=== PATIENT | female | born 1945 | race Caucasian/White ===

== ENCOUNTER 2019-12-26 17:49 | Inpatient (IN) | payer MEDICARE, SELFPAY ==
[2019-12-26] VITALS (11 sets, daily range): BP systolic 165–228; BP diastolic 94–110; PULSE 82–102; RESP 8–33; TEMP 36.7–36.8; O2SAT 94–100; BMI 15.2
--- NOTE | 2019-12-26 17:49 | ED_ITS ---
Entered by Latonya Hudson, acting as scribe for HPI - SOB/Dyspnea General: Chief Complaint: Shortness of Breath/Dyspnea Stated Complaint: SOB Time Seen by Provider: 12/26/19 18:17 History of Present Illness: HPI Narrative: 74 yo female presents with shortness of breath. Pt has COPD. Family has noticed that pt has been altered more diana. Pt states that she will panic when she becomes increasingly short of breath. Family states that she has been coughing. MD elicited complaint: shortness of breath Associated symptoms: Reports orthopnea; Deny abdominal pain, chest pain, dizziness, fever(s), nausea, palpitations or vomiting Review of Systems Const: Denies: fever or chills Eyes: Denies: change in vision or blurry vision ENMT: Reports: painful swallowing and hoarseness; Denies: swelling of lips/tongue or facial/sinus pain Card: Reports: shortness of breath on exertion and shortness of breath when lying down; Denies: chest pain, palpitations, irregular heart rhythm, edema or swelling of feet/ankles Resp: Reports: shortness of breath, productive cough and wheezing; Denies: non-productive cough GI: Denies: abdominal pain, nausea or vomiting : Denies: painful urination or blood in urine Skin/Breast: Denies: rash, itching or redness Neuro: Reports: confusion; Denies: headache, dizziness or vertigo Psych: Reports: anxiety PFSH ED PFSH: Statuses (acute, chronic, etc) shown below reflect problem list status as previously entered and may not be historically accurate Medical History (Updated 12/26/19 @ 22:53 by Adalberto Roman MD) Anxiety and depression (Acute) Chest pain (Acute) COPD (chronic obstructive pulmonary disease) (Acute) Hyperlipidemia (Acute) Hypertension (Acute) Multiple sclerosis (Acute) Type 2 diabetes mellitus (Acute) Surgical History (Updated 12/26/19 @ 22:46 by Adalberto Roman MD) History of appendectomy (Acute) Family History (Updated 12/26/19 @ 22:46 by Adalberto Roman MD) Other Diabetes Hypertension Social History (Updated 12/26/19 @ 22:46 by Adalberto Roman MD) Smoking and tobacco status: current some day smoker Alcohol intake: never Substance/Drug Use: never Physical Exam Const: GENERAL APPEARANCE: well developed ORIENTATION/CONSCIOUSNESS: Yes oriented to person; not oriented to place and not oriented to time HENMT: COMMON NORMALS: normocephalic, external ears normal and external nose normal HEAD & SCALP: normocephalic; no scalp tenderness FACE & SINUS: normal facial exam NOSE: external nose normal and no nasal discharge EXTERNAL EAR: Yes external ears normal MOUTH: tongue normal TEETH & GINGIVA: no abnormal tooth and associated gingiva THROAT: posterior oropharynx normal; no peritonsillar mass Eye: COMMON NORMALS: PERRL, EOMs intact bilaterally and conjunctivae normal EYELID: eyelids normal CONJUNCTIVA: Yes conjunctivae normal PUPIL: Yes PERRL Neck/C-Spine: COMMON NORMALS: full ROM GENERAL: No tracheal deviation Chest: COMMONS NORMALS: inspection of chest normal CHEST: No tenderness Resp: EFFORT & INSPECTION: Yes tachypneic, Yes respiratory distress, No retractions, Yes uses accessory muscles and No tracheal deviation AUSCULTATION: no rhonchi, wheezes and diminished lung sounds Cardio: COMMON NORMALS: regular rate and regular rhythm RATE: regular rate RHYTHM: regular rhythm HEART SOUNDS: no murmurs PERIPHERAL PULSES: radial pulses present GI: INSPECTION: No abdominal distension AUSCULTATION: No hyperactive bowel sounds and No hypoactive bowel sounds PALPATION: No guarding and No rigid Neuro: SENSORIUM/ORIENTATION: Yes oriented to person, No oriented to place and No oriented to time Psych: COMMON NORMALS: negative for mental status grossly normal Skin: COMMON NORMALS: no rashes or lesions noted GENERAL SKIN EXAM: no rashes or lesions noted Course ED course: 74-year-old female presents with confusion, and significant shortness of breath with wheezing. She had a bit of productive cough, no fever. She was found to be in respiratory acidosis with a PCO2 of 84. Since she was awake and talking, BiPAP trial was ordered. She has been given nebulizer treatments as well as Solu-Medrol. She is somewhat improved. Blood gas repeat is pending. She does not have pneumonia or an infiltrate. Her BNP is mildly elevated, but troponins did not change. She will be admitted for COPD exacerbation and hypoxic hypercapnic respiratory failure. Consultations: Consultation #1: sandy Vital Signs: Vital signs: Vital Signs Temperature 98.1 F 12/26/19 22:39 Pulse Rate 102 H 12/26/19 23:55 Respiratory Rate 20 H 12/26/19 22:39 Blood Pressure 179/110 12/26/19 22:39 Pulse Oximetry 96 12/26/19 23:55 MDM - SOB/Dyspnea Lab Data: Labs: Lab Results 12/26/19 12/26/19 12/26/19 Range/Units 18:50 18:50 18:50 WBC 8.8 (4.0-10.0) 10^3/ uL RBC 4.08 L (4.1-5.3) 10^6/u L Hgb 12.7 (11.5-15.3) g/dL Hct 41.3 (37.0-47.0) % MCV 101.2 H (81-99) fL MCH 31.1 (28.0-34.0) pg MCHC 30.8 (30.0-36.0) g/dL RDW 11.4 L (12.1-15.1) % Plt Count 290 (130-400) 10^3/c mm MPV 10.0 (7.4-10.4) fL Neut % (Auto) 84.8 % Lymph % (Auto) 9.0 % [place] % (Auto) 5.0 % Eos % (Auto) 0.5 % Baso % (Auto) 0.5 % Neut # (Auto) 7.4 (1.8-7.7) 10^3/u L Lymph # (Auto) 0.8 (0.8-4.8) 10^3/u L [place] # (Auto) 0.4 (0.2-0.9) 10^3/u L Eos # (Auto) 0.0 (0.0-0.8) 10^3/u L Baso # (Auto) 0.0 (0.0-0.1) 10^3/u L Nucleated RBC % (a uto) 0 % Nucleated RBCs # 0.0 /100WBC Specimen Type Sample Site ABG pH (7.35-7.45) ABG pCO2 (35-45) mmHg ABG pO2 (80.0-100.0) mmH g ABG HCO3 (22-26) mmol/L ABG Base Excess (-2.0-2.0) mmol/ L Bob Test Hematocrit (37-47) % Hgb O2 Saturation (95-100) % Carboxyhemoglobin (0.4-20.1) %THgb Methemoglobin (0.4-1.5) % Total Hemoglobin (12-16) g/dL O2 Delivery Device O2 Liters/Min % Access Registrar ID Sodium 131 L (136-145) mmol/L Potassium 4.5 (3.5-5.1) mmol/L Chloride 82 L (98-107) mmol/L Carbon Dioxide 41 H (22-29) mmol/L Anion Gap 12.5 (5-19) BUN 14 (8-23) mg/dL Creatinine 0.5 (0.5-0.9) mg/dL Glucose 136 H (65-115) mg/dL Calcium 9.6 (8.5-10.5) mg/dL Total Bilirubin 0.2 (0.15-1.2) mg/dL AST 15 (0-32) U/L ALT 13 (0-33) U/L Alkaline Phosphata se 108 H (35-105) IU/L Troponin T Baselin e 15 H (0-10) ng/mL Troponin T 120 Min [place] (0-10) ng/mL Delta Troponin T (0-10) ABS# NT-Pro-B Natriuret Pep 1055 H (0-450) pg/mL Total Protein 6.5 L (6.6-8.7) g/dL Albumin 4.1 (3.5-5.2) g/dL Globulin 2.4 (1.3-4.6) g/dL Influenza Type A A g (Negative) POC Influenza B Ag (Negative) 12/26/19 12/26/19 12/26/19 Range/Units 19:10 19:30 20:30 WBC (4.0-10.0) 10^3/ uL RBC (4.1-5.3) 10^6/u L Hgb (11.5-15.3) g/dL Hct (37.0-47.0) % MCV (81-99) fL MCH (28.0-34.0) pg MCHC (30.0-36.0) g/dL RDW (12.1-15.1) % Plt Count (130-400) 10^3/c mm MPV (7.4-10.4) fL Neut % (Auto) % Lymph % (Auto) % [place] % (Auto) % Eos % (Auto) % Baso % (Auto) % Neut # (Auto) (1.8-7.7) 10^3/u L Lymph # (Auto) (0.8-4.8) 10^3/u L [place] # (Auto) (0.2-0.9) 10^3/u L Eos # (Auto) (0.0-0.8) 10^3/u L Baso # (Auto) (0.0-0.1) 10^3/u L Nucleated RBC % (a uto) % Nucleated RBCs # /100WBC Specimen Type Arterial Sample Site Brachial, right ABG pH 7.32 L (7.35-7.45) ABG pCO2 84.3 H* (35-45) mmHg ABG pO2 77.2 L (80.0-100.0) mmH g ABG HCO3 43.2 H (22-26) mmol/L ABG Base Excess 12.3 H (-2.0-2.0) mmol/ L Bob Test Pos Hematocrit 49.9 H (37-47) % Hgb O2 Saturation 92.3 L (95-100) % Carboxyhemoglobin 2.2 (0.4-20.1) %THgb Methemoglobin 0.8 (0.4-1.5) % Total Hemoglobin 16.3 H (12-16) g/dL O2 Delivery Device Nc O2 Liters/Min 3.0 % Access Registrar ID anonymous Sodium (136-145) mmol/L Potassium (3.5-5.1) mmol/L Chloride (98-107) mmol/L Carbon Dioxide (22-29) mmol/L Anion Gap (5-19) BUN (8-23) mg/dL Creatinine (0.5-0.9) mg/dL Glucose (65-115) mg/dL Calcium (8.5-10.5) mg/dL Total Bilirubin (0.15-1.2) mg/dL AST (0-32) U/L ALT (0-33) U/L Alkaline Phosphata se (35-105) IU/L Troponin T Baselin e (0-10) ng/mL Troponin T 120 Min [place] 16.66 H (0-10) ng/mL Delta Troponin T 1.66 (0-10) ABS# NT-Pro-B Natriuret Pep (0-450) pg/mL Total Protein (6.6-8.7) g/dL Albumin (3.5-5.2) g/dL Globulin (1.3-4.6) g/dL Influenza Type A A g Negative (Negative) POC Influenza B Ag Negative (Negative) Critical Care Time Critical Care Time: Critical Care Time: Yes Total Critical Care Time: 35 Attestation: This case had a high probability of a clinically significant, sudden, or life threatening deterioration of this patient's condition which required my full and direct attention, intervention and personal management. Discharge Plan Discharge Admit Provider: Adalberto Roman Discharge Date/Time: 12/26/19 23:17 Coding Level of Care Code ED Pearl Diver for Chg Fwd The documentation recorded by the Tristan harris Kialy, accurately reflects the service I personally performed and the decisions made by , Vitaly Barksdale DO Dec 26, 2019 17:49
--- NOTE | 2019-12-26 18:37 | XR_ITS ---
WS: [id number] ONE VIEW CHEST HISTORY: 74 years old Female with sob AP upright chest comparison 05/20/2017 FINDINGS: Marked lung hyperexpansion reidentified. No pneumothorax or definite pleural effusion. Elongation of the cardiomediastinal silhouette. Central pulmonary artery enlargement. No subdiaphragmatic free air. Diffuse bone demineralization. XR/XR chest 1V portable [id number] IMPRESSION: Severe chronic emphysema; no acute cardiopulmonary findings.
--- NOTE | 2019-12-26 18:38 | ECG_ITS ---
Measurements Intervals [place] Rate: 80 P: 77 TN: 96 QRS: 64 QRSD: 86 T: 74 QT: 343 QTc: 396 SINUS RHYTHM WITH SHORT TN INTERVAL POSSIBLE RIGHT VENTRICULAR CONDUCTION DELAY [RSR (QR) IN V1/V2] Compared to ECG 05/20/2017 09:07:23 Short TN interval now present Electronically Signed On 12-26-2019 22:17:43 DESIZING MACHINE OPERATOR by Gabbie Romero M.D. [email or web address]
[2019-12-26] MEDS: enalaprilat 1.25 mg/mL Inj IVP (18:52)
[2019-12-26 19:01] LABS: Basophils % 0.5 %; Eosinophils % 0.5 %; Hematocrit 41.3 % (37.0-47.0); Hemoglobin 12.7 g/dL (11.5-15.3); Lymphocytes # 0.8 10^3/uL (0.8-4.8); Mean Corpuscular HGB Conc 30.8 g/dL (30.0-36.0); Mean Corpuscular Hemoglobin 31.1 pg (28.0-34.0); Mean Corpuscular Volume 101.2 fL (81-99); Monocytes # 0.4 10^3/uL (0.2-0.9); Neutrophils # 7.4 10^3/uL (1.8-7.7); Neutrophils % 84.8 %; Nucleated Red Blood Cells % 0 %; Platelet Count 290 10^3/cmm (130-400); Red Blood Count 4.08 10^6/uL (4.1-5.3); Red Cell Distribution Width 11.4 % (12.1-15.1); White Blood Count 8.8 10^3/uL (4.0-10.0)
[2019-12-26 19:19] LABS: Troponin(5th) Baseline 15 ng/mL (0-10)
[2019-12-26 19:29] LABS: Alanine Aminotransferase 13 U/L (0-33); Albumin Level 4.1 g/dL (3.5-5.2); Alkaline Phosphatase 108 IU/L (35-105); Anion Gap 12.5 (5-19); Aspartate Amino Transferase 15 U/L (0-32); Blood Urea Nitrogen 14 mg/dL (8-23); Calcium 9.6 mg/dL (8.5-10.5); Chloride 82 mmol/L (98-107); Creatinine Clr Calc Pharmacy 42.8391; Globulin 2.4 g/dL (1.3-4.6); Glucose 136 mg/dL (65-115); NT Pro B Type Natriuretic Pept 1055 pg/mL (0-450); Potassium 4.5 mmol/L (3.5-5.1); Sodium 131 mmol/L (136-145); Total Bilirubin 0.2 mg/dL (0.15-1.2); Total Protein 6.5 g/dL (6.6-8.7)
[2019-12-26] MEDS: ipratropium-albuterol 3 mL Neb INHALATION (19:30)
[2019-12-26 19:41] LABS: ABG PH Result 7.32 (7.35-7.45); Arterial Blood Gas Hematocrit 49.9 % (37-47); Base Excess ABG 12.3 mmol/L (-2.0-2.0); Blood Gas Allen Test Pos; Blood Gas Sample Site Brachial, right; Blood Gas Sample Type Arterial; Carboxyhemoglobin 2.2 %THgb (0.4-20.1); HCO3 ABG 43.2 mmol/L (22-26); HGB O2 Sat 92.3 % (95-100); Methemoglobin 0.8 % (0.4-1.5); Oxygen Device NC; PO2 ABG 77.2 mmHg (80.0-100.0); Total Hemoglobin 16.3 g/dL (12-16)
[2019-12-26 19:41] LABS: Carbon Dioxide 41 mmol/L (22-29)
[2019-12-26 20:03] LABS: Influenza A by IFA Negative (Negative); Influenza B by IFA Negative (Negative)
--- NOTE | 2019-12-26 20:26 | PC.NURSE ---
EKG done at 2020 and shown to ER doctor
--- NOTE | 2019-12-26 20:38 | ECG_ITS ---
Measurements Intervals [place] Rate: 81 P: 82 SC: 132 QRS: 72 QRSD: 84 T: 84 QT: 348 QTc: 404 SINUS RHYTHM POSSIBLE RIGHT ATRIAL ENLARGEMENT [0.25mV P WAVE] LEFT ATRIAL ENLARGEMENT [-0.15mV P WAVE IN V1/V2] POSSIBLE RIGHT VENTRICULAR CONDUCTION DELAY [RSR (QR) IN V1/V2] SEPTAL MYOCARDIAL INFARCTION , OF INDETERMINATE AGE [40+ ms Q WAVE IN V1/V2] Compared to ECG 05/20/2017 09:07:23 Myocardial infarct finding now present Electronically Signed On 12-26-2019 22:19:52 DIE FILER by Gabbie Romero M.D. [email or web address]
[2019-12-26 20:52] LABS: Troponin 5 2HR 16.66 ng/mL (0-10); Troponin 5 2HR Delta 1.66 ABS# (0-10)
[2019-12-26] MEDS: morphine 4 mg/mL SDV 1 mL 2 MG IVP (21:18)
[2019-12-26] MEDS: hyDRALAzine 20 mg/mL INJ 1 mL 10 MG IVP (22:27)
--- NOTE | 2019-12-26 22:29 | CTR_ITS ---
PROCEDURE INFORMATION: Exam: CT Chest Without Contrast Exam date and time: 12/26/2019 10:30 PM Age: 74 years old Clinical indication: Shortness of breath; Additional info: SOB, cough TECHNIQUE: Imaging protocol: Computed tomography of the chest without contrast. Total DLP: 351.92 mGy-cm Radiation optimization: All CT scans at this facility use at least one of these dose optimization techniques: automated exposure control; mA and/or kV adjustment per patient size (includes targeted exams where dose is matched to clinical indication); or iterative reconstruction. COMPARISON: CR XR chest 1V portable [id number] 12/26/2019 6:54 PM FINDINGS: Lungs: There is severe emphysematous changes. Large bulla and blebs are noted in the lung bases. A few small ground-glass nodules are noted in the lungs including a 4 mm nodule right lung image 23, 3 mm subpleural nodule right lung image 23, 4 mm nodule right lung image 24, 4 mm ground-glass nodule right lower lobe image 38. There is mild apical scarring. No airspace consolidation. There is bronchiectasis with peribronchial thickening especially in the lower lobes. There is some basilar compressive atelectasis. No airspace consolidation or significant pneumonitis. Pleural space: No pleural effusion. There is no pneumothorax. Heart: Unremarkable. No cardiomegaly. No pericardial effusion. Aorta: Unremarkable. No aortic aneurysm. Lymph nodes: Unremarkable. No enlarged lymph nodes. Bones/joints: Unremarkable. No acute fracture. Soft tissues: Unremarkable. Other findings: A few calcified granulomas are noted. CT/CT chest con [id number] IMPRESSION: 1. Severe emphysematous changes. No pneumothorax. 2. Multiple small ground-glass pulmonary nodules measuring up to 4 mm in size.For patients at low risk (minimal or absent history of smoking and of other known risk factors), no routine follow-up is indicated. For patients at high risk (history of smoking or of other known risk factors), consider optional CT at 12 months. (chan Starr al., Fleischner Society, 2017) Radiation Dose CTDIVOL = (mGy): DLP = 351.92 (mGy-cm)
[2019-12-26 22:38] LABS: ABG PCO2 84.3 mmHg (35-45)
--- NOTE | 2019-12-26 22:39 | PM.HP ---
Providers/Chief Complaint Admitting Physician: Adalberto Roman MD Primary Care Provider: Stacey Dickinson, DIRECTOR OF SUSTAINABILITY-C Chief Complaint: SOB History of Present Illness Deidra De La Torre is a 74 year old female with a past medical history of COPD 2 L oxygen dependent, PFT in 2012 showed an FEV1/FVC of 70%, greater than 17-onbs-toct history of smoking, type 2 diabetes mellitus, hypertension, hyperlipidemia not on medications, anxiety and depression who presents to the emergency room due to complaints of shortness of breath, cough, fevers, chills. Patient lives in [place], lives with her , is fairly functional, no CPAP use at home, uses 2 L oxygen continuously throughout the day. Patient states that for the past week, she has had shortness of breath with exertion, productive cough yellow-green sputum, increased amount, fevers, chills, fatigue, malaise. Patient's family was going to bring her on Sunday, but she seemed to get better. However patient's progressively got more short of breath, the family feels that she was gasping for air, and was acting confused thus family brought her in for evaluation. Patient in addition states that she has intermittent substernal chest pain, sharp, lasting a few seconds, nonradiating, associate with shortness of breath, no lightheadedness, no dizziness, no diarrhea no diaphoresis, no personal history of CAD, no history of CABG, no history of stress test. Review of Systems Const: Reports: fever, chills, fatigue and malaise Eyes: Denies: change in vision or blurry vision ENMT: Denies: nasal congestion Card: Reports: chest pain and shortness of breath on exertion; Denies: palpitations, irregular heart rhythm, edema or lightheadedness Resp: Reports: shortness of breath, productive cough, change in phlegm color and chest congestion; Denies: non-productive cough or wheezing GI: Denies: abdominal pain, nausea, vomiting, vomiting blood, diarrhea, constipation, blood in stool or black tarry stool : Denies: flank pain, painful urination or urinary frequency Musc: Denies: neck pain or back pain Skin/Breast: Denies: rash Neuro: Denies: headache, dizziness or vertigo Psych: Denies: anxiety or depression Endo: Denies: excessive urination or excessive thirst Medications/Allergies Additional Medication Information Additional Medication Information: Metformin one thousand twice daily Metoprolol 50 twice daily Lisinopril 20 mg once daily Effexor 150 mg once daily PFSH Acute PFSH: Statuses (acute, chronic, etc) shown below reflect problem list status as previously entered and may not be historically accurate Medical History (Updated 12/26/19 @ 22:53 by Adalberto Roman MD) Anxiety and depression (Acute) Chest pain (Acute) COPD (chronic obstructive pulmonary disease) (Acute) Hyperlipidemia (Acute) Hypertension (Acute) Multiple sclerosis (Acute) Type 2 diabetes mellitus (Acute) Surgical History (Updated 12/26/19 @ 22:46 by Adalberto Roman MD) History of appendectomy (Acute) Family History (Updated 12/26/19 @ 22:46 by Adalberto Roman MD) Other Diabetes Hypertension Social History (Updated 12/26/19 @ 22:46 by Adalberto Roman MD) Smoking and tobacco status: current some day smoker Alcohol intake: never Substance/Drug Use: never Vitals/I&O/Wt Last Vital Signs Temp 98.3 F 12/26/19 17:50 Pulse 82 12/26/19 22:00 Resp 23 H 12/26/19 22:00 BP 179/110 12/26/19 22:00 Pulse Ox 96 12/26/19 22:00 Weight last 48 hrs Weight 45.359 kg Physical Exam Const: COMMON NORMALS: no apparent distress and oriented x3 GENERAL APPEARANCE: cooperative and comfortable HENMT: COMMON NORMALS: normocephalic HEAD & SCALP: normocephalic Eye: COMMON NORMALS: PERRL, EOMs intact bilaterally and no papilledema GENERAL EYE: normal appearance of both eyes PUPIL: Yes PERRL DIRECT OPHTHALMOSCOPY: Yes no papilledema Neck/C-Spine: COMMON NORMALS: full ROM, no lymphadenopathy, no JVD and thyroid normal THYROID: thyroid normal Lymph: LYMPHATIC: no lymphadenopathy noted Chest: COMMONS NORMALS: inspection of chest normal Resp: COMMON NORMALS: normal respiratory effort, no retractions and no use of accessory muscles EFFORT & INSPECTION: Yes pursed lip breathing and Yes actively coughing AUSCULTATION: wheezes inspiratory wheezes Cardio: COMMON NORMALS: no JVD, regular rate, regular rhythm, S1 normal heart sound, S2 normal heart sound, no gallops, no clicks and no murmurs RATE: regular rate RHYTHM: regular rhythm HEART SOUNDS: S1 normal and S2 normal GI: COMMON NORMALS: normal to inspection, nondistended, normoactive bowel sounds, soft to palpation, non-tender and no hepatosplenomegaly PALPATION: Yes soft and Yes no hepatosplenomegaly Extremity: COMMON NORMALS: normal to inspection, full ROM and no pedal edema Neuro: COMMON NORMALS: oriented x3, CN's II-XII intact bilaterally, moves all extremities and no focal motor deficits Psych: COMMON NORMALS: mental status grossly normal, thought process normal and cooperative THOUGHT PROCESS: normal thought process Data : 12/26/19 18:50 12/26/19 18:50 Micro: Microbiology 12/26/19 18:56 Blood Culture - Preliminary Blood SPECIMEN COLLECTED 12/26/19 18:50 Blood Culture - Preliminary Blood SPECIMEN COLLECTED A&P Assessment and plan (1) Acute hypercapnic respiratory failure: -Secondary to COPD -has some component of CHF? BNP is 1055, no bilateral extremity edema, chest x-ray does show some pulmonary vascular congestion -PCO2 84.3, pH 7.32, PO2 77.2 -Chest x-ray shows hyperinflated lungs -It seems like patient lives in the 80s PCO2, as patient's family states that she acts confused at times as -Echo in 2012 showed an ejection fraction of 58% outpatient -Currently patient has CO2 narcosis Plan: -Okay to admit to general medical floors -BiPAP overnight, patient will clinically benefit with BiPAP for her COPD -CT of the chest -Ipratropiumevery 4 scheduled, every 2 as needed -Solu-Medrol 40 every 8 -Levaquin once daily -1 dose of Lasix, daily dose based on clinical progress -Echocardiogram pending -Patient is agreeable to elective intubation if required Status: Acute Code(s): J96.02 - Acute respiratory failure with hypercapnia (2) Hypertensive urgency: -Continue home metoprolol, lisinopril -We will need to reach out to patient's pharmacy as patient and family are unsure about dosing of medications -Telemetry monitoring -Labetalol PRN Status: Acute Code(s): I16.0 - Hypertensive urgency (3) CO2 narcosis: And is having episodes of agitation and confusion secondary to CO2 narcosis We will try a low-dose benzo 0.5 every 12 as needed, we will have to be careful not to depress her respiratory drive If not can try Haldol Status: Acute Code(s): R06.89 - Other abnormalities of breathing (4) Hypertension: Status: Acute Code(s): I10 - Essential (primary) hypertension (5) Hyperlipidemia: Status: Acute Code(s): E78.5 - Hyperlipidemia, unspecified (6) COPD (chronic obstructive pulmonary disease): Status: Acute Code(s): J44.9 - Chronic obstructive pulmonary disease, unspecified (7) Anxiety and depression: Status: Acute Code(s): F41.9 - Anxiety disorder, unspecified; F32.9 - Major depressive disorder, single episode, unspecified (8) Type 2 diabetes mellitus: Low-dose sliding scale Status: Acute Code(s): E11.9 - Type 2 diabetes mellitus without complications (9) Multiple sclerosis: Chronically fatigued, weak from multiple sclerosis, not on active treatment Status: Acute Code(s): G35 - Multiple sclerosis (10) Chest pain: -Substernal, sharp, lasting a few seconds, no CAD history -Symptoms do not sound cardiac in nature -Baseline troponin was 15, 120-minute 16.66, delta 1.66 -EKG has no significant ST-T wave changes -Likely elevated troponin supply demand ischemia, type II NSTEMI Plan: -Trend troponins, serial EKGs, monitor for chest pain -Continue telemetry monitoring -Cardiac echocardiogram Status: Acute Code(s): R07.9 - Chest pain, unspecified Attestations Medical Necessity Statement*: Patient requires hospitalization, greater than 2 midnights, inpatient, for acute hypercapnic respiratory failure, chest pain Coding Level of Care Code Acute Pecan Huller for [facility] Fwd Diagnoses Acute hypercapnic respiratory failure J96.02 Hypertensive urgency I16.0 CO2 narcosis R06.89 Hypertension I10 Hyperlipidemia E78.5 COPD (chronic obstructive pulmonary disease) J44.9 Anxiety and depression F41.9; F32.9 Type 2 diabetes mellitus E11.9 Multiple sclerosis G35 Chest pain R07.9
[2019-12-26] MEDS: LORazepam 2 mg/mL INJ 1 mL 1 MG IVP (22:47)
[2019-12-27] VITALS (19 sets, daily range): BP systolic 119–186; BP diastolic 62–98; PULSE 78–103; RESP 16–25; TEMP 36.4–37.1; O2SAT 93–100
--- NOTE | 2019-12-27 00:27 | USCV_ITS ---
Deidra De La Torre Age: 74 Gender: F : 1945 Exam Date: 12/27/2019 09:50 Ordering Phys: Adalberto Roman MD Technologist: Leah Trammell Exam Location: [facility] [place] Indication: Shortness of breath BP: 119 / 62 HR: 78 Rhythm: Sinus Technical Quality: Technically difficult study MEASUREMENTS (Male / Female) Normal Values 2D ECHO LV Diastolic Diameter PLAX 3.7 cm 4.2 - 5.9 / 3.9 - 5.3 cm LV Systolic Diameter PLAX 2.3 cm LV Chamber Size 2.9 cm IVS Diastolic Thickness 1.1 cm 0.6 - 1.0 / 0.6 - 0.9 cm IVS Systolic Thickness 1.7 cm LVPW Diastolic Thickness 0.7 cm 0.6 - 1.0 / 0.6 - 0.9 cm LVPW Systolic Thickness 1.3 cm RV Chamber Size 1.7 cm LVOT Diameter 1.8 cm LV Ejection Fraction 2D Teich 70.1 % LA Diameter 1.8 cm LA Width 2.4 cm LA Height 3.1 cm RA Width 2.3 cm RA Height 1.8 cm Aorta at Sinotubular Diameter 1.9 cm M-MODE LV Diastolic Diameter MM 4.2 cm 4.2 - 5.9 / 3.9 - 5.3 cm LV Systolic Diameter MM 2.2 cm LV Ejection Fraction MM Teich 79.0 % IVS Diastolic Thickness MM 1.1 cm 0.6 - 1.0 / 0.6 - 0.9 cm IVS Systolic Thickness MM 1.6 cm LVPW Diastolic Thickness MM 1.2 cm 0.6 - 1.0 / 0.6 - 0.9 cm LVPW Systolic Thickness MM 1.7 cm RV Diastolic Diameter MM 0.7 cm DOPPLER AV Peak Velocity 139.0 cm/s LVOT Peak Velocity 117.0 cm/s AV Area Cont Eq vti 1.9 cm squared AV Area Cont Eq pk 2.1 cm squared MV Area PHT 2.5 cm squared Mitral E to A Ratio 0.7 MV E' Velocity 6.0 cm/s Mitral E to MV E' Ratio 10.2 Mitral E to LV E' Lateral Ratio 11.1 Mitral E to LV E' Septal Ratio 9.5 TR Peak Velocity 310.0 cm/s TR Peak Gradient 38.5 mmHg TV Peak E Velocity 47.0 cm/s Right Atrial Pressure 3.0 mmHg Pulmonary Artery Systolic Pressu 41.4 mmHg FINDINGS Left Ventricle Normal left ventricular cavity size. Normal left ventricular systolic function. No regional wall motion abnormalities. Left ventricular ejection fraction is estimated at 60 %. Grade I/IV diastolic dysfunction (abnormal relaxation filling pattern), normal to mildly elevated filling pressures. Right Ventricle Normal right ventricular size. Moderate pulmonary hypertension, RVSP 41.4 mmHg. Right Atrium The right atrium is normal in size. Left Atrium Moderately increased left atrial size. Mitral Valve Moderately thickened mitral valve. Mitral annular calcification. No mitral valve stenosis. Aortic Valve Structurally normal aortic valve without significant sclerosis or stenosis. There is no aortic regurgitation. Tricuspid Valve Moderate tricuspid valve regurgitation. Pulmonic Valve Structurally normal pulmonic valve without significant stenosis. There is no pulmonic regurgitation. Pericardium Normal pericardium without effusion. Aorta Normal ascending aorta dimension. CONCLUSIONS 1-Normal left ventricular cavity size. Normal left ventricular systolic function. No regional wall motion abnormalities. Left ventricular ejection fraction is estimated at 60 %. Grade I/IV diastolic dysfunction (abnormal relaxation filling pattern), normal to mildly elevated filling pressures. 2-Normal right ventricular size. Moderate pulmonary hypertension, RVSP 41.4 mmHg. 3-The right atrium is normal in size. 4-Moderately increased left atrial size. 5-Moderate tricuspid valve regurgitation. 6-There is no pericardial effusion. 7-There are no prior echocardiogram studies to compare. Gabbie Romero MD (Electronically Signed) Final Date: 27 December 2019 23:56 S
[2019-12-27 00:35] LABS: Glucose Point of Care 219 mg/dL (70-110)
--- NOTE | 2019-12-27 00:38 | ECG_ITS ---
Measurements Intervals [place] Rate: 99 P: 78 WV: 116 QRS: 59 QRSD: 82 T: 81 QT: 340 QTc: 438 SINUS RHYTHM WITH SHORT WV INTERVAL RIGHT ATRIAL ENLARGEMENT [0.3mV P WAVE] POSSIBLE LEFT ATRIAL ENLARGEMENT [-0.1mV P WAVE IN V1/V2] Compared to ECG 12/26/2019 20:24:33 Atrial abnormality now present Electronically Signed On 12-28-2019 0:21:11 OLIVER FILTER OPERATOR by Gabbie Romero M.D. [id number]
[2019-12-27] MEDS: enoxaparin 40 mg/0.4 mL Syringe SUBCUT (01:47)
[2019-12-27 01:49] LABS: Procalcitonin 0.15 ng/mL (0-0.5)
[2019-12-27] MEDS: ipratropium-albuterol 3 mL Neb INHALATION ×6 (03:41→23:45)
[2019-12-27 06:10] LABS: Basophils % 0.2 %; Hematocrit 43.9 % (37.0-47.0); Hemoglobin 13.6 g/dL (11.5-15.3); Lymphocytes # 0.6 10^3/uL (0.8-4.8); Lymphocytes % 9.9 %; Mean Corpuscular Volume 103.3 fL (81-99); Mean Platelet Volume 10.4 fL (7.4-10.4); Monocytes # 0.1 10^3/uL (0.2-0.9); Neutrophils # 5.3 10^3/uL (1.8-7.7); Neutrophils % 88.6 %; Nucleated Red Blood Cells % 0 %; Platelet Count 351 10^3/cmm (130-400); Red Blood Count 4.25 10^6/uL (4.1-5.3); Red Cell Distribution Width 11.6 % (12.1-15.1); White Blood Count 5.9 10^3/uL (4.0-10.0)
[2019-12-27 06:27] LABS: Glucose Point of Care 174 mg/dL (70-110)
--- NOTE | 2019-12-27 06:29 | PC.NURSE ---
0251 Patient's family is refusing po meds and Lasix. Daughter states her Mom is dry, she hasn't drank/eaten very much in the last few days.
[2019-12-27 06:37] LABS: Alanine Aminotransferase 13 U/L (0-33); Albumin Level 4.2 g/dL (3.5-5.2); Alkaline Phosphatase 112 IU/L (35-105); Anion Gap 18.9 (5-19); Blood Urea Nitrogen 23 mg/dL (8-23); Calcium 10.4 mg/dL (8.5-10.5); Carbon Dioxide 36 mmol/L (22-29); Chloride 86 mmol/L (98-107); Globulin 3.5 g/dL (1.3-4.6); Glucose 181 mg/dL (65-115); Magnesium 1.8 mg/dL (1.7-2.3); Phosphorus 3.6 mg/dL (2.5-4.5); Potassium 4.9 mmol/L (3.5-5.1); Sodium 136 mmol/L (136-145); Total Bilirubin 0.3 mg/dL (0.15-1.2); Total Protein 7.7 g/dL (6.6-8.7)
[2019-12-27 06:38] LABS: Chol HDL Ratio 2.85 mg/dL (0.0-4.40); Cholesterol 231 mg/dL (0-200); HDL Cholesterol 81 mg/dL (60-100); LDL Cholesterol Calculated 131 mg/dL (50-129); LDL HDL Ratio 1.62 RATIO (0.00-3.22); Triglycerides 95 mg/dL (0-150)
[2019-12-27 06:44] LABS: Aspartate Amino Transferase 19 U/L (0-32)
[2019-12-27 06:49] LABS: Estmated Average Glucose 140; Hemoglobin A1C 6.5 % (4.0-6.0)
[2019-12-27 07:02] LABS: Add Urine Microscopic? YES; Bilirubin Urine Neg (NEGATIVE); Blood Urine 2+ (Negative); Glucose Urine UA Trace (Normal); Ketones Urine 1+ (Negative); Leukocyte Esterase Urine 2+ (Negative); Nitrate Urine Negative (Negative); Protein Urine 3+ (Negative); Urine Appearance Hazy (CLEAR); Urine Color Yellow (Yellow); Urobilinogen Urine Norm (Negative); pH Urine 6 (5-7)
[2019-12-27 07:06] LABS: Mucus Urine TRACE
[2019-12-27 07:07] LABS: RBC Urine 0-4 /hpf (0-2); Squamous Epithelial Cell Urine 15-25 (0-5); Transitional Epi Cells Urine 0-4 /hpf; WBC Urine 40-55 /hpf (0-5)
[2019-12-27 07:08] LABS: Bacteria Urine 2+
[2019-12-27 07:09] LABS: Add Urine Culture? No
[2019-12-27 08:04] LABS: ABG PH Result 7.38 (7.35-7.45); Arterial Blood Gas Hematocrit 43.1 % (37-47); Base Excess ABG 13.1 mmol/L (-2.0-2.0); Blood Gas Sample Site Brachial, right; Blood Gas Sample Type Arterial; Carboxyhemoglobin 1.3 %THgb (0.4-20.1); HCO3 ABG 41.7 mmol/L (22-26); HGB O2 Sat 91.4 % (95-100); Methemoglobin 0.7 % (0.4-1.5); Oxygen Device BIPAP; PO2 ABG 68.9 mmHg (80.0-100.0); Total Hemoglobin 14.1 g/dL (12-16)
[2019-12-27 08:07] LABS: ABG PCO2 70.4 mmHg (35-45)
[2019-12-27] MEDS: venlafaxine ER (24HR) 150 mg Capsule PO (09:25)
[2019-12-27] MEDS: aspirin 81 mg EC Tablet PO (09:25)
[2019-12-27] MEDS: levofloxacin-dextrose 5 % 750 MG/150 ML PREMIX 150 MG IV (09:26)
[2019-12-27] MEDS: lisinopril 20 mg Tablet PO (09:26)
[2019-12-27] MEDS: metoprolol tartrate 50 mg Tablet PO ×2 (09:26→18:20)
[2019-12-27 12:32] LABS: Glucose Point of Care 97 mg/dL (70-110)
[2019-12-27] MEDS: ondansetron 2 mg/ML SDV 2 mL 4 MG IVP (13:06)
--- NOTE | 2019-12-27 15:07 | PC.CHAP ---
Pastoral Care Encounter/Spiritual Assessment Type of Contact [] Declined automatic engraver visit [] Patient/Family/Request visit [] Outpatient visit [] Follow-up visit [] Physician referral [] Code/Alert [] Routine visit [] Staff referral [] Actively dying [] Patient sleeping [] Family support [] [] Out of room [] Palliative care [] [] Receiving care in room [] Pre-surgical visit [] Trauma [] Long length of stay [] ICU visit [] Other: Relational/Emotional Strength [] Patient feels connected with others/family/visitors/staff [] Distress [] Loneliness/isolation [] Abandonment Spirituality of Patient [] Person of Tiera [] Attends Roman Catholic of their Tiera [] Believes in Prayer [] Reads Bible or Gnosticist materials [] There are Spiritual issues to be addressed Laborer Demolition Interventions [] Prayer [] Active listening [] Non-anxious presence [] Spiritual/emotional support [] Crisis/trauma care [] Spiritual counseling [] Bereavement support [] Provided bereavement packet [] Provided Bible/devotional materials [] Provided toy/stuffed animal, coloring book to patient or family member [] Provided Communion [] Anointing/[place] [] Salvation [] Completed spiritual assessment [] Other: Impact on Illness or Injury [] Angry [] Fearful [] Anxious [] Often cries [] Exhaustion [] Unable to work [] Unable to attend mu-ism [] Unable to walk/stand [] Unable to read [] Unable to drive [] Unable to eat/drink [] Unable to sleep [] Unable to be with family [] Patient intubated [] Other: Summary Patient discharged Time spent with patient
--- NOTE | 2019-12-27 15:24 | PM.PN ---
Subjective Subjective: Interval history: She is feeling a little better. Was able to wean off BiPAP. Currently doing all right on nasal cannula. Her daughter stayed with her all night long as she was getting somewhat confused. Vitals/I&O/Wt Last Vital Signs Temp 98.4 F 12/27/19 12:00 Pulse 80 12/27/19 12:00 Resp 16 12/27/19 12:00 BP 170/98 12/27/19 12:00 Pulse Ox 93 12/27/19 12:00 12/27/19 12/27/19 12/27/19 06:59 14:59 22:59 Intake Total 320 / 320 Output Total 5 / 5 100 / 100 Balance -5 / -5 220 / 220 Weight last 48 hrs Weight 45.359 kg Physical Exam Const: COMMON NORMALS: no apparent distress and oriented x3 NUTRITIONAL APPEARANCE: underweight HENMT: COMMON NORMALS: oropharynx normal Neck/C-Spine: COMMON NORMALS: no JVD Resp: COMMON NORMALS: normal respiratory effort AUSCULTATION: wheezes and diminished lung sounds Cardio: COMMON NORMALS: no JVD, regular rhythm, S1 normal heart sound, S2 normal heart sound and no murmurs RHYTHM: regular rhythm HEART SOUNDS: S1 normal and S2 normal GI: COMMON NORMALS: normal to inspection, nondistended, normoactive bowel sounds, soft to palpation and non-tender PALPATION: Yes soft Extremity: COMMON NORMALS: no joint enlargement and no pedal edema Neuro: COMMON NORMALS: oriented x3 and moves all extremities Skin: COMMON NORMALS: no rashes or lesions noted GENERAL SKIN EXAM: no rashes or lesions noted Data : 12/27/19 05:32 12/27/19 05:32 Micro: Microbiology 12/26/19 18:56 Blood Culture - Preliminary Blood SPECIMEN COLLECTED 12/26/19 18:50 Blood Culture - Preliminary Blood SPECIMEN COLLECTED A&P Assessment and plan (1) Acute hypercapnic respiratory failure: Severe exacerbation of COPD. Has weaned down from BiPAP support. Still wheezing, decreased air entry, but so far doing well on 2 L nasal cannula. Per discussion with family at bedside including her daughter, she coughs not infrequently with food and drink. Will change to dysphagia diet. Assess with MBS. Ask for speech therapy evaluation. -Secondary to COPD There was concern for possible CHF, although to me she does not appear fluid overloaded, without signs of fluid overload on imaging. Her BNP may be elevated secondary to chronic pulmonary disease, perhaps with development of pulmonary hypertension. Pending assessment by TTE. At this time continue IV steroids due to persistent chest tightness, wheezing. Continue antibiotic, breathing treatments. Discussed with family that she is at high risk of delirium given underlying possibly mild early dementia, frailty, acute condition with steroid treatment and hospitalization. They verbalized understanding. Status: Acute Code(s): J96.02 - Acute respiratory failure with hypercapnia (2) Hypertensive urgency: Continue metoprolol, lisinopril Blood pressure still somewhat elevated. Will change diet to low-sodium. Will add amlodipine 5 mg. Labetalol PRN Status: Acute Code(s): I16.0 - Hypertensive urgency (3) CO2 narcosis: Improved. She is awake and alert. Comfortable. Cooperative. Weaned off BiPAP. Status: Acute Code(s): R06.89 - Other abnormalities of breathing (4) Hypertension: As above Status: Acute Code(s): I10 - Essential (primary) hypertension (5) Hyperlipidemia: Status: Acute Code(s): E78.5 - Hyperlipidemia, unspecified (6) COPD (chronic obstructive pulmonary disease): Status: Acute Code(s): J44.9 - Chronic obstructive pulmonary disease, unspecified (7) Anxiety and depression: Status: Acute Code(s): F41.9 - Anxiety disorder, unspecified; F32.9 - Major depressive disorder, single episode, unspecified (8) Type 2 diabetes mellitus: Low-dose sliding scale Status: Acute Code(s): E11.9 - Type 2 diabetes mellitus without complications (9) Multiple sclerosis: Chronically fatigued, weak from multiple sclerosis, not on active treatment Status: Acute Code(s): G35 - Multiple sclerosis (10) Chest pain: Currently chest pain-free. Minimal troponin elevation. No significant signs of ischemia on EKG. Pending PT evaluation. Monitor recurrence of symptoms. Status: Acute Code(s): R07.9 - Chest pain, unspecified Additional A&P Information Cognitive decline: Memory issues, very mild confusion sometimes reported by the family. Perhaps cognitive decline or early mild dementia. May benefit from subsequent assessment once out of acute episode of illness. Attestations Medical Necessity Statement*: Continue admission for assessment and management of severe exacerbation of COPD, suspected aspiration. Coding Level of Care Code Acute Senior Software Engineer for Chg Fwd Diagnoses Acute hypercapnic respiratory failure J96.02 Hypertensive urgency I16.0 CO2 narcosis R06.89 Hypertension I10 Hyperlipidemia E78.5 COPD (chronic obstructive pulmonary disease) J44.9 Anxiety and depression F41.9; F32.9 Type 2 diabetes mellitus E11.9 Multiple sclerosis G35 Chest pain R07.9
[2019-12-27] MEDS: amlodipine 5 mg Tablet PO (15:49)
[2019-12-27 17:15] LABS: Glucose Point of Care 245 mg/dL (70-110)
[2019-12-27] MEDS: nicotine 7 mg Patch 1 PATCH TRANSDERMA (18:19)
[2019-12-27] MEDS: trazodone 50 mg Tablet 25 MG PO (20:52)
[2019-12-27] MEDS: atorvastatin 40 mg Tablet PO (20:52)
[2019-12-27 20:53] LABS: Glucose Point of Care 45 mg/dL (70-110)
--- NOTE | 2019-12-27 20:58 | PC.NURSE ---
Patient's blood sugar was 45. Patient ate 1/2 her donut that she had at bedside and is drinking a diet coke. Will repeat sugar soon.
--- NOTE | 2019-12-27 21:21 | PC.NURSE ---
ACCUCHECK Accucheck reading was 45. Alert and skin slightly diaphoretic. Able to eat half of her donut she had at bedside and drank orange juice. Accucheck 98 with recheck
[2019-12-27 21:23] LABS: Glucose Point of Care 98 mg/dL (70-110)
--- NOTE | 2019-12-27 21:30 | PC.NURSE ---
Patient was turned off of oxygen by respiratory at 2114 and placed on continuos pulse ox. Patient dropped to 86% on RA and I placed patient back on 2 liter via NC. Patient returned to 93%. I notified Khang DICKERSON at this time.
[2019-12-28] VITALS (52 sets, daily range): BP systolic 110–212; BP diastolic 53–110; PULSE 66–164; RESP 16–28; TEMP 36.5–37.1; O2SAT 4–98
[2019-12-28] MEDS: enoxaparin 40 mg/0.4 mL Syringe SUBCUT (00:28)
[2019-12-28 00:31] LABS: Glucose Point of Care 142 mg/dL (70-110)
--- NOTE | 2019-12-28 03:05 | PC.NURSE ---
0305 Patient's heart rate jumped to between 150-190. This nurse awoke patient from her sleep and asked her if she was having any chest pain. Patient denied any chest pain or any pain at all. RT arrived at bedside and EKG completed. Dr. Roman arrived at bedside to stated that patient was in A-fib with RVR. He ordered 5 mgs of Metoprolol IV and and to transfer patient to CSU. 0310 Metoprolol given at this time. Patient belongings packed up. Patient taken to CSU bed 111-2 by bed. Patient's don accompanied patient to CSU.
--- NOTE | 2019-12-28 03:08 | PM.MISC ---
Miscellaneous Note Purpose of Documentation: At 3 PM was called by the nurses as patient had episodes of A. fib with RVR. Patient on EKG and telemetry had A. fib with RVR, heart rates as high as 190s, patient was alert oriented x3, denies chest pain, was slightly short of breath, no lightheadedness, no dizziness. Patient will be given metoprolol milligrams IV once. If that does not help she will receive Cardizem drip. Transfer patient down to the CSU.
[2019-12-28] MEDS: metoprolol tartrate 1 mg/1 mL SDV 5 mL 5 MG IV (03:10)
--- NOTE | 2019-12-28 03:14 | ECG_ITS ---
Measurements Intervals [place] Rate: 163 P: MI: 0 QRS: -50 QRSD: 80 T: 74 QT: 236 QTc: 390 ATRIAL FIBRILLATION WITH RAPID VENTRICULAR RESPONSE MARKED LEFT AXIS DEVIATION [QRS AXIS < -30] POSSIBLE RIGHT VENTRICULAR CONDUCTION DELAY [RSR (QR) IN V1/V2] SEPTAL MYOCARDIAL INFARCTION [40+ ms Q WAVE IN V1/V2], PROBABLY RECENT INTERPRETATION BASED ON A DEFAULT AGE OF 40 YEARS Compared to ECG 12/27/2019 00:35:52 Left-axis deviation now present Myocardial infarct finding now present Sinus rhythm no longer present Short MI interval no longer present Atrial abnormality no longer present Electronically Signed On 12-28-2019 22:23:01 INTERN BRAND by Gabbie Romero M.D. [id number]
--- NOTE | 2019-12-28 03:39 | PC.NURSE ---
Placed patient on telemetry before starting Cardizem drip as ordered and I observed patient was in normal sinus rhythm at a rate of 90. I passed this information on to patients nurse LORENZO Weldon and did not start the drip. Will continue to monitor.
--- NOTE | 2019-12-28 03:52 | PC.NURSE ---
Notified hospitalist regarding patient's heart rate converting from A-fib to sinus rhythm, per Dr. Roman, hold the cardizem drip, and hold the eliquis. Family at the patient's bedside. Call light within reach, patient instructed to notify nursing of any needs. Understanding verbalized. care continued.
--- NOTE | 2019-12-28 03:57 | PC.NURSE ---
received patient from med/surg unit. Patient is alert and oriented to time, place, person, situation. Full assistant merchandise manager per flow sheet, patient denies pain at this time. Family at the patient's bedside. Care continued.
[2019-12-28] MEDS: ipratropium-albuterol 3 mL Neb INHALATION ×4 (04:17→20:42)
[2019-12-28 05:13] LABS: Basophils % 0.1 %; Hematocrit 39.3 % (37.0-47.0); Hemoglobin 12.5 g/dL (11.5-15.3); Lymphocytes # 0.6 10^3/uL (0.8-4.8); Lymphocytes % 6.1 %; Mean Corpuscular HGB Conc 31.8 g/dL (30.0-36.0); Mean Corpuscular Hemoglobin 31.1 pg (28.0-34.0); Mean Corpuscular Volume 97.8 fL (81-99); Mean Platelet Volume 10.1 fL (7.4-10.4); Monocytes # 0.2 10^3/uL (0.2-0.9); Monocytes % 2.4 %; Neutrophils # 9.2 10^3/uL (1.8-7.7); Neutrophils % 91.1 %; Nucleated Red Blood Cells % 0 %; Platelet Count 295 10^3/cmm (130-400); Red Blood Count 4.02 10^6/uL (4.1-5.3); Red Cell Distribution Width 11.5 % (12.1-15.1); White Blood Count 10.1 10^3/uL (4.0-10.0)
[2019-12-28 05:44] LABS: Troponin(5th) Baseline 17 ng/mL (0-10)
[2019-12-28 05:45] LABS: Magnesium 2.1 mg/dL (1.7-2.3); Phosphorus 4.3 mg/dL (2.5-4.5)
[2019-12-28 05:47] LABS: Alanine Aminotransferase 16 U/L (0-33); Albumin Level 3.5 g/dL (3.5-5.2); Alkaline Phosphatase 107 IU/L (35-105); Aspartate Amino Transferase 16 U/L (0-32); Blood Urea Nitrogen 9 mg/dL (8-23); Carbon Dioxide 25 mmol/L (22-29); Chloride 107 mmol/L (98-107); Creatinine Clr Calc Pharmacy 42.8391; Globulin 2.6 g/dL (1.3-4.6); Glucose 98 mg/dL (65-115); Sodium 142 mmol/L (136-145); Thyroid Stimulating Hormone 1.85 uIU/mL (0.27-4.20); Total Bilirubin 0.3 mg/dL (0.15-1.2); Total Protein 6.1 g/dL (6.6-8.7)
[2019-12-28 07:29] LABS: Glucose Point of Care 177 mg/dL (70-110)
[2019-12-28 07:53] LABS: Troponin 5 2HR 20.52 ng/mL (0-10); Troponin 5 2HR Delta 3.52 ABS# (0-10)
[2019-12-28] MEDS: levofloxacin-dextrose 5 % 750 MG/150 ML PREMIX 150 MG IV (08:59)
[2019-12-28] MEDS: aspirin 81 mg EC Tablet PO (09:00)
[2019-12-28] MEDS: apixaban 5 mg Tablet PO ×2 (09:00→17:25)
[2019-12-28] MEDS: amlodipine 5 mg Tablet PO (09:00)
[2019-12-28] MEDS: venlafaxine ER (24HR) 150 mg Capsule PO (09:00)
[2019-12-28] MEDS: metoprolol tartrate 50 mg Tablet PO ×2 (09:00→20:46)
[2019-12-28] MEDS: lisinopril 20 mg Tablet PO (09:00)
[2019-12-28] MEDS: nicotine 7 mg Patch 1 PATCH TRANSDERMA (09:07)
--- NOTE | 2019-12-28 09:14 | ECG_ITS ---
Measurements Intervals [place] Rate: 98 P: 77 PA: 127 QRS: 35 QRSD: 82 T: 76 QT: 315 QTc: 403 SINUS RHYTHM WITH OCCASIONAL SUPRAVENTRICULAR PREMATURE COMPLEXES POSSIBLE RIGHT ATRIAL ENLARGEMENT [0.25mV P WAVE] POSSIBLE LEFT ATRIAL ENLARGEMENT [-0.1mV P WAVE IN V1/V2] POSSIBLE RIGHT VENTRICULAR CONDUCTION DELAY [RSR (QR) IN V1/V2] SEPTAL MYOCARDIAL INFARCTION [40+ ms Q WAVE IN V1/V2], OF INDETERMINATE AGE INTERPRETATION BASED ON A DEFAULT AGE OF 40 YEARS Compared to ECG 12/27/2019 00:35:52 Myocardial infarct finding now present Short PA interval no longer present Electronically Signed On 12-28-2019 22:25:29 CONDEMNATION ENGINEER by Gabbie Romero M.D. [id number]
[2019-12-28 11:20] LABS: Glucose Point of Care 257 mg/dL (70-110)
[2019-12-28] MEDS: predniSONE 20 mg Tablet 40 MG PO (11:50)
[2019-12-28] MEDS: nicotine 14 mg Patch 1 PATCH TRANSDERMA (14:45)
[2019-12-28] MEDS: labetalol 5 mg/mL SDV 20mL 20 MG IVP (15:28)
--- NOTE | 2019-12-28 15:56 | PC.RESP ---
scanner not working/12/28/19 1530 and on.
[2019-12-28 16:42] LABS: Glucose Point of Care 207 mg/dL (70-110)
[2019-12-28] MEDS: labetalol 5 mg/mL SDV 20mL 10 MG IVP (17:48)
[2019-12-28 20:31] LABS: Glucose Point of Care 228 mg/dL (70-110)
[2019-12-28] MEDS: trazodone 100 mg Tablet PO (20:45)
[2019-12-28] MEDS: atorvastatin 40 mg Tablet PO (20:45)
--- NOTE | 2019-12-28 21:11 | P.PN_ITS ---
Subjective Subjective: Interval history: Overnight had an episode of A. fib with RVR. Did not sleep much overnight. This morning somewhat confused and irritable. Family thinks perhaps related to nicotine withdrawal. Vitals/I&O/Wt Last Vital Signs Temp 97.7 F 12/28/19 18:58 Pulse 87 12/28/19 20:53 Resp 20 H 12/28/19 20:53 BP 168/81 12/28/19 18:58 Pulse Ox 92 12/28/19 20:53 12/28/19 12/28/19 12/28/19 06:59 14:59 22:59 Intake Total 100 / 810 270 / 270 Balance 100 / 460 270 / 270 Physical Exam Const: COMMON NORMALS: no apparent distress NUTRITIONAL APPEARANCE: underweight OTHER: Appears tired. HENMT: COMMON NORMALS: oropharynx normal Neck/C-Spine: COMMON NORMALS: no JVD Resp: COMMON NORMALS: normal respiratory effort AUSCULTATION: wheezes and diminished lung sounds Cardio: COMMON NORMALS: no JVD, regular rhythm, S1 normal heart sound, S2 normal heart sound and no murmurs RHYTHM: regular rhythm HEART SOUNDS: S1 normal and S2 normal GI: COMMON NORMALS: normal to inspection, nondistended, normoactive bowel sounds, soft to palpation and non-tender PALPATION: Yes soft Extremity: COMMON NORMALS: no joint enlargement and no pedal edema Neuro: COMMON NORMALS: moves all extremities Skin: COMMON NORMALS: no rashes or lesions noted GENERAL SKIN EXAM: no rashes or lesions noted Data : 12/28/19 03:09 12/28/19 03:09 Micro: Microbiology 12/26/19 18:56 Blood Culture - Preliminary Blood NEGATIVE TO DATE 12/26/19 18:50 Blood Culture - Preliminary Blood NEGATIVE TO DATE A&P Assessment and plan (1) Acute hypercapnic respiratory failure: She has not required further BiPAP support, which is good, however, her course has been complicated by episode of A. fib with RVR. Continues on 2 L nasal cannula. Still wheezing, tight on lung exam. With some irritability and confusion this morning. Requested for nicotine patch for possible withdrawal. She could not sleep last night well. We will increase her dose of trazodone. Per discussion with family at bedside including her daughter, she coughs not infrequently with food and drink. Dysphagia diet. Assess with MBS. Speech therapy evaluation. There was concern for possible CHF, although to me she does not appear fluid overloaded, without signs of fluid overload on imaging. Her BNP may be elevated secondary to chronic pulmonary disease, pulmonary hypertension. Normal EF on TTE. Grade 1 diastolic dysfunction. Switch to oral steroid due to improvement, confusion. Continue antibiotic, breathing treatments. At high risk of delirium. Status: Acute Code(s): J96.02 - Acute respiratory failure with hypercapnia (2) Hypertensive urgency: Continue metoprolol, lisinopril Blood pressure still somewhat elevated. Will change diet to low-sodium. Increase amlodipine to 10 mg. Labetalol PRN Status: Acute Code(s): I16.0 - Hypertensive urgency (3) CO2 narcosis: Improved. Status: Acute Code(s): R06.89 - Other abnormalities of breathing (4) Hypertension: As above Status: Acute Code(s): I10 - Essential (primary) hypertension (5) Hyperlipidemia: Status: Acute Code(s): E78.5 - Hyperlipidemia, unspecified (6) COPD (chronic obstructive pulmonary disease): Status: Acute Code(s): J44.9 - Chronic obstructive pulmonary disease, unspecified (7) Anxiety and depression: Status: Acute Code(s): F41.9 - Anxiety disorder, unspecified; F32.9 - Major depressive disorder, single episode, unspecified (8) Type 2 diabetes mellitus: Low-dose sliding scale Status: Acute Code(s): E11.9 - Type 2 diabetes mellitus without complications (9) Multiple sclerosis: Chronically fatigued, weak from multiple sclerosis, not on active treatment Status: Acute Code(s): G35 - Multiple sclerosis (10) Chest pain: Currently chest pain-free. Minimal troponin elevation. No significant signs of ischemia on EKG. Pending PT evaluation. Monitor recurrence of symptoms. Status: Acute Code(s): R07.9 - Chest pain, unspecified Additional A&P Information Cognitive decline: Memory issues, very mild confusion sometimes reported by the family. Perhaps cognitive decline or early mild dementia. May benefit from subsequent assessment once out of acute episode of illness. Attestations Medical Necessity Statement*: Continue admission for assessment management of severe exacerbation of COPD, complicated by A. fib with RVR, delirium, poorly controlled HTN, cognitive decline. Coding Level of Care Code Acute Breaker Up Machine Operator for Chg Fwd Diagnoses Acute hypercapnic respiratory failure J96.02 Hypertensive urgency I16.0 CO2 narcosis R06.89 Hypertension I10 Hyperlipidemia E78.5 COPD (chronic obstructive pulmonary disease) J44.9 Anxiety and depression F41.9; F32.9 Type 2 diabetes mellitus E11.9 Multiple sclerosis G35 Chest pain R07.9
[2019-12-29] VITALS (14 sets, daily range): BP systolic 130–175; BP diastolic 75–97; PULSE 69–87; RESP 14–20; TEMP 36.4–36.9; O2SAT 91–98
[2019-12-29] MEDS: ipratropium-albuterol 3 mL Neb INHALATION ×4 (00:06→15:39)
--- NOTE | 2019-12-29 00:15 | PC.PHAR ---
Levaquin dosage is adjusted from 750mg IVPB every 24 hours to 750mg IVPB every 48 hours due to creatinine clearance of 42.5.
--- NOTE | 2019-12-29 02:12 | PC.NURSE ---
Spoke with Theresa, regarding the patient and status of how the patient was doing at this time. Requested medication list from family member and family member (Theresa) states, I requested a medication list from [facility] on Sunday12/27/19 not sure why that have not sent that Will update oncoming nurse and have nurse request the medication list
[2019-12-29 05:17] LABS: Basophils % 0.1 %; Hematocrit 41.6 % (37.0-47.0); Hemoglobin 13.1 g/dL (11.5-15.3); Lymphocytes # 1.4 10^3/uL (0.8-4.8); Lymphocytes % 14.2 %; Mean Corpuscular HGB Conc 31.5 g/dL (30.0-36.0); Mean Corpuscular Volume 101.5 fL (81-99); Mean Platelet Volume 9.9 fL (7.4-10.4); Monocytes # 0.6 10^3/uL (0.2-0.9); Monocytes % 6.5 %; Neutrophils # 7.6 10^3/uL (1.8-7.7); Neutrophils % 78.9 %; Nucleated Red Blood Cells % 0 %; Platelet Count 271 10^3/cmm (130-400); Red Cell Distribution Width 11.7 % (12.1-15.1); White Blood Count 9.6 10^3/uL (4.0-10.0)
[2019-12-29 05:49] LABS: Alanine Aminotransferase 10 U/L (0-33); Albumin Level 3.7 g/dL (3.5-5.2); Alkaline Phosphatase 78 IU/L (35-105); Anion Gap 14.5 (5-19); Aspartate Amino Transferase 15 U/L (0-32); Blood Urea Nitrogen 27 mg/dL (8-23); Calcium 9.6 mg/dL (8.5-10.5); Carbon Dioxide 37 mmol/L (22-29); Chloride 84 mmol/L (98-107); Creatinine Clr Calc Pharmacy 42.8391; Globulin 2.5 g/dL (1.3-4.6); Glucose 122 mg/dL (65-115); Magnesium 1.7 mg/dL (1.7-2.3); Phosphorus 3.4 mg/dL (2.5-4.5); Potassium 4.5 mmol/L (3.5-5.1); Sodium 131 mmol/L (136-145); Total Bilirubin 0.4 mg/dL (0.15-1.2); Total Protein 6.2 g/dL (6.6-8.7)
[2019-12-29 06:20] LABS: Glucose Point of Care 97 mg/dL (70-110)
[2019-12-29] MEDS: apixaban 5 mg Tablet PO (08:12)
[2019-12-29] MEDS: amlodipine 10 mg Tablet PO (08:12)
[2019-12-29] MEDS: venlafaxine ER (24HR) 150 mg Capsule PO (08:13)
[2019-12-29] MEDS: nicotine 14 mg Patch 1 PATCH TRANSDERMA (08:13)
[2019-12-29] MEDS: lisinopril 20 mg Tablet PO (08:13)
[2019-12-29] MEDS: metoprolol tartrate 50 mg Tablet PO (08:13)
[2019-12-29] MEDS: aspirin 81 mg EC Tablet PO (08:13)
[2019-12-29] MEDS: predniSONE 20 mg Tablet 40 MG PO (08:13)
--- NOTE | 2019-12-29 09:29 | PC.SOCIAL ---
IMM Update Pg 2 of IMM given and explained to patient who verbalized understanding. Signed, dated, and timed and placed in chart. Copy provided to patient.
--- NOTE | 2019-12-29 11:31 | PC.RESP ---
Patient given information for Smoking Cessation and Pulmonary Rehab.
[2019-12-29 11:32] LABS: Glucose Point of Care 190 mg/dL (70-110)
--- NOTE | 2019-12-29 13:30 | FL_ITS ---
WS: [id number] MODIFIED BARIUM SWALLOW TECHNIQUE: Modified barium swallow with speech therapy using multiple consistencies. FLUOROSCOPY TIME: 2.9 minutes. CLINICAL INFORMATION: Oropharyngeal dysphagia COMPARISON: None. FINDINGS: Multiple consistencies utilized. Small amount of penetration is seen with thin liquid. No paulina aspir ation. Slightly delayed oropharyngeal phase. No difficulties with the barium tablet. Pooling in the v alleculae which cleared with additional swallows. FL/FL barium swallow modifd [id number] IMPRESSION: 1. Small amount of penetration is seen with thin liquid. No paulina aspiration. 2. Slightly delayed oropharyngeal phase with pooling in the vallecula.
--- NOTE | 2019-12-29 18:37 | PM.DCS ---
Discharge Providers Date of Admission: 12/26/19 20:52 Date of Discharge: December 29, 2019 Attending Provider at Admission: Adalberto Roman MD Attending Provider at Discharge: Taras Castro Primary Care Provider: ADAN Adams Diagnoses at Discharge Discharge Diagnosis (1) Acute hypercapnic respiratory failure: Status: Acute (2) Hypertensive urgency: Status: Acute (3) CO2 narcosis: Status: Acute (4) Hypertension: Status: Acute (5) Hyperlipidemia: Status: Acute (6) COPD (chronic obstructive pulmonary disease): Status: Acute (7) Anxiety and depression: Status: Acute (8) Type 2 diabetes mellitus: Status: Acute (9) Multiple sclerosis: Status: Acute (10) Chest pain: Status: Acute Reason for Visit Reason for Visit: Reason For Visit: SOB Hospital Course Hospital Course: 74-year-old pleasant lady with history of COPD, chronic oxygen 2 L by nasal cannula, DM 2, HTN, HLD, mild cognitive decline, was admitted for assessment management due to symptoms of shortness of breath, cough and complaints of fever and chills, hypertension felt to be in severe exacerbation of COPD, with acute hypercapnic respiratory failure, PCO2 84, pH 7.32, PO2 77.2. Required BiPAP support, was treated with IV steroids, antibiotic, initially received Lasix due to concern for possible component of CHF. With hypertensive urgency on presentation, blood pressure 228/107, treated with labetalol IV. Confusion, CO2 narcosis on presentation gradually resolved with BiPAP support, with improvement in PCO2. She is a current smoker of several cigarettes per day, and cessation was discussed on several occasions with her and family. Due to gradual improvement, but also with irritability, mild confusion in the hospital, steroids were transitioned over to oral therapy. She was started on nicotine patch. Her home dose trazodone was resumed. Her recovery was complicated by an episode of A. fib with RVR which resolved after a dose of IV metoprolol. She was started on Eliquis due to elevated risk of CVA. Her heart rates remained well controlled. She was assessed by overnight pulse oximetry, with finding of desaturation of 88 or below for 13 minutes. Due to this, as well as severe hyper Knee on presentation a BiPAP has been ordered for her. She has oxygen at home, and will continue on 2 L as assessed on home evaluation. She also has a nebulizer. TTE was assessed, with normal ejection fraction, grade 1 diastolic dysfunction, as well as suspected pulmonary hypertension. Due to multifactorial respiratory failure, and her COPD will have her follow-up with pulmonology in office. During hospitalization she was also assessed by modified barium swallow evaluation, with finding of small amount of penetration into the larynx, but no paulina aspiration. She was assessed by speech therapy with recommendation for strict aspiration precautions. Physical Exam Const: COMMON NORMALS: no apparent distress NUTRITIONAL APPEARANCE: underweight OTHER: Appears tired. HENMT: COMMON NORMALS: oropharynx normal Neck/C-Spine: COMMON NORMALS: no JVD Resp: COMMON NORMALS: normal respiratory effort AUSCULTATION: wheezes and diminished lung sounds Cardio: COMMON NORMALS: no JVD, regular rhythm, S1 normal heart sound, S2 normal heart sound and no murmurs RHYTHM: regular rhythm HEART SOUNDS: S1 normal and S2 normal GI: COMMON NORMALS: normal to inspection, nondistended, normoactive bowel sounds, soft to palpation and non-tender PALPATION: Yes soft Extremity: COMMON NORMALS: no joint enlargement and no pedal edema Neuro: COMMON NORMALS: moves all extremities Skin: COMMON NORMALS: no rashes or lesions noted GENERAL SKIN EXAM: no rashes or lesions noted Discharge Data Data Completed and Pending: Completed Studies During Hospitalization Category Date Time Status CT chest wo con 7 1250 Routine Cat Scan 12/26/19 22:29 Completed FL barium swallow modifd 44217 Rout ine Exams 12/29/19 13:30 Completed XR chest 1V carmen ble [id number] Urgent Exams 12/26/19 18:37 Completed CV echo complete* [id number] Routine Ultrasound 12/27/19 00:27 Completed Pending at discharge Category Date Time Status Blood Culture Sta t Lab 12/26/19 18:56 Results Labs from last 24 hours 12/29/19 12/29/19 12/29/19 11:21 06:13 04:49 WBC RBC Hgb Hct MCV MCH MCHC RDW Plt Count MPV Neut % (Auto) Lymph % (Auto) [place] % (Auto) Eos % (Auto) Baso % (Auto) Neut # (Auto) Lymph # (Auto) [place] # (Auto) Eos # (Auto) Baso # (Auto) Nucleated RBC % (a uto) Nucleated RBCs # Sodium 131 L Potassium 4.5 Chloride 84 L Carbon Dioxide 37 H Anion Gap 14.5 BUN 27 H Creatinine 0.7 Glucose 122 H POC Glucose 190 97 Calcium 9.6 Phosphorus Magnesium Total Bilirubin 0.4 AST 15 ALT 10 Alkaline Phosphata se 78 Total Protein 6.2 L Albumin 3.7 Globulin 2.5 12/29/19 12/29/19 12/28/19 04:49 04:49 20:27 WBC 9.6 RBC 4.10 Hgb 13.1 Hct 41.6 MCV 101.5 H MCH 32.0 MCHC 31.5 RDW 11.7 L Plt Count 271 MPV 9.9 Neut % (Auto) 78.9 Lymph % (Auto) 14.2 [place] % (Auto) 6.5 Eos % (Auto) 0.0 Baso % (Auto) 0.1 Neut # (Auto) 7.6 Lymph # (Auto) 1.4 [place] # (Auto) 0.6 Eos # (Auto) 0.0 Baso # (Auto) 0.0 Nucleated RBC % (a uto) 0 Nucleated RBCs # 0.0 Sodium Potassium Chloride Carbon Dioxide Anion Gap BUN Creatinine Glucose POC Glucose 228 Calcium Phosphorus 3.4 Magnesium 1.7 Total Bilirubin AST ALT Alkaline Phosphata se Total Protein Albumin Globulin Vitals: Last Vital Signs Temp 98.4 F 12/29/19 16:00 Pulse 86 12/29/19 16:00 Resp 20 H 12/29/19 16:00 BP 169/84 12/29/19 16:00 Pulse Ox 91 12/29/19 15:48 Discharge Plan Discharge Patient Disposition: Home Health Service Condition: Stable Prescriptions: New nicotine 14 mg/24 hr Patch 24 Hour 1 patch transdermal DAILY Qty: 30 RF: 0 amlodipine 10 mg Tablet 10 mg PO DAILY Qty: 30 RF: 0 Levaquin 750 mg tablet 750 mg PO DAILY 5 Days Qty: 5 RF: 0 prednisone 20 mg tablet See Rx Instructions .ROUTE .COMPLEX Qty: 11 RF: 0 Eliquis 5 mg Tablet 5 mg PO BID Qty: 60 RF: 0 Protonix 40 mg tablet,delayed release (DR/EC) 40 mg PO DAILY Qty: 30 RF: 0 Continued lisinopril 20 mg Tablet 20 mg PO BEDTIME RF: 0 Toprol XL 50 mg Tablet Extended Release 24 Hr 50 mg PO DAILY RF: 0 trazodone 150 mg Tablet 150 mg PO BEDTIME RF: 0 venlafaxine 150 mg Capsule,Extended Release 24hr 150 mg PO QAM RF: 0 fluticasone propion-salmeterol 250-50 mcg/dose blister with device 1 inh INHALATION BID RF: 0 albuterol sulfate 2.5 mg /3 mL (0.083 %) solution for nebulization 2.5 mg inhalation Q4H RF: 0 budesonide 0.5 mg/2 mL suspension for nebulization 2 ml inhalation BID RF: 0 metformin 500 mg tablet extended release 24 hr 500 mg PO BID RF: 0 Discharge Orders: Discharge Order (Routine); Ordered 12/29/19 Ordered By: Taras Castro Other Ambulatory Orders: DME: BIPAP (Order) Location: None Selected Ordered By: Taras Castro DME: Oxygen (Order) Location: None Selected Ordered By: Taras Castro Referrals: [facility] [place] Home Care ([facility]) [Outside] Stacey Dickinson, [employer] ADJUSTER-C [Primary Care Provider] - 4-7 days (You have an follow-up Stacey Dickinson on December 31 at 2:40pm. If, you have any questions or need to rechedule. Please, call ) Dariela Cote MD [Physician] - 1 month (You have an follow-up appointment with Dr. Cote at [facility] on January 26 at 8:30am. If, you have nay question or need to reschedule. Please, call ) Discharge Diet: Diabetic and Soft Mechanical Discharge Activity: Oxygen as instructed Patient Instructions: COPD, Prednisone (By mouth), Nicotine (Absorbed through the skin), Amlodipine (By mouth), Levofloxacin (By mouth), Pantoprazole (By mouth), Apixaban (By mouth), How to Stop Smoking (DC), Cigarette Smoking and Your Health (GEN), Hypertension (DC), COPD Stoplight Activity Restrictions/Additional Instructions: Please stop smoking. With small amount of penetration, but no paulina aspiration on barium swallow study. Please maintain strict aspiration precautions, sit upright to eat, take small bites, tuck your chin. Take your time to chew and swallow every bite. BiPAP has been requested, pending approval which may take up to several weeks. Please follow-up with your primary care doctor regarding the machine. Speak with your primary care doctor regarding referral to neurology for assessment by neurology for memory troubles and multiple sclerosis. Continue to monitor your sugars at home 3 times daily, record values to bring to your appointment. Monitor your blood pressure and record values as well. You are on blood thinner medication for protection from stroke risk from atrial fibrillation. Please be cautious due to increased risk of bleeding. Maintain strict fall precautions. Discharge Date/Time: 12/29/19 16:26 Discharge Attestations Time Spent in Discharge Care*: greater than 30 min Quality Metrics Clinical Quality Measures During this hospital stay, did patient experience: None Coding Level of Care Code Acute Steam Hammer Operator for Brig Fwd Diagnoses Acute hypercapnic respiratory failure J96.02 Hypertensive urgency I16.0 CO2 narcosis R06.89 Hypertension I10 Hyperlipidemia E78.5 COPD (chronic obstructive pulmonary disease) J44.9 Anxiety and depression F41.9; F32.9 Type 2 diabetes mellitus E11.9 Multiple sclerosis G35 Chest pain R07.9
== END 2019-12-29 16:26 | disposition home health service (06) | DRG 190 ==
LOC: ER 18:17 → MEDSURG 21:04 → CSU 12-28 03:27
PROVIDERS: Admitting Provider Family Medicine; Emergency Provider Emergency Medicine; Family Provider Nurse Practitioner; PCP Nurse Practitioner; Visit Provider Internal Medicine
DX: J44.1 Chronic obstructive pulmonary disease with (acute) exacerbation (principal); J96.02 Acute respiratory failure with hypercapnia; E87.2 Acidosis; E78.5 Hyperlipidemia, unspecified; F32.9 Major depressive disorder, single episode, unspecified; F41.9 Anxiety disorder, unspecified; I10 Essential (primary) hypertension; E11.9 Type 2 diabetes mellitus without complications; G35 Multiple sclerosis; Z99.81 Dependence on supplemental oxygen; I16.0 Hypertensive urgency; F17.210 Nicotine dependence, cigarettes, uncomplicated; Z79.52 Long term (current) use of systemic steroids; Z79.899 Other long term (current) drug therapy
CPT/HCPCS: 12345; 36415; 36416; 36600; 71045; 71250; 74230; 80053; 80061; 81001; 82805; 82962; 83036; 83735; 83880; 84100; 84145; 84443; 84484; 85025; 87040; 87804; 92611; 93005; 93306; 94640; 94660; 96372; 96375; 97110; 97162; 97165; 97530; 97535; 99283; A9270; J0360; J1650; J1815; J1956; J2060; J2270; J2405; J2920; J2930; J3490; J7512

== ENCOUNTER 2020-04-06 23:24 | Inpatient (IN) | payer MEDICARE, SELFPAY ==
[2020-04-06 23:30] VITALS: BP 94/62; PULSE 127; RESP 30; TEMP 36.6; O2SAT 90; BMI 15.2
--- NOTE | 2020-04-06 23:36 | XR_ITS ---
WS: [id number] CHEST XRAY TECHNIQUE: Portable chest. CLINICAL INFORMATION: sob COMPARISON: December 26, 2019 FINDINGS: Heart: Normal cardiac silhouette. Aortic calcification. Lungs: Advanced chronic emphysematous changes. No acute pulmonary infiltrates. Hyperinflation. Bones: Normal visualized bony structures. XR/XR chest 1V portable [id number] IMPRESSION: Advanced chronic emphysematous changes with hyperinflation. No acute pulmonary infiltrates.
--- NOTE | 2020-04-06 23:36 | ECG_ITS ---
Measurements Intervals [place] Rate: 146 P: HI: 0 QRS: 24 QRSD: 79 T: 73 QT: 281 QTc: 438 ATRIAL FIBRILLATION WITH RAPID VENTRICULAR RESPONSE ABNORMAL RHYTHM ECG Compared to ECG 12/28/2019 09:38:06 Sinus rhythm no longer present Myocardial infarct finding no longer present Electronically Signed On 04-07-2020 15:42:15 CDT by Remigio Stovall M.D. [email or web address]
--- NOTE | 2020-04-06 23:54 | ED_ITS ---
HPI - SOB/Dyspnea General: Chief Complaint: Shortness of Breath/Dyspnea Stated Complaint: ankle swelling, r arm pain Time Seen by Provider: 04/06/20 23:39 Source: patient and family Mode of arrival: ambulatory Limitations: altered mental status History of Present Illness: HPI Narrative: 74-year-old female with a history of COPD the family states his been had increased confusion and they believe she is retaining CO2 is she has done this in the past. Patient's had increased respiratory effort as well. Patient has had no cough or fever. MD elicited complaint: shortness of breath Pertinent past history: COPD Onset (ago): day(s) Context: recent illness Exacerbating factors: nothing Relieving factors: nothing Associated symptoms: Reports palpitations; Deny abdominal pain, fever(s), nausea or vomiting Review of Systems Const: Denies: fever(s), chills, body aches or change in appetite Eyes: Denies: blurry vision or eye discomfort ENMT: Denies: throat pain or dental pain Card: Reports: palpitations Resp: Reports: dyspnea and wheezing GI: Denies: abdominal pain, nausea, vomiting or diarrhea : Denies: dysuria Musc: Denies: neck pain or back pain Skin/Breast: Denies: rash Neuro: Denies: headache(s) Psych: Denies: depression Michi/Lymph: Denies: easy bruising All/Imm: Denies: urticaria PFSH ED PFSH: Medical History Anxiety and depression Chest pain COPD (chronic obstructive pulmonary disease) Hyperlipidemia Hypertension Multiple sclerosis Type 2 diabetes mellitus Surgical History History of appendectomy Family History Other Diabetes Hypertension Social History Smoking and tobacco status: current every day smoker cigarettes [ Other cigaret te details: Hx of 1 PDD x 60 Years ] Alcohol intake: never Lives independently: Yes Household members: spouse Marital status: Current occupational status: unemployed History of recent travel: No Current gender identity: Female Physical Exam Const: COMMON NORMALS: healthy appearing EXAM LIMITATIONS: altered mental status GENERAL APPEARANCE: in distress and ill appearing HENMT: COMMON NORMALS: normocephalic and atraumatic HEAD & SCALP: normocephalic and atraumatic Eye: COMMON NORMALS: Equal, round and reactive pupils present and EOMs intact bilaterally PUPIL: Yes Equal, round and reactive pupils present Neck/C-Spine: COMMON NORMALS: full ROM and supple Chest: COMMONS NORMALS: normal inspection of the chest and normal palpation of entire chest wall Resp: EFFORT & INSPECTION: Yes tachypneic and Yes uses accessory muscles AUSCULTATION: wheezes Cardio: COMMON NORMALS: regular rhythm and No murmurs present (Cardio) RATE: tachycardic RHYTHM: regular rhythm GI: COMMON NORMALS: Normal to inspection, nondistended, normoactive bowel sounds present, Soft to palpation, non-tender and no masses PALPATION: Yes Soft to palpation Extremity: COMMON NORMALS: normal to inspection and full ROM Neuro: COMMON NORMALS: moves all extremities and no focal motor deficits Psych: COMMON NORMALS: mental status grossly normal, Normal thought process present and cooperative THOUGHT PROCESS: Normal thought process present Skin: COMMON NORMALS: no rashes or lesions noted and no wounds GENERAL SKIN EXAM: no rashes or lesions noted Course Vital Signs: Vital signs: Vital Signs Temperature 97.9 F 04/06/20 23:30 Pulse Rate 102 H 04/07/20 00:56 Respiratory Rate 18 04/07/20 00:37 Blood Pressure 117/78 04/07/20 00:37 Pulse Oximetry 98 04/07/20 00:56 MDM - SOB/Dyspnea MDM Narrative: Medical decision making narrative: Deidra presents here with a COPD exacerbation. This is likely causing her confusion and she is improving on BiPAP. She is anxious on BiPAP and given Ativan here. Patient is also in A. fib with RVR and started on a Cardizem drip. I spoke to Dr. Girard of the hospitalist and will admit to the CSU. Lab Data: Labs: Lab Results 04/06/20 04/06/20 04/06/20 Range/Units 23:53 23:53 23:53 WBC 15.9 H (4.0-10.0) 10^3/ uL RBC 3.83 L (4.1-5.3) 10^6/u L Hgb 12.2 (11.5-15.3) g/dL Hct 39.5 (37.0-47.0) % MCV 103.1 H (81-99) fL MCH 31.9 (28.0-34.0) pg MCHC 30.9 (30.0-36.0) g/dL RDW 11.9 L (12.1-15.1) % Plt Count 279 (130-400) 10^3/c mm MPV 10.5 H (7.4-10.4) fL Neut % (Auto) 86.2 % Lymph % (Auto) 6.9 % [place] % (Auto) 6.3 % Eos % (Auto) 0.2 % Baso % (Auto) 0.1 % Neut # (Auto) 13.7 H (1.8-7.7) 10^3/u L Lymph # (Auto) 1.1 (0.8-4.8) 10^3/u L [place] # (Auto) 1.0 H (0.2-0.9) 10^3/u L Eos # (Auto) 0.0 (0.0-0.8) 10^3/u L Baso # (Auto) 0.0 (0.0-0.1) 10^3/u L Nucleated RBC % (a uto) 0 % Nucleated RBCs # 0.0 /100WBC Sodium 128 L (136-145) mmol/L Potassium 4.5 (3.5-5.1) mmol/L Chloride 80 L (98-107) mmol/L Carbon Dioxide 41 H (22-29) mmol/L Anion Gap 11.5 (5-19) BUN 15 (8-23) mg/dL Creatinine 0.6 (0.5-0.9) mg/dL Glucose 156 H (65-115) mg/dL Calculated Osmolal ity 265 L (285-295) mOsm/k g Lactic Acid 2.6 H (0.5-2.2) mmol/L Calcium 8.6 (8.5-10.5) mg/dL Total Bilirubin 0.2 (0.15-1.2) mg/dL AST 17 (0-32) U/L ALT 22 (0-33) U/L Alkaline Phosphata se 80 (35-105) IU/L Troponin T Baselin e (0-10) ng/mL NT-Pro-B Natriuret Pep 1255 H (0-450) pg/mL Total Protein 6.0 L (6.6-8.7) g/dL Albumin 4.1 (3.5-5.2) g/dL Globulin 1.9 (1.3-4.6) g/dL 04/07/20 Range/Units 01:01 WBC (4.0-10.0) 10^3/ uL RBC (4.1-5.3) 10^6/u L Hgb (11.5-15.3) g/dL Hct (37.0-47.0) % MCV (81-99) fL MCH (28.0-34.0) pg MCHC (30.0-36.0) g/dL RDW (12.1-15.1) % Plt Count (130-400) 10^3/c mm MPV (7.4-10.4) fL Neut % (Auto) % Lymph % (Auto) % [place] % (Auto) % Eos % (Auto) % Baso % (Auto) % Neut # (Auto) (1.8-7.7) 10^3/u L Lymph # (Auto) (0.8-4.8) 10^3/u L [place] # (Auto) (0.2-0.9) 10^3/u L Eos # (Auto) (0.0-0.8) 10^3/u L Baso # (Auto) (0.0-0.1) 10^3/u L Nucleated RBC % (a uto) % Nucleated RBCs # /100WBC Sodium (136-145) mmol/L Potassium (3.5-5.1) mmol/L Chloride (98-107) mmol/L Carbon Dioxide (22-29) mmol/L Anion Gap (5-19) BUN (8-23) mg/dL Creatinine (0.5-0.9) mg/dL Glucose (65-115) mg/dL Calculated Osmolal ity (285-295) mOsm/k g Lactic Acid (0.5-2.2) mmol/L Calcium (8.5-10.5) mg/dL Total Bilirubin (0.15-1.2) mg/dL AST (0-32) U/L ALT (0-33) U/L Alkaline Phosphata se (35-105) IU/L Troponin T Baselin e 16 H (0-10) ng/mL NT-Pro-B Natriuret Pep (0-450) pg/mL Total Protein (6.6-8.7) g/dL Albumin (3.5-5.2) g/dL Globulin (1.3-4.6) g/dL EKG Data^: EKG 1: Attestation: I personally reviewed and interpreted this EKG as follows: EKG Interpretation Date: 04/07/20 EKG interpretation time: 00:07 Interpretation: afib with rvr hr [address] or t wave abnormalities qrs 79 qtc 365 Discharge Plan Discharge Patient Disposition: Admitted As Inpatient Clinical Impression: COPD (chronic obstructive pulmonary disease) Qualifiers: COPD type: COPD with acute exacerbation Qualified Code(s): J44.1 - Chronic obstructive pulmonary disease with (acute) exacerbation Atrial fibrillation Qualifiers: Atrial fibrillation type: unspecified Qualified Code(s): I48.91 - Unspecified atrial fibrillation Condition: Stable Referrals: Jeferson Ardon CONVERTER SKIMMER [Primary Care Provider] - Coding Level of Care Code ED Director Of Professional Services for Chg Fwd Exam Comprehensive
[2020-04-07] VITALS (49 sets, daily range): BP systolic 98–160; BP diastolic 62–84; PULSE 63–174; RESP 10–25; TEMP 36.4–36.8; O2SAT 92–100
[2020-04-07] LABS: Basophils % 0.1 %; Eosinophils % 0.2 %; Hematocrit 39.5 % (37.0-47.0); Hemoglobin 12.2 g/dL (11.5-15.3); Lymphocytes # 1.1 10^3/uL (0.8-4.8); Lymphocytes % 6.9 %; Mean Corpuscular HGB Conc 30.9 g/dL (30.0-36.0); Mean Corpuscular Hemoglobin 31.9 pg (28.0-34.0); Mean Corpuscular Volume 103.1 fL (81-99); Mean Platelet Volume 10.5 fL (7.4-10.4); Monocytes % 6.3 %; Neutrophils # 13.7 10^3/uL (1.8-7.7); Neutrophils % 86.2 %; Nucleated Red Blood Cells % 0 %; Platelet Count 279 10^3/cmm (130-400); Red Blood Count 3.83 10^6/uL (4.1-5.3); Red Cell Distribution Width 11.9 % (12.1-15.1); White Blood Count 15.9 10^3/uL (4.0-10.0)
[2020-04-07] MEDS: sodium chloride 0.9% 1,000 ML 999 ML IV (00:18)
[2020-04-07 00:23] LABS: Lactic Sepsis W/Reflex 2.6 mmol/L (0.5-2.2)
[2020-04-07 00:33] LABS: Alanine Aminotransferase 22 U/L (0-33); Albumin Level 4.1 g/dL (3.5-5.2); Alkaline Phosphatase 80 IU/L (35-105); Anion Gap 11.5 (5-19); Aspartate Amino Transferase 17 U/L (0-32); Blood Urea Nitrogen 15 mg/dL (8-23); Calcium 8.6 mg/dL (8.5-10.5); Chloride 80 mmol/L (98-107); Creatinine Clr Calc Pharmacy 42.8391; Globulin 1.9 g/dL (1.3-4.6); Glucose 156 mg/dL (65-115); NT Pro B Type Natriuretic Pept 1255 pg/mL (0-450); Osmolality Calculated 265 mOsm/kg (285-295); Potassium 4.5 mmol/L (3.5-5.1); Sodium 128 mmol/L (136-145); Total Bilirubin 0.2 mg/dL (0.15-1.2)
[2020-04-07 00:44] LABS: Carbon Dioxide 41 mmol/L (22-29)
[2020-04-07 01:20] LABS: Troponin(5th) Baseline 16 ng/mL (0-10)
[2020-04-07 01:41] LABS: Reflex Lactate Order REFLEX LACTIC ORDERD
[2020-04-07] MEDS: LORazepam 2 mg/mL INJ 1 mL 0.5 MG IVP (01:48)
--- NOTE | 2020-04-07 02:42 | P.HP_ITS ---
Providers/Chief Complaint Admitting Physician: Heidy Man MD Primary Care Provider: Jeferson Ardon APN Chief Complaint: COPD EXACERBATION; AFIB W/RVR History of Present Illness Deidra De La Torre is a 74 year old female with history of COPD, chronic oxygen 2 L by nasal cannula, DM 2, HTN, HLD, mild cognitive decline, with last admission 12/2019 with acute exacerbation of COPD and recommended Bipap on discharge based on results of overnight oximetry testing, however it is unclear if she has been using this consistently. Patient had experienced significant improvement after she left the hospital however over the past couple of months her mental status has been progressively getting worse. On 04/01, she was noted to be more lethargic and she was taken to her primary care doctor's office where she received steroid and given a prescription for antibiotic (does not know name). She also c/o orthopnea and increased LE swelling at the time. She recently established care with pulmnology on 04/01 and was stated on lasix, pulmicort, formterol and revefenacin. She is additionally continuing on a Prednisone taper. She presented to Er today with c/o increased confusion and increased respiratory effort. Due to concern for c02 narcosis, she was brought to ER by family. Unable to see ABG in the system at this time, however per verbal report CO2 was at 69 with normal pH. She was placed on BiPap which significantly improved her work of breathing and improved her mentation. also noted to have A fib with RVR with Hr 146/min for which she received cardizem push 15mg and was stared on cardizem infusion. No h/o fever or worsening cough. CXR shows barrel chest with severe emphysema an d atelactasis in the LLL per my read. Review of Systems General: Reports: 10 or more systems reviewed and unremarkable except in HPI and below Const: Denies: fever(s), chills or body aches Eyes: Denies: change in vision, blurry vision or photophobia ENMT: Reports: hoarseness; Denies: throat pain, enlarged tonsils, odynophagia or nasal congestion Card: Denies: chest pain, palpitations, irregular heart rhythm, edema, swelling of feet/ankles, lightheadedness, pre-syncope, dyspnea on exertion or orthopnea Resp: Denies: dyspnea, productive cough, non-productive cough, wheezing, stridor, pain on inspiration, change in phlegm color, hemoptysis or chest congestion GI: Denies: abdominal pain, nausea, vomiting, hematemesis, coffee ground em esis, dysphagia, heartburn, diarrhea, constipation, GI cramping, change in stool character, hematochezia or melena : Denies: flank pain, difficulty voiding, dysuria, urinary frequency, urinary urgency, urinary hesitancy or hematuria Musc: Denies: neck pain, back pain, extremity pain, joint swelling, joint warmth or deformity Neuro: Denies: headache(s), numbness in extremities, weakness in extremities, sensory changes, difficulty walking, frequent falls, dizziness, vertigo, behavioral changes, Slurred speech present or seizure-like activity Psych: Denies: anxiety, depression, suicidal ideation or homicidal ideation Endo: Denies: polyuria, polydipsia, tired all the time, cold intolerance or hot flashes Michi/Lymph: Denies: easy bruising or easy bleeding Medications/Allergies Home Medications Medication Instructions Recorded Confirmed Last Taken Type Toprol XL 50 mg PO DAILY 12/29/19 12/29/19 Unknown History albuterol sulfate 2.5 mg INHALATION Q4H 12/29/19 12/29/19 Unknown History amlodipine 10 mg PO DAILY #30 tab 12/29/19 Unknown Rx apixaban [Eliquis] 5 mg PO BID #60 tab 12/29/19 Unknown Rx fluticasone propion-salmeterol 1 inh INHALATION BID 12/29/19 12/29/19 Unknown History lisinopril 20 mg PO BEDTIME 12/29/19 12/29/19 Unknown History metformin 500 mg PO BID 12/29/19 12/29/19 Unknown History nicotine 1 patch TRANSDERMAL DAILY #30 ea 12/29/19 Unknown Rx pantoprazole [Protonix] 40 mg PO DAILY #30 tab 12/29/19 Unknown Rx prednisone See Rx Instructions .ROUTE 12/29/19 Unknown Rx .COMPLEX #11 tab trazodone 150 mg PO BEDTIME 12/29/19 12/29/19 Unknown History venlafaxine 150 mg PO QAM 12/29/19 12/29/19 Unknown History budesonide 0.5 mg/2 mL suspension 0.5 mg INHALATION BID 90 Days #360 04/01/20 04/01/20 Unknown Rx for nebulization ml formoterol fumarate 20 mcg/2 mL 2 ml INHALATION Q12H 90 Days #120 04/01/20 04/01/20 Unknown Rx solution for nebulization ml furosemide 20 mg tablet 20 mg PO DAILY 30 Days #30 tab 04/01/20 04/01/20 Unknown Rx revefenacin 175 mcg/3 mL solution 175 mcg INHALATION DAILY 90 Days 04/01/20 04/01/20 Unknown Rx for nebulization #90 ml Allergies Allergy/AdvReac Type Severity Reaction Status Date / Time Penicillins Allergy Intermediate Unknown Verified 04/01/20 16:23 PFSH Acute PFSH: Medical History Anxiety and depression Chest pain COPD (chronic obstructive pulmonary disease) Hyperlipidemia Hypertension Multiple sclerosis Type 2 diabetes mellitus Surgical History History of appendectomy Family History Other Diabetes Hypertension Social History Smoking and tobacco status: current every day smoker cigarettes [ Other cigarette details: Hx of 1 PDD x 60 Years ] Alcohol intake: never Lives independently: Yes Household members: spouse Marital status: Current occupational status: unemployed History of recent travel: No Current gender identity: Female Vitals/I&O/Wt Last Vital Signs Temp 97.9 F 04/06/20 23:30 Pulse 112 H 04/07/20 02:03 Resp 18 04/07/20 02:03 BP 98/65 04/07/20 02:03 Pulse Ox 100 04/07/20 02:03 04/06/20 04/06/20 04/07/20 14:59 22:59 06:59 Intake Total Balance Weight last 48 hrs Weight 45.359 kg Physical Exam Narrative: EXAM NARRATIVE: GEN: Awake, alert and oriented, no acute distress HEENT: on Bipap at time of evaluation, tolerating well CVS: S1S2 RS: B/L coarse breath sounds with scattered wheezing Abd: Soft, nt/nd , bs+ 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 Ext: mild LE pitting edema Data : 04/06/20 23:53 04/06/20 23:53 A&P Assessment and plan (1) Atrial fibrillation: Status: Acute Qualifiers: Atrial fibrillation type: unspecified Qualified Code(s): I48.91 - Unspecified atrial fibrillation (2) Chronic respiratory failure with hypoxia and hypercapnia: Status: Acute (3) COPD (chronic obstructive pulmonary disease): Status: Acute Qualifiers: COPD type: COPD with acute exacerbation Qualified Code(s): J44.1 - Chronic obstructive pulmonary disease with (acute) exacerbation (4) Nicotine abuse: Status: Acute (5) Hyponatremia: Status: Acute Additional A&P Information Admit to [facility] 1. COPD exacerbation, unclear if consistently using Bipap at home. - Duonebs q4h, budesonide inhalation q12h - continue prednisone at 40mg po qd - Recently reports being prescribed a course of antibiotics as outpatient, however does not recall name. No gross infiltrate per my read on CXR, appears to have atelactasis LLL. Awaiting radiological interpretation. - Doxycycline 100mg BID for now for COPD excaerbation - Leukocytosis may be related to recent steroid use - Bipap continuous overnight - check ABG in am 2. A fib with RVR s/p cardizem 15mg iv x 1, started on cardizem infusion 3. Moderate pulmonary hypertension and gr 1 diastolic dysfunction per recent echocardiogram. CHF currently likely worsened by RVR Lasix 20mg IVP now 3. Nicotine abuse 4. hyponatremia, currently 128, on last discharge was at 131, appears to be chronic Dvt ppx: eliquis Attestations Medical Necessity Statement*: anticipate >2midnight admission for management of hypercapneic respiratory failure and rate control Coding Level of Care Code Acute Music Orchestrator for Chg Fwd Diagnoses Atrial fibrillation I48.91 Atrial fibrillation type: unspecified Chronic respiratory failure with hypoxia and hypercapnia J96.11; J96.12 COPD (chronic obstructive pulmonary disease) J44.1 COPD type: COPD with acute exacerbation Nicotine abuse Z72.0 Hyponatremia E87.1
--- NOTE | 2020-04-07 02:54 | ECG_ITS ---
Measurements Intervals [place] Rate: 112 P: ID: 0 QRS: 44 QRSD: 78 T: 82 QT: 305 QTc: 417 ATRIAL FIBRILLATION WITH RAPID VENTRICULAR RESPONSE ABNORMAL RHYTHM ECG Compared to ECG 12/28/2019 09:38:06 Sinus rhythm no longer present Myocardial infarct finding no longer present Electronically Signed On 04-07-2020 15:45:11 CDT by Remigio Stovall M.D. [email or web address]
[2020-04-07 03:06] LABS: Lactic Acid level (Lactate) 2.1 mmol/L (0.5-2.2)
[2020-04-07 03:07] LABS: Troponin 5 2HR 15.91 ng/mL (0-10)
[2020-04-07 03:08] LABS: Troponin 5 2HR Delta -0.09 ABS# (0-10)
[2020-04-07] MEDS: ipratropium-albuterol 3 mL Neb INHALATION ×6 (03:45→23:47)
[2020-04-07] MEDS: venlafaxine ER (24HR) 150 mg Capsule PO (04:54)
[2020-04-07] MEDS: metoprolol succinate ER (24 HR) 50 mg Tablet PO (04:54)
[2020-04-07] MEDS: FUROsemide 10 mg/mL SDV 2mL 20 MG IVP (04:54)
--- NOTE | 2020-04-07 05:46 | PC.NURSE ---
Patient has bruise to right upper lip and right lateral hip from fall at home per patient description.
--- NOTE | 2020-04-07 06:06 | PC.NURSE ---
Patient converted to NSR. Cardizem gtt stopped at this time. Informed Dr Man, no new orders received at this time.
[2020-04-07 06:38] LABS: ABG PCO2 69.6 mmHg (35-45); ABG PH Result 7.39 (7.35-7.45); Blood Gas Allen Test pos; HCO3 ABG 41.9 mmol/L (22-26); Oxygen Device nc; PO2 ABG 53.8 mmHg (80.0-100.0)
[2020-04-07 06:39] LABS: Arterial Blood Gas Hematocrit 35.6 % (37-47); Total Hemoglobin 11.6 g/dL (12-16)
[2020-04-07 07:29] LABS: Alanine Aminotransferase 20 U/L (0-33); Albumin Level 3.6 g/dL (3.5-5.2); Alkaline Phosphatase 69 IU/L (35-105); Anion Gap 14.1 (5-19); Aspartate Amino Transferase 14 U/L (0-32); Blood Urea Nitrogen 17 mg/dL (8-23); Calcium 8.8 mg/dL (8.5-10.5); Carbon Dioxide 36 mmol/L (22-29); Chloride 82 mmol/L (98-107); Glucose 275 mg/dL (65-115); Osmolality Calculated 270 mOsm/kg (285-295); Potassium 5.1 mmol/L (3.5-5.1); Sodium 127 mmol/L (136-145); Total Bilirubin 0.3 mg/dL (0.15-1.2); Total Protein 5.6 g/dL (6.6-8.7)
[2020-04-07 07:32] LABS: Troponin 5 6HR 16.67 ng/mL (0-10); Troponin 5 6HR Delta 0.67 ng/L (0-12)
[2020-04-07 07:39] LABS: Procalcitonin 0.17 ng/mL (0-0.5)
[2020-04-07] MEDS: predniSONE 20 mg Tablet 40 MG PO (08:35)
[2020-04-07] MEDS: FUROsemide 20 mg Tablet PO (08:35)
[2020-04-07] MEDS: pantoprazole DR 40 mg Tablet PO (08:35)
[2020-04-07] MEDS: doxycycline 100 mg Tablet PO ×2 (08:35→17:53)
[2020-04-07] MEDS: apixaban 5 mg Tablet PO ×2 (08:35→17:53)
--- NOTE | 2020-04-07 09:37 | PC.CHAP ---
Pastoral Care Encounter/Spiritual Assessment Type of Contact [] Declined geological sample tester visit [] Patient/Family/Request visit [] Outpatient visit [] Follow-up visit [] Physician referral [] Code/Alert [x] Routine visit [] Staff referral [] Actively dying [] Patient sleeping [] Family support [] [] Out of room [] Palliative care [] [] Receiving care in room [] Pre-surgical visit [] Trauma [] Long length of stay [] ICU visit [] Other: Relational/Emotional Strength [] Patient feels connected with others/family/visitors/staff [] Distress [] Loneliness/isolation [] Abandonment Spirituality of Patient [] Person of Tiera [] Attends Presybeterian of their Tiera [] Believes in Prayer [] Reads Bible or Scientology materials [] There are Spiritual issues to be addressed Stereo Equipment Repairer Interventions [x] Prayer [] Active listening [] Non-anxious presence [] Spiritual/emotional support [] Crisis/trauma care [] Spiritual counseling [] Bereavement support [] Provided bereavement packet [] Provided Bible/devotional materials [] Provided toy/stuffed animal, coloring book to patient or family member [] Provided Communion [] Anointing/[place] [] Salvation [x] Completed spiritual assessment [] Other: Impact on Illness or Injury [] Angry [] Fearful [] Anxious [] Often cries [] Exhaustion [] Unable to work [] Unable to attend denominational [] Unable to walk/stand [] Unable to read [] Unable to drive [] Unable to eat/drink [] Unable to sleep [] Unable to be with family [] Patient intubated [] Other: Summary Patient totally unhappy with breathing device. Nurse assisting with patient, explaining the necessity of the device. Time spent with patient 5 min
--- NOTE | 2020-04-07 09:39 | PC.NURSE ---
PATIENT REQUIRES A LOT OF REASSURING ABOUT HER CARE. SHE IS CONFUSED MOST OF THE TIME BUT REDIRECTS EASILY. SHE HAS A HIGH LEVEL OF ANXIETY WHICH DOES NOT HELP HER CONFUSION. PATIENT IS WEAK AND A FALL RISK SO SHE WILL BE MONITORED CLOSELY AND BED CHECK IS TURNED ON. WHEN AVAILABLE, PATIENT WILL BE MOVED CLOSER TO THE NURSES STATION.
[2020-04-07] MEDS: budesonide 0.5 mg/2 mL Neb INHALATION ×2 (09:45→20:29)
[2020-04-07] MEDS: ALPRAZolam 0.25 mg Tablet PO ×2 (10:20→13:57)
--- NOTE | 2020-04-07 11:11 | PM.PN ---
Subjective Subjective: Interval history: During my visit she is wearing her BiPAP mask. Overall she seems appropriate, but at the same time noted to have quite a bit of impulsive behavior. Getting up and out of bed suddenly, screaming when she is needing to urinate, or unable to open her milk glass. When asked about how she is feeling she does state that she is doing better. She says that her breathing is overall comfortable on BiPAP. She says that she does not always wear BiPAP at home, although at the same time we are finding out that her BiPAP had been ordered and this pending in [facility], so I am not sure whether she is reliable with regards to this history. Vitals/I&O/Wt Last Vital Signs Temp 97.8 F 04/07/20 07:10 Pulse 63 04/07/20 07:10 Resp 24 H 04/07/20 07:10 BP 138/63 04/07/20 07:10 Pulse Ox 100 04/07/20 07:10 04/06/20 04/07/20 04/07/20 22:59 06:59 14:59 Intake Total 38.333 / 38.333 240 / 240 Balance 38.333 / 38.333 240 / 240 Weight last 48 hrs Weight 51.347 kg Weight 45.359 kg Physical Exam Const: COMMON NORMALS: no acute distress and patient oriented x3 OTHER: Hard of hearing. Impulsive. HENMT: COMMON NORMALS: oropharynx normal Neck/C-Spine: COMMON NORMALS: no JVD Resp: AUSCULTATION: diminished lung sounds Cardio: COMMON NORMALS: no JVD, regular rhythm, S1 normal heart sound present, S2 normal heart sound present and No murmurs present (Cardio) RHYTHM: regular rhythm HEART SOUNDS: S1 normal heart sound present and S2 normal heart sound present GI: COMMON NORMALS: Normal to inspection, nondistended, normoactive bowel sounds present, Soft to palpation and non-tender PALPATION: Yes Soft to palpation Extremity: COMMON NORMALS: no joint enlargement and no pedal edema Neuro: COMMON NORMALS: patient oriented x3 and moves all extremities Skin: COMMON NORMALS: no rashes or lesions noted GENERAL SKIN EXAM: no rashes or lesions noted Data : 04/06/20 23:53 04/07/20 07:01 A&P Assessment and plan (1) COPD (chronic obstructive pulmonary disease): COPD with exacerbation. Bilateral poor air entry. Intermittent cough. On BiPAP this morning. She subjectively states she is feeling better. At home she herself states is not always adherent to BiPAP, and says that the mask is not comfortable. At the same time I am finding out that there is a BiPAP that was ordered by pulmonology for her, and is actually pending and [facility], so I am not sure whether she actually has a machine at home or not. Not sure if maybe she is talking about nebulizer. At this time continue steroid, breathing treatments, antibiotic. Care coordination will look into more regarding her BiPAP, will try to make sure that she has it available prior to discharge. With concern of some deconditioning, impulsive behavior, not consistent adherence with BiPAP, PT and OT evaluations have been requested. Discharge to [facility] facility prior to return home was offered, however, it appears family declined to pursue this route. Status: Acute Qualifiers: COPD type: COPD with acute exacerbation Qualified Code(s): J44.1 - Chronic obstructive pulmonary disease with (acute) exacerbation (2) Atrial fibrillation: She has converted to sinus rhythm around 5:45 this morning. Several 4-second pauses at the time when she was converting. Currently sinus rhythm in the 60s. At this time she is resumed on daily 50 mg metoprolol succinate. Cont Eliquis. Continue treatment of COPD exacerbation as above. Check magnesium, TSH. Status: Acute Qualifiers: Atrial fibrillation type: unspecified Qualified Code(s): I48.91 - Unspecified atrial fibrillation (3) Chronic respiratory failure with hypoxia and hypercapnia: Continue nebulizer treatments, budesonide as recommended by pulmonology. Continue revefenacin if someone is able to bring in for her. Arrangements for home ventilator. Status: Acute (4) Nicotine abuse: continue to encourage cessation. Status: Acute (5) Hyponatremia: Suspect secondary to acute on chronic respiratory failure. Continue treatment of underlying condition. Monitor sodium. Liberalize diet. Status: Acute Additional A&P Information Likely pulmonary hypertension: Continue follow-up with pulmonology Elevated BNP: Grade 1 diastolic dysfunction noted on prior echo. Clearly minimal if any fluid overload, though does appear to have some JVD distention. Possibly in relation to the above. At this time continue oral Lasix. Elevated BNP likely also related to her pulmonary hypertension, chronic lung disease and arrhythmia on presentation. Leukocytosis: possibly related to respiratory failure/COPD exacerbation or stress related. Procalcitonin negative. Attestations Medical Necessity Statement*: Continue admission for assessment of management of acute on chronic respiratory failure with hypoxia, hypercapnia, COPD exacerbation. Optimization of medical management of A. fib with RVR. Coding Level of Care Code Acute Information Resources Manager for [facility] Fwd Diagnoses COPD (chronic obstructive pulmonary disease) J44.1 COPD type: COPD with acute exacerbation Atrial fibrillation I48.91 Atrial fibrillation type: unspecified Chronic respiratory failure with hypoxia and hypercapnia J96.11; J96.12 Nicotine abuse Z72.0 Hyponatremia E87.1
[2020-04-07 13:00] LABS: Magnesium 1.6 mg/dL (1.7-2.3); Thyroid Stimulating Hormone 0.63 uIU/mL (0.27-4.20)
[2020-04-07] MEDS: nicotine 14 mg Patch 1 PATCH TRANSDERMA (13:07)
--- NOTE | 2020-04-07 18:57 | PC.NURSE ---
Patient yelling in room stating I want a cigarette. Patient has nicotine patch in place. Patient also refusing to talk with family when they call. Patient also yelling out I am going to tonight. Patient is confused. Day RN has spoke with Theresa and Mackenzie, patient's daughters and explained patient condition to them. Night RN provided reassurance to patient and patient is re-directable at times. No other distress observed. Patient HR remains controlled and NSR. Will continue to monitor.
--- NOTE | 2020-04-07 19:29 | PC.NURSE ---
Patient wanting to speak with her daughters now. RN called both Theresa and Mackenzie allowing patient to speak with both. Patient is more calm and cooperative at this time. Will continue to monitor.
[2020-04-07] MEDS: trazodone 150 mg Tablet PO (20:32)
[2020-04-07] MEDS: lisinopril 20 mg Tablet PO (20:32)
--- NOTE | 2020-04-07 20:40 | PC.NURSE ---
Patient resting with eyes closed. RT in and place Bipap.
[2020-04-07] MEDS: ALPRAZolam 0.5 mg Tablet PO (21:10)
[2020-04-08] VITALS (44 sets, daily range): BP systolic 78–124; BP diastolic 53–73; PULSE 64–156; RESP 13–26; TEMP 36.2–36.9; O2SAT 92–100
--- NOTE | 2020-04-08 02:18 | PC.NURSE ---
Patient had linens changed and had bed bath with bath wipes due to incontinence. Patient resting with eye closed on bipap. Patient kept pulling at covers during change c/o feeling cold. Patient repositioned for comfort and covers replaced. Patient expressed thanks. Patient converted back to afib/flutter at this time as well with HR mid 80s to mid 140s. Patient denies any discomforts. No distress observed. Informed Dr Man of patient condition and received instruction to continue to monitor for now. Will keep Dr informed of patient condition.
--- NOTE | 2020-04-08 03:02 | PC.NURSE ---
Patient current HR 126 with BP of 81/59. HR is going as fast at 145 to 150 at times. Re-started cardizem drip per Dr Man orders. Patient resting with eyes closed and bipap in place. Patient positioned with legs curled up. Attempted to straighten patient for comfort, patient refuses and returns to her comfortable position. Skin is cool to touch.
[2020-04-08] MEDS: ipratropium-albuterol 3 mL Neb INHALATION ×3 (03:18→19:28)
--- NOTE | 2020-04-08 03:26 | PC.NURSE ---
Patient BP at 107/73 with cardizem running at 10ml/hr. Repositioned patient for comfort. Patient c/o feeling cold. Replaced blankets and increased temperature on heat in room.
[2020-04-08 03:48] LABS: Hematocrit 29.6 % (37.0-47.0); Hemoglobin 9.3 g/dL (11.5-15.3); Lymphocytes # 0.5 10^3/uL (0.8-4.8); Lymphocytes % 6.6 %; Mean Corpuscular HGB Conc 31.4 g/dL (30.0-36.0); Mean Corpuscular Hemoglobin 31.7 pg (28.0-34.0); Mean Platelet Volume 11.1 fL (7.4-10.4); Monocytes # 0.5 10^3/uL (0.2-0.9); Monocytes % 6.6 %; Neutrophils # 6.6 10^3/uL (1.8-7.7); Neutrophils % 86.5 %; Nucleated Red Blood Cells % 0 %; Platelet Count 190 10^3/cmm (130-400); Red Blood Count 2.93 10^6/uL (4.1-5.3); Red Cell Distribution Width 11.9 % (12.1-15.1); White Blood Count 7.6 10^3/uL (4.0-10.0)
[2020-04-08 04:09] LABS: Alanine Aminotransferase 15 U/L (0-33); Albumin Level 3.3 g/dL (3.5-5.2); Alkaline Phosphatase 57 IU/L (35-105); Anion Gap 7.9 (5-19); Aspartate Amino Transferase 10 U/L (0-32); Blood Urea Nitrogen 20 mg/dL (8-23); Calcium 9.1 mg/dL (8.5-10.5); Chloride 79 mmol/L (98-107); Globulin 1.9 g/dL (1.3-4.6); Glucose 248 mg/dL (65-115); Osmolality Calculated 269 mOsm/kg (285-295); Potassium 3.9 mmol/L (3.5-5.1); Sodium 127 mmol/L (136-145); Total Bilirubin 0.3 mg/dL (0.15-1.2); Total Protein 5.2 g/dL (6.6-8.7)
[2020-04-08 04:16] LABS: Carbon Dioxide 44 mmol/L (22-29)
--- NOTE | 2020-04-08 04:34 | PC.NURSE ---
Patient current HR at 85 to 109. Decreased cardizem gtt to 5ml/hr. BP at 87/56 with map of 66.
--- NOTE | 2020-04-08 04:46 | PC.NURSE ---
Informed Dr Man that patient did received scheduled dose of Trazadone 150mg (home dose) at bedtime along with 0.5 mg of xanax. Patient had been yelling out demanding a cigarette, refusing care and refusing to speak with family until she got a cigarette. After patient calm some she was able to speak with both her daughters and was agreeable to use her bipap. Bipap has been in place all night.
[2020-04-08] MEDS: budesonide 0.5 mg/2 mL Neb INHALATION ×2 (08:31→19:28)
[2020-04-08 08:44] LABS: Magnesium 1.6 mg/dL (1.7-2.3)
--- NOTE | 2020-04-08 09:21 | PC.NURSE ---
PATIENT BLOOD PRESSURE HAS REMAINED SOFT, USUALLY 90'S/50'S. DR YOU NOTIFIED, ALSO NOTIFIED OF PATIENT WEIGHT LOSS OVER NIGHT. PHYSICIAN ORDERED TO PAUSE CARDIZEM GTT AND HOLD THIS DOSE OF METOPROLOL. ALSO ORDERED 250ML NORMAL SALINE BOLUS.
[2020-04-08] MEDS: predniSONE 20 mg Tablet 40 MG PO (09:39)
[2020-04-08] MEDS: sodium chloride 0.9% 250 ML IV (09:39)
[2020-04-08] MEDS: nicotine 14 mg Patch 1 PATCH TRANSDERMA (09:39)
[2020-04-08] MEDS: doxycycline 100 mg Tablet PO ×2 (09:39→17:44)
[2020-04-08] MEDS: digoxin 250 mcg/ml INJ 2 mL 125 MCG IVP (09:39)
[2020-04-08] MEDS: venlafaxine ER (24HR) 150 mg Capsule PO (09:40)
[2020-04-08] MEDS: apixaban 5 mg Tablet PO ×2 (09:40→17:43)
[2020-04-08] MEDS: pantoprazole DR 40 mg Tablet PO (09:40)
--- NOTE | 2020-04-08 09:42 | PM.PN ---
Subjective Subjective: Interval history: When asked how she is feeling replies that her breathing is not very good , although at the same time says probably not a whole lot worse than usual. Denies any chest pain, or other discomfort. Vitals/I&O/Wt Last Vital Signs Temp 98.3 F 04/07/20 20:00 Pulse 90 04/08/20 08:33 Resp 18 04/08/20 08:33 BP 96/70 04/08/20 08:00 Pulse Ox 100 04/08/20 08:33 04/07/20 04/08/20 04/08/20 22:59 06:59 14:59 Intake Total 120 / 360 11.250 / 371.250 120 / 120 Balance 120 / -240 11.250 / -228.750 120 / 120 Weight last 48 hrs Weight 47.4 kg Weight 51.347 kg Weight 45.359 kg Physical Exam Const: COMMON NORMALS: no acute distress and patient oriented x3 OTHER: Anxious. HENMT: COMMON NORMALS: oropharynx normal Neck/C-Spine: COMMON NORMALS: no JVD Resp: AUSCULTATION: wheezes (Mild) and diminished lung sounds (Slightly better today) Cardio: COMMON NORMALS: no JVD, S1 normal heart sound present, S2 normal heart sound present and No murmurs present (Cardio) RATE: tachycardic RHYTHM: abnormal rhythm irregularly irregular HEART SOUNDS: S1 normal heart sound present and S2 normal heart sound present GI: COMMON NORMALS: Normal to inspection, nondistended, normoactive bowel sounds present, Soft to palpation and non-tender PALPATION: Yes Soft to palpation Extremity: COMMON NORMALS: no joint enlargement and no pedal edema Neuro: COMMON NORMALS: patient oriented x3 and moves all extremities Skin: COMMON NORMALS: no rashes or lesions noted GENERAL SKIN EXAM: no rashes or lesions noted Data : 04/08/20 03:00 04/08/20 03:00 A&P Assessment and plan (1) Atrial fibrillation: Heart rhythm again changed to A. fib with RVR overnight. Up to 140s. Had to be restarted on Cardizem drip. Blood pressures are soft this morning. Heart rates are slightly better to 110. Currently on 5 mg of Cardizem. As blood pressures are soft, for now hold metoprolol, will give 0.25 mg dose of digoxin, with BP 90/60 also give her a small bolus of 250 mL saline. For now hold additional Lasix. Monitor heart rate, blood pressure. If blood pressure improves may resume her metoprolol. Replace magnesium. Cont Eliquis. Continue treatment of COPD exacerbation. Status: Acute Qualifiers: Atrial fibrillation type: unspecified Qualified Code(s): I48.91 - Unspecified atrial fibrillation (2) COPD (chronic obstructive pulmonary disease): Subjectively says breathing is not very good, although probably not very far from her usual. Today is having somewhat better air entry, does have mild wheeze. Reports intermittent cough. Currently weaned down to 2 L nasal cannula oxygen. COPD with exacerbation. Bilateral poor air entry. Intermittent cough. On BiPAP this morning. She subjectively states she is feeling better. At home she herself states is not always adherent to BiPAP, and says that the mask is not comfortable. At the same time I am finding out that there is a BiPAP that was ordered by pulmonology for her, and is actually pending and [facility], so I am not sure whether she actually has a machine at home or not. Not sure if maybe she is talking about nebulizer. At this time continue steroid, breathing treatments, antibiotic. Care coordination will look into more regarding her BiPAP, will try to make sure that she has it available prior to discharge. With concern of some deconditioning, impulsive behavior, not consistent adherence with BiPAP, PT and OT evaluations have been requested. Discharge to correction facility prior to return home was offered, however, family declined to pursue this route, although are okay for home health PT, and stating will be taking turns checking up on her daily. Status: Acute Qualifiers: COPD type: COPD with acute exacerbation Qualified Code(s): J44.1 - Chronic obstructive pulmonary disease with (acute) exacerbation (3) Chronic respiratory failure with hypoxia and hypercapnia: Continue nebulizer treatments, budesonide as recommended by pulmonology. Continue revefenacin if someone is able to bring in for her. Arrangements for home ventilator. Status: Acute (4) Nicotine abuse: continue to encourage cessation. Status: Acute (5) Hyponatremia: Suspect secondary to acute on chronic respiratory failure. Continue treatment of underlying condition. Monitor sodium. Liberalize diet. Status: Acute Additional A&P Information Likely pulmonary hypertension: Continue follow-up with pulmonology Elevated BNP: Grade 1 diastolic dysfunction noted on prior echo. Clearly minimal if any fluid overload, though does appear to have some JVD distention. Possibly in relation to the above. At this time continue oral Lasix. Elevated BNP likely also related to her pulmonary hypertension, chronic lung disease and arrhythmia on presentation. Leukocytosis: possibly related to respiratory failure/COPD exacerbation or stress related. Procalcitonin negative. Attestations Medical Necessity Statement*: Continue admission for assessment management of A. fib with RVR, COPD exacerbation with underlying chronic respiratory failure. Coding Level of Care Code Acute Housekeeping Department Worker for [facility] Fwd Diagnoses Atrial fibrillation I48.91 Atrial fibrillation type: unspecified COPD (chronic obstructive pulmonary disease) J44.1 COPD type: COPD with acute exacerbation Chronic respiratory failure with hypoxia and hypercapnia J96.11; J96.12 Nicotine abuse Z72.0 Hyponatremia E87.1
[2020-04-08] MEDS: magnesium sulfate premix 4 GM/100 ML PREMIX IV (11:36)
[2020-04-08] MEDS: digoxin 250 mcg/ml INJ 2 mL IVP ×2 (14:02→16:13)
--- NOTE | 2020-04-08 14:10 | PC.NURSE ---
DR. YOU NOTIFIED OF PATIENT'S MILDY INCREASING HEART RATE AND LOW BP'S. PATIENT HAS NEW COMPLAINT OF SHORTNESS OF BREATH. LUNG SOUNDS DIMINISHED BUT NO CRACKLES OR WHEEZES NOTED. DR. YOU ORDERED 250MCG OF DIGOXIN IVP.
[2020-04-08] MEDS: ALPRAZolam 0.5 mg Tablet PO (18:18)
--- NOTE | 2020-04-08 19:22 | PC.NURSE ---
Patient resting with eyes closed, even respirations. SpO2 at 98% on 2L NC. No distress observed.
--- NOTE | 2020-04-08 20:02 | PC.NURSE ---
Patient heart rate currently at mid 80s to high 160s nothing sustaining for any length of time. Patient is asymptomatic. No distress observed. Patient is on bipap at 40%. Informed Dr Man and received order to continue to observe for now.
[2020-04-09] VITALS (28 sets, daily range): BP systolic 91–158; BP diastolic 53–77; PULSE 60–143; RESP 12–23; TEMP 36–36.7; O2SAT 89–100
--- NOTE | 2020-04-09 00:04 | PC.NURSE ---
Heart rate continues to run low 100s to as high as 180. Patient remains asymptomatic with blood pressures as documented. Informed Dr Man, no orders received at this time.
[2020-04-09] MEDS: ipratropium-albuterol 3 mL Neb INHALATION ×5 (00:30→20:26)
--- NOTE | 2020-04-09 01:25 | PC.NURSE ---
Patient heart rate 120s to 140s at times. Received telephone order from Dr Man to give Metoprolol 25mg PO once.
[2020-04-09] MEDS: metoprolol tartrate 25 mg Tablet PO ×2 (01:31→17:14)
--- NOTE | 2020-04-09 01:33 | PC.NURSE ---
Patient awake, alert, and oriented to self. Patient is very pleasant. HR continues to be mid 110s to 150. Administered Metoprolol one time dose as ordered. Instructed patient on effects of Metoprolol. Patient verbalized understanding but will need reinforcement. Patient given gram crackers and orange juice. Patient expressed thanks. Currently on 2L NC with SpO2 at 100%.
--- NOTE | 2020-04-09 02:36 | PC.NURSE ---
Patient heart rate better controlled at mid 80s to low 100s. Patient wide awake becoming very anxious and beginning to yell out some. Patient is redirectable and pleasant. Grahams crackers given at patient request.
[2020-04-09] MEDS: ALPRAZolam 0.5 mg Tablet PO (03:18)
--- NOTE | 2020-04-09 03:19 | PC.NURSE ---
Patient requesting something for sleep wanting her trazadone. Instructed patient that is was late in the morning and was unable to give at this time. Patient continued to repeat herself and ask for the medications. Administered Xanax as ordered for anxiety and agitation. Explained to patient that this medication may also help her to sleep a little and expressed thanks. Patient is confused at times becoming fixated on things until able to redirect.
[2020-04-09 04:45] LABS: Hematocrit 30.1 % (37.0-47.0); Hemoglobin 9.3 g/dL (11.5-15.3); Lymphocytes # 0.4 10^3/uL (0.8-4.8); Lymphocytes % 4.4 %; Mean Corpuscular HGB Conc 30.9 g/dL (30.0-36.0); Mean Corpuscular Hemoglobin 32.2 pg (28.0-34.0); Mean Corpuscular Volume 104.2 fL (81-99); Mean Platelet Volume 10.9 fL (7.4-10.4); Monocytes # 0.5 10^3/uL (0.2-0.9); Monocytes % 5.1 %; Neutrophils # 8.6 10^3/uL (1.8-7.7); Neutrophils % 90.1 %; Nucleated Red Blood Cells % 0 %; Platelet Count 226 10^3/cmm (130-400); Red Blood Count 2.89 10^6/uL (4.1-5.3); Red Cell Distribution Width 12.4 % (12.1-15.1); White Blood Count 9.5 10^3/uL (4.0-10.0)
[2020-04-09 05:09] LABS: Digoxin 1.2 ng/mL (0.6-1.2)
[2020-04-09 05:14] LABS: Alanine Aminotransferase 12 U/L (0-33); Albumin Level 3.4 g/dL (3.5-5.2); Alkaline Phosphatase 58 IU/L (35-105); Anion Gap 8.1 (5-19); Aspartate Amino Transferase 11 U/L (0-32); Blood Urea Nitrogen 26 mg/dL (8-23); Calcium 8.2 mg/dL (8.5-10.5); Chloride 84 mmol/L (98-107); Creatinine Clr Calc Pharmacy 44.7667; Globulin 1.4 g/dL (1.3-4.6); Glucose 353 mg/dL (65-115); Osmolality Calculated 283 mOsm/kg (285-295); Potassium 4.1 mmol/L (3.5-5.1); Sodium 131 mmol/L (136-145); Total Bilirubin 0.2 mg/dL (0.15-1.2); Total Protein 4.8 g/dL (6.6-8.7)
[2020-04-09 05:24] LABS: Carbon Dioxide 43 mmol/L (22-29)
[2020-04-09] MEDS: predniSONE 20 mg Tablet 40 MG PO (09:07)
[2020-04-09] MEDS: apixaban 5 mg Tablet PO ×2 (09:07→17:14)
[2020-04-09] MEDS: doxycycline 100 mg Tablet PO ×2 (09:07→17:15)
[2020-04-09] MEDS: digoxin 125 mcg Tablet PO (09:07)
[2020-04-09] MEDS: pantoprazole DR 40 mg Tablet PO (09:07)
[2020-04-09] MEDS: metoprolol succinate ER (24 HR) 50 mg Tablet PO (09:08)
[2020-04-09] MEDS: nicotine 14 mg Patch 1 PATCH TRANSDERMA (09:08)
[2020-04-09] MEDS: venlafaxine ER (24HR) 150 mg Capsule PO (09:08)
[2020-04-09] MEDS: budesonide 0.5 mg/2 mL Neb INHALATION ×2 (09:18→20:26)
[2020-04-09] MEDS: metoprolol tartrate 25 mg Tablet 12.5 MG PO ×2 (09:32→14:05)
--- NOTE | 2020-04-09 09:50 | PC.NURSE ---
Dr palmer notified of patients current vital sings of HR increased 100-123 Bp 107/53 also discussed medications that was given through the night; metoprolol tartrate 25mg was given at 0130 this am Metorpolol succinate ER due at 0900 NEW instructions given to discontinue that metoprolol succinate and start metoprolol tartrate 12.5 mg BID
--- NOTE | 2020-04-09 10:02 | PC.CHAP ---
Pastoral Care Encounter/Spiritual Assessment Type of Contact [] Declined storage worker visit [] Patient/Family/Request visit [] Outpatient visit [] Follow-up visit [] Physician referral [] Code/Alert [x] Routine visit [] Staff referral [] Actively dying [] Patient sleeping [] Family support [] [] Out of room [] Palliative care [] [] Receiving care in room [] Pre-surgical visit [] Trauma [] Long length of stay [] ICU visit [] Other: Relational/Emotional Strength [] Patient feels connected with others/family/visitors/staff [] Distress [] Loneliness/isolation [] Abandonment Spirituality of Patient [] Person of Tiera [] Attends Mandaeism of their T[place] [] Believes in Prayer [] Reads Bible or Latter-Day materials [] There are Spiritual issues to be addressed Field Laborer Interventions [x] Prayer [] Active listening [] Non-anxious presence [] Spiritual/emotional support [] Crisis/trauma care [] Spiritual counseling [] Bereavement support [] Provided bereavement packet [] Provided Bible/devotional materials [] Provided toy/stuffed animal, coloring book to patient or family member [] Provided Communion [] Anointing/Countyline [] Salvation [x] Completed spiritual assessment [] Other: Impact on Illness or Injury [] Angry [] Fearful [] Anxious [] Often cries [] Exhaustion [] Unable to work [] Unable to attend moravian [] Unable to walk/stand [] Unable to read [] Unable to drive [] Unable to eat/drink [] Unable to sleep [] Unable to be with family [] Patient intubated [] Other: Summary Patient resting much better today without mask. Some confusion , but working hard on getting better. Time spent with patient 15min
[2020-04-09 11:27] LABS: Glucose Point of Care 185 mg/dL (70-110)
--- NOTE | 2020-04-09 12:40 | PC.NURSE ---
Dr worthington at bedside discussed POC with patient gave instructions to this nurse to give 500 ml bolus over 1 hour and call with vital signs when bolus complete
--- NOTE | 2020-04-09 12:50 | P.PN_ITS ---
Subjective Subjective: Interval history: States she is feeling not the greatest , but overall is doing all right. He is working with physical therapy. Per discussion with nursing staff has been demanding multiple times for a cigarette. Vitals/I&O/Wt Last Vital Signs Temp 96.8 F L 04/09/20 04:00 Pulse 97 04/09/20 12:00 Resp 17 04/09/20 12:00 BP 124/66 04/09/20 12:00 Pulse Ox 98 04/09/20 12:00 04/08/20 04/09/20 04/09/20 22:59 06:59 14:59 Intake Total 220 / 736.25 458 / 458 Output Total 400 / 400 300 / 700 Balance -180 / 336.25 -300 / 36.25 458 / 458 Weight last 48 hrs Weight 49.26 kg Weight 47.4 kg Physical Exam Const: COMMON NORMALS: no acute distress and patient oriented x3 OTHER: Sitting up at the bedside, working with physical therapy. She is somewhat irritable, but cooperating with ROS, exam. HENMT: COMMON NORMALS: oropharynx normal Neck/C-Spine: COMMON NORMALS: no JVD Resp: AUSCULTATION: wheezes (Mild) and diminished lung sounds (With audible air entry, and this is improving.) Cardio: COMMON NORMALS: no JVD, S1 normal heart sound present, S2 normal heart sound present and No murmurs present (Cardio) RATE: tachycardic RHYTHM: abnormal rhythm irregularly irregular HEART SOUNDS: S1 normal heart sound present and S2 normal heart sound present GI: COMMON NORMALS: Normal to inspection, nondistended, normoactive bowel sounds present, Soft to palpation and non-tender PALPATION: Yes Soft to palpation Extremity: COMMON NORMALS: no joint enlargement and no pedal edema Neuro: COMMON NORMALS: patient oriented x3 and moves all extremities Skin: COMMON NORMALS: no rashes or lesions noted GENERAL SKIN EXAM: no rashes or lesions noted Data : 04/09/20 03:45 04/09/20 03:45 A&P Assessment and plan (1) Atrial fibrillation: Kait koehler with RVR, difficult to control, has required Cardizem drip twice during his admission, yesterday weaned off Cardizem, with soft pressure, heart rate still 110-occasionally 120, was loaded with a drop in, today therapeutic dose started on oral formulation. Blood pressure today somewhat but, restarting Toprol, although still this morning so metoprolol dose was decreased to 12.5 mg. Heart rates still very erratic, and going up to 130s, mostly above 100. For now and trying to avoid starting on amiodarone given her other underlying conditions Appreciate cardiology consultation regarding additional possibilities to improve control so she may return home. Also magnesium has been low, replaced, will recheck again today. Cont Eliquis. COPD exacerbation is better. Status: Acute Qualifiers: Atrial fibrillation type: unspecified Qualified Code(s): I48.91 - Unspecified atrial fibrillation (2) COPD (chronic obstructive pulmonary disease): COPD exacerbation better. Discussed extensively with her daughter. She needs to quit smoking as unf ortunately she has been demanding for a cigarette while in the hospital and that tells me she smokes regularly at home. Daughter verbalized understanding. Per request will decrease frequency of DuoNeb nebulization given concern for tachycardia since her is now somewhat better. Likely some anxiety also secondary to being in the hospital, family unable to, although unfortunately this is not currently possible with pandemic restrictions. Discussed also some anxiety may be secondary to steroid use for treatment of exacerbation. Daughter is okay with keeping current dose Xanax, but asks that this not to be intensified despite anxiety. Discussed unfortunately that due to multifactorial chronic respiratory failure with ongoing smoking, unfortunately prognosis is not good. We will try to get her heart rates a little bit better, and daughter would like her to come home right after. Status: Acute Qualifiers: COPD type: COPD with acute exacerbation Qualified Code(s): J44.1 - Chronic obstructive pulmonary disease with (acute) exacerbation (3) Chronic respiratory failure with hypoxia and hypercapnia: Continue nebulizer treatments, budesonide as recommended by pulmonology. Continue revefenacin if someone is able to bring in for her. Arrangements for home ventilator. Status: Acute (4) Nicotine abuse: continue to encourage cessation. Status: Acute (5) Hyponatremia: Suspect secondary to acute on chronic respiratory failure. Improving. Continue treatment of underlying condition. Monitor sodium. Liberalized diet. Status: Acute Additional A&P Information Likely pulmonary hypertension: Continue follow-up with pulmonology Elevated BNP: Grade 1 diastolic dysfunction noted on prior echo. Clearly minimal if any fluid overload, though does appear to have some JVD distention. Possibly in relation to the above. Held Lasix as she was on the dry side, some worsening of renal function, and with soft blood pressures. Elevated BNP likely also related to her pulmonary hypertension, chronic lung disease and arrhythmia on presentation. Leukocytosis: possibly related to respiratory failure/COPD exacerbation or stress related. Procalcitonin negative. Attestations Medical Necessity Statement*: Continue admission for optimization of medical management for A. fib with RVR. Coding Level of Care Code Acute Women'S Health Care Nurse Practitioner for [facility] Diagnoses Atrial fibrillation I48.91 Atrial fibrillation type: unspecified COPD (chronic obstructive pulmonary disease) J44.1 COPD type: COPD with acute exacerbation Chronic respiratory failure with hypoxia and hypercapnia J96.11; J96.12 Nicotine abuse Z72.0 Hyponatremia E87.1
[2020-04-09] MEDS: sodium chloride 0.9% 500 ML IV (13:11)
[2020-04-09 13:55] LABS: Magnesium 2.2 mg/dL (1.7-2.3)
[2020-04-09] MEDS: sodium chloride 0.9% 500 ML 250 ML IV (14:15)
--- NOTE | 2020-04-09 14:18 | PC.NURSE ---
Notified Dr worthington of change in Ecg monitor during bolus admin and stabilization in vital signs instructions given to give Normal saline at a rate of 250ml/hr for 2 hours; increase metoprolol to 25 mg BID also give metoprolol 12.5mg now Dr irving notified as well no new instructions at this time
--- NOTE | 2020-04-09 15:11 | P.CONIM_ITS ---
Providers/Reason For Consult Consulting Physican/Specialty*: Cardiology Reason for Consult*: Atrial fibrillation with RVR Hypotension Attending Physician: Taras Castro Primary Care Provider: Jeferson Ardon APN History of Present Illness History of Present Illness Deidra De La Torre is a 74 year old female past medical history significant for COPD, hypertension, recent atrial fibrillation, moderate tricuspid valve regurgitation, moderate pulmonary was admitted with COPD exacerbation and A. fib with RVR. Over the period of next 2 days patient got improved COPD advised however despite of optimization of medicine atrial fibrillation was not able to get under control as patient developed soft blood pressure and hypotension. Currently she is on metoprolol and digoxin. I have been asked by Dr. Call to assist in her care. When I saw the patient she denies chest pain PND orthopnea. She denies any prior history of congestive heart failure she denies lower extremity edema. Overall she thinks she is breathing much better. Her heart rate varies from 107-100 20s on the monitor. She is in A. fib. She denies any prior history of atrial fibrillation. In the month of December she had echocardiogram which showed normal ejection fraction. Echo was also suggestive of moderate pulmonary prevention and moderate tricuspid valve regurgitation with mild left atrial enlargement. Review of Systems General: Reports: 10 or more systems reviewed and unremarkable except in HPI and below Const: Denies: fever(s), chills, body aches or change in appetite Eyes: Denies: change in vision, blurry vision, photophobia or eye discomfort ENMT: Reports: hoarseness; Denies: throat pain, enlarged tonsils, odynophagia, dental pain or nasal congestion Card: Denies: chest pain, palpitations, irregular heart rhythm, edema, swelling of feet/ankles, lightheadedness, pre-syncope, dyspnea on exertion or orthopnea Resp: Denies: dyspnea, productive cough, non-productive cough, wheezing, stridor, pain on inspiration, change in phlegm color, hemoptysis or chest congestion GI: Denies: abdominal pain, nausea, vomiting, hematemesis, coffee ground emesis, dysphagia, heartburn, diarrhea, constipation, GI cramping, change in stool character, hematochezia or melena : Denies: flank pain, difficulty voiding, dysuria, urinary frequency, urinary urgency, urinary hesitancy or hematuria Musc: Denies: neck pain, back pain, extremity pain, joint swelling, joint warmth or deformity Skin/Breast: Denies: rash Neuro: Denies: headache(s), numbness in extremities, weakness in extremities, sensory changes, difficulty walking, frequent falls, dizziness, vertigo, behavioral changes, Slurred speech present or seizure-like activity Psych: Denies: anxiety, depression, suicidal ideation or homicidal ideation Endo: Denies: polyuria, polydipsia, tired all the time, cold intolerance or hot flashes Michi/Lymph: Denies: easy bruising or easy bleeding All/Imm: Denies: urticaria Meds/Allergies Home Medications and Allergies Home Medications Medication Instructions Recorded Confirmed Last Taken Type albuterol sulfate 2.5 mg INHALATION Q4H 12/29/19 04/07/20 Unknown History amlodipine 10 mg PO DAILY #30 tab 12/29/19 04/07/20 04/06/20 07:00 Rx apixaban [Eliquis] 5 mg PO BID #60 tab 12/29/19 04/07/20 04/06/20 07:00 Rx fluticasone propion-salmeterol 1 inh INHALATION BID 12/29/19 04/07/20 04/06/20 07:00 History lisinopril 20 mg PO BEDTIME 12/29/19 04/07/20 Unknown History metformin 500 mg PO BID 12/29/19 04/07/20 04/06/20 07:00 History metoprolol succinate [Toprol XL] 50 mg PO DAILY 12/29/19 04/07/20 04/07/20 05:00 History trazodone 150 mg PO BEDTIME 12/29/19 04/07/20 Unknown History venlafaxine 150 mg PO QAM 12/29/19 04/07/20 04/07/20 05:00 History budesonide 0.5 mg/2 mL suspension 0.5 mg INHALATION BID 90 Days #360 04/01/20 04/07/20 04/06/20 07:00 Rx for nebulization ml formoterol fumarate 20 mcg/2 mL 2 ml INHALATION Q12H 90 Days #120 04/01/20 04/07/20 04/06/20 Rx solution for nebulization ml furosemide 20 mg tablet 20 mg PO DAILY 30 Days #30 tab 05/04/07/20 04/06/20 07:00 Rx revefenacin 175 mcg/3 mL solution 175 mcg INHALATION DAILY 90 Days 04/01/20 04/07/20 04/06/20 Rx for nebulization #90 ml Allergies Allergy/AdvReac Type Severity Reaction Status Date / Time Penicillins Allergy Intermediate Unknown Verified 04/01/20 16:23 Current Medications Current Medications Generic Name Dose Route Start Last Admin Trade Name Freq PRN Reason Stop Dose Admin Albuterol/Ipratropium 3 ml 04/09/20 15:00 04/09/20 15:03 Duoneb INHALATION 3 ml TID.RESPIRATORY MAKENZIE Administration Alprazolam 0.5 mg 04/07/20 21:00 04/09/20 03:18 Xanax PO 0.5 mg TID PRN Administration ANXIETY Apixaban 5 mg 04/07/20 09:00 04/09/20 09:07 Eliquis PO 5 mg BID MAKENZIE Administration Budesonide 0.5 mg 04/07/20 20:00 04/09/20 09:18 Pulmicort INHALATION 0.5 mg BID.RESPIRATORY MAKENZIE Administration Digoxin 125 mcg 04/09/20 09:00 04/09/20 09:07 Lanoxin PO 125 mcg DAILY MAKENZIE Administration Doxycycline Monohydrate 100 mg 04/07/20 09:00 04/09/20 09:07 Vibramycin PO 100 mg BID MAKENZIE Administration Protocol Furosemide 20 mg 04/07/20 09:00 04/07/20 08:35 Lasix PO 20 mg DAILY MAKENZIE Administration Diltiazem HCl 125 mg/ Sodium 125 mls @ 5 mls/hr 04/07/20 01:45 04/09/20 03:16 Chloride IV Not Given .Q24H MAKENZIE 5 MG/HR Sodium Chloride 500 mls @ 250 mls/hr 04/09/20 14:30 04/09/20 14:15 Sodium Chloride 0.9% IV 04/09/20 16:29 250 mls/hr .Q2H MAKENZIE Administration Insulin Aspart 0 unit 04/09/20 12:00 04/09/20 12:10 Novolog SUBCUT 4 unit WM&BEDTIME MAKENZIE Administration Protocol Lisinopril 20 mg 04/07/20 21:00 04/08/20 20:09 Prinivil PO Not Given BEDTIME MAKENZIE Nicotine 1 patch 04/07/20 11:55 04/09/20 09:08 Nicoderm 14 Mg Patch TRANSDERMA 1 patch DAILY MAKENZIE Administration Pantoprazole Sodium 40 mg 04/07/20 09:00 04/09/20 09:07 Protonix PO 40 mg DAILY MAKENZIE Administration Prednisone 40 mg 04/07/20 09:00 04/09/20 09:07 Prednisone PO 40 mg DAILY MAKENZIE Administration Trazodone HCl 150 mg 04/07/20 21:00 04/08/20 20:09 Desyrel PO Not Given BEDTIME MAKENZIE Venlafaxine HCl 150 mg 04/07/20 06:00 04/09/20 09:08 Effexor Xr PO 150 mg QAM MAKENZIE Administration PFSH Acute PFSH: Medical History (Updated 04/09/20 @ 15:26 by Gabbie Romero MD) Anxiety and depression Chest pain COPD (chronic obstructive pulmonary disease) Hyperlipidemia Hypertension Multiple sclerosis Type 2 diabetes mellitus Surgical History History of appendectomy Family History Other Diabetes Hypertension Social History Smoking and tobacco status: current every day smoker cigarettes [ Other cigarette details: Hx of 1 PDD x 60 Years ] Alcohol intake: never Lives independently: Yes Household members: spouse Marital status: Current occupational status: unemployed History of recent travel: No Current gender identity: Female Dietary Habits: Current diet type/program: regular Caffeine: Yes Vitals/I&O/Wt Last Vital Signs Temp 96.8 F L 04/09/20 04:00 Pulse 78 04/09/20 15:04 Resp 18 04/09/20 15:04 BP 131/63 04/09/20 14:45 Pulse Ox 98 04/09/20 15:04 04/09/20 04/09/20 04/09/20 06:59 14:59 22:59 Intake Total 1318 / 1318 Output Total 300 / 700 200 / 200 Balance -300 / 36.25 1118 / 1118 Weight last 48 hrs Weight 108 lb 9.6 oz Weight 104 lb 8 oz Physical Exam Narrative: EXAM NARRATIVE: GENERAL: Patient is alert, awake and oriented x3. She is thin built NECK: No jugular vein distension. HEENT: No cyanosis. No icterus. No pallor. HEART: Irregularly regular S1 and S2. No murmur, rub or gallop. LUNGS: Decreased breath sound bilaterally. ABDOMEN: Soft, nontender and nondistended. Positive bowel sounds. No guarding, rebound or tenderness. CENTRAL NERVOUS SYSTEM: Grossly nonfocal. EXTREMITIES: Lower extremities without edema bilaterally. A&P Assessment and plan (1) Atrial fibrillation: It appeared to me that patient is dry and volume contracted which is driving her heart rate high along with low blood pressure. I recommend giving her IV fluid. We will give her 500 bolus followed by 500 mL over the next 2 to 3 hours. I will increase metoprolol to 25 mg twice daily we will continue digoxin. Continue anticoagulation. Status: Acute Qualifiers: Atrial fibrillation type: unspecified Qualified Code(s): I48.91 - Unspecified atrial fibrillation (2) COPD (chronic obstructive pulmonary disease): As per medicine appears to be stable Status: Acute Qualifiers: COPD type: COPD with acute exacerbation Qualified Code(s): J44.1 - Chronic obstructive pulmonary disease with (acute) exacerbation (3) Hypotension: IV fluid recommended since patient is volume contracted. 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
[2020-04-09 16:56] LABS: Glucose Point of Care 358 mg/dL (70-110)
--- NOTE | 2020-04-09 17:08 | PC.NURSE ---
Consulted with Dr. worthington about dose changes on lisinopril instructions given to decrease lisinopril to 2.5 at bedtime
[2020-04-09 20:52] LABS: Glucose Point of Care 282 mg/dL (70-110)
[2020-04-09] MEDS: lisinopril 2.5 mg Tablet PO (20:54)
[2020-04-09] MEDS: trazodone 150 mg Tablet PO (20:54)
[2020-04-10 04:00] VITALS: BP 135/66; PULSE 80; RESP 14; TEMP 36.5; O2SAT 93
[2020-04-10 05:06] LABS: Basophils % 0.1 %; Eosinophils % 0.1 %; Hematocrit 33.6 % (37.0-47.0); Hemoglobin 10.3 g/dL (11.5-15.3); Lymphocytes # 0.7 10^3/uL (0.8-4.8); Lymphocytes % 8.6 %; Mean Corpuscular HGB Conc 30.7 g/dL (30.0-36.0); Mean Corpuscular Hemoglobin 32.2 pg (28.0-34.0); Mean Platelet Volume 10.2 fL (7.4-10.4); Monocytes # 0.4 10^3/uL (0.2-0.9); Monocytes % 4.7 %; Neutrophils # 6.7 10^3/uL (1.8-7.7); Neutrophils % 86.2 %; Nucleated Red Blood Cells % 0 %; Platelet Count 235 10^3/cmm (130-400); Red Cell Distribution Width 12.2 % (12.1-15.1); White Blood Count 7.8 10^3/uL (4.0-10.0)
[2020-04-10 05:18] LABS: Anion Gap 6.9 (5-19); Blood Urea Nitrogen 26 mg/dL (8-23); Calcium 8.5 mg/dL (8.5-10.5); Chloride 88 mmol/L (98-107); Glucose 112 mg/dL (65-115); Osmolality Calculated 278 mOsm/kg (285-295); Potassium 4.9 mmol/L (3.5-5.1); Sodium 135 mmol/L (136-145)
[2020-04-10 05:21] LABS: Carbon Dioxide 45 mmol/L (22-29)
[2020-04-10] MEDS: venlafaxine ER (24HR) 150 mg Capsule PO (06:12)
[2020-04-10 06:28] LABS: Glucose Point of Care 125 mg/dL (70-110)
[2020-04-10 08:00] VITALS: BP 163/65; PULSE 81; RESP 16; TEMP 36.6; O2SAT 100
[2020-04-10] MEDS: doxycycline 100 mg Tablet PO (08:34)
[2020-04-10] MEDS: pantoprazole DR 40 mg Tablet PO (08:34)
[2020-04-10] MEDS: predniSONE 20 mg Tablet PO (08:34)
[2020-04-10] MEDS: apixaban 5 mg Tablet PO (08:34)
[2020-04-10 08:35] VITALS: PULSE 114
[2020-04-10] MEDS: digoxin 125 mcg Tablet PO (08:35)
[2020-04-10] MEDS: metoprolol tartrate 25 mg Tablet PO (08:36)
[2020-04-10] MEDS: nicotine 14 mg Patch 1 PATCH TRANSDERMA (08:36)
[2020-04-10 09:40] VITALS: PULSE 77; RESP 17; O2SAT 100
[2020-04-10] MEDS: ipratropium-albuterol 3 mL Neb INHALATION (09:40)
[2020-04-10] MEDS: budesonide 0.5 mg/2 mL Neb INHALATION (09:40)
--- NOTE | 2020-04-10 10:22 | PM.PN ---
Subjective Subjective: Interval history: She has no complaints this morning. Happy that she is going home. No complaints of fast heart rate. No chest pains. Medications: Reviewed: Yes Vitals/I&O/Wt Last Vital Signs Temp 97.8 F 04/10/20 08:00 Pulse 77 04/10/20 09:40 Resp 17 04/10/20 09:40 BP 163/65 04/10/20 08:00 Pulse Ox 100 04/10/20 09:40 04/09/20 04/10/20 04/10/20 22:59 06:59 14:59 Intake Total 1080 / 2398 50 / 2448 240 / 240 Output Total 275 / 475 375 / 850 Balance 805 / 1923 -325 / 1598 240 / 240 Weight last 48 hrs Weight 111 lb 12.8 oz Weight 108 lb 9.6 oz Physical Exam Const: COMMON NORMALS: no acute distress NUTRITIONAL APPEARANCE: thin Neck/C-Spine: COMMON NORMALS: no JVD Cardio: COMMON NORMALS: no JVD, regular rhythm and No clicks present (Cardio) JUGULAR VENOUS DISTENTION: no JVD RATE: tachycardic RHYTHM: regular rhythm GI: COMMON NORMALS: Normal to inspection, nondistended, normoactive bowel sounds present, Soft to palpation and non-tender PALPATION: Yes Soft to palpation Extremity: COMMON NORMALS: no clubbing, cyanosis or edema, no calf tenderness and no pedal edema Neuro: COMMON NORMALS: moves all extremities and no focal motor deficits Psych: COMMON NORMALS: mental status grossly normal and cooperative Skin: COMMON NORMALS: no rashes or lesions noted, no wounds and turgor normal GENERAL SKIN EXAM: no rashes or lesions noted and turgor normal Data : 04/10/20 04:00 04/10/20 04:00 A&P Assessment and plan (1) Atrial fibrillation: Currently in NSR. Continue metoprolol, lisinopril and lasix. Continue anticoagulation. Status: Acute Qualifiers: Atrial fibrillation type: unspecified Qualified Code(s): I48.91 - Unspecified atrial fibrillation (2) Chronic respiratory failure with hypoxia and hypercapnia: Respiratory therapy effective. No change. Status: Acute (3) COPD (chronic obstructive pulmonary disease): Stable on bronchodilator therapy. Status: Acute Qualifiers: COPD type: COPD with acute exacerbation Qualified Code(s): J44.1 - Chronic obstructive pulmonary disease with (acute) exacerbation Attestations Medical Necessity Statement*: Discharge planned today. 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
[2020-04-10 11:35] LABS: Glucose Point of Care 193 mg/dL (70-110)
[2020-04-10 12:00] VITALS: BP 154/73; PULSE 70; RESP 18; TEMP 36.6; O2SAT 98
--- NOTE | 2020-04-10 12:17 | PM.DCS ---
Discharge Providers Date of Admission: 04/07/20 01:33 Date of Discharge: April 10, 2020 Attending Provider at Admission: Heidy Man MD Attending Provider at Discharge: Taras Castro Primary Care Provider: Jeferson Ardon APN Diagnoses at Discharge Discharge Diagnosis (1) Atrial fibrillation: Status: Acute Qualifiers: Atrial fibrillation type: unspecified Qualified Code(s): I48.91 - Unspecified atrial fibrillation (2) Chronic respiratory failure with hypoxia and hypercapnia: Status: Acute (3) COPD (chronic obstructive pulmonary disease): Status: Acute Qualifiers: COPD type: COPD with acute exacerbation Qualified Code(s): J44.1 - Chronic obstructive pulmonary disease with (acute) exacerbation Reason for Visit Reason for Visit: Reason For Visit: COPD EXACERBATION; AFIB W/RVR Hospital Course Hospital Course: Pleasant 74-year-old lady with history of chronic respiratory failure followed by pulmonology, secondary to COPD, pulmonary hypertension, chronically oxygen dependent 2 L by nasal cannula, and sometimes more, recently was assessed to benefit from home ventilator device arrangements for which have been in process, unfortunately still current smoker, also with DM 2, HTN, HLD, diastolic dysfunction, mild cognitive decline. She has been suffering through recurrent bouts of anxiety related to air hunger secondary to her chronic lung condition. She recently received prescription for antibiotic and steroid by her primary care provider due to respiratory symptoms on 04/01. During the most recent pulmonology visit she was started on Lasix, Pulmicort, formoterol, revefenacin. She has not yet received all of these medications which are supposed to arrive by mail. She has been continuing on prednisone taper. She reportedly also has history of MS per discussion with her daughter, and has not been on treatment in a long time, recently with worsening tremors, functional decline, and fatigue. On presentation here she was noted in COPD exacerbation, with decreased air entry, wheezing, for which was started on IV steroid initially, transition to prednisone, doxycycline, breathing treatments, oxygen support, BiPAP. Acute diastolic CHF for which initially was receiving Lasix subsequently resolved and was noted dehydration. Also noted in A. fib with RVR which was difficult to control during this hospitalization, requiring restarting Cardizem drip on several occasions, with control complicated by soft blood pressures. Her Lasix were actually discontinued, she was found to be rather dehydrated, she received cautious rehydration, and was able to achieve control with digoxin loading, switch of metoprolol to short acting twice daily dosing and with improvement in her respiratory condition. She is converted to sinus rhythm, and currently she is breathing much better, with prednisone decreased to 20 mg, blood pressure significantly improved, and no chest pain, palpitations, or other discomfort. She is eager to return home. She will continue on metoprolol 25 mg twice a day, digoxin. Will refer her for reassessment by pulmonology in office in 1 month, as well as reassessment by cardiology with regards to A. fib with RVR, CHF. Discussed with her daughter to target saturation 88-92%. It appears patient frequently gets anxious, and during that time oxygen is turned up, and appears may also be triggering her to revert to smoking. She was counseled extensively on smoking cessation, as well as her family. Recommend using anxiety medication as needed for episodes of air hunger. Please continue to encourage cessation. Of note we are trying to taper off prednisone, however, blood pressure was soft initially during the hospitalization, and with mild hyponatremia, normal potassium, history of multiple past courses of steroid, concern is whether she may develop some underlying adrenal insufficiency, which was discussed with the daughter. In the case of having difficulty weaning of prednisone unfortunately may require preventative steroid dosing to avoid adrenal insufficiency. Due to recently worsening tremors, fatigue, functional decline, with history of MS which has not been treated in a long time there was concern whether during may be some progression, and she is referred for evaluation by neurology on outpatient basis. Physical Exam Const: COMMON NORMALS: no acute distress and patient oriented x3 OTHER: Sitting up at the bedside, working with physical therapy. She is somewhat irritable, but cooperating with ROS, exam. HENMT: COMMON NORMALS: oropharynx normal Neck/C-Spine: COMMON NORMALS: no JVD Resp: COMMON NORMALS: clear to auscultation bilaterally AUSCULTATION: clear to auscultation bilaterally, no wheezes (Mild) and lung sounds not diminished (With audible air entry, and this is improving.) Cardio: COMMON NORMALS: no JVD, S1 normal heart sound present, S2 normal heart sound present and No murmurs present (Cardio) RATE: tachycardic RHYTHM: abnormal rhythm irregularly irregular HEART SOUNDS: S1 normal heart sound present and S2 normal heart sound present GI: COMMON NORMALS: Normal to inspection, nondistended, normoactive bowel sounds present, Soft to palpation and non-tender PALPATION: Yes Soft to palpation Extremity: COMMON NORMALS: no joint enlargement and no pedal edema Neuro: COMMON NORMALS: patient oriented x3 and moves all extremities Skin: COMMON NORMALS: no rashes or lesions noted GENERAL SKIN EXAM: no rashes or lesions noted Discharge Data Data Completed and Pending: Completed Studies During Hospitalization Category Date Time Status XR chest 1V carmen ble [id number] Urgent Exams 04/06/20 23:36 Completed Pending at discharge Category Date Time Status Arterial Blood Ga s W/Coox Stat Lab 04/06/20 00:10 Results Arterial Blood Ga s W/O Coox AM LABS Lab 04/07/20 03:47 Stop Req Basic Metabolic P lydia AM LABS Lab 04/11/20 04:00 Ordered Basic Metabolic P lydia AM LABS Lab 04/12/20 04:00 Ordered Complete Blood Co unt w/Auto AM LABS Lab 04/11/20 04:00 Ordered Complete Blood Co unt w/Auto AM LABS Lab 04/12/20 04:00 Ordered Labs from last 24 hours 04/10/20 04/10/20 04/10/20 11:14 06:15 04:00 WBC RBC Hgb Hct MCV MCH MCHC RDW Plt Count MPV Neut % (Auto) Lymph % (Auto) [place] % (Auto) Eos % (Auto) Baso % (Auto) Neut # (Auto) Lymph # (Auto) [place] # (Auto) Eos # (Auto) Baso # (Auto) Nucleated RBC % (a uto) Nucleated RBCs # Sodium 135 L Potassium 4.9 Chloride 88 L Carbon Dioxide 45 H* Anion Gap 6.9 BUN 26 H Creatinine 0.5 Glucose 112 POC Glucose 193 125 Calculated Osmolal ity 278 L Calcium 8.5 Magnesium 2.0 04/10/20 04/09/20 04/09/20 04:00 20:49 16:53 WBC 7.8 RBC 3.20 L Hgb 10.3 L Hct 33.6 L MCV 105.0 H MCH 32.2 MCHC 30.7 RDW 12.2 Plt Count 235 MPV 10.2 Neut % (Auto) 86.2 Lymph % (Auto) 8.6 [place] % (Auto) 4.7 Eos % (Auto) 0.1 Baso % (Auto) 0.1 Neut # (Auto) 6.7 Lymph # (Auto) 0.7 L [place] # (Auto) 0.4 Eos # (Auto) 0.0 Baso # (Auto) 0.0 Nucleated RBC % (a uto) 0 Nucleated RBCs # 0.0 Sodium Potassium Chloride Carbon Dioxide Anion Gap BUN Creatinine Glucose POC Glucose 282 358 Calculated Osmolal ity Calcium Magnesium 04/09/20 03:45 WBC RBC Hgb Hct MCV MCH MCHC RDW Plt Count MPV Neut % (Auto) Lymph % (Auto) [place] % (Auto) Eos % (Auto) Baso % (Auto) Neut # (Auto) Lymph # (Auto) [place] # (Auto) Eos # (Auto) Baso # (Auto) Nucleated RBC % (a uto) Nucleated RBCs # Sodium Potassium Chloride Carbon Dioxide Anion Gap BUN Creatinine Glucose POC Glucose Calculated Osmolal ity Calcium Magnesium 2.2 Vitals: Last Vital Signs Temp 97.8 F 04/10/20 08:00 Pulse 77 04/10/20 09:40 Resp 17 04/10/20 09:40 BP 163/65 04/10/20 08:00 Pulse Ox 100 04/10/20 09:40 Discharge Plan Discharge Patient Disposition: Home Health Service Condition: Stable Prescriptions: New nicotine 14 mg/24 hr Patch 24 Hour 1 patch transdermal DAILY Qty: 30 RF: 0 prednisone 20 mg Tablet 20 mg PO DAILY Qty: 8 RF: 0 doxycycline monohydrate 100 mg Tablet 100 mg PO BID Qty: 10 RF: 0 digoxin 125 mcg (0.125 mg) Tablet 125 mcg PO DAILY Qty: 30 RF: 0 metoprolol tartrate 25 mg Tablet 25 mg PO BID Qty: 60 RF: 0 nicotine (polacrilex) 2 mg lozenge 2 mg BUCCAL Q1H PRN (Reason: nicotine cravings) Qty: 72 RF: 1 Continued revefenacin 175 mcg/3 mL solution for nebulization 175 mcg INHALATION DAILY 90 Days Qty: 90 RF: 3 Perforomist 20 mcg/2 mL solution for nebulization 2 ml INHALATION Q12H 90 Days Qty: 120 RF: 3 budesonide [Pulmicort] 0.5 mg/2 mL suspension for nebulization 0.5 mg INHALATION BID 90 Days Qty: 360 RF: 3 lisinopril 20 mg Tablet 20 mg PO BEDTIME RF: 0 metoprolol succinate [Toprol XL] 50 mg Tablet Extended Release 24 Hr 50 mg PO DAILY RF: 0 trazodone 150 mg Tablet 150 mg PO BEDTIME RF: 0 fluticasone propion-salmeterol 250-50 mcg/dose blister with device 1 inh INHALATION BID RF: 0 albuterol sulfate 2.5 mg /3 mL (0.083 %) solution for nebulization 2.5 mg inhalation Q4H RF: 0 metformin 500 mg tablet extended release 24 hr 500 mg PO BID RF: 0 Eliquis 5 mg Tablet 5 mg PO BID Qty: 60 RF: 0 pantoprazole 40 mg tablet,delayed release (DR/EC) 40 mg PO RF: 0 escitalopram oxalate 20 mg tablet 20 mg RF: 0 Changed furosemide [Lasix] 20 mg tablet 20 mg PO DAILY PRN (Reason: Edema) 30 Days Qty: 30 RF: 0 amlodipine 10 mg Tablet 5 mg PO DAILY Qty: 30 RF: 0 Discharge Orders: Discharge Order (Routine); Ordered 04/10/20 Ordered By: Taras Castro Referrals: Sherin Lopez MD [Physician] - 2 weeks (Hx MS, not on treatment, recently worse tremors, functional decline, fatigue) Gabbie Romero MD [Physician] - 1 month (AFib w rvr, CHF) Alyce Dickinson FNP [Nurse Practitioner] - 1 week Dariela Cote MD [Physician] - 1 month (Due to Respiratory failure, we would like you to follow up with Dr. Cote in 1 month. On Sunday, please call and schedule that appointment) Jeferson Ardon APN [Primary Care Provider] - 4-7 days (On Sunday, please call [facility] to schedule a follow up with Reva Govea APN to be seen in 4 to 7 days) Discharge Diet: Diabetic Discharge Activity: Increase activity as tolerated, Oxygen as instructed and Cpap/Bipap as instructed Activity Restrictions/Additional Instructions: Please stop smoking, as it is absolutely detrimental to your breathing. Please note it is a severe fire hazard and risk of eller to smoke anywhere near oxygen. Your diuretic is at this time changed to only as needed dosing, take it if you notice significant swelling in lower extremities, weight gain of more than 3 pounds in 2 days, or noticed significant worsening in shortness of breath if you lay down flat on your back. Please monitor your heart rate and blood pressure 3 times daily, record values to bring to your appointment. Please maintain ventilator on with the new full facemask as changed by respiratory therapy here in the hospital, anytime you are asleep, at night or napping, or anytime you are short of breath. Please maintain oxygen otherwise by nasal cannula, and target saturation of 88%, no higher than 92%. If you experience symptoms of air hunger, anxiety, while your saturation is normal, please use anxiety medication to help relieve your symptoms. If you experience persistent chest pain, high fever, worsening shortness of breath and oxygen saturation despite treatment, persistently low blood pressure, high heart rate, or other abnormal symptoms, please seek medical attention without delay. 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
[2020-04-10 12:49] VITALS: O2SAT 72; O2SAT 95
--- NOTE | 2020-04-10 14:21 | PC.NURSE ---
pt's pharmacy is closed at this time.prescriptions phoned to [facility] [place] per daughter's request.
--- NOTE | 2020-04-10 14:23 | PC.NURSE ---
pt's trilogy machine and masks sent home with pt.pt's portable oxygen is empty.HOME contacted and they will bring o2 tank .
== END 2020-04-10 14:50 | disposition home health service (06) | DRG 189 ==
LOC: ER 04-07 03:11 → CSU 04-07 03:12
PROVIDERS: Emergency Medicine; Admitting Provider Student in an Organized Health Care Education/Training Program; PCP Nurse Practitioner Family; Visit Provider Internal Medicine
DX: J96.21 Acute and chronic respiratory failure with hypoxia (principal); I50.31 Acute diastolic (congestive) heart failure; J44.1 Chronic obstructive pulmonary disease with (acute) exacerbation; E87.1 Hypo-osmolality and hyponatremia; J96.22 Acute and chronic respiratory failure with hypercapnia; I48.91 Unspecified atrial fibrillation; F17.210 Nicotine dependence, cigarettes, uncomplicated; Z99.81 Dependence on supplemental oxygen; E11.9 Type 2 diabetes mellitus without complications; I11.0 Hypertensive heart disease with heart failure; E78.5 Hyperlipidemia, unspecified; F41.8 Other specified anxiety disorders; G35 Multiple sclerosis; I27.20 Pulmonary hypertension, unspecified; I07.1 Rheumatic tricuspid insufficiency; Z79.51 Long term (current) use of inhaled steroids; Z79.01 Long term (current) use of anticoagulants; Z79.891 Long term (current) use of opiate analgesic; E86.0 Dehydration; I95.9 Hypotension, unspecified
CPT/HCPCS: 12345; 36415; 36416; 36600; 71045; 80048; 80053; 80162; 82803; 82805; 82962; 83605; 83735; 83880; 84145; 84443; 84484; 85025; 93005; 94640; 94660; 96372; 96375; 97161; 97167; 97530; 97535; 99283; J1160; J1815; J1940; J2060; J2930; J3475; J3490; J7030; J7040; J7050; J7512; J7611; J7626

== ENCOUNTER → 2022-07-18 13:11 | Outpatient (BNVA) | payer MEDICARE, SELFPAY | PROVIDERS: PCP Nurse Practitioner Family; Visit Provider Internal Medicine Cardiovascular Disease | DX: I10 Essential (primary) hypertension (principal); I48.91 Unspecified atrial fibrillation; Z79.01 Long term (current) use of anticoagulants; R63.4 Abnormal weight loss; Z68.1 Body mass index [BMI] 19.9 or less, adult; F17.210 Nicotine dependence, cigarettes, uncomplicated | CPT/HCPCS: 99213; 99214 ==

== ENCOUNTER → 2023-01-23 15:39 | Outpatient (BNVA) | payer MEDICARE, SELFPAY | PROVIDERS: PCP Nurse Practitioner Family; Visit Provider Nurse Practitioner Family | DX: I10 Essential (primary) hypertension (principal); I48.91 Unspecified atrial fibrillation; I73.9 Peripheral vascular disease, unspecified; F17.210 Nicotine dependence, cigarettes, uncomplicated; Z79.01 Long term (current) use of anticoagulants | CPT/HCPCS: 36415; 80053; 80162; 85025; 93005; 99214 ==

== ENCOUNTER 2023-02-19 15:19 | Outpatient (CLI) | payer MEDICARE, SELFPAY ==
--- NOTE | 2023-02-19 15:15 | USCV_ITS ---
Wil Deidra Age: 77 Gender: F : 1945 Exam Date: 02/19/2023 15:51 Ordering Phys: Alyce Dickinson Technologist: Jean Carlos Belcher [place] [facility] [place]: hypotension, a fib BP: 90 / 50 HR: 125 Rhythm: Other Technical Quality: Suboptimal MEASUREMENTS (Male / Female) Normal Values 2D ECHO LV Diastolic Diameter PLAX 2.6 cm 4.2 - 5.9 / 3.9 - 5.3 cm LV Systolic Diameter PLAX 1.3 cm IVS Diastolic Thickness 1.1 cm 0.6 - 1.0 / 0.6 - 0.9 cm IVS Systolic Thickness 0.8 cm LVPW Diastolic Thickness 1.1 cm 0.6 - 1.0 / 0.6 - 0.9 cm LVPW Systolic Thickness 1.0 cm LVOT Diameter 2.0 cm LV Ejection Fraction 2D Teich 84.7 % LV Ejection Fraction MOD 2C 68.1 % LV Ejection Fraction 2C AL 66.8 % LA Diameter 3.0 cm LA Width 2.6 cm LA Height 3.5 cm RA Width 3.3 cm RA Height 3.6 cm Aorta at Sinotubular Diameter 2.2 cm IVC Diameter 1.8 cm M-MODE Aortic Annulus Diameter 2.3 cm LA Ao Ratio MM 1.3 MV E Point Septal Separation 0.6 cm DOPPLER AV Peak Velocity 105.0 cm/s LVOT Peak Velocity 72.0 cm/s AV Area Cont Eq vti 1.8 cm squared AV Area Cont Eq pk 2.2 cm squared MV Peak Velocity 100.0 cm/s MV Area PHT 10.0 cm squared MV E' Velocity 54.5 cm/s Mitral E to MV E' Ratio 8.4 Mitral E to LV E' Lateral Ratio 7.3 Mitral E to LV E' Septal Ratio 10.0 TR Peak Velocity 301.0 cm/s TR Peak Gradient 36.2 mmHg TR Mean Velocity 212.6 cm/s TR Mean Gradient 19.5 mmHg TR Velocity Time Integral 63.8 cm Right Atrial Pressure 10.0 mmHg Pulmonary Artery Systolic Pressu 46.2 mmHg RV Acceleration Time 0.1 s RV Ejection Time 0.3 s RV AcT/ET 0.3 FINDINGS Left Ventricle Normal left ventricular size and systolic function, EF 65 %. Patient was found to be in atrial fibrillation with rapid ventricular rate. Segmental wall motion analysis and ejection fraction estimation could be misleading because of this. Right Ventricle Mildly increased right ventricular size. Normal right ventricular systolic function. Right Atrium Moderately increased right atrial size. Left Atrium Mildly increased left atrial size. Mitral Valve Thickened mitral valve. Trace to m ild mitral valve regurgitation. Aortic Valve Thickened aortic valve. Tricuspid Valve [id number] tricuspid valve regurgitation. Estimated pulmonary artery peak systolic pressure 46 mmHg Pulmonic Valve Structurally normal pulmonic valve without significant stenosis. There is no pulmonic regurgitation. Pericardium Normal pericardium without effusion. Aorta Normal ascending aorta dimension. IVC Dilated IVC with decreased respiratory variation. Estimated RA pressure around 10 mmHg CONCLUSIONS Normal left ventricular size and systolic function, EF 65 %. Patient was found to be in atrial fibrillation with rapid ventricular rate. Segmental wall motion analysis and ejection fraction estimation could be misleading because of this. Mildly increased left atrial size. Moderately increased right atrial size. Kgke-pb-ckmfrpum tricuspid valve regurgitation. Estimated pulmonary artery peak systolic pressure 46 mmHg. Thickened aortic valve. Thickened mitral valve. Trace to m ild mitral valve regurgitation. Estimated RA pressure around 10 mmHg Compared to the study from 12/27/2019, there may not be a significant change Dr Wily Mayfield MD [facility] (Electronically Signed) Final Date: 27 February 2023 10:16 S
== END 2023-02-19 15:20 | disposition home or self-care (01) ==
PROVIDERS: PCP Nurse Practitioner Family; Visit Provider Nurse Practitioner Family
DX: I95.9 Hypotension, unspecified (principal); I48.91 Unspecified atrial fibrillation; I08.3 Combined rheumatic disorders of mitral, aortic and tricuspid valves
CPT/HCPCS: 93306

== ENCOUNTER → 2023-07-31 14:03 | Outpatient (BNVA) | payer MEDICARE, SELFPAY | PROVIDERS: PCP Nurse Practitioner Family; Visit Provider Internal Medicine Cardiovascular Disease | DX: I48.91 Unspecified atrial fibrillation (principal); I11.0 Hypertensive heart disease with heart failure; I50.9 Heart failure, unspecified; J44.1 Chronic obstructive pulmonary disease with (acute) exacerbation; J96.11 Chronic respiratory failure with hypoxia; J96.12 Chronic respiratory failure with hypercapnia; E11.9 Type 2 diabetes mellitus without complications; E78.5 Hyperlipidemia, unspecified; F17.210 Nicotine dependence, cigarettes, uncomplicated; Z79.01 Long term (current) use of anticoagulants; Z79.84 Long term (current) use of oral hypoglycemic drugs | CPT/HCPCS: 36415; 80048; 80162; 83880; 99214 ==

== ENCOUNTER → 2023-10-10 10:52 | Outpatient (BNVA) | payer MEDICARE, SELFPAY | PROVIDERS: PCP Nurse Practitioner Family; Visit Provider Internal Medicine Pulmonary Disease | DX: I10 Essential (primary) hypertension (principal); I48.91 Unspecified atrial fibrillation; J96.11 Chronic respiratory failure with hypoxia; J96.12 Chronic respiratory failure with hypercapnia; J44.9 Chronic obstructive pulmonary disease, unspecified; E11.9 Type 2 diabetes mellitus without complications; Z79.899 Other long term (current) drug therapy; J44.1 Chronic obstructive pulmonary disease with (acute) exacerbation; R05.3 Chronic cough; F17.210 Nicotine dependence, cigarettes, uncomplicated | CPT/HCPCS: 36415; 80048; 83036; 83735; 83880; 99204 ==

== ENCOUNTER → 2023-12-26 16:39 | Outpatient (BNVA) | payer MEDICARE, SELFPAY | PROVIDERS: PCP Nurse Practitioner Family; Visit Provider Internal Medicine Pulmonary Disease | DX: J44.1 Chronic obstructive pulmonary disease with (acute) exacerbation (principal); J96.11 Chronic respiratory failure with hypoxia; J96.12 Chronic respiratory failure with hypercapnia; Z72.0 Tobacco use; I50.9 Heart failure, unspecified; I95.2 Hypotension due to drugs; I10 Essential (primary) hypertension | CPT/HCPCS: 80048; 83880 ==

== ENCOUNTER → 2024-02-04 15:17 | Outpatient (BNVA) | payer MEDICARE, SELFPAY | PROVIDERS: PCP Nurse Practitioner Family; Visit Provider Internal Medicine Cardiovascular Disease | DX: R06.02 Shortness of breath; I48.91 Unspecified atrial fibrillation; E78.2 Mixed hyperlipidemia; Z72.0 Tobacco use; I10 Essential (primary) hypertension; I50.9 Heart failure, unspecified; E11.9 Type 2 diabetes mellitus without complications; Z79.4 Long term (current) use of insulin | CPT/HCPCS: 36415; 80048; 83880; 99214 ==

== ENCOUNTER → 2024-03-07 11:21 | Outpatient (BNVA) | payer MEDICARE, SELFPAY | PROVIDERS: PCP Nurse Practitioner Family; Visit Provider Internal Medicine Cardiovascular Disease | DX: I50.9 Heart failure, unspecified (principal); R06.02 Shortness of breath; I10 Essential (primary) hypertension | CPT/HCPCS: 80048; 83880 ==

== ENCOUNTER 2024-03-08 21:05 | Inpatient (IN) | payer MEDICARE, SELFPAY ==
[2024-03-08 21:07] VITALS: BP 172/114; PULSE 107; RESP 30; TEMP 36.1; O2SAT 87; BMI 14.3
--- NOTE | 2024-03-08 21:14 | XRR_ITS ---
PROCEDURE INFORMATION: Exam: XR Chest Exam date and time: 03/08/2024 9:22 PM Age: 78 years old Clinical indication: Patient HX: Cough; Hypoxia; AMS; Stroke like symptoms TECHNIQUE: Imaging protocol: Radiologic exam of the chest. Views: 1 view. COMPARISON: CR XR chest 1V portable [id number] 04/06/2020 11:44 PM FINDINGS: Lungs: Marked emphysema is unchanged. Minimal scarring in the left mid lung is unchanged. No focal pneumonia. Pleural spaces: No pleural effusion. No pneumothorax. Heart/Mediastinum: Stable heart size. Bones/joints: Stable bones. XR/XR chest 1V portable [id number] IMPRESSION: No acute findings.
--- NOTE | 2024-03-08 21:14 | CTR_ITS ---
PROCEDURE INFORMATION: Exam: CT Head Without Contrast Exam date and time: 03/08/2024 9:35 PM Age: 78 years old Clinical indication: Stroke-like symptoms; Speech disturbance and other: Seizure; Additional info: EMS arrival from [facility] for sudden onset of aphasia followed by seizure. Last known well time of 1930 hours. PT responsive to painful stimulus only. TECHNIQUE: Imaging protocol: Computed tomography of the head without contrast. Radiation optimization: All CT scans at this facility use at least one of these dose optimization techniques: automated exposure control; mA and/or kV adjustment per patient size (includes targeted exams where dose is matched to clinical indication); or iterative reconstruction. Other technique: STROKE PROTOCOL was implemented. COMPARISON: No relevant prior studies available. RADIATION DOSE METRICS: Total DLP (mGy-cm): 2069.75 FINDINGS: Brain: There are moderate involutional changes of the brain present. There is volume loss in the bilateral medial temporal lobes with associated prominence of the temporal horns of the lateral ventricles. No midline shift or mass effect. No acute infarcts seen by CT. No hemorrhage. Cerebral ventricles: There is diffuse enlargement of the ventricles especially posteriorly favored to represent ex vacuo phenomenon. Paranasal sinuses: No significant inflammation. No fluid levels. Mastoid air cells: No significant inflammation. Bones/joints: No acute fracture. Soft tissues: Unremarkable. CT/CT head thrombolytic [id number] IMPRESSION: 1. No acute intracranial abnormality. 2. Presumed ex vacuo prominence of the ventricles with medial temporal lobe volume loss suggesting possible Alzheimer's type dementia. Less likely differential diagnosis is NPH. ASSESSMENT: ASPECTS ([place] Stroke Program Early CT Score) is 10.
--- NOTE | 2024-03-08 21:15 | ECG_ITS ---
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 Measurements Intervals [place] Rate: 92 P: 0 NH: 0 QRS: 73 QRSD: 86 T: 96 QT: 308 QTc: 382 Interpretive Statements ATRIAL FIBRILLATION with significant baseline artifact SEPTAL MYOCARDIAL INFARCTION , OF INDETERMINATE AGE [40+ ms Q WAVE IN V1/V2] Compared to ECG 04/07/2020 02:50:00 Myocardial infarct finding now present Electronically Signed On 03-09-2024 8:13:35 CDT by Remigio Stovall M.D. [id number]
--- NOTE | 2024-03-08 21:18 | W.ED.GENADLT ---
HPI - General Adult General: Chief complaint: Neuro Symptoms/Deficit Stated complaint: POSSIBLE STROKE Time Seen by Provider: 03/08/24 21:14 Limitations: altered mental status History of Present Illness: Patient brought in by EMS for possible strokelike symptoms and witnessed seizure. Per EMS patient was sitting in a chair having conversation and suddenly was unable to get words out and then she had a witnessed tonic-clonic type seizure. By the time EMS got there patient was only responsive to painful stimuli and they witnessed another tonic-clonic type seizure. They gave the patient 5 mg of Versed and patient did not have any more seizures. Upon arrival to the ER patient is still only responsive to painful stimuli. Patient does have a history of dementia Review of Systems General: Reports: ROS unobtainable due to medical condition and ROS unobtainable due to mental status PFS ED PFSH: Medical History Weight loss Chest pain Multiple sclerosis Type 2 diabetes mellitus Anxiety and depression Hyperlipidemia Hypertension COPD (chronic obstructive pulmonary disease) Surgical History History of appendectomy Family History Other Diabetes Hypertension Social History Smoking and tobacco/nicotine status: current some day tobacco/nicotine user cigarettes Packs smoked per day: 0.15 [ Other cigarette details: Hx of 1 PDD x 60 Years] Quit status (tobacco/nicotine): considering quitting Alcohol intake: never Substance/Drug Use: never Lives independently: Yes Household members: spouse Marital status: Current occupational status: unemployed Do you think of yourself as: Straight/Heterosexual Current gender identity: Female Physical Exam Eye: OTHER: Pupils responsive to light bilaterally, Neck/C-Spine: COMMON NORMALS: no lymphadenopathy, supple and no JVD Chest: COMMONS NORMALS: normal inspection of the chest and normal palpation of entire chest wall Resp: COMMON NORMALS: normal respiratory effort, No retractions, No use of accessory muscles and clear to auscultation bilaterally AUSCULTATION: clear to auscultation bilaterally Cardio: COMMON NORMALS: no JVD, regular rate, regular rhythm, S1 normal heart sound present, S2 normal heart sound present, No gallops present (Cardio), No clicks present (Cardio) and No murmurs present (Cardio) RATE: regular rate RHYTHM: regular rhythm HEART SOUNDS: S1 normal heart sound present and S2 normal heart sound present GI: COMMON NORMALS: Normal to inspection, nondistended, normoactive bowel sounds present, Soft to palpation, non-tender, No hepatosplenomegaly present and no masses PALPATION: Yes Soft to palpation and Yes No hepatosplenomegaly present Extremity: NARRATIVE EXTREMITY EXAM: No bilateral lower extremity edema Neuro: OTHER: Responsive to painful stimuli only, Course Vital Signs: Vital signs: Vital Signs Temperature 97.0 F L 03/08/24 21:07 Pulse Rate 89 03/08/24 23:30 Respiratory Rate 30 H 03/08/24 21:07 Blood Pressure 172/114 03/08/24 21:07 Pulse Oximetry 98 03/08/24 23:30 Oxygen Delivery Me thod Room Air 03/08/24 21:07 Fraction of Inspir ed Oxygen 32 03/08/24 23:30 MDM - General Adult Medical Decision Making Patient presents to the ER responsive to only painful stimuli, with possible stroke and seizure activity patient was worked up in a standard fashion with labs, x-rays CT scans, no evidence of stroke was noted, lab work showed an elevated CO2 and a blood of 80. Patient was placed on BiPAP. Chest x-ray showed no acute findings. Patient was catheter urine did not produce any urine. Patient was bolused a liter of normal saline. During this process patient became arousable and actually started talking and was aware of her 2 daughters who were there. Dr. Man was consulted who agreed to place patient in ICU for further evaluation and treatment. Lab Data 03/08/24 21:20 03/08/24 21:20 Radiology Impressions Chest X-Ray 03/08/24 21:14 IMPRESSION: No acute findings. Head CT 03/08/24 21:14 IMPRESSION: 1. No acute intracranial abnormality. 2. Presumed ex vacuo prominence of the ventricles with medial temporal lobe volume loss suggesting possible Alzheimer's type dementia. Less likely differential diagnosis is NPH. ASSESSMENT: ASPECTS ([place] Stroke Program Early CT Score) is 10. Laboratory Results WBC 8.77 10^3/uL (3.29-11.43) 03/08/24 21:20 RBC 3.47 10^6/uL (3.85-5.65) L 03/08/24 21:20 Hgb 11.40 g/dL (11.27-16.99) 03/08/24 21:20 Hct 37.4 % (36-47) 03/08/24 21:20 MCV 107.8 fl (85-98) H 03/08/24 21:20 MCH 32.9 pg (27-33) 03/08/24 21:20 MCHC 30.5 g/dL (30-55) 03/08/24 21:20 RDW 12.0 % (12.1-15.1) L 03/08/24 21:20 Plt Count 264 10^3/cmm (157-399) 03/08/24 21:20 MPV 10.7 fL (7.4-10.4) H 03/08/24 21:20 Neut % (Auto) 69.6 % 03/08/24 21:20 Lymph % (Auto) 17.0 % 03/08/24 21:20 Hendricks % (Auto) 7.6 % 03/08/24 21:20 Eos % (Auto) 4.6 % 03/08/24 21:20 Baso % (Auto) 1.0 % 03/08/24 21:20 Neut # (Auto) 6.10 10^3/uL (1.8-7.7) 03/08/24 21:20 Lymph # (Auto) 1.5 10^3/uL (0.8-4.8) 03/08/24 21:20 Hendricks # (Auto) 0.7 10^3/uL (0.2-0.9) 03/08/24 21:20 Eos # (Auto) 0.4 10^3/uL (0.0-0.8) 03/08/24 21:20 Baso # (Auto) 0.1 10^3/uL (0.0-0.1) 03/08/24 21:20 Nucleated RBC % (auto) 0 % 03/08/24 21:20 Nucleated RBCs # 0.0 /100WBC 03/08/24 21:20 PT 13.60 SECONDS (12.1-14.9) 03/08/24 21:20 INR 1.01 (0.8-1.2) 03/08/24 21:20 APTT 34.5 SECONDS (23.9-36.7) 03/08/24 21:20 Specimen Type Arterial 03/09/24 00:38 Sample Site Brachial, right 03/09/24 00:38 ABG pH 7.35 (7.35-7.45) 03/09/24 00:38 ABG pCO2 74.4 mmHg (35-45) H* 03/09/24 00:38 ABG pO2 113.0 mmHg (80.0-100.0) H 03/09/24 00:38 ABG PO2/FiO2 Ratio 0 03/09/24 00:38 ABG HCO3 40.7 mmol/L (22-26) H 03/09/24 00:38 ABG O2 Saturation > 100.0 03/08/24 23:07 ABG Base Excess 12.7 mmol/L (-2.0-2.0) H 03/09/24 00:38 Bob Test N/a 03/09/24 00:38 Hematocrit 30.9 % (37-47) L 03/09/24 00:38 Hgb O2 Saturation 98.6 % (95-100) 03/08/24 23:07 Carboxyhemoglobin 0.9 %THgb (0.4-20.1) 03/08/24 23:07 Methemoglobin 0.9 % (0.4-1.5) 03/08/24 23:07 Total Hemoglobin 11.2 g/dL (12-16) L 03/08/24 23:07 Sodium 141.0 mmol/L (131-143) 03/08/24 23:07 Potassium 4.1 mmol/L (3.5-5.0) 03/08/24 23:07 Glucose 119.0 mg/dL (70-115) H 03/08/24 23:07 Ionized Calcium 1.2 mmol/L (1.1-1.4) 03/08/24 23:07 O2 Delivery Device Bipap 03/09/24 00:38 O2 Liters/Min 6.0 % 03/08/24 23:07 FiO2 32.0 % 03/09/24 00:38 Academic Support Assistant ID [email or web address] 03/09/24 00:38 Sodium 141 mmol/L (136-145) 03/08/24 21:20 Potassium 4.3 mmol/L (3.5-5.1) 03/08/24 21:20 Chloride 90 mmol/L (98-107) L 03/08/24 21:20 Carbon Dioxide 37 mmol/L (22-29) H 03/08/24 21:20 Anion Gap 18.3 (5-19) 03/08/24 21:20 BUN 21 mg/dL (8-23) 03/08/24 21:20 Creatinine 1.6 mg/dL (0.5-0.9) H 03/08/24 21:20 GFR Calculation Not Reportable 03/08/24 21:20 Glucose 101 mg/dL (65-115) 03/08/24 21:20 POC Glucose 140 mg/dL (70-110) H 03/08/24 22:18 Calculated Osmolality 295 mOsm/kg (285-295) 03/08/24 21:20 Calcium 9.9 mg/dL (8.5-10.5) 03/08/24 21:20 Magnesium 1.6 mg/dL (1.7-2.3) L 03/08/24 21:20 Total Bilirubin 0.2 mg/dL (0.15-1.2) 03/08/24 21:20 AST 16 U/L (0-32) 03/08/24 21:20 ALT 8 U/L (0-33) 03/08/24 21:20 Alkaline Phosphatase 96 U/L (35-105) 03/08/24 21:20 Troponin T Baseline 22 ng/L (0-10) H 03/08/24 21:20 Troponin T 120 Minute 21.85 ng/L (0-10) H 03/08/24 03:36 Delta Troponin T -0.15 ABS# (0-10) L 03/08/24 03:36 C-Reactive Protein 3.0 mg/L (0.0-4.9) 03/08/24 21:20 NT-Pro-B Natriuret Pep 5005 pg/mL (0-450) H 03/08/24 21:20 Total Protein 6.9 g/dL (6.6-8.7) 03/08/24 21:20 Albumin 4.3 g/dL (3.5-5.2) 03/08/24 21:20 Globulin 2.6 g/dL (1.3-4.6) 03/08/24 21:20 TSH 5.29 uIU/mL (0.27-4.20) H 03/08/24 21:20 Free T4 1.79 ng/dL (0.82-1.77) H 03/09/24 00:00 Free T3 3.6 PG/ML (2.0-4.4) 03/09/24 00:00 Prolactin 30.69 ng/mL (4.8-23.3) H 03/08/24 21:20 Urine Color Yellow (Yellow) 03/09/24 01:25 Urine Appearance Clear (CLEAR) 03/09/24 01:25 Urine pH 6 (5-7) 03/09/24 01:25 Ur Specific [place] 1.015 (1.005-1.030) 03/09/24 01:25 Urine Protein 1+ (Negative) H 03/09/24 01:25 Urine Glucose (UA) Norm (Normal) 03/09/24 01:25 Urine Ketones Negative (Negative) 03/09/24 01:25 Urine Blood Neg (Negative) 03/09/24 01:25 Urine Nitrate Negative (Negative) 03/09/24 01:25 Urine Bilirubin Neg (Negative) 03/09/24 01:25 Urine Urobilinogen Neg mg/dL (Negative) 03/09/24 01:25 Ur Leukocyte Esterase Trace (Negative) H 03/09/24 01:25 Urine RBC 0-4 /hpf (0-2) H 03/09/24 01:25 Urine WBC 5-10 /hpf (0-5) H 03/09/24 01:25 Ur Squamous Epith Cells 0-4 /hpf (0-5) H 03/09/24 01:25 Amorphous Sediment Not Reportable 03/09/24 01:25 Urine Bacteria Trace /hpf (NONE) 03/09/24 01:25 Urine Mucus Trace /hpf 03/09/24 01:25 Digoxin 1.3 ng/mL (0.6-1.2) H 03/08/24 21:20 Urine Opiates Screen Positive ng/mL (Negative) H 03/09/24 01:25 Ur Barbiturates Screen Negative ng/mL (Negative) 03/09/24 01:25 Ur Phencyclidine Scrn Negative ng/mL (Negative) 03/09/24 01:25 Ur Amphetamines Screen Negative ng/mL (Negative) 03/09/24 01:25 U Benzodiazepines Scrn Positive ng/mL (Negative) H 03/09/24 01:25 Urine Cocaine Screen Negative ng/mL (Negative) 03/09/24 01:25 U Marijuana (THC) Screen Negative ng/mL (Negative) 03/09/24 01:25 All radiology interpretation(s) finalized by discharge Discharge Plan Discharge Patient Disposition: Admitted As Inpatient Clinical Impression: Acute respiratory failure with hypoxia and hypercapnia, Seizure Altered mental status Qualifiers: Altered mental status type: unspecified Qualified Code(s): R41.82 - Altered mental status, unspecified Condition: Stable Coding Level of Care Code ED Batch Records Clerk for Pricilla Lui
[2024-03-08 22:00] VITALS: BP 144/54; PULSE 89; O2SAT 99
[2024-03-08 22:04] LABS: Basophils # 0.1 10^3/uL (0.0-0.1); Eosinophils # 0.4 10^3/uL (0.0-0.8); Eosinophils % 4.6 %; Hematocrit 37.4 % (36-47); Lymphocytes # 1.5 10^3/uL (0.8-4.8); Mean Corpuscular HGB Conc 30.5 g/dL (30-55); Mean Corpuscular Hemoglobin 32.9 pg (27-33); Mean Corpuscular Volume 107.8 fl (85-98); Mean Platelet Volume 10.7 fL (7.4-10.4); Monocytes # 0.7 10^3/uL (0.2-0.9); Monocytes % 7.6 %; Neutrophils % 69.6 %; Nucleated Red Blood Cells % 0 %; Platelet Count 264 10^3/cmm (157-399); Red Blood Count 3.47 10^6/uL (3.85-5.65); White Blood Count 8.77 10^3/uL (3.29-11.43)
[2024-03-08 22:18] LABS: INR 1.01 (0.8-1.2)
[2024-03-08 22:19] LABS: Partial Thromboplastin Time 34.5 SECONDS (23.9-36.7)
[2024-03-08 22:21] LABS: Glucose Point of Care 140 mg/dL (70-110)
[2024-03-08 22:23] LABS: Digoxin 1.3 ng/mL (0.6-1.2)
[2024-03-08 22:30] LABS: Troponin(5th) Baseline 22 ng/L (0-10)
[2024-03-08 22:41] LABS: Alanine Aminotransferase 8 U/L (0-33); Albumin Level 4.3 g/dL (3.5-5.2); Alkaline Phosphatase 96 U/L (35-105); Anion Gap 18.3 (5-19); Aspartate Amino Transferase 16 U/L (0-32); Blood Urea Nitrogen 21 mg/dL (8-23); Calcium 9.9 mg/dL (8.5-10.5); Carbon Dioxide 37 mmol/L (22-29); Chloride 90 mmol/L (98-107); Creatinine Clr Calc Pharmacy 18.8762; Globulin 2.6 g/dL (1.3-4.6); Glucose 101 mg/dL (65-115); Magnesium 1.6 mg/dL (1.7-2.3); NT Pro B Type Natriuretic Pept 5005 pg/mL (0-450); Osmolality Calculated 295 mOsm/kg (285-295); Potassium 4.3 mmol/L (3.5-5.1); Prolactin 30.69 ng/mL (4.8-23.3); Sodium 141 mmol/L (136-145); Thyroid Stimulating Hormone 5.29 uIU/mL (0.27-4.20); Total Bilirubin 0.2 mg/dL (0.15-1.2); Total Protein 6.9 g/dL (6.6-8.7)
[2024-03-08 23:00] VITALS: PULSE 93
[2024-03-08 23:18] LABS: ABG PH Result 7.35 (7.35-7.45); Arterial Blood Gas Hematocrit 34.3 % (37-47); Base Excess ABG 15.1 mmol/L (-2.0-2.0); Blood Gas Sample Site Brachial, left; Blood Gas Sample Type Arterial; Carboxyhemoglobin 0.9 %THgb (0.4-20.1); HGB O2 Sat 98.6 % (95-100); Ionized Calcium Level - ABG 1.2 mmol/L (1.1-1.4); Methemoglobin 0.9 % (0.4-1.5); Oxygen Device NC; Oxygen Saturation ABG > 100.0; PO2 FiO2 Ratio Arterial Blood 0; Potassium Level - ABG 4.1 mmol/L (3.5-5.0); Total Hemoglobin 11.2 g/dL (12-16)
[2024-03-08 23:19] LABS: ABG PCO2 80.8 mmHg (35-45)
[2024-03-08 23:30] VITALS: PULSE 89; RESP 16; O2SAT 98
[2024-03-08] MEDS: sodium chloride 0.9% 1,000 ML 999 ML IV (23:37)
[2024-03-09] VITALS (71 sets, daily range): BP systolic 83–171; BP diastolic 38–110; PULSE 64–114; RESP 13–27; TEMP 37.1; O2SAT 79–100; BMI 14.3
[2024-03-09 00:03] LABS: Troponin 5 2HR 21.85 ng/L (0-10)
--- NOTE | 2024-03-09 00:05 | P.HP_ITS ---
Providers/Chief Complaint 2 Admitting Physician: Heidy Man MD Primary Care Provider: Reva Goeva APN Chief Complaint: POSSIBLE STROKE History of Present Illness Deidra De La Torre is a 78 year old female with a past medical history of COPD, dementia, hypertension, A-fib on Eliquis and digoxin, was brought to the emergency room today due to complaints of seizure. Initially EMS was called to the house as patient became unresponsive in the middle of a conversation. By the time EMS arrived they noticed her to have 2 witnessed tonic-clonic type seizures. Patient has no known history of seizure disorder. She received 5 mg of Versed and was brought into the emergency room. Initially patient was obtunded, she was found to have a pCO2 of 80 (does have some chronic elevation), however did eventually start to wake up, answered basic questions though continued to be disoriented. She was aware of her whereabouts and the fact that her family was at bedside. CT of the head was negative for any acute intracranial findings. Noted prominent volume loss compatible with dementia. Review of Systems 2 General: Reports: ROS unobtainable due to mental status Medications/Allergies Home Medications Medication Instructions Recorded Confirmed Last Taken Type albuterol sulfate 2.5 mg/3 mL 2.5 mg inhalation Q4H 12/29/19 12/26/23 Unknown History (0.083 %) solution for nebulization metformin 500 mg tablet,extended 500 mg PO BID 12/29/19 12/26/23 04/06/20 07:00 History release 24 hr trazodone 150 mg tablet 150 mg PO BEDTIME 12/29/19 12/26/23 Unknown History metoprolol tartrate 25 mg tablet 25 mg PO BID #60 tabs 04/10/20 12/26/23 Unknown Rx nicotine 14 mg/24 hr daily 1 patch transdermal DAILY #30 ea 04/10/20 12/26/23 Unknown Rx transdermal patch pantoprazole 40 mg tablet,delayed 40 mg PO 04/10/20 12/26/23 Unknown History release apixaban 5 mg tablet (Eliquis) 2.5 mg PO BID 04/19/20 12/26/23 Unknown History lisinopril 10 mg tablet 10 mg PO DAILY 60 days #60 tabs 12/15/20 12/26/23 Unknown Rx cholecalciferol (vitamin D3) 10 10 mcg PO DAILY 07/18/22 12/26/23 Unknown History mcg (400 unit) tablet escitalopram oxalate 10 mg tablet 10 mg PO DAILY 07/18/22 12/26/23 Unknown History venlafaxine 37.5 mg 37.5 mg PO DAILY 07/18/22 12/26/23 Unknown History capsule,extended release 24 hr budesonide 0.5 mg/2 mL suspension 0.5 mg inhalation BID PRN 10/10/23 12/26/23 Unknown History for nebulization (Pulmicort) fluticasone 250 mcg-salmeterol 50 1 inh inhalation BID #60 ea 10/10/23 12/26/23 Unknown Rx mcg/dose blistr powdr for inhalation (Advair Diskus) formoterol fumarate 20 mcg/2 mL 2 ml inhalation BID #120 mL 10/10/23 12/26/23 Unknown Rx solution for nebulization (Perforomist) furosemide 20 mg tablet (Lasix) 10 mg PO .every other day 10/10/23 12/26/23 Unknown History amlodipine 2.5 mg tablet 2.5 mg PO DAILY #30 tabs 12/26/23 12/26/23 Unknown Rx digoxin 62.5 mcg (0.0625 mg) tablet 62.5 mcg PO DAILY #90 tabs 02/06/24 Unknown Rx Allergies Allergy/AdvReac Type Severity Reaction Status Date / Time Penicillins Allergy Intermediate Unknown Verified 02/04/24 13:56 PFSH Acute 2 PFSH: Medical History Weight loss Chest pain Multiple sclerosis Type 2 diabetes mellitus Anxiety and depression Hyperlipidemia Hypertension COPD (chronic obstructive pulmonary disease) Surgical History History of appendectomy Family History Other Diabetes Hypertension Social History Smoking and tobacco/nicotine status: current some day tobacco/nicotine user cigarettes Packs smoked per day: 0.15 [ Other cigarette details: Hx of 1 PDD x 60 Years] Quit status (tobacco/nicotine): considering quitting Alcohol intake: never Substance/Drug Use: never Lives independently: Yes Household members: spouse Marital status: Current occupational status: unemployed Do you think of yourself as: Straight/Heterosexual Current gender identity: Female Vitals/I&O/Wt Last Vital Signs Temp 97.0 F L 03/08/24 21:07 Pulse 89 03/08/24 23:30 Resp 30 H 03/08/24 21:07 BP 172/114 03/08/24 21:07 Pulse Ox 98 03/08/24 23:30 O2 Del Method Room Air 03/08/24 21:07 FiO2 32 03/08/24 23:30 Weight last 48 hrs Weight 42.638 kg Physical Exam 2 Narrative: General: No acute distress, AO x1 HEENT: PERRLA, pupils bilaterally equal and reactive, pallors not present Chest: Normal vesicular breath sounds, no added sounds, equal good air entry bilaterally CVS: S1-S2 regular, no murmurs, no tachycardia, no gallops, no rubs Abdomen: Soft, nontender, no organomegaly, bowel sounds present Neuro: Moving all extremities in bed, AO x1-2 Data 03/08/24 21:20 03/08/24 21:20 Other Labs: Radiology Impressions Chest X-Ray 03/08/24 21:14 IMPRESSION: No acute findings. Head CT 03/08/24 21:14 IMPRESSION: 1. No acute intracranial abnormality. 2. Presumed ex vacuo prominence of the ventricles with medial temporal lobe volume loss suggesting possible Alzheimer's type dementia. Less likely differential diagnosis is NPH. ASSESSMENT: ASPECTS (Terri Stroke Program Early CT Score) is 10. Laboratory Results WBC 8.77 10^3/uL (3.29-11.43) 03/08/24 21:20 RBC 3.47 10^6/uL (3.85-5.65) L 03/08/24 21:20 Hgb 11.40 g/dL (11.27-16.99) 03/08/24 21:20 Hct 37.4 % (36-47) 03/08/24 21:20 MCV 107.8 fl (85-98) H 03/08/24 21:20 MCH 32.9 pg (27-33) 03/08/24 21:20 MCHC 30.5 g/dL (30-55) 03/08/24 21:20 RDW 12.0 % (12.1-15.1) L 03/08/24 21:20 Plt Count 264 10^3/cmm (157-399) 03/08/24 21:20 MPV 10.7 fL (7.4-10.4) H 03/08/24 21:20 Neut % (Auto) 69.6 % 03/08/24 21:20 Lymph % (Auto) 17.0 % 03/08/24 21:20 Imperial % (Auto) 7.6 % 03/08/24 21:20 Eos % (Auto) 4.6 % 03/08/24 21:20 Baso % (Auto) 1.0 % 03/08/24 21:20 Neut # (Auto) 6.10 10^3/uL (1.8-7.7) 03/08/24 21:20 Lymph # (Auto) 1.5 10^3/uL (0.8-4.8) 03/08/24 21:20 [place] # (Auto) 0.7 10^3/uL (0.2-0.9) 03/08/24 21:20 Eos # (Auto) 0.4 10^3/uL (0.0-0.8) 03/08/24 21:20 Baso # (Auto) 0.1 10^3/uL (0.0-0.1) 03/08/24 21:20 Nucleated RBC % (auto) 0 % 03/08/24 21:20 Nucleated RBCs # 0.0 /100WBC 03/08/24 21:20 PT 13.60 SECONDS (12.1-14.9) 03/08/24 21:20 INR 1.01 (0.8-1.2) 03/08/24 21:20 APTT 34.5 SECONDS (23.9-36.7) 03/08/24 21:20 Specimen Type Arterial 03/09/24 00:38 Sample Site Brachial, right 03/09/24 00:38 ABG pH 7.35 (7.35-7.45) 03/09/24 00:38 ABG pCO2 74.4 mmHg (35-45) H* 03/09/24 00:38 ABG pO2 113.0 mmHg (80.0-100.0) H 03/09/24 00:38 ABG PO2/FiO2 Ratio 0 03/09/24 00:38 ABG HCO3 40.7 mmol/L (22-26) H 03/09/24 00:38 ABG O2 Saturation > 100.0 03/08/24 23:07 ABG Base Excess 12.7 mmol/L (-2.0-2.0) H 03/09/24 00:38 Bob Test N/a 03/09/24 00:38 Hematocrit 30.9 % (37-47) L 03/09/24 00:38 Hgb O2 Saturation 98.6 % (95-100) 03/08/24 23:07 Carboxyhemoglobin 0.9 %THgb (0.4-20.1) 03/08/24 23:07 Methemoglobin 0.9 % (0.4-1.5) 03/08/24 23:07 Total Hemoglobin 11.2 g/dL (12-16) L 03/08/24 23:07 Sodium 141.0 mmol/L (131-143) 03/08/24 23:07 Potassium 4.1 mmol/L (3.5-5.0) 03/08/24 23:07 Glucose 119.0 mg/dL (70-115) H 03/08/24 23:07 Ionized Calcium 1.2 mmol/L (1.1-1.4) 03/08/24 23:07 O2 Delivery Device Bipap 03/09/24 00:38 O2 Liters/Min 6.0 % 03/08/24 23:07 FiO2 32.0 % 03/09/24 00:38 Plating Tank Operator ID [email or web address] 03/09/24 00:38 Sodium 141 mmol/L (136-145) 03/08/24 21:20 Potassium 4.3 mmol/L (3.5-5.1) 03/08/24 21:20 Chloride 90 mmol/L (98-107) L 03/08/24 21:20 Carbon Dioxide 37 mmol/L (22-29) H 03/08/24 21:20 Anion Gap 18.3 (5-19) 03/08/24 21:20 BUN 21 mg/dL (8-23) 03/08/24 21:20 Creatinine 1.6 mg/dL (0.5-0.9) H 03/08/24 21:20 GFR Calculation Not Reportable 03/08/24 21:20 Glucose 101 mg/dL (65-115) 04/20/24 21:20 POC Glucose 140 mg/dL (70-110) H 03/08/24 22:18 Calculated Osmolality 295 mOsm/kg (285-295) 03/08/24 21:20 Calcium 9.9 mg/dL (8.5-10.5) 03/08/24 21:20 Magnesium 1.6 mg/dL (1.7-2.3) L 03/08/24 21:20 Total Bilirubin 0.2 mg/dL (0.15-1.2) 03/08/24 21:20 AST 16 U/L (0-32) 03/08/24 21:20 ALT 8 U/L (0-33) 03/08/24 21:20 Alkaline Phosphatase 96 U/L (35-105) 03/08/24 21:20 Troponin T Baseline 22 ng/L (0-10) H 03/08/24 21:20 Troponin T 120 Minute 21.85 ng/L (0-10) H 03/08/24 03:36 Delta Troponin T -0.15 ABS# (0-10) L 03/08/24 03:36 Troponin T Hi Sens 6Hr 24.26 ng/L (0-10) H 03/09/24 05:24 Troponin T Hi Sens 6Hr Delta 2.26 ng/L (0-12) 03/09/24 05:24 C-Reactive Protein 3.0 mg/L (0.0-4.9) 03/08/24 21:20 NT-Pro-B Natriuret Pep 5005 pg/mL (0-450) H 03/08/24 21:20 Total Protein 6.9 g/dL (6.6-8.7) 03/08/24 21:20 Albumin 4.3 g/dL (3.5-5.2) 03/08/24 21:20 Globulin 2.6 g/dL (1.3-4.6) 03/08/24 21:20 TSH 5.29 uIU/mL (0.27-4.20) H 03/08/24 21:20 Free T4 1.79 ng/dL (0.82-1.77) H 03/09/24 00:00 Free T3 3.6 PG/ML (2.0-4.4) 03/09/24 00:00 Prolactin 30.69 ng/mL (4.8-23.3) H 03/08/24 21:20 Urine Color Yellow (Yellow) 03/09/24 01:25 Urine Appearance Clear (CLEAR) 03/09/24 01:25 Urine pH 6 (5-7) 03/09/24 01:25 Ur Specific [place] 1.015 (1.005-1.030) 03/09/24 01:25 Urine Protein 1+ (Negative) H 03/09/24 01:25 Urine Glucose (UA) Norm (Normal) 03/09/24 01:25 Urine Ketones Negative (Negative) 03/09/24 01:25 Urine Blood Neg (Negative) 03/09/24 01:25 Urine Nitrate Negative (Negative) 03/09/24 01:25 Urine Bilirubin Neg (Negative) 03/09/24 01:25 Urine Urobilinogen Neg mg/dL (Negative) 03/09/24 01:25 Ur Leukocyte Esterase Trace (Negative) H 03/09/24 01:25 Urine RBC 0-4 /hpf (0-2) H 03/09/24 01:25 Urine WBC 5-10 /hpf (0-5) H 03/09/24 01:25 Ur Squamous Epith Cells 0-4 /hpf (0-5) H 03/09/24 01:25 Amorphous Sediment Not Reportable 03/09/24 01:25 Urine Bacteria Trace /hpf (NONE) 03/09/24 01:25 Urine Mucus Trace /hpf 03/09/24 01:25 Digoxin 1.3 ng/mL (0.6-1.2) H 03/08/24 21:20 Urine Opiates Screen Positive ng/mL (Negative) H 03/09/24 01:25 Ur Barbiturates Screen Negative ng/mL (Negative) 03/09/24 01:25 Ur Phencyclidine Scrn Negative ng/mL (Negative) 03/09/24 01:25 Ur Amphetamines Screen Negative ng/mL (Negative) 03/09/24 01:25 U Benzodiazepines Scrn Positive ng/mL (Negative) H 03/09/24 01:25 Urine Cocaine Screen Negative ng/mL (Negative) 03/09/24 01:25 U Marijuana (THC) Screen Negative ng/mL (Negative) 03/09/24 01:25 ABG Interpretation 1: 03/08/24 03/09/24 23:07 00:38 ABG pH 7.35 7.35 ABG pCO2 80.8 H* 74.4 H* ABG pO2 244.0 H 113.0 H ABG HCO3 44.0 H 40.7 H ABG O2 Saturation > 100.0 ABG Base Excess 15.1 H 12.7 H A&P Assessment and plan (1) Altered mental status: Qualifiers: Altered mental status type: unspecified Qualified Code(s): R41.82 - Altered mental status, unspecified (2) Seizure: (3) Chronic respiratory failure with hypoxia and hypercapnia: Plan 78-year-old lady with known dementia, chronic hypercapnic respiratory failure, brought to the emergency room today with 2 witnessed episodes of tonic-clonic seizures seizures by EMS followed thereafter by altered mental status. Overall clinical picture concerning for new onset seizure with postictal state. Review of ABG shows patient is hypercapnic. pH 7.35/pCO2 80.8/pO2 244/bicarb 44. In reviewing past numbers, it appears patient's pCO2 has chronically been between 69-74 previously. Possible that hypercapnia may have contributed today, however cannot be certain of this possibility given the chronicity. Started on BiPAP ventilation. With 1 hour of BiPAP use, pCO2 did start to trend down. Patient is currently awake, answers few simple questions though overall remains confused. Intermittent agitation for which Haldol as needed has been added. CT head unremarkable. Patient takes Eliquis at home, however no evidence of intracranial bleed at this time. He does have a history of atrial fibrillation. Will obtain MRI of the head to assess for any potential stroke that may have contributed to the new seizures. No fever, patient usual state of health prior to the events, less likely to be meningitis. Digoxin level tested, mildly elevated at 1.4. Will hold next dose. Admitted to ICU for close neurological and respiratory monitoring overnight N.p.o. until can be more awake, reliably take p.o. intake. Duoneb inhalation q6h and budesonide inhalation every 12 hrs DVT prophylaxis: SCDs until MRI, can resume Eliquis once no concern for acute CVA Attestations 2 Medical Necessity Statement*: > 2 midnight stay anticipated at this time Coding Level of Care Code Acute Code for Chg Fwd High MDM includes number and complexity of problems actively addressed during encounter, amount and/or complexity of data reviewed/ordered and described risk of complication, morbidity or mortality of management as documented Diagnoses Altered mental status R41.82 Altered mental status type: unspecified Seizure R56.9 Chronic respiratory failure with hypoxia and hypercapnia J96.11; J96.12
[2024-03-09 00:15] LABS: Troponin 5 2HR Delta -0.15 ABS# (0-10)
[2024-03-09] MEDS: levETIRAcetam 1,000 MG/100 ML PREMIX 400 MG IV (00:21)
[2024-03-09 00:47] LABS: Free T4 Free Thyroxine 1.79 ng/dL (0.82-1.77); T3 Free 3.6 PG/ML (2.0-4.4)
[2024-03-09 00:49] LABS: ABG PH Result 7.35 (7.35-7.45); Arterial Blood Gas Hematocrit 30.9 % (37-47); Base Excess ABG 12.7 mmol/L (-2.0-2.0); Blood Gas Sample Site Brachial, right; Blood Gas Sample Type Arterial; HCO3 ABG 40.7 mmol/L (22-26); Oxygen Device BIPAP; PO2 FiO2 Ratio Arterial Blood 0
[2024-03-09 00:50] LABS: ABG PCO2 74.4 mmHg (35-45)
[2024-03-09 01:45] LABS: Add Urine Microscopic? YES; Bacteria Urine TRACE /hpf; Bilirubin Urine Neg (Negative); Blood Urine Neg (Negative); Glucose Urine UA Norm (Normal); Ketones Urine Negative (Negative); Leukocyte Esterase Urine Trace (Negative); Mucus Urine TRACE /hpf; Nitrate Urine Negative (Negative); Protein Urine 1+ (Negative); RBC Urine 0-4 /hpf (0-2); Specific Gravity, Urine 1.015 (1.005-1.030); Squamous Epithelial Cell Urine 0-4 /hpf (0-5); Urine Appearance Clear (CLEAR); Urine Color Yellow (Yellow); Urobilinogen Urine Neg (Negative); pH Urine 6 (5-7)
[2024-03-09 01:46] LABS: Amphetamines Screen Urine Negative (Negative); Barbiturates Screen Urine Negative (Negative); Benzodiazepines Screen Urine Positive (Negative); Cocaine Screen Urine Negative (Negative); Opiate Screen Urine Positive (Negative); PCP Screen Urine Negative (Negative); THC Screen Urine Negative (Negative)
[2024-03-09] MEDS: ipratropium-albuterol 3 mL Neb INHALATION ×3 (02:44→19:42)
--- NOTE | 2024-03-09 03:15 | ECG_ITS ---
[facility] Test Date: 2024-03-09 Pat Name: Deidra De La Torre Department: Room: Gender: Female Wet Chemistry Analyst: : 1945 Requested By: Mhoan Bhatia Order Number: [id number] Rasta MD: Remigio Stovall M.D. Measurements Intervals [place] Rate: 108 P: 0 [place]: 0 QRS: 44 QRSD: 78 T: 24 QT: 353 QTc: 474 Interpretive Statements ATRIAL FIBRILLATION WITH RAPID VENTRICULAR RESPONSE POSSIBLE RIGHT VENTRICULAR CONDUCTION DELAY [RSR (QR) IN V1/V2] NONSPECIFIC T-WAVE ABNORMALITY ABNORMAL RHYTHM ECG Compared to ECG 03/08/2024 21:55:52 T-wave abnormality now present Myocardial infarct finding no longer present Electronically Signed On 03-09-2024 8:18:03 CDT by Remigio Stovall M.D. [email or web address]
[2024-03-09] MEDS: haloperidol inj 5 mg/mL INJ 1 mL IM (05:07)
--- NOTE | 2024-03-09 05:07 | PC.NURSE ---
pt care pt became aggressive and increasingly confused. pt took off mask, pt tried to get out of bed. pt keeps stating 'I'm dying daddy' 'get me up' 'please help me'
--- NOTE | 2024-03-09 05:33 | ECG_ITS ---
[facility] Test Date: 2024-03-09 Pat Name: Deidra De La Torre Department: Room: EDIP Gender: Female Kettle Fry Cook Operator: : 1945 Requested By: Heidy Man Order Number: [id number] Rasta MD: Remigio Stovall M.D. Measurements Intervals [place] Rate: 90 P: 0 [place]: 0 QRS: 70 QRSD: 81 T: 81 QT: 298 QTc: 365 Interpretive Statements ATRIAL FIBRILLATION POSSIBLE RIGHT VENTRICULAR CONDUCTION DELAY [RSR (QR) IN V1/V2] SEPTAL MYOCARDIAL INFARCTION , OF INDETERMINATE AGE [40+ ms Q WAVE IN V1/V2] Compared to ECG 03/09/2024 00:12:55 Myocardial infarct finding now present T-wave abnormality no longer present Electronically Signed On 03-09-2024 8:19:48 CDT by Remigio Stovall M.D. [email or web address]
[2024-03-09 06:05] LABS: Troponin 5 6HR 24.26 ng/L (0-10); Troponin 5 6HR Delta 2.26 ng/L (0-12)
--- NOTE | 2024-03-09 06:13 | MRR_ITS ---
PROCEDURE INFORMATION: Exam: MR Head Without Contrast Exam date and time: 03/09/2024 1:03 PM Age: 78 years old Clinical indication: Altered mental status/memory loss; Confusion or disorientation; Patient HX: New onset seizures, HX of ms 20+ years, dementia; Additional info: New onset seizures, new onset witnessed seizures. Assess for stroke TECHNIQUE: Imaging protocol: Magnetic resonance imaging of the head without contrast. COMPARISON: CT head thrombolytic [id number] 03/08/2024 9:35 PM FINDINGS: Limitations: Suboptimal evaluation of multiple sequences secondary to patient motion. Brain: No areas of reduced diffusion to suggest acute infarct. Moderate nonspecific periventricular and subcortical T2 hyperintensity which may be related to microvascular ischemic changes. Cerebral ventricles: The ventricles and sulci are prominent in size compatible with moderate atrophy. Bones/joints: Unremarkable. Paranasal sinuses: Well aerated. No fluid levels. Mastoid air cells: Normal as visualized. No mastoid effusion. Orbital cavities: Orbits and globes are intact. Soft tissues: Unremarkable. MR/MR head wo con* [id number] IMPRESSION: Motion limited study. No acute infarct.
[2024-03-09] MEDS: dexmedeTOMIDine 0.9 % NaCL 400 MCG/100 ML PREMIX 1.07000000000000006 MCG IV (08:27)
[2024-03-09 08:39] LABS: Basophils % 0.5 %; Eosinophils # 0.1 10^3/uL (0.0-0.8); Eosinophils % 1.6 %; Hematocrit 31.2 % (36-47); Lymphocytes # 0.9 10^3/uL (0.8-4.8); Lymphocytes % 11.3 %; Mean Corpuscular HGB Conc 31.1 g/dL (30-55); Mean Corpuscular Hemoglobin 32.8 pg (27-33); Mean Corpuscular Volume 105.4 fl (85-98); Mean Platelet Volume 10.5 fL (7.4-10.4); Monocytes # 0.5 10^3/uL (0.2-0.9); Monocytes % 6.3 %; Neutrophils # 6.11 10^3/uL (1.8-7.7); Nucleated Red Blood Cells % 0 %; Platelet Count 207 10^3/cmm (157-399); Red Blood Count 2.96 10^6/uL (3.85-5.65); White Blood Count 7.63 10^3/uL (3.29-11.43)
[2024-03-09 09:01] LABS: Alanine Aminotransferase 8 U/L (0-33); Albumin Level 3.7 g/dL (3.5-5.2); Alkaline Phosphatase 75 U/L (35-105); Anion Gap 12.3 (5-19); Aspartate Amino Transferase 25 U/L (0-32); Blood Urea Nitrogen 19 mg/dL (8-23); Calcium 9.3 mg/dL (8.5-10.5); Carbon Dioxide 37 mmol/L (22-29); Chloride 95 mmol/L (98-107); Creatinine Clr Calc Pharmacy 18.8762; Globulin 2.4 g/dL (1.3-4.6); Glucose 106 mg/dL (65-115); Iron 56 ug/dL (37-145); Osmolality Calculated 293 mOsm/kg (285-295); Percent Saturation 24.6 % (20-50); Potassium 4.3 mmol/L (3.5-5.1); Sodium 140 mmol/L (136-145); Total Bilirubin 0.3 mg/dL (0.15-1.2); Total Iron Binding Capacity 227 mcg/dl; Total Protein 6.1 g/dL (6.6-8.7); Unsaturated Iron Binding 171 ug/dL (112-347)
[2024-03-09 09:15] LABS: Vitamin B12 397 pg/mL (232-1245)
--- NOTE | 2024-03-09 09:40 | PC.NURSE ---
patient's daughter is currently sitting at bedside and states she will remain here for the entire day so the 1:1 sitter is not currently necessary
[2024-03-09] MEDS: escitalopram 10 mg Tablet 30 MG PO (09:55)
[2024-03-09] MEDS: lisinopril 10 mg Tablet PO (09:55)
[2024-03-09] MEDS: metoprolol tartrate 25 mg Tablet PO ×2 (09:55→18:02)
[2024-03-09] MEDS: pantoprazole DR 40 mg Tablet PO (09:56)
[2024-03-09] MEDS: nicotine 14 mg Patch 1 PATCH TRANSDERMA (09:56)
[2024-03-09] MEDS: amlodipine 5 mg Tablet 2.5 MG PO (09:56)
[2024-03-09] MEDS: haloperidol inj 5 mg/mL INJ 1 mL 1 MG IM (12:34)
--- NOTE | 2024-03-09 13:21 | PM.PN ---
Subjective Subjective: Admitted overnight. H&P and labs appreciated. Seen with multiple family members at bedside. Patient is on Precedex drip at 0.1 in ICU. Patient laying comfortably in bed, on waking up seems slightly confused but able to recognize everybody around unable to have some conversation and is directable. Patient has not had any further episode of seizure during hospitalization. Has remained hemodynamically stable and afebrile. Trying to get out of bed few times to urinate. Vitals/I&O/Wt Last Vital Signs Temp 97.0 F L 03/08/24 21:07 Pulse 80 03/09/24 05:15 Resp 22 H 03/09/24 05:15 BP 110/63 03/09/24 05:15 Pulse Ox 100 03/09/24 05:15 O2 Del Method BiPAP 03/09/24 04:00 FiO2 32 03/09/24 02:44 03/08/24 03/09/24 03/09/24 22:59 06:59 14:59 Intake Total 732.6 / 732.6 Balance 732.6 / 732.6 Weight last 48 hrs Weight 42.638 kg Weight 42.638 kg Physical Exam Narrative: General: No acute distress, AO x 1-2, able to have conversation with some confusion, directable, frail-appearing cachectic HEENT: PERRLA, pupils bilaterally equal and reactive, pallors not present Chest: Normal vesicular breath sounds, no added sounds, equal good air entry bilaterally CVS: S1-S2 regular, no murmurs, no tachycardia, no gallops, no rubs Abdomen: Soft, nontender, no organomegaly, bowel sounds present Neuro: Moving all extremities in bed, AO x1-2 Data 03/09/24 08:18 03/09/24 08:18 A&P Assessment and plan (1) Altered mental status: Qualifiers: Altered mental status type: unspecified Qualified Code(s): R41.82 - Altered mental status, unspecified (2) Seizure: (3) Chronic respiratory failure with hypoxia and hypercapnia: (4) Atrial fibrillation: Qualifiers: Atrial fibrillation type: unspecified Qualified Code(s): I48.91 - Unspecified atrial fibrillation (5) CHF (congestive heart failure): Qualifiers: Heart failure chronicity: unspecified Heart failure type: unspecified Qualified Code(s): I50.9 - Heart failure, unspecified (6) Hypertension: Qualifiers: Hypertension type: primary hypertension Qualified Code(s): I10 - Essential (primary) hypertension (7) Type 2 diabetes mellitus: Qualifiers: Diabetes mellitus complication status: without complication Diabetes mellitus terminal gauger supervisor insulin use: with terminal gauger supervisor use Qualified Code(s): E11.9 - Type 2 diabetes mellitus without complications; Z79.4 - retirement (current) use of insulin (8) CKD (chronic kidney disease) stage 3, GFR 30-59 ml/min: Plan 78-year-old lady with known dementia, multiple sclerosis not on treatment, chronic hypercapnic respiratory failure, brought to the emergency room today with 2 witnessed episodes of tonic-clonic seizures seizures by EMS followed thereafter by altered mental status. Patient still slightly confused. Cannot rule out postictal status versus worsening dementia. As per patient's daughter she is dependent on the daughters for some ADLs chronically, he is usually able to have some conversation. No history of seizures in the past. Appreciate CT head. Concerning for loss of volume. MRI head awaited. Patient moving all limbs, no concerns for stroke for now. Fall precaution, seizure precaution, aspiration precaution. Unlikely hypercapnic seizure. Patient's CO2 and pH seem to be at baseline. Electrolytes within normal limits, no concerns for hypoglycemia or hyponatremia. UDS positive for benzo and opitares. Stroke could be in the setting of neurodegenerative dementia. Continue to monitor. Hold off on any antiepileptics for now. Patient will most likely need an EEG depending on the clinical picture either inpatient or outpatient. Could be worsening MS. Patient in the past did not tolerate treatment for MS. Check ESR, CRP, respiratory viral panel. Altered mental status could be in the setting of worsening dementia. Uptitrate dose of Lexapro to 20 mg daily, and donepezil 5 mg nightly. Haldol 1 milligrams IM every 4 hours as needed, Precedex drip for now. Frequent reorientation. Atrial fibrillation: Rate controlled. Digoxin level slightly elevated. Hold off on digoxin tonight. Repeat digoxin level in 2 days and then restart digoxin accordingly. Continue with home dose of metoprolol. Continue with home dose of Eliquis. Hypertension: Goal blood pressure less than 140/90 mmHg. Continue with home dose of antihypertensive. If needed will uptitrate the medications as per goals. COPD: Chronic hypercapnic and hypoxic respiratory failure: Repeat ABG. For now pH, pCO2 and O2 seems to be at baseline. Nebulization treatment. No concerns for exacerbation for now. CKD: Baseline creatinine seems to be 1.4-1.8. Currently 1.6. Monitor CMP daily. Congestive heart failure: Baseline echocardiogram last year showed an EF of 65% with mildly increased LA size, increased RV size, mild to moderate TR with PASP of 46 mmHg. Eliquis for DVT prophylaxis NPO. Start diet as per speech therapy. NS at 30 cc/h. Watch for fluid overload. Protonix for PUD prophylaxis. CODE STATUS: Discussed in detail with patient's daughter at bedside. Patient's and daughters will be the DPOA. They do not want any heroic measures including chest compressions or being on mechanical ventilator. DNR/DNI. Attestations Medical Necessity Statement*: Requires further hospitalization for management of altered mental status most likely in setting of worsening dementia and baseline MS while sEizure disorder is ruled out Coding Level of Care Code Acute Code for Chg Fwd Diagnoses Altered mental status R41.82 Altered mental status type: unspecified Seizure R56.9 Chronic respiratory failure with hypoxia and hypercapnia J96.11; J96.12 Atrial fibrillation I48.91 Atrial fibrillation type: unspecified Congestive heart failure, unspecified HF chronicity, unspecified heart failure type I50.9 Heart failure chronicity: unspecified Heart failure type: unspecified Primary hypertension I10 Hypertension type: primary hypertension Type 2 diabetes mellitus without complication, with long-term current use of insulin E11.9; Z79.4 Diabetes mellitus complication status: without complication Diabetes mellitus mcc insulin use: with terminal gauger supervisor use CKD (chronic kidney disease) stage 3, GFR 30-59 ml/min N18.30
[2024-03-09 16:02] LABS: Adenovirus Not Detected (NOT DETECT); Chlamydia Pneumoniae Not Detected (NOT DETECT); Coronavirus 229E,HKU1,NL63,OC4 Not Detected (NOT DETECT); Human Metapneumovirus Not Detected (NOT DETECT); Human Rhinovirus/Enterovirus Not Detected (NOT DETECT); Influenza A Not Detected (NOT DETECT); Influenza A H1 Not Detected (NOT DETECT); Influenza A H1-2009 Not Detected (NOT DETECT); Influenza A H3 Not Detected (NOT DETECT); Influenza B Not Detected (NOT DETECT); Mycoplasma Pneumoniae Not Detected (NOT DETECT); Parainfluenza Virus Type 1 Not Detected (NOT DETECT); Parainfluenza Virus Type 2 Not Detected (NOT DETECT); Parainfluenza Virus Type 3 Not Detected (NOT DETECT); Parainfluenza Virus Type 4 Not Detected (NOT DETECT); Respiratory Syncytial Virus A Not Detected (NOT DETECT); Respiratory Syncytial Virus B Not Detected (NOT DETECT); SARS-COV-2 Not Detected (NOT DETECT)
[2024-03-09] MEDS: sodium chloride 0.9% 1,000 ML 30 ML IV (17:01)
[2024-03-09] MEDS: donepezil 5 MG Tablet PO (20:55)
[2024-03-10] VITALS (100 sets, daily range): BP systolic 87–175; BP diastolic 48–131; PULSE 57–145; RESP 6–28; TEMP 36.6–37.1; O2SAT 73–100
[2024-03-10] MEDS: dexmedeTOMIDine 0.9 % NaCL 400 MCG/100 ML PREMIX 6.40000000000000036 MCG IV (01:47)
[2024-03-10 05:40] LABS: Basophils % 0.5 %; Eosinophils # 0.1 10^3/uL (0.0-0.8); Eosinophils % 0.8 %; Hematocrit 30.2 % (36-47); Lymphocytes # 0.9 10^3/uL (0.8-4.8); Lymphocytes % 14.2 %; Mean Corpuscular HGB Conc 31.1 g/dL (30-55); Mean Corpuscular Hemoglobin 32.4 pg (27-33); Mean Corpuscular Volume 104.1 fl (85-98); Mean Platelet Volume 10.8 fL (7.4-10.4); Monocytes # 0.4 10^3/uL (0.2-0.9); Monocytes % 6.6 %; Neutrophils # 4.97 10^3/uL (1.8-7.7); Neutrophils % 77.6 %; Nucleated Red Blood Cells % 0 %; Platelet Count 199 10^3/cmm (157-399); Red Cell Distribution Width 12.2 % (12.1-15.1)
[2024-03-10 05:58] LABS: Magnesium 1.5 mg/dL (1.7-2.3)
[2024-03-10 06:00] LABS: Alanine Aminotransferase 13 U/L (0-33); Albumin Level 3.8 g/dL (3.5-5.2); Alkaline Phosphatase 96 U/L (35-105); Anion Gap 10.1 (5-19); Aspartate Amino Transferase 30 U/L (0-32); Blood Urea Nitrogen 19 mg/dL (8-23); Calcium 9.3 mg/dL (8.5-10.5); Carbon Dioxide 39 mmol/L (22-29); Chloride 93 mmol/L (98-107); Creatinine Clr Calc Pharmacy 21.4625; Globulin 2.4 g/dL (1.3-4.6); Glucose 169 mg/dL (65-115); Osmolality Calculated 290 mOsm/kg (285-295); Potassium 5.1 mmol/L (3.5-5.1); Sodium 137 mmol/L (136-145); Total Bilirubin 0.4 mg/dL (0.15-1.2); Total Protein 6.2 g/dL (6.6-8.7)
[2024-03-10 06:19] LABS: Folate Level 7.7 ng/mL (4.8-37.3)
[2024-03-10] MEDS: budesonide 0.5 mg/2 mL Neb INHALATION (09:17)
[2024-03-10] MEDS: ipratropium-albuterol 3 mL Neb INHALATION ×3 (09:18→19:51)
[2024-03-10] MEDS: pantoprazole DR 40 mg Tablet PO (09:18)
[2024-03-10] MEDS: amlodipine 5 mg Tablet 2.5 MG PO (09:18)
[2024-03-10] MEDS: lisinopril 10 mg Tablet PO (09:18)
[2024-03-10] MEDS: escitalopram 10 mg Tablet 20 MG PO (09:18)
[2024-03-10] MEDS: nicotine 14 mg Patch 1 PATCH TRANSDERMA (09:19)
[2024-03-10] MEDS: metoprolol tartrate 25 mg Tablet PO ×2 (09:19→17:52)
[2024-03-10] MEDS: magnesium sulfate premix 2 GM/50 ML PIGGYBACK IV (10:20)
[2024-03-10 10:29] LABS: Digoxin 1.1 ng/mL (0.6-1.2)
--- NOTE | 2024-03-10 20:48 | P.PN_ITS ---
Subjective 2 Subjective: She is much more awake and alert today per family. She is oriented to place, she is not usually oriented to year and asked to keep track of it by writing it down. She is recognizing family members. Still has some difficulties following directions, but overall she is doing better. She is hungry and patient and family request to get her started on more solid food. Discussed risks of aspiration, they understand, she states will exercise caution with aspiration precautions. Vitals/I&O/Wt Last Vital Signs Temp 98.8 F 03/10/24 19:30 Pulse 118 H 03/10/24 20:30 Resp 23 H 03/10/24 20:30 BP 175/131 03/10/24 20:30 Pulse Ox 94 03/10/24 20:15 O2 Del Method Nasal Cannula 03/10/24 19:51 O2 Flow Rate 1 03/10/24 19:51 FiO2 32 03/10/24 16:30 03/10/24 03/10/24 03/10/24 06:59 14:59 22:59 Intake Total 655.147 / 691.002 409.244 / 919.758 6766.063 / 2173.307 Output Total 40 / 40 Balance 655.147 / 691.002 369.244 / 562.416 3957.063 / 2133.307 Weight last 48 hrs Weight 45.45 kg Weight 42.638 kg Weight 42.638 kg Physical Exam 2 Narrative: Multiple family at bedside including son and daughter. Const: COMMON NORMALS: alert; negative for patient oriented x3 GENERAL APPEARANCE: cooperative O RIENTATION/CONSCIOUSNESS: Yes awake HENMT: COMMON NORMALS: oropharynx normal Neck/C-Spine: COMMON NORMALS: no JVD Resp: COMMON NORMALS: normal respiratory effort and clear to auscultation bilaterally AUSCULTATION: clear to auscultation bilaterally Cardio: COMMON NORMALS: no JVD, regular rhythm, S1 normal heart sound present, S2 normal heart sound present and No murmurs present (Cardio) RHYTHM: regular rhythm HEART SOUNDS: S1 normal heart sound present and S2 normal heart sound present GI: COMMON NORMALS: Normal to inspection, nondistended, normoactive bowel sounds present, Soft to palpation and non-tender PALPATION: Yes Soft to palpation Extremity: COMMON NORMALS: no joint enlargement and no pedal edema Neuro: COMMON NORMALS: moves all extremities; negative for patient oriented x3 SENSORIUM/ORIENTATION: Yes alert OTHER: Has difficulty following commands. I do not appreciate facial droop. Dysarthria or aphasia. Appears to be able to track horizontally. Cannot assess visual mejia. Sensation appears symmetrical. Possibly no drift. Skin: COMMON NORMALS: no rashes or lesions noted GENERAL SKIN EXAM: no rashes or lesions noted Data 03/10/24 05:00 03/10/24 05:00 A&P Assessment and plan (1) Altered mental status: Qualifiers: Altered mental status type: unspecified Qualified Code(s): R41.82 - Altered mental status, unspecified (2) Seizure: (3) Chronic respiratory failure with hypoxia and hypercapnia: (4) Atrial fibrillation: Qualifiers: Atrial fibrillation type: unspecified Qualified Code(s): I48.91 - Unspecified atrial fibrillation (5) CHF (congestive heart failure): Qualifiers: Heart failure type: unspecified Heart failure chronicity: unspecified Qualified Code(s): I50.9 - Heart failure, unspecified (6) Hypertension: Qualifiers: Hypertension type: primary hypertension Qualified Code(s): I10 - Essential (primary) hypertension (7) Type 2 diabetes mellitus: Qualifiers: Diabetes mellitus senior living insulin use: with keno terminal operator use Diabetes mellitus complication status: without complication Qualified Code(s): E11.9 - Type 2 diabetes mellitus without complications; Z79.4 - terminologist (current) use of insulin (8) CKD (chronic kidney disease) stage 3, GFR 30-59 ml/min: Plan 78-year-old lady with known dementia, multiple sclerosis not on treatment, chronic hypercapnic respiratory failure, brought to the emergency room today with 2 witnessed episodes of tonic-clonic seizures seizures by EMS followed thereafter by altered mental status. Acute neurogenic encephalopathy following seizures: She is much more alert today. Seems to be at baseline orientation. Some difficulty following commands, although per family appears to be close to or at her usual self. Recognizes family members. Reviewed vitals CBC, CMP, head MRI. Digoxin level. Magnesium. Follow-up with neurology in office for additional recommendations, additional assessment, consideration of repeat MRI with contrast study, would benefit from referral for outpatient EEG at discharge, given underlying MS, consideration of possible seizure focus, correct electrolytes, given magnesium. Patient and family requesting resume diet. Resumed soft and bite sized foods, thin liquids. Discussed with speech therapist. Weaned off Precedex. Unlikely hypercapnic seizure. Patient's CO2 and pH seem to be at baseline. Discussed with her batter mixer helper. Add Xanax as needed for anxiety/air hunger. Electrolytes within normal limits, no concerns for hypoglycemia or hyponatremia. UDS positive for benzo and opitares. Seizure in the setting of neurodegenerative dementia? Continue to monitor. Discussed consideration of antiepileptics, risks of recurrent seizure, risks with antiepileptics including to her balance, mental status. Could be worsening MS. Patient in the past did not tolerate treatment for MS. Reviewed respiratory viral panel, negative. Altered mental status could be in the setting of worsening dementia. Lexapro to 20 mg daily, and donepezil 5 mg nightly. Haldol 1 milligrams IM every 4 hours as needed, weaned off Precedex drip for now. Frequent reorientation. Transferred to medical surgical floor. Atrial fibrillation: Rate controlled. Repeat digoxin level requested. Noted down to 1.1, now therapeutic. Resume digoxin. Monitor for any signs of toxicity. Monitor on telemetry. Recheck chemistry. Continue with home dose of metoprolol. Continue with home dose of Eliquis. Hypertension: Goal blood pressure less than 140/90 mmHg. Continue with home dose of antihypertensive. If needed will uptitrate the medications as per goals. COPD: Chronic hypercapnic and hypoxic respiratory failure: Repeat ABG. For now pH, pCO2 and O2 seems to be at baseline. Nebulization treatment. No concerns for exacerbation for now. CKD: Baseline creatinine seems to be 1.4-1.8. Currently 1.5. Monitor CMP daily. Congestive heart failure: Stop IVF. Lasix were increased as outpatient to daily dosing. Baseline echocardiogram last year showed an EF of 65% with mildly increased LA size, increased RV size, mild to moderate TR with PASP of 46 mmHg. Eliquis for DVT prophylaxis Protonix for PUD prophylaxis. CODE STATUS: DPatient's and daughters will be the DPOA. They do not want any heroic measures including chest compressions or being on mechanical ventilator. DNR/DNI. Attestations 2 Medical Necessity Statement*: Continue admission for assessment of management of acute neurogenic encephalopathy after seizures in a lady with underlying COPD, hypercapnia, multiple sclerosis, CKD. and High MDM includes amount and/or complexity of data reviewed/ordered [ resulted lab(s)/test(s), ordered lab(s)/test(s), independent historian and other healthcare professional discussion] and described risk of complication, morbidity or mortality of management as documented Diagnoses Altered mental status R41.82 Altered mental status type: unspecified Seizure R56.9 Chronic respiratory failure with hypoxia and hypercapnia J96.11; J96.12 Atrial fibrillation I48.91 Atrial fibrillation type: unspecified Congestive heart failure, unspecified HF chronicity, unspecified heart failure type I50.9 Heart failure type: unspecified Heart failure chronicity: unspecified Primary hypertension I10 Hypertension type: primary hypertension Type 2 diabetes mellitus without complication, with long-term current use of insulin E11.9; Z79.4 Diabetes mellitus keno terminal operator insulin use: with keno terminal operator use Diabetes mellitus complication status: without complication CKD (chronic kidney disease) stage 3, GFR 30-59 ml/min N18.30
[2024-03-10] MEDS: donepezil 5 MG Tablet PO (20:54)
[2024-03-10] MEDS: ALPRAZolam 0.5 mg Tablet PO (20:54)
[2024-03-10] MEDS: haloperidol inj 5 mg/mL INJ 1 mL 1 MG IM (23:34)
[2024-03-11] VITALS (13 sets, daily range): BP systolic 136–176; BP diastolic 66–116; PULSE 80–114; RESP 15–23; TEMP 36.6–36.8; O2SAT 92–99; BMI 15.2
--- NOTE | 2024-03-11 00:10 | PC.NURSE ---
Pt heart rate variable 100-140 and hypertensive. Awake with periods of anxiousness. PRN haldol administered IM, no change in VS following. Contacted Dr. Petty and made aware, ordered to hold transfer and give 10 mg cardizem IVP.
[2024-03-11] MEDS: dilTIAZem 5 mg/mL SDV 5 mL 10 MG IVP (00:53)
[2024-03-11] MEDS: ALPRAZolam 0.5 mg Tablet PO (02:24)
[2024-03-11 05:27] LABS: Basophils % 0.2 %; Eosinophils % 0.2 %; Hematocrit 29.3 % (36-47); Lymphocytes % 12.1 %; Mean Corpuscular HGB Conc 31.7 g/dL (30-55); Mean Corpuscular Hemoglobin 32.3 pg (27-33); Mean Corpuscular Volume 101.7 fl (85-98); Mean Platelet Volume 10.4 fL (7.4-10.4); Monocytes # 0.6 10^3/uL (0.2-0.9); Monocytes % 7.5 %; Neutrophils # 6.56 10^3/uL (1.8-7.7); Neutrophils % 79.6 %; Nucleated Red Blood Cells % 0 %; Platelet Count 224 10^3/cmm (157-399); Red Blood Count 2.88 10^6/uL (3.85-5.65); Red Cell Distribution Width 12.4 % (12.1-15.1); White Blood Count 8.25 10^3/uL (3.29-11.43)
[2024-03-11 05:50] LABS: Anion Gap 9.6 (5-19); Blood Urea Nitrogen 15 mg/dL (8-23); Calcium 9.2 mg/dL (8.5-10.5); Carbon Dioxide 37 mmol/L (22-29); Chloride 90 mmol/L (98-107); Creatinine Clr Calc Pharmacy 24.7644; Glucose 147 mg/dL (65-115); Osmolality Calculated 280 mOsm/kg (285-295); Potassium 3.6 mmol/L (3.5-5.1); Sodium 133 mmol/L (136-145)
[2024-03-11 06:01] LABS: Magnesium 1.9 mg/dL (1.7-2.3)
[2024-03-11 07:49] LABS: Glucose Point of Care 127 mg/dL (70-110)
[2024-03-11] MEDS: ipratropium-albuterol 3 mL Neb INHALATION ×2 (07:50→15:09)
[2024-03-11] MEDS: lisinopril 10 mg Tablet PO (09:03)
[2024-03-11] MEDS: amlodipine 5 mg Tablet 2.5 MG PO (09:03)
[2024-03-11] MEDS: pantoprazole DR 40 mg Tablet PO (09:03)
[2024-03-11] MEDS: escitalopram 10 mg Tablet 20 MG PO (09:03)
[2024-03-11] MEDS: metoprolol tartrate 25 mg Tablet PO (09:03)
[2024-03-11] MEDS: nicotine 14 mg Patch 1 PATCH TRANSDERMA (09:04)
[2024-03-11] MEDS: magnesium sulfate premix 1 GM/100 ML PIGGYBACK IV (11:03)
[2024-03-11 11:10] LABS: Glucose Point of Care 134 mg/dL (70-110)
--- NOTE | 2024-03-11 15:56 | ECG_ITS ---
[facility] Test Date: 2024-03-11 Pat Name: Deidra De La Torre Department: Room: 111 Gender: Female Youth Manager: : 1945 Requested By: Taras Castro Order Number: [id number] Rasta MD: Wily Mayfield M.D. Measurements Intervals [place] Rate: 101 P: 0 MS: 0 QRS: 6 QRSD: 88 T: 80 QT: 297 QTc: 386 Interpretive Statements ATRIAL FIBRILLATION WITH RAPID VENTRICULAR RESPONSE ABNORMAL RHYTHM ECG Compared to ECG 03/11/2024 16:07:02 ST (T wave) deviation no longer present Electronically Signed On 03-11-2024 21:42:39 CDT by Wily Mayfield M.D. [email or web address], [facility] Online[facility].Sh[employer] A[employer]/store/OM/[id number]
--- NOTE | 2024-03-11 16:07 | ECG_ITS ---
[facility] Test Date: 2024-03-11 Pat Name: Deidra De La Torre Department: Room: 111 Gender: Female Denial Resolution Specialist: : 1945 Requested By: Taras Castro Order Number: [id number] Rasta MD: Wily Mayfield M.D. Measurements Intervals [place] Rate: 100 P: 0 DC: 0 QRS: 7 QRSD: 90 T: 0 QT: 296 QTc: 382 Interpretive Statements ATRIAL FIBRILLATION WITH RAPID VENTRICULAR RESPONSE MINIMAL ST DEPRESSION [0.025+ mV ST DEPRESSION] ABNORMAL RHYTHM ECG Compared to ECG 03/09/2024 06:25:45 ST (T wave) deviation now present Myocardial infarct finding no longer present Electronically Signed On 03-11-2024 21:42:36 CDT by Wily Mayfield M.D. [id number] clotilde
--- NOTE | 2024-03-11 16:16 | XRR_ITS ---
PROCEDURE INFORMATION: Exam: XR Chest Exam date and time: 03/11/2024 4:30 PM Age: 78 years old Clinical indication: Pain; Chest pressure; Additional info: Chest heaviness TECHNIQUE: Imaging protocol: Radiologic exam of the chest. Views: 1 view. COMPARISON: CR (CHEST, ) 03/08/2024 9:22 PM FINDINGS: Lungs: Severe emphysema with bullous changes in the lung bases. Mild interstitial scarring in the right lung base and left midlung. No consolidation. Pleural spaces: Unremarkable. No pleural effusion. No pneumothorax. Heart/Mediastinum: Unremarkable. No cardiomegaly. Bones/joints: Unremarkable. XR/XR chest 1V portable [id number] IMPRESSION: No acute findings.
--- NOTE | 2024-03-11 16:25 | PC.NURSE ---
Provider is notified that patient is complaining of chest heaviness. EKG is done. She is still in AFIB RVR but patient says it feels different. Provider put in orders.
[2024-03-11 17:18] LABS: Troponin(5th) Baseline 26 ng/L (0-10)
[2024-03-11] MEDS: apixaban 5 mg Tablet 2.5 MG PO (18:00)
[2024-03-11] MEDS: metoprolol tartrate 25 mg Tablet 37.5 MG PO (18:01)
--- NOTE | 2024-03-11 18:16 | ECG_ITS ---
[facility] Test Date: 2024-03-11 Pat Name: Deidra De La Torre Department: Room: 111 Gender: Female Shoe Folder: : 1945 Requested By: Taras Castro Order Number: [id number] Rasta MD: Wily Mayfield M.D. Measurements Intervals [place] Rate: 119 P: 0 SC: 0 QRS: 16 QRSD: 86 T: 0 QT: 265 QTc: 373 Interpretive Statements ATRIAL FIBRILLATION WITH RAPID VENTRICULAR RESPONSE MODERATE ST DEPRESSION [0.05+ mV ST DEPRESSION] Compared to ECG 03/11/2024 16:46:36 ST (T wave) deviation now present Electronically Signed On 03-12-2024 18:43:43 CDT by Wily Mayfield M.D. [id number]
[2024-03-11 19:17] LABS: Troponin 5 2HR 26.44 ng/L (0-10); Troponin 5 2HR Delta 0.44 ABS# (0-10)
[2024-03-11] MEDS: digoxin 125 mcg Tablet 62.5 MCG PO (21:43)
[2024-03-11] MEDS: donepezil 5 MG Tablet PO (21:44)
--- NOTE | 2024-03-11 22:31 | PM.PN ---
Subjective Subjective: Had some lethargy today, but currently seems more awake. Vitals/I&O/Wt Last Vital Signs Temp 98.0 F 03/11/24 11:53 Pulse 90 03/11/24 21:43 Resp 15 03/11/24 20:00 BP 155/77 03/11/24 20:00 Pulse Ox 97 03/11/24 20:00 O2 Del Method Nasal Cannula 03/11/24 20:00 O2 Flow Rate 2 03/11/24 19:45 FiO2 32 03/10/24 16:30 03/11/24 03/11/24 03/11/24 06:59 14:59 22:59 Intake Total 340 / 340 Balance 340 / 340 Weight last 48 hrs Weight 45.45 kg Weight 45.45 kg Physical Exam Narrative: Accompanied by daughter is at bedside. Const: COMMON NORMALS: alert; negative for patient oriented x3 GENERAL APPEARANCE: cooperative ORIENTATION/CONSCIOUSNESS: Yes awake HENMT: COMMON NORMALS: oropharynx normal Neck/C-Spine: COMMON NORMALS: no JVD Resp: COMMON NORMALS: normal respiratory effort and clear to auscultation bilaterally AUSCULTATION: clear to auscultation bilaterally Cardio: COMMON NORMALS: no JVD, regular rhythm, S1 normal heart sound present, S2 normal heart sound present and No murmurs present (Cardio) RHYTHM: regular rhythm HEART SOUNDS: S1 normal heart sound present and S2 normal heart sound present GI: COMMON NORMALS: Normal to inspection, nondistended, normoactive bowel sounds present, Soft to palpation and non-tender PALPATION: Yes Soft to palpation Extremity: COMMON NORMALS: no joint enlargement and no pedal edema Neuro: COMMON NORMALS: moves all extremities; negative for patient oriented x3 SENSORIUM/ORIENTATION: Yes alert OTHER: I do not appreciate facial droop. Dysarthria or aphasia. Skin: COMMON NORMALS: no rashes or lesions noted GENERAL SKIN EXAM: no rashes or lesions noted Data 03/11/24 04:43 03/11/24 04:43 A&P Assessment and plan (1) Altered mental status: Qualifiers: Altered mental status type: unspecified Qualified Code(s): R41.82 - Altered mental status, unspecified (2) Seizure: (3) Chronic respiratory failure with hypoxia and hypercapnia: (4) Atrial fibrillation: Qualifiers: Atrial fibrillation type: unspecified Qualified Code(s): I48.91 - Unspecified atrial fibrillation (5) CHF (congestive heart failure): Qualifiers: Heart failure type: unspecified Heart failure chronicity: unspecified Qualified Code(s): I50.9 - Heart failure, unspecified (6) Hypertension: Qualifiers: Hypertension type: primary hypertension Qualified Code(s): I10 - Essential (primary) hypertension (7) Type 2 diabetes mellitus: Qualifiers: Diabetes mellitus [facility] use: with [facility] use Diabetes mellitus complication status: without complication Qualified Code(s): E11.9 - Type 2 diabetes mellitus without complications; Z79.4 - USP (current) use of insulin (8) CKD (chronic kidney disease) stage 3, GFR 30-59 ml/min: Plan 78-year-old lady with known dementia, multiple sclerosis not on treatment, chronic hypercapnic respiratory failure, brought to the emergency room today with 2 witnessed episodes of tonic-clonic seizures seizures by EMS followed thereafter by altered mental status. Acute neurogenic encephalopathy following seizures: More lethargic again today. Reviewed vitals, CBC, BMP, magnesium, discussed with family, she declined BiPAP last night, does get claustrophobic, did receive Xanax. Decrease Xanax to 0.25. We had a long discussion with her and her family regarding various aspects of her condition including mental status changes, hypercapnia, atrial fibrillation with RVR, strategies to optimize both. Additionally noted hypoxia, saturation in high 90s. She does need help with oxygen with getting up and getting around, however, when she is resting in bed oxygen may be decreased. Target oxygen saturation 88 To 90%. Discussed with nursing, RT. Continue BiPAP with sleep and naps. Discussed with case checker.Arrangements for home health. Atrial fibrillation: Poorly controlled A-fib with RVR, heart rates regularly rising above 110. Continue digoxin. Will check level. Increase metoprolol to 37.5 mg twice daily. Repeat digoxin level requested. Noted down to 1.1, now therapeutic. Resume digoxin. Monitor for any signs of toxicity. Monitor on telemetry. Recheck chemistry. Continue with home dose of metoprolol. Continue with home dose of Eliquis. Unlikely hypercapnic seizure. Patient's CO2 and pH seem to be at baseline. Discussed with her health coach. Add Xanax as needed for anxiety/air hunger. Electrolytes within normal limits, no concerns for hypoglycemia or hyponatremia. UDS positive for benzo and opitares. Seizure in the setting of neurodegenerative dementia? Continue to monitor. Discussed consideration of antiepileptics, risks of recurrent seizure, risks with antiepileptics including to her balance, mental status. Could be worsening MS. Patient in the past did not tolerate treatment for MS. Reviewed respiratory viral panel, negative. Altered mental status could be in the setting of worsening dementia. Lexapro to 20 mg daily, and donepezil 5 mg nightly. Haldol 1 milligrams IM every 4 hours as needed, weaned off Precedex drip for now. Frequent reorientation. Transferred to medical surgical floor. Hypertension: Goal blood pressure less than 140/90 mmHg. Continue with home dose of antihypertensive. If needed will uptitrate the medications as per goals. COPD: Chronic hypercapnic and hypoxic respiratory failure: Repeat ABG. For now pH, pCO2 and O2 seems to be at baseline. Nebulization treatment. No concerns for exacerbation for now. CKD: Baseline creatinine seems to be 1.4-1.8. Currently 1.3. Monitor CMP daily. Congestive heart failure: Stop IVF. Lasix were increased as outpatient to daily dosing. Baseline echocardiogram last year showed an EF of 65% with mildly increased LA size, increased RV size, mild to moderate TR with PASP of 46 mmHg. Eliquis for DVT prophylaxis Protonix for PUD prophylaxis. CODE STATUS: DPatient's and daughters will be the DPOA. They do not want any heroic measures including chest compressions or being on mechanical ventilator. DNR/DNI. Attestations Medical Necessity Statement*: Continue admission for assessment of management of acute neurogenic encephalopathy after seizures in a lady with underlying COPD, hypercapnia, poorly controlled A-fib with RVR, multiple sclerosis, CKD. , High MDM includes amount and/or complexity of data reviewed/ordered [ resulted lab(s)/test(s), ordered lab(s)/test(s) and other healthcare professional discussion] as documented and High Time for a total of 60 minutes, includes reviewing past or interval history, examining/interviewing patient, placing orders, counseling patient/family/other support, updating patient/family/other support, discussing plan of care with staff, communicating with other healthcare providers, documenting encounter and coordinating care Diagnoses Altered mental status R41.82 Altered mental status type: unspecified Seizure R56.9 Chronic respiratory failure with hypoxia and hypercapnia J96.11; J96.12 Atrial fibrillation I48.91 Atrial fibrillation type: unspecified Congestive heart failure, unspecified HF chronicity, unspecified heart failure type I50.9 Heart failure type: unspecified Heart failure chronicity: unspecified Primary hypertension I10 Hypertension type: primary hypertension Type 2 diabetes mellitus without complication, with long-term current use of insulin E11.9; Z79.4 Diabetes mellitus [facility] insulin use: with dedicated intermodal truck driver use Diabetes mellitus complication status: without complication CKD (chronic kidney disease) stage 3, GFR 30-59 ml/min N18.30
--- NOTE | 2024-03-11 22:38 | ECG_ITS ---
[facility] Test Date: 2024-03-11 Pat Name: Deidra De La Torre Department: Room: 111 Gender: Female Architect: : 1945 Requested By: Taras Castro Order Number: [id number] Rasta MD: Wily Mayfield M.D. Measurements Intervals [place] Rate: 81 P: 0 SC: 0 QRS: 26 QRSD: 89 T: 83 QT: 314 QTc: 367 Interpretive Statements ATRIAL FIBRILLATION NONSPECIFIC T-WAVE ABNORMALITY ABNORMAL RHYTHM ECG Compared to ECG 03/11/2024 18:52:58 T-wave abnormality now present ST (T wave) deviation no longer present Electronically Signed On 03-12-2024 18:48:30 CDT by Wily Mayfield M.D. [email or web address] [facility], iront[place] [email or web address]/store/[id number]
[2024-03-11 23:44] LABS: Troponin 5 6HR 27.38 ng/L (0-10); Troponin 5 6HR Delta 1.38 ng/L (0-12)
[2024-03-12] VITALS (12 sets, daily range): BP systolic 140–181; BP diastolic 80–94; PULSE 77–120; RESP 16–24; TEMP 36.4–37.2; O2SAT 92–98; BMI 15.2
[2024-03-12 03:42] LABS: Basophils % 0.3 %; Eosinophils % 0.1 %; Hematocrit 33.6 % (36-47); Lymphocytes # 0.7 10^3/uL (0.8-4.8); Lymphocytes % 4.5 %; Mean Corpuscular HGB Conc 31.8 g/dL (30-55); Mean Corpuscular Volume 100.6 fl (85-98); Mean Platelet Volume 10.4 fL (7.4-10.4); Monocytes # 0.8 10^3/uL (0.2-0.9); Monocytes % 5.3 %; Neutrophils # 12.91 10^3/uL (1.8-7.7); Neutrophils % 89.2 %; Nucleated Red Blood Cells % 0 %; Platelet Count 275 10^3/cmm (157-399); Red Blood Count 3.34 10^6/uL (3.85-5.65); Red Cell Distribution Width 12.3 % (12.1-15.1); White Blood Count 14.46 10^3/uL (3.29-11.43)
[2024-03-12 04:10] LABS: Magnesium 1.9 mg/dL (1.7-2.3)
[2024-03-12 04:11] LABS: Anion Gap 11.8 (5-19); Blood Urea Nitrogen 20 mg/dL (8-23); Calcium 9.5 mg/dL (8.5-10.5); Carbon Dioxide 36 mmol/L (22-29); Chloride 88 mmol/L (98-107); Creatinine Clr Calc Pharmacy 26.8281; Digoxin 1.2 ng/mL (0.6-1.2); Glucose 193 mg/dL (65-115); Osmolality Calculated 282 mOsm/kg (285-295); Potassium 3.8 mmol/L (3.5-5.1); Sodium 132 mmol/L (136-145)
[2024-03-12 07:43] LABS: Glucose Point of Care 194 mg/dL (70-110)
[2024-03-12] MEDS: amlodipine 5 mg Tablet 2.5 MG PO (08:19)
[2024-03-12] MEDS: escitalopram 10 mg Tablet 20 MG PO (08:19)
[2024-03-12] MEDS: apixaban 5 mg Tablet 2.5 MG PO ×2 (08:19→17:11)
[2024-03-12] MEDS: lisinopril 10 mg Tablet PO (08:20)
[2024-03-12] MEDS: pantoprazole DR 40 mg Tablet PO (08:20)
[2024-03-12] MEDS: nicotine 14 mg Patch 1 PATCH TRANSDERMA (08:20)
[2024-03-12] MEDS: metoprolol tartrate 25 mg Tablet 37.5 MG PO (08:20)
[2024-03-12] MEDS: ipratropium-albuterol 3 mL Neb INHALATION ×3 (09:00→19:53)
[2024-03-12] MEDS: budesonide 0.5 mg/2 mL Neb INHALATION (09:00)
[2024-03-12] MEDS: magnesium sulfate premix 1 GM/100 ML PIGGYBACK IV (09:40)
--- NOTE | 2024-03-12 12:48 | PC.SOCIAL ---
Pg 2 IMM Explained to pt's family Pg 2 IMM. No questions voiced. Provided pt a copy. Initialed, dated, & timed a copy & placed in chart.
[2024-03-12] MEDS: metoprolol tartrate 25 mg Tablet PO (17:11)
[2024-03-12] MEDS: donepezil 5 MG Tablet PO (21:00)
--- NOTE | 2024-03-12 21:26 | PM.PN ---
Subjective Subjective: She denies any pain or discomfort. No additional new symptoms. She is awake and alert, doing better today in terms of mental status. Heart rate is tachycardic this morning, then in the afternoon bradycardic. Vitals/I&O/Wt Last Vital Signs Temp 98.8 F 03/12/24 20:00 Pulse 96 03/12/24 20:02 Resp 21 H 03/12/24 20:00 BP 156/89 03/12/24 20:00 Pulse Ox 95 03/12/24 20:00 O2 Del Method Room Air 03/12/24 20:00 O2 Flow Rate 2 03/12/24 09:00 FiO2 32 03/10/24 16:30 03/12/24 03/12/24 03/12/24 06:59 14:59 22:59 Intake Total 240 / 700 220 / 220 480 / 700 Balance 240 / 700 220 / 220 480 / 700 Weight last 48 hrs Weight 45.45 kg Weight 45.45 kg Physical Exam Narrative: Accompanied by daughter at bedside. Const: COMMON NORMALS: alert; negative for patient oriented x3 GENERAL APPEARANCE: cooperative ORIENTATION/CONSCIOUSNESS: Yes awake HENMT: COMMON NORMALS: oropharynx normal Neck/C-Spine: COMMON NORMALS: no JVD Resp: COMMON NORMALS: normal respiratory effort and clear to auscultation bilaterally AUSCULTATION: clear to auscultation bilaterally Cardio: COMMON NORMALS: no JVD, regular rhythm, S1 normal heart sound present, S2 normal heart sound present and No murmurs present (Cardio) RHYTHM: regular rhythm HEART SOUNDS: S1 normal heart sound present and S2 normal heart sound present GI: COMMON NORMALS: Normal to inspection, nondistended, normoactive bowel sounds present, Soft to palpation and non-tender PALPATION: Yes Soft to palpation Extremity: COMMON NORMALS: no joint enlargement and no pedal edema Neuro: COMMON NORMALS: moves all extremities; negative for patient oriented x3 SENSORIUM/ORIENTATION: Yes alert OTHER: I do not appreciate facial droop. Dysarthria or aphasia. Skin: COMMON NORMALS: no rashes or lesions noted GENERAL SKIN EXAM: no rashes or lesions noted Data 03/12/24 03:30 03/12/24 03:30 A&P Assessment and plan (1) Altered mental status: Qualifiers: Altered mental status type: unspecified Qualified Code(s): R41.82 - Altered mental status, unspecified (2) Seizure: (3) Chronic respiratory failure with hypoxia and hypercapnia: (4) Atrial fibrillation: Qualifiers: Atrial fibrillation type: unspecified Qualified Code(s): I48.91 - Unspecified atrial fibrillation (5) CHF (congestive heart failure): Qualifiers: Heart failure type: unspecified Heart failure chronicity: unspecified Qualified Code(s): I50.9 - Heart failure, unspecified (6) Hypertension: Qualifiers: Hypertension type: primary hypertension Qualified Code(s): I10 - Essential (primary) hypertension (7) Type 2 diabetes mellitus: Qualifiers: Diabetes mellitus nursing home insulin use: with supervisor intermediates use Diabetes mellitus complication status: without complication Qualified Code(s): E11.9 - Type 2 diabetes mellitus without complications; Z79.4 - supervisor intermediates (current) use of insulin (8) CKD (chronic kidney disease) stage 3, GFR 30-59 ml/min: Plan 78-year-old lady with known dementia, multiple sclerosis not on treatment, chronic hypercapnic respiratory failure, brought to the emergency room today with 2 witnessed episodes of tonic-clonic seizures seizures by EMS followed thereafter by altered mental status. Atrial fibrillation: Difficult to control atrial fibrillation, tachycardic this morning heart rates up into 120s, received increased dose metoprolol 37.5 mg, as well as digoxin, heart rates improved, but in the afternoon had an episode of bradycardia 40s-50s. Had to decrease metoprolol down to 25 mg again. Reviewed digoxin level, since level appears to be further rising up to 1.2, as per prior discussion decreased digoxin to every other day dosing. Monitor for any signs of toxicity with risk of digoxin toxicity. Monitor on telemetry. Recheck chemistry. Resumed home dose of Eliquis. Discussed with manager case management. In case heart rates remainbelow 110, ideally under 100, consideration of possible discharge tomorrow morning. Acute neurogenic encephalopathy following seizures: Mental status has been doing better per discussion with her daughter at bedside. Avoid hyperoxia as she appears to be very sensitive/easy to retain CO2. More lethargic again today. Reviewed vitals, CBC, BMP, magnesium, discussed with family, she declined BiPAP last night, does get claustrophobic, did receive Xanax. Decrease Xanax to 0.25. We had a long discussion with her and her family regarding various aspects of her condition including mental status changes, hypercapnia, atrial fibrillation with RVR, strategies to optimize both. Additionally noted hypoxia, saturation in high 90s. She does need help with oxygen with getting up and getting around, however, when she is resting in bed oxygen may be decreased. Target oxygen saturation 88 To 90%. Discussed with nursing, RT. Continue BiPAP with sleep and naps. Discussed with manager case management.Arrangements for home health. Unlikely hypercapnic seizure. Patient's CO2 and pH seem to be at baseline. Discussed with her senior research associate. Add Xanax as needed for anxiety/air hunger. Electrolytes within normal limits, no concerns for hypoglycemia or hyponatremia. UDS positive for benzo and opitares. Seizure in the setting of neurodegenerative dementia? Continue to monitor. Discussed consideration of antiepileptics, risks of recurrent seizure, risks with antiepileptics including to her balance, mental status. Could be worsening MS. Patient in the past did not tolerate treatment for MS. Reviewed respiratory viral panel, negative. Altered mental status could be in the setting of worsening dementia. Lexapro to 20 mg daily, and donepezil 5 mg nightly. Haldol 1 milligrams IM every 4 hours as needed, weaned off Precedex drip for now. Frequent reorientation. Transferred to medical surgical floor. Hypertension: Goal blood pressure less than 140/90 mmHg. Continue with home dose of antihypertensive. If needed will uptitrate the medications as per goals. COPD: Chronic hypercapnic and hypoxic respiratory failure: Repeat ABG. For now pH, pCO2 and O2 seems to be at baseline. Nebulization treatment. No concerns for exacerbation for now. CKD: Baseline creatinine seems to be 1.4-1.8. Currently 1.3. Monitor CMP daily. Congestive heart failure: Not yet resumed on Lasix. Monitor for signs of decompensation of CHF. If consistent oral intake consider resumption every other daily. Discussed with family concerned that BNP may be affected by lung disease, renal dysfunction. Lasix were increased as outpatient to daily dosing. Baseline echocardiogram last year showed an EF of 65% with mildly increased LA size, increased RV size, mild to moderate TR with PASP of 46 mmHg. Attestations Medical Necessity Statement*: Continue admission for assessment of management of difficult to control A-fib with RVR. and High MDM includes amount and/or complexity of data reviewed/ordered [ resulted lab(s)/test(s), independent historian and other healthcare professional discussion] and described risk of complication, morbidity or mortality of management as documented Diagnoses Altered mental status R41.82 Altered mental status type: unspecified Seizure R56.9 Chronic respiratory failure with hypoxia and hypercapnia J96.11; J96.12 Atrial fibrillation I48.91 Atrial fibrillation type: unspecified Congestive heart failure, unspecified HF chronicity, unspecified heart failure type I50.9 Heart failure type: unspecified Heart failure chronicity: unspecified Primary hypertension I10 Hypertension type: primary hypertension Type 2 diabetes mellitus without complication, with long-term current use of insulin E11.9; Z79.4 Diabetes mellitus supervisor intermediates insulin use: with supervisor intermediates use Diabetes mellitus complication status: without complication CKD (chronic kidney disease) stage 3, GFR 30-59 ml/min N18.30
--- NOTE | 2024-03-12 22:05 | PC.NURSE ---
Daughter expressing concern that patient has not had her trazodone 75mg at bedtime. She is also concerned for possible UTI with her mentation changes. Informed Dr Valdes. Received orders to obtain UA and to give home dose of Trazodone onetime.
[2024-03-12] MEDS: trazodone 150 mg Tablet 75 MG PO (22:43)
[2024-03-13] VITALS (13 sets, daily range): BP systolic 138–180; BP diastolic 78–125; PULSE 71–135; RESP 16–30; TEMP 36.8–37; O2SAT 91–100
[2024-03-13] MEDS: ipratropium-albuterol 3 mL Neb INHALATION ×3 (02:31→13:35)
[2024-03-13 04:13] LABS: Add Urine Microscopic? YES; Bilirubin Urine Neg (Negative); Blood Urine Neg (Negative); Glucose Urine UA 2+ (Normal); Ketones Urine Negative (Negative); Leukocyte Esterase Urine Negative (Negative); Nitrate Urine Negative (Negative); Protein Urine 1+ (Negative); Specific Gravity, Urine 1.005 (1.005-1.030); Urine Appearance Clear (CLEAR); Urine Color Light yellow (Yellow); Urobilinogen Urine Neg (Negative); pH Urine 7 (5-7)
[2024-03-13 04:14] LABS: Add Urine Culture? No; RBC Urine 0-4 /hpf (0-2); Squamous Epithelial Cell Urine 0-4 /hpf (0-5)
[2024-03-13 06:52] LABS: Basophils % 0.4 %; Eosinophils # 0.1 10^3/uL (0.0-0.8); Eosinophils % 0.7 %; Hematocrit 31.8 % (36-47); Lymphocytes # 0.9 10^3/uL (0.8-4.8); Lymphocytes % 9.6 %; Mean Corpuscular HGB Conc 32.4 g/dL (30-55); Mean Corpuscular Hemoglobin 32.8 pg (27-33); Mean Corpuscular Volume 101.3 fl (85-98); Mean Platelet Volume 10.4 fL (7.4-10.4); Monocytes # 0.6 10^3/uL (0.2-0.9); Monocytes % 6.6 %; Neutrophils % 82.4 %; Nucleated Red Blood Cells % 0 %; Platelet Count 197 10^3/cmm (157-399); Red Blood Count 3.14 10^6/uL (3.85-5.65); Red Cell Distribution Width 12.6 % (12.1-15.1); White Blood Count 9.23 10^3/uL (3.29-11.43)
[2024-03-13 07:08] LABS: Blood Urea Nitrogen 21 mg/dL (8-23); Calcium 9.4 mg/dL (8.5-10.5); Carbon Dioxide 36 mmol/L (22-29); Chloride 89 mmol/L (98-107); Glucose 168 mg/dL (65-115); Osmolality Calculated 285 mOsm/kg (285-295); Sodium 134 mmol/L (136-145)
[2024-03-13 07:10] LABS: Anion Gap 12.3 (5-19); Potassium 3.3 mmol/L (3.5-5.1)
[2024-03-13] MEDS: metoprolol tartrate 25 mg Tablet PO (08:20)
[2024-03-13] MEDS: pantoprazole DR 40 mg Tablet PO (08:20)
[2024-03-13] MEDS: escitalopram 10 mg Tablet 20 MG PO (08:20)
[2024-03-13] MEDS: nicotine 14 mg Patch 1 PATCH TRANSDERMA (08:21)
[2024-03-13] MEDS: acetaminophen 325 mg Tablet 650 MG PO (08:37)
[2024-03-13] MEDS: amlodipine 5 mg Tablet 2.5 MG PO (09:59)
[2024-03-13] MEDS: apixaban 5 mg Tablet 2.5 MG PO (09:59)
[2024-03-13] MEDS: lisinopril 10 mg Tablet PO (09:59)
[2024-03-13] MEDS: potassium chloride ER 20 mEq Tablet 40 MEQ PO (12:52)
--- NOTE | 2024-03-13 13:49 | P.DS_ITS ---
Discharge Providers Date of Admission: 03/09/24 00:06 Date of Discharge: March 13, 2024 Attending Provider at Admission: Heidy Man MD Attending Provider at Discharge: Taras Castro Primary Care Provider: Reva Govea APN Diagnoses at Discharge Discharge Diagnosis (1) Altered mental status: Status: Acute Qualifiers: Altered mental status type: unspecified Qualified Code(s): R41.82 - Altered mental status, unspecified (2) Seizure: Status: Acute (3) Chronic respiratory failure with hypoxia and hypercapnia: Status: Acute (4) Atrial fibrillation: Status: Acute Qualifiers: Atrial fibrillation type: unspecified Qualified Code(s): I48.91 - Unspecified atrial fibrillation (5) CHF (congestive heart failure): Status: Acute Qualifiers: Heart failure chronicity: unspecified Heart failure type: unspecified Qualified Code(s): I50.9 - Heart failure, unspecified (6) Hypertension: Status: Acute Qualifiers: Hypertension type: primary hypertension Qualified Code(s): I10 - Essential (primary) hypertension (7) Type 2 diabetes mellitus: Status: Acute Qualifiers: Diabetes mellitus complication status: without complication Diabetes m ellitus superintendent container terminal insulin use: with superintendent container terminal use Qualified Code(s): E11.9 - Type 2 diabetes mellitus without complications; Z79.4 - superintendent marine oil terminal (current) use of insulin (8) CKD (chronic kidney disease) stage 3, GFR 30-59 ml/min: Status: Acute Reason for Visit Reason for Visit: POSSIBLE STROKE Hospital Course Hospital Course 78-year-old lady with history of multiple sclerosis not on treatment after not tolerating it in the past, dementia, advanced COPD, smoking, CHF, atrial fibrillation was admitted after new onset seizure, subsequently with altered mental status, lethargy, had difficult time recovering from postictal state, does retain carbon dioxide easily. Instructed patient and family to avoid hyperoxia, target oxygen saturation 88-92%. Wear trilogy with sleep and any naps. Xanax as needed for anxiety/claustrophobia. The cause of the seizure is unclear. CT head with presumed ex-vacuo prominence of ventricles with medial temporal lobe volume loss suggesting possible Alzheimer's type dementia, less likely differential diagnosis of NPH. Brain MRI without acute infarct, without major obvious abnormality, but motion limited noncontrast study. 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 Cause of seizures not entirely clear from the above studies. Her antidepressant medications were initially held including escitalopram, venlafaxine and trazodone which she takes at home. Digoxin dose was mildly elevated on presentation. She did have some acute kidney dysfunction on presentation. Did appear to have some dehydration, recently with some concern for worsening congestive heart failure diuretics were also increased. Hypercapnia not likely the cause of her seizure. There is a possibility of scar tissue or other focus contributing to seizure. She is referred for follow-up with EEG, neurology who may further consider additional workup, utility of repeating MRI possibly with contrast which may help assess also with regards to MS. further assessment of dementia, no ventriculomegaly. Trazodone can decrease seizure threshold, and is unclear whether this may have contributed to the seizure but she has been on it for years, though perhaps in the setting of KYLE in combination with the other antidepressants. As such altho ugh renal function has improved, creatinine down to 1.3, trazodone dose for now is decreased down to 50 mg and will be further decreased down to 25 mg after 3-4 days as per discussion with family. If she has no further adverse effects could continue on the lower dose but would exercise caution with escalation or discontinue time in case of recurrence of seizure. Discussed could use melatonin to aid in sleep unfortunately other sleep aids may have more undesirable adverse effects. During hospitalization also with difficult to control A-fib with RVR, heart rates intermittently up into 120s, at one point as high as 160s. Digoxin dose was initially held after level was elevated on presentation, subsequently resumed, with level showing rise from 1.1-1.2 doses decreased to every other day to help reduce chance of toxicity. Please follow-up digoxin level in office. Metoprolol dose was transiently increased up to 37.5 mg twice daily but she could not tolerate this with an episode of bradycardia down into the 40s. Metoprolol was decreased back down to 25 mg. She does appear to have good control of heart rates remaining below 100 after taking her medications, but advised to take first thing in the morning as that is when her episodes of tachycardia appear to have been before she takes her morning medications. She and family confirm that she is a very picky eater. Encouraged her to maintain oral intake due to low BMI, moderate malnutrition with muscle mass loss, BMI 14.8, advanced COPD, she does have a few nutritional protein shakes that she likes with vanilla flavor, encouraged to add these to her meals. Please follow-up regarding her moderate to severe malnutrition. Physical Exam Narrative: Accompanied by son and daughter. Const: COMMON NORMALS: alert GENERAL APPEARANCE: cooperative ORIENTATION/CONSCIOUSNESS: Yes awake OTHER: Having lunch. HENMT: COMMON NORMALS: oropharynx normal Neck/C-Spine: COMMON NORMALS: no JVD Resp: COMMON NORMALS: normal respiratory effort and clear to auscultation bilaterally AUSCULTATION: clear to auscultation bilaterally Cardio: COMMON NORMALS: no JVD, S1 normal heart sound present, S2 normal heart sound present and No murmurs present (Cardio) RHYTHM: abnormal rhythm irregularly irregular HEART SOUNDS: S1 normal heart sound present and S2 normal heart sound present GI: COMMON NORMALS: Normal to inspection, nondistended, normoactive bowel sounds present, Soft to palpation and non-tender PALPATION: Yes Soft to palpation Extremity: COMMON NORMALS: no joint enlargement and no pedal edema Neuro: COMMON NORMALS: moves all extremities SENSORIUM/ORIENTATION: Yes alert OTHER: No facial droop. Dysarthria or aphasia. Skin: COMMON NORMALS: no rashes or lesions noted GENERAL SKIN EXAM: no rashes or lesions noted Discharge Data Studies Completed and Pending Completed Studies During Hospitalization Category Date Time Status CT head thrombolytic [id number] Stat Cat Scan 03/08/24 21:14 Completed CXRP [XR chest 1V portable [id number]] Routine Exams 03/11/24 16:16 Completed XR chest 1V portable [id number] Stat Exams 03/08/24 21:14 Completed MR head wo con* [id number] Routine MRI 03/09/24 06:13 Completed Radiology Impressions Head CT 03/08/24 21:14 IMPRESSION: 1. No acute intracranial abnormality. 2. Presumed ex vacuo prominence of the ventricles with medial temporal lobe volume loss suggesting possible Alzheimer's type dementia. Less likely differential diagnosis is NPH. ASSESSMENT: ASPECTS (Terri Stroke Program Early CT Score) is 10. Head MRI 03/09/24 06:13 IMPRESSION: Motion limited study. No acute infarct. Chest X-Ray 03/11/24 16:16 IMPRESSION: No acute findings. Laboratory Results WBC 9.23 10^3/uL (3.29-11.43) 03/13/24 06:43 RBC 3.14 10^6/uL (3.85-5.65) L 03/13/24 06:43 Hgb 10.30 g/dL (11.27-16.99) L 03/13/24 06:43 Hct 31.8 % (36-47) L 03/13/24 06:43 MCV 101.3 fl (85-98) H 03/13/24 06:43 MCH 32.8 pg (27-33) 03/13/24 06:43 MCHC 32.4 g/dL (30-55) 03/13/24 06:43 RDW 12.6 % (12.1-15.1) 03/13/24 06:43 Plt Count 197 10^3/cmm (157-399) 03/13/24 06:43 MPV 10.4 fL (7.4-10.4) 03/13/24 06:43 Neut % (Auto) 82.4 % 03/13/24 06:43 Lymph % (Auto) 9.6 % 03/13/24 06:43 [place] % (Auto) 6.6 % 03/13/24 06:43 Eos % (Auto) 0.7 % 03/13/24 06:43 Baso % (Auto) 0.4 % 03/13/24 06:43 Neut # (Auto) 7.60 10^3/uL (1.8-7.7) 03/13/24 06:43 Lymph # (Auto) 0.9 10^3/uL (0.8-4.8) 03/13/24 06:43 [place] # (Auto) 0.6 10^3/uL (0.2-0.9) 03/13/24 06:43 Eos # (Auto) 0.1 10^3/uL (0.0-0.8) 03/13/24 06:43 Baso # (Auto) 0.0 10^3/uL (0.0-0.1) 03/13/24 06:43 Nucleated RBC % (auto) 0 % 03/13/24 06:43 Nucleated RBCs # 0.0 /100WBC 03/13/24 06:43 PT 13.60 SECONDS (12.1-14.9) 03/08/24 21:20 INR 1.01 (0.8-1.2) 03/08/24 21:20 APTT 34.5 SECONDS (23.9-36.7) 03/08/24 21:20 Specimen Type Arterial 03/09/24 00:38 Sample Site Brachial, right 03/09/24 00:38 ABG pH 7.35 (7.35-7.45) 03/09/24 00:38 ABG pCO2 74.4 mmHg (35-45) H* 03/09/24 00:38 ABG pO2 113.0 mmHg (80.0-100.0) H 03/09/24 00:38 ABG PO2/FiO2 Ratio 0 03/09/24 00:38 ABG HCO3 40.7 mmol/L (22-26) H 03/09/24 00:38 ABG O2 Saturation > 100.0 03/08/24 23:07 ABG Base Excess 12.7 mmol/L (-2.0-2.0) H 03/09/24 00:38 Bob Test N/a 03/09/24 00:38 A-a O2 Gradient Not Reportable 03/08/24 23:07 Hematocrit 30.9 % (37-47) L 03/09/24 00:38 Hgb O2 Saturation 98.6 % (95-100) 03/08/24 23:07 Carboxyhemoglobin 0.9 %THgb (0.4-20.1) 03/08/24 23:07 Methemoglobin 0.9 % (0.4-1.5) 03/08/24 23:07 Total Hemoglobin 11.2 g/dL (12-16) L 03/08/24 23:07 Sodium 141.0 mmol/L (131-143) 03/08/24 23:07 Potassium 4.1 mmol/L (3.5-5.0) 03/08/24 23:07 Glucose 119.0 mg/dL (70-115) H 03/08/24 23:07 Ionized Calcium 1.2 mmol/L (1.1-1.4) 03/08/24 23:07 O2 Delivery Device Bipap 03/09/24 00:38 O2 Liters/Min 6.0 % 03/08/24 23:07 FiO2 32.0 % 03/09/24 00:38 Code Clerk ID [email or web address] 03/09/24 00:38 Sodium 134 mmol/L (136-145) L 03/13/24 06:43 Potassium 3.3 mmol/L (3.5-5.1) L 03/13/24 06:43 Chloride 89 mmol/L (98-107) L 03/13/24 06:43 Carbon Dioxide 36 mmol/L (22-29) H 03/13/24 06:43 Anion Gap 12.3 (5-19) 03/13/24 06:43 BUN 21 mg/dL (8-23) 03/13/24 06:43 Creatinine 1.3 mg/dL (0.5-0.9) H 03/13/24 06:43 GFR Calculation Not Reportable 03/13/24 06:43 Glucose 168 mg/dL (65-115) H 03/13/24 06:43 POC Glucose 194 mg/dL (70-110) H 03/12/24 07:39 Calculated Osmolality 285 mOsm/kg (285-295) 03/13/24 06:43 Calcium 9.4 mg/dL (8.5-10.5) 03/13/24 06:43 Magnesium 1.9 mg/dL (1.7-2.3) 03/12/24 03:30 Iron 56 ug/dL (37-145) 03/09/24 08:18 TIBC 227 mcg/dl 03/09/24 08:18 % Saturation 24.6 % (20-50) 03/09/24 08:18 Unsat Iron Binding 171 ug/dL (112-347) 03/09/24 08:18 Total Bilirubin 0.4 mg/dL (0.15-1.2) 03/10/24 05:00 AST 30 U/L (0-32) 03/10/24 05:00 ALT 13 U/L (0-33) 03/10/24 05:00 Alkaline Phosphatase 96 U/L (35-105) 03/10/24 05:00 Troponin T Baseline 26 ng/L (0-10) H 03/11/24 16:54 Troponin T 120 Minute 26.44 ng/L (0-10) H 03/11/24 18:41 Delta Troponin T 0.44 ABS# (0-10) 03/11/24 18:41 Troponin T Hi Sens 6Hr 27.38 ng/L (0-10) H 03/11/24 23:11 Troponin T Hi Sens 6Hr Delta 1.38 ng/L (0-12) 03/11/24 23:11 C-Reactive Protein 3.0 mg/L (0.0-4.9) 03/08/24 21:20 NT-Pro-B Natriuret Pep 5005 pg/mL (0-450) H 03/08/24 21:20 Total Protein 6.2 g/dL (6.6-8.7) L 03/10/24 05:00 Albumin 3.8 g/dL (3.5-5.2) 03/10/24 05:00 Globulin 2.4 g/dL (1.3-4.6) 03/10/24 05:00 Vitamin B12 397 pg/mL (232-1245) 03/09/24 08:18 Folate 7.7 ng/mL (4.8-37.3) 03/10/24 05:00 TSH 5.29 uIU/mL (0.27-4.20) H 03/08/24 21:20 Free T4 1.79 ng/dL (0.82-1.77) H 03/09/24 00:00 Free T3 3.6 PG/ML (2.0-4.4) 03/09/24 00:00 Prolactin 30.69 ng/mL (4.8-23.3) H 03/08/24 21:20 Urine Color Light yellow (Yellow) 03/13/24 03:27 Urine Appearance Clear (CLEAR) 03/13/24 03:27 Urine pH 7 (5-7) 03/13/24 03:27 Ur Specific [place] 1.005 (1.005-1.030) 03/13/24 03:27 Urine Protein 1+ (Negative) H 03/13/24 03:27 Urine Glucose (UA) 2+ (Normal) H 03/13/24 03:27 Urine Ketones Negative (Negative) 03/13/24 03: Urine Blood Neg (Negative) 03/13/24 03:27 Urine Nitrate Negative (Negative) 03/13/24 03:27 Urine Bilirubin Neg (Negative) 03/13/24 03:27 Urine Urobilinogen Neg mg/dL (Negative) 03/13/24 03:27 Ur Leukocyte Esterase Negative (Negative) 03/13/24 03:27 Urine RBC 0-4 /hpf (0-2) H 03/13/24 03:27 Urine WBC None /hpf (0-5) 03/13/24 03:27 Ur Squamous Epith Cells 0-4 /hpf (0-5) H 03/13/24 03:27 Amorphous Sediment Not Reportable 03/13/24 03:27 Urine Bacteria None /hpf (NONE) 03/13/24 03:27 Urine Mucus Trace /hpf 03/09/24 01:25 Digoxin 1.2 ng/mL (0.6-1.2) 03/12/24 03:30 Urine Opiates Screen Positive ng/mL (Negative) H 03/09/24 01:25 Ur Barbiturates Screen Negative ng/mL (Negative) 03/09/24 01:25 Ur Phencyclidine Scrn Negative ng/mL (Negative) 03/09/24 01:25 Ur Amphetamines Screen Negative ng/mL (Negative) 03/09/24 01:25 U Benzodiazepines Scrn Positive ng/mL (Negative) H 03/09/24 01:25 Urine Cocaine Screen Negative ng/mL (Negative) 03/09/24 01:25 U Marijuana (THC) Screen Negative ng/mL (Negative) 03/09/24 01:25 Adenovirus (PCR) Not detected (NOT DETECT) 03/09/24 14:13 C. pneumoniae DNA (PCR) Not detected (NOT DETECT) 03/09/24 14:13 Coronavirus 229E (PCR) Not detected (NOT DETECT) 03/09/24 14:13 Human Metapneumovir PCR Not detected (NOT DETECT) 03/09/24 14:13 Influenza A (H1) PCR Not detected (NOT DETECT) 03/09/24 14:13 Influ A (H1/09) PCR Not detected (NOT DETECT) 03/09/24 14:13 Influenza A (H3) PCR Not detected (NOT DETECT) 03/09/24 14:13 Influenza Type A (PCR) Not detected (NOT DETECT) 03/09/24 14:13 Influenza Type B (PCR) Not detected (NOT DETECT) 03/09/24 14:13 M. pneumoniae (PCR) Not detected (NOT DETECT) 03/09/24 14:13 Parainfluenza 1 (PCR) Not detected (NOT DETECT) 03/09/24 14:13 Parainfluenza 2 (PCR) Not detected (NOT DETECT) 03/09/24 14:13 Parainfluenza 3 (PCR) Not detected (NOT DETECT) 03/09/24 14:13 Parainfluenza 4 (PCR) Not detected (NOT DETECT) 03/09/24 14:13 RSV Type A (PCR) Not detected (NOT DETECT) 03/09/24 14:13 RSV Type B (PCR) Not detected (NOT DETECT) 03/09/24 14:13 Entero/Rhino (PCR) Not detected (NOT DETECT) 03/09/24 14:13 SARS-CoV-2 (PCR) Not detected (NOT DETECT) 03/09/24 14:13 Vitals Last Vital Signs Temp 98.2 F 03/13/24 12:00 Pulse 105 H 03/13/24 13:42 Resp 16 03/13/24 13:36 BP 140/80 03/13/24 12:00 Pulse Ox 93 03/13/24 13:36 O2 Del Method Room Air 03/13/24 13:36 O2 Flow Rate 3 03/13/24 10:02 FiO2 32 03/10/24 16:30 Discharge Plan Discharge Patient Disposition: Home Health Service Condition: Stable Prescriptions: New donepezil 5 mg Tablet 5 mg PO BEDTIME Qty: 90 0RF trazodone 50 mg tablet 50 mg PO BEDTIME Qty: 90 0RF escitalopram oxalate 10 mg tablet 10 mg PO DAILY Qty: 90 0RF Continued Eliquis 5 mg tablet 2.5 mg PO BID cholecalciferol (vitamin D3) 10 mcg (400 unit) tablet 10 mcg PO DAILY furosemide [Lasix] 20 mg tablet 10 mg PO .every other day budesonide [Pulmicort] 0.5 mg/2 mL suspension for nebulization 0.5 mg INHALATION BID PRN (Reason: Shortness Of Breath) amlodipine 2.5 mg tablet 2.5 mg PO DAILY Qty: 30 3RF lisinopril 10 mg tablet 10 mg PO DAILY 60 Days Qty: 60 1RF albuterol sulfate 2.5 mg /3 mL (0.083 %) solution for nebulization 2.5 mg inhalation Q4H PRN (Reason: Shortness Of Breath) metformin 500 mg tablet extended release 24 hr 500 mg PO BID pantoprazole 40 mg tablet,delayed release (DR/EC) 40 mg PO DAILY metoprolol tartrate 25 mg Tablet 25 mg PO BID Qty: 60 0RF alprazolam 0.5 mg tablet 0.25 mg PO TID PRN (Reason: Anxiety) Qty: 30 0RF Changed digoxin 125 mcg (0.125 mg) tablet 0.0625 mcg PO EVERY OTHER DAY Qty: 1 0RF Rx Instructions: Dose change only Discontinued venlafaxine 37.5 mg capsule,extended release 24hr 37.5 mg PO DAILY trazodone 150 mg Tablet 75 mg PO BEDTIME escitalopram oxalate 5 mg tablet 5 mg PO DAILY Discharge Orders: Discharge Order (Routine); Ordered 03/13/24 Ordered By: Taras Castro Other Ambulatory Orders: DME: Walker (Order) Location: None Selected Ordered By: Taras Castro EEG electroencephalogram (Routine) Timeframe: 4 Days Facility: [facility] - Location: Neurology Ordered By: Taras Castro Referrals: [facility] [Other] [facility] [place] Sherin Lopez MD [Physician] - 04/04/24 12:00 pm (The Office has your information and will be calling you to schedule an EEG. You can also call the office at the number listed if you have any questions or concerns. Thank you.) Wily Mayfield MD [Physician] - 1 week (Your Dr. Mayfield follow up appointment will be scheduled during your Alyce Dickinson appointment. Thank you.) Alyce Dickinson FNP [Nurse Practitioner] - 03/26/24 3:30 pm Jeferson,EULALIA Ardon [Primary Care Provider] - 03/18/24 3:00 pm Discharge Activity: Increase activity as tolerated, Oxygen as instructed and Cpap/Bipap as instructed Patient Instructions: COPD, Donepezil (By mouth) (Aricept, Aricept ODT), Escitalopram (By mouth) (Lexapro), Heart Failure (DC), A-fib (Atrial Fibrillation) (GEN), New-Onset Seizure in Adults (GEN), Tips for Healthy Sleep (GEN), CHF Stoplight Activity Restrictions/Additional Instructions: Continue to monitor oxygen at home 3-4 times daily or more frequently. Target oxygen saturation 88-92%, avoid overly high oxygen saturation which may contribute to retention of carbon dioxide. Wear trilogy at nighttime or with naps. Use small dose Xanax as needed to help with claustrophobia/air hunger or anxiety episodes. Be cautious with Xanax low- dose as it is a benzodiazepine, can lead to sleepiness, respiratory depression, tolerance. It is helpful to treat episodes of anxiety, air hunger. With exertion/getting up, transfers, increased oxygen temporarily due to increased need for oxygen with activity. Then decrease/adjust again once at rest cardiac saturation 88-92%. At the same time as oxygen, check the heart rate, target heart rate below 110, ideally below 100 bpm at rest. Continue metoprolol 25 mg twice daily. Caution on increasing metoprolol or adding other madan moses due to episode of slow heart rate down into the 40s during hospitalization with increase of metoprolol up to 37.5 mg. Continue digoxin, due to increased level ejection presentation frequency is decreased to every other day. Follow-up with primary provider and cardiology for reassessment of atrial fibrillation control. Due to possibility of lowering seizure threshold trazodone dose is reduced to 50 mg, please reduce further to 25 mg after 3-4 days. Consider staying with the reduced 25 mg dose if tolerating without issues. Consider adding melatonin if needed in case this dose of trazodone is not enough to assist with her sleep needs in addition to good sleep hygiene. For same reason venlafaxine is discontinued at current time. Follow-up with neurology for additional assessment following a seizure episode, consideration of additional studies, you are referred for additional assessment by outpatient EEG. Discussed with neurology consideration of repeat MRI possibly with contrast. Discuss history of MS. Dementia. Follow-up with your primary provider regarding other chronic problems including hypertension, COPD, chronic kidney disease, congestive heart failure. Diabetes. Avoid smoking. Seek medical attention in case of any worsening or new concerning symptoms. Discharge Attestations Time Spent in Discharge Care*: greater than 30 min Quality Metrics Clinical Quality Measures [ No reported AMI, CVA or VTE this stay] Coding Level of Care Code 76050 Total time (in minutes) for Discharge: 55 Diagnoses Altered mental status R41.82 Altered mental status type: unspecified Seizure R56.9 Chronic respiratory failure with hypoxia and hypercapnia J96.11; J96.12 Atrial fibrillation I48.91 Atrial fibrillation type: unspecified Congestive heart failure, unspecified HF chronicity, unspecified heart failure type I50.9 Heart failure chronicity: unspecified Heart failure type: unspecified Primary hypertension I10 Hypertension type: primary hypertension Type 2 diabetes mellitus without complication, with long-term current use of insulin E11.9; Z79.4 Diabetes mellitus complication status: without complication Diabetes mellitus retirement insulin use: with superintendent container terminal use CKD (chronic kidney disease) stage 3, GFR 30-59 ml/min N18.30
== END 2024-03-13 15:12 | disposition home health service (06) | DRG 101 ==
LOC: ER 03-09 05:43 → ER IP 03-09 07:18 → ICU 03-09 07:26 → CSU 03-11 02:44
PROVIDERS: Internal Medicine; Student in an Organized Health Care Education/Training Program; Admitting Provider Student in an Organized Health Care Education/Training Program; Emergency Provider Emergency Medicine; PCP Nurse Practitioner Family; Visit Provider Internal Medicine
DX: R56.9 Unspecified convulsions (principal); I13.0 Hypertensive heart and chronic kidney disease with heart failure and stage 1 through stage 4 chronic kidney disease, or unspecified chronic kidney disease; J96.12 Chronic respiratory failure with hypercapnia; J96.11 Chronic respiratory failure with hypoxia; G93.49 Other encephalopathy; J44.9 Chronic obstructive pulmonary disease, unspecified; F03.90 Unspecified dementia, unspecified severity, without behavioral disturbance, psychotic disturbance, mood disturbance, and anxiety; I50.9 Heart failure, unspecified; N18.30 Chronic kidney disease, stage 3 unspecified; E11.22 Type 2 diabetes mellitus with diabetic chronic kidney disease; I48.91 Unspecified atrial fibrillation; G35 Multiple sclerosis; F41.9 Anxiety disorder, unspecified; F32.A Depression, unspecified; E78.5 Hyperlipidemia, unspecified; F17.210 Nicotine dependence, cigarettes, uncomplicated; Z66 Do not resuscitate; Z11.52 Encounter for screening for COVID-19; Z79.01 Long term (current) use of anticoagulants; Z79.4 Long term (current) use of insulin
CPT/HCPCS: 36415; 36416; 36600; 70450; 70551; 71045; 80048; 80051; 80053; 80162; 80306; 81001; 82330; 82607; 82746; 82803; 82805; 82962; 83540; 83550; 83735; 83880; 84146; 84439; 84443; 84481; 84484; 85025; 85610; 85730; 86140; 87486; 87581; 87633; 92523; 92526; 92610; 93005; 94640; 94660; 96365; 96372; 96374; 96376; 99291; J1630; J1953; J3475; J3490; J7030; J7626

== ENCOUNTER → 2024-04-15 13:45 | Outpatient (BNVA) | payer MEDICARE, SELFPAY | PROVIDERS: PCP Nurse Practitioner Family; Visit Provider Nurse Practitioner Family | DX: I48.91 Unspecified atrial fibrillation (principal); Z79.01 Long term (current) use of anticoagulants; I13.0 Hypertensive heart and chronic kidney disease with heart failure and stage 1 through stage 4 chronic kidney disease, or unspecified chronic kidney disease; N18.30 Chronic kidney disease, stage 3 unspecified; I50.9 Heart failure, unspecified; F17.200 Nicotine dependence, unspecified, uncomplicated; E78.5 Hyperlipidemia, unspecified | CPT/HCPCS: 80048; 80162; 81003; 83880; 99214 ==

== ENCOUNTER 2024-06-04 16:25 | Emergency (ER) | payer MEDICARE, SELFPAY ==
[2024-06-04 16:32] VITALS: BP 104/66; PULSE 118; RESP 18; TEMP 36.6; O2SAT 94
--- NOTE | 2024-06-04 16:35 | ECG_ITS ---
[facility] Test Date: 2024-06-04 Pat Name: Deidra De La Torre Department: Room: Gender: Female [employer] Supervisor: : 1945 Requested By: Alli Rose Order Number: [id number] Rasta MD: Wily Mayfield M.D. Measurements Intervals [place] Rate: 132 P: 0 [place]: 0 QRS: 73 QRSD: 77 T: 89 QT: 253 QTc: 375 Interpretive Statements ATRIAL FIBRILLATION WITH RAPID VENTRICULAR RESPONSE SEPTAL MYOCARDIAL INFARCTION , PROBABLY OLD [40+ ms Q WAVE IN V1/V2] Compared to ECG 03/11/2024 22:38:24 Myocardial infarct finding now present T-wave abnormality no longer present Electronically Signed On 06-05-2024 22:16:37 CDT by Wily Mayfield M.D. [id number]
--- NOTE | 2024-06-04 16:42 | XRR_ITS ---
PROCEDURE INFORMATION: Exam: XR Chest Exam date and time: 06/04/2024 4:44 PM Age: 78 years old Clinical indication: Shortness of breath; Additional info: Dyspnea/cough TECHNIQUE: Imaging protocol: Radiologic exam of the chest. Views: 1 view. COMPARISON: CR XR chest 1V portable [id number] 03/11/2024 4:30 PM FINDINGS: Lungs: No focal consolidation. Severe emphysematous changes. Pleural spaces: A small basilar pneumothorax would be difficult to exclude on the left. No evidence of pleural effusion. Heart/Mediastinum: Cardiomediastinal silhouette is within normal limits. Bones/joints: No evidence of acute osseous abnormality. XR/XR chest 1V portable [id number] IMPRESSION: 1. Severe emphysematous changes with bibasilar bullae, left worse than right. A small left basilar pneumothorax would be difficult to exclude. Correlation with CT may be helpful.
[2024-06-04 17:14] LABS: Basophils % 0.2 %; Hematocrit 32.7 % (36-47); Lymphocytes # 1.9 10^3/uL (0.8-4.8); Mean Corpuscular HGB Conc 30.6 g/dL (30-55); Mean Corpuscular Hemoglobin 29.9 pg (27-33); Mean Corpuscular Volume 97.9 fl (85-98); Mean Platelet Volume 10.6 fL (7.4-10.4); Monocytes # 0.5 10^3/uL (0.2-0.9); Monocytes % 10.3 %; Neutrophils # 2.16 10^3/uL (1.8-7.7); Neutrophils % 47.3 %; Nucleated Red Blood Cells % 0 %; Platelet Count 199 10^3/cmm (157-399); Red Blood Count 3.34 10^6/uL (3.85-5.65); Red Cell Distribution Width 13.8 % (12.1-15.1); White Blood Count 4.57 10^3/uL (3.29-11.43)
--- NOTE | 2024-06-04 17:18 | W.ED.WEAKNES ---
Documented by User: Alli Blanco DO 06/05/24 06:02 HPI - Weakness General: Chief complaint: Weakness Stated complaint: low bp, confusion, disorientation Time Seen by Provider: 06/04/24 16:41 Source: patient Mode of arrival: wheelchair History of Present Illness: 78-year-old female presents emergency room complaining of generalized weakness. She has a history of dementia history of atrial fibrillation she has not been eating or drinking enough she is quite cachectic although the family says that she has been that way for some time no fever sweats or chills she is on apixaban for atrial fibrillation she did not get her metoprolol earlier today because her blood pressure was reportedly low. Her initial EKG gave her rate in the 130s of A-fib but when I went to seen the patient at the bedside she had slowed down considerably and was below 100. She is not able to give much for usable history she denies any abdominal pain or chest pain. She does have a history of COPD. MD Complaint: generalized weakness Associated symptoms: Reports confusion, decreased appetite and short of breath; Denies chest pain, chills, dysuria or fever(s) Review of Systems Const: Denies: fever(s) or chills Card: Denies: chest pain Resp: Denies: dyspnea GI: Denies: abdominal pain : Denies: dysuria, urinary frequency or urinary urgency Musc: Denies: neck pain or back pain Skin/Breast: Denies: rash Neuro: Reports: confusion PFSH ED PFSH: Medical History CKD (chronic kidney disease) stage 3, GFR 30-59 ml/min Weight loss Chest pain Multiple sclerosis Type 2 diabetes mellitus Anxiety and depression Hyperlipidemia Hypertension COPD (chronic obstructive pulmonary disease) Surgical History History of appendectomy Family History Other Diabetes Hypertension Social History Smoking and tobacco/nicotine status: current some day tobacco/nicotine user Quit status (tobacco/nicotine): considering quitting Alcohol intake: never Substance/Drug Use: never Lives independently: Yes Household members: spouse Marital status: Current occupational status: unemployed Do you think of yourself as: Straight/Heterosexual Current gender identity: Female Physical Exam Const: GENERAL APPEARANCE: cooperative and comfortable ORIENTATION/CONSCIOUSNESS: Yes awake, Yes oriented to person, Yes oriented to place and Yes oriented to time HENMT: COMMON NORMALS: normocephalic, atraumatic and hearing grossly normal bilaterally HEAD & SCALP: normocephalic and atraumatic Resp: COMMON NORMALS: normal respiratory effort, No retractions, No use of accessory muscles and clear to auscultation bilaterally AUSCULTATION: clear to auscultation bilaterally Cardio: COMMON NORMALS: No murmurs present (Cardio) RATE: tachycardic RHYTHM: abnormal rhythm irregularly irregular GI: COMMON NORMALS: Soft to palpation and No hepatosplenomegaly present AUSCULTATION: Yes normoactive bowel sounds PALPATION: Yes Soft to palpation, No Tenderness to palpation present (GI), No Guarding due to palpation present (GI) and Yes No hepatosplenomegaly present Extremity: COMMON NORMALS: normal to inspection, capillary refill normal, no clubbing, cyanosis or edema, no calf tenderness and no pedal edema Neuro: SENSORIUM/ORIENTATION: Yes oriented to person, Yes oriented to place and Yes oriented to time Skin: COMMON NORMALS: no rashes or lesions noted GENERAL SKIN EXAM: no rashes or lesions noted Course Vital Signs: Vital signs: Vital Signs Temperature 98 F 06/04/24 16:32 Pulse Rate 83 06/04/24 21:24 Respiratory Rate 27 H 06/04/24 21:24 Blood Pressure 128/70 06/04/24 21:24 Pulse Oximetry 90 06/04/24 21:24 Oxygen Delivery Me thod Nasal Cannula 06/04/24 18:15 Oxygen Flow Rate 2 06/04/24 18:15 MDM - Weakness Medical Decision Making Care signed out to Dr. Bhatia at change of shift. See final notes for diagnosis and disposition. Patient transferred over my care shift change, waiting for lab work to come back, and CTA, lab work and CTA came back I had a long talk with 2 daughters. Patient will be discharged back home and we talk with him about potentially increasing her back to her standard dose of trazodone to 50 mg and using the Xanax as needed to help for sleep and get her days and nights resituated. Patient will be discharged from the ER. Lab Data 06/04/24 17:03 06/04/24 17:03 Radiology Impressions Chest X-Ray 06/04/24 16:42 IMPRESSION: 1. Severe emphysematous changes with bibasilar bullae, left worse than right. A small left basilar pneumothorax would be difficult to exclude. Correlation with CT may be helpful. ADDENDUM: 06/04/24 1947 The findings were verbally communicated by telephone with Dr. BLANCO at 5:12 PM CDT on 06/04/2024. Chest CT 06/04/24 17:21 IMPRESSION: 1. No evidence of pneumothorax. 2. Severe emphysematous changes with bibasilar bullae. The presence of pulmonary emphysema on CT is an independent risk factor for lung cancer. In the absence of a history or active diagnosis of lung cancer, it is recommended that this patient with emphysema be evaluated for enrollment in a low dose CT lung cancer screening program. 3. 11 mm nodule in the posterior right thyroid lobe. Consider correlation with thyroid function tests and follow-up outpatient thyroid ultrasound. Laboratory Results WBC 4.57 10^3/uL (3.29-11.43) 06/04/24 17:03 RBC 3.34 10^6/uL (3.85-5.65) L 06/04/24 17:03 Hgb 10.00 g/dL (11.27-16.99) L 06/04/24 17:03 Hct 32.7 % (36-47) L 06/04/24 17:03 MCV 97.9 fl (85-98) 06/04/24 17:03 MCH 29.9 pg (27-33) 06/04/24 17:03 MCHC 30.6 g/dL (30-55) 06/04/24 17:03 RDW 13.8 % (12.1-15.1) 06/04/24 17:03 Plt Count 199 10^3/cmm (157-399) 06/04/24 17:03 MPV 10.6 fL (7.4-10.4) H 06/04/24 17:03 Neut % (Auto) 47.3 % 06/04/24 17:03 Lymph % (Auto) 42.0 % 06/04/24 17:03 [place] % (Auto) 10.3 % 06/04/24 17:03 Eos % (Auto) 0.0 % 06/04/24 17:03 Baso % (Auto) 0.2 % 06/04/24 17:03 Neut # (Auto) 2.16 10^3/uL (1.8-7.7) 06/04/24 17:03 Lymph # (Auto) 1.9 10^3/uL (0.8-4.8) 06/04/24 17:03 [place] # (Auto) 0.5 10^3/uL (0.2-0.9) 06/04/24 17:03 Eos # (Auto) 0.0 10^3/uL (0.0-0.8) 06/04/24 17:03 Baso # (Auto) 0.0 10^3/uL (0.0-0.1) 06/04/24 17:03 Nucleated RBC % (auto) 0 % 06/04/24 17: Nucleated RBCs # 0.0 /100WBC 06/04/24 17:03 Specimen Type Arterial 06/04/24 17:28 Sample Site Brachial, left 06/04/24 17:28 ABG pH 7.44 (7.35-7.45) 06/04/24: ABG pCO2 50.6 mmHg (35-45) H 06/04/24 17: ABG pO2 96.2 mmHg (80.0-100.0) 06/04/24: ABG HCO3 34.2 mmol/L (22-26) H 06/04/24: ABG O2 Saturation 98.3 06/04/24: ABG Base Excess 8.8 mmol/L (-2.0-2.0) H 06/04/24 17:28 Bob Test Pos 06/04/24 17: A-a O2 Gradient Not Reportable 06/04/24: Hematocrit 30.3 % (37-47) L 06/04/24 17:28 Hgb O2 Saturation 97.0 % (95-100) 06/04/24: Carboxyhemoglobin 1.1 %THgb (0.4-20.1) 06/04/24 17: Methemoglobin 0.3 % (0.4-1.5) L 06/04/24 17:28 Total Hemoglobin 9.9 g/dL (12-16) L 06/04/24 17:28 Sodium 133.0 mmol/L (131-143) 06/04/24 17:28 Potassium 4.7 mmol/L (3.5-5.0) 06/04/24 17:28 Glucose 169.0 mg/dL (70-115) H 06/04/24 17:28 Ionized Calcium 1.7 mmol/L (1.1-1.4) H 06/04/24 17:28 O2 Delivery Device Nc 06/04/24 17:28 O2 Liters/Min 2.0 % 06/04/24 17:28 Unloading Checker ID [email or web address] 06/04/24 17:28 Sodium 134 mmol/L (136-145) L 06/04/24 17:03 Potassium 5.1 mmol/L (3.5-5.1) 06/04/24 17: Chloride 92 mmol/L (98-107) L 06/04/24 17:03 Carbon Dioxide 34 mmol/L (22-29) H 06/04/24 17:03 Anion Gap 13.1 (5-19) 06/04/24 17:03 BUN 46 mg/dL (8-23) H 06/04/24 17:03 Creatinine 2.3 mg/dL (0.5-0.9) H 06/04/24 17:03 GFR Calculation Not Reportable 06/04/24 17:03 Glucose 187 mg/dL (65-115) H 06/04/24 17:03 Calculated Osmolality 295 mOsm/kg (285-295) 06/04/24 17:03 Calcium 12.8 mg/dL (8.5-10.5) H 06/04/24 17:03 Total Bilirubin 0.3 mg/dL (0.15-1.2) 06/04/24 17:03 AST 19 U/L (0-32) 06/04/24 17:03 ALT 10 U/L (0-33) 06/04/24 17:03 Alkaline Phosphatase 94 U/L (35-105) 06/04/24 17:03 Total Protein 6.8 g/dL (6.6-8.7) 06/04/24 17:03 Albumin 3.4 g/dL (3.5-5.2) L 06/04/24 17:03 Globulin 3.4 g/dL (1.3-4.6) 06/04/24 17:03 TSH 2.04 uIU/mL (0.27-4.20) 06/04/24 17:03 Urine Color Yellow (Yellow) 06/04/24 18:00 Urine Appearance Clear (CLEAR) 06/04/24 18:00 Urine pH 6.5 (5-7) 06/04/24 18:00 Ur Specific [place] 1.015 (1.005-1.030) 06/04/24 18:00 Urine Protein Neg (Negative) 06/04/24 18:00 Urine Glucose (UA) Norm (Normal) 06/04/24 18:00 Urine Ketones Negative (Negative) 06/04/24 18:00 Urine Blood Neg (Negative) 06/04/24 18:00 Urine Nitrate Negative (Negative) 06/04/24 18:00 Urine Bilirubin Neg (Negative) 06/04/24 18:00 Urine Urobilinogen Norm mg/dL (Negative) 06/04/24 18:00 Ur Leukocyte Esterase Negative (Negative) 06/04/24 18:00 Digoxin 0.9 ng/mL (0.6-1.2) 06/04/24 17:03 Discharge Plan Discharge Patient Disposition: Home Clinical Impression: Weakness, Atrial fibrillation with rapid ventricular response Altered mental status Qualifiers: Altered mental status type: unspecified Qualified Code(s): R41.82 - Altered mental status, unspecified Condition: Stable Prescriptions: No Action Eliquis 5 mg tablet 2.5 mg PO BID cholecalciferol (vitamin D3) 10 mcg (400 unit) tablet 10 mcg PO DAILY furosemide [Lasix] 20 mg tablet 10 mg PO .every other day budesonide [Pulmicort] 0.5 mg/2 mL suspension for nebulization 0.5 mg INHALATION BID PRN (Reason: Shortness Of Breath) amlodipine 2.5 mg tablet 2.5 mg PO DAILY Qty: 30 3RF lisinopril 10 mg tablet 10 mg PO DAILY 60 Days Qty: 60 1RF albuterol sulfate 2.5 mg /3 mL (0.083 %) solution for nebulization 2.5 mg inhalation Q4H PRN (Reason: Shortness Of Breath) metformin 500 mg tablet extended release 24 hr 500 mg PO BID pantoprazole 40 mg tablet,delayed release (DR/EC) 40 mg PO DAILY metoprolol tartrate 25 mg Tablet 25 mg PO BID Qty: 60 0RF donepezil 5 mg Tablet 5 mg PO BEDTIME Qty: 90 0RF trazodone 50 mg tablet 50 mg PO BEDTIME Qty: 90 0RF alprazolam 0.5 mg tablet 0.25 mg PO TID PRN (Reason: Anxiety) Qty: 30 0RF digoxin 125 mcg (0.125 mg) tablet 0.0625 mcg PO EVERY OTHER DAY Qty: 1 0RF Rx Instructions: Dose change only escitalopram oxalate 10 mg tablet 10 mg PO DAILY Qty: 90 0RF Discharge Orders: Discharge ED (Routine); Ordered 06/04/24 Ordered By: Mohan Bhatia Referrals: Reva Govea APN [Primary Care Provider] - 1 week Patient Instructions: Confusion, Weakness (Generalized) Activity Restrictions/Additional Instructions: Please restart the patient's Xanax back at prior instructions specifically at night to help her with sleep and get her sleep patterns adjusted. You may also increase the trazodone back to her normal dose at night as this may help as well. Please follow-up with her family practice physician in the next 7 days for further evaluation and treatment. Thank you for choosing [facility] for your healthcare needs today. Please realize that you were seen in the emergency department and that we are providing you with an emergency medical screening exam and this may not be a complete and all exclusive of all testing and/or medical workup we may need to determine your element or severity of your illness. It is very important that you follow-up as instructed with your primary care provider or specialist for the additional evaluation and to discuss your medical treatment plan. You may return to the emergency department should you have concerns or if your condition changes or worsens in any way. Coding Level of Care Code ED Assembler Skylights for [employer] Documented by User: Mohan Bhatia DO 06/05/24 00:21 HPI - Weakness General: Chief complaint: Weakness Stated complaint: low bp, confusion, disorientation Time Seen by Provider: 06/04/24 16:41 PFSH ED PFSH: Medical History CKD (chronic kidney disease) stage 3, GFR 30-59 ml/min Weight loss Chest pain Multiple sclerosis Type 2 diabetes mellitus Anxiety and depression Hyperlipidemia Hypertension COPD (chronic obstructive pulmonary disease) Surgical History History of appendectomy Family History Other Diabetes Hypertension Social History Smoking and tobacco/nicotine status: current some day tobacco/nicotine user Quit status (tobacco/nicotine): considering quitting Alcohol intake: never Substance/Drug Use: never Lives independently: Yes Household members: spouse Marital status: Current occupational status: unemployed Do you think of yourself as: Straight/Heterosexual Current gender identity: Female Course Vital Signs: Vital signs: Vital Signs Temperature 98 F 06/04/24 16:32 Pulse Rate 83 06/04/24 21:24 Respiratory Rate 27 H 06/04/24 21:24 Blood Pressure 128/70 06/04/24 21:24 Pulse Oximetry 90 06/04/24 21:24 Oxygen Delivery Me thod Nasal Cannula 06/04/24 18:15 Oxygen Flow Rate 2 06/04/24 18:15 MDM - Weakness Medical Decision Making Patient transferred over my care shift change, waiting for lab work to come back, and CTA, lab work and CTA came back I had a long talk with 2 daughters. Patient will be discharged back home and we talk with him about potentially increasing her back to her standard dose of trazodone to 50 mg and using the Xanax as needed to help for sleep and get her days and nights resituated. Patient will be discharged from the ER. Lab Data 06/04/24 17:03 06/04/24 17:03 Radiology Impressions Chest X-Ray 06/04/24 16:42 IMPRESSION: 1. Severe emphysematous changes with bibasilar bullae, left worse than right. A small left basilar pneumothorax would be difficult to exclude. Correlation with CT may be helpful. ADDENDUM: 06/04/241713 The findings were verbally communicated by telephone with Dr. BLANCO at 5:12 PM CDT on 06/04/2024. Chest CT 06/04/24 17:21 IMPRESSION: 1. No evidence of pneumothorax. 2. Severe emphysematous changes with bibasilar bullae. The presence of pulmonary emphysema on CT is an independent risk factor for lung cancer. In the absence of a history or active diagnosis of lung cancer, it is recommended that this patient with emphysema be evaluated for enrollment in a low dose CT lung cancer screening program. 3. 11 mm nodule in the posterior right thyroid lobe. Consider correlation with thyroid function tests and follow-up outpatient thyroid ultrasound. Laboratory Results WBC 4.57 10^3/uL (3.29-11.43) 06/04/24 17:03 RBC 3.34 10^6/uL (3.85-5.65) L 06/04/24 17:03 Hgb 10.00 g/dL (11.27-16.99) L 06/04/24 17:03 Hct 32.7 % (36-47) L 06/04/24 17:03 MCV 97.9 fl (85-98) 06/04/24 17:03 MCH 29.9 pg (27-33) 06/04/24 17:03 MCHC 30.6 g/dL (30-55) 06/04/24 17:03 RDW 13.8 % (12.1-15.1) 06/04/24 17:03 Plt Count 199 10^3/cmm (157-399) 06/04/24 17:03 MPV 10.6 fL (7.4-10.4) H 06/04/24 17:03 Neut % (Auto) 47.3 % 06/04/24 17:03 Lymph % (Auto) 42.0 % 06/04/24 17:03 [place] % (Auto) 10.3 % 06/04/24 17:03 Eos % (Auto) 0.0 % 06/04/24 17:03 Baso % (Auto) 0.2 % 06/04/24 17:03 Neut # (Auto) 2.16 10^3/uL (1.8-7.7) 06/04/24 17:03 Lymph # (Auto) 1.9 10^3/uL (0.8-4.8) 06/04/24 17:03 [place] # (Auto) 0.5 10^3/uL (0.2-0.9) 06/04/24 17:03 Eos # (Auto) 0.0 10^3/uL (0.0-0.8) 06/04/24 17: Baso # (Auto) 0.0 10^3/uL (0.0-0.1) 06/04/24 17: Nucleated RBC % (auto) 0 % 06/04/24 17: Nucleated RBCs # 0.0 /100WBC 06/04/24 17: Specimen Type Arterial 06/04/24: Sample Site Brachial, left 06/04/24: ABG pH 7.44 (7.35-7.45) 06/04/24: ABG pCO2 50.6 mmHg (35-45) H 06/04/24: ABG pO2 96.2 mmHg (80.0-100.0) 06/04/24: ABG HCO3 34.2 mmol/L (22-26) H 06/04/24: ABG O2 Saturation 98.3 06/04/24: ABG Base Excess 8.8 mmol/L (-2.0-2.0) H 06/04/24: Bob Test Pos 06/04/24: A-a O2 Gradient Not Reportable 06/04/24: Hematocrit 30.3 % (37-47) L 06/04/24: Hgb O2 Saturation 97.0 % (95-100) 06/04/24: Carboxyhemoglobin 1.1 %THgb (0.4-20.1) 06/04/24: Methemoglobin 0.3 % (0.4-1.5) L 06/04/24 17: Total Hemoglobin 9.9 g/dL (12-16) L 06/04/24: Sodium 133.0 mmol/L (131-143) 06/04/24: Potassium 4.7 mmol/L (3.5-5.0) 06/04/24 17:28 Glucose 169.0 mg/dL (70-115) H 06/04/24 17:28 Ionized Calcium 1.7 mmol/L (1.1-1.4) H 06/04/24 17:28 O2 Delivery Device Nc 06/04/24 17: O2 Liters/Min 2.0 % 06/04/24 17:28 Unloading Checker ID Wal[place] 06/04/24 17:28 Sodium 134 mmol/L (136-145) L 06/04/24 17:03 Potassium 5.1 mmol/L (3.5-5.1) 06/04/24 17:03 Chloride 92 mmol/L (98-107) L 06/04/24 17:03 Carbon Dioxide 34 mmol/L (22-29) H 06/04/24 17:03 Anion Gap 13.1 (5-19) 06/04/24 17:03 BUN 46 mg/dL (8-23) H 06/04/24 17:03 Creatinine 2.3 mg/dL (0.5-0.9) H 06/04/24 17:03 GFR Calculation Not Reportable 06/04/24 17:03 Glucose 187 mg/dL (65-115) H 06/04/24 17:03 Calculated Osmolality 295 mOsm/kg (285-295) 06/04/24 17: Calcium 12.8 mg/dL (8.5-10.5) H 06/04/24 17:03 Total Bilirubin 0.3 mg/dL (0.15-1.2) 06/04/24 17:03 AST 19 U/L (0-32) 06/04/24 17:03 ALT 10 U/L (0-33) 06/04/24 17:03 Alkaline Phosphatase 94 U/L (35-105) 06/04/24 17:03 Total Protein 6.8 g/dL (6.6-8.7) 06/04/24 17:03 Albumin 3.4 g/dL (3.5-5.2) L 06/04/24 17:03 Globulin 3.4 g/dL (1.3-4.6) 06/04/24 17:03 TSH 2.04 uIU/mL (0.27-4.20) 06/04/24 17:03 Urine Color Yellow (Yellow) 06/04/24 18:00 Urine Appearance Clear (CLEAR) 06/04/24 18:00 Urine pH 6.5 (5-7) 06/04/24 18:00 Ur Specific [place] 1.015 (1.005-1.030) 06/04/24 18:00 Urine Protein Neg (Negative) 06/04/24 18:00 Urine Glucose (UA) Norm (Normal) 06/04/24 18:00 Urine Ketones Negative (Negative) 06/04/24 18:00 Urine Blood Neg (Negative) 06/04/24 18:00 Urine Nitrate Negative (Negative) 06/04/24 18:00 Urine Bilirubin Neg (Negative) 06/04/24 18:00 Urine Urobilinogen Norm mg/dL (Negative) 06/04/24 18:00 Ur Leukocyte Esterase Negative (Negative) 06/04/24 18:00 Digoxin 0.9 ng/mL (0.6-1.2) 06/04/24 17:03 All radiology interpretation(s) finalized by discharge Discharge Plan Discharge Patient Disposition: Home Clinical Impression: Weakness, Atrial fibrillation with rapid ventricular response Altered mental status Qualifiers: Altered mental status type: unspecified Qualified Code(s): R41.82 - Altered mental status, unspecified Condition: Stable Prescriptions: No Action Eliquis 5 mg tablet 2.5 mg PO BID cholecalciferol (vitamin D3) 10 mcg (400 unit) tablet 10 mcg PO DAILY furosemide [Lasix] 20 mg tablet 10 mg PO .every other day budesonide [Pulmicort] 0.5 mg/2 mL suspension for nebulization 0.5 mg INHALATION BID PRN (Reason: Shortness Of Breath) amlodipine 2.5 mg tablet 2.5 mg PO DAILY Qty: 30 3RF lisinopril 10 mg tablet 10 mg PO DAILY 60 Days Qty: 60 1RF albuterol sulfate 2.5 mg /3 mL (0.083 %) solution for nebulization 2.5 mg inhalation Q4H PRN (Reason: Shortness Of Breath) metformin 500 mg tablet extended release 24 hr 500 mg PO BID pantoprazole 40 mg tablet,delayed release (DR/EC) 40 mg PO DAILY metoprolol tartrate 25 mg Tablet 25 mg PO BID Qty: 60 0RF donepezil 5 mg Tablet 5 mg PO BEDTIME Qty: 90 0RF trazodone 50 mg tablet 50 mg PO BEDTIME Qty: 90 0RF alprazolam 0.5 mg tablet 0.25 mg PO TID PRN (Reason: Anxiety) Qty: 30 0RF digoxin 125 mcg (0.125 mg) tablet 0.0625 mcg PO EVERY OTHER DAY Qty: 1 0RF Rx Instructions: Dose change only escitalopram oxalate 10 mg tablet 10 mg PO DAILY Qty: 90 0RF Discharge Orders: Discharge ED (Routine); Ordered 06/04/24 Ordered By: Mohan Bhatia Referrals: Reva Govea APN [Primary Care Provider] - 1 week Patient Instructions: Confusion, Weakness (Generalized) Activity Restrictions/Additional Instructions: Please restart the patient's Xanax back at prior instructions specifically at night to help her with sleep and get her sleep patterns adjusted. You may also increase the trazodone back to her normal dose at night as this may help as well. Please follow-up with her family practice physician in the next 7 days for further evaluation and treatment. Thank you for choosing [facility] for your healthcare needs today. Please realize that you were seen in the emergency department and that we are providing you with an emergency medical screening exam and this may not be a complete and all exclusive of all testing and/or medical workup we may need to determine your element or severity of your illness. It is very important that you follow-up as instructed with your primary care provider or specialist for the additional evaluation and to discuss your medical treatment plan. You may return to the emergency department should you have concerns or if your condition changes or worsens in any way. Coding Level of Care Code ED Assembler Skylights for Pricilla Lui
--- NOTE | 2024-06-04 17:21 | CTR_ITS ---
PROCEDURE INFORMATION: Exam: CT Chest Without Contrast; Diagnostic Exam date and time: 06/04/2024 6:18 PM Age: 78 years old Clinical indication: Dyspnea; Patient HX: Copd TECHNIQUE: Imaging protocol: Diagnostic computed tomography of the chest without contrast. Radiation optimization: All CT scans at this facility use at least one of these dose optimization techniques: automated exposure control; mA and/or kV adjustment per patient size (includes targeted exams where dose is matched to clinical indication); or iterative reconstruction. COMPARISON: CR XR chest 1V portable [id number] 06/04/2024 4:44 PM RADIATION DOSE METRICS: Total DLP (mGy-cm): 254 FINDINGS: Thyroid: 11 mm nodule in the posterior right thyroid lobe. Consider correlation with thyroid function tests and follow-up outpatient thyroid ultrasound. Lungs: Severe emphysematous changes with bibasilar bullae, [id number]. Scattered pulmonary nodules, not significantly changed since prior. No focal consolidation. No pneumothorax. Pleural spaces: No pleural effusion. Heart: No cardiomegaly. No pericardial effusion. Coronary arteries: There are incidental dense coronary artery calcifications with involvement of the left main. Mediastinal space: Trachea and airway are grossly patent. No evidence of mediastinal hemorrhage or hematoma. Lymph nodes: No evidence of mediastinal adenopathy. Evaluation for hilar adenopathy is limited by lack of IV contrast. Vasculature: Atherosclerosis without aneurysmal dilatation of the thoracic aorta. Evaluation for acute vascular injury or thrombosis is limited by lack of IV contrast. Bones/joints: No evidence of acute fracture or aggressive osseous lesion. Soft tissues: No evidence of fluid collection or hematoma in the superficial soft tissues. Other findings: No evidence of acute abnormality in the upper abdomen. CT/CT chest [facility] [id number] IMPRESSION: 1. No evidence of pneumothorax. 2. Severe emphysematous changes with bibasilar bullae. The presence of pulmonary emphysema on CT is an independent risk factor for lung cancer. In the absence of a history or active diagnosis of lung cancer, it is recommended that this patient with emphysema be evaluated for enrollment in a low dose CT lung cancer screening program. 3. 11 mm nodule in the posterior right thyroid lobe. Consider correlation with thyroid function tests and follow-up outpatient thyroid ultrasound.
[2024-06-04 17:39] LABS: ABG PCO2 50.6 mmHg (35-45); ABG PH Result 7.44 (7.35-7.45); Arterial Blood Gas Hematocrit 30.3 % (37-47); Base Excess ABG 8.8 mmol/L (-2.0-2.0); Blood Gas Allen Test Pos; Blood Gas Operator Identificat WALCI; Blood Gas Sample Site Brachial, left; Blood Gas Sample Type Arterial; Carboxyhemoglobin 1.1 %THgb (0.4-20.1); HCO3 ABG 34.2 mmol/L (22-26); Ionized Calcium Level - ABG 1.7 mmol/L (1.1-1.4); Methemoglobin 0.3 % (0.4-1.5); Oxygen Device NC; Oxygen Saturation ABG 98.3; PO2 ABG 96.2 mmHg (80.0-100.0); Potassium Level - ABG 4.7 mmol/L (3.5-5.0); Total Hemoglobin 9.9 g/dL (12-16)
[2024-06-04 17:40] LABS: Slide Review Slide Review Perform
[2024-06-04 17:43] LABS: Alanine Aminotransferase 10 U/L (0-33); Albumin Level 3.4 g/dL (3.5-5.2); Alkaline Phosphatase 94 U/L (35-105); Aspartate Amino Transferase 19 U/L (0-32); Blood Urea Nitrogen 46 mg/dL (8-23); Calcium 12.8 mg/dL (8.5-10.5); Carbon Dioxide 34 mmol/L (22-29); Chloride 92 mmol/L (98-107); Creatinine Clr Calc Pharmacy 12.5723; Globulin 3.4 g/dL (1.3-4.6); Glucose 187 mg/dL (65-115); Osmolality Calculated 295 mOsm/kg (285-295); Sodium 134 mmol/L (136-145); Thyroid Stimulating Hormone 2.04 uIU/mL (0.27-4.20); Total Bilirubin 0.3 mg/dL (0.15-1.2); Total Protein 6.8 g/dL (6.6-8.7)
[2024-06-04 17:52] LABS: Anion Gap 13.1 (5-19); Potassium 5.1 mmol/L (3.5-5.1)
[2024-06-04 18:15] VITALS: BP 137/76; PULSE 105; O2SAT 91
[2024-06-04 18:33] VITALS: BP 126/64; PULSE 96; RESP 27
[2024-06-04 18:36] LABS: Add Urine Microscopic? NO; Charge for UA Resulting for Rev
[2024-06-04 18:49] LABS: Bilirubin Urine Neg (Negative); Blood Urine Neg (Negative); Glucose Urine UA Norm (Normal); Ketones Urine Negative (Negative); Leukocyte Esterase Urine Negative (Negative); Nitrate Urine Negative (Negative); Protein Urine Neg (Negative); Specific Gravity, Urine 1.015 (1.005-1.030); Urine Appearance Clear (CLEAR); Urine Color Yellow (Yellow); Urobilinogen Urine Norm (Negative); pH Urine 6.5 (5-7)
[2024-06-04 19:20] VITALS: BP 122/70; PULSE 118; O2SAT 16
[2024-06-04] MEDS: metoprolol tartrate 25 mg Tablet PO (19:24)
[2024-06-04 20:32] LABS: Digoxin 0.9 ng/mL (0.6-1.2)
[2024-06-04 20:41] VITALS: BP 128/69; PULSE 71; RESP 20; O2SAT 96
[2024-06-04 21:24] VITALS: BP 128/70; PULSE 83; RESP 27; O2SAT 90
[2024-06-06 13:10] LABS: Lyme AB Screen <0.90 index
[2024-06-11 16:03] LABS: RMSF IGG DETECTED; RMSF IGM NOT DETECTED
[2024-06-12 17:05] LABS: E. Chaffeensis AB IGM <1:20; Interpretation PAST INFECTION
== END 2024-06-04 21:25 | disposition home or self-care (01) ==
PROVIDERS: Emergency Medicine; Emergency Provider Family Medicine; PCP Nurse Practitioner Family
DX: R53.1 Weakness (principal); I48.91 Unspecified atrial fibrillation; R41.82 Altered mental status, unspecified; I12.9 Hypertensive chronic kidney disease with stage 1 through stage 4 chronic kidney disease, or unspecified chronic kidney disease; N18.30 Chronic kidney disease, stage 3 unspecified; E11.22 Type 2 diabetes mellitus with diabetic chronic kidney disease; E78.5 Hyperlipidemia, unspecified; J44.9 Chronic obstructive pulmonary disease, unspecified; F03.90 Unspecified dementia, unspecified severity, without behavioral disturbance, psychotic disturbance, mood disturbance, and anxiety; Z79.899 Other long term (current) drug therapy; Z79.01 Long term (current) use of anticoagulants; F17.210 Nicotine dependence, cigarettes, uncomplicated
CPT/HCPCS: 36415; 36600; 71045; 71250; 80051; 80053; 80162; 81003; 82330; 82805; 84443; 85025; 86618; 86666; 86757; 93005; 99285

== ENCOUNTER → 2024-10-15 10:57 | Outpatient (BNVA) | payer MEDICARE, SELFPAY | PROVIDERS: PCP Nurse Practitioner Family; Visit Provider Nurse Practitioner Family | DX: I50.9 Heart failure, unspecified (principal); I48.91 Unspecified atrial fibrillation; Z79.4 Long term (current) use of insulin; I95.9 Hypotension, unspecified; E11.9 Type 2 diabetes mellitus without complications; J44.9 Chronic obstructive pulmonary disease, unspecified; Z72.0 Tobacco use; Z79.01 Long term (current) use of anticoagulants; I10 Essential (primary) hypertension | CPT/HCPCS: 36415; 80048; 80162; 83036; 85025; 99214 ==

== ENCOUNTER → 2025-02-05 15:00 | Outpatient (BNVA) | payer MEDICARE, SELFPAY | PROVIDERS: PCP Nurse Practitioner Family; Visit Provider Internal Medicine Cardiovascular Disease | DX: Z79.01 Long term (current) use of anticoagulants (principal); R06.02 Shortness of breath; E78.5 Hyperlipidemia, unspecified; I50.9 Heart failure, unspecified; I48.91 Unspecified atrial fibrillation; E78.2 Mixed hyperlipidemia; I10 Essential (primary) hypertension; E11.9 Type 2 diabetes mellitus without complications; Z79.4 Long term (current) use of insulin; D64.9 Anemia, unspecified | CPT/HCPCS: 36415; 80048; 80076; 83880; 85025; 99214 ==

== ENCOUNTER → 2025-02-24 12:03 | Outpatient (BNVA) | payer MEDICARE, SELFPAY | PROVIDERS: PCP Nurse Practitioner Family; Visit Provider Internal Medicine Cardiovascular Disease | DX: I50.9 Heart failure, unspecified (principal); N18.30 Chronic kidney disease, stage 3 unspecified | CPT/HCPCS: 80048 ==

== ENCOUNTER 2025-03-02 11:36 | Emergency (ER) | payer MEDICARE, SELFPAY ==
--- NOTE | 2025-03-02 11:37 | XRR_ITS ---
PROCEDURE INFORMATION: Exam: XR Right Shoulder Exam date and time: 03/02/2025 11:41 AM Age: 79 years old Clinical indication: Right shoulder pain following Injury or trauma; Other: Not specified; Blunt trauma (contusions or hematomas); Shoulder; Right TECHNIQUE: Imaging protocol: Radiologic exam of the right shoulder. Views: 2 or more views. COMPARISON: CT chest wo con [id number] 06/04/2024 6:18 PM FINDINGS: Bones/joints: There is an acute fracture of the right humeral neck and posterolateral humeral head, without evidence of significant displacement on these views. No evidence of dislocation at the glenohumeral joint. Normal alignment at the AC joint. Soft tissues: No pathologic soft tissue calcifications are seen. XR/XR shoulder RT min 2V* [id number] IMPRESSION: Acute right humeral head/neck fracture.
[2025-03-02 11:38] VITALS: BP 111/73; PULSE 121; RESP 16; TEMP 36.8; O2SAT 99; BMI 21.2
--- NOTE | 2025-03-02 11:55 | CT_ITS ---
WS: [id number] CT HEAD NONCONTRAST HISTORY: Trauma TECHNIQUE: Contiguous axial imaging performed through the brain. Bone and soft tissue windows. Sagittal and coronal reformats reviewed. All CT scans at [facility] use at least one of these dose optimization techniques: automated exposure control; mA and/or kV adjustment per patient size (includes targeted exams where dose is matched to clinical indication); or iterative reconstruction. DLP: 1243.41 mGy.cm COMPARISON: 03/08/2024 No acute intracranial hemorrhage, midline shift or mass effect. Moderate atrophy greatest involving the temporal and frontal lobes. Moderate cerebellar atrophy. Moderate small vessel ischemic changes. No new area of effacement. Ventricles: Diffusely enlarged ventricles probably on the basis of atrophy. No inferior displacement of the cerebellar tonsils. Paranasal sinuses: As visualized are clear. Mastoid air cells: Well pneumatized. Calvarium and scalp: Skull is intact with no soft tissue edema or swelling. CT/CT head wo con* [id number] IMPRESSION: 1. No acute intracranial hemorrhage or edema. 2. Ventriculomegaly is stable. Probably on the basis of atrophy. 3. Diffuse cerebral and cerebellar volume loss.
--- NOTE | 2025-03-02 11:55 | CT_ITS ---
WS: [id number] CT CERVICAL SPINE HISTORY: Trauma TECHNIQUE: Contiguous 2.0 mm axial imaging performed through the entire cervical spine. Sagittal and coronal reformats also performed. All CT scans at [facility] use at least one of these dose optimization techniques: automated exposure control; mA and/or kV adjustment per patient size (includes targeted exams where dose is matched to clinical indication); or iterative reconstruction. DLP: 1243.41 mGy.cm COMPARISON: None available. Normal cervical alignment. Marked narrowing of the predental space. Craniocervical junction is normal. Facet joints are normally aligned. Lateral masses of C1 and C2 are aligned. C2-C3: Bilateral facet joint arthropathy. C3-C4: Central disc protrusion, mild bilateral foraminal stenosis and facet arthritis. C4-C5: Annular disc bulging, facet arthritis and mild foraminal stenosis. C5-C6: Osteophytic ridging, severe LEFT and mild RIGHT foraminal stenosis. C6-C7: Osteophytic ridging. Mild central and moderate bilateral foraminal stenosis. C7-T1: Mild bilateral foraminal stenosis, RIGHT greater than LEFT. Emphysematous changes at the lung apices. Heavy calcification through the intracranial carotid arteries. CT/CT cervical spin wo con* [id number] IMPRESSION: 1. No cervical spine acute fracture. 2. Multilevel areas of facet joint arthropathy and foraminal stenosis as above .
--- NOTE | 2025-03-02 11:58 | W.ED.EXTPRO ---
HPI - Extremity Problem General: Chief complaint: Extremity Injury, Upper Stated complaint: fall - right shoulder pain Time Seen by Provider: 03/02/25 11:37 History of Present Illness: 79-year-old female presents to the emergency room by ambulance after a fall at home. Patient a ground-level mechanical fall while trying to sit in a chair she is on anticoagulants. She does have a small amount of bruising on her right lutheran as well as some abrasion bruising and swelling in her proximal right humerus. She denies loss of consciousness. She does have a history of dementia family member at the bedside assist with history. She denies any other injuries. Related Data Home Medications ?Medication ?Instructions ?Recorded ?Confirmed albuterol sulfate 2.5 mg/3 mL 2.5 mg inhalation Q4H PRN 12/29/19 03/02/25 (0.083 %) solution for nebulization Shortness Of Breath pantoprazole 40 mg tablet,delayed 40 mg PO QPM 04/10/20 03/02/25 release cholecalciferol (vitamin D3) 10 10 mcg PO DAILY 07/18/22 03/02/25 mcg (400 unit) tablet budesonide 0.5 mg/2 mL suspension 0.5 mg inhalation BID PRN 10/10/23 03/02/25 for nebulization (Pulmicort) Shortness Of Breath metformin 500 mg tablet,extended 500 mg PO QAM 10/15/24 03/02/25 release 24 hr trazodone 50 mg tablet 75 mg PO BEDTIME 02/05/25 03/02/25 amlodipine 2.5 mg tablet 2.5 mg PO DAILY PRN bp 03/02/25 03/02/25 lisinopril 10 mg tablet 10 mg PO DAILY PRN bp 03/02/25 03/02/25 Previous Rx's ?Medication ?Instructions ?Recorded metoprolol tartrate 25 mg tablet 25 mg PO BID #60 tabs 04/10/20 alprazolam 0.5 mg tablet 0.25 mg (1/2 x 0.5 mg) PO TID PRN 03/13/24 Anxiety #30 tabs digoxin 125 mcg (0.125 mg) tablet 0.0625 mcg (0.0005 x 125 mcg 03/13/24 (0.125 mg)) PO EVERY OTHER DAY #1 tab escitalopram oxalate 10 mg tablet 10 mg PO DAILY #90 tabs 03/13/24 furosemide 20 mg tablet (Lasix) 10 mg (1/2 x 20 mg) PO .every 09/03/24 other day #60 tabs apixaban 5 mg tablet (Eliquis) 2.5 mg (1/2 x 5 mg) PO BID #90 tabs 02/05/25 furosemide 20 mg tablet 20 mg PO DAILY fluid build up 10 02/10/25 days #10 tabs hydrocodone 5 mg-acetaminophen 325 1 tab PO Q8H PRN pain #12 tabs 03/02/25 mg tablet Allergies Allergy/AdvReac Type Severity Reaction Status Date / Time Penicillins Allergy Intermediate Unknown Verified 10/15/24 11:06 amlodipine AdvReac hypotension Verified 02/05/25 15:44 Review of Systems Musc: Reports: extremity pain and extremity swelling PFS ED PFSH: Medical History CKD (chronic kidney disease) stage 3, GFR 30-59 ml/min Weight loss Chest pain Multiple sclerosis Type 2 diabetes mellitus Anxiety and depression Hyperlipidemia Hypertension COPD (chronic obstructive pulmonary disease) Surgical History History of appendectomy Family History Other Diabetes Hypertension Social History Smoking and tobacco/nicotine status: former use of tobacco/nicotine Quit status (tobacco/nicotine): considering quitting Alcohol intake: never Substance/Drug Use: never Lives independently: Yes Household members: spouse Marital status: Current occupational status: unemployed Do you think of yourself as: Straight/Heterosexual Current gender identity: Female Physical Exam Const: ORIENTATION/CONSCIOUSNESS: Yes awake, Yes oriented to person, Yes oriented to place and Yes oriented to time HENMT: COMMON NORMALS: normocephalic and hearing grossly normal bilaterally HEAD & SCALP: normocephalic OTHER: Abrasion and ecchymosis from proximal anterior right humerus obvious deformity consistent with proximal humerus fracture confirmed on x-ray Resp: COMMON NORMALS: normal respiratory effort, No retractions, No use of accessory muscles and clear to auscultation bilaterally AUSCULTATION: clear to auscultation bilaterally Cardio: COMMON NORMALS: regular rate, regular rhythm and No murmurs present (Cardio) RATE: regular rate RHYTHM: regular rhythm GI: COMMON NORMALS: Soft to palpation and No hepatosplenomegaly present AUSCULTATION: Yes normoactive bowel sounds PALPATION: Yes Soft to palpation, No Tenderness to palpation present (GI), No Guarding due to palpation present (GI) and Yes No hepatosplenomegaly present Extremity: OTHER: Abrasion and ecchymosis from proximal anterior right humerus obvious deformity consistent with proximal humerus fracture confirmed on x-ray Neuro: SENSORIUM/ORIENTATION: Yes oriented to person, Yes oriented to place and Yes oriented to time Skin: COMMON NORMALS: no rashes or lesions noted GENERAL SKIN EXAM: no rashes or lesions noted Course Vital Signs: Vital signs: Vital Signs Temperature 98.2 F 03/02/25 11:38 Pulse Rate 96 03/02/25 13:51 Respiratory Rate 16 03/02/25 11:38 Blood Pressure 129/79 03/02/25 13:51 Pulse Oximetry 97 03/02/25 13:51 Oxygen Delivery Me thod Nasal Cannula 03/02/25 11:38 Oxygen Flow Rate 2 03/02/25 11:38 MDM - Extremity (Nontraumatic) Medical Decision Making Differential diagnosis includes humerus fracture shoulder dislocation clavicle fracture intracranial bleed such as subdural hematoma or subarachnoid hemorrhage from fall. Also includes cervical spine injury. Only significant finding is that of anemia and her proximal right humerus fracture CT head and neck are negative. Patient essentially at her baseline at this point. She does have a right proximal humerus fracture. Discharged home in arm sling will have her follow-up with orthopedics prescribed hydrocodone for pain. Hold Eliquis for the next 2 days. She is slightly worsened on her anemia this should be rechecked with her primary care doctor before restarting the Eliquis. Return if she has further problems. Medical Records I reviewed the patient's medical records. Lab Data I reviewed the patient's lab results. 03/02/25 13:05 03/02/25 13:05 Radiology Impressions Shoulder X-Ray 03/02/25 11:37 IMPRESSION: Acute right humeral head/neck fracture. Cervical Spine CT 03/02/25 11:55 IMPRESSION: 1. No cervical spine acute fracture. 2. Multilevel areas of facet joint arthropathy and foraminal stenosis as above. Head CT 03/02/25 11:55 IMPRESSION: 1. No acute intracranial hemorrhage or edema. 2. Ventriculomegaly is stable. Probably on the basis of atrophy. 3. Diffuse cerebral and cerebellar volume loss. Laboratory Results WBC 8.74 10^3/uL (3.29-11.43) 03/02/25 13:05 RBC 3.23 10^6/uL (3.85-5.65) L 03/02/25 13:05 Hgb 8.00 g/dL (11.27-16.99) L 03/02/25 13:05 Hct 29.1 % (36-47) L 03/02/25 13:05 MCV 90.1 fl (85-98) 03/02/25 13:05 MCH 24.8 pg (27-33) L 03/02/25 13:05 MCHC 27.5 g/dL (30-55) L 03/02/25 13:05 RDW 15.2 % (12.1-15.1) H 03/02/25 13:05 Plt Count 235 10^3/cmm (157-399) 03/02/25 13:05 MPV 9.7 fL (7.4-10.4) 03/02/25 13:05 Neut % (Auto) 82.6 % 03/02/25 13:05 Lymph % (Auto) 8.1 % 03/02/25 13:05 [place] % (Auto) 7.4 % 03/02/25 13:05 Eos % (Auto) 0.9 % 03/02/25 13:05 Baso % (Auto) 0.7 % 03/02/25 13:05 Neut # (Auto) 7.21 10^3/uL (1.8-7.7) 03/02/25 13:05 Lymph # (Auto) 0.7 10^3/uL (0.8-4.8) L 03/02/25 13:05 [place] # (Auto) 0.7 10^3/uL (0.2-0.9) 03/02/25 13:05 Eos # (Auto) 0.1 10^3/uL (0.0-0.8) 03/02/25 13:05 Baso # (Auto) 0.1 10^3/uL (0.0-0.1) 03/02/25 13:05 Nucleated RBC % (auto) 0 % 03/02/25 13:05 Nucleated RBCs # 0.0 /100WBC 03/02/25 13:05 Sodium 137 mmol/L (136-145) 03/02/25 13:05 Potassium 4.9 mmol/L (3.5-5.1) 03/02/25 13:05 Chloride 91 mmol/L (98-107) L 03/02/25 13:05 Carbon Dioxide 34 mmol/L (22-29) H 03/02/25 13:05 Anion Gap 16.9 (5-19) 03/02/25 13:05 BUN 28 mg/dL (8-23) H 03/02/25 13:05 Creatinine 2.1 mg/dL (0.5-0.9) H 03/02/25 13:05 GFR Calculation Not Reportable 03/02/25 13:05 Glucose 234 mg/dL (65-115) H 03/02/25 13:05 Calculated Osmolality 297 mOsm/kg (285-295) H 03/02/25 13:05 Calcium 9.4 mg/dL (8.5-10.5) 03/02/25 13:05 Total Bilirubin 0.2 mg/dL (0.15-1.2) 03/02/25 13:05 AST 12 U/L (0-32) 03/02/25 13:05 ALT < 5 U/L (0-33) 03/02/25 13:05 Alkaline Phosphatase 79 U/L (35-105) 03/02/25 13:05 Total Protein 7.2 g/dL (6.6-8.7) 03/02/25 13:05 Albumin 3.8 g/dL (3.5-5.2) 03/02/25 13:05 Globulin 3.4 g/dL (1.3-4.6) 03/02/25 13:05 All radiology interpretation(s) finalized by discharge Discharge Plan Discharge Patient Disposition: Home Clinical Impression: Fracture of humerus, CKD (chronic kidney disease) stage 3, GFR 30-59 ml/min, Chronic anemia Atrial fibrillation Qualifiers: Atrial fibrillation type: unspecified Qualified Code(s): I48.91 - Unspecified atrial fibrillation Condition: Stable Prescriptions: New hydrocodone-acetaminophen 5-325 mg tablet 1 tab PO Q8H PRN (Reason: pain) Qty: 12 0RF No Action cholecalciferol (vitamin D3) 10 mcg (400 unit) tablet 10 mcg PO DAILY budesonide [Pulmicort] 0.5 mg/2 mL suspension for nebulization 0.5 mg INHALATION BID PRN (Reason: Shortness Of Breath) trazodone 50 mg tablet 75 mg PO BEDTIME Eliquis 5 mg tablet 2.5 mg PO BID Qty: 90 3RF furosemide [Lasix] 20 mg tablet 10 mg PO .every other day Qty: 60 3RF furosemide 20 mg tablet 20 mg PO DAILY 10 Days Qty: 10 0RF albuterol sulfate 2.5 mg /3 mL (0.083 %) solution for nebulization 2.5 mg inhalation Q4H PRN (Reason: Shortness Of Breath) metformin 500 mg tablet extended release 24 hr 500 mg PO QAM pantoprazole 40 mg tablet,delayed release (DR/EC) 40 mg PO QPM metoprolol tartrate 25 mg Tablet 25 mg PO BID Qty: 60 0RF alprazolam 0.5 mg tablet 0.25 mg PO TID PRN (Reason: Anxiety) Qty: 30 0RF digoxin 125 mcg (0.125 mg) tablet 0.0625 mcg PO EVERY OTHER DAY Qty: 1 0RF Rx Instructions: Dose change only escitalopram oxalate 10 mg tablet 10 mg PO DAILY Qty: 90 0RF amlodipine 2.5 mg tablet 2.5 mg PO DAILY PRN (Reason: bp) lisinopril 10 mg tablet 10 mg PO DAILY PRN (Reason: bp) Discharge Orders: Discharge ED (Routine); Ordered 03/02/25 Ordered By: Alli Blanco Referrals: Reva Govea APN [Primary Care Provider] - Discharge Diet: Usual diet Discharge Activity: Limit activity as instructed Patient Instructions: Opioid Safety, Pain Management Activity Restrictions/Additional Instructions: Thank you for choosing [facility] for your healthcare needs today. It is very important that you follow up as instructed or that you return to the Emergency Department should you have concerns or if your condition changes or worsens in any way. You were seen in the emergency room after a fall CT of your head and neck were negative. You do have chronic anemia your hemoglobin is slightly lower today this should be rechecked in 2 to 3 days in your doctor's office. You are also noted to have a proximal humerus fracture. 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
[2025-03-02 13:10] LABS: Basophils # 0.1 10^3/uL (0.0-0.1); Basophils % 0.7 %; Eosinophils # 0.1 10^3/uL (0.0-0.8); Eosinophils % 0.9 %; Hematocrit 29.1 % (36-47); Lymphocytes # 0.7 10^3/uL (0.8-4.8); Lymphocytes % 8.1 %; Mean Corpuscular HGB Conc 27.5 g/dL (30-55); Mean Corpuscular Hemoglobin 24.8 pg (27-33); Mean Corpuscular Volume 90.1 fl (85-98); Mean Platelet Volume 9.7 fL (7.4-10.4); Monocytes # 0.7 10^3/uL (0.2-0.9); Monocytes % 7.4 %; Neutrophils # 7.21 10^3/uL (1.8-7.7); Neutrophils % 82.6 %; Nucleated Red Blood Cells % 0 %; Platelet Count 235 10^3/cmm (157-399); Red Blood Count 3.23 10^6/uL (3.85-5.65); Red Cell Distribution Width 15.2 % (12.1-15.1); White Blood Count 8.74 10^3/uL (3.29-11.43)
--- NOTE | 2025-03-02 13:22 | ECG_ITS ---
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 Measurements Intervals Dawn Rate: 114 P: 0 NC: 0 QRS: 51 QRSD: 76 T: 69 QT: 281 QTc: 387 Interpretive Statements ATRIAL FIBRILLATION WITH RAPID VENTRICULAR RESPONSE SEPTAL MYOCARDIAL INFARCTION , PROBABLY OLD [40+ ms Q WAVE IN V1/V2] Compared to ECG 06/04/2024 16:35:28 No significant changes Electronically Signed On 03-02-2025 21:30:15 CDT by Wily Mayfield M.D. [email or web address]
[2025-03-02 13:31] LABS: Alanine Aminotransferase < 5 U/L (0-33); Albumin Level 3.8 g/dL (3.5-5.2); Alkaline Phosphatase 79 U/L (35-105); Anion Gap 16.9 (5-19); Aspartate Amino Transferase 12 U/L (0-32); Blood Urea Nitrogen 28 mg/dL (8-23); Calcium 9.4 mg/dL (8.5-10.5); Carbon Dioxide 34 mmol/L (22-29); Chloride 91 mmol/L (98-107); Creatinine Clr Calc Pharmacy 21.1417; Globulin 3.4 g/dL (1.3-4.6); Glucose 234 mg/dL (65-115); Osmolality Calculated 297 mOsm/kg (285-295); Potassium 4.9 mmol/L (3.5-5.1); Sodium 137 mmol/L (136-145); Total Bilirubin 0.2 mg/dL (0.15-1.2); Total Protein 7.2 g/dL (6.6-8.7)
[2025-03-02 13:51] VITALS: BP 129/79; PULSE 96; O2SAT 97
--- NOTE | 2025-03-02 14:11 | DCPLANNER ---
messaged ortho for er f/u
[2025-03-02 17:37] LABS: NT Pro B Type Natriuretic Pept 5073 pg/mL (0-450)
== END 2025-03-02 13:53 | disposition home or self-care (01) ==
PROVIDERS: Internal Medicine Cardiovascular Disease; Emergency Provider Family Medicine; PCP Nurse Practitioner Family
DX: S42.211A Unspecified displaced fracture of surgical neck of right humerus, initial encounter for closed fracture (principal); D64.9 Anemia, unspecified; I48.91 Unspecified atrial fibrillation; J44.9 Chronic obstructive pulmonary disease, unspecified; E78.5 Hyperlipidemia, unspecified; E11.22 Type 2 diabetes mellitus with diabetic chronic kidney disease; I12.9 Hypertensive chronic kidney disease with stage 1 through stage 4 chronic kidney disease, or unspecified chronic kidney disease; N18.30 Chronic kidney disease, stage 3 unspecified; W19.XXXA Unspecified fall, initial encounter
CPT/HCPCS: 36415; 70450; 72125; 73030; 80053; 83880; 85025; 93005; 99285

== ENCOUNTER → 2025-03-05 15:46 | Outpatient (BNVA) | payer MEDICARE, SELFPAY | PROVIDERS: PCP Nurse Practitioner Family; Visit Provider Orthopaedic Surgery | DX: S42.301A Unspecified fracture of shaft of humerus, right arm, initial encounter for closed fracture (principal); X58.XXXA Exposure to other specified factors, initial encounter | CPT/HCPCS: 73060; 99203 ==

== ENCOUNTER 2025-03-12 16:42 | Outpatient (CLI) | payer MEDICARE, SELFPAY ==
--- NOTE | 2025-03-12 16:48 | XR_ITS ---
WS: [id number] Exam: [place] [id number] Date/Time of Exam: 03/12/2025 4:53 PM Reason For Exam: FRACTURE Comparison 03/05/2027. Again noted is fracture of the surgical neck and head of the humerus. There has been some medial displacement of the humeral neck when compared to the last study. DJD at the AC joint and glenohumeral joint. XR/[place] [id number] IMPRESSION: 1. Fracture of the surgical neck and head of the humerus. There has been some m edial displacement of the humeral neck since the prior study.
== END 2025-03-12 16:43 | disposition home or self-care (01) ==
LOC: RAD 16:44
PROVIDERS: PCP Nurse Practitioner Family; Visit Provider Registered Nurse Neonatal Intensive Care
DX: S42.211D Unspecified displaced fracture of surgical neck of right humerus, subsequent encounter for fracture with routine healing (principal); X58.XXXD Exposure to other specified factors, subsequent encounter; M19.011 Primary osteoarthritis, right shoulder; R93.7 Abnormal findings on diagnostic imaging of other parts of musculoskeletal system
CPT/HCPCS: 73060

== ENCOUNTER → 2025-03-19 15:42 | Outpatient (BNVA) | payer MEDICARE, SELFPAY | PROVIDERS: PCP Nurse Practitioner Family; Visit Provider Orthopaedic Surgery | DX: S42.291D Other displaced fracture of upper end of right humerus, subsequent encounter for fracture with routine healing (principal); X58.XXXD Exposure to other specified factors, subsequent encounter | CPT/HCPCS: 36415; 73020; 73060; 80048; 83880; 99213 ==

== ENCOUNTER → 2025-04-02 15:49 | Outpatient (BNVA) | payer MEDICARE, SELFPAY | PROVIDERS: PCP Nurse Practitioner Family; Visit Provider Orthopaedic Surgery | DX: S42.291D Other displaced fracture of upper end of right humerus, subsequent encounter for fracture with routine healing (principal); X58.XXXD Exposure to other specified factors, subsequent encounter | CPT/HCPCS: 73030; 99213 ==

== ENCOUNTER → 2025-04-30 16:01 | Outpatient (BNVA) | payer MEDICARE, SELFPAY | PROVIDERS: PCP Nurse Practitioner Family; Visit Provider Orthopaedic Surgery | DX: S42.291D Other displaced fracture of upper end of right humerus, subsequent encounter for fracture with routine healing (principal); X58.XXXD Exposure to other specified factors, subsequent encounter | CPT/HCPCS: 73030 ==

== ENCOUNTER 2025-04-30 16:31 | Outpatient (CLI) | payer MEDICARE, SELFPAY ==
[2025-04-30 17:19] LABS: Anion Gap 16.5 (5-19); Blood Urea Nitrogen 31 mg/dL (8-23); Calcium 9.4 mg/dL (8.5-10.5); Carbon Dioxide 34 mmol/L (22-29); Chloride 94 mmol/L (98-107); Glucose 169 mg/dL (65-115); NT Pro B Type Natriuretic Pept 4244 pg/mL (0-450); Osmolality Calculated 300 mOsm/kg (285-295); Potassium 4.5 mmol/L (3.5-5.1); Sodium 140 mmol/L (136-145)
== END 2025-04-30 16:32 | disposition home or self-care (01) ==
PROVIDERS: PCP Nurse Practitioner Family; Visit Provider Internal Medicine Cardiovascular Disease
DX: N18.30 Chronic kidney disease, stage 3 unspecified (principal); I50.9 Heart failure, unspecified; S42.291D Other displaced fracture of upper end of right humerus, subsequent encounter for fracture with routine healing; X58.XXXD Exposure to other specified factors, subsequent encounter
CPT/HCPCS: 36415; 80048; 83880; 99213

== ENCOUNTER → 2025-05-28 11:10 | Outpatient (BNVA) | payer MEDICARE, SELFPAY | PROVIDERS: PCP Nurse Practitioner Family; Visit Provider Orthopaedic Surgery | DX: S42.291D Other displaced fracture of upper end of right humerus, subsequent encounter for fracture with routine healing (principal); X58.XXXD Exposure to other specified factors, subsequent encounter; I50.9 Heart failure, unspecified; R06.02 Shortness of breath | CPT/HCPCS: 36415; 73030; 80048; 80162; 83880; 99213 ==

== ENCOUNTER → 2025-06-22 11:02 | Outpatient (BNVA) | payer MEDICARE, SELFPAY | PROVIDERS: PCP Nurse Practitioner Family; Visit Provider Nurse Practitioner Family | DX: I13.0 Hypertensive heart and chronic kidney disease with heart failure and stage 1 through stage 4 chronic kidney disease, or unspecified chronic kidney disease (principal); N18.30 Chronic kidney disease, stage 3 unspecified; I50.9 Heart failure, unspecified; I48.91 Unspecified atrial fibrillation; Z79.01 Long term (current) use of anticoagulants; E78.5 Hyperlipidemia, unspecified; E11.9 Type 2 diabetes mellitus without complications; Z79.84 Long term (current) use of oral hypoglycemic drugs; D64.89 Other specified anemias; I10 Essential (primary) hypertension; E78.2 Mixed hyperlipidemia | CPT/HCPCS: 36415; 80048; 83880; 85025; 99214 ==

== ENCOUNTER 2025-10-06 15:14 | Inpatient (IN) | payer MEDICARE, SELFPAY ==
[2025-10-06] VITALS (8 sets, daily range): BP systolic 136–156; BP diastolic 72–96; PULSE 107–165; RESP 18–25; TEMP 37.1; O2SAT 93–96; BMI 19.4
--- NOTE | 2025-10-06 15:17 | XRR_ITS ---
PROCEDURE INFORMATION: Exam: XR Left Hip Exam date and time: 10/06/2025 3:21 PM Age: 79 years old Clinical indication: Injury or trauma; Fall; Blunt trauma (contusions or hematomas); Left; Hip; Additional info: Fall, left hip pain. With pelvis TECHNIQUE: Imaging protocol: Radiologic exam of the left hip. Views: 2 or 3 views hip with pelvis when performed. COMPARISON: No relevant prior studies available. FINDINGS: Bones/joints: Subcapital fracture of the proximal left femur with upward overriding and mild angulation. Moderate degenerative changes of the hip with narrowing of the articular surface and mild marginal spurring. Soft tissues: Unremarkable. Vasculature: Arterial calcifications noted as well. XR/XR hip LT 2-3V wo/w pel* [id number] IMPRESSION: Subcapital fracture of the proximal left femur.
--- NOTE | 2025-10-06 15:22 | XRR_ITS ---
PROCEDURE INFORMATION: Exam: XR Chest Exam date and time: 10/06/2025 3:21 PM Age: 79 years old Clinical indication: Injury or trauma; Fall; Blunt trauma (contusions or hematomas); Additional info: Hip injury TECHNIQUE: Imaging protocol: Radiologic exam of the chest. Views: 1 view. COMPARISON: CT chest con [id number] 06/04/2024 6:18 PM FINDINGS: Lungs: Emphysematous COPD. Mild linear atelectasis or fibrosis in the left midlung. Pleural spaces: Unremarkable. No pleural effusion. No pneumothorax. Heart/Mediastinum: Unremarkable. No cardiomegaly. Vasculature: Uncoiling of the thoracic aorta. Bones/joints: Unremarkable. XR/XR chest 1V portable [id number] IMPRESSION: No acute findings.
--- NOTE | 2025-10-06 15:23 | W.ED.LOWEXIN ---
HPI - Extremity Injury (Lower) General: Chief Complaint: Fall Stated Complaint: Fall, Lt hip Pain Time Seen by Provider: 10/06/25 15:17 History of Present Illness: 79-year-old female with a history of atrial fibrillation, chronic anticoagulation on Eliquis, multiple sclerosis, type 2 diabetes, hyperlipidemia, hypertension and COPD who presents to the emergency room after having had a fall with severe left hip pain. She appears to have some shortening. She does not want to straighten out the leg. No head injury. No loss of consciousness. No chest pain. No abdominal pain. No altered mental status. Related Data Home Medications ?Medication ?Instructions ?Recorded ?Confirmed albuterol sulfate 2.5 mg/3 mL 2.5 mg inhalation Q4H PRN 12/29/19 06/22/25 (0.083 %) solution for nebulization Shortness Of Breath pantoprazole 40 mg tablet,delayed 40 mg PO QPM 04/10/20 06/22/25 release cholecalciferol (vitamin D3) 10 10 mcg PO DAILY 07/18/22 06/22/25 mcg (400 unit) tablet budesonide 0.5 mg/2 mL suspension 0.5 mg inhalation BID PRN 10/10/23 06/22/25 for nebulization (Pulmicort) Shortness Of Breath metformin 500 mg tablet,extended 500 mg PO QAM 10/15/24 06/22/25 release 24 hr trazodone 50 mg tablet 75 mg PO BEDTIME 02/05/25 06/22/25 Previous Rx's ?Medication ?Instructions ?Recorded metoprolol tartrate 25 mg tablet 25 mg PO BID #60 tabs 04/10/20 alprazolam 0.5 mg tablet 0.25 mg (1/2 x 0.5 mg) PO TID PRN 03/13/24 Anxiety #30 tabs digoxin 125 mcg (0.125 mg) tablet 0.0625 mcg (0.0005 x 125 mcg 03/13/24 (0.125 mg)) PO EVERY OTHER DAY #1 tab escitalopram oxalate 10 mg tablet 10 mg PO DAILY #90 tabs 03/13/24 furosemide 20 mg tablet (Lasix) 10 mg (1/2 x 20 mg) PO .every 09/03/24 other day #60 tabs apixaban 5 mg tablet (Eliquis) 2.5 mg (1/2 x 5 mg) PO BID #90 tabs 02/05/25 hydrocodone 5 mg-acetaminophen 325 1 tab PO Q8H PRN pain #12 tabs 03/02/ mg tablet potassium chloride 8 mEq 8 meq PO DAILY #90 caps 03/03/25 capsule,extended release furosemide 40 mg tablet 60 mg (1.5 x 40 mg) PO DAILY fluid 08/27/25 build up #90 tabs Allergies Allergy/AdvReac Type Severity Reaction Status Date / Time Penicillins Allergy Intermediate Unknown Verified 06/22/25 11:07 Review of Systems Narrative: Constitutional symptoms: Negative except as documented in HPI. Skin symptoms: Negative except as documented in HPI. Eye symptoms: Negative except as documented in HPI. ENMT symptoms: Negative except as documented in HPI. Respiratory symptoms: Negative except as documented in HPI. Cardiovascular symptoms: Negative except as documented in HPI. Gastrointestinal symptoms: Negative except as documented in HPI. Genitourinary symptoms: Negative except as documented in HPI. Musculoskeletal symptoms: Negative except as documented in HPI. Neurologic symptoms: Negative except as documented in HPI. Psychiatric symptoms: Negative except as documented in HPI. Endocrine symptoms: Negative except as documented in HPI. PFSH ED PFSH: Medical History (Updated 10/06/25 @ 18:52 by Caro Breen MD) CKD (chronic kidney disease) stage 3, GFR 30-59 ml/min Weight loss Chest pain Multiple sclerosis Type 2 diabetes mellitus Anxiety and depression Hyperlipidemia Hypertension COPD (chronic obstructive pulmonary disease) Surgical History History of appendectomy Family History Other Diabetes Hypertension Social History Smoking and tobacco/nicotine status: never used tobacco/nicotine Quit status (tobacco/nicotine): considering quitting Alcohol intake: never Substance/Drug Use: never Lives independently: Yes Household members: spouse Marital status: Current occupational status: unemployed Do you think of yourself as: Straight/Heterosexual Current gender identity: Female Physical Exam Narrative: EXAM NARRATIVE: General: Alert, no acute distress. Skin: Warm, dry. Head: Normocephalic, atraumatic. Neck: Supple, trachea midline. Eye: Extraocular movements are intact. Ears, nose, mouth and throat: mucosa moist. Cardiovascular: Irregular, tachycardic, Normal peripheral perfusion. Respiratory: Lungs are clear to auscultation, respirations are non-labored, breath sounds are equal, Symmetrical chest wall expansion. Gastrointestinal: Soft, Nontender, Non distended Musculoskeletal: Keeping knee flexed but has severe pain in her left hip with any movement. Neurological: Alert and oriented, No focal neurological deficit observed. Psychiatric: Cooperative, appropriate mood & affect. Course Vital Signs: Vital signs: Vital Signs Temperature 98.8 F 10/06/25 15:25 Pulse Rate 117 H 10/06/25 17:49 Respiratory Rate 18 10/06/25 18:31 Blood Pressure 154/72 10/06/25 17:49 Pulse Oximetry 95 10/06/25 17:49 Oxygen Delivery Me thod Room Air 10/06/25 17:49 Oxygen Flow Rate 2 10/06/25 15:25 MDM - Extremity Injury (Lower) Medical Decision Making Medical decision making Patient's reason for coming to the emergency room: Left hip pain Social determinants: Patient lives at home. Retired. I reviewed the patient's medical record. 79-year-old female with a history of atrial fibrillation, chronic anticoagulation on Eliquis, multiple sclerosis, type 2 diabetes, hyperlipidemia, hypertension and COPD I reviewed the patient's current home meds Patient is on Eliquis Alternate historians: Family also provides some history Differential diagnosis for patient with fall and hip pain with deformity including but not limited to and based on the above HPI, review of systems and physical exam: Hip fracture, femur fracture, pelvic fractures including pubic rami and acetabular fractures, hip strain, hip contusion. X-ray of the left hip: Subcapital fracture of the proximal left femur. This was reviewed and interpreted by myself the emergency room physician. I also reviewed the radiology report. Chest x-ray: No acute process. No infiltrate. No pneumothorax. This was reviewed and interpreted by myself the emergency room physician. I also reviewed the radiology report. EKG: Time 1551. Rate 148. Atrial fibrillation with rapid ventricular response, nonspecific ST changes, no ectopy, This was reviewed and interpreted by myself the ER physician at 1558 Lab Review: Laboratory results were reviewed and interpreted by myself the emergency room physician. No leukocytosis. Stable anemia. Stable chronic renal insufficiency. Urinalysis negative for infection. Consultation: I spoke with Dr. Gallego who is on-call for orthopedics who agrees to consultation and will likely do surgery tomorrow. Consultation: I spoke with Dr. Dr. Way who is on-call for the hospitalist service and agrees to admission Assessment of risk: Level of risk: High risk patient. Elderly. Anticoagulated. Hip fracture with multiple comorbidities Hospitalization considerations: Patient is being admitted Reexamination: Pain is better controlled. No altered mental status. No focal motor deficits. Assessment and plan: Left hip fracture Fall from standing A-fib with RVR Chronic anticoagulation ?Dilaudid and Zofran ? Amiodarone bolus and drip -I discussed the patient with the hospitalist on-call who is admitting the patient. - Discussed findings and plan with patient. Answered any questions. - All laboratory values were reviewed and interpreted personally by myself, the ER physician - All imaging was reviewed and interpreted personally by myself, the ER physician. - Evaluation and treatment of this problem were appropriate in the emergency setting Critical Care: -I spent a total of 36 minutes of critical care time managing the patient, independent of any other practitioner. -The time involved in the performance of separately reportable procedures was not counted towards critical care time. Lab Data 10/06/25 16:21 10/06/25 16:21 Radiology Impressions Hip/Pelvis X-Ray 10/06/25 15:17 IMPRESSION: Subcapital fracture of the proximal left femur. Chest X-Ray 10/06/25 15:22 IMPRESSION: No acute findings. Laboratory Results WBC 8.22 10^3/uL (3.29-11.43) 10/06/25 16:21 RBC 3.23 10^6/uL (3.85-5.65) L 10/06/25 16:21 Hgb 8.60 g/dL (11.27-16.99) L 10/06/25 16:21 Hct 29.7 % (36-47) L 10/06/25 16:21 MCV 92.0 fl (85-98) 10/06/25 16:21 MCH 26.6 pg (27-33) L 10/06/25 16:21 MCHC 29.0 g/dL (30-55) L 10/06/25 16:21 RDW 15.3 % (12.1-15.1) H 10/06/25 16:21 Plt Count 331 10^3/cmm (157-399) 10/06/25 16:21 MPV 9.8 fL (7.4-10.4) 10/06/25 16:21 Neut % (Auto) 84.7 % 10/06/25 16:21 Lymph % (Auto) 6.8 % 10/06/25 16:21 Pine % (Auto) 6.3 % 10/06/25 16:21 Eos % (Auto) 1.3 % 10/06/25 16:21 Baso % (Auto) 0.4 % 10/06/25 16:21 Neut # (Auto) 6.96 10^3/uL (1.8-7.7) 10/06/25 16:21 Lymph # (Auto) 0.6 10^3/uL (0.8-4.8) L 10/06/25 16:21 Pine # (Auto) 0.5 10^3/uL (0.2-0.9) 10/06/25 16:21 Eos # (Auto) 0.1 10^3/uL (0.0-0.8) 10/06/25 16:21 Baso # (Auto) 0.0 10^3/uL (0.0-0.1) 10/06/25 16:21 Nucleated RBC % (auto) 0 % 10/06/25 16:21 Nucleated RBCs # 0.0 /100WBC 10/06/25 16:21 PT 12.80 SECONDS (12.1-14.9) 10/06/25 16:21 INR 0.90 (0.8-1.2) 10/06/25 16:21 APTT 29.9 SECONDS (23.9-36.7) 10/06/25 16:21 Sodium 136 mmol/L (136-145) 10/06/25 16:21 Potassium 4.9 mmol/L (3.5-5.1) 10/06/25 16:21 Chloride 95 mmol/L (98-107) L 10/06/25 16:21 Carbon Dioxide 34 mmol/L (22-29) H 10/06/25 16:21 Anion Gap 11.9 (5-19) 10/06/25 16:21 BUN 25 mg/dL (8-23) H 10/06/25 16:21 Creatinine 2.3 mg/dL (0.5-0.9) H 10/06/25 16:21 GFR Calculation Not Reportable 10/06/25 16:21 Glucose 220 mg/dL (65-115) H 10/06/25 16:21 Calculated Osmolality 293 mOsm/kg (285-295) 10/06/25 16:21 Lactic Acid 1.3 mmol/L (0.5-2.2) 10/06/25 16:21 Calcium 9.2 mg/dL (8.5-10.5) 10/06/25 16:21 Total Bilirubin 0.2 mg/dL (0.15-1.2) 10/06/25 16:21 AST 12 U/L (0-32) 10/06/25 16:21 ALT < 5 U/L (0-33) 10/06/25 16:21 Alkaline Phosphatase 108 U/L (35-105) H 10/06/25 16:21 Total Protein 7.8 g/dL (6.6-8.7) 10/06/25 16:21 Albumin 4.0 g/dL (3.5-5.2) 10/06/25 16:21 Globulin 3.8 g/dL (1.3-4.6) 10/06/25 16:21 Urine Color Yellow (Yellow) 10/06/25 16:35 Urine Appearance Clear (CLEAR) 10/06/25 16:35 Urine pH 5.5 (5-7) 10/06/25 16:35 Ur Specific [place] 1.017 (1.005-1.030) 10/06/25 16:35 Urine Protein Trace (Negative) A 10/06/25 16:35 Urine Glucose (UA) Negative (Normal) 10/06/25 16:35 Urine Ketones Negative (Negative) 10/06/25 16:35 Urine Blood Negative (Negative) 10/06/25 16:35 Urine Nitrate Negative (Negative) 10/06/25 16:35 Urine Bilirubin Negative (Negative) 10/06/25 16:35 Urine Urobilinogen 0.2 mg/dL (Negative) 10/06/25 16:35 Ur Leukocyte Esterase Negative (Negative) 10/06/25 16:35 Urine RBC 0-2 /hpf (0-2) 10/06/25 16:35 Urine WBC 0-5 /hpf (0-5) 10/06/25 16:35 Ur Squamous Epith Cells 0-5 /hpf (0-5) 10/06/25 16:35 Amorphous Sediment Not Reportable 10/06/25 16:35 Urine Bacteria None seen /hpf (NONE) 10/06/25 16:35 Hyaline Casts 20.27 /lpf 10/06/25 16:35 All radiology interpretation(s) finalized by discharge Discharge Plan Discharge Patient Disposition: Admitted As Inpatient Clinical Impression: Closed hip fracture, Fall from standing, Atrial fibrillation with rapid ventricular response, Chronic anticoagulation Condition: Stable Coding Level of Care Code ED Compliance Quality Performance Analyst for Pricilla Lui
[2025-10-06] MEDS: HYDROmorphone 0.5 MG/0.5 ML INJ 1 MG IVP (15:30)
[2025-10-06] MEDS: ondansetron 2 mg/ML SDV 2 mL 4 MG IVP ×2 (15:48→22:50)
--- NOTE | 2025-10-06 15:51 | ECG_ITS ---
[facility] Test Date: 2025-10-06 Pat Name: Deidra De La Torre Department: Room: Gender: Female Tooling Manager: : 1945 Requested By: Caro Rose Order Number: [id number] Magdaleno MD: Wily Mayfield M.D. Measurements Intervals [place] Rate: 148 P: 0 SC: 0 QRS: 56 QRSD: 82 T: 0 QT: 203 QTc: 318 Interpretive Statements ATRIAL FIBRILLATION WITH RAPID VENTRICULAR RESPONSE SEPTAL MYOCARDIAL INFARCTION , PROBABLY OLD [40+ ms Q WAVE IN V1/V2] Compared to ECG 03/02/2025 13:26:40 No significant changes Electronically Signed On 10-07-2025 07:41:04 VESSEL SLAG WORKER by Wily Mayfield M.D. [id number] [id number]
--- NOTE | 2025-10-06 15:59 | NUR.SHIFT ---
PT HEART RATE 160S, PT IN A-FIB. DR. SERNA NOTIFIED
[2025-10-06 16:44] LABS: Hematocrit 29.7 % (36-47); Hemoglobin 8.60 g/dL (11.27-16.99); Mean Corpuscular HGB Conc 29.0 g/dL (30-55); Mean Corpuscular Hemoglobin 26.6 pg (27-33); Mean Corpuscular Volume 92.0 fl (85-98); Nucleated Red Blood Cells % 0 %; Platelet Count 331 10^3/cmm (157-399); Red Blood Count 3.23 10^6/uL (3.85-5.65); White Blood Count 8.22 10^3/uL (3.29-11.43)
[2025-10-06] MEDS: amiodarone 150 MG/100 ML PREMIX 400 MG IV (16:44)
[2025-10-06 16:52] LABS: INR 0.90 (0.8-1.2); Prothrombin Time 12.80 SECONDS (12.1-14.9)
[2025-10-06 16:53] LABS: Partial Thromboplastin Time 29.9 SECONDS (23.9-36.7)
[2025-10-06 16:58] LABS: Glucose Urine UA Negative (Normal); Nitrate Urine Negative (Negative); Specific Gravity, Urine 1.017 (1.005-1.030)
[2025-10-06 17:00] LABS: Alanine Aminotransferase < 5 U/L (0-33); Albumin Level 4.0 g/dL (3.5-5.2); Alkaline Phosphatase 108 U/L (35-105); Anion Gap 11.9 (5-19); Aspartate Amino Transferase 12 U/L (0-32); Blood Urea Nitrogen 25 mg/dL (8-23); Calcium 9.2 mg/dL (8.5-10.5); Carbon Dioxide 34 mmol/L (22-29); Chloride 95 mmol/L (98-107); Globulin 3.8 g/dL (1.3-4.6); Glucose 220 mg/dL (65-115); Osmolality Calculated 293 mOsm/kg (285-295); Potassium 4.9 mmol/L (3.5-5.1); Sodium 136 mmol/L (136-145); Total Protein 7.8 g/dL (6.6-8.7)
[2025-10-06 17:03] LABS: Lactic Sepsis W/Reflex 1.3 mmol/L (0.5-2.2)
[2025-10-06 17:15] LABS: UA Slide Review UA Slide Review Perf
[2025-10-06] MEDS: AMIODARONE HCL/D5W 900 MG/500 ML BAG 33.33 MG IV (17:19)
--- NOTE | 2025-10-06 18:45 | PM.HP ---
Providers/Chief Complaint Primary Care Provider: Reav Govea APN Chief Complaint: Fall, Lt hip Pain History of Present Illness Deidra De La Torre is a 79 year old female with a past medical history of multiple sclerosis, atrial fibrillation on anticoagulant therapy, history of CHF, history of seizure, history of dementia who presents to [facility] for a fall. Currently patient is alert oriented x 2, can follow commands, complains of left hip pain, currently in A-fib with RVR on amiodarone drip, she lives at home with her , who helps with activities of daily living, she had gone into the kitchen, when she had fallen on the left hip, denies hitting her head, denies any fevers, no chills, no dysuria, she does have atrial fibrillation, family members at bedside called her to see if she has taken her Eliquis this morning, and apparently she has not taken her Eliquis or her medications this morning. Review of Systems Card: Denies: chest pain Resp: Denies: dyspnea Medications/Allergies Home Medications ?Medication ?Instructions ?Recorded ?Confirmed ?Last Taken ?Type albuterol sulfate 2.5 mg/3 mL 2.5 mg inhalation Q4H PRN 12/29/19 06/22/25 Unknown History (0.083 %) solution for nebulization Shortness Of Breath metoprolol tartrate 25 mg tablet 25 mg PO BID #60 tabs 04/10/20 06/22/25 03/01/25 Rx pantoprazole 40 mg tablet,delayed 40 mg PO QPM 04/10/20 06/22/25 03/01/25 History release cholecalciferol (vitamin D3) 10 10 mcg PO DAILY 07/18/22 06/22/25 03/01/25 History mcg (400 unit) tablet budesonide 0.5 mg/2 mL suspension 0.5 mg inhalation BID PRN 10/10/23 06/22/25 Unknown History for nebulization (Pulmicort) Shortness Of Breath alprazolam 0.5 mg tablet 0.25 mg (1/2 x 0.5 mg) PO TID PRN 03/13/24 06/22/25 Unknown Rx Anxiety #30 tabs digoxin 125 mcg (0.125 mg) tablet 0.0625 mcg (0.0005 x 125 mcg 03/13/24 06/22/2525 Rx (0.125 mg)) PO EVERY OTHER DAY #1 tab escitalopram oxalate 10 mg tablet 10 mg PO DAILY #90 tabs 03/13/24 06/22/25 03/01/25 Rx furosemide 20 mg tablet (Lasix) 10 mg (1/2 x 20 mg) PO .every 09/03/24 06/22/25 Unknown Rx other day #60 tabs metformin 500 mg tablet,extended 500 mg PO QAM 10/15/24 06/22/25 02/28/25 History release 24 hr apixaban 5 mg tablet (Eliquis) 2.5 mg (1/2 x 5 mg) PO BID #90 tabs 02/05/25 06/22/25 03/01/25 Rx trazodone 50 mg tablet 75 mg PO BEDTIME 02/05/25 06/22/25 03/01/25 History hydrocodone 5 mg-acetaminophen 325 1 tab PO Q8H PRN pain #12 tabs 03/02/25 06/22/25 Unknown Rx mg tablet potassium chloride 8 mEq 8 meq PO DAILY #90 caps 03/03/25 06/22/25 Unknown Rx capsule,extended release furosemide 40 mg tablet 60 mg (1.5 x 40 mg) PO DAILY fluid 08/27/25 Unknown Rx build up #90 tabs Allergies Allergy/AdvReac Type Severity Reaction Status Date / Time Penicillins Allergy Intermediate Unknown Verified 06/22/25 11:07 PFSH Acute PFSH: Medical History CKD (chronic kidney disease) stage 3, GFR 30-59 ml/min Weight loss Chest pain Multiple sclerosis Type 2 diabetes mellitus Anxiety and depression Hyperlipidemia Hypertension COPD (chronic obstructive pulmonary disease) Surgical History History of appendectomy Family History Other Diabetes Hypertension Social History Smoking and tobacco/nicotine status: never used tobacco/nicotine Quit status (tobacco/nicotine): considering quitting Alcohol intake: never Substance/Drug Use: never Lives independently: Yes Household members: spouse Marital status: Current occupational status: unemployed Do you think of yourself as: Straight/Heterosexual Current gender identity: Female Vitals/I&O/Wt Last Vital Signs Temp 98.8 F 10/06/25 15:25 Pulse 117 H 10/06/25 17:49 Resp 18 10/06/25 18:31 BP 154/72 10/06/25 17:49 Pulse Ox 95 10/06/25 17:49 O2 Del Method Room Air 10/06/25 17:49 O2 Flow Rate 2 10/06/25 15:25 10/06/25 10/06/25 10/06/25 06:59 14:59 22:59 Intake Total 100 / 100 Balance 100 / 100 Weight last 48 hrs Weight 53.07 kg Physical Exam Const: COMMON NORMALS: no acute distress ORIENTATION/CONSCIOUSNESS: Yes awake, Yes oriented to person and Yes oriented to place; not oriented to time Eye: COMMON NORMALS: Equal, round and reactive pupils present Resp: COMMON NORMALS: normal respiratory effort, No retractions, No use of accessory muscles and clear to auscultation bilaterally AUSCULTATION: clear to auscultation bilaterally Cardio: COMMON NORMALS: no JVD, regular rate, regular rhythm, S1 normal heart sound present and S2 normal heart sound present RATE: tachycardic RHYTHM: regular rhythm HEART SOUNDS: S1 normal heart sound present and S2 normal heart sound present GI: COMMON NORMALS: Normal to inspection, nondistended, normoactive bowel sounds present, Soft to palpation and non-tender Extremity: COMMON NORMALS: no pedal edema NARRATIVE EXTREMITY EXAM: Left hip pain to palpation, Neuro: COMMON NORMALS: CN's II-XII intact bilaterally Psych: COMMON NORMALS: mental status grossly normal Skin: NARRATIVE SKIN EXAM: No mottling lower extremities, DP PT pulses palpable, no calf pain, no edema Urinary Catheter Management: [place]: Cath Placed During This Visit: yes Reason for Continuing Indwelling Catheter: Required Immobilization for Trauma or Surgery or Anesthesia Urinary Catheter Date of Insertion: 10/06/25 Urinary Catheter Time of Insertion: 17:50 Data 10/06/25 16:21 10/06/25 16:21 A&P Assessment and plan 1. Type 2 diabetes mellitus: 2. CKD (chronic kidney disease) stage 3, GFR 30-59 ml/min: 3. Chronic anemia: 4. Acute kidney injury: 5. Closed left hip fracture: 6. Atrial fibrillation with rapid ventricular response: Plan: Left hip fracture XR/XR hip LT 2-3V wo/w pel* [id number] IMPRESSION: Subcapital fracture of the proximal left femur. Plan - N.p.o. over midnight - Morphine for pain control - Orthopedic consulted Last dose of Eliquis was 10/05/2020 4 in the evening, did not take her Eliquis this morning 1118 Acute kidney injury - IV fluids - Check CPK Type 2 diabetes mellitus, low-dose sliding scale Atrial fibrillation with rapid ventricular response - Amiodarone drip - Metoprolol Full code, confirmed with patient, family at bedside SCDs for DVT prophylaxis, anticoagulation currently on hold as there is plan on surgery tomorrow PDMP PDMP Reviewed: Not Reviewed Attestations Medical Necessity Statement*: Patient requires hospitalization, inpatient, greater than 2 midnights, for left hip fracture, A-fib with RVR Diagnoses Type 2 diabetes mellitus E11.9 CKD (chronic kidney disease) stage 3, GFR 30-59 ml/min N18.30 Chronic anemia D64.9 Acute kidney injury N17.9 Closed left hip fracture S72.002A Atrial fibrillation with rapid ventricular response I48.91
--- NOTE | 2025-10-06 18:46 | CTR_ITS ---
PROCEDURE INFORMATION: Exam: CT Head Without Contrast Exam date and time: 10/06/2025 7:22 PM Age: 79 years old Clinical indication: Injury or trauma; Fall TECHNIQUE: Imaging protocol: Computed tomography of the head without contrast. Radiation optimization: All CT scans at this facility use at least one of these dose optimization techniques: automated exposure control; mA and/or kV adjustment per patient size (includes targeted exams where dose is matched to clinical indication); or iterative reconstruction. COMPARISON: CT head wo con* [id number] 03/02/2025 12:44 PM RADIATION DOSE METRICS: Total DLP (mGy-cm): 961.45 FINDINGS: Brain: Basal cisterns are patent. No hemorrhage, mass effect or extra-axial collection. Higginbotham-white matter differentiation shows no interval change. Extensive hypoattenuating foci in the subcortical, deep and periventricular white matter likely related to microangiopathic ischemic changes. Diffuse cortical atrophy commensurate with the patient's age. No acute intracranial abnormality. Cerebral ventricles: No ventriculomegaly. Paranasal sinuses: Visualized sinuses are unremarkable. No fluid levels. Mastoid air cells: Visualized mastoid air cells are well aerated. Orbital cavities: Evidence of prior cataract surgery , otherwise the intraorbital contents are unremarkable. Bones: Unremarkable. No acute fracture. Soft tissues: Unremarkable. Other findings: Chronic findings as above. CT/CT head wo con* [id number] IMPRESSION: 1. No acute intracranial abnormality. 2. Chronic findings as above.
[2025-10-06] MEDS: pantoprazole 40 mg SDV IVP (21:20)
[2025-10-06 21:22] LABS: Cholesterol 298 mg/dL (0-200); HDL Cholesterol 62 mg/dL (60-100); Thyroid Stimulating Hormone 2.89 uIU/mL (0.27-4.20); Triglycerides 144 mg/dL (0-150)
[2025-10-06] MEDS: morphine 4 mg/mL SDV 1 mL 2 MG IVP (22:49)
[2025-10-07] VITALS (39 sets, daily range): BP systolic 68–154; BP diastolic 40–86; PULSE 52–111; RESP 12–22; TEMP 34.4–38.1; O2SAT 92–100
[2025-10-07 00:03] LABS: Estmated Average Glucose 146; Hemoglobin A1C 6.7 % (4.0-6.0)
[2025-10-07 00:31] LABS: Hematocrit 26.9 % (36-47); Hemoglobin 7.70 g/dL (11.27-16.99); Mean Corpuscular HGB Conc 28.6 g/dL (30-55); Mean Corpuscular Hemoglobin 26.8 pg (27-33); Mean Corpuscular Volume 93.7 fl (85-98); Nucleated Red Blood Cells % 0 %; Platelet Count 312 10^3/cmm (157-399); Red Blood Count 2.87 10^6/uL (3.85-5.65); White Blood Count 14.13 10^3/uL (3.29-11.43)
[2025-10-07 00:50] LABS: Alanine Aminotransferase 7 U/L (0-33); Albumin Level 3.9 g/dL (3.5-5.2); Alkaline Phosphatase 93 U/L (35-105); Anion Gap 12.9 (5-19); Blood Urea Nitrogen 22 mg/dL (8-23); Calcium 8.6 mg/dL (8.5-10.5); Carbon Dioxide 31 mmol/L (22-29); Chloride 96 mmol/L (98-107); Globulin 3.0 g/dL (1.3-4.6); Glucose 223 mg/dL (65-115); Osmolality Calculated 290 mOsm/kg (285-295); Potassium 4.9 mmol/L (3.5-5.1); Sodium 135 mmol/L (136-145); Total Protein 6.9 g/dL (6.6-8.7)
[2025-10-07 00:58] LABS: Aspartate Amino Transferase 17 U/L (0-32)
[2025-10-07 01:13] LABS: NT Pro B Type Natriuretic Pept 5811 pg/mL (0-450)
--- OUTSIDE RECORDS SUMMARY | 2025-10-07 03:24 | XMS_ITS | Encounter Summary ---
Author Organization [facility] Address [address] [place] [address] Care Team Providers Care Hay Chopper Name Role Phone Maico Valadez MD, Jef García Primary Care Provider Encounter Details Date Type Department Care Team (Latest Contact Info) Description 09/27/1998 Outpatient Historical [facility] Jef Nina Jr., MD [address] [place] [address] Multiple sclerosis (Primary Dx); Need vaccination-viral disease; Need for prophylactic vaccination against Streptococcus pneumoniae (pneumococcus) Social History Tobacco Use Types Packs/Day Years Used Date Smoking Tobacco: Never Assessed Comments Unknown Sex and Gender Information Value Date Recorded Sex Assigned at Not on file Legal Sex Female 5:44 AM STUDIO HAND Gender Identity Not on file Sexual Orientation Not on file documented as of this encounter Plan of Treatment Not on file documented as of this encounter Visit Diagnoses Diagnosis Multiple sclerosis- Primary Need vaccination-viral disease Need for prophylactic vaccination and inoculation against other viral diseases Need for prophylactic vaccination against Streptococcus pneumoniae (pneumococcus) Need for prophylactic vaccination against streptococcus pneumoniae (pneumococcus) documented in this encounter Care Teams Hay Chopper Relationship Specialty Start Date End Date Jef Nina Jr., MD [address] [place] [address] PCP - General 03/27/08 documented as of this encounter
--- OUTSIDE RECORDS SUMMARY | 2025-10-07 03:24 | XMS_ITS | Encounter Summary ---
Author Organization [email or web address] [facility] Address [address] [place] [address] Care Team Providers Care Rim Technician Name Role Phone Maico Valadez MD, Jef García Primary Care Provider Encounter Details Date Type Department Care Team (Latest Contact Info) Description 10/26/1998 Outpatient Historical [facility] [place] [address] [place] [address] Multiple sclerosis (Primary Dx) Social History Tobacco Use Types Packs/Day Years Used Date Smoking Tobacco: Never Assessed Comments Unknown Sex and Gender Information Value Date Recorded Sex Assigned at Not on file Legal Sex Female 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
--- OUTSIDE RECORDS SUMMARY | 2025-10-07 03:24 | XMS_ITS | Encounter Summary ---
Author Organization [facility] Address [address] [place] [address] Care Team Providers Care Latent Fingerprint Examiner Name Role Phone Maico Valadez MD, Jef García Primary Care Provider Encounter Details Date Type Department Care Team (Latest Contact Info) Description 01/07/1998 Outpatient Historical [facility] [place] [address] [place] [address] Multiple sclerosis (Primary Dx) Social History Tobacco Use Types Packs/Day Years Used Date Smoking Tobacco: Never Assessed Comments Unknown Sex and Gender Information Value Date Recorded Sex Assigned at Not on file 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
--- OUTSIDE RECORDS SUMMARY | 2025-10-07 03:24 | XMS_ITS | Encounter Summary ---
Author Organization [employer] [facility] Address [address] [place] [address] Care Team Providers Care Motel Manager Name Role Phone Maico Valadez MD, Jef García Primary Care Provider Encounter Details Date Type Department Care Team (Latest Contact Info) Description 04/02/2003 Outpatient Historical [facility] Jef Nina Jr., MD [address] [place] [address] HYPERLIPIDEMIA NEC/NOS (Primary Dx); MULTIPLE SCLEROSIS (CMS/HCC); IDIO PERIPH NEURPTHY NOS; DEPRESSIVE DISORDER NEC Social History Tobacco Use Types Packs/Day Years Used Date Smoking Tobacco: Never Assessed Comments Unknown Sex and Gender Information Value Date Recorded Sex Assigned at Not on file Legal Sex Female 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
--- OUTSIDE RECORDS SUMMARY | 2025-10-07 03:25 | XMS_ITS | Encounter Summary ---
Author Organization [employer] [facility] Address [address] [place] [address] Care Team Providers Care Space Studies Faculty Member Name Role Phone Maico Valadez MD, Jef García Primary Care Provider Encounter Details Date Type Department Care Team (Latest Contact Info) Description 07/15/2003 Outpatient Historical [facility] Jef Nina Jr., MD [address] [place] [address] CHRONIC AIRWAY OBSTRUCTION NEC (CMS/HCC) (Primary Dx); DIABETES UNCOMPL ADULT-TYPE II (CMS/HCC); BRONCHITIS NOS; MULTIPLE SCLEROSIS (CMS/HCC) Social History Tobacco Use Types Packs/Day Years Used Date Smoking Tobacco: Never Assessed Comments Unknown Sex and Gender Information Value Date Recorded Sex Assigned at Not on file Legal Sex Female 5:44 AM DIRECTOR OF GUIDANCE Gender Identity Not on file Sexual Orientation Not on file documented as of this encounter Plan of Treatment Not on file documented as of this encounter Visit Diagnoses Diagnosis Chronic airway obstruction, not elsewhere classified (CMS/HCC)- Primary Chronic airway obstruction, not elsewhere classified Type II or unspecified type diabetes mellitus without mention of complication, not stated as uncontrolled Bronchitis, not specified as acute or chronic Multiple sclerosis documented in this encounter Care Teams Space Studies Faculty Member Relationship Specialty Start Date End Date Jef Nina Jr., MD [address] [place] [address] PCP - General 03/27/08 documented as of this encounter
--- OUTSIDE RECORDS SUMMARY | 2025-10-07 03:25 | XMS_ITS | Encounter Summary ---
Author Organization [facility] Address [address] [place] [address] Care Team Providers Care Jeeper Operator Name Role Phone Maico Valadez MD, Jef García Primary Care Provider Encounter Details Date Type Department Care Team (Latest Contact Info) Description 09/17/2003 Outpatient Historical [facility] Neurology [address], [address] [place] [address] [place] [address] [place] [address] MULTIPLE SCLEROSIS (CMS/HCC) (Primary Dx) Social History Tobacco Use Types Packs/Day Years Used Date Smoking Tobacco: Never Assessed Comments Unknown Sex and Gender Information Value Date Recorded Sex Assigned at Not on file Legal Sex Female 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
--- OUTSIDE RECORDS SUMMARY | 2025-10-07 03:25 | XMS_ITS | Encounter Summary ---
Author Organization [employer] [facility] Address [address] [place] [address] Care Team Providers Care Tea Room Manager Name Role Phone Maico Valadez MD, Jef García Primary Care Provider Encounter Details Date Type Department Care Team (Latest Contact Info) Description 01/14/1999 Outpatient Historical [facility] Jef Nina Jr., MD [address] [place] [address] termite control technician (current) use of anticoagulants (Primary Dx) Social History Tobacco Use Types Packs/Day Years Used Date Smoking Tobacco: Never Assessed Comments Unknown Sex and Gender Information Value Date Recorded Sex Assigned at Not on file Legal Sex Female 5:44 AM NURSE AIDE Gender Identity Not on file Sexual Orientation Not on file documented as of this encounter Plan of Treatment Not on file documented as of this encounter Visit Diagnoses Diagnosis half-way (current) use of anticoagulants- Primary Long-term (current) use of anticoagulants documented in this encounter Care Teams Tea Room Manager Relationship Specialty Start Date End Date Jef Nina Jr., MD [address] [place] [address] PCP - General 03/27/08 documented as of this encounter
--- OUTSIDE RECORDS SUMMARY | 2025-10-07 03:25 | XMS_ITS | Encounter Summary ---
Author Organization [employer] [facility] Address [address] [place] [address] Care Team Providers Care Computer Consultant Name Role Phone Maico Valadez MD, Jef García Primary Care Provider Encounter Details Date Type Department Care Team (Latest Contact Info) Description 07/01/2003 Outpatient Historical [facility] Jef Nina Jr., MD [address] [place] [address] DIABETES UNCOMPL ADULT-TYPE II (CMS/HCC) (Primary Dx); Pure hypercholesterolem; HYPERLIPIDEMIA NEC/NOS; MULTIPLE SCLEROSIS (CMS/[facility]) Social History Tobacco Use Types Packs/Day Years Used Date Smoking Tobacco: Never Assessed Comments Unknown Sex and Gender Information Value Date Recorded Sex Assigned at Not on file Legal Sex Female 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 Gender Identity Not on file Sexual Orientation Not on file documented as of this encounter Plan of Treatment Not on file documented as of this encounter Visit Diagnoses Diagnosis Type II or unspecified type diabetes mellitus without mention of complication, not stated as uncontrolled- Primary Pure hypercholesterolem Pure hypercholesterolemia Other and unspecified hyperlipidemia Multiple sclerosis documented in this encounter Care Teams Computer Consultant Relationship Specialty Start Date End Date Jef Nina Jr., MD [address] [place] [address] PCP - General 03/27/08 documented as of this encounter
--- OUTSIDE RECORDS SUMMARY | 2025-10-07 03:25 | XMS_ITS | Encounter Summary ---
Author Organization [employer] [facility] Address [address] [place] [address] Care Team Providers Care Line Rider Name Role Phone Maico Valadez MD, Jef García Primary Care Provider Encounter Details Date Type Department Care Team (Late st Contact Info) Description 09/23/2003 Outpatient Historical [facility] [address] 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
--- OUTSIDE RECORDS SUMMARY | 2025-10-07 03:25 | XMS_ITS | Encounter Summary ---
Author Organization [employer] [facility] Address [address] [place] [address] Care Team Providers Care Dustless Operator Name Role Phone Maico Valadez MD, Jef García Primary Care Provider Encounter Details Date Type Department Care Team (Latest Contact Info) Description 03/17/1999 Outpatient Historical [facility] Jef Nina Jr., MD [address] [place] [address] Type II or unspecified type diabetes mellitus without mention of complication, not stated as uncontrolled (Primary Dx); Multiple sclerosis Social History Tobacco Use Types Packs/Day Years Used Date Smoking Tobacco: Never Assessed Comments Unknown Sex and Gender Information Value Date Recorded Sex Assigned at Not on file Legal Sex Female 5: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
--- OUTSIDE RECORDS SUMMARY | 2025-10-07 03:26 | XMS_ITS | Encounter Summary ---
Author Organization [employer] [facility] Address [address] [place] [address] Care Team Providers Care Bartacker Name Role Phone Maico Valadez MD, Jef García Primary Care Provider Encounter Details Date Type Department Care Team (Late st Contact Info) Description 04/02/2003 Outpatient Historical [facility] Jef Nina Jr., MD [address] [place] [address] IDIO PERIPH NEURPTHY NOS (Primary Dx) Social History Tobacco Use Types Packs/Day Years Used Date Smoking Tobacco: Never Assessed Comments Unknown Sex and Gender Information Value Date Recorded Sex Assigned at Not on file Legal Sex Female 5:44 AM HEAD CHEF Gender Identity Not on file Sexual Orientation Not on file documented as of this encounter Plan of Treatment Not on file documented as of this encounter Visit Diagnoses Diagnosis Unspecified hereditary and idiopathic peripheral neuropathy- Primary documented in this encounter Care Teams Bartacker Relationship Specialty Start Date End Date Jef Nina Jr., MD [address] [place] [address] PCP - General 03/27/08 documented as of this encounter
--- OUTSIDE RECORDS SUMMARY | 2025-10-07 03:26 | XMS_ITS | Encounter Summary ---
Author Organization [facility] Address [address] [place] [address] Care Team Providers Care Rod Welder Name Role Phone Maico Valadez MD, Jef García Primary Care Provider Encounter Details Date Type Department Care Team (Latest Contact Info) Description 11/26/2003 Outpatient Historical [facility] Neurology [address], [address] [place] [address] [place] [address] [place] [address] MULTIPLE SCLEROSIS (CMS/HCC) (Primary Dx) Social History Tobacco Use Types Packs/Day Years Used Date Smoking Tobacco: Never Assessed Comments Unknown Sex and Gender Information Value Date Recorded Sex Assigned at Not on file Legal Sex Female 5:44 AM 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
--- OUTSIDE RECORDS SUMMARY | 2025-10-07 03:26 | XMS_ITS | Encounter Summary ---
Author Organization [employer] [facility] Address [address] [place] [address] Care Team Providers Care Air Moving Technician Name Role Phone Maico Valadez MD, Jef García Primary Care Provider Encounter Details Date Type Department Care Team (Latest Contact Info) Description 11/20/2002 Outpatient Historical [facility] Jef Nina Jr., MD [address] [place] [address] PURE HYPERCHOLESTEROLEM (Primary Dx) Social History Tobacco Use Types Packs/Day Years Used Date Smoking Tobacco: Never Assessed Comments Unknown Sex and Gender Information Value Date Recorded Sex Assigned at Not on file Legal Sex Female 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
--- OUTSIDE RECORDS SUMMARY | 2025-10-07 03:26 | XMS_ITS | Encounter Summary ---
Author Organization [facility] Address [address] [place] [address] Care Team Providers Care Commercial Internship Name Role Phone Maico Valadez MD, Jef García Primary Care Provider Encounter Details Date Type Department Care Team (Latest Contact Info) Description 09/23/2003 Outpatient Historical [facility] [place] [facility] [address], [address] [place] [address] [place] [address] [place] [address] MULTIPLE SCLEROSIS (CMS/HCC) (Primary Dx) Social History Tobacco Use Types Packs/Day Years Used Date Smoking Tobacco: Never Assessed Comments Unknown Sex and Gender Information Value Date Recorded Sex Assigned at Not on file Legal Sex Female 5: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
--- OUTSIDE RECORDS SUMMARY | 2025-10-07 03:26 | XMS_ITS | Encounter Summary ---
Author Organization [employer] [facility] Address [address] [place] [address] Care Team Providers Care Cattery Operator Name Role Phone Maico Valadez MD, Jef García Primary Care Provider Encounter Details Date Type Department Care Team (Latest Contact Info) Description 11/20/2002 Outpatient Historical [facility] Jef Nina Jr., MD [address] [place] [address] Pure hypercholesterolem (Primary Dx); HYPERLIPIDEMIA NEC/NOS; GENERALIZED ANXIETY DIS; VACCINE FOR INFLUENZA Social History Tobacco Use Types Packs/Day Years Used Date Smoking Tobacco: Never Assessed Comments Unknown Sex and Gender Information Value Date Recorded Sex Assigned at Not on file Legal Sex Female 5:44 AM CARE CENTER MANAGER Gender Identity Not on file Sexual Orientation Not on file documented as of this encounter Plan of Treatment Not on file documented as of this encounter Visit Diagnoses Diagnosis Pure hypercholesterolem- Primary Pure hypercholesterolemia Other and unspecified hyperlipidemia Generalized anxiety disorder Need vaccination-viral disease Need for prophylactic vaccination and inoculation against other viral diseases documented in this encounter Care Teams Cattery Operator Relationship Specialty Start Date End Date Jef Nina Jr., MD [address] [place] [address] PCP - General 03/27/08 documented as of this encounter
--- OUTSIDE RECORDS SUMMARY | 2025-10-07 03:27 | XMS_ITS | Encounter Summary ---
Author Organization [employer] [facility] Address [address] [place] [address] Care Team Providers Care Funding Specialist Name Role Phone Maico Valadez MD, Jef García Primary Care Provider Encounter Details Date Type Department Care Team (Latest Contact Info) Description 02/18/2003 Outpatient Historical [facility] Jef Nina Jr., MD [address] [place] [address] Pure hypercholesterolem (Primary Dx); DIZZINESS AND GIDDINESS; ALLERGIC RHINITIS NOS Social History Tobacco Use Types Packs/Day Years Used Date Smoking Tobacco: Never Assessed Comments Unknown Sex and Gender Information Value Date Recorded Sex Assigned at Not on file Legal Sex Female 5:44 AM SCIENTIFIC PUBLICATIONS 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
--- OUTSIDE RECORDS SUMMARY | 2025-10-07 03:27 | XMS_ITS | Encounter Summary ---
Author Organization [facility] Address [address] [place] [address] Care Team Providers Care Ore Dryer Name Role Phone Maico Valadez MD, Jef García Primary Care Provider Encounter Details Date Type Department Care Team (Latest Contact Info) Description 09/11/2006 Outpatient Historical [facility] Neurology [address], [address] [place] [address] [place] [address] [place] [address] Multiple Sclerosis (CMS/HCC) (Primary Dx) Social History Tobacco Use Types Packs/Day Years Used Date Smoking Tobacco: Never Assessed Comments Unknown Sex and Gender Information Value Date Recorded Sex Assigned at Not on file Legal Sex Female 5:44 AM 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
--- OUTSIDE RECORDS SUMMARY | 2025-10-07 03:27 | XMS_ITS | Encounter Summary ---
Author Organization [facility] [facility] Address [address] [place] [address] Care Team Providers Care Binder Roller Name Role Phone Maico Valadez MD, Jef García Primary Care Provider Encounter Details Date Type Department Care Team (Latest Contact Info) Description 09/02/2007 Outpatient Historical [facility] [address], [address] [place] [address] [place] [address] [place] [address] Multiple Sclerosis (CMS/HCC) (Primary Dx) Social History Tobacco Use Types Packs/Day Years Used Date Smoking Tobacco: Never Assessed Comments Unknown Sex and Gender Information Value Date Recorded Sex Assigned at Not on file Legal Sex Female 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
--- OUTSIDE RECORDS SUMMARY | 2025-10-07 03:27 | XMS_ITS | Encounter Summary ---
Author Organization [employer] [facility] Address [address] [place] [address] Care Team Providers Care Editor School Photograph Name Role Phone Maico Valadez MD, Jef García Primary Care Provider Encounter Details Date Type Department Care Team (Latest Contact Info) Description 03/22/1999 Outpatient Historical [facility] Jef Nina Jr., MD [address] [place] [address] Pure hypercholesterolem (Primary Dx); Anxiety state, unspecified Social History Tobacco Use Types Packs/Day Years Used Date Smoking Tobacco: Never Assessed Comments Unknown Sex and Gender Information Value Date Recorded Sex Assigned at Not on file Legal Sex Female 5:44 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
--- OUTSIDE RECORDS SUMMARY | 2025-10-07 03:27 | XMS_ITS | Encounter Summary ---
Author Organization [employer] [facility] Address [address] [place] [address] Care Team Providers Care Manager Transportation Name Role Phone Maico Valadez MD, Jef García Primary Care Provider Encounter Details Date Type Department Care Team (Latest Contact Info) Description 09/22/1999 Outpatient Historical [facility] Jef Nina Jr., MD [address] [place] [address] Pneumonia, organism unspecified(486) (Primary Dx); Multiple sclerosis Social History Tobacco Use Types Packs/Day Years Used Date Smoking Tobacco: Never Assessed Comments Unknown Sex and Gender Information Value Date Recorded Sex Assigned at Not on file Legal Sex Female 5:44 AM SENIOR MOBILE APPLICATION DEVELOPER Gender Identity Not on file Sexual Orientation Not on file documented as of this encounter Plan of Treatment Not on file documented as of this encounter Visit Diagnoses Diagnosis Pneumonia, organism unspecified(486)- Primary Pneumonia, organism unspecified Multiple sclerosis documented in this encounter Care Teams Manager Transportation Relationship Specialty Start Date End Date Jef Nina Jr., MD [address] [place] [address] PCP - General 03/27/08 documented as of this encounter
--- OUTSIDE RECORDS SUMMARY | 2025-10-07 03:27 | XMS_ITS | Encounter Summary ---
Author Organization [employer] [facility] Address [address] [place] [address] Care Team Providers Care Roll Setter Name Role Phone Maico Valadez MD, Jef García Primary Care Provider Encounter Details Date Type Department Care Team (Latest Contact Info) Description 04/27/1999 Outpatient Historical [facility] Dimas Cervantes MD [address] [place] [address] Anal or rectal pain (Primary Dx) Social History Tobacco Use Types Packs/Day Years Used Date Smoking Tobacco: Never Assessed Comments Unknown Sex and Gender Information Value Date Recorded Sex Assigned at Not on file Legal Sex Female 5: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
--- OUTSIDE RECORDS SUMMARY | 2025-10-07 03:27 | XMS_ITS | Encounter Summary ---
Author Organization [employer] [facility] Address [address] [place] [address] Care Team Providers Care Recruitment Consultant Name Role Phone Maico Valadez MD, Jef García Primary Care Provider Encounter Details Date Type Department Care Team (Latest Contact Info) Description 03/31/1999 Outpatient Historical [facility] Jef Nina Jr., MD [address] [place] [address] Routine medical exam (Primary Dx); Anal or rectal pain; Multiple sclerosis; Need for prophylactic hormone replacement therapy (postmenopausal) Social History Tobacco Use Types Packs/Day Years Used Date Smoking Tobacco: Never Assessed Comments Unknown Sex and Gender Information Value Date Recorded Sex Assigned at Not on file Legal Sex Female 5:44 AM MACHINE SAND MIXER Gender Identity Not on file Sexual Orientation Not on file documented as of this encounter Plan of Treatment Not on file documented as of this encounter Visit Diagnoses Diagnosis Routine medical exam- Primary Routine general medical examination at a health care facility Anal or rectal pain Multiple sclerosis Need for prophylactic hormone replacement therapy (postmenopausal) documented in this encounter Care Teams Recruitment Consultant Relationship Specialty Start Date End Date Jef Nina Jr., MD [address] [place] [address] PCP - General 03/27/08 documented as of this encounter
--- OUTSIDE RECORDS SUMMARY | 2025-10-07 03:27 | XMS_ITS | Encounter Summary ---
Author Organization [facility] Address [address] [place] [address] Care Team Providers Care Anodic Treater Name Role Phone Maico Valadez MD, Jef García Primary Care Provider Encounter Details Date Type Department Care Team (Latest Contact Info) Description 08/08/2004 Outpatient Historical [facility] Neurology [address], [address] [place] [address] [place] [address] [place] [address] MULTIPLE SCLEROSIS (CMS/HCC) (Primary Dx) Social History Tobacco Use Types Packs/Day Years Used Date Smoking Tobacco: Never Assessed Comments Unknown Sex and Gender Information Value Date Recorded Sex Assigned at Not on file Legal Sex Female 5:[address]MINISTRATOR Gender Identity Not on file Sexual Orientation Not on file documented as of this encounter Plan of Treatment Not on file documented as of this encounter Visit Diagnoses Diagnosis Multiple sclerosis- Primary documented in this encounter Care Teams Anodic Treater Relationship Specialty Start Date End Date Jef Nina Jr., MD [address] [place] [phone] PCP - General 03/27/08 documented as of this encounter
--- OUTSIDE RECORDS SUMMARY | 2025-10-07 03:28 | XMS_ITS | Encounter Summary ---
Author Organization [employer] [facility] Address [address] [place] [address] Care Team Providers Care Ethnographic Materials Conservator Name Role Phone Maico Valadez MD, Jef García Primary Care Provider Encounter Details Date Type Department Care Team (Latest Contact Info) Description 12/30/2001 Outpatient Historical [facility] Jef Nina Jr., MD [address] [place] [address] HYPERLIPIDEMIA NEC/NOS (Primary Dx); ACNE NEC; ROSACEA Social History Tobacco Use Types Packs/Day Years Used Date Smoking Tobacco: Never Assessed Comments Unknown Sex and Gender Information Value Date Recorded Sex Assigned at Not on file Legal Sex Female 5:44 AM MANAGER INTENSIVE CARE UNIT Gender Identity Not on file Sexual Orientation Not on file documented as of this encounter Plan of Treatment Not on file documented as of this encounter Visit Diagnoses Diagnosis Other and unspecified hyperlipidemia- Primary Other acne Rosacea documented in this encounter Care Teams Ethnographic Materials Conservator Relationship Specialty Start Date End Date Jef Nina Jr., MD [address] [place] [address] PCP - General 03/27/08 documented as of this encounter
--- OUTSIDE RECORDS SUMMARY | 2025-10-07 03:28 | XMS_ITS | Encounter Summary ---
Author Organization [facility] Address [address] [place] [address] Care Team Providers Care Regional Dedicated Truck Driver Name Role Phone Maico Valadez MD, Jef García Primary Care Provider Encounter Details Date Type Department Care Team (Latest Contact Info) Description 04/20/2004 Outpatient Historical [facility] [address], [address] [place] [address] [place] [address] [place] [address] MULTIPLE SCLEROSIS (CMS/HCC) (Primary Dx) Social History Tobacco Use Types Packs/Day Years Used Date Smoking Tobacco: Never Assessed Comments Unknown Sex and Gender Information Value Date Recorded Sex Assigned at Not on file Legal Sex Female 5:44 AM CLIENT CARE SPECIALIST Gender Identity Not on file Sexual Orientation Not on file documented as of this encounter Plan of Treatment Not on file documented as of this encounter Visit Diagnoses Diagnosis Multiple sclerosis- Primary documented in this encounter Care Teams Regional Dedicated Truck Driver Relationship Specialty Start Date End Date Jef Nina Jr., MD [address] [place] [phone] PCP - General 03/27/08 documented as of this encounter
--- OUTSIDE RECORDS SUMMARY | 2025-10-07 03:28 | XMS_ITS | Clinical Summary ---
Author Organization [facility] Address [address] [place] [address] Phone Care Team Providers Care Circulation Librarian Name Role Phone Maico Valadez MD, Jef García Primary Care Provider Medications LIPITOR 20 mg Oral Tab Take 20 mg by mouth Daily LATE. Active TRICOR 145 mg Oral Tab Take 145 mg by mouth daily. Active citalopram (CELEXA) 20 mg Oral tablet Take 1 Tab by mouth daily at bedtime. 30 Tab 6 9 Active glatiramer acetate (COPAXONE) 20 mg subCUT KitIndications: MS (multiple sclerosis) Inject 20 mg by subcutaneous injection daily. 3 Kit 3 0 Active Active Problems Problem Noted Date Diagnosed Date Multiple sclerosis 03/18/2009 Immunizations Immunization Administration Dates Next Due (PNEUMOVAX 23)(50 YRS UP) PN EUMOCOCCAL POLYSACCHARIDE (PPV23) 0.5 ML, IM 06/22/2004,09/26/2002,09/27/1998 Influenza Seasonal Unspecifi ed Formulation IM 11/20/2002 Social History Tobacco Use Types Packs/Day Years Used Date Smoking Tobacco: Never Assessed Comments No Sex and Gender Information Value Date Recorded Sex Assigned at Not on file Legal Sex Female 5:44 AM JAVA CONSULTANT Gender Identity Not on file Sexual Orientation Not on file Last Filed Vital Signs Vital Sign Reading Time Taken Comments Blood Pressure 150/80 03/18/2009 12:53 PM CDT Pulse 85 03/18/2009 12:53 PM CDT Temperature - - Respiratory Rate - - Oxygen Saturation - - Inhaled Oxygen Concentration - - Weight 68.9 kg (152 lb) 03/18/2009 12:53 PM CDT Height - - Body Mass Index - - Plan of Treatment Health Maintenance Due Date Last Done Comments DTAP/TDAP/TD VACCINES (1 - Tdap) 1962 ZOSTER VACCINE (1 of 2) 1993 PNEUMOCOCCAL VACCINE 50+ YEA RS (2 of 2 - PCV) 06/22/2005 06/22/2004, 09/26/2002, 09/27/1998 OSTEOPOROSIS SCREENING 2008 RSV VACCINE (60+ or ) (1 - 1-dose 75+ series) 2018 INFLUENZA VACCINE (#1) 2025 11/20/2002 Colorectal Cancer Screening Discontinued Flex Sig/CT Colonography Q 5 years Discontinued 1998 COLORECTAL SCREENING Discontinued FIT-DNA Q 3 years Discontinued FIT/FOBT Q 1 year Discontinued Insurance MEDICAID [place]ARE PART [place] B Care Teams Circulation Librarian Relationship Specialty Start Date End Date Jef Nina Jr., MD [address] [place] [address] PCP - General 03/27/08
--- OUTSIDE RECORDS SUMMARY | 2025-10-07 03:28 | XMS_ITS | Encounter Summary ---
Author Organization [facility] Address [address] [place] [address] Care Team Providers Care Children[facility]S Institution Attendant Name Role Phone Maico Valadez MD, Jef García Primary Care Provider Encounter Details Date Type Department Care Team (Latest Contact Info) Description 11/16/2004 Outpatient Historical [facility] Neurology [address], [address] [place] [address] [place] [address] [place] [address] MULTIPLE SCLEROSIS (CMS/HCC) (Primary Dx) Social History Tobacco Use Types Packs/Day Years Used Date Smoking Tobacco: Never Assessed Comments Unknown Sex and Gender Information Value Date Recorded Sex Assigned at Not on file Legal Sex Female 5:44 AM CLEANER AND PREPARER Gender Identity Not on file Sexual Orientation Not on file documented as of this encounter Plan of Treatment Not on file documented as of this encounter Visit Diagnoses Diagnosis Multiple sclerosis- Primary documented in this encounter Care Teams Children'S Institution Attendant Relationship Specialty Start Date End Date Jef Nina Jr., MD [address] [place] [phone] PCP - General 03/27/08 documented as of this encounter
--- OUTSIDE RECORDS SUMMARY | 2025-10-07 03:28 | XMS_ITS | Encounter Summary ---
Author Organization [facility] Address [address] [place] [address] Care Team Providers Care Educational Paraprofessional Name Role Phone Maico Valadez MD, Jef García Primary Care Provider Encounter Details Date Type Department Care Team (Latest Contact Info) Description 09/10/2001 Outpatient Historical [facility] Neu[facility] [address], [address] [place] [address] [place] [address] [place] [address] Multiple sclerosis (Primary Dx) Social History Tobacco Use Types Packs/Day Years Used Date Smoking Tobacco: Never Assessed Comments Unknown Sex and Gender Information Value Date Recorded Sex Assigned at Not on file Legal Sex Female 5:44 AM TRANSFER DRIVER Gender Identity Not on file Sexual Orientation Not on file documented as of this encounter Plan of Treatment Not on file documented as of this encounter Visit Diagnoses Diagnosis Multiple sclerosis- Primary documented in this encounter Care Teams Educational Paraprofessional Relationship Specialty Start Date End Date Jef Nina Jr., MD [address] [place] [address] PCP - General 03/27/08 documented as of this encounter
--- OUTSIDE RECORDS SUMMARY | 2025-10-07 03:28 | XMS_ITS | Encounter Summary ---
Author Organization [facility] Address [address] Olea: [place] [address] Care Team Providers Care Frame Polisher Name Role Phone Maico Valadez MD, Jef García Primary Care Provider Encounter Details Date Type Department Care Team (Late st Contact Info) Description 09/10/2001 Outpatient [place] [address] [place] [address] Social History Tobacco Use Types Packs/Day Years Used Date Smoking Tobacco: Never Assessed Comments Unknown Sex and Gender Information Value Date Recorded Sex Assigned at Not on file Legal Sex Female 5:44 AM ANALYTICS ASSOCIATE Gender Identity Not on file Sexual Orientation Not on file documented as of this encounter Plan of Treatment Not on file documented as of this encounter Visit Diagnoses Not on filedocumented in this encounter Care Teams Frame Polisher Relationship Specialty Start Date End Date Jef Nina Jr., MD [address] [place] [phone] PCP - General 03/27/08 documented as of this encounter
--- OUTSIDE RECORDS SUMMARY | 2025-10-07 03:28 | XMS_ITS | Encounter Summary ---
Author Organization [employer] [facility] Address [address] [place] [address] Care Team Providers Care Mounted Police Name Role Phone Maico Valadez MD, Jef García Primary Care Provider Encounter Details Date Type Department Care Team (Latest Contact Info) Description 12/19/2001 Outpatient Historical [facility] Jef Nina Jr., MD [address] [place] [address] Pure hypercholesterolem (Primary Dx); OSTEOPOROSIS NOS; GENERALIZED ANXIETY DIS Social History Tobacco Use Types Packs/Day Years Used Date Smoking Tobacco: Never Assessed Comments Unknown Sex and Gender Information Value Date Recorded Sex Assigned at Not on file Legal Sex Female 5:44 AM DIRECTOR OF IT OPERATIONS Gender Identity Not on file Sexual Orientation Not on file documented as of this encounter Plan of Treatment Not on file documented as of this encounter Visit Diagnoses Diagnosis Pure hypercholesterolem- Primary Pure hypercholesterolemia Osteoporosis, unspecified Generalized anxiety disorder documented in this encounter Care Teams Mounted Police Relationship Specialty Start Date End Date Jef Nina Jr., MD [address] [place] [address] PCP - General 03/27/08 documented as of this encounter
--- OUTSIDE RECORDS SUMMARY | 2025-10-07 03:29 | XMS_ITS | Encounter Summary ---
Author Organization [employer] [facility] Address [address] [place] [address] Care Team Providers Care Armature Connector Name Role Phone Maico Valadez MD, Jef García Primary Care Provider Encounter Details Date Type Department Care Team (Late st Contact Info) Description 09/06/2000 Outpatient Historical [facility] [place] [place] [address] [place] [address] Encounter for long-term (current) use of other medications (Primary Dx); Multiple sclerosis Social History Tobacco Use Types Packs/Day Years Used Date Smoking Tobacco: Never Assessed Comments Unknown Sex and Gender Information Value Date Recorded Sex Assigned at Not on file Legal Sex Female 5:44 AM MORTAR MIXER OPERATOR Gender Identity Not on file Sexual Orientation Not on file documented as of this encounter Plan of Treatment Not on file documented as of this encounter Visit Diagnoses Diagnosis Encounter for long-term (current) use of other medications- Primary Multiple sclerosis documented in this encounter Care Teams Armature Connector Relationship Specialty Start Date End Date Jef Nina Jr., MD [address] [place] [phone] PCP - General 03/27/08 documented as of this encounter
--- OUTSIDE RECORDS SUMMARY | 2025-10-07 03:29 | XMS_ITS | Encounter Summary ---
Author Organization [email or web address] Address [address] Olea: [place] [address] Care Team Providers Care Grey Inspector Name Role Phone Maico Valadez MD, Jef García Primary Care Provider Encounter Details Date Type Department Care Team (Late st Contact Info) Description 12/20/2001 Outpatient Historical Jef Nina Jr., MD [address] [place] [address] Social History Tobacco Use Types Packs/Day Years Used Date Smoking Tobacco: Never Assessed Comments Unknown Sex and Gender Information Value Date Recorded Sex Assigned at Not on file Legal Sex Female 5:44 AM SUPERVISOR METAL HANGING Gender Identity Not on file Sexual Orientation Not on file documented as of this encounter Plan of Treatment Not on file documented as of this encounter Visit Diagnoses Not on filedocumented in this encounter Care Teams Grey Inspector Relationship Specialty Start Date End Date Jef Nina Jr., MD [address] [place] [address] PCP - General 03/27/08 documented as of this encounter
--- OUTSIDE RECORDS SUMMARY | 2025-10-07 03:29 | XMS_ITS | Encounter Summary ---
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) Social History Tobacco Use Types Packs/Day Years Used Date Smoking Tobacco: Never Assessed Comments Unknown Sex and Gender Information Value Date Recorded Sex Assigned at Not on file Legal Sex Female 5:44 AM STEEL SAMPLER Gender Identity Not on file Sexual Orientation Not on file documented as of this encounter Plan of Treatment Not on file documented as of this encounter Visit Diagnoses Diagnosis 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
--- OUTSIDE RECORDS SUMMARY | 2025-10-07 03:30 | XMS_ITS | Encounter Summary ---
Author Organization [employer] [facility] Address [address] [place] [address] Care Team Providers Care Medical Technical Writer Name Role Phone Maico Valadez MD, Jef García Primary Care Provider Encounter Details Date Type Department Care Team (Latest Contact Info) Description 11/29/2000 Outpatient Historical [facility] Jef Nina Jr., MD [address] [place] [address] Esophageal reflux (Primary Dx); Multiple sclerosis Social History Tobacco Use Types Packs/Day Years Used Date Smoking Tobacco: Never Assessed Comments Unknown Sex and Gender Information Value Date Recorded Sex Assigned at Not on file Legal Sex Female 5:44 AM LAY UP OPERATOR Gender Identity Not on file Sexual Orientation Not on file documented as of this encounter Plan of Treatment Not on file documented as of this encounter Visit Diagnoses Diagnosis Esophageal reflux- Primary Multiple sclerosis documented in this encounter Care Teams Medical Technical Writer Relationship Specialty Start Date End Date Jef Nina Jr., MD [address] [place] [address] PCP - General 03/27/08 documented as of this encounter
--- OUTSIDE RECORDS SUMMARY | 2025-10-07 03:30 | XMS_ITS | Encounter Summary ---
Author Organization [employer] [facility] Address [address] [place] [address] Care Team Providers Care Therapeutic Recreation Assistant Name Role Phone Maico Valadez MD, Jef García Primary Care Provider Encounter Details Date Type Department Care Team (Latest Contact Info) Description 01/10/2001 Outpatient Historical [facility] Jef Nina Jr., MD [address] [place] [address] Multiple sclerosis (Primary Dx); Mucous polyp of cervix; Screening for malignant neoplasm of the cervix; Special screening for malignant neoplasms of other sites Social History Tobacco Use Types Packs/Day Years Used Date Smoking Tobacco: Never Assessed Comments Unknown Sex and Gender Information Value Date Recorded Sex Assigned at Not on file Legal Sex Female 5:44 AM SURG RN Gender Identity Not on file Sexual Orientation Not on file documented as of this encounter Plan of Treatment Not on file documented as of this encounter Visit Diagnoses Diagnosis Multiple sclerosis- Primary Mucous polyp of cervix Screening for malignant neoplasm of the cervix Special screening for malignant neoplasms of other sites documented in this encounter Care Teams Therapeutic Recreation Assistant Relationship Specialty Start Date End Date Jef Nina Jr., MD [address] [place] [address] PCP - General 03/27/08 documented as of this encounter
--- OUTSIDE RECORDS SUMMARY | 2025-10-07 03:30 | XMS_ITS | Encounter Summary ---
Author Organization [employer] Address [address] [place]: [place] [address] Care Team Providers Care Stave Block Splitter Name Role Phone Maico Valadez MD, Jef García Primary Care Provider Encounter Details Date Type Department Care Team (Late st Contact Info) Description 01/11/2001 Outpatient Historical Jef Nina Jr., MD [address] [place] [address] Social History Tobacco Use Types Packs/Day Years Used Date Smoking Tobacco: Never Assessed Comments Unknown Sex and Gender Information Value Date Recorded Sex Assigned at Not on file Legal Sex Female 5:44 AM SHIPPING HAND Gender Identity Not on file Sexual Orientation Not on file documented as of this encounter Plan of Treatment Not on file documented as of this encounter Visit Diagnoses Not on filedocumented in this encounter Care Teams Stave Block Splitter Relationship Specialty Start Date End Date Jef Nina Jr., MD [address] [place] [address] PCP - General 03/27/08 documented as of this encounter
--- OUTSIDE RECORDS SUMMARY | 2025-10-07 03:30 | XMS_ITS | Encounter Summary ---
Author Organization [employer] Address [address] Olea: [place] [address] Care Team Providers Care Broadcast Maintenance Technician Name Role Phone Maico Valadez MD, Jef García Primary Care Provider Encounter Details Date Type Department Care Team (Late st Contact Info) Description 01/11/2001 Outpatient Historical Jef Nina Jr., MD [address] [place] [address] Social History Tobacco Use Types Packs/Day Years Used Date Smoking Tobacco: Never Assessed Comments Unknown Sex and Gender Information Value Date Recorded Sex Assigned at Not on file Legal Sex Female 5:44 AM BRICKMASON APPRENTICE Gender Identity Not on file Sexual Orientation Not on file documented as of this encounter Plan of Treatment Not on file documented as of this encounter Visit Diagnoses Not on filedocumented in this encounter Care Teams Broadcast Maintenance Technician Relationship Specialty Start Date End Date Jef Nina Jr., MD [address] [place] [address] PCP - General 03/27/08 documented as of this encounter
--- OUTSIDE RECORDS SUMMARY | 2025-10-07 03:31 | XMS_ITS | Encounter Summary ---
Author Organization [employer] Address [address] [place]a: [place] [address] Care Team Providers Care Buttonhole Facer Name Role Phone Maico Valadez MD, Jef García Primary Care Provider Encounter Details Date Type Department Care Team (Late st Contact Info) Description 04/04/2002 Outpatient Historical Jef Nina Jr., MD [address] [place] [address] Social History Tobacco Use Types Packs/Day Years Used Date Smoking Tobacco: Never Assessed Comments Unknown Sex and Gender Information Value Date Recorded Sex Assigned at Not on file Legal Sex Female 5:44 AM PEOPLESOFT CONSULTANT Gender Identity Not on file Sexual Orientation Not on file documented as of this encounter Plan of Treatment Not on file documented as of this encounter Visit Diagnoses Not on filedocumented in this encounter Care Teams Buttonhole Facer Relationship Specialty Start Date End Date Jef Nina Jr., MD [address] [place] [address] PCP - General 03/27/08 documented as of this encounter
--- OUTSIDE RECORDS SUMMARY | 2025-10-07 03:31 | XMS_ITS | Encounter Summary ---
Author Organization [employer] [facility] Address [address] [place] [address] Care Team Providers Care Deputy Sheriff Chief Name Role Phone Maico Valadez MD, Jef García Primary Care Provider Encounter Details Date Type Department Care Team (Late st Contact Info) Description 09/26/2002 Outpatient Historical [facility] Jef Nina Jr., MD [address] [place] [address] MULTIPLE SCLEROSIS (CMS/HCC) (Primary Dx) Social History Tobacco Use Types Packs/Day Years Used Date Smoking Tobacco: Never Assessed Comments Unknown Sex and Gender Information Value Date Recorded Sex Assigned at Not on file Legal Sex Female 5:44 AM MONEY ORDER CLERK Gender Identity Not on file Sexual Orientation Not on file documented as of this encounter Plan of Treatment Not on file documented as of this encounter Visit Diagnoses Diagnosis Multiple sclerosis- Primary documented in this encounter Care Teams Deputy Sheriff Chief Relationship Specialty Start Date End Date Jef Nina Jr., MD [address] [place] [address] PCP - General 03/27/08 documented as of this encounter
--- OUTSIDE RECORDS SUMMARY | 2025-10-07 03:31 | XMS_ITS | Encounter Summary ---
Author Organization [employer] [facility] Address [address] [place] [address] Care Team Providers Care Workforce Consultant Name Role Phone Maico Valadez MD, Jef García Primary Care Provider Encounter Details Date Type Department Care Team (Latest Contact Info) Description 07/09/2002 Outpatient Historical [facility] Jef Nina Jr., MD [address] [place] [address] MULTIPLE SCLEROSIS (CMS/HCC) (Primary Dx); Abn Pap Smear-Cervix Social History Tobacco Use Types Packs/Day Years Used Date Smoking Tobacco: Never Assessed Comments Unknown Sex and Gender Information Value Date Recorded Sex Assigned at Not on file Legal Sex Female 5:44 AM STULL HEWER Gender Identity Not on file Sexual Orientation Not on file documented as of this encounter Plan of Treatment Not on file documented as of this encounter Visit Diagnoses Diagnosis Multiple sclerosis- Primary Abn Pap Smear-Cervix Abnormal Papanicolaou smear of cervix and cervical HPV documented in this encounter Care Teams Workforce Consultant Relationship Specialty Start Date End Date Jef Nina Jr., MD [address] [place] [address] PCP - General 03/27/08 documented as of this encounter
--- OUTSIDE RECORDS SUMMARY | 2025-10-07 03:31 | XMS_ITS | Encounter Summary ---
Author Organization [employer] [facility] Address [address] [place] [address] Care Team Providers Care Production Graphic Designer Name Role Phone Maico Valadez MD, Jef García Primary Care Provider Encounter Details Date Type Department Care Team (Latest Contact Info) Description 04/25/2002 Outpatient Historical [facility] Jef Nina Jr., MD [address] [place] [address] Abn Pap Smear-Cervix (Primary Dx) Social History Tobacco Use Types Packs/Day Years Used Date Smoking Tobacco: Never Assessed Comments Unknown Sex and Gender Information Value Date Recorded Sex Assigned at Not on file Legal Sex Female 5:44 AM AIRCRAFT NAVIGATOR Gender Identity Not on file Sexual Orientation Not on file documented as of this encounter Plan of Treatment Not on file documented as of this encounter Visit Diagnoses Diagnosis Abn Pap Smear-Cervix- Primary Abnormal Papanicolaou smear of cervix and cervical HPV documented in this encounter Care Teams Production Graphic Designer Relationship Specialty Start Date End Date Jef Nina Jr., MD [address] [place] [address] PCP - General 03/27/08 documented as of this encounter
--- OUTSIDE RECORDS SUMMARY | 2025-10-07 03:31 | XMS_ITS | Encounter Summary ---
Author Organization [employer] Address [address] 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
--- OUTSIDE RECORDS SUMMARY | 2025-10-07 03:32 | XMS_ITS | Encounter Summary ---
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 Social History Tobacco Use Types Packs/Day Years Used Date Smoking Tobacco: Never Assessed Comments Unknown Sex and Gender Information Value Date Recorded Sex Assigned at Not on file 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
--- OUTSIDE RECORDS SUMMARY | 2025-10-07 03:32 | XMS_ITS | Encounter Summary ---
Author Organization [employer] [facility] Address [address] [place] [address] Care Team Providers Care Tandem Mill Operator Name Role Phone Maico Valadez MD, Jef García Primary Care Provider Encounter Details Date Type Department Care Team (Latest Contact Info) Description 02/20/2002 Outpatient Historical [facility] Jef Nina Jr., MD [address] [place] [address] Pure hypercholesterolem (Primary Dx); DEPRESSIVE DISORDER NEC; MULTIPLE SCLEROSIS ([facility]) Social History Tobacco Use Types Packs/Day Years Used Date Smoking Tobacco: Never Assessed Comments Unknown Sex and Gender Information Value Date Recorded Sex Assigned at Not on file 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
--- OUTSIDE RECORDS SUMMARY | 2025-10-07 03:32 | XMS_ITS | Encounter Summary ---
Author Organization [employer] [facility] Address [address] [place] [address] Care Team Providers Care Monument Mason Name Role Phone Maico Valadez MD, Jef García Primary Care Provider Encounter Details Date Type Department Care Team (Latest Contact Info) Description 04/03/2002 Outpatient Historical [facility] Jef Nina Jr., MD [address] [place] [address] MULTIPLE SCLEROSIS (CMS/[facility]) (Primary Dx); Abn Pap Smear-Cervix; DEPRESSIVE DISORDER NEC; TOBACCO USE DISORDER Social History Tobacco Use Types Packs/Day Years Used Date Smoking Tobacco: Never Assessed Comments Unknown Sex and Gender Information Value Date Recorded Sex Assigned at Not on file 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
--- OUTSIDE RECORDS SUMMARY | 2025-10-07 03:32 | XMS_ITS | Encounter Summary ---
Author Organization [employer] Address [address] 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
--- OUTSIDE RECORDS SUMMARY | 2025-10-07 03:32 | XMS_ITS | Encounter Summary ---
Author Organization [employer] Address [address] 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
--- OUTSIDE RECORDS SUMMARY | 2025-10-07 03:32 | XMS_ITS | Encounter Summary ---
Author Organization [facility] Address [address] [place] [address] Care Team Providers Care Recreation Facility Manager Name Role Phone Maico Valadez MD, Jef García Primary Care Provider Encounter Details Date Type Department Care Team (Latest Contact Info) Description 09/15/2002 Outpatient Historical [facility] [address], [address] [place] [address] [place] [address] [place] [address] MULTIPLE SCLEROSIS (CMS/HCC) (Primary Dx) Social History Tobacco Use Types Packs/Day Years Used Date Smoking Tobacco: Never Assessed Comments Unknown Sex and Gender Information Value Date Recorded Sex Assigned at Not on file 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
[2025-10-07] MEDS: morphine 4 mg/mL SDV 1 mL 2 MG IVP ×2 (04:29→09:24)
--- NOTE | 2025-10-07 06:19 | PC.NURSE ---
THIS RN CONTACTED THE HOSPITALIST OVERSEEING THE PATIENTS CARE TO CLARIFY WHETHER MORNING MEDICATIONS COULD BE ADMINISTERED WHILE THE PT IS NPO. THE PHYSICIAN PROVIDED AN ORDER OVER [employer] AUTHORIZING THE ADMINISTRATION OF MORNING MEDICATIONS WITH SMALL SIPS OF WATER.
--- NOTE | 2025-10-07 07:43 | PC.NURSE ---
Rounding with patient and noticed that pts IV line with Amiodarone and NS has been pulled out and was infusing into patients bed. Site already clotted. Pt has second line that was partially migrated and kinked off. Adjustments made to second IV line and able to use site. Great blood return and flushes without difficulties. REdressed and fluids restarted. Pt unaware of fluids draining under her as she is alert to self only.
--- NOTE | 2025-10-07 11:28 | ANES.PREANE2 ---
Pre-Anesthetic Assessment Height/Weight: Height 5 ft 5 in Weight 117 lb Temp Pulse Resp BP Pulse Ox O2 Del Method O2 Flow Rate 98.5 F 101 H 22 H 125/73 93 Nasal Cannula 2 10/07/25 08:00 10/07/25 11:06 10/07/25 09:24 10/07/25 11:06 10/07/25 11:06 10/07/25 08:00 10/07/25 08:00 Preop Diagnosis: Hip fracture Operation Date: 10/07/25 15:35 Proposed Procedures p Hemiarthroplasty Hip(Left) - Nikunj Gallego, DO Was Beta Mima taken within 24 hours: Yes Was Clonidine taken within 24 hours: N/A Social No alcohol and No tobacco Exam clear to auscultation bilaterally and regular rate & rhythm Alert to self only Airway Submandibular: within normal limits Cervical ROM: within normal limits Mallampati: Class III Comments: Comments: Poor dentition, multiple missing teeth. Poor mouth opening effort causing difficulty for examination Anesthetic Plan ASA status: 4 Anesthesia: General Other: Patient initially admitted yesterday after experiencing a fall resulting in left hip fracture No prior issues with anesthesia History of MS, very progressive dementia A-fib on chronic Eliquis. Eliquis was documented to be taken yesterday morning however patient's daughter is at bedside and states that they found the pills at home and do not believe she took it yesterday morning and it would be 2 days ago Type 2 diabetes, no insulin GERD on Protonix Labs reviewed from today, hemoglobin 7.7 this morning. WBC 14.1 NA 135, K+ 4.9 EKG A-fib with RVR Type and screen available Plan for general anesthesia Medications/Allergies Home Medications ?Medication ?Instructions ?Recorded ?Confirmed ?Last Taken ?Type albuterol sulfate 2.5 mg/3 mL 2.5 mg inhalation Q4H PRN 12/29/19 10/07/25 Unknown History (0.083 %) solution for nebulization Shortness Of Breath metoprolol tartrate 25 mg tablet 25 mg PO BID #60 tabs 04/10/20 10/07/25 10/06/25 19:00 Rx pantoprazole 40 mg tablet,delayed 40 mg PO QPM 04/10/20 10/07/25 10/06/25 08:00 History release cholecalciferol (vitamin D3) 10 10 mcg PO DAILY 07/18/22 10/07/25 10/06/25 08:00 History mcg (400 unit) tablet budesonide 0.5 mg/2 mL suspension 0.5 mg inhalation BID PRN 10/10/23 10/07/25 Unknown History for nebulization (Pulmicort) Shortness Of Breath alprazolam 0.5 mg tablet 0.25 mg (1/2 x 0.5 mg) PO TID PRN 03/13/24 10/07/25 10/06/25 Rx Anxiety #30 tabs digoxin 125 mcg (0.125 mg) tablet 0.0625 mcg (0.0005 x 125 mcg 03/13/24 10/07/25 10/06/25 Rx (0.125 mg)) PO EVERY OTHER DAY #1 tab escitalopram oxalate 10 mg tablet 10 mg PO DAILY #90 tabs 03/13/24 10/07/25 10/06/25 08:00 Rx metformin 500 mg tablet,extended 500 mg PO QAM 10/15/24 10/07/25 10/06/25 09:00 History release 24 hr apixaban 5 mg tablet (Eliquis) 2.5 mg (1/2 x 5 mg) PO BID #90 tabs 02/05/25 10/07/25 10/06/25 08:00 Rx potassium chloride 8 mEq 8 meq PO DAILY #90 caps 03/03/25 10/07/25 10/06/25 09:00 Rx capsule,extended release furosemide 40 mg tablet 60 mg (1.5 x 40 mg) PO DAILY fluid 08/27/25 10/07/25 Unknown Rx build up #90 tabs fluticasone 250 mcg-salmeterol 50 1 ea inhalation BID 10/07/25 10/07/25 10/06/25 History mcg/dose blistr powdr for inhalation ([employer] Inhub) furosemide 20 mg tablet 60 mg PO DAILY 10/07/25 10/07/25 10/06/25 08:00 History trazodone 50 mg tablet 50 - 100 mg PO BEDTIME 10/07/25 10/07/25 10/06/25 20:00 History Allergies Allergy/AdvReac Type Severity Reaction Status Date / Time Penicillins Allergy Intermediate Unknown Verified 06/22/25 11:07 Current Medications Generic Name Dose Route Start Last Admin Trade Name Freq PRN Reason Stop Dose Admin Alprazolam 0.25 mg 10/06/25 20:43 10/06/25 21:44 Alprazolam 0.5 Mg Tablet PO 0.25 mg TID PRN Administration ANXIETY Escitalopram Oxalate 10 mg 10/07/25 05:00 10/07/25 06:18 Escitalopram 10 Mg Tablet PO 10 mg DAILY MAKENZIE Administration AMIODARONE HCL/D5W 900 mg in 500 mls @ 0 mls/hr 10/06/25 17:00 10/06/25 23:19 Amiodarone 900 Mg/500 Ml-D5w IV 0.5 mg/min .Q0M MAKENZIE 16.67 mls/hr Protocol Titration Per Protocol Sodium Chloride 1,000 mls @ 75 mls/hr 10/06/25 20:43 10/07/25 10:59 Sodium Chloride 0.9% IV 75 mls/hr .[id number] MAKENZIE Administration Insulin Human Lispro 0 unit 10/07/25 08:00 10/07/25 08:28 Insulin Lispro 100 Unit/1 Ml SUBCUT Not Given TIDWM [facility] Protocol Metoprolol Tartrate 25 mg 10/06/25 20:43 10/07/25 06:18 Metoprolol Tartrate 25 Mg Tablet PO 25 mg BID MAKENZIE Administration Morphine Sulfate 2 mg 10/06/25 20:43 10/07/25 09:24 Morphine 4 Mg/Ml Sdv 1 Ml IVP 2 mg Q4H PRN Administration SEVERE PAIN Ondansetron HCl 4 mg 10/06/25 20:43 10/06/25 22:50 Ondansetron 2 Mg/Ml Sdv 2 Ml IVP 4 mg Q8H PRN Administration vomiting, or N/V if npo Pantoprazole Sodium 40 mg 10/06/25 20:43 10/06/25 21:20 Pantoprazole 40 Mg Sdv IVP 40 mg Q24H MAKENZIE Administration Trazodone HCl 75 mg 10/06/25 21:00 10/06/25 21:19 Trazodone 50 Mg Tablet PO 75 mg BEDTIME MAKENZIE Administration PFSH Anesthesia Medical History (Updated 10/06/25 @ 18:52 by Caro Breen MD) CKD (chronic kidney disease) stage 3, GFR 30-59 ml/min Weight loss Chest pain Multiple sclerosis Type 2 diabetes mellitus Anxiety and depression Hyperlipidemia Hypertension COPD (chronic obstructive pulmonary disease) Surgical History History of appendectomy Family History Other Diabetes Hypertension Social History Smoking and tobacco/nicotine status: never used tobacco/nicotine Quit status (tobacco/nicotine): considering quitting Alcohol intake: never Substance/Drug Use: never Lives independently: Yes Household members: spouse Marital status: Current occupational status: unemployed Do you think of yourself as: Straight/Heterosexual Current gender identity: Female Data Anesthesia 10/07/25 00:20 10/07/25 00:20 Short CBC 10/06/25 10/07/25 Range/Units 16:21 00:20 WBC 8.22 14.13 H (3.29-11.43) 10^3/uL Hgb 8.60 L 7.70 L (11.27-16.99) g/dL Hct 29.7 L 26.9 L (36-47) % MCV 92.0 93.7 (85-98) fl Plt Count 331 312 (157-399) 10^3/cmm Neut % (Auto) 84.7 90.4 % Neut # (Auto) 6.96 12.77 H (1.8-7.7) 10^3/uL BMP 10/06/25 10/07/25 16:21 00:20 Sodium 136 135 L Potassium 4.9 4.9 Chloride 95 L 96 L Carbon Dioxide 34 H 31 H BUN 25 H 22 Creatinine 2.3 H 2.1 H Glucose 220 H 223 H Calcium 9.2 8.6 Cardiac Enzymes 10/06/25 10/07/25 Range/Units 16:21 00:20 Creatine Kinase 40 (26-192) U/L NT-Pro-B Natriuret Pep 5811 H (0-450) pg/mL Liver Function 10/06/25 10/07/25 Range/Units 16:21 00:20 Total Bilirubin 0.2 0.2 (0.15-1.2) mg/dL AST 12 17 (0-32) U/L ALT < 5 7 (0-33) U/L Alkaline Phosphatase 108 H 93 (35-105) U/L Albumin 4.0 3.9 (3.5-5.2) g/dL Urine 10/06/25 Range/Units 16:35 Urine Color Yellow (Yellow) Urine Appearance Clear (CLEAR) Urine pH 5.5 (5-7) Ur Specific [place] 1.017 (1.005-1.030) Urine Protein Trace A (Negative) Urine Glucose (UA) Negative (Normal) Urine Ketones Negative (Negative) Urine Nitrate Negative (Negative) Urine Bilirubin Negative (Negative) Ur Leukocyte Esterase Negative (Negative) Urine RBC 0-2 (0-2) /hpf Urine WBC 0-5 (0-5) /hpf Blood Bank 10/07/25 09:54 Blood Type O Positive Rho(D) Type Rh positive Antibody Screen Negative Coags 10/06/25 16:21 PT 12.80 INR 0.90 APTT 29.9 Cardiac Studies: Echocardiogram 02/19/23 Echocardiogram Ultrasound 12/27/19 Cardiac Event Monitor 08/01/23
--- NOTE | 2025-10-07 12:40 | PM.CONSULT ---
Providers/Reason For Consult Consulting Physician/Specialty*: Hospitalist Reason for Consult*: Left femoral neck fracture Attending Physician: Adalberto Roman MD Primary Care Provider: Reva Govea APN History of Present Illness History of Present Illness Deidra De La Torre is a 79 year old female had a fall at home sustaining a left femoral neck fracture. She is well-known to me from treating her right proximal humerus fracture. At this point she is complaining of pain in the left hip does not radiate it is isolated to the hip. Discussed procedure with the family daughter was present who I talked to in clinic with about her shoulder. Review of Systems Narrative: Constitutional symptoms: Negative except as documented in HPI. Skin symptoms: Negative except as documented in HPI. Eye symptoms: Negative except as documented in HPI. ENMT symptoms: Negative except as documented in HPI. Respiratory symptoms: Negative except as documented in HPI. Cardiovascular symptoms: Negative except as documented in HPI. Gastrointestinal symptoms: Negative except as documented in HPI. Genitourinary symptoms: Negative except as documented in HPI. Musculoskeletal symptoms: Negative except as documented in HPI. Neurologic symptoms: Negative except as documented in HPI. Psychiatric symptoms: Negative except as documented in HPI. Endocrine symptoms: Negative except as documented in HPI. Medications/Allergies Home Medications ?Medication ?Instructions ?Recorded ?Confirmed ?Last Taken ?Type albuterol sulfate 2.5 mg/3 mL 2.5 mg inhalation Q4H PRN 12/29/19 10/07/25 Unknown History (0.083 %) solution for nebulization Shortness Of Breath metoprolol tartrate 25 mg tablet 25 mg PO BID #60 tabs 04/10/20 10/07/25 10/06/25 19:00 Rx pantoprazole 40 mg tablet,delayed 40 mg PO QPM 04/10/20 10/07/25 10/06/25 08:00 History release cholecalciferol (vitamin D3) 10 10 mcg PO DAILY 07/18/22 10/07/25 10/06/25 08:00 History mcg (400 unit) tablet budesonide 0.5 mg/2 mL suspension 0.5 mg inhalation BID PRN 10/10/23 10/07/25 Unknown History for nebulization (Pulmicort) Shortness Of Breath alprazolam 0.5 mg tablet 0.25 mg (1/2 x 0.5 mg) PO TID PRN 03/13/24 10/07/25 10/06/25 Rx Anxiety #30 tabs digoxin 125 mcg (0.125 mg) tablet 0.0625 mcg (0.0005 x 125 mcg 03/13/24 10/07/25 10/06/25 Rx (0.125 mg)) PO EVERY OTHER DAY #1 tab escitalopram oxalate 10 mg tablet 10 mg PO DAILY #90 tabs 03/13/24 10/07/25 10/06/25 08:00 Rx metformin 500 mg tablet,extended 500 mg PO QAM 10/15/24 10/07/25 10/06/25 09:00 History release 24 hr apixaban 5 mg tablet (Eliquis) 2.5 mg (1/2 x 5 mg) PO BID #90 tabs 02/05/25 10/07/25 10/06/25 08:00 Rx potassium chloride 8 mEq 8 meq PO DAILY #90 caps 03/03/25 10/07/25 10/06/25 09:00 Rx capsule,extended release furosemide 40 mg tablet 60 mg (1.5 x 40 mg) PO DAILY fluid 08/27/25 10/07/25 Unknown Rx build up #90 tabs fluticasone 250 mcg-salmeterol 50 1 ea inhalation BID 10/07/25 10/07/25 10/06/25 History mcg/dose blistr powdr for inhalation (Jana Venegas) furosemide 20 mg tablet 60 mg PO DAILY 10/07/25 10/07/25 10/06/25 08:00 History trazodone 50 mg tablet 50 - 100 mg PO BEDTIME 10/07/25 10/07/25 10/06/25 20:00 History Allergies Allergy/AdvReac Type Severity Reaction Status Date / Time Penicillins Allergy Intermediate Unknown Verified 06/22/25 11:07 Current Medications Generic Name Dose Route Start Last Admin Trade Name Freq PRN Reason Stop Dose Admin Alprazolam 0.25 mg 10/06/25 20:43 10/06/25 21:44 Alprazolam 0.5 Mg Tablet PO 0.25 mg TID PRN Administration ANXIETY Escitalopram Oxalate 10 mg 10/07/25 05:00 10/07/25 06:18 Escitalopram 10 Mg Tablet PO 10 mg DAILY MAKENZIE Administration AMIODARONE HCL/D5W 900 mg in 500 mls @ 0 mls/hr 10/06/25 17:00 10/06/25 23:19 Amiodarone 900 Mg/500 Ml-D5w IV 0.5 mg/min .Q0M MAKENZIE 16.67 mls/hr Protocol Titration Per Protocol Sodium Chloride 1,000 mls @ 75 mls/hr 10/06/25 20:43 10/07/25 10:59 Sodium Chloride 0.9% IV 75 mls/hr .[id number] MAKENZIE Administration Insulin Human Lispro 0 unit 10/07/25 08:00 10/07/25 08:28 Insulin Lispro 100 Unit/1 Ml SUBCUT Not Given TIDWM MAKENZIE Protocol Metoprolol Tartrate 25 mg 10/06/25 20:43 10/07/25 06:18 Metoprolol Tartrate 25 Mg Tablet PO 25 mg BID MAKENZIE Administration Morphine Sulfate 2 mg 10/06/25 20:43 10/07/25 09:24 Morphine 4 Mg/Ml Sdv 1 Ml IVP 2 mg Q4H PRN Administration SEVERE PAIN Ondansetron HCl 4 mg 10/06/25 20:43 10/06/25 22:50 Ondansetron 2 Mg/Ml Sdv 2 Ml IVP 4 mg Q8H PRN Administration vomiting, or N/V if npo Pantoprazole Sodium 40 mg 10/06/25 20:43 10/06/25 21:20 Pantoprazole 40 Mg Sdv IVP 40 mg Q24H MAKENZIE Administration Trazodone HCl 75 mg 10/06/25 21:00 10/06/25 21:19 Trazodone 50 Mg Tablet PO 75 mg BEDTIME MAKENZIE Administration PFSH Acute PFSH: Medical History (Updated 10/06/25 @ 18:52 by Caro Breen MD) CKD (chronic kidney disease) stage 3, GFR 30-59 ml/min Weight loss Chest pain Multiple sclerosis Type 2 diabetes mellitus Anxiety and depression Hyperlipidemia Hypertension COPD (chronic obstructive pulmonary disease) Surgical History History of appendectomy Family History Other Diabetes Hypertension Social History Smoking and tobacco/nicotine status: never used tobacco/nicotine Quit status (tobacco/nicotine): considering quitting Alcohol intake: never Substance/Drug Use: never Lives independently: Yes Household members: spouse Marital status: Current occupational status: unemployed Do you think of yourself as: Straight/Heterosexual Current gender identity: Female Vitals/I&O/Wt Last Vital Signs Temp 100.5 F H 10/07/25 11:32 Pulse 105 H 10/07/25 11:32 Resp 20 H 10/07/25 11:32 BP 116/61 10/07/25 11:32 Pulse Ox 95 10/07/25 11:32 O2 Del Method Room Air 10/07/25 11:32 O2 Flow Rate 3 10/07/25 11:32 10/06/25 10/07/25 10/07/25 22:59 06:59 14:59 Intake Total 1100 / 1100 199.98 / 1299.98 1000 / 1000 Output Total 350 / 350 Balance 1100 / 1100 199.98 / 1299.98 650 / 650 Weight last 48 hrs Weight 117 lb Physical Exam Narrative: Alert and oriented x 3 Head is normocephalic atraumatic Respirations are intact No evidence of any rashes or infection 5/5 strength in bilateral upper and lower extremities Sensation intact in all extremities Left lower extremity shortened externally rotated Urinary Catheter Management: Jefferson: Cath Placed During This Visit: yes Reason for Continuing Indwelling Catheter: Required Immobilization for Trauma or Surgery or Anesthesia Urinary Catheter Date of Insertion: 10/06/25 Urinary Catheter Time of Insertion: 17:50 Data 10/07/25 00:20 10/07/25 00:20 A&P Assessment and plan 1. Closed left hip fracture: Left hip hemiarthroplasty plan for today PDMP PDMP Reviewed: Not Reviewed Consult Attestations Medical Necessity Statement: Per primary service Coding Level of Care Code Acute Code for Chg Fwd Diagnoses Closed left hip fracture S72.002A
--- NOTE | 2025-10-07 12:53 | P.PN_ITS ---
Subjective 2 Subjective: Patient was seen in the emergency room, she is awaiting a bed on [facility], currently in atrial fibrillation with rate controlled on amiodarone at 0.5, she is alert to person, to place, not to time she follows commands her complaint is left hip pain her daughter is at bedside, Vitals/I&O/Wt Last Vital Signs Temp 100.5 F H 10/07/25 11:32 Pulse 105 H 10/07/25 11:32 Resp 20 H 10/07/25 11:32 BP 116/61 10/07/25 11:32 Pulse Ox 95 10/07/25 11:32 O2 Del Method Room Air 10/07/25 11:32 O2 Flow Rate 3 10/07/25 11:32 10/06/25 10/07/25 10/07/25 22:59 06:59 14:59 Intake Total 1100 / 1100 199.98 / 1299.98 1000 / 1000 Output Total 350 / 350 Balance 1100 / 1100 199.98 / 1299.98 650 / 650 Weight last 48 hrs Weight 53.07 kg Physical Exam 2 Const: COMMON NORMALS: no acute distress ORIENTATION/CONSCIOUSNESS: Yes awake, Yes oriented to person and Yes oriented to place; not oriented to time Eye: COMMON NORMALS: Equal, round and reactive pupils present PUPIL: Yes Equal, round and reactive pupils present Neck/C-Spine: COMMON NORMALS: no JVD Resp: COMMON NORMALS: normal respiratory effort, No retractions, No use of accessory muscles and clear to auscultation bilaterally AUSCULTATION: clear to auscultation bilaterally Cardio: COMMON NORMALS: no JVD, regular rate, regular rhythm, S1 normal heart sound present and S2 normal heart sound present RATE: regular rate RHYTHM: regular rhythm HEART SOUNDS: S1 normal heart sound present and S2 normal heart sound present GI: COMMON NORMALS: Normal to inspection, nondistended, normoactive bowel sounds present and non-tender Extremity: COMMON NORMALS: no pedal edema Neuro: SENSORIUM/ORIENTATION: Yes oriented to person, Yes oriented to place and No oriented to time Psych: COMMON NORMALS: mental status grossly normal Urinary Catheter Management: Jefferson: Cath Placed During This Visit: yes Reason for Continuing Indwelling Catheter: Required Immobilization for Trauma or Surgery or Anesthesia Urinary Catheter Date of Insertion: 10/06/25 Urinary Catheter Time of Insertion: 17:50 Data 10/07/25 00:20 10/07/25 00:20 A&P Assessment and plan 1. Type 2 diabetes mellitus: 2. CKD (chronic kidney disease) stage 3, GFR 30-59 ml/min: 3. Chronic anemia: 4. Acute kidney injury: 5. Closed left hip fracture: 6. Atrial fibrillation with rapid ventricular response: Plan: Left hip fracture XR/XR hip LT 2-3V wo/w pel* [id number] IMPRESSION: Subcapital fracture of the proximal left femur. Plan - N.p.o. - Morphine for pain control - Orthopedic consulted Last dose of Eliquis was 10/05/2020 4 in the evening, did not take her Eliquis this morning 1118 Acute kidney injury - IV fluids Diastolic CHF elevated BNP - Elevated BNP - Hold diuresis Type 2 diabetes mellitus, low-dose sliding scale Atrial fibrillation with rapid ventricular response - Amiodarone drip - Metoprolol Leukocytosis? - Low-grade temperature at 11 AM - Sputum culture - Blood culture - Urine culture - Respiratory viral panel -Possible aspiration? - Has a penicillin allergy start aztreonam prophylactically History of dementia History of multiple sclerosis Full code, confirmed with patient, family at bedside SCDs for DVT prophylaxis, anticoagulation currently on hold as there is plan on surgery tomorrow PDMP PDMP Reviewed: Not Reviewed Attestations 2 Medical Necessity Statement*: Patient requires hospitalization for left hip fracture, leukocytosis Diagnoses Type 2 diabetes mellitus E11.9 CKD (chronic kidney disease) stage 3, GFR 30-59 ml/min N18.30 Chronic anemia D64.9 Acute kidney injury N17.9 Closed left hip fracture S72.002A Atrial fibrillation with rapid ventricular response I48.91
--- NOTE | 2025-10-07 14:08 | XR_ITS ---
WS: [id number] XR pelvis 1-2V* [id number] REASON FOR EXAM: Postop FINDINGS: Total left hip arthroplasty. Components of the arthroplasty are intact and in proper position and alignment. No focal bone abnormality. XR/XR pelvis 1-2V* [id number] IMPRESSION: Total left hip arthroplasty without abnormality.
--- NOTE | 2025-10-07 14:13 | PM.OP ---
Operative Report Date of procedure: October 07, 2025 Pre-op diagnosis: Left femoral neck fracture Post-op diagnosis: same Procedure done: Left hip hemiarthroplasty Surgeon: Nikunj Gallego DO Estimated blood loss (mL): 20 Procedure: Left hip hemiarthroplasty Patient is brought to the operative suite after undergoing anesthesia placed in the lateral decubitus position. All areas of impingement were well-padded. Patient's prepped and draped normal sterile fashion. Skin incision made over the left hip. IT band was split. Modified Slaughter approach was used the capsule and abductors were taken anteriorly. The fracture was identified. Femoral neck cut was made proximal 1 fingerbreadth above the lesser trochanter. The head was measured to be 47. The canal was broached to 7. A size 7 stem with a standard neck offset and negative for neck length and 47 head from [place] Accolade 2 were not implanted. Hip was reduced felt to be stable in all ranges of motion. A FiberWire was used to repair the abductors and capsule. Then IT band was repaired with 0 Vicryl skin was closed with 2-0 Vicryl and Monocryl suture. Sterile dressings were applied patient is transferred to the PACU in stable condition.
--- NOTE | 2025-10-07 15:05 | ANE.PACU2 ---
Inpatient post-anesthesia follow up: Airway intact: Yes (ETT in place) Vital signs: Temperature 99.1 F Pulse Rate 71 Respiratory Rate 14 Blood Pressure 117/67 Pulse Oximetry 98 Oxygen Delivery Me thod Mechanical Ventila tion Oxygen Flow Rate 3 Fraction of Inspir ed Oxygen 40 Hydration adequate: Yes Nausea and vomiting: No Pain level: Other (Unknown, patient sedated) Mental status: Altered (Patient sedated) Additional Comments: Difficulties throughout procedure to receive adequate tidal volumes with high peak pressures in the upper 30s. All anesthesia gas was blown off and patient was still not making any effort to breathe on her own. Decision was made to remain intubated and go to the ICU. ABG was drawn. Bronchoscopy performed throughout procedure which was nondefinitive besides narrow airway. 7-0 tube was all that would fit. Extensive discussions had with patient's daughter and she understands patient needing to remain intubated at this time. Blood pressure stabilized in the ICU not requiring any pressors upon handoff
[2025-10-07] MEDS: propofol 1,000 MG/100 ML INJ 1.59 MG IV (15:15)
[2025-10-07 15:17] LABS: ABG PCO2 55.2 mmHg (35-45); ABG PH Result 7.24 (7.35-7.45); HCO3 ABG 23.4 mmol/L (22-26); Oxygen Saturation ABG 99.9; PO2 ABG 302.0 mmHg (80.0-100.0)
[2025-10-07 15:18] LABS: PO2 FiO2 Ratio Arterial Blood 302; Potassium Level - ABG 5.4 mmol/L (3.5-5.0); Sodium Level - ABG 137.0 mmol/L (131-143)
[2025-10-07 15:20] LABS: Arterial Blood Gas Hematocrit 33.6 % (37-47); Blood Gas CCRB Time 1510; Blood Gas Sample Type ARTERIAL; Ionized Calcium Level - ABG 1.1 mmol/L (1.1-1.4)
[2025-10-07 15:21] LABS: Carboxyhemoglobin 0.7 %THgb (0.4-20.1); Methemoglobin 1.2 % (0.4-1.5)
--- NOTE | 2025-10-07 15:21 | XR_ITS ---
WS: [id number] XR chest 1V portable [id number] REASON FOR EXAM: ET tube placement FINDINGS: Very difficult to identify the level of the maribell. The ET tube tip is above what is perceived as the maribell. Compared to examination of 3:27 p.m. 10/07/2025 a large left pneumothorax has developed. 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 (Confirmed by CT scan of 06/04/2024). XR/XR chest 1V portable [id number] IMPRESSION: ET tube placement as above. Left pneumothorax
[2025-10-07 15:22] LABS: Glucose Level-ABG 294.0 mg/dL (70-115)
[2025-10-07] MEDS: fentaNYL 50 mcg/mL INJ 2mL IVP (16:08)
--- NOTE | 2025-10-07 16:09 | PC.NURSE ---
Central Line Placement Consent obtained patient prepped and draped in sterile fashion by Dr. Roman 2mg of versed given at 1605 1609: Time out performed 1624: Procedure completed, sterile dressing applied, awaiting xray for confirmation of placement.
--- NOTE | 2025-10-07 16:15 | XRR_ITS ---
PROCEDURE INFORMATION: Exam: XR Chest Exam date and time: 10/07/2025 5:24 PM Age: 79 years old Clinical indication: Device placement; Other: Central line; Additional info: Central line placement TECHNIQUE: Imaging protocol: Radiologic exam of the chest. Views: 1 view. COMPARISON: CR XR chest 1V portable [id number] 10/07/2025 4:23 PM FINDINGS: Tubes, catheters and devices: Endotracheal tube terminates above the maribell. Right IJ central venous catheter terminates in the SVC. Lungs: Streaky atelectasis at the right lung base. Pleural spaces: Redemonstrated large left sided pneumothorax with left lung collapse. No large pleural effusion. Heart/Mediastinum: Heart size is normal. Bones/joints: Redemonstrated right humeral neck fracture. XR/XR chest 1V portable [id number] IMPRESSION: 1. Right IJ central venous catheter terminates in the SVC. 2. Large left-sided pneumothorax with partial left lung collapse is again seen.
[2025-10-07] MEDS: midazolam 1 mg/mL INJ 2 mL 2 MG IVP (16:31)
[2025-10-07] MEDS: dexmedeTOMIDine 0.9 % NaCL 400 MCG/100 ML PREMIX IV (16:32)
[2025-10-07] MEDS: FUROsemide 10 mg/mL SDV 4mL 40 MG IVP (16:38)
[2025-10-07] MEDS: norepinephrine 4 MG/250 ML BAG 18.75 MG IV (16:38)
[2025-10-07] MEDS: aztreonam 1,000 MG in sodium chloride 0.9% (plus) 50 ML 100 MG IV (16:38)
--- NOTE | 2025-10-07 16:39 | PM.CONSULT ---
Providers/Reason For Consult Consulting Physician/Specialty*: Dr. Glover Reason for Consult*: Vent management and other acute issues. Attending Physician: Adalberto Roman MD Primary Care Provider: Reva Govea APN History of Present Illness History of Present Illness Deidra De La Torre is a 79 year old female with past medical history of multiple sclerosis, atrial fibrillation, on anticoagulation therapy, history of congestive heart failure, history of seizure, history of dementia comes into the hospital complaining of left hip pain initially on 10/06/2025. Was also found to be in A-fib with RVR and placed on amnio drip. Taken to surgery for hip fracture repair, started having difficulty bagging and ventilating. Chest x-ray in ICU taken showed large left-sided pneumothorax. Plan to pressures at 32 on the ventilator. Has a 7.0 tube was a difficult airway per report. Was having difficulty oxygenating and ventilating postoperatively. Review of systems unobtainable patient is on the vent. Medications/Allergies Home Medications ?Medication ?Instructions ?Recorded ?Confirmed ?Last Taken ?Type albuterol sulfate 2.5 mg/3 mL 2.5 mg inhalation Q4H PRN 12/29/19 10/07/25 Unknown History (0.083 %) solution for nebulization Shortness Of Breath metoprolol tartrate 25 mg tablet 25 mg PO BID #60 tabs 04/10/20 10/07/25 10/06/25 19:00 Rx pantoprazole 40 mg tablet,delayed 40 mg PO QPM 04/10/20 10/07/25 10/06/25 08:00 History release cholecalciferol (vitamin D3) 10 10 mcg PO DAILY 07/18/22 10/07/25 10/06/25 08:00 History mcg (400 unit) tablet budesonide 0.5 mg/2 mL suspension 0.5 mg inhalation BID PRN 10/10/23 10/07/25 Unknown History for nebulization (Pulmicort) Shortness Of Breath alprazolam 0.5 mg tablet 0.25 mg (1/2 x 0.5 mg) PO TID PRN 03/13/24 10/07/25 10/06/25 Rx Anxiety #30 tabs digoxin 125 mcg (0.125 mg) tablet 0.0625 mcg (0.0005 x 125 mcg 03/13/24 10/07/25 10/06/25 Rx (0.125 mg)) PO EVERY OTHER DAY #1 tab escitalopram oxalate 10 mg tablet 10 mg PO DAILY #90 tabs 03/13/24 10/07/25 10/06/25 08:00 Rx metformin 500 mg tablet,extended 500 mg PO QAM 10/15/24 10/07/25 10/06/25 09:00 History release 24 hr apixaban 5 mg tablet (Eliquis) 2.5 mg (1/2 x 5 mg) PO BID #90 tabs 02/05/25 10/07/25 10/06/25 08:00 Rx potassium chloride 8 mEq 8 meq PO DAILY #90 caps 03/03/25 10/07/25 10/06/25 09:00 Rx capsule,extended release furosemide 40 mg tablet 60 mg (1.5 x 40 mg) PO DAILY fluid 08/27/25 10/07/25 Unknown Rx build up #90 tabs fluticasone 250 mcg-salmeterol 50 1 ea inhalation BID 10/07/25 10/07/25 10/06/25 History mcg/dose blistr powdr for inhalation (Wixela Inhub) furosemide 20 mg tablet 60 mg PO DAILY 10/07/25 10/07/25 10/06/25 08:00 History trazodone 50 mg tablet 50 - 100 mg PO BEDTIME 10/07/25 10/07/25 10/06/25 20:00 History Allergies Allergy/AdvReac Type Severity Reaction Status Date / Time Penicillins Allergy Intermediate Unknown Verified 06/22/25 11:07 Current Medications Generic Name Dose Route Start Last Admin Trade Name Freq PRN Reason Stop Dose Admin Albuterol/Ipratropium 3 ml 10/07/25 16:00 10/07/25 15:58 Ipratropium-Albuterol 3 Ml Neb INHALATION 3 ml Q4H.RESPIRATORY MAKENZIE Administration Alprazolam 0.25 mg 10/06/25 20:43 10/06/25 21:44 Alprazolam 0.5 Mg Tablet PO 0.25 mg TID PRN Administration ANXIETY Budesonide 0.5 mg 10/07/25 15:30 10/07/25 15:58 Budesonide 0.5 Mg/2 Ml Neb INHALATION 0.5 mg BID.RESPIRATORY MAKENZIE Administration Escitalopram Oxalate 10 mg 10/07/25 05:00 10/07/25 06:18 Escitalopram 10 Mg Tablet PO 10 mg DAILY MAKENZIE Administration AMIODARONE HCL/D5W 900 mg in 500 mls @ 0 mls/hr 10/06/25 17:00 10/07/25 15:16 Amiodarone 900 Mg/500 Ml-D5w IV 0.5 mg/min .Q0M MAKENZIE 16.67 mls/hr Protocol Titration Per Protocol Aztreonam 1,000 mg/ Sodium 50 mls @ 100 mls/hr 10/07/25 13:00 10/07/25 16:38 Chloride IV 100 mls/hr Q12H MAKENZIE Administration Protocol Propofol 1,000 mg in 100 mls @ 0 mls/hr 10/07/25 15:15 10/07/25 15:16 Diprivan IV 0 mcg/kg/min .Q0M MAKENZIE 0 mls/hr Protocol Titration Per Protocol Norepinephrine Bitartrate 4 mg in 250 mls @ 0 mls/hr 10/07/25 16:00 10/07/25 16:38 Levophed IV 5 mcg/min .Q0M MAKENZIE 18.75 mls/hr Protocol Administration Per Protocol Dexmedetomidine/Sodium Chloride 400 mcg in 100 mls @ 0 mls/hr 10/07/25 16:15 10/07/25 16:32 Precedex IV 0.1 mcg/kg/hr .Q0M MAKENZIE 1.33 mls/hr Protocol Administration Per Protocol Insulin Human Lispro 0 unit 10/07/25 08:00 10/07/25 15:33 Insulin Lispro 100 Unit/1 Ml SUBCUT Not Given TIDWM MAKENZIE Protocol Morphine Sulfate 2 mg 10/06/25 20:43 10/07/25 09:24 Morphine 4 Mg/Ml Sdv 1 Ml IVP 2 mg Q4H PRN Administration SEVERE PAIN Ondansetron HCl 4 mg 10/06/25 20:43 10/06/25 22:50 Ondansetron 2 Mg/Ml Sdv 2 Ml IVP 4 mg Q8H PRN Administration vomiting, or N/V if npo Pantoprazole Sodium 40 mg 10/06/25 20:43 10/06/25 21:20 Pantoprazole 40 Mg Sdv IVP 40 mg Q24H MAKENZIE Administration Trazodone HCl 75 mg 10/06/25 21:00 10/06/25 21:19 Trazodone 50 Mg Tablet PO 75 mg BEDTIME MAKENZIE Administration PFSH Acute PFSH: Medical History (Updated 10/07/25 @ 16:43 by Yoni Cordoba MD) Pneumothorax with hemothorax, traumatic CKD (chronic kidney disease) stage 3, GFR 30-59 ml/min Weight loss Chest pain Multiple sclerosis Type 2 diabetes mellitus Anxiety and depression Hyperlipidemia Hypertension COPD (chronic obstructive pulmonary disease) Surgical History History of appendectomy Family History Other Diabetes Hypertension Social History Smoking and tobacco/nicotine status: never used tobacco/nicotine Quit status (tobacco/nicotine): considering quitting Alcohol intake: never Substance/Drug Use: never Lives independently: Yes Household members: spouse Marital status: Current occupational status: unemployed Do you think of yourself as: Straight/Heterosexual Current gender identity: Female Vitals/I&O/Wt Last Vital Signs Temp 100.5 F H 10/07/25 11:32 Pulse 97 10/07/25 16:15 Resp 12 10/07/25 16:00 BP 88/50 10/07/25 16:15 Pulse Ox 100 10/07/25 16:15 O2 Del Method Mechanical Ventilation 10/07/25 15:58 O2 Flow Rate 3 10/07/25 11:32 FiO2 100 10/07/25 16:00 10/07/25 10/07/25 10/07/25 06:59 14:59 22:59 Intake Total 199.98 / 1299.98 1250 / 1250 265.914 / 1515.914 Output Total 350 / 350 Balance 199.98 / 1299.98 900 / 900 265.914 / 1165.914 Weight last 48 hrs Weight 117 lb Physical Exam Narrative: Per RN General: Intubated sedated Pulmonary: Diminished breath sounds bilaterally Cardiovascular: rrr, nl s1s2, Abdomen: soft, nt, nd, no r/g, Extremities: no edema Neurologic: grossly intact Agree with above exam Urinary Catheter Management: Jefferson: Cath Placed During This Visit: yes Reason for Continuing Indwelling Catheter: Required Immobilization for Trauma or Surgery or Anesthesia Urinary Catheter Date of Insertion: 10/06/25 Urinary Catheter Time of Insertion: 17:50 Data 10/07/25 00:20 10/07/25 00:20 A&P Assessment and plan 1. Pneumothorax with hemothorax, traumatic: 2. COPD (chronic obstructive pulmonary disease): Plan: # Acute hypoxic hypercarbic hypoxic and hypercapnic -Continue ventilator support. Discussed with RT about reducing auto PEEP including tidal volumes currently. Allow permissive hypercapnia. Bronchopulmonary etiology therapy Awaiting chest tube placement plan Currently ABG pH 7.24, pCO2 55, pO2 302 on vent VC-AC tidal volume 350, rate 12, peak inspiratory pressure 28 Plateau 25, PEEP increased from 5 to 8 and 100% FiO2. Keep O2 sats between 88 to 92%. Repeat ABG again in 1 hour # Left-sided pneumothorax Conferenced with Dr. Sanabria. Reviewed chest x-ray from yesterday compared to postoperative, development of new pneumothorax on the left. awaiting chest tube placement. # Closed left femur hip fracture status post left hemiarthroplasty 10/07/2025 Per Ortho appreciate help # A-fib with RVR Continue close monitoring on Amio drip at 0.5 # KYLE on CKD stage III -Creatinine 2.1, baseline creatinine: 0.6 # Type 2 diabetes insulin sliding scale medium. Avoid hypoglycemia. Maintain blood sugars between 140-180. Dextrose drip if needed to maintain blood sugars above 70 # End-stage COPD # Chronic respiratory failure hypoxic and hypercapnic previously on home Trilogy vent # Chronic congestive heart failure -As needed Lasix, 1 dose to be given today. # Probable smoker -Observed for withdrawals mainly nicotine patch # Hyperglycemia- # Sedation-continue Versed and fentanyl pushes as needed for now. # Nutrition-n.p.o. for now # DVT GI prophylaxis-SCDs and famotidine. Hold off on anticoagulation secondary to anemia which could be acute blood loss. # Goals of care-d per primary team # CODE STATUS- FULL # Disposition-Will need full ICU support follow-up The high probability of a clinically significant, sudden or life threatening deterioration of the patient's [Respiratory, cardiac and renal] system(s) required my full and direct attention, intervention and personal management. The critical care time is as shown. This time is in addition to time spent performing any reported procedures but includes the following: [x] Data and vital sign review and interpretation [x] Patient assessment, examination and intervention [x] Documentation [x] Medication orders and management Critical Care Time (min): 45 Telemedicine Consent Patient seen today via Telemedicine by agreement and consent of patient.? Telemedicine technology used during the visit includes audio and, as available, review of images.? The patient encounter is appropriate and reasonable under the circumstances given the patient?s particular presentation at this time.? The patient has been advised of the potential risks and limitations of this mode of treatment (including but not limited to the absence of in-person examination) and has agreed to be treated in a remote fashion in spite of them.? Any, and all, of the patient?s/patient?s family?s questions on this issue have been answered and I have made no promises or guarantees to the patient. PDMP PDMP Reviewed: Not Reviewed Coding Level of Care Code Critical Care >/= 30 minutes Diagnoses Pneumothorax with hemothorax, traumatic S27.2XXA COPD (chronic obstructive pulmonary disease) J44.9
[2025-10-07 16:57] LABS: Alveolar-Arterial Oxygen Gradi 53.1 mmHg (5-10); Arterial Blood Gas Hematocrit 31.7 % (37-47); Blood Gas Operator Identificat GD; Blood Gas Sample Site Brachial, left; Blood Gas Sample Type Arterial; Blood Gas Tidal Volume 0.35; Carboxyhemoglobin 0.8 %THgb (0.4-20.1); Glucose Level-ABG 302.0 mg/dL (70-115); HCO3 ABG 24.4 mmol/L (22-26); Ionized Calcium Level - ABG 1.2 mmol/L (1.1-1.4); Methemoglobin 1.1 % (0.4-1.5); Oxygen Saturation ABG > 99.1; PEEP 8.0 cmH20; PO2 ABG 219.0 mmHg (80.0-100.0); PO2 FiO2 Ratio Arterial Blood 219; Potassium Level - ABG 5.1 mmol/L (3.5-5.0); Sodium Level - ABG 137.0 mmol/L (131-143)
--- NOTE | 2025-10-07 17:02 | PC.NURSE ---
Chest Tube Insertion: Left chest draped in sterile fashion and time out performed 165. Procedure done by Dr. Blanco, using a Bry chest tube. [address] 1712 Site dressed in sterile fashion with xeroform, vasoline dressing, and ABD pad, secured with tape 1718 Xray in room to shoot.
--- NOTE | 2025-10-07 17:05 | XRR_ITS ---
PROCEDURE INFORMATION: Exam: XR Chest Exam date and time: 10/07/2025 6:27 PM Age: 79 years old Clinical indication: Device placement; Chest tube TECHNIQUE: Imaging protocol: Radiologic exam of the chest. Views: 1 view. COMPARISON: CR (CHEST, ) 10/07/2025 5:24 PM FINDINGS: Tubes, catheters and devices: Endotracheal tube terminates above the maribell. Central venous catheter tip is in the SVC. Lungs: Atelectasis of the right lung base. Emphysematous changes. No focal airspace opacity. Pleural spaces: Status post placement of a left pigtail catheter with some re-expansion of the right lung and decreased pneumothorax. Small right pleural effusion. Heart/Mediastinum: Heart size is normal. Bones/joints: Unremarkable. XR/XR chest 1V portable [id number] IMPRESSION: Decreased large left-sided pneumothorax status post pigtail catheter placement.
--- NOTE | 2025-10-07 17:10 | PHA.VACGOAL ---
Vancomycin Goal - Goal Vancomycin Goal:: 15-20 mg/L Vancomycin Indication:: Pneumonia - Therapy Current therapy:: Clindamycin Day of therpy:: Day []of [] . Actual body weight (kg): 117 lb - Data Labs: WBC 14.13 10^3/uL (3.29-11.43) H 10/07/25 00:20 RBC 2.87 10^6/uL (3.85-5.65) L 10/07/25 00:20 Hgb 7.70 g/dL (11.27-16.99) L 10/07/25 00:20 Hct 26.9 % (36-47) L 10/07/25 00:20 MCV 93.7 fl (85-98) 10/07/25 00:20 MCH 26.8 pg (27-33) L 10/07/25 00:20 MCHC 28.6 g/dL (30-55) L 10/07/25 00:20 RDW 15.3 % (12.1-15.1) H 10/07/25 00:20 Sodium 135 mmol/L (136-145) L 10/07/25 00:20 Potassium 4.9 mmol/L (3.5-5.1) 10/07/25 00:20 Chloride 96 mmol/L (98-107) L 10/07/25 00:20 Carbon Dioxide 31 mmol/L (22-29) H 10/07/25 00:20 Anion Gap 12.9 (5-19) 10/07/25 00:20 BUN 22 mg/dL (8-23) 10/07/25 00:20 Creatinine 2.1 mg/dL (0.5-0.9) H 10/07/25 00:20 GFR Calculation Not Reportable 10/07/25 00:20 Last dialysis session:: N/A Treatment plan:: new consult Regimen:: SPUTUM CULTURE COLLECTED. NO OFFICIAL DIAGNOSIS ENTERED AT THIS TIME. CRCL 18.38 ML/MIN. PATIENT HAS CKD DIAGNOSIS, WILL PULSE DOSE. LOADING DOSE 1000 MG. WILL OBTAIN TROUGH IN 24 HOURS TO DETERMINE FURTHER DOSING.
[2025-10-07 17:13] LABS: ABG PH Result 7.14 (7.35-7.45)
[2025-10-07 17:14] LABS: ABG PCO2 72.1 mmHg (35-45)
--- NOTE | 2025-10-07 17:24 | P.PNCC_ITS ---
Critical Care Event Note The high probability of a clinically significant, sudden or life threatening deterioration of the patient's [] system(s) required my full and direct attention, intervention and personal management. The critical care time is as shown. This time is in addition to time spent performing any reported procedures but includes the following: [x] Data and vital sign review and interpretation [x] Patient assessment, examination and intervention [x] Documentation [x] Medication orders and management Critical Care Time Code activated: No Critical Care Time (min): 35 Additional information about critical care time: - Patient was seen postoperatively, in ICU -Spoke to anesthesia, patient had high peak pressures, requiring albuterol, tim- - Currently on 100% FiO2, respiratory therapy at bedside, O2 sats in the 90s, mean arterial pressure around 65, -On examination she is barrel chested, no tracheal deviation I can detect, she has decreased air movement in bilateral lung mejia -Concerns for bronchospasm versus pneumothorax versus severe underlying COPD versus pulmonary edema - Concern for pneumothorax, stat chest x-ray ordered - Ordered 40 of IV push Lasix -she has a unit of blood ordered for anemia - Antibiotic therapy broadened to vancomycin, - She is on aztreonam -DuoNeb, budesonide ordered - Solu-Medrol 125 followed by 40 mg IV every 8 hours -Pulmonary was consulted, -MAP is less than 65, started on Levophed through peripheral IV - Chest x-ray obtained, showing large left pneumothorax -Discussed with family in the waiting room, and likely postoperative co mplication, rupture of left lung bleb, causing left pneumothorax -Discussed CT scan back in May 2024, showed severe emphysema, with bibasilar bullae, -Discussed critical nature of large left pneumothorax while patient is intubated, with positive airway pressure, risk of cardiac arrest, and morbidity and mortality associated -Discussed risk and benefits of chest tube placement, patient's daughter voiced understanding, all questions answered, shared decision making, agrees to proceed with left chest tube placement -Discussed goals of care she remains a full code -Spoke to general surgery, they recommended for me to get in touch with the ER given patient's history of COPD, history of Trilogy ventilator, complicated history - Spoke to ER, Dr. Blanco is here to place left-sided chest tube for left pneumothorax - Currently in the ICU to place left chest tube Coding Level of Care Code Acute Code for Chg Fwd
--- NOTE | 2025-10-07 17:36 | P.ANES_ITS ---
Anesthesia Procedures Procedure/Date: 10/07/25 Central Venous Insert: Time Out Performed: Yes Consent: requested by attending/covering physician, from other (patient daughter), risks and benefits reviewed and patient agrees to proceed Central Line: New Anesthesia monitors: pulse oximetry, EKG, BP cuff and oxygen Vein cannulated: right internal jugular Ultrasound used: to identify patency to vessel and to visualize needle entry to vein Post procedure: Obtain Chest X-Ray Additional Comments: - Due to MAP being less than 65, Levophe d requirements - Discussed recent benefits of central l ine placement with patient's , patient's , shared decision making, they voiced understanding, all questions answered, agreed to proceed - Right IJ central line placement - Visualize needle entry into right IJ - Drawback of dark red nonpulsatile bloo d - Visualized guidewire entry into right IJ
--- NOTE | 2025-10-07 17:44 | ECG_ITS ---
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 Measurements Intervals [place] Rate: 101 P: 0 OH: 0 QRS: 68 QRSD: 103 T: 88 QT: 378 QTc: 492 Interpretive Statements ATRIAL FLUTTER/TACHYCARDIA WITH RAPID VENTRICULAR RESPONSE LOW QRS VOLTAGE [QRS DEFLECTION < 0.5/1.0 mV IN LIMB/CHEST LEADS] ANTEROSEPTAL MYOCARDIAL INFARCTION , OF INDETERMINATE AGE [40+ ms Q WAVE IN V1-V4] MARKED ST ELEVATION, CONSIDER INFERIOR INJURY [MARKED ST ELEVATION W/O NORMALLY INFLECTED T-WAVE IN II/aVF] ACUTE MA Compared to ECG 10/06/2025 15:51:57 Low QRS voltage now present ST (T wave) deviation now present Atrial fibrillation no longer present Myocardial infarct finding still present Electronically Signed On 10-07-2025 23:58:08 BLAST FURNACE HELPER by Wily Mayfield M.D. [email or web address]
--- NOTE | 2025-10-07 17:49 | ECG_ITS ---
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 Measurements Intervals [place] Rate: 105 P: 0 MS: 0 QRS: 60 QRSD: 90 T: 83 QT: 360 QTc: 477 Interpretive Statements ATRIAL FLUTTER/TACHYCARDIA WITH RAPID VENTRICULAR RESPONSE LOW QRS VOLTAGE [QRS DEFLECTION < 0.5/1.0 mV IN LIMB/CHEST LEADS] ANTEROSEPTAL MYOCARDIAL INFARCTION , OF INDETERMINATE AGE [40+ ms Q WAVE IN V1-V4] MARKED ST ELEVATION, CONSIDER INFERIOR INJURY [MARKED ST ELEVATION W/O NORMALLY INFLECTED T-WAVE IN II/aVF] ACUTE ND INTERPRETATION BASED ON A DEFAULT AGE OF 40 YEARS Compared to ECG 10/07/2025 17:43:41 No significant changes Electronically Signed On 10-07-2025 23:52:38 PAPER CONE GRADER by Wily Mayfield M.D. [id number]
[2025-10-07] MEDS: methylPREDNISolone sod succ 125 mg/2 mL INJ IVP (18:04)
[2025-10-07] MEDS: fentaNYL 1,000 MCG/100 ML BAG 2.5 MCG IV (18:15)
--- NOTE | 2025-10-07 18:17 | ECG_ITS ---
[facility] Date: 2025-10-07 Pat Name: Deidra De La Torre Department: Room: [facility] Gender: Female Chassis Engineer: : 1945 Requested By: Adalberto Roman Order Number: [id number] Rasta MD: Wily Mayfield M.D. Measurements Intervals [place] Rate: 91 P: 0 GA: 0 QRS: 67 QRSD: 90 T: 0 QT: 260 QTc: 320 Interpretive Statements ATRIAL FIBRILLATION LOW QRS VOLTAGE [QRS DEFLECTION < 0.5/1.0 mV IN LIMB/CHEST LEADS] SEPTAL MYOCARDIAL INFARCTION , PROBABLY OLD [40+ ms Q WAVE IN V1/V2] Compared to ECG 10/07/2025 17:43:41 Atrial flutter no longer present ST (T wave) deviation no longer present Myocardial infarct finding still present Electronically Signed On 10-07-2025 23:52:33 INTAKE COUNSELOR by Wily Mayfield M.D. [email or web address] [id number]
[2025-10-07] MEDS: AMIODARONE HCL/D5W 900 MG/500 ML BAG 16.67 MG IV (18:29)
--- NOTE | 2025-10-07 18:30 | XRR_ITS ---
PROCEDURE INFORMATION: Exam: XR Chest Exam date and time: 10/07/2025 7:27 PM Age: 79 years old Clinical indication: Condition or disease; Lung condition and disease; Pneumothorax; Additional info: Left ptx size TECHNIQUE: Imaging protocol: Radiologic exam of the chest. Views: 1 view. COMPARISON: CR (CHEST, ) 10/07/2025 6:27 PM FINDINGS: Tubes, catheters and devices: Endotracheal tube terminates in the midtrachea. Right IJ central venous catheter terminates in the SVC. Pigtail catheter overlies the left midlung. Lungs: Again seen are severe emphysematous changes. Atelectasis at the right lung base. Otherwise no focal airspace opacity. Pleural spaces: Interval decrease in left basilar pneumothorax with some re-expansion of the lower lobe. Small right pleural effusion. Heart/Mediastinum: Heart size is normal. Bones/joints: Right humeral neck fracture again visualized. Soft tissues: Left chest wall subcutaneous emphysema. XR/XR chest 1V portable [id number] IMPRESSION: Interval decrease in left basilar pneumothorax compared with prior exam. Small right pleural effusion.
--- NOTE | 2025-10-07 18:36 | USCV_ITS ---
Deidra De La Torre Age: 79 Gender: F : 1945 Exam Date: 10/07/2025 19:11 Ordering Phys: Brian Kwon M.D ([email or web address]) Technologist: MARY Exam Location: [facility] Indication: Patient is on ventilator in ICU-9 s/p ORIF LEFT hip with LEFT pneumothorax and chest tube. History MS, Afib, CHF, seizures BP: 88 / 50 HR: 56 Rhythm: Atrial fibrillation with bradycardia Technical Quality: Adequate MEASUREMENTS (Male / Female) Normal Values 2D ECHO LV Diastolic Diameter PLAX 2.8 cm 4.2 - 5.9 / 3.9 - 5.3 cm IVS Diastolic Thickness 1.2 cm 0.6 - 1.0 / 0.6 - 0.9 cm IVS Systolic Thickness 1.5 cm LVPW Diastolic Thickness 1.1 cm 0.6 - 1.0 / 0.6 - 0.9 cm LVPW Systolic Thickness 1.7 cm LVOT Diameter 1.7 cm LV Ejection Fraction 2D Teich 34.9 % LV Ejection Fraction MOD 4C 29.5 % LV Ejection Fraction MOD 2C 34.5 % LV Ejection Fraction 2C AL 27.9 % LA Diameter 3.2 cm Aorta at Sinotubular Diameter 2.7 cm IVC Diameter 1.9 cm M-MODE LA Ao Ratio MM 0.8 AV Cusp Separation MM 1.8 cm DOPPLER AV Peak Velocity 72.0 cm/s LVOT Peak Velocity 51.0 cm/s AV Area Cont Eq vti 1.3 cm squared AV Area Cont Eq pk 1.5 cm squared MV Peak Velocity 83.0 cm/s MV Area PHT 7.3 cm squared Mitral E to A Ratio 0.0 TV Peak Velocity 298.3 cm/s TR Peak Velocity 307.0 cm/s TR Peak Gradient 37.7 mmHg TV Peak E Velocity 43.0 cm/s PV Peak Velocity 65.0 cm/s FINDINGS Left Ventricle Technically limited quality echocardiogram because of poor ultrasonic windows. Left ventricle is normal in size. Grossly LV systolic function is borderline low. Right Ventricle Appears to be mildly hypokinetic. Right Atrium Dilated Left Atrium Dilated IA Septum Mitral Valve Grossly normal mitral valve. Mild mitral regurgitation. Aortic Valve Aortic valve is thickened. No significant stenosis or regurgitation Tricuspid Valve Moderate to severe tricuspid regurgitation. RVSP is 45-50 mmHg. This is consistent with moderate pulmonary hypertension. Pulmonic Valve Not well-visualized Pericardium Normal Aorta Normal in size IVC Appears to be dilated CONCLUSIONS Technically limited quality echocardiogram because of poor ultrasonic windows. Grossly LV systolic function is borderline low. RV appears to be mildly hypokinetic. Biatrial enlargement. Mild mitral regurgitation. Moderate to severe tricuspid regurgitation. Moderate pulmonary hypertension. IVC appears to be dilated. Brian Kwon MD (Electronically Signed) Final Date: 08 October 2025 13:53 S
--- NOTE | 2025-10-07 18:39 | PC.NURSE ---
Received orders for echo from Dr. Kwon, orders placed.
--- NOTE | 2025-10-07 19:23 | PC.NURSE ---
Patient arrived from OR intubated with diminished lung sounds. Patient's blood pressure started to get soft, Central line was placed by Dr. Roman for levophed and other medications. Patient was found to have a pneumothorax. Patient had a chest tube placed by Dr. Sarabia. Dr. Cordoba ordered to keep chest tube to 20 of suction continuously overnight and to make sure there was no subcu air.
[2025-10-07 19:28] LABS: Hematocrit 31.3 % (36-47); Hemoglobin 8.80 g/dL (11.27-16.99); Mean Corpuscular HGB Conc 28.1 g/dL (30-55); Mean Corpuscular Hemoglobin 26.7 pg (27-33); Mean Corpuscular Volume 94.8 fl (85-98); Nucleated Red Blood Cells % 0 %; Platelet Count 265 10^3/cmm (157-399); Red Blood Count 3.30 10^6/uL (3.85-5.65); White Blood Count 16.23 10^3/uL (3.29-11.43)
--- NOTE | 2025-10-07 19:31 | PM.CCNAC ---
Critical Care Event Note The high probability of a clinically significant, sudden or life threatening deterioration of the patient's [] system(s) required my full and direct attention, intervention and personal management. The critical care time is as shown. This time is in addition to time spent performing any reported procedures but includes the following: [x] Data and vital sign review and interpretation [x] Patient assessment, examination and intervention [x] Documentation [x] Medication orders and management Critical Care Time Code activated: No Critical Care Time (min): 25 Additional information about critical care time: - Patient's status post chest tube placement - Repeat chest x-ray shows expansion of left lung, spoke to Dr. garrido and pulmonary - Will repeat chest x-ray at about 630 - Monitor for reexpansion - Patient is on fentanyl for sedation, Precedex, MAP is about 65 on 8 of Levophed - I had a family meeting with patient's family - Discussed patient's postoperative course pneumothorax likely from rupture of lung bleb - Now requiring chest tube placement - Discussed morbidity and mortality associated, prognosis - Discussed given her underlying lung disease, COPD, dementia, MS, the possibility of requiring transfer for pleurodesis if the airleak does not resolve - Discussed morbidity and mortality of underlying condition, they voiced understanding, all questions answered - Discussed steroids, antibiotics - Will monitor closely in the ICU - Answered all family's questions - They voiced understanding, all questions answered, agreed to proceed - Nursing staff messaged me that patient has ST-T wave changes in EKG - Reviewed EKG at around 6 PM, does have nonspecific ST-T wave changes in anterior leads, no reciprocal ST depressions - Per cardiology, will repeat EKG at 615, troponin series, echo - Repeat EKG at 615 does not show any acute ST-T wave changes will continue to monitor troponin series - Will hold off on blood thinners due to postoperative anemia - Decision on resuming blood thinners based on clinical progress, monitor hemoglobin every 4 hours patient has required 2 units of blood so far Coding Level of Care Code Critical Care
--- NOTE | 2025-10-07 19:36 | CTR_ITS ---
PROCEDURE INFORMATION: Exam: CT Chest Without Contrast; Diagnostic Exam date and time: 10/07/2025 8:00 PM Age: 79 years old Clinical indication: Shortness of breath; Prior surgery; Surgery date: Post-operative (0-2 days); Surgery type: Chest tube placement; Additional info: Left ptx TECHNIQUE: Imaging protocol: Diagnostic computed tomography of the chest without contrast. Radiation optimization: All CT scans at this facility use at least one of these dose optimization techniques: automated exposure control; mA and/or kV adjustment per patient size (includes targeted exams where dose is matched to clinical indication); or iterative reconstruction. COMPARISON: CT chest wo con [id number] 06/04/2024 6:18 PM RADIATION DOSE METRICS: Total DLP (mGy-cm): 364.44 FINDINGS: Tubes, catheters and devices: Endotracheal tube terminates in the midtrachea. Right IJ central venous catheter terminates at the cavoatrial junction. Pigtail catheter terminates in the left anterior pleural space. Thyroid: 7 mm right thyroid nodule. Lungs: Extensive emphysema with large bullae occupying the left lower lobe. Partial atelectasis of the left upper lobe. Lung nodules measuring up to 4 mm in the right lung are stable compared with prior chest CT on 06/04/2024. Pleural spaces: Small left anterobasilar pneumothorax is slightly decreased in size from prior chest x-ray when accounting for differences in technique. Small loculated right pleural effusion. Heart: Heart size is normal. No pericardial effusion. Coronary arteries: Coronary artery calcifications Lymph nodes: No supraclavicular, axillary, mediastinal, or hilar adenopathy. Vasculature: Intimal calcifications of the aorta and it proximal branch vessels. Gallbladder and biliary ducts: The gallbladder wall appears edematous and contains dense material and a 6 mm calcified stone. Intraperitoneal space: Small perihepatic ascites. Bones/joints: Healing right humeral neck fracture. Age-indeterminate compression deformity of the L2 vertebral body, new since prior exam on 06/04/2024 Soft tissues: Left chest wall subcutaneous emphysema. CT/CT chest wo con [id number] IMPRESSION: 1. Slightly decreased in size of left anterobasilar pneumothorax compared with prior chest x-ray. 2. Small loculated right pleural effusion. 3. Extensive emphysematous changes, with large bulla occupying the left lower lobe. 4. Several lung nodules measuring up to 4 mm in the right lung, stable compared with the 06/04/2024. 5. Small perihepatic ascites. 6. Gallbladder wall appears thickened and edematous and contains dense material, possibly sludge and cholelithiasis. Recommend CT abdomen and pelvis and/or right upper quadrant ultrasound for further evaluation. 7. Age-indeterminate compression deformity of the L2 vertebral body, new since prior exam on 06/04/2024. COMMENTS: Consistent with the [employer]'s Incidental Findings Committee white paper (J Am Griselda Radiol 2015): In patients aged 35 years and older with an incidental thyroid nodule equal to or greater than 1.[address], MRI or extrathyroidal US, further evaluation with dedicated thyroid US is recommended for patients with normal life expectancy and without comorbidities. For smaller nodules without suspicious features, no further evaluation or follow up is recommended.
--- NOTE | 2025-10-07 19:58 | ECG_ITS ---
[facility]: [facility]25[facility]07 Pat Name: Deidra De La Torre Department: Room: [facility] Gender: Female Information Technology Advisor: : 1945 Requested By: Adalberto Roman Order Number: [id number] Rasta MD: Wily Mayfield M.D. Measurements Intervals [place] Rate: 58 P: 84 [place]: 164 QRS: 48 QRSD: 93 T: 72 QT: 450 QTc: 442 Interpretive Statements SINUS BRADYCARDIA LOW QRS VOLTAGE IN EXTREMITY LEADS [QRS DEFLECTION < 0.5 mV IN LIMB LEADS] Compared to ECG 10/07/2025 18:17:25 Atrial fibrillation no longer present Myocardial infarct finding no longer present Electronically Signed On 10-07-2025 23:57:45 HAT BRUSHER MACHINE by Wily Mayfield M.D. [email or web address]
[2025-10-07 19:59] LABS: Troponin(5th) Baseline 31 ng/L (0-10)
--- NOTE | 2025-10-07 20:00 | XRR_ITS ---
PROCEDURE INFORMATION: Exam: XR Chest Exam date and time: 10/07/2025 8:58 PM Age: 79 years old Clinical indication: Device placement; Prior surgery; Surgery date: Post-operative (0-2 days); Surgery type: Chest tube placement; Additional info: Follow up chest tube placement TECHNIQUE: Imaging protocol: Radiologic exam of the chest. Views: 1 view. COMPARISON: CT chest con [id number] 10/07/2025 8:00 PM FINDINGS: Tubes, catheters and devices: Endotracheal tube terminates in the mid trachea. Right IJ central venous catheter terminates in the cavoatrial junction. Pigtail catheter overlies the left midlung. Lungs: Some improved aeration in the left upper lobe. Pleural spaces: Left anterobasilar pneumothorax is similar to prior chest CT. Small right loculated pleural effusion. Heart/Mediastinum: Heart size is normal. Bones/joints: Healing right humeral neck fracture. XR/XR chest 1V portable [id number] IMPRESSION: 1. Left anterobasilar pneumothorax is similar to prior chest CT. 2. No significant interval change.
--- NOTE | 2025-10-07 20:01 | PC.NURSE ---
CT Dr. Roman contacted unit for update on patient; vital signs and drip rates relayed. Order received to go for stat chest CT and call Dr. Cordoba when completed. Furthermore, Patient's hgb resulted at 8.8. Order received to hold second unit of PRBCs.
[2025-10-07 20:10] LABS: Respiratory Syncytial Virus Ce NEGATIVE (Negative); SARS-CoV-2 PCR NEGATIVE (Negative)
--- NOTE | 2025-10-07 20:34 | PM.MISC ---
Miscellaneous Note Purpose of Documentation: To assess for signs of pneumothorax Note: Patient had a chest tube placed on the left. Subsequent chest x-ray showed questionable left lower lobe pneumothorax. Stat CT chest ordered that showed a large bleb in the LLL and a small residual apical pneumothorax noted with chest tube pigtail in good position. Discussed case with Dr. Blanco and Dr. delgado. We will avoid placing any large bore chest tubes at this time unless she has a break expanding pneumothorax in the morning in spite of the pigtail catheter. 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 Will repeat ABG at this time and get a chest x-ray in the morning again.
--- NOTE | 2025-10-07 21:00 | XRR_ITS ---
PROCEDURE INFORMATION: Exam: XR Chest Exam date and time: 10/07/2025 10:06 PM Age: 79 years old Clinical indication: Condition or disease; Lung condition and disease; Pneumothorax; Prior surgery; Surgery date: Post-operative (0-2 days); Surgery type: Chest tube; Additional info: Ptx TECHNIQUE: Imaging protocol: Radiologic exam of the chest. Views: 1 view. COMPARISON: CR (CHEST, ) 10/07/2025 8:58 PM FINDINGS: Tubes, catheters and devices: Endotracheal tube terminates in the midtrachea. Right IJ central venous catheter terminates in the SVC. Pigtail catheter projects over the left mid lung. Lungs: Improved aeration of the left upper lobe. Pleural spaces: Interval decrease in left basilar pneumothorax since prior chest x-ray time stamped 9:07 p.m. Heart/Mediastinum: Heart size is unremarkable. Bones/joints: Unremarkable. Soft tissues: Left chest wall subcutaneous emphysema is slightly decreased. XR/XR chest 1V portable [id number] IMPRESSION: Continued decrease in size of left basilar pneumothorax.
[2025-10-07] MEDS: pantoprazole 40 mg SDV IVP (21:34)
[2025-10-07 21:54] LABS: ABG PCO2 51.2 mmHg (35-45); ABG PH Result 7.31 (7.35-7.45); Alveolar-Arterial Oxygen Gradi 19.1 mmHg (5-10); Arterial Blood Gas Hematocrit 28.8 % (37-47); Blood Gas Allen Test Pos; Blood Gas Operator Identificat BD; Blood Gas Sample Site Brachial, left; Blood Gas Sample Type Arterial; Blood Gas Tidal Volume 0.40; Carboxyhemoglobin 1.1 %THgb (0.4-20.1); Glucose Level-ABG 331.0 mg/dL (70-115); HCO3 ABG 26.0 mmol/L (22-26); Ionized Calcium Level - ABG 1.1 mmol/L (1.1-1.4); Methemoglobin 1.3 % (0.4-1.5); Oxygen Saturation ABG > 99.1; PEEP 5.0 cmH20; PO2 ABG 146.0 mmHg (80.0-100.0); PO2 FiO2 Ratio Arterial Blood 292; Potassium Level - ABG 3.6 mmol/L (3.5-5.0); Sodium Level - ABG 139.0 mmol/L (131-143)
[2025-10-07 22:07] LABS: Troponin 5 2HR 26.53 ng/L (0-10)
[2025-10-07 22:16] LABS: Troponin 5 2HR Delta -4.47 ABS# (0-10)
--- NOTE | 2025-10-07 22:30 | PC.NURSE ---
Physician Communication At 2214, patient's blood pressure decreased to 68/40 while her rectal temperature was 94F. Levophed titrated per JAN and tasha hugger applied to patient. While applying tasha hugger, patient's eyes noted to be open and staring upward with no change in gaze direction despite stimulus. No motor response to painful stimuli. Precedex and Fentanyl administering per JAN. Dr. Henderson notified; order received to decrease fentanyl to allow for neurological assessment.
--- NOTE | 2025-10-07 23:00 | XRR_ITS ---
PROCEDURE INFORMATION: Exam: XR Chest Exam date and time: 10/08/2025 12:08 AM Age: 79 years old Clinical indication: Condition or disease; Lung condition and disease; Pneumothorax; Additional info: Ptx TECHNIQUE: Imaging protocol: Radiologic exam of the chest. Views: 1 view. COMPARISON: 1. CR (CHEST, ) 10/07/2025 10:[address] chest dated 10/07/2025 FINDINGS: Tubes, catheters and devices: The endotracheal tube terminates in the midthoracic trachea. A right internal jugular approach central venous catheter is present. The catheter tip terminates in the SVC. A left pigtail thoracostomy tube is present. Position is stable. Lungs: Stable left basilar lucency, which may favor blebs as noted on prior CT chest. Underlying residual pneumothorax is not excluded. Appearance is relatively stable from prior radiograph from 10/07/2025 at 10:10 p.m. Nonspecific bibasilar opacities, favoring atelectasis or pneumonia. Cephalization of upper lobe vasculature, which may be seen in the setting of emphysema. Pleural spaces: Subcutaneous gas along the left lateral thoracic wall, consistent with history of pneumothorax and thoracostomy tube. Heart/Mediastinum: Unremarkable. No cardiomegaly. Vasculature: Atherosclerotic changes of the aorta are noted. Bones/joints: Stable right proximal humeral neck fracture. XR/XR chest 1V portable [id number] IMPRESSION: 1. Stable left basilar lucency, which may favor blebs as seen on prior CT chest. Underlying residual pneumothorax is not excluded. Appearance is relatively stable from prior radiograph from 10/07/2025 at 10:10 p.m. 2. Nonspecific bibasilar opacities, favoring atelectasis or pneumonia. Infectious/inflammatory small airways disease is not completely excluded. 3. Emphysema. 4. Stable right proximal humeral neck fracture.
[2025-10-07 23:13] LABS: Hematocrit 29.9 % (36-47); Hemoglobin 8.80 g/dL (11.27-16.99); Mean Corpuscular HGB Conc 29.4 g/dL (30-55); Mean Corpuscular Hemoglobin 27.2 pg (27-33); Mean Corpuscular Volume 92.3 fl (85-98); Nucleated Red Blood Cells % 0 %; Platelet Count 260 10^3/cmm (157-399); Red Blood Count 3.24 10^6/uL (3.85-5.65); White Blood Count 12.93 10^3/uL (3.29-11.43)
--- NOTE | 2025-10-07 23:58 | ECG_ITS ---
[facility]08 Pat Name: Deidra De La Torre Department: Room: [facility]09 Gender: Female Commissions Specialist: : 1945 Requested By: Adalberto Roman Order Number: [id number] Rasta MD: Wily Mayfield M.D. Measurements Intervals [place] Rate: 66 P: 84 [place]: 160 QRS: 48 QRSD: 96 T: 88 QT: 315 QTc: 330 Interpretive Statements SINUS RHYTHM LOW QRS VOLTAGE IN EXTREMITY LEADS [QRS DEFLECTION < 0.5 mV IN LIMB LEADS] NONSPECIFIC ST & T-WAVE ABNORMALITY Compared to ECG 10/07/2025 20:49:52 T-wave abnormality now present Sinus bradycardia no longer present Electronically Signed On 10-08-2025 00:19:58 DIRECTOR OF MEDIA by Wily Mayfield M.D. [email or web address]
[2025-10-08] VITALS (113 sets, daily range): BP systolic 77–147; BP diastolic 42–78; PULSE 59–138; RESP 14–25; TEMP 34.9–37.7; O2SAT 88–100
[2025-10-08] MEDS: aztreonam 1,000 MG in sodium chloride 0.9% (plus) 50 ML 100 MG IV ×2 (00:55→12:41)
[2025-10-08 01:14] LABS: Troponin 5 6HR 26.37 ng/L (0-10)
[2025-10-08 01:15] LABS: Troponin 5 6HR Delta -4.63 ng/L (0-12)
--- NOTE | 2025-10-08 01:30 | PC.NURSE ---
Neurological Assessment At 14, patient attempting to obey commands by squeezing left hand and nodding her head appropriately to questions. At 99, patient exhibiting no response to any stimuli, including painful, with a blood pressure of 77/42. Levophed increased while fentanyl and precedex decreased per JAN. Dr. Henderson notified of neurological change from 14 to 99. History of seizures discussed. No new orders received.
--- NOTE | 2025-10-08 01:31 | PC.NURSE ---
Neurological Followup At 0130, patient opening eyes spontaneously and obeying commands. Slight agitation noted and when asked if patient was hurting, patient nodded her head yes. Fentanyl titrated per JAN.
[2025-10-08 02:27] LABS: Hematocrit 28.9 % (36-47); Hemoglobin 8.50 g/dL (11.27-16.99); Mean Corpuscular HGB Conc 29.4 g/dL (30-55); Mean Corpuscular Hemoglobin 26.6 pg (27-33); Mean Corpuscular Volume 90.6 fl (85-98); Nucleated Red Blood Cells % 0 %; Platelet Count 254 10^3/cmm (157-399); Red Blood Count 3.19 10^6/uL (3.85-5.65); White Blood Count 12.85 10^3/uL (3.29-11.43)
[2025-10-08] MEDS: fentaNYL 1,000 MCG/100 ML BAG 5 MCG IV (03:00)
[2025-10-08] MEDS: methylPREDNISolone sod succ 40 mg/mL INJ IVP ×3 (03:05→19:27)
--- NOTE | 2025-10-08 03:24 | PC.NURSE ---
Insulin Patient's blood sugar 386. Dr. Henderson notified; order received to administer 20 units subq insulin lispro once. High dose subq insulin lispro protocol indicates dose of 16 units; second verification received from physician to administer 20 units insulin lispro subq.
[2025-10-08 03:53] LABS: ABG PCO2 49.2 mmHg (35-45); ABG PH Result 7.31 (7.35-7.45); Arterial Blood Gas Hematocrit 28.3 % (37-47); Blood Gas Allen Test Pos; Blood Gas Operator Identificat BD; Blood Gas Sample Site Brachial, left; Blood Gas Sample Type Arterial; Blood Gas Tidal Volume 0.40; HCO3 ABG 24.5 mmol/L (22-26); PEEP 5.0 cmH20; PO2 ABG 96.7 mmHg (80.0-100.0); PO2 FiO2 Ratio Arterial Blood 241
--- NOTE | 2025-10-08 04:00 | XRR_ITS ---
PROCEDURE INFORMATION: Exam: XR Chest Exam date and time: 10/08/2025 5:56 AM Age: 79 years old Clinical indication: Shortness of breath; Prior surgery; Surgery date: Post-operative (0-2 days); Surgery type: Chest tube; Additional info: Ptx TECHNIQUE: Imaging protocol: Radiologic exam of the chest. Views: 1 view. COMPARISON: CR XR chest 1V portable [id number] 10/08/2025 12:08 AM FINDINGS: Tubes, catheters and devices: There is a left-sided chest tube again identified. The patient is intubated. The endotracheal tube tip is seen approximately 8 cm above the maribell. There is a right-sided internal jugular venous catheter approach central venous catheter projecting to the superior vena cava. Lungs: There is bibasilar atelectasis/effusion again noted. Pleural spaces: No pneumothorax is visualized. Heart/Mediastinum: Unremarkable. No cardiomegaly. Bones/joints: Unremarkable. XR/XR chest 1V portable [id number] IMPRESSION: No significant change.
[2025-10-08 06:07] LABS: Hematocrit 27.8 % (36-47); Hemoglobin 8.40 g/dL (11.27-16.99); Mean Corpuscular HGB Conc 30.2 g/dL (30-55); Mean Corpuscular Hemoglobin 27.6 pg (27-33); Mean Corpuscular Volume 91.4 fl (85-98); Nucleated Red Blood Cells % 0 %; Platelet Count 245 10^3/cmm (157-399); Red Blood Count 3.04 10^6/uL (3.85-5.65); White Blood Count 11.77 10^3/uL (3.29-11.43)
[2025-10-08 06:21] LABS: Alanine Aminotransferase 26 U/L (0-33); Albumin Level 3.3 g/dL (3.5-5.2); Alkaline Phosphatase 58 U/L (35-105); Anion Gap 15.0 (5-19); Aspartate Amino Transferase 44 U/L (0-32); Blood Urea Nitrogen 27 mg/dL (8-23); Calcium 8.2 mg/dL (8.5-10.5); Carbon Dioxide 26 mmol/L (22-29); Chloride 102 mmol/L (98-107); Globulin 2.3 g/dL (1.3-4.6); Glucose 317 mg/dL (65-115); Osmolality Calculated 305 mOsm/kg (285-295); Potassium 4.0 mmol/L (3.5-5.1); Sodium 139 mmol/L (136-145); Total Protein 5.6 g/dL (6.6-8.7)
[2025-10-08 06:22] LABS: INR 1.06 (0.8-1.2); Prothrombin Time 14.60 SECONDS (12.1-14.9)
[2025-10-08 06:29] LABS: Lactate (Lactic Acid level) 4.4 mmol/L (0.5-2.2)
[2025-10-08 06:31] LABS: NT Pro B Type Natriuretic Pept 8239 pg/mL (0-450); Procalcitonin 1.23 ng/mL (0-0.5)
[2025-10-08 06:35] LABS: Magnesium 1.8 mg/dL (1.7-2.3)
--- NOTE | 2025-10-08 08:25 | PC.NURSE ---
Dr. Farah rounded with patient. Left pleural chest tube placed to water seal as ordered.
--- NOTE | 2025-10-08 08:30 | P.PN_ITS ---
Subjective 2 Subjective: Deidra De La Torre is a 79 year old female with past medical history of multiple sclerosis, atrial fibrillation, on anticoagulation therapy, history of congestive heart failure, history of seizure, history of dementia comes into the hospital complaining of left hip pain initially on 10/06/2025. Was also found to be in A-fib with RVR and placed on amnio drip. Taken to surgery for hip fracture repair, started having difficulty bagging and ventilating. Chest x-ray in ICU taken showed large left-sided pneumothorax. Plan to pressures at 32 on the ventilator. Has a 7.0 tube was a difficult airway per report. Was having difficulty oxygenating and ventilating postoperatively. In 10/08/2025 On ventilator tolerating well Precedex at 0.2 amiodarone 0.5 levo at 4 Review of systems unobtainable patient is on the vent Vitals/I&O/Wt Last Vital Signs Temp 99.1 F 10/08/25 07:00 Pulse 71 10/08/25 07:11 Resp 14 10/08/25 07:11 BP 117/67 10/08/25 07:00 Pulse Ox 98 10/08/25 07:11 O2 Del Method Mechanical Ventilation 10/08/25 07:11 O2 Flow Rate 3 10/07/25 11:32 FiO2 40 10/08/25 08:00 10/07/25 10/08/25 10/08/25 22:59 06:59 14:59 Intake Total 1137.926 / 2387.926 254.832 / 2642.758 50 / 50 Output Total 750 / 1100 Balance 1137.926 / 2037.926 -495.168 / 1542.758 50 / 50 Weight last 48 hrs Weight 134 lb 7.712 oz Weight 117 lb Physical Exam 2 Narrative: Per RN General: Intubated sedated Pulmonary: Diminished breath sounds bilaterally Cardiovascular: rrr, nl s1s2, Abdomen: soft, nt, nd, no r/g, Extremities: no edema Neurologic: grossly intact Agree with above exam Urinary Catheter Management: [place]: Cath Placed During This Visit: yes Reason for Continuing Indwelling Catheter: Accurate Measurement of Urinary Output in Critically Ill Patients Urinary Catheter Date of Insertion: 10/06/25 Urinary Catheter Time of Insertion: 17:50 Data 10/08/25 09:57 10/08/25 05:52 Micro: Microbiology 10/07/25 18:42 Blood Culture - Preliminary Blood SPECIMEN COLLECTED 10/07/25 18:46 Blood Culture - Preliminary Blood SPECIMEN COLLECTED A&P Assessment and plan 1. Pneumothorax with hemothorax, traumatic: 2. COPD (chronic obstructive pulmonary disease): Plan: # Acute hypoxic hypercarbic hypoxic and hypercapnic -Continue ventilator support. -Reviewed ABG 10/08/2025 showing pH of 7.31/pCO2 49/pO2 241 PF Bronchopulmonary etiology therapy Awaiting chest tube placement plan Currently ABG pH 7.24, pCO2 55, pO2 302 on vent VC-AC tidal volume 400, rate 12, peak inspiratory pressure 20 Plateau 25, PEEP increased from 5 and 40% FiO2. Keep O2 sats between 88 to 92%. # Left-sided pneumothorax Reviewed chest x-ray from this morning and compared to last night 10/08/2025- independently interpreted images. Has a large left-sided lower lobe bleb as confirmed on CT chest from 10/07/2025. Pigtail catheter working well. Switch to waterseal reimaged on chest x-ray no pneumo seen. Will keep to waterseal overnight for now. Any signs of distress please place chest tube back to suction and get a chest x-ray # Closed left femur hip fracture status post left hemiarthroplasty 10/07/2025 Per Ortho appreciate help # A-fib with RVR Continue close monitoring on Amio drip at 0.5 # KYLE on CKD stage III -Creatinine 2.3, baseline creatinine: 0.6-labs reviewed 10/08/2025. Avoid nephrotoxic agents # Type 2 diabetes insulin sliding scale medium. Avoid hypoglycemia. Maintain blood sugars between 140-180. Dextrose drip if needed to maintain blood sugars above 70 # End-stage COPD # Chronic respiratory failure hypoxic and hypercapnic previously on home Trilogy vent # Chronic congestive heart failure -As needed Lasix # Probable smoker -Observed for withdrawals mainly nicotine patch # Hyperglycemia- # Sedation-continue Versed and fentanyl pushes as needed for now. Precedex wean off as tolerated # Nutrition-n.p.o. for now # DVT GI prophylaxis-SCDs and famotidine. Hold off on anticoagulation secondary to anemia which could be acute blood loss. # Goals of care-d per primary team # CODE STATUS- FULL # Disposition-Will need full ICU support follow-up The high probability of a clinically significant, sudden or life threatening deterioration of the patient's [Respiratory, cardiac and renal] system(s) required my full and direct attention, intervention and personal management. The critical care time is as shown. This time is in addition to time spent performing any reported procedures but includes the following: [x] Data and vital sign review and interpretation [x] Patient assessment, examination and intervention [x] Documentation [x] Medication orders and management Critical Care Time (min): 35 Telemedicine Consent Patient seen today via Telemedicine by agreement and consent of patient.? Telemedicine technology used during the visit includes audio and, as available, review of images.? The patient encounter is appropriate and reasonable under the circumstances given the patient?s particular presentation at this time.? The patient has been advised of the potential risks and limitations of this mode of treatment (including but not limited to the absence of in-person examination) and has agreed to be treated in a remote fashion in spite of them.? Any, and all, of the patient?s/patient?s family?s questions on this issue have been answered and I have made no promises or guarantees to the patient. PDMP PDMP Reviewed: Not Reviewed Attestations 2 Medical Necessity Statement*: Mechanical ventilation Coding Level of Care Code Critical Care >/= 30 minutes Diagnoses Pneumothorax with hemothorax, traumatic S27.2XXA COPD (chronic obstructive pulmonary disease) J44.9
--- NOTE | 2025-10-08 09:12 | P.CONIM_ITS ---
<Statement entered by Brian Kwon M.D - 10/11/25 13:32> Patient was cared for in conjunction with an advanced practice practitioner.? I reviewed the chart and all pertinent data including imaging, telemetry, and laboratory results.? I discussed the patient in detail with the advanced practice practitioner.? Please see? their documentation for consult note, testing results and agreed upon plan of care for the patient. Providers/Reason For Consult 2 Consulting Physician/Specialty*: Dr Kwon, interventional cardiology Reason for Consult*: atrial flutter with ischemic EKG changes Requesting Physician: Adalberto Roman MD Attending Physician: Adalberto Roman MD Primary Care Provider: Reva Govea APN History of Present Illness History of Present Illness Deidra De La Torre is a 79 year old female with past medical history of multiple sclerosis, atrial fibrillation, CKD, type 2 diabetes, hypertension, COPD. She was admitted to the hospital 10/06/2025 after a fall due to left hip pain, found to have a left femoral neck fracture which was treated with hemiarthroplasty yesterday. After the surgery she was found to have left-sided pneumothorax believed to be due to a ruptured bleb and chest tube was placed. She developed atrial flutter with inferior ST elevation yesterday evening, started on amiodarone infusion which resulted in conversion to sinus rhythm and resolution of the ST elevation. She has postoperative anemia, has received 2 units packed red blood cells and anticoagulation is on hold. She has elevated lactate 4.4, procalcitonin 1.23, febrile at 99 ?F. Requiring Levophed at 3 mcg/min currently, blood pressure stable in the 100s to 130 systolic range. She remains intubated and sedated. Troponin series 31-> 26-> 26. BNP 8239. She does not appear volume overloaded. Review of Systems 2 Narrative: Intubated and sedated Medications/Allergies Home Medications ?Medication ?Instructions ?Recorded ?Confirmed ?Last Taken ?Type albuterol sulfate 2.5 mg/3 mL 2.5 mg inhalation Q4H UT N 12/29/19 10/07/25 Unknown History (0.083 %) solution for nebulization Shortness Of Breat h metoprolol tartrate 25 mg tablet 25 mg PO BID #60 tabs 04/10/20 10/07/25 10/06/25 19:00 Rx pantoprazole 40 mg tablet,delayed 40 mg PO QPM 0 10/07/25 10/06/25 08:00 History release cholecalciferol (vitamin D3) 10 10 mcg PO DAILY 10/07/25 10/06/25 08:00 History mcg (400 unit) tablet budesonide 0.5 mg/2 mL suspension 0.5 mg inhalation BI D PRN 10/10/23 10/07/25 Unknown History for nebulization (Pulmicort) Shortness Of Breath alprazolam 0.5 mg tablet 0.25 mg (1/2 x 0.5 mg) PO TI D PRN 03/13/24 10/07/25 10/06/25 Rx Anxiety #30 tabs digoxin 125 mcg (0.125 mg) tablet 0.0625 mcg (0.0005 x 125 mcg 03/13/24 10/07/25 10/06/25 Rx (0.125 mg)) PO EVERY OTHER DAY #1 tab escitalopram oxalate 10 mg tablet 10 mg PO DAILY #90 t abs 03/13/24 10/07/25 10/06/25 08:00 Rx metformin 500 mg tablet,extended 500 mg PO QAM 4 10/07/25 10/06/25 09:00 History release 24 hr apixaban 5 mg tablet (Eliquis) 2.5 mg (1/2 x 5 mg) PO BID #90 tabs 02/05/25 10/07/25 10/06/25 08:00 Rx potassium chloride 8 mEq 8 meq PO DAILY #90 caps 02/1710/07/25 10/06/25 09:00 Rx capsule,extended release furosemide 40 mg tablet 60 mg (1.5 x 40 mg) PO DAILY fluid 08/27/25 10/07/25 Unknown Rx build up #90 tabs fluticasone 250 mcg-salmeterol 50 1 ea inhalation BID 10/07/25 10/07/25 10/06/25 History mcg/dose blistr powdr for inhalation (Wixela Inhub) furosemide 20 mg tablet 60 mg PO DAILY 10/07/2509/1910/06/25 08:00 History trazodone 50 mg tablet 50 - 100 mg PO BEDTIME 1110/07/25 10/06/25 20:00 History Allergies Allergy/AdvReac Type Severity Reaction Status Date / Time Penicillins Allergy Intermediate Unknown Verified 06/22/25 11:07 Current Medications Generic Name Dose Route Start Last Admin Trade Name Freq PRN Reason Stop Dose Admin Albuterol/Ipratropium 3 ml 10/07/25 16:00 10/08/25 07:11 Ipratropium-Albuterol 3 Ml Neb INHALATION 3 ml Q4H.RESPIRATORY MAKENZIE Administration Alprazolam 0.25 mg 10/06/25 20:43 10/06/25 21:44 Alprazolam 0.5 Mg Tablet PO 0.25 mg TID PRN Administration ANXIETY Budesonide 0.5 mg 10/07/25 15:30 10/08/25 07:11 Budesonide 0.5 Mg/2 Ml Neb INHALATION 0.5 mg BID.RESPIRATORY MAKENZIE Administration Escitalopram Oxalate 10 mg 10/07/25 05:00 10/08/25 05:18 Escitalopram 10 Mg Tablet PO Not Given DAILY MAKENZIE AMIODARONE HCL/D5W 900 mg in 500 mls @ 0 mls/hr 10/06/25 17:00 10/07/25 18:29 Amiodarone 900 Mg/500 Ml-D5w IV 0.5 mg/min .Q0M MAKENZIE 16.67 mls/hr Protocol Administration Per Protocol Aztreonam 1,000 mg/ Sodium 50 mls @ 100 mls/hr 10/07/25 13:00 10/08/25 03:11 Chloride IV Infused Q12H MAKENZIE Infusion Protocol Clindamycin HCl/Dextrose 600 mg in 50 mls @ 100 mls/hr 10/07/25 22:00 10/08/25 07:27 Cleocin IV 10/08/25 14:29 Infused Q8H MAKENZIE Infusion Protocol Propofol 1,000 mg in 100 mls @ 0 mls/hr 10/07/25 15:15 10/08/25 06:41 Diprivan IV 10 mcg/kg/min .Q0M MAKENZIE 3.18 mls/hr Protocol Titration Per Protocol Norepinephrine Bitartrate 4 mg in 250 mls @ 0 mls/hr 10/07/25 16:00 10/08/25 08:48 Levophed IV 3 mcg/min .Q0M MAKENZIE 11.25 mls/hr Protocol Titration Per Protocol Dexmedetomidine/Sodium Chloride 400 mcg in 100 mls @ 0 mls/hr 10/07/25 16:15 10/08/25 03:11 Precedex IV 0.3 mcg/kg/hr .Q0M MAKENZIE 3.98 mls/hr Protocol Titration Per Protocol Fentanyl 1,000 mcg in 100 mls @ 0 mls/hr 10/07/25 17:45 10/08/25 08:47 Sublimaze IV 125 mcg/hr .Q0M MAKENZIE 12.5 mls/hr Protocol Titration Per Protocol Insulin Human Lispro 0 unit 10/07/25 08:00 10/08/25 07:38 Insulin Lispro 100 Unit/1 Ml SUBCUT 8 unit TIDWM MAKENZIE Administration Protocol Methylprednisolone Sodium Succinate 40 mg 10/08/25 04:00 10/08/25 03:05 Methylprednisolone Sod Succ 40 Mg/Ml Inj IVP 40 mg Q8H MAKENZIE Administration Morphine Sulfate 2 mg 10/06/25 20:43 10/07/25 09:24 Morphine 4 Mg/Ml Sdv 1 Ml IVP 2 mg Q4H PRN Administration SEVERE PAIN Ondansetron HCl 4 mg 10/06/25 20:43 10/06/25 22:50 Ondansetron 2 Mg/Ml Sdv 2 Ml IVP 4 mg Q8H PRN Administration vomiting, or N/V if npo Pantoprazole Sodium 40 mg 10/06/25 20:43 10/07/25 21:34 Pantoprazole 40 Mg Sdv IVP 40 mg Q24H MAKENZIE Administration Trazodone HCl 75 mg 10/06/25 21:00 10/07/25 21:21 Trazodone 50 Mg Tablet PO Not Given BEDTIME MAKENZIE PFSH Acute 2 PFSH: Medical History Pneumothorax with hemothorax, traumatic CKD (chronic kidney disease) stage 3, GFR 30-59 ml/min Weight loss Chest pain Multiple sclerosis Type 2 diabetes mellitus Anxiety and depression Hyperlipidemia Hypertension COPD (chronic obstructive pulmonary disease) Surgical History History of appendectomy Family History Other Diabetes Hypertension Social History Smoking and tobacco/nicotine status: never used tobacco/nicotine Quit status (tobacco/nicotine): considering quitting Alcohol intake: never Substance/Drug Use: never Lives independently: Yes Household members: spouse Marital status: Current occupational status: unemployed Do you think of yourself as: Straight/Heterosexual Current gender identity: Female Vitals/I&O/Wt Last Vital Signs Temp 99.3 F 10/08/25 08:00 Pulse 91 10/08/25 08:30 Resp 16 10/08/25 08:00 BP 133/77 10/08/25 08:30 Pulse Ox 99 10/08/25 08:30 O2 Del Method Mechanical Ventilation 10/08/25 08:00 O2 Flow Rate 3 10/07/25 11:32 FiO2 40 10/08/25 08:00 10/07/25 10/08/25 10/08/25 22:59 06:59 14:59 Intake Total 1137.926 / 2642.758 254.832 / 2642.758 102.75 / 102.75 Output Total 750 / 1100 Balance 1137.926 / 1542.758 -495.168 / 1542.758 102.75 / 102.75 Weight last 48 hrs Weight 134 lb 7.712 oz Weight 117 lb Physical Exam 2 Resp: COMMON NORMALS: clear to auscultation bilaterally AUSCULTATION: clear to auscultation bilaterally OTHER: Intubated on ventilator Cardio: COMMON NORMALS: regular rate, regular rhythm, S1 normal heart sound present and S2 normal heart sound present RATE: regular rate RHYTHM: r egular rhythm HEART SOUNDS: S1 normal heart sound present and S2 normal heart sound present Extremity: GENERAL: No edema Urinary Catheter Management: Jefferson: Cath Placed During This Visit: yes Reason for Continuing Indwelling Catheter: Accurate Measurement of Urinary Output in Critically Ill Patients Urinary Catheter Date of Insertion: 10/06/25 Urinary Catheter Time of Insertion: 17:50 Data 10/08/25 09:57 10/08/25 05:52 Micro: Microbiology 10/07/25 18:42 Blood Culture - Preliminary Blood SPECIMEN COLLECTED 10/07/25 18:46 Blood Culture - Preliminary Blood SPECIMEN COLLECTED A&P Assessment and plan 1. Atrial fibrillation with rapid ventricular response: 2. Hypertension: 3. Hyperlipidemia: 4. Nicotine abuse: 5. Chronic anticoagulation: 6. Type 2 diabetes mellitus: 7. CKD (chronic kidney disease) stage 3, GFR 30-59 ml/min: 8. Chronic anemia: 9. Closed left hip fracture: 10. Pneumothorax with hemothorax, traumatic: Plan: She appears septic this morning, is receiving antibiotic therapy. Pulmonology managing pneumothorax and ventilator. Orthopedics following for left hip fracture s/p hemiarthroplasty. Troponin series showed very mild elevation and remained flat, in the setting of demand ischemia and sepsis. Continue amiodarone infusion until sepsis is resolved. She is in sinus rhythm at this time. May diurese gently as needed, no plans for coronary workup at this time, until she is more stable. Will plan to repeat echocardiogram once extubated, she had poor ultrasonic windows, possibly borderline low systolic function. PDMP PDMP Reviewed: Not Reviewed Coding Level of Care Code Acute Code for Chg Fwd Diagnoses Atrial fibrillation with rapid ventricular response I48.91 Hypertension I10 Hyperlipidemia E78.5 Nicotine abuse Z72.0 Chronic anticoagulation Z79.01 Type 2 diabetes mellitus E11.9 CKD (chronic kidney disease) stage 3, GFR 30-59 ml/min N18.30 Chronic anemia D64.9 Closed left hip fracture S72.002A Pneumothorax with hemothorax, traumatic S27.2XXA
[2025-10-08] MEDS: norepinephrine 4 MG/250 ML BAG 11.25 MG IV (09:34)
[2025-10-08 10:06] LABS: Hematocrit 27.8 % (36-47); Hemoglobin 8.40 g/dL (11.27-16.99); Mean Corpuscular HGB Conc 30.2 g/dL (30-55); Mean Corpuscular Hemoglobin 26.9 pg (27-33); Mean Corpuscular Volume 89.1 fl (85-98); Nucleated Red Blood Cells % 0 %; Platelet Count 250 10^3/cmm (157-399); Red Blood Count 3.12 10^6/uL (3.85-5.65); White Blood Count 15.12 10^3/uL (3.29-11.43)
--- NOTE | 2025-10-08 10:30 | XR_ITS ---
WS: [id number] XR chest 1V portable [id number] REASON FOR EXAM: chest tube placed to water seal at 0823 FINDINGS: Because of the extremely large bullae present in the left lower lobe it is somewhat difficult to evaluate for residual pneumothorax related to the left lower lung. As best as can be ascertained it appears the left lung is fully inflated without significant residual pneumothorax. The chest tube remains in place in the left hemithorax with no interval change in positioning compared to previous examinations. Right internal jugular central venous line nasogastric tube and ET tube all remain in proper position. XR/XR chest 1V portable [id number] IMPRESSION: There does not appear to be reaccumulation of left pneumothorax compared to the examination of 6:03 a.m. 10/08/2025.
[2025-10-08] MEDS: fentaNYL 1,000 MCG/100 ML BAG 15 MCG IV ×2 (11:50→17:36)
--- NOTE | 2025-10-08 12:17 | PC.OT ---
OT EVALUATION HELD TODAY PATIENT CURRENTLY INTUBATED
--- NOTE | 2025-10-08 14:00 | P.PN_ITS ---
Subjective 2 Subjective: - Patient was seen this morning - Currently intubated, sedated on mechan ical ventilation - She does awaken, when I examined her l eft pigtail catheter - Pupils are equal round reactive to lig ht, she does localize pain, she does turn her head towards me - Currently on Precedex, fentanyl for se dation - Currently on 4 Levophed - Currently on intubated on mechanical v entilation 40% FiO2 - No family members at bedside Vitals/I&O/Wt Last Vital Signs Temp 97.3 F L 10/08/25 12:00 Pulse 97 10/08/25 12:30 Resp 14 10/08/25 12:00 BP 135/70 10/08/25 12:30 Pulse Ox 100 10/08/25 12:30 O2 Del Method Mechanical Ventilation 10/08/25 12:00 O2 Flow Rate 3 10/07/25 11:32 FiO2 40 10/08/25 12:00 10/07/25 10/08/25 10/08/25 22:59 06:59 14:59 Intake Total 1137.926 / 2387.926 254.832 / 2642.758 297.166 / 297.166 Output Total 750 / 1100 Balance 1137.926 / 2037.926 -495.168 / 1542.758 297.166 / 297.166 Weight last 48 hrs Weight 61 kg Weight 53.07 kg Physical Exam 2 Const: COMMON NORMALS: no acute distress OTHER: Intubated, sedated on mechanical ventilation Eye: COMMON NORMALS: Equal, round and reactive pupils present PUPIL: Yes Equal, round and reactive pupils present Lymph: LYMPHATIC: no lymphadenopathy noted Resp: COMMON NORMALS: normal respiratory effort, No retractions, No use of accessory muscles and clear to auscultation bilaterally AUSCULTATION: clear to auscultation bilaterally Cardio: COMMON NORMALS: regular rate, regular rhythm, S1 normal heart sound present and S2 normal heart sound present RATE: regular rate RHYTHM: r egular rhythm HEART SOUNDS: S1 normal heart sound present and S2 normal heart sound present GI: COMMON NORMALS: Normal to inspection, nondistended, normoactive bowel sounds present and non-tender Extremity: COMMON NORMALS: no pedal edema Psych: COMMON NORMALS: mental status grossly normal Skin: COMMON NORMALS: turgor normal NARRATIVE SKIN EXAM: Left pigtail catheter in chest present, Right internal jugular central line in place GENERAL SKIN EXAM: turgor normal Urinary Catheter Management: Jefferson: Cath Placed During This Visit: yes Reason for Continuing Indwelling Catheter: Accurate Measurement of Urinary Output in Critically Ill Patients Urinary Catheter Date of Insertion: 10/06/25 Urinary Catheter Time of Insertion: 17:50 Quick SOFA Score: Respiratory Rate: 14 Blood Pressure: 135/70 [place] Coma Scale: 7 qSOFA Score: 1 If qSOFA score 2 or greater, continue: PaO2/FiO2 Ratio (mmHg): 241 Blood Pressure Mean: 91 Bilirubin (mg/dl): 0.4 Platelets (x10?/ml): 250 C reatinine (mg/dl): 2.3 SOFA Score: 7 Evaluation: Current stage of sepsis: septic shock Sepsis stage criteria used: [facility] Sep-1 and Sepsis-3 Crystalloid fluids: less than 30 mL/kg crystalloid fluids ordered Blood cultures ordered: Yes Possible source: p ulmonary Focused Exam: Vital signs: Temp Pulse Resp BP Pulse Ox O2 Del Method FiO2 10/08/25 12:30 97 135/70 100 10/08/25 12:15 87 135/70 100 10/08/25 12:00 97.3 F L 94 14 120/63 100 Mechanical Ventila tion 40 10/08/25 11:45 86 147/77 100 10/08/25 11:30 88 147/77 100 10/08/25 11:17 84 14 100 Mechanical Ventila tion 40 10/08/25 11:15 74 146/74 100 10/08/25 11:00 84 144/73 100 Mechanical Ventila tion 40 10/08/25 10:45 87 142/75 100 10/08/25 10:30 80 142/75 100 10/08/25 10:15 89 135/78 100 10/08/25 10:12 14 98 40 10/08/25 10:00 87 16 120/69 100 Mechanical Ventila tion 40 10/08/25 09:45 86 127/71 100 10/08/25 09:30 86 110/63 100 10/08/25 09:15 92 115/64 99 10/08/25 09:00 88 16 115/64 98 Mechanical Ventila tion 40 10/08/25 08:45 94 133/77 98 10/08/25 08:30 91 133/77 99 10/08/25 08:15 84 136/65 99 10/08/25 08:00 99.3 F 92 16 136/76 99 Mechanical Ventila tion 40 10/08/25 08:00 40 10/08/25 07:45 91 128/72 99 10/08/25 07:30 87 134/71 100 10/08/25 07:15 81 124/65 98 10/08/25 07:11 71 14 98 Mechanical Ventila tion 40 10/08/25 07:11 14 98 40 10/08/25 07:00 99.1 F 90 117/67 98 10/08/25 06:45 94 100/57 97 10/08/25 06:30 95 82/46 98 10/08/25 06:15 86 117/63 92 10/08/25 06:00 90 109/56 99 10/08/25 05:45 76 109/56 98 10/08/25 05:30 80 111/57 98 10/08/25 05:28 88 10/08/25 05:15 87 110/56 97 10/08/25 05:00 89 112/55 98 10/08/25 04:45 90 104/53 97 10/08/25 04:30 92 109/54 98 10/08/25 04:15 99.9 F H 95 25 H 102/51 98 Mechanical Ventila tion 40 10/08/25 04:00 90 104/51 98 10/08/25 03:45 87 113/59 98 10/08/25 03:32 18 99 40 10/08/25 03:31 86 21 H 99 Mechanical Ventila tion 40 10/08/25 03:30 85 113/59 100 10/08/25 03:15 83 115/53 99 10/08/25 03:00 81 119/57 97 10/08/25 02:45 82 113/57 97 10/08/25 02:30 78 128/55 97 10/08/25 02:15 97.7 F 80 17 128/55 98 Mechanical Ventila tion 40 10/08/25 02:13 81 128/61 98 Respiratory exam: CTA bilaterally Cardiovascular exam: regular rate, regular rhythm, S1 normal heart sound and S2 normal heart sound Capillary refill: < 3 Seconds Peripheral pulse strength: 2+ Slightly Diminished P eripheral pulse location: Radial and Pedal Skin exam: turgor normal Date exam was performed: 10/08/25 Time exam was performed: 14:11 2 Sepsis Screen No Definite Risk 10/06/25, 20:00 Respiratory Rate, (12 - 18) 14 breaths/min Today, 12:00 Blood Pressure 135/70 mmHg Today, 12:30 [place] Coma Scale Score 7 Today, 12:00 Quick SOFA Score 0 10/06/25, 20:00 SOFA Score: 2 ABG PO2/FiO2 Ratio 241 Today, 03:45 [place] Coma Scale Score 7 Today, 12:00 Blood Pressure Mean 91 mmHg Today, 12:30 Total Bilirubin, (0.15-1.2) 0.4 mg/dL Today, 05:52 Platelet Count, (157-399) 250 10^3/cmm Today, 09:57 Creatinine, (0.5-0.9) 2.3 mg/dL H Today, 05:52 Data 10/08/25 09:57 10/08/25 05:52 Micro: Microbiology 10/07/25 15:45 Gram Stain - Final Sputum - Endotracheal Tube Aspirate Sputum Culture - Preliminary 10/07/25 18:42 Blood Culture - Preliminary Blood SPECIMEN COLLECTED 10/07/25 18:46 Blood Culture - Preliminary Blood SPECIMEN COLLECTED A&P Assessment and plan 1. Type 2 diabetes mellitus: 2. CKD (chronic kidney disease) stage 3, GFR 30-59 ml/min: 3. Chronic anemia: 4. Acute kidney injury: 5. Closed left hip fracture: 6. Atrial fibrillation with rapid ventricular response: 7. Closed hip fracture: 8. Acute respiratory failure with hypoxia and hypercapnia: 9. Pneumothorax with hemothorax, traumatic: 10. Chronic respiratory failure with hypoxia and hypercapnia: 11. COPD (chronic obstructive pulmonary disease): 12. Septic shock: 13. Primary hypertension: 14. Mixed hyperlipidemia: 15. Nicotine abuse: 16. Chronic anticoagulation: Plan: Acute hypoxic hypercarbic respiratory failure - With underlying COPD, chronic respiratory failure with hypoxia and hypercapnia on home trilogy vent -With history of systolic and diastolic CHF - With left sided pneumothorax - Concern for pneumonia Plan -Currently intubated, sedated on mechanical ventilation - Fentanyl for pain - Precedex and propofol for sedation - Monitor respiratory status closely - Vancomycin - Aztreonam - Sputum culture - Blood culture - Solu-Medrol 40 mg IV every 8 hours - DuoNeb - Budesonide - Lasix dosing based on clinical progress Left-sided pneumothorax - Seen on chest x-ray 09/1925 at 1546, postoperatively - Status post chest tube placement by Dr. Blanco CT chest CT/CT chest wo con [id number] IMPRESSION: 1. Slightly decreased in size of left anterobasilar pneumothorax compared with prior chest x-ray. 2. Small loculated right pleural effusion. 3. Extensive emphysematous changes, with large bulla occupying the left lower lobe. 4. Several lung nodules measuring up to 4 mm in the right lung, stable compared with the 06/04/2024. 5. Small perihepatic ascites. 6. Gallbladder wall appears thickened and edematous and contains dense material, possibly sludge and cholelithiasis. Recommend CT abdomen and pelvis and/or right upper quadrant ultrasound for further evaluation. 7. Age-indeterminate compression deformity of the L2 vertebral body, new since prior exam on 06/04/2024. - Repeat chest x-ray 06/29/2025 at 11 AM shows no reaccumulation of left pneumothorax - Currently chest tube is to waterseal -No leak detected Plan -Pulmonary consult - Chest tube to waterseal - Keep to waterseal for next 4 hours - If any sudden onset worsening respiratory failure, hypotension, desaturations chest tube to be placed back to suction - Daily chest x-rays - Monitor clinical status closely Acute on chronic anemia - Hemoglobin 8.4 - Required 2 units PRBC - Will monitor hemoglobin closely - Transfuse if hemoglobin less than 8 - Will hold off on anticoagulant therapy for atrial fibrillation, DVT prophylaxis due to persistent anemia NSTEMI - Patient had nonspecific ST-T wave changes yesterday at about 6 PM - Spoke to cardiology, no acute ST or T wave changes, recommended medical management - Cardiology consulted - Cardiac echo CONCLUSIONS Technically limited quality echocardiogram because of poor ultrasonic windows. Grossly LV systolic function is borderline low. RV appears to be mildly hypokinetic. Biatrial enlargement. Mild mitral regurgitation. Moderate to severe tricuspid regurgitation. Moderate pulmonary hypertension. IVC appears to be dilated. Plan - Aspirin, statin - Anticoagulant therapy held as above Septic shock - Secondary to pneumonia - Currently on Levophed at 4 Left hip fracture XR/XR hip LT 2-3V wo/w pel* [id number] IMPRESSION: Subcapital fracture of the proximal left femur. Plan - Status post surgical intervention - Morphine for pain control - Orthopedic consulted Acute kidney injury - IV fluids has been discontinued - Creatinine 2.2, monitor Diastolic CHF elevated BNP - Elevated BNP - Hold diuresis Type 2 diabetes mellitus, moderate dose sliding scale Atrial fibrillation with rapid ventricular response - Amiodarone drip - Metoprolol hold History of dementia History of multiple sclerosis Full code, confirmed with patient, family at bedside SCDs for DVT prophylaxis, anticoagulation currently on hold as patient has postoperative anemia Protonix for GI prophylaxis PDMP PDMP Reviewed: Not Reviewed Attestations 2 Medical Necessity Statement*: Patient requires hospital history of acute hypoxic respiratory failure, pneumonia, septic shock, left pneumothorax, Coding Level of Care Code Critical Care >/= 30 minutes Critical care time (in minutes): 45 The high probability of a clinically significant, sudden or life threatening deterioration, as referenced in this documentation, required my full and direct attention, intervention and personal management. The critical care time shown is in addition to time spent performing any reported separately billable procedures and includes the following: [x] Data and vital sign review and interpretation [x ] Patient assessment, examination and intervention [x] Medication orders and management [x] Patient/Family updates as able [x] Care Coordination and Documentation. Diagnoses Type 2 diabetes mellitus E11.9 CKD (chronic kidney disease) stage 3, GFR 30-59 ml/min N18.30 Chronic anemia D64.9 Acute kidney injury N17.9 Closed left hip fracture S72.002A Atrial fibrillation with rapid ventricular response I48.91 Closed hip fracture S72.009A Acute respiratory failure with hypoxia and hypercapnia J96.01; J96.02 Pneumothorax with hemothorax, traumatic S27.2XXA Chronic respiratory failure with hypoxia and hypercapnia J96.11; J96.12 COPD (chronic obstructive pulmonary disease) J44.9 Septic shock A41.9; R65.21 Primary hypertension I10 Hypertension type: primary hypertension Mixed hyperlipidemia E78.2 Hyperlipidemia type: mixed hyperlipidemia Nicotine abuse Z72.0 Chronic anticoagulation Z79.01
[2025-10-08] MEDS: dexmedeTOMIDine 0.9 % NaCL 400 MCG/100 ML PREMIX 6.63 MCG IV (14:07)
--- NOTE | 2025-10-08 16:40 | P.PN_ITS ---
Subjective 2 Subjective: Patient in ICU intubated and sedated. Discussed with nurse patient is tolerating chest tube to waterseal. Plans to extubate possibly tomorrow Vitals/I&O/Wt Last Vital Signs Temp 97.5 F L 10/08/25 14:00 Pulse 76 10/08/25 15:00 Resp 14 10/08/25 15:00 BP 145/73 10/08/25 14:30 Pulse Ox 100 10/08/25 15:00 O2 Del Method Mechanical Ventilation 10/08/25 15:00 O2 Flow Rate 3 10/07/25 11:32 FiO2 40 10/08/25 15:00 10/08/25 10/08/25 10/08/25 06:59 14:59 22:59 Intake Total 254.832 / 2642.758 301.807 / 301.807 Output Total 750 / 1100 Balance -495.168 / 1542.758 301.807 / 301.807 Weight last 48 hrs Weight 134 lb 7.712 oz Physical Exam 2 Narrative: Dressing clean dry and intact Urinary Catheter Management: Jefferson: Cath Placed During This Visit: yes Reason for Continuing Indwelling Catheter: Accurate Measurement of Urinary Output in Critically Ill Patients Urinary Catheter Date of Insertion: 10/06/25 Urinary Catheter Time of Insertion: 17:50 Data 10/08/25 09:57 10/08/25 05:52 Micro: Microbiology 10/07/25 15:45 Gram Stain - Final Sputum - Endotracheal Tube Aspirate Sputum Culture - Preliminary 10/07/25 18:42 Blood Culture - Preliminary Blood SPECIMEN COLLECTED 10/07/25 18:46 Blood Culture - Preliminary Blood SPECIMEN COLLECTED A&P Assessment and plan 1. Closed hip fracture: Postop day 1 left hip hemiarthroplasty Patient in ICU Hopefully extubate tomorrow PDMP PDMP Reviewed: Not Reviewed Attestations 2 Medical Necessity Statement*: Per primary service Coding Level of Care Code Acute Code for [facility] Fwd Diagnoses Closed hip fracture S72.009A
[2025-10-08 18:08] LABS: Hematocrit 25.9 % (36-47); Hemoglobin 7.80 g/dL (11.27-16.99); Mean Corpuscular HGB Conc 30.1 g/dL (30-55); Mean Corpuscular Hemoglobin 27.0 pg (27-33); Mean Corpuscular Volume 89.6 fl (85-98); Nucleated Red Blood Cells % 0 %; Platelet Count 233 10^3/cmm (157-399); Red Blood Count 2.89 10^6/uL (3.85-5.65); White Blood Count 15.55 10^3/uL (3.29-11.43)
[2025-10-08 18:51] LABS: Alanine Aminotransferase 22 U/L (0-33); Albumin Level 3.2 g/dL (3.5-5.2); Alkaline Phosphatase 60 U/L (35-105); Anion Gap 17.1 (5-19); Aspartate Amino Transferase 37 U/L (0-32); Blood Urea Nitrogen 36 mg/dL (8-23); Calcium 8.1 mg/dL (8.5-10.5); Carbon Dioxide 26 mmol/L (22-29); Chloride 101 mmol/L (98-107); Globulin 2.6 g/dL (1.3-4.6); Glucose 200 mg/dL (65-115); Osmolality Calculated 304 mOsm/kg (285-295); Potassium 4.1 mmol/L (3.5-5.1); Sodium 140 mmol/L (136-145); Total Protein 5.8 g/dL (6.6-8.7)
--- NOTE | 2025-10-08 18:55 | PC.NURSE ---
Notified Dr. Roman of current H&H. Order given to transfuse 1 unit PRBC.
[2025-10-08] MEDS: pantoprazole 40 mg SDV IVP (20:44)
[2025-10-09] VITALS (55 sets, daily range): BP systolic 76–194; BP diastolic 54–137; PULSE 96–145; RESP 14–19; TEMP 37.3–37.7; O2SAT 79–100
--- NOTE | 2025-10-09 | PC.NURSE ---
Afib RVR Patient's heart rate increased in the 130-140s, getting as high as 160. EKG completed showing afib RVR. Dr. Henderson notified; order received for 5 mg metoprolol IVP once one.
[2025-10-09] MEDS: fentaNYL 1,000 MCG/100 ML BAG 15 MCG IV (00:20)
[2025-10-09] MEDS: metoprolol tartrate 1 mg/1 mL SDV 5 mL 5 MG IVP (00:21)
[2025-10-09] MEDS: aztreonam 1,000 MG in sodium chloride 0.9% (plus) 50 ML 100 MG IV ×2 (00:29→12:42)
[2025-10-09 01:22] LABS: Hematocrit 30.0 % (36-47); Hemoglobin 9.40 g/dL (11.27-16.99); Mean Corpuscular HGB Conc 31.3 g/dL (30-55); Mean Corpuscular Hemoglobin 27.2 pg (27-33); Mean Corpuscular Volume 86.7 fl (85-98); Nucleated Red Blood Cells % 0 %; Platelet Count 230 10^3/cmm (157-399); Red Blood Count 3.46 10^6/uL (3.85-5.65); White Blood Count 17.98 10^3/uL (3.29-11.43)
[2025-10-09] MEDS: propofol 1,000 MG/100 ML INJ 6.37 MG IV (01:44)
[2025-10-09] MEDS: dexmedeTOMIDine 0.9 % NaCL 400 MCG/100 ML PREMIX 7.96 MCG IV (01:45)
--- NOTE | 2025-10-09 03:33 | PC.NURSE ---
Cardizem Patient's HR intermittently increasing into the 130-140s then decreasing again into the low 100s. Dr. Henderson notified; order received for 5 mg cardizem IVP once.
[2025-10-09] MEDS: dilTIAZem 5 mg/mL SDV 5 mL IVP (03:38)
[2025-10-09] MEDS: methylPREDNISolone sod succ 40 mg/mL INJ IVP ×3 (03:38→20:47)
[2025-10-09 04:07] LABS: ABG PCO2 45.5 mmHg (35-45); ABG PH Result 7.36 (7.35-7.45); Arterial Blood Gas Hematocrit 31.8 % (37-47); Blood Gas Operator Identificat SAM; Blood Gas Sample Site Brachial, right; Blood Gas Sample Type Arterial; Blood Gas Tidal Volume 0.40; HCO3 ABG 25.5 mmol/L (22-26); PEEP 5.0 cmH20; PO2 ABG 105.0 mmHg (80.0-100.0); PO2 FiO2 Ratio Arterial Blood 262
[2025-10-09] MEDS: AMIODARONE HCL/D5W 900 MG/500 ML BAG 16.67 MG IV (04:30)
[2025-10-09 05:20] LABS: Hematocrit 30.5 % (36-47); Hemoglobin 9.50 g/dL (11.27-16.99); Mean Corpuscular HGB Conc 31.1 g/dL (30-55); Mean Corpuscular Hemoglobin 27.4 pg (27-33); Mean Corpuscular Volume 87.9 fl (85-98); Nucleated Red Blood Cells % 0 %; Platelet Count 231 10^3/cmm (157-399); Red Blood Count 3.47 10^6/uL (3.85-5.65); White Blood Count 19.08 10^3/uL (3.29-11.43)
[2025-10-09 05:35] LABS: INR 0.98 (0.8-1.2); Prothrombin Time 13.70 SECONDS (12.1-14.9)
--- NOTE | 2025-10-09 05:45 | PC.NURSE ---
Bruise Upon lowering patient's bed, pole attached to head of bed became dislodged. IV pole witnessed to land on head of bed mattress. Upon inspection of patient, small bruise noted on forehead. No neurological changes noted. Dr. Henderson notified; order received to monitor for increases in bruise size or neurological changes. Bruise size 2.4 cm long, 2 cm wide. Daughter, Theresa, notified; all questions answered.
[2025-10-09 05:47] LABS: Lactate (Lactic Acid level) 1.2 mmol/L (0.5-2.2)
--- NOTE | 2025-10-09 05:52 | PC.NURSE ---
HR Patient's HR intermittently still increasing into the 130-140s. Dr. Henderson notified; order received for 10 mg metoprolol IVP once.
[2025-10-09 05:55] LABS: Alanine Aminotransferase 24 U/L (0-33); Albumin Level 3.3 g/dL (3.5-5.2); Alkaline Phosphatase 59 U/L (35-105); Anion Gap 19.3 (5-19); Aspartate Amino Transferase 39 U/L (0-32); Blood Urea Nitrogen 37 mg/dL (8-23); Calcium 8.4 mg/dL (8.5-10.5); Carbon Dioxide 24 mmol/L (22-29); Chloride 98 mmol/L (98-107); Globulin 2.1 g/dL (1.3-4.6); Glucose 230 mg/dL (65-115); NT Pro B Type Natriuretic Pept 3542 pg/mL (0-450); Osmolality Calculated 300 mOsm/kg (285-295); Potassium 4.3 mmol/L (3.5-5.1); Sodium 137 mmol/L (136-145); Total Protein 5.4 g/dL (6.6-8.7)
[2025-10-09 05:56] LABS: Procalcitonin 1.48 ng/mL (0-0.5)
--- NOTE | 2025-10-09 06:00 | XRR_ITS ---
PROCEDURE INFORMATION: Exam: XR Chest Exam date and time: 10/09/2025 5:52 AM Age: 79 years old Clinical indication: Shortness of breath; Prior surgery; Surgery date: 3-7 days post-operative; Surgery type: Chest tube; Additional info: SOB TECHNIQUE: Imaging protocol: Radiologic exam of the chest. Views: 1 view. COMPARISON: CR XR chest 1V portable [id number] 10/08/2025 11:24 AM FINDINGS: Tubes, catheters and devices: Stable left thoracostomy tube. Lungs: Emphysematous COPD with interstitial fibrosis. Pleural spaces: No pneumothorax observed. Heart/Mediastinum: Unremarkable. No cardiomegaly. Bones/joints: Unremarkable. Other findings: Stable life-support lines. XR/XR chest 1V portable [id number] IMPRESSION: No significant change.
[2025-10-09 06:07] LABS: Magnesium 2.1 mg/dL (1.7-2.3)
[2025-10-09] MEDS: metoprolol tartrate 1 mg/1 mL SDV 5 mL 10 MG IVP (06:11)
--- NOTE | 2025-10-09 08:27 | PC.NURSE ---
PO medications Orders received from Dr. Henderson to hold PO aspirin and lexapro this AM due to patient's bruising on forehead as well as administration of sedation.
--- NOTE | 2025-10-09 08:45 | PC.NURSE ---
Chest tube clamped per verbal order from Dr Corodba.
[2025-10-09] MEDS: morphine 4 mg/mL SDV 1 mL 2 MG IVP (08:59)
[2025-10-09] MEDS: vancomycin 500 MG in sodium chloride 0.9% (plus) 100 ML 200 MG IV (09:00)
--- NOTE | 2025-10-09 09:13 | P.PN_ITS ---
<Statement entered by Brian Kwon M.D - 10/11/25 13:35> Patient was cared for in conjunction with an advanced practice practitioner.? I reviewed the chart and all pertinent data including imaging, telemetry, and laboratory results.? I discussed the patient in detail with the advanced practice practitioner.? Please see? their documentation for progress note, testing results and agreed upon plan of care for the patient. Subjective 2 Subjective: Heart rate rapid since 2300. Appears to be atrial fibrillation, rate currently around 105 bpm. She remains intubated, alert and nodding to my conversation with her. Vitals/I&O/Wt Last Vital Signs Temp 99.3 F 10/09/25 06:29 Pulse 120 H 10/09/25 08:09 Resp 14 10/09/25 08:59 BP 145/83 10/09/25 06:45 Pulse Ox 98 10/09/25 08:59 O2 Del Method Mechanical Ventilation 10/09/25 08:09 O2 Flow Rate 3 10/07/25 11:32 FiO2 40 10/09/25 08:13 10/08/25 10/09/25 10/09/25 22:59 06:59 14:59 Intake Total 627.625 / 1762.462 833.030 / 1762.462 Output Total 525 / 525 Balance 627.625 / 1237.462 308.030 / 1237.462 Weight last 48 hrs Weight 125 lb 10.616 oz Weight 134 lb 7.712 oz Physical Exam 2 Narrative: intubated but alert, moving hands and feet and nodding to questions. Resp: AUSCULTATION: rales (coarse) Cardio: RATE: tachycardic RHYTHM: abnormal rhythm irregularly irregular Extremity: GENERAL: No edema Urinary Catheter Management: Jefferson: Cath Placed During This Visit: yes Reason for Continuing Indwelling Catheter: Accurate Measurement of Urinary Output in Critically Ill Patients Urinary Catheter Date of Insertion: 10/06/25 Urinary Catheter Time of Insertion: 17:50 Data 10/09/25 04:15 10/09/25 04:15 Micro: Microbiology 10/07/25 18:42 Blood Culture - Preliminary Blood NEGATIVE TO DATE 10/07/25 18:46 Blood Culture - Preliminary Blood NEGATIVE TO DATE 10/07/25 15:45 Gram Stain - Final Sputum - Endotracheal Tube Aspirate Sputum Culture - Preliminary A&P Assessment and plan 1. Atrial fibrillation with rapid ventricular response: 2. CHF (congestive heart failure): 3. Hypertension: 4. Type 2 diabetes mellitus: 5. CKD (chronic kidney disease) stage 3, GFR 30-59 ml/min: 6. Chronic anemia: 7. Septic shock: 8. Closed left hip fracture: 9. COPD (chronic obstructive pulmonary disease): 10. Pneumothorax with hemothorax, traumatic: Plan: Procalcitonin increased, febrile at 99.3 degrees F rectal. Continue amiodarone infusion at 0.5mg/min. Not requiring vasopressor currently. PDMP PDMP Reviewed: Not Reviewed Attestations 2 Medical Necessity Statement*: intubated, a fib rvr Coding Level of Care Code Acute Code for g Fwd Diagnoses Atrial fibrillation with rapid ventricular response I48.91 CHF (congestive heart failure) I50.9 Hypertension I10 Type 2 diabetes mellitus E11.9 CKD (chronic kidney disease) stage 3, GFR 30-59 ml/min N18.30 Chronic anemia D64.9 Septic shock A41.9; R65.21 Closed left hip fracture S72.002A COPD (chronic obstructive pulmonary disease) J44.9 Pneumothorax with hemothorax, traumatic S27.2XXA
[2025-10-09] MEDS: fentaNYL 1,000 MCG/100 ML BAG 7.5 MCG IV (09:26)
--- NOTE | 2025-10-09 10:11 | P.PN_ITS ---
Subjective 2 Subjective: Intubated, waking up. Has been bothered by pain in her left hip. Sometimes gets startled when she is waking up. Possible degree of confusion noted by her daughters. Vitals/I&O/Wt Last Vital Signs Temp 99.3 F 10/09/25 06:29 Pulse 120 H 10/09/25 08:09 Resp 14 10/09/25 08:59 BP 145/83 10/09/25 06:45 Pulse Ox 98 10/09/25 08:59 O2 Del Method Mechanical Ventilation 10/09/25 08:09 O2 Flow Rate 3 10/07/25 11:32 FiO2 40 10/09/25 08:13 10/08/25 10/09/25 10/09/25 22:59 06:59 14:59 Intake Total 627.625 / 929.432 833.030 / 1762.462 14.959 / 14.959 Output Total 525 / 525 Balance 627.625 / 929.432 308.030 / 1237.462 14.959 / 14.959 Weight last 48 hrs Weight 57 kg Weight 61 kg Physical Exam 2 Narrative: Accompanied by her daughters at the bedside. Const: ORIENTATION/CONSCIOUSNESS: Yes awake HENMT: COMMON NORMALS: oropharynx normal OTHER: ETT Neck/C-Spine: COMMON NORMALS: no JVD OTHER: Right IJ Chest: OTHER: Left CT, no air leak Resp: COMMON NORMALS: normal respiratory effort and clear to auscultation bilaterally AUSCULTATION: clear to auscultation bilaterally Cardio: COMMON NORMALS: no JVD, S1 normal heart sound present, S2 normal heart sound present and No murmurs present (Cardio) RATE: tachycardic RHYTHM: a bnormal rhythm irregularly irregular HEART SOUNDS: S1 normal heart sound present and S2 normal heart sound present GI: COMMON NORMALS: Normal to inspection, nondistended, normoactive bowel sounds present, Soft to palpation and non-tender PALPATION: Yes Soft to palpation Extremity: COMMON NORMALS: no joint enlargement and no pedal edema Neuro: COMMON NORMALS: moves all extremities Skin: COMMON NORMALS: no rashes or lesions noted GENERAL SKIN EXAM: no rashes or lesions noted Urinary Catheter Management: Jefferson: Cath Placed During This Visit: yes Reason for Continuing Indwelling Catheter: Accurate Measurement of Urinary Output in Critically Ill Patients Urinary Catheter Date of Insertion: 10/06/25 Urinary Catheter Time of Insertion: 17:50 Data 10/09/25 04:15 10/09/25 04:15 Micro: Microbiology 10/07/25 18:36 Urine Culture - Final Urine Catheterized 10/07/25 18:42 Blood Culture - Preliminary Blood NEGATIVE TO DATE 10/07/25 18:46 Blood Culture - Preliminary Blood NEGATIVE TO DATE 10/07/25 15:45 Gram Stain - Final Sputum - Endotracheal Tube Aspirate Sputum Culture - Preliminary A&P Assessment and plan 1. Type 2 diabetes mellitus without complication, with long-term current use of insulin: 2. CKD (chronic kidney disease) stage 3, GFR 30-59 ml/min: 3. Chronic anemia: 4. Acute kidney injury: 5. Closed left hip fracture: 6. Atrial fibrillation with rapid ventricular response: 7. Closed hip fracture: 8. Acute respiratory failure with hypoxia and hypercapnia: 9. Pneumothorax with hemothorax, traumatic: 10. Chronic respiratory failure with hypoxia and hypercapnia: 11. COPD (chronic obstructive pulmonary disease): 12. Septic shock: 13. Primary hypertension: 14. Mixed hyperlipidemia: 15. Nicotine abuse: 16. Chronic anticoagulation: Plan: Acute hypoxic hypercarbic respiratory failure: Reviewed vitals, ventilator settings, ABG. Reviewed Pleur-evac. Chest x-ray. - With underlying COPD, chronic respiratory failure with hypoxia and hypercapnia on home trilogy vent. Severe emphysema with large blebs. -With history of systolic and diastolic CHF - With left sided pneumothorax status post chest tube placement. So far no airleak. Pneumothorax so far has resolved. - Concern for pneumonia Elevated risk with extubation with all of the above. Discussed with family. Discussed risk of need for reintubation. technical specialist cytology reassessing, wanting to be sure that she will be optimized for extubation and removal of chest tube. Does have A-fib with RVR today, responded well to push of digoxin 0.25 mg. However, with return of tachycardia which appears to be also triggered by some anxiety possibly with degree of confusion with acute encephalopathy/delirium, possibly related to acute delirium, possibly pain, as well as medications and sedation. Possible infection. Possibly IV corticosteroids. With weaning sedation she does follow commands, gets startled occasionally. Daughters report anxiety is an issue she deals with at baseline as well and may be a continued factor even after extubation. Anxiolytic, possibly Precedex drip for continuation may need to be considered while weaning off vent support, chest tube, etc. Plan -Currently intubated, sedated on mechanical ventilation Continue weaning ventilatory support, sedation. Continue to optimize A-fib with RVR. Repeat dig 0.125. Consider additional digoxin but with caution given CKD. Check digoxin level in the morning. Continue Amio drip. Blood pressures with fluctuation, but consider resumption of metoprolol in case blood pressure levels off without further drops. - Fentanyl for pain - Precedex. Propofol this continued with soft blood pressures - Monitor respiratory status closely - Vancomycin - Aztreonam - Sputum culture reviewed. Discussed risk of VAP. Moderate normal errol on culture. - Blood culture reviewed, so far negative - Solu-Medrol 40 mg IV every 8 hours - DuoNeb - Budesonide - Lasix if developing fluid overload Left-sided pneumothorax - Seen on chest x-ray 09/1925 at 1546, postoperatively - Status post chest tube placement by Dr. Blanco CT chest CT/CT chest wo con [id number] IMPRESSION: 1. Slightly decreased in size of left anterobasilar pneumothorax compared with prior chest x-ray. 2. Small loculated right pleural effusion. 3. Extensive emphysematous changes, with large bulla occupying the left lower lobe. 4. Several lung nodules measuring up to 4 mm in the right lung, stable compared with the 06/04/2024. 5. Small perihepatic ascites. 6. Gallbladder wall appears thickened and edematous and contains dense material, possibly sludge and cholelithiasis. Recommend CT abdomen and pelvis and/or right upper quadrant ultrasound for further evaluation. 7. Age-indeterminate compression deformity of the L2 vertebral body, new since prior exam on 06/04/2024. - Repeat chest x-ray 06/29/2025 at 11 AM shows no reaccumulation of left pneumothorax - Currently chest tube is to waterseal -No leak detected Plan Chest tube clamped and chest x-ray reassess. So far maintaining lung inflation without recurrent pneumothorax. Pending pulmonary assessment and optimization of above factors with weaning of sedation, heart rate control. - If any sudden onset worsening respiratory failure, hypotension, desaturations chest tube to be placed back to suction - Daily chest x-rays - Monitor clinical status closely A-fib with RVR: Continue amiodarone infusion. Additional digoxin. Caution due to CKD. Monitor blood pressures, if maintaining without further dips consider resumption of some of her home metoprolol. Off anticoagulation due to anemia. Forehead hematoma: About 2 x 3 cm. After IV pole injury. Monitor. Acute on chronic anemia - Hemoglobin 9.5 - s/p 2 units PRBC - Repeat blood counts in the morning. - Transfuse if hemoglobin less than 8 - Will hold off on anticoagulant therapy for atrial fibrillation, DVT prophylaxis due to persistent anemia NSTEMI - Patient had nonspecific ST-T wave changes yesterday at about 6 PM - Spoke to cardiology, no acute ST or T wave changes, recommended medical management - Cardiology consulted. Note reviewed. - Cardiac echo reviewed CONCLUSIONS Technically limited quality echocardiogram because of poor ultrasonic windows. Grossly LV systolic function is borderline low. RV appears to be mildly hypokinetic. Biatrial enlargement. Mild mitral regurgitation. Moderate to severe tricuspid regurgitation. Moderate pulmonary hypertension. IVC appears to be dilated. Plan - Aspirin, statin - Anticoagulant therapy held as above Septic shock: Resolved. Off Levophed. Monitor blood pressures. Antihypertensives/metoprolol held - Secondary to pneumonia Left hip fracture XR/XR hip LT 2-3V wo/w pel* [id number] IMPRESSION: Subcapital fracture of the proximal left femur. Plan - Status post surgical intervention - Morphine for pain control. Caution with pain medications with encephalopathy, fluctuating blood pressure. Lidocaine patch. - Orthopedic note reviewed Acute kidney injury: Creatinine steady 2.2. Monitor CAROL. Reassess chemistry. Diastolic CHF elevated BNP. Monitor for signs of fluid overload which may necessitate resumption of some diuresis. Type 2 diabetes mellitus, moderate dose sliding scale. Monitor blood glucose History of dementia History of multiple sclerosis Full code SCDs for DVT prophylaxis, anticoagulation currently on hold as patient has postoperative anemia Protonix for GI prophylaxis PDMP PDMP Reviewed: Not Reviewed Attestations 2 Medical Necessity Statement*: Continue admission for continued optimization and reassessment of resolution of pneumothorax and maintenance of inflation of the lung, weaning of mechanical ventilation support with underlying COPD with severe for Zima and large blebs, optimization of control of A-fib with RVR, after recent shock, with anemia, acute encephalopathy, KYLE, underlying diastolic CHF, diabetes and additional comorbidities as above. Coding Level of Care Code Critical Care >/= 30 minutes Critical care time (in minutes): 40 The high probability of a clinically significant, sudden or life threatening deterioration, as referenced in this documentation, required my full and direct attention, intervention and personal management. The critical care time shown is in addition to time spent performing any reported separately billable procedures and includes the following: [x] Data and vital sign review and interpretation [x ] Patient assessment, examination and intervention [x] Medication orders and management [x] Patient/Family updates as able [x] Care Coordination and Documentation. 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 insulin use: with chcf use CKD (chronic kidney disease) stage 3, GFR 30-59 ml/min N18.30 Chronic anemia D64.9 Acute kidney injury N17.9 Closed left hip fracture S72.002A Atrial fibrillation with rapid ventricular response I48.91 Closed hip fracture S72.009A Acute respiratory failure with hypoxia and hypercapnia J96.01; J96.02 Pneumothorax with hemothorax, traumatic S27.2XXA Chronic respiratory failure with hypoxia and hypercapnia J96.11; J96.12 COPD (chronic obstructive pulmonary disease) J44.1 COPD type: COPD with acute exacerbation Septic shock A41.9; R65.21 Primary hypertension I10 Hypertension type: primary hypertension Mixed hyperlipidemia E78.2 Hyperlipidemia type: mixed hyperlipidemia Nicotine abuse Z72.0 Chronic anticoagulation Z79.01
--- NOTE | 2025-10-09 10:39 | P.PN_ITS ---
Subjective 2 Subjective: Patient remains intubated in the ICU. Daughters are at the bedside Vitals/I&O/Wt Last Vital Signs Temp 99.3 F 10/09/25 06:29 Pulse 120 H 10/09/25 08:09 Resp 14 10/09/25 08:59 BP 145/83 10/09/25 06:45 Pulse Ox 98 10/09/25 08:59 O2 Del Method Mechanical Ventilation 10/09/25 08:09 O2 Flow Rate 3 10/07/25 11:32 FiO2 40 10/09/25 08:13 10/08/25 10/09/25 10/09/25 22:59 06:59 14:59 Intake Total 627.625 / 929.432 833.030 / 1762.462 14.959 / 14.959 Output Total 525 / 525 Balance 627.625 / 929.432 308.030 / 1237.462 14.959 / 14.959 Weight last 48 hrs Weight 125 lb 10.616 oz Weight 134 lb 7.712 oz Physical Exam 2 Narrative: Wound clean dry intact Urinary Catheter Management: Jefferson: Cath Placed During This Visit: yes Reason for Continuing Indwelling Catheter: Accurate Measurement of Urinary Output in Critically Ill Patients Urinary Catheter Date of Insertion: 10/06/25 Urinary Catheter Time of Insertion: 17:50 Data 10/09/25 04:15 10/09/25 04:15 Micro: Microbiology 10/07/25 18:36 Urine Culture - Final Urine Catheterized 10/07/25 18:42 Blood Culture - Preliminary Blood NEGATIVE TO DATE 10/07/25 18:46 Blood Culture - Preliminary Blood NEGATIVE TO DATE 10/07/25 15:45 Gram Stain - Final Sputum - Endotracheal Tube Aspirate Sputum Culture - Preliminary A&P Assessment and plan 1. Closed hip fracture: Status post left hip hemiarthroplasty PDMP PDMP Reviewed: Not Reviewed Attestations 2 Medical Necessity Statement*: Per primary service Coding Level of Care Code Acute Code for Chg Fwd Diagnoses Closed hip fracture S72.009A
--- NOTE | 2025-10-09 11:00 | XR_ITS ---
WS: [id number] XR chest 1V portable [id number] REASON FOR EXAM: sob FINDINGS: The chest is unchanged compared to the examination of 5:56 a.m. 2024. No left pneumothorax. No significant subcutaneous emphysema. Endotracheal tube and nasogastric tube and right internal jugular central venous line remain in position. Left chest tube remains in position. Severe basilar paraseptal emphysema which large bullous formation in the left lung base. XR/XR chest 1V portable [id number] IMPRESSION: Stable abnormal chest as above.
[2025-10-09] MEDS: digoxin 250 mcg/ml INJ 2 mL IVP (11:29)
[2025-10-09] MEDS: dexmedeTOMIDine 0.9 % NaCL 400 MCG/100 ML PREMIX 9.29 MCG IV (12:25)
[2025-10-09] MEDS: oxyCODONE 5 mg IR Tab/Cap PO ×2 (12:41→20:47)
--- NOTE | 2025-10-09 14:23 | PC.OT ---
OT EVALUATION HELD AGAIN TODAY DUE TO PATIENT INTUBATION.
[2025-10-09] MEDS: digoxin 250 mcg/ml INJ 2 mL 125 MCG IVP (16:55)
--- NOTE | 2025-10-09 18:35 | PC.NURSE ---
Chest tube unclamped per telephone order from Dr Cordoba.
--- NOTE | 2025-10-09 19:43 | P.PN_ITS ---
Subjective 2 Subjective: Deidra De La Torre is a 79 year old female with past medical history of multiple sclerosis, atrial fibrillation, on anticoagulation therapy, history of congestive heart failure, history of seizure, history of dementia comes into the hospital complaining of left hip pain initially on 10/06/2025. Was also found to be in A-fib with RVR and placed on amnio drip. Taken to surgery for hip fracture repair, started having difficulty bagging and ventilating. Chest x-ray in ICU taken showed large left-sided pneumothorax. Plan to pressures at 32 on the ventilator. Has a 7.0 tube was a difficult airway per report. Was having difficulty oxygenating and ventilating postoperatively. In 10/08/2025 On ventilator tolerating well Precedex at 0.2 amiodarone 0.5 levo at 4 10/09/25 On vent tolerating well. on precedex and fentanyl gtts at 75. in 40% fio2 on vent. Review of systems unobtainable patient is on the vent Vitals/I&O/Wt Last Vital Signs Temp 99.7 F H 10/09/25 18:00 Pulse 125 H 10/09/25 18:00 Resp 14 10/09/25 18:00 BP 140/77 10/09/25 18:00 Pulse Ox 100 10/09/25 18:00 O2 Del Method Mechanical Ventilation 10/09/25 18:00 O2 Flow Rate 3 10/07/25 11:32 FiO2 40 10/09/25 18:00 10/09/25 10/09/25 10/09/25 06:59 14:59 22:59 Intake Total 833.030 / 1762.462 216.073 / 216.073 Output Total 525 / 525 Balance 308.030 / 1237.462 216.073 / 216.073 Weight last 48 hrs Weight 125 lb 10.616 oz Weight 134 lb 7.712 oz Physical Exam 2 Narrative: Per RN General: Intubated sedated Pulmonary: Diminished breath sounds bilaterally Cardiovascular: rrr, nl s1s2, Abdomen: soft, nt, nd, no r/g, Extremities: no edema Neurologic: grossly intact Agree with above exam Urinary Catheter Management: Jefferson: Cath Placed During This Visit: yes Reason for Continuing Indwelling Catheter: Accurate Measurement of Urinary Output in Critically Ill Patients Urinary Catheter Date of Insertion: 11/18/25 Urinary Catheter Time of Insertion: 17:50 Data 10/09/25 04:15 10/09/25 04:15 Micro: Microbiology 10/07/25 15:45 Gram Stain - Final Sputum - Endotracheal Tube Aspirate Sputum Culture - Final 10/07/25 18:36 Urine Culture - Final Urine Catheterized 10/07/25 18:42 Blood Culture - Preliminary Blood NEGATIVE TO DATE 10/07/25 18:46 Blood Culture - Preliminary Blood NEGATIVE TO DATE A&P Assessment and plan 1. Pneumothorax with hemothorax, traumatic: 2. COPD (chronic obstructive pulmonary disease): Plan: # Acute hypoxic hypercarbic hypoxic and hypercapnic -Continue ventilator support. -Reviewed ABG 10/09/2025 showing pH of 7.36/pCO2 45/pO2 262 PF Bronchopulmonary etiology therapy Currently ABG pH 7.24, pCO2 55, pO2 302 on vent VC-AC tidal volume 400, rate 12, peak inspiratory pressure 20 Plateau 25, PEEP increased from 5 and 40% FiO2. Keep O2 sats between 88 to 92%. # critical airway - Will start cuff leak checks from tomorrow and if okay after an sbt plan to extubate in Am # Left-sided pneumothorax Reviewed chest x-ray from this morning and compared to last night 10/08/2025- independently interpreted images. Has a large left-sided lower lobe bleb as confirmed on CT chest from 10/07/2025. Pigtail catheter working well. Switch to waterseal reimaged on chest x-ray no pneumo seen Clamped chest tube today and reviewed a CXR after 4 hours- no reaccumulation of ptx seen. Unclamped the tube again and will leave it to water seal till after she is extubated. Instructed nurse 10/09/25 # Closed left femur hip fracture status post left hemiarthroplasty 10/07/2025 Per Ortho appreciate help # A-fib with RVR Continue close monitoring on Amio drip at 0.5 Digoxin given # KYLE on CKD stage III -Creatinine 2.3, baseline creatinine: 0.6-labs reviewed 10/08/2025. Avoid nephrotoxic agents # Type 2 diabetes insulin sliding scale medium. Avoid hypoglycemia. Maintain blood sugars between 140-180. Dextrose drip if needed to maintain blood sugars above 70 # End-stage COPD # Chronic respiratory failure hypoxic and hypercapnic previously on home Trilogy vent # Chronic congestive heart failure -As needed Lasix # Probable smoker -Observed for withdrawals mainly nicotine patch # Hyperglycemia- # Sedation-continue Versed and fentanyl pushes as needed for now. Precedex wean off as tolerated. Started OXYIR and Ativan TID per OGT # Nutrition-n.p.o. for now # DVT GI prophylaxis-SCDs and famotidine. Hold off on anticoagulation secondary to anemia which could be acute blood loss. # Goals of care-d per primary team. Discussed with family and updated at bedside # CODE STATUS- FULL # Disposition-Will need full ICU support follow-up The high probability of a clinically significant, sudden or life threatening deterioration of the patient's [Respiratory, cardiac and renal] system(s) required my full and direct attention, intervention and personal management. The critical care time is as shown. This time is in addition to time spent performing any reported procedures but includes the following: [x] Data and vital sign review and interpretation [x] Patient assessment, examination and intervention [x] Documentation [x] Medication orders and management Critical Care Time (min): 33 Telemedicine Consent Patient seen today via Telemedicine by agreement and consent of patient.? Telemedicine technology used during the visit includes audio and, as available, review of images.? The patient encounter is appropriate and reasonable under the circumstances given the patient?s particular presentation at this time.? The patient has been advised of the potential risks and limitations of this mode of treatment (including but not limited to the absence of in-person examination) and has agreed to be treated in a remote fashion in spite of them.? Any, and all, of the patient?s/patient?s family?s questions on this issue have been answered and I have made no promises or guarantees to the patient. PDMP PDMP Reviewed: Not Reviewed Attestations 2 Medical Necessity Statement*: on mechnical ventillation Coding Level of Care Code Critical Care >/= 30 minutes Diagnoses Pneumothorax with hemothorax, traumatic S27.2XXA COPD (chronic obstructive pulmonary disease) J44.9
[2025-10-09] MEDS: dexmedeTOMIDine 0.9 % NaCL 400 MCG/100 ML PREMIX 11.94 MCG IV (19:51)
[2025-10-09] MEDS: pantoprazole 40 mg SDV IVP (20:47)
[2025-10-09] MEDS: fentaNYL 1,000 MCG/100 ML BAG 10 MCG IV (23:34)
[2025-10-10] VITALS (49 sets, daily range): BP systolic 101–152; BP diastolic 46–122; PULSE 89–128; RESP 10–24; TEMP 36.8–37.5; O2SAT 80–100
[2025-10-10] MEDS: aztreonam 1,000 MG in sodium chloride 0.9% (plus) 50 ML 100 MG IV (01:32)
[2025-10-10] MEDS: dexmedeTOMIDine 0.9 % NaCL 400 MCG/100 ML PREMIX 14.59 MCG IV (01:56)
[2025-10-10] MEDS: methylPREDNISolone sod succ 40 mg/mL INJ IVP ×3 (03:05→20:39)
[2025-10-10 03:21] LABS: Hematocrit 30.3 % (36-47); Hemoglobin 9.30 g/dL (11.27-16.99); Mean Corpuscular HGB Conc 30.7 g/dL (30-55); Mean Corpuscular Hemoglobin 27.4 pg (27-33); Mean Corpuscular Volume 89.4 fl (85-98); Nucleated Red Blood Cells % 0 %; Platelet Count 234 10^3/cmm (157-399); Red Blood Count 3.39 10^6/uL (3.85-5.65); White Blood Count 17.03 10^3/uL (3.29-11.43)
[2025-10-10 03:42] LABS: INR 1.06 (0.8-1.2); Prothrombin Time 14.50 SECONDS (12.1-14.9)
[2025-10-10 03:46] LABS: Lactate (Lactic Acid level) 1.2 mmol/L (0.5-2.2)
[2025-10-10 03:53] LABS: Digoxin 1.9 ng/mL (0.6-1.2)
[2025-10-10 03:56] LABS: NT Pro B Type Natriuretic Pept 7733 pg/mL (0-450); Procalcitonin 1.24 ng/mL (0-0.5)
[2025-10-10 04:07] LABS: Alanine Aminotransferase 29 U/L (0-33); Albumin Level 3.3 g/dL (3.5-5.2); Alkaline Phosphatase 58 U/L (35-105); Anion Gap 19.9 (5-19); Aspartate Amino Transferase 63 U/L (0-32); Blood Urea Nitrogen 50 mg/dL (8-23); Calcium 8.6 mg/dL (8.5-10.5); Carbon Dioxide 22 mmol/L (22-29); Chloride 99 mmol/L (98-107); Globulin 2.2 g/dL (1.3-4.6); Glucose 209 mg/dL (65-115); Magnesium 2.1 mg/dL (1.7-2.3); Osmolality Calculated 301 mOsm/kg (285-295); Potassium 4.9 mmol/L (3.5-5.1); Sodium 136 mmol/L (136-145); Total Protein 5.5 g/dL (6.6-8.7)
[2025-10-10] MEDS: oxyCODONE 5 mg IR Tab/Cap PO ×3 (04:22→20:39)
[2025-10-10 05:07] LABS: ABG PCO2 43.1 mmHg (35-45); ABG PH Result 7.30 (7.35-7.45); Arterial Blood Gas Hematocrit 21.2 % (37-47); Blood Gas Allen Test Pos; Blood Gas Operator Identificat SAM; Blood Gas Sample Site Radial, right; Blood Gas Sample Type Arterial; Blood Gas Tidal Volume 0.40; HCO3 ABG 21.1 mmol/L (22-26); PEEP 5.0 cmH20; PO2 ABG 78.9 mmHg (80.0-100.0); PO2 FiO2 Ratio Arterial Blood 197
--- NOTE | 2025-10-10 08:56 | PM.PN ---
Subjective Subjective: Cardiology coverage The patient with pneumothorax, possible pneumonia and respiratory failure-developed following the hip surgery. Possible septic shock. History of chronic atrial fibrillation the patient remains intubated. She is on a low-dose of Precedex. Her blood pressure seems to be fairly in the normal range. The heart rate is in the 100 to 112 bpm. She is remaining afebrile. Medications: Medication Review Details: Current Medications Acetaminophen (Acetaminophen 325 Mg Tablet) 650 mg PO Q6H PRN PRN Reason: Mild/Mod Pain Or Temp >/= 101 Albuterol/Ipratropium (Ipratropium-Albuterol 3 Ml Neb) 3 ml INHALATION Q4H.RESPIRATORY MAKENZIE Last Admin: 10/10/25 07:50 Dose: 3 ml Alprazolam (Alprazolam 0.5 Mg Tablet) 0.25 mg PO TID PRN PRN Reason: ANXIETY Last Admin: 10/06/25 21:44 Dose: 0.25 mg Aspirin (Aspirin 81 Mg Chew Tablet) 81 mg NG-TUBE DAILY MAKENZIE Last Admin: 10/10/25 04:22 Dose: 81 mg Atorvastatin Calcium (Atorvastatin 40 Mg Tablet) 40 mg PO BEDTIME MAKENZIE Last Admin: 10/09/25 20:46 Dose: 40 mg Budesonide (Budesonide 0.5 Mg/2 Ml Neb) 0.5 mg INHALATION BID.RESPIRATORY MAKENZIE Last Admin: 10/10/25 07:50 Dose: 0.5 mg Chlorhexidine Gluconate (Chlorhexidine Gluconate 4% Btl 118 Ml) 1 applic TOPICAL Q24H PRN PRN Reason: bath Digoxin (Digoxin 250 Mcg/Ml Inj 2 Ml) 0.625 mcg IVP DAILY MAKENZIE Last Admin: 10/10/25 09:52 Dose: Not Given Escitalopram Oxalate (Escitalopram 10 Mg Tablet) 10 mg PO DAILY MAKENZIE Last Admin: 10/10/25 04:22 Dose: 10 mg Glucagon (Glucagon 1 Mg/Ml Kit 1 Ml) 1 mg IM ONCE PRN; Protocol PRN Reason: Adult Acute Hypoglycemia Nursing Prot. AMIODARONE HCL/D5W (Amiodarone 900 Mg/500 Ml-D5w) 900 mg in 500 mls @ 0 mls/hr IV .Q0M MAKENZIE; Protocol Last Admin: 10/09/25 04:30 Dose: 0.5 mg/min, 16.67 mls/hr Dextrose (D5w) 500 mls @ 0 mls/hr IV ONCE PRN; Protocol PRN Reason: Adult Acute Hypoglycemia Prot Dextrose (D10w) 125 mls @ 750 mls/hr IV PRN PRN; Protocol PRN Reason: Adult Acute Hypoglycemia Nursing Protocol Last Infusion: 10/09/25 20:22 Dose: Infused Dextrose (D10w) 250 mls @ 1,000 mls/hr IV PRN PRN; Protocol PRN Reason: Adult Acute Hypoglycemia Nursing Protocol Aztreonam 1,000 mg/ Sodium (Chloride) 50 mls @ 100 mls/hr IV Q12H MAKENZIE; Protocol Last Infusion: 10/10/25 02:06 Dose: Infused Propofol (Diprivan) 1,000 mg in 100 mls @ 0 mls/hr IV .Q0M MAKENZIE; Protocol Last Titration: 10/10/25 06:12 Dose: Infused Norepinephrine Bitartrate (Levophed) 4 mg in 250 mls @ 0 mls/hr IV .Q0M MAKENZIE; Protocol Last Titration: 10/10/25 06:12 Dose: Infused Dexmedetomidine/Sodium Chloride (Precedex) 400 mcg in 100 mls @ 0 mls/hr IV .Q0M MAKENZIE; Protocol Last Admin: 10/10/25 10:15 Dose: 0.9 mcg/kg/hr, 11.94 mls/hr Fentanyl (Sublimaze) 1,000 mcg in 100 mls @ 0 mls/hr IV .Q0M MAKENZIE; Protocol Last Titration: 10/10/25 07:37 Dose: 25 mcg/hr, 2.5 mls/hr Vancomycin HCl 500 mg/ Sodium (Chloride) 100 mls @ 200 mls/hr IV ONCE ONE Stop: 10/10/25 10:44 Insulin Human Lispro (Insulin Lispro 100 Unit/1 Ml) 0 unit SUBCUT TIDWM MAKENZIE; Protocol Last Admin: 10/10/25 07:48 Dose: 10 unit Lanolin (Lanolin Oint 7 Gm) 1 applic TOPICAL PRN PRN PRN Reason: DRY LIPS Last Admin: 10/10/25 09:23 Dose: 1 applic Lidocaine (Lidocaine 5% Patch) 1 patch TOPICAL [id number] MAKENZIE Last Admin: 10/10/25 03:05 Dose: Not Given Lorazepam (Lorazepam 0.5 Mg Tablet) 0.5 mg PO TID MAKENZIE Last Admin: 10/10/25 04:22 Dose: 0.5 mg Methylprednisolone Sodium Succinate (Methylprednisolone Sod Succ 40 Mg/Ml Inj) [address] [facility] Last Admin: 10/10/25 03:05 Dose: 40 mg Morphine Sulfate (Morphine 4 Mg/Ml Sdv 1 Ml) 2 mg IVP Q4H PRN PRN Reason: SEVERE PAIN Last Admin: 10/09/25 08:59 Dose: 2 mg Naloxone HCl (Naloxone 0.4 Mg/Ml Sdv) 0.1 mg IVP Q2M PRN PRN Reason: OPIATERV Ondansetron HCl (Ondansetron 2 Mg/Ml Sdv 2 Ml) 4 mg IVP Q8H PRN PRN Reason: vomiting, or N/V if npo Last Admin: 10/06/25 22:50 Dose: 4 mg Oxycodone HCl (Oxycodone 5 Mg Ir Tab/Cap) [address] [facility] Last Admin: 10/10/25 04:22 Dose: 5 mg Pantoprazole Sodium (Pantoprazole 40 Mg Sdv) [address] [facility] Last Admin: 10/09/25 20:47 Dose: 40 mg Trazodone HCl (Trazodone 50 Mg Tablet) [address] [facility] Last Admin: 10/09/25 20:46 Dose: 75 mg Vancomycin HCl (Vancomycin 1,000 Mg Sdv (Pharmacy Mix)) 0 mg XX PRN PRN PRN Reason: Pharmacy to Dose Vitals/I&O/Wt Last Vital Signs Temp 99.1 F 10/10/25 08:00 Pulse 100 10/10/25 08:00 Resp 11 L 10/10/25 08:02 BP 121/86 10/10/25 08:00 Pulse Ox 99 10/10/25 08:02 O2 Del Method Mechanical Ventilation 10/10/25 08:00 O2 Flow Rate 3 10/07/25 11:32 FiO2 40 10/10/25 08:02 10/09/25 10/10/25 10/10/25 22:59 06:59 14:59 Intake Total 370.500 / 586.573 286.562 / 873.135 21.665 / 21.665 Balance 370.500 / 586.573 286.562 / 873.135 21.665 / 21.665 Weight last 48 hrs Weight 136 lb 10.986 oz Weight 125 lb 10.616 oz Physical Exam Narrative: GENERAL: The patient is intubated and somewhat sedated. Opens her eyes to verbal response. HEENT: No significant pallor, icterus or lymphadenopathy.Oral cavity: There are no mucous membrane lesions. NECK: Trachea appears to be central. No masses noted. No JVD or thyromegaly appreciated. RESPIRATORY: Chest is symmetrical. No intercostals muscle retraction or any accessory muscle activation. There is no chest wall tenderness. Breath sounds are heard bilaterally. No rales or rhonchi heard. No evidence of any consolidation. BREASTS: Deferred. HEART: The heart sounds are normal. No S3 or S4. No significant murmurs. No pericardial rub ABDOMEN: No vessel pulsations or distention. No tenderness. No organomegaly appreciated. Bowel sounds are normally heard. : Deferred. RECTAL: Deferred. LYMPHATIC: No lymphadenopathy noted in the neck. EXTREMITIES: No edema or cyanosis. No clubbing. MUSCULOSKELETAL: No acute joint deformities or swelling SKIN: There are no significant rashes or ecchymosis NEUROPSYCHIATRIC: The patient is alert and oriented x3. Appears to be in a good mood. No tremors or rigidity noted. Urinary Catheter Management: Jefferson: Cath Placed During This Visit: yes Reason for Continuing Indwelling Catheter: Accurate Measurement of Urinary Output in Critically Ill Patients Urinary Catheter Date of Insertion: 10/06/25 Urinary Catheter Time of Insertion: 17:50 Data 10/10/25 02:52 10/10/25 02:52 Other Labs: Laboratory Last Values WBC 17.03 10^3/uL (3.29-11.43) H 10/10/25 02:52 RBC 3.39 10^6/uL (3.85-5.65) L 10/10/25 02:52 Hgb 9.30 g/dL (11.27-16.99) L 10/10/25 02:52 Hct 30.3 % (36-47) L 10/10/25 02:52 MCV 89.4 fl (85-98) 10/10/25 02:52 MCH 27.4 pg (27-33) 10/10/25 02:52 MCHC 30.7 g/dL (30-55) 10/10/25 02:52 RDW 16.6 % (12.1-15.1) H 10/10/25 02:52 Plt Count 234 10^3/cmm (157-399) 10/10/25 02:52 MPV 10.3 fL (7.4-10.4) 10/10/25 02:52 Neut % (Auto) 91.0 % 10/10/25 02:52 Lymph % (Auto) 1.5 % 10/10/25 02:52 [place] % (Auto) 2.6 % 10/10/25 02:52 Eos % (Auto) 0.0 % 10/10/25 02:52 Baso % (Auto) 0.1 % 10/10/25 02:52 Neut # (Auto) 15.51 10^3/uL (1.8-7.7) H 10/10/25 02:52 Lymph # (Auto) 0.3 10^3/uL (0.8-4.8) L 10/10/25 02:52 [place] # (Auto) 0.4 10^3/uL (0.2-0.9) 10/10/25 02:52 Eos # (Auto) 0.0 10^3/uL (0.0-0.8) 10/10/25 02:52 Baso # (Auto) 0.0 10^3/uL (0.0-0.1) 10/10/25 02:52 Nucleated RBC % (auto) 0 % 10/10/25 02:52 Nucleated RBCs # 0.0 /100WBC 10/10/25 02:52 PT 14.50 SECONDS (12.1-14.9) 10/10/25 02:52 INR 1.06 (0.8-1.2) 10/10/25 02:52 APTT 29.9 SECONDS (23.9-36.7) 10/06/25 16:21 Specimen Type Arterial 10/10/25 04:55 Sample Site Radial, right 10/10/25 04:55 ABG pH 7.30 (7.35-7.45) L 10/10/25 04:55 ABG pCO2 43.1 mmHg (35-45) 10/10/25 04:55 ABG pO2 78.9 mmHg (80.0-100.0) L 10/10/25 04:55 ABG PO2/FiO2 Ratio 197 10/10/25 04:55 ABG HCO3 21.1 mmol/L (22-26) L 10/10/25 04:55 ABG O2 Saturation > 99.1 10/07/25 21:50 ABG Base Excess -5.0 mmol/L (-2.0-2.0) L 10/10/25 04:55 Bob Test Pos 10/10/25 04:55 A-a O2 Gradient 19.1 mmHg (5-10) H 10/07/25 21:50 Hematocrit 21.2 % (37-47) L 10/10/25 04:55 Hgb O2 Saturation 97.1 % (95-100) 10/07/25 21:50 Carboxyhemoglobin 1.1 %THgb (0.4-20.1) 10/07/25 21:50 Methemoglobin 1.3 % (0.4-1.5) 10/07/25 21:50 Total Hemoglobin 9.4 g/dL (12-16) L 10/07/25 21:50 Sodium 139.0 mmol/L (131-143) 10/07/25 21:50 Potassium 3.6 mmol/L (3.5-5.0) 10/07/25 21:50 Glucose 331.0 mg/dL (70-115) H 10/07/25 21:50 Ionized Calcium 1.1 mmol/L (1.1-1.4) 10/07/25 21:50 O2 Delivery Device Vent 10/10/25 04:55 FiO2 40.0 % 10/10/25 04:55 Tidal Volume 0.40 10/10/25 04:55 PEEP 5.0 cmH20 10/10/25 04:55 Language Instructor ID Ramone 10/10/25 04:55 Crit Value Read Back Cartr 10/07/25 14:40 Blood Gas Notified Time 1510 10/07/25 14:40 Sodium 136 mmol/L (136-145) 10/10/25 02:52 Potassium 4.9 mmol/L (3.5-5.1) 10/10/25 02:52 Chloride 99 mmol/L (98-107) 10/10/25 02:52 Carbon Dioxide 22 mmol/L (22-29) 10/10/25 02:52 Anion Gap 19.9 (5-19) H 10/10/25 02:52 BUN 50 mg/dL (8-23) H 10/10/25 02:52 Creatinine 2.1 mg/dL (0.5-0.9) H 10/10/25 02:52 GFR Calculation Not Reportable 10/10/25 02:52 Glucose 209 mg/dL (65-115) H 10/10/25 02:52 POC Glucose 275 mg/dL (70-110) H 10/10/25 07:37 Estimat Average Glucose 146 10/06/25 16:21 Hemoglobin A1c 6.7 % (4.0-6.0) H 10/06/25 16:21 Calculated Osmolality 301 mOsm/kg (285-295) H 10/10/25 02:52 Lactic Acid 1.3 mmol/L (0.5-2.2) 10/06/25 16:21 Lactate 1.2 mmol/L (0.5-2.2) 10/10/25 02:52 Calcium 8.6 mg/dL (8.5-10.5) 10/10/25 02:52 Phosphorus 4.7 mg/dL (2.5-4.5) H 10/10/25 02:52 Phosphorus Cancelled 10/10/25 02:52 Magnesium 2.1 mg/dL (1.7-2.3) 10/10/25 02:52 Magnesium Cancelled 10/10/25 02:52 Total Bilirubin 0.3 mg/dL (0.15-1.2) 10/10/25 02:52 AST 63 U/L (0-32) H 10/10/25 02:52 ALT 29 U/L (0-33) 10/10/25 02:52 Alkaline Phosphatase 58 U/L (35-105) 10/10/25 02:52 Creatine Kinase 40 U/L (26-192) 10/06/25 16:21 Troponin T Baseline 31 ng/L (0-10) H 10/07/25 18:42 Troponin T 120 Minute 26.53 ng/L (0-10) H 10/07/25 21:40 Delta Troponin T -4.47 ABS# (0-10) L 10/07/25 21:40 Troponin T Hi Sens 6Hr 26.37 ng/L (0-10) H 10/08/25 00:45 Troponin T Hi Sens 6Hr Delta -4.63 ng/L (0-12) L 10/08/25 00:45 C-Reactive Protein 34.4 mg/L (0.0-4.9) H 10/10/25 02:52 C-Reactive Protein Cancelled 10/10/25 02:52 NT-Pro-B Natriuret Pep 7733 pg/mL (0-450) H 10/10/25 02:52 NT-Pro-B Natriuret Pep Cancelled 10/10/25 02:52 Total Protein 5.5 g/dL (6.6-8.7) L 10/10/25 02:52 Albumin 3.3 g/dL (3.5-5.2) L 10/10/25 02:52 Globulin 2.2 g/dL (1.3-4.6) 10/10/25 02:52 Triglycerides 144 mg/dL (0-150) 10/06/25 16:21 Cholesterol 298 mg/dL (0-200) H 10/06/25 16:21 LDL Cholesterol, Calc 207 mg/dL (50-129) H 10/06/25 16:21 HDL Cholesterol 62 mg/dL (60-100) 10/06/25 16:21 LDL/HDL Ratio 3.34 RATIO (0.00-3.22) H 10/06/25 16:21 Cholesterol/HDL Ratio 4.81 mg/dL (0.0-4.40) H 10/06/25 16:21 Procalcitonin 1.24 ng/mL (0-0.5) H 10/10/25 02:52 Procalcitonin Cancelled 10/10/25 02:52 TSH 2.89 uIU/mL (0.27-4.20) 10/06/25 16:21 Urine Color Yellow (Yellow) 10/06/25 16:35 Urine Appearance Clear (CLEAR) 10/06/25 16:35 Urine pH 5.5 (5-7) 10/06/25 16:35 Ur Specific [place] 1.017 (1.005-1.030) 10/06/25 16:35 Urine Protein Trace (Negative) A 10/06/25 16:35 Urine Glucose (UA) Negative (Normal) 10/06/25 16:35 Urine Ketones Negative (Negative) 10/06/25 16:35 Urine Blood Negative (Negative) 10/06/25 16:35 Urine Nitrate Negative (Negative) 10/06/25 16:35 Urine Bilirubin Negative (Negative) 10/06/25 16:35 Urine Urobilinogen 0.2 mg/dL (Negative) 10/06/25 16:35 Ur Leukocyte Esterase Negative (Negative) 10/06/25 16:35 Urine RBC 0-2 /hpf (0-2) 10/06/25 16:35 Urine WBC 0-5 /hpf (0-5) 10/06/25 16:35 Ur Squamous Epith Cells 0-5 /hpf (0-5) 10/06/25 16:35 Amorphous Sediment Not Reportable 10/06/25 16:35 Urine Bacteria None seen /hpf (NONE) 10/06/25 16:35 Hyaline Casts 20.27 /lpf 10/06/25 16:35 Vancomycin Trough 10.6 ug/mL (10-15) 10/08/25 17:47 Random Vancomycin 12.0 ug/mL (20.0-40.0) L 10/10/25 02:52 Digoxin 1.9 ng/mL (0.6-1.2) H 10/10/25 02:52 Influenza A (PCR) Negative (Negative) 10/07/25 18:38 Influenza Type B (PCR) Negative (Negative) 10/07/25 18:38 RSV (PCR) Negative (Negative) 10/07/25 18:38 SARS-CoV-2 (PCR) Negative (Negative) 10/07/25 18:38 Blood Type O Positive 10/07/25 09:54 Rho(D) Type Rh positive 10/07/25 09:54 Antibody Screen Negative 10/07/25 09:54 Crossmatch See Detail 10/07/25 09:54 Micro: Microbiology 10/07/25 15:45 Gram Stain - Final Sputum - Endotracheal Tube Aspirate Sputum Culture - Final 10/07/25 18:36 Urine Culture - Final Urine Catheterized A&P Assessment and plan 1. Atrial fibrillation with rapid ventricular response: This patient is known to have chronic atrial fibrillation. Her heart rate has been staying relatively high most of the times at home. Patient has severe COPD and chronic hypoxic respiratory failure. So relatively high heart rate can be expected. Currently she is on 40% FiO2. Her digoxin level today is a 1.9. Patient is on IV amiodarone 2. Congestive heart failure, unspecified HF chronicity, unspecified heart failure type: Patient is LV ejection fraction by echocardiogram is slightly depressed. Because of the technical difficulty, the ejection fraction estimation is very misleading. The views obtained were mostly subcostal 3. Primary hypertension: The blood pressure is in the normal range at this time. 4. Mixed hyperlipidemia: May continue on the current management 5. Type 2 diabetes mellitus without complication, with long-term current use of insulin: Aggressive control would be appropriate. 6. Stage 3a chronic kidney disease: The chronic kidney disease also could be a contributing factor 7. Sepsis with acute organ dysfunction and septic shock, due to unspecified organism, unspecified organ dysfunction type: Patient is treated with empiric antibiotics. She is off the vasopressors.. Plan: Reviewed the medical records Discussed with the clinical staff The patient is her cardiovascular status seems to be fairly stable at this time I will try to wean her off the IV amiodarone slowly. May hold off on digoxin for today. Her slight LV dysfunction, could be related to the atrial fibrillation. May continue on the other current management. Discussed with the Dr. Castro PDMP PDMP Reviewed: Not Reviewed Attestations Medical Necessity Statement*: Deferred to the primary Coding Level of Care Code 59631 Diagnoses Atrial fibrillation with rapid ventricular response I48.91 Congestive heart failure, unspecified HF chronicity, unspecified heart failure type I50.9 Heart failure chronicity: unspecified Heart failure type: unspecified Primary hypertension I10 Hypertension type: primary hypertension Mixed hyperlipidemia E78.2 Hyperlipidemia type: mixed hyperlipidemia Type 2 diabetes mellitus without complication, with long-term current use of insulin E11.9; Z79.4 Diabetes mellitus complication status: without complication Diabetes mellitus terminal carman insulin use: with mcfp use Stage 3a chronic kidney disease N18.31 Chronic kidney disease stage 3 subtype: stage 3a (GFR 45-59) Sepsis with acute organ dysfunction and septic shock, due to unspecified organism, unspecified organ dysfunction type A41.9; R65.21 Sepsis type: sepsis due to unspecified organism Sepsis acute organ dysfunction status: with acute organ dysfunction Severe sepsis acute organ dysfunction type: unspecified Severe sepsis shock status: with septic shock
--- NOTE | 2025-10-10 09:00 | PC.NURSE ---
Lidocaine patch removed.
--- NOTE | 2025-10-10 09:12 | PC.OT ---
OT evaluation continues to be on hold as patient remains on vent. Will attempt again later.
[2025-10-10] MEDS: dexmedeTOMIDine 0.9 % NaCL 400 MCG/100 ML PREMIX 11.94 MCG IV (10:15)
--- NOTE | 2025-10-10 10:29 | XRR_ITS ---
PROCEDURE INFORMATION: Exam: XR Chest Exam date and time: 10/10/2025 11:59 AM Age: 79 years old Clinical indication: Device placement; Chest tube; Additional info: Chest tube and intubated TECHNIQUE: Imaging protocol: Radiologic exam of the chest. Views: 1 view. COMPARISON: CR XR chest 1V portable [id number] 10/09/2025 11:54 AM FINDINGS: Tubes, catheters and devices: Endotracheal tube and nasogastric tube and right internal jugular central line are unchanged in expected position. Lungs: Lucencies at the left base are seen again which may represent bulla. Increased right basilar opacity/consolidation. Pleural spaces: Unremarkable. No pleural effusion. No pneumothorax. Heart/Mediastinum: Unremarkable. No cardiomegaly. Bones/joints: Unremarkable. XR/XR chest 1V portable [id number] IMPRESSION: Increased consolidation at the right lung base.
[2025-10-10] MEDS: morphine 4 mg/mL SDV 1 mL 2 MG IVP ×2 (10:32→18:16)
[2025-10-10 10:51] LABS: ABG PCO2 42.8 mmHg (35-45); ABG PH Result 7.37 (7.35-7.45); Alveolar-Arterial Oxygen Gradi 18.5 mmHg (5-10); Arterial Blood Gas Hematocrit 30.1 % (37-47); Blood Gas Allen Test Pos; Blood Gas Sample Site Brachial, left; Blood Gas Sample Type Arterial; Carboxyhemoglobin 1.0 %THgb (0.4-20.1); Glucose Level-ABG 188.0 mg/dL (70-115); HCO3 ABG 24.6 mmol/L (22-26); Ionized Calcium Level - ABG 1.2 mmol/L (1.1-1.4); Methemoglobin 1.2 % (0.4-1.5); Oxygen Saturation ABG 97.6; PEEP 5.0 cmH20; PO2 ABG 90.0 mmHg (80.0-100.0); PO2 FiO2 Ratio Arterial Blood 225; Potassium Level - ABG 4.3 mmol/L (3.5-5.0); Sodium Level - ABG 138.0 mmol/L (131-143)
[2025-10-10] MEDS: vancomycin 500 MG in sodium chloride 0.9% (plus) 100 ML 200 MG IV (11:31)
--- NOTE | 2025-10-10 11:43 | P.PN_ITS ---
Subjective 2 Subjective: Deidra De La Torre is a 79 year old female with past medical history of multiple sclerosis, atrial fibrillation, on anticoagulation therapy, history of congestive heart failure, history of seizure, history of dementia comes into the hospital complaining of left hip pain initially on 10/06/2025. Was also found to be in A-fib with RVR and placed on amnio drip. Taken to surgery for hip fracture repair, started having difficulty bagging and ventilating. Chest x-ray in ICU taken showed large left-sided pneumothorax. Plan to pressures at 32 on the ventilator. Has a 7.0 tube was a difficult airway per report. Was having difficulty oxygenating and ventilating postoperatively. In 10/08/2025 On ventilator tolerating well Precedex at 0.2 amiodarone 0.5 levo at 4 10/09/25 On vent tolerating well. on precedex and fentanyl gtts at 75. in 40% fio2 on vent. 10/10/2025 Tolerating SBT well on PS 10 and 5, FiO2 40%. Only on 0.9 of Precedex this morning waking up and following commands. Good cuff leak. Review of systems unobtainable patient is on the vent Vitals/I&O/Wt Last Vital Signs Temp 99.1 F 10/10/25 08:00 Pulse 99 10/10/25 11:16 Resp 12 10/10/25 11:16 BP 121/86 10/10/25 08:00 Pulse Ox 96 10/10/25 11:16 O2 Del Method Mechanical Ventilation 10/10/25 11:16 O2 Flow Rate 3 10/07/25 11:32 FiO2 40 10/10/25 11:16 10/09/25 10/10/25 10/10/25 22:59 06:59 14:59 Intake Total 370.500 / 586.573 286.562 / 873.135 63.721 / 63.721 Balance 370.500 / 586.573 286.562 / 873.135 63.721 / 63.721 Weight last 48 hrs Weight 136 lb 10.986 oz Weight 125 lb 10.616 oz Physical Exam 2 Narrative: Per RN General: Intubated sedated Pulmonary: Diminished breath sounds bilaterally Cardiovascular: rrr, nl s1s2, Abdomen: soft, nt, nd, no r/g, Extremities: no edema Neurologic: grossly intact Agree with above exam Urinary Catheter Management: Jefferson: Cath Placed During This Visit: yes Reason for Continuing Indwelling Catheter: Accurate Measurement of Urinary Output in Critically Ill Patients Urinary Catheter Date of Insertion: 10/06/25 Urinary Catheter Time of Insertion: 17:50 Data 10/10/25 02:52 10/10/25 02:52 Micro: Microbiology 10/07/25 15:45 Gram Stain - Final Sputum - Endotracheal Tube Aspirate Sputum Culture - Final 10/07/25 18:36 Urine Culture - Final Urine Catheterized A&P Assessment and plan 1. Pneumothorax with hemothorax, traumatic: 2. COPD (chronic obstructive pulmonary disease): Plan: # Acute hypoxic hypercarbic hypoxic and hypercapnic -Continue ventilator support. -Reviewed ABG 10/10/2025 showing pH of 7.37/pCO2 42/pO2 225 PF Bronchopulmonary etiology therapy Currently on pressure support ventilation SBT 08/23, FiO2 40%. I discussed with staff at bedside. Will plan to extubate with BiPAP standby and if she gets into distress we will reintubate. # critical airway -Good cuff, plan to extubate today. # Left-sided pneumothorax Reviewed chest x-ray from this morning and compared to last night 10/10/2025- independently interpreted images. Has a large left-sided lower lobe bleb as confirmed on CT chest from 10/07/2025. Pigtail catheter working well. On waterseal reimaged on chest x-ray no pneumo seen today 10/10/2025 Would like extubation today and if tolerates well discuss with surgery regarding removal of pigtail catheter. Appreciate their help. # Closed left femur hip fracture status post left hemiarthroplasty 10/07/2025 Per Ortho appreciate help # A-fib with RVR Continue close monitoring on Amio drip at 0.5 Digoxin given Reviewed cardiology note. High heart rate is expected. Plan is to continue IV amiodarone. Digoxin level is 1.9 today. Appreciate help # KYLE on CKD stage III -Creatinine 2.3, baseline creatinine: 0.6-labs reviewed 10/08/2025. Avoid nephrotoxic agents - Give her dose of Lasix. # Type 2 diabetes insulin sliding scale medium. Avoid hypoglycemia. Maintain blood sugars between 140-180. Dextrose drip if needed to maintain blood sugars above 70 # End-stage COPD # Chronic respiratory failure hypoxic and hypercapnic previously on home Trilogy vent # Probable sepsis-ruled out - Although her white count is slightly elevated most likely a steroid effect, do not see any source of infection at this time. Cultures blood and urine have so far been negative. Will stop antibiotics at this time and clinically observe for signs of infection # Chronic congestive heart failure -As needed Lasix # Probable smoker -Observed for withdrawals mainly nicotine patch # Hyperglycemia- # Sedation-continue Versed and fentanyl pushes as needed for now. Precedex wean off as tolerated. Started OXYIR and Ativan TID per OGT # Nutrition-n.p.o. for now # DVT GI prophylaxis-SCDs and famotidine. Hold off on anticoagulation secondary to anemia which could be acute blood loss. # Goals of care-d per primary team. Discussed with at bedside 10/10/2025-he wants everything done including reintubation if needed as well as tracheostomy as if needed. I discussed with staff at bedside. Will plan to extubate with BiPAP standby and if she gets into distress we will reintubate. # CODE STATUS- FULL # Disposition-Will need full ICU support follow-up The high probability of a clinically significant, sudden or life threatening deterioration of the patient's [Respiratory, cardiac and renal] system(s) required my full and direct attention, intervention and personal management. The critical care time is as shown. This time is in addition to time spent performing any reported procedures but includes the following: [x] Data and vital sign review and interpretation [x] Patient assessment, examination and intervention [x] Documentation [x] Medication orders and management Critical Care Time (min): 35 Telemedicine Consent Patient seen today via Telemedicine by agreement and consent of patient.? Telemedicine technology used during the visit includes audio and, as available, review of images.? The patient encounter is appropriate and reasonable under the circumstances given the patient?s particular presentation at this time.? The patient has been advised of the potential risks and limitations of this mode of treatment (including but not limited to the absence of in-person examination) and has agreed to be treated in a remote fashion in spite of them.? Any, and all, of the patient?s/patient?s family?s questions on this issue have been answered and I have made no promises or guarantees to the patient. PDMP PDMP Reviewed: Not Reviewed Attestations 2 Medical Necessity Statement*: On mechanical ventilation Coding Level of Care Code Critical Care >/= 30 minutes Diagnoses Pneumothorax with hemothorax, traumatic S27.2XXA COPD (chronic obstructive pulmonary disease) J44.9
--- NOTE | 2025-10-10 11:57 | P.PN_ITS ---
Subjective 2 Subjective: Appears in less discomfort today. No grimacing. Intermittently wakes up and rises up in bed. Accompanied by her daughter and . Vitals/I&O/Wt Last Vital Signs Temp 99.1 F 10/10/25 08:00 Pulse 99 10/10/25 11:16 Resp 12 10/10/25 11:16 BP 121/86 10/10/25 08:00 Pulse Ox 96 10/10/25 11:16 O2 Del Method Mechanical Ventilation 10/10/25 11:16 O2 Flow Rate 3 10/07/25 11:32 FiO2 40 10/10/25 11:16 10/09/25 10/10/25 10/10/25 22:59 06:59 14:59 Intake Total 370.500 / 586.573 286.562 / 873.135 63.721 / 63.721 Balance 370.500 / 586.573 286.562 / 873.135 63.721 / 63.721 Weight last 48 hrs Weight 62 kg Weight 57 kg Physical Exam 2 Narrative: Accompanied by her family Const: GENERAL APPEARANCE: patient mechanically ventilated OTHER: Intermittently overbreathing the vent HENMT: COMMON NORMALS: oropharynx normal OTHER: ETT Neck/C-Spine: COMMON NORMALS: no JVD OTHER: Right IJ Chest: OTHER: Left CT, no air leak Resp: COMMON NORMALS: normal respiratory effort and clear to auscultation bilaterally AUSCULTATION: clear to auscultation bilaterally Cardio: COMMON NORMALS: no JVD, S1 normal heart sound present, S2 normal heart sound present and No murmurs present (Cardio) RATE: tachycardic RHYTHM: a bnormal rhythm irregularly irregular HEART SOUNDS: S1 normal heart sound present and S2 normal heart sound present GI: COMMON NORMALS: Normal to inspection, nondistended, normoactive bowel sounds present, Soft to palpation and non-tender PALPATION: Yes Soft to palpation Extremity: COMMON NORMALS: no joint enlargement and no pedal edema Neuro: COMMON NORMALS: moves all extremities Skin: COMMON NORMALS: no rashes or lesions noted GENERAL SKIN EXAM: no rashes or lesions noted Urinary Catheter Management: Jefferson: Cath Placed During This Visit: yes Reason for Continuing Indwelling Catheter: Accurate Measurement of Urinary Output in Critically Ill Patients Urinary Catheter Date of Insertion: 10/06/25 Urinary Catheter Time of Insertion: 17:50 Data 10/10/25 02:52 10/10/25 02:52 Micro: Microbiology 10/07/25 15:45 Gram Stain - Final Sputum - Endotracheal Tube Aspirate Sputum Culture - Final 10/07/25 18:36 Urine Culture - Final Urine Catheterized A&P Assessment and plan 1. Type 2 diabetes mellitus without complication, with long-term current use of insulin: 2. Stage 3a chronic kidney disease: 3. Chronic anemia: 4. Acute kidney injury: 5. Closed left hip fracture: 6. Atrial fibrillation with rapid ventricular response: 7. Closed hip fracture: 8. Acute respiratory failure with hypoxia and hypercapnia: 9. Pneumothorax with hemothorax, traumatic: 10. Chronic respiratory failure with hypoxia and hypercapnia: 11. COPD (chronic obstructive pulmonary disease): 12. Septic shock: 13. Primary hypertension: 14. Mixed hyperlipidemia: 15. Nicotine abuse: 16. Chronic anticoagulation: Plan: Acute hypoxic hypercarbic respiratory failure: This morning weaning sedation, off fentanyl. Has continued on Precedex. Intermittently rising up in bed, but has been helped by her daughter reorienting her. On 40% FiO2 on review of ventilator settings, intermittently overbreathing the vent. No airleak in chest tube. With noted some persistent notable leukocytosis 17,000, continue Lee treatment for possible pneumonia. Heart rate today is doing better, discussed with grain unloader machine, 90s-low 100s. Continue Amio drip. Reviewed dig level, noted high at 1.9, discussed with patient's family. Hold dig for today, may resume subsequently. Continue monitoring telemetry. Discussed with pulm crit specialist, extubating today with subsequent chest tube removal by gen surg. Continue to monitor. Repeat CXR in AM. With anxiety issue at baseline, some cognitive dysfunction, possible delirium/Encephalopathy superimposed on chronic mild cognitive decline, continue Precedex as needed. In case of prolonged use, discussed with nursing staff need for gradual taper to prevent withdrawal. Continued pain control. Monitor for risk of respiratory depression. Continue to monitor in ICU for now postextubation with increase in risk of need for reintubation. Resume Trelegy at nighttime. Add incentive spirometer, flutter valve. Continue to reorient. Resume PT, OT. ST eval. - With underlying COPD, chronic respiratory failure with hypoxia and hypercapnia on home trilogy vent. Severe emphysema with large blebs. -With history of systolic and diastolic CHF - With left sided pneumothorax status post chest tube placement. So far no airleak. Pneumothorax so far has resolved. - Concern for pneumonia -Completed vancomycin - Completed course of aztreonam - Sputum culture reviewed. Discussed risk of VAP. Moderate normal errol on culture. - Blood culture reviewed - Solu-Medrol 40 mg IV every 8 hours - DuoNeb - Budesonide - Lasix if developing fluid overload Left-sided pneumothorax - Seen on chest x-ray 09/1925 at 1546, postoperatively - Status post chest tube placement by Dr. Blanco CT chest CT/CT chest wo con [id number] IMPRESSION: 1. Slightly decreased in size of left anterobasilar pneumothorax compared with prior chest x-ray. 2. Small loculated right pleural effusion. 3. Extensive emphysematous changes, with large bulla occupying the left lower lobe. 4. Several lung nodules measuring up to 4 mm in the right lung, stable compared with the 06/04/2024. 5. Small perihepatic ascites. 6. Gallbladder wall appears thickened and edematous and contains dense material, possibly sludge and cholelithiasis. Recommend CT abdomen and pelvis and/or right upper quadrant ultrasound for further evaluation. 7. Age-indeterminate compression deformity of the L2 vertebral body, new since prior exam on 06/04/2024. - Repeat chest x-ray 06/29/2025 at 11 AM shows no reaccumulation of left pneumothorax - Currently chest tube is to waterseal -No leak detected Plan Chest tube clamped and chest x-ray reassess. So far maintaining lung inflation without recurrent pneumothorax. CT removed. Reassess x-ray in the morning. Pending pulmonary assessment and optimization of above factors with weaning of sedation, heart rate control. - If any sudden onset worsening respiratory failure, hypotension, desaturations chest tube to be placed back to suction - Daily chest x-rays - Monitor clinical status closely A-fib with RVR: Continue amiodarone infusion. Reviewed dig level, high today. Discussed with cardiology, hold off today's dose of oral digoxin. Monitor blood pressures, if maintaining without further dips consider resumption of some of her home metoprolol. Off anticoagulation due to anemia. Consider trial of prophylactic heparin. Forehead hematoma: About 2 x 3 cm. After IV pole injury. Monitor. Acute on chronic anemia: Hemoglobin has remained steady. Consider trial of subcu heparin for VTE prophylaxis. - Hemoglobin 9.5 - s/p 2 units PRBC - Repeat blood counts in the morning. - Transfuse if hemoglobin less than 8 - Will hold off on anticoagulant therapy for atrial fibrillation, DVT prophylaxis due to persistent anemia NSTEMI - Patient had nonspecific ST-T wave changes yesterday at about 6 PM - Spoke to cardiology, no acute ST or T wave changes, recommended medical management - Cardiology consulted. Note reviewed. - Cardiac echo reviewed CONCLUSIONS Technically limited quality echocardiogram because of poor ultrasonic windows. Grossly LV systolic function is borderline low. RV appears to be mildly hypokinetic. Biatrial enlargement. Mild mitral regurgitation. Moderate to severe tricuspid regurgitation. Moderate pulmonary hypertension. IVC appears to be dilated. Plan - Aspirin, statin - Anticoagulant therapy held as above Septic shock: Resolved. Off Levophed. Monitor blood pressures. Antihypertensives/metoprolol held - Secondary to pneumonia Left hip fracture XR/XR hip LT 2-3V wo/w pel* [id number] IMPRESSION: Subcapital fracture of the proximal left femur. Some improvement in pain control. Plan - Status post surgical intervention - Morphine for pain control. Caution with pain medications with encephalopathy, fluctuating blood pressure. Lidocaine patch. - Orthopedic note reviewed Resume PT, OT Acute kidney injury: Creatinine steady 2.1. Monitor CAROL. Reassess chemistry. Diastolic CHF elevated BNP. Monitor for signs of fluid overload which may necessitate resumption of some diuresis. Type 2 diabetes mellitus, moderate dose sliding scale. Monitor blood glucose History of dementia History of multiple sclerosis Full code SCDs for DVT prophylaxis, anticoagulation currently on hold as patient has postoperative anemia Protonix for GI prophylaxis PDMP PDMP Reviewed: Not Reviewed Attestations 2 Medical Necessity Statement*: Continue admission for continued optimization and reassessment of resolution of pneumothorax and maintenance of inflation of the lung removal of CT, weaning of mechanical ventilation support with underlying COPD with severe [id number] large blebs, extubation. Optimization of control of A-fib with RVR, after recent shock, with anemia, acute encephalopathy, KYLE, underlying diastolic CHF, diabetes and additional comorbidities as above. Coding Level of Care Code Critical Care >/= 30 minutes Critical care time (in minutes): 50 The high probability of a clinically significant, sudden or life threatening deterioration, as referenced in this documentation, required my full and direct attention, intervention and personal management. The critical care time shown is in addition to time spent performing any reported separately billable procedures and includes the following: [x] Data and vital sign review and interpretation [x ] Patient assessment, examination and intervention [x] Medication orders and management [x] Patient/Family updates as able [x] Care Coordination and Documentation. Diagnoses Type 2 diabetes mellitus without complication, with long-term current use of insulin E11.9; Z79.4 Diabetes mellitus buttermaker continuous churn insulin use: with buttermaker continuous churn use Diabetes mellitus complication status: without complication Stage 3a chronic kidney disease N18.31 Chronic kidney disease stage 3 subtype: stage 3a (GFR 45-59) Chronic anemia D64.9 Acute kidney injury N17.9 Closed left hip fracture S72.002A Atrial fibrillation with rapid ventricular response I48.91 Closed hip fracture S72.009A Acute respiratory failure with hypoxia and hypercapnia J96.01; J96.02 Pneumothorax with hemothorax, traumatic S27.2XXA Chronic respiratory failure with hypoxia and hypercapnia J96.11; J96.12 COPD (chronic obstructive pulmonary disease) J44.1 COPD type: COPD with acute exacerbation Septic shock A41.9; R65.21 Primary hypertension I10 Hypertension type: primary hypertension Mixed hyperlipidemia E78.2 Hyperlipidemia type: mixed hyperlipidemia Nicotine abuse Z72.0 Chronic anticoagulation Z79.01
--- NOTE | 2025-10-10 12:05 | PC.NURSE ---
Pt extubated to 3lpm/NC. Tolerating well. NG removed intact. Restraints removed. Pt tolerated all well.
[2025-10-10] MEDS: FUROsemide 10 mg/mL SDV 2mL 20 MG IVP (12:16)
[2025-10-10] MEDS: AMIODARONE HCL/D5W 900 MG/500 ML BAG 16.67 MG IV (12:31)
--- NOTE | 2025-10-10 12:41 | PC.NURSE ---
Addendum entered by SIRI Bro 10/10/25 12:42: Witnessed waste of Fentanyl. Original Note: Fentanyl gtt wasted. Witnessed by LORENZO Zimmerman. See MAR for amount.
--- NOTE | 2025-10-10 13:03 | P.PN_ITS ---
Subjective 2 Subjective: Patient status post left hip hemiarthroplasty. Patient was just extubated as a went in to examine her. Family at the bedside. Vitals/I&O/Wt Last Vital Signs Temp 99.1 F 10/10/25 08:00 Pulse 99 10/10/25 11:16 Resp 12 10/10/25 11:16 BP 121/86 10/10/25 08:00 Pulse Ox 96 10/10/25 11:16 O2 Del Method Mechanical Ventilation 10/10/25 11:16 O2 Flow Rate 3 10/07/25 11:32 FiO2 40 10/10/25 11:16 10/09/25 10/10/25 10/10/25 22:59 06:59 14:59 Intake Total 370.500 / 586.573 286.562 / 873.135 579.884 / 579.884 Balance 370.500 / 586.573 286.562 / 873.135 579.884 / 579.884 Weight last 48 hrs Weight 136 lb 10.986 oz Weight 125 lb 10.616 oz Physical Exam 2 Narrative: Hip clean dry intact Urinary Catheter Management: Jefferson: Cath Placed During This Visit: yes Reason for Continuing Indwelling Catheter: Accurate Measurement of Urinary Output in Critically Ill Patients Urinary Catheter Date of Insertion: 10/06/25 Urinary Catheter Time of Insertion: 17:50 Data 10/10/25 02:52 10/10/25 02:52 Micro: Microbiology 10/07/25 15:45 Gram Stain - Final Sputum - Endotracheal Tube Aspirate Sputum Culture - Final 10/07/25 18:36 Urine Culture - Final Urine Catheterized A&P Assessment and plan 1. Closed hip fracture: Status post left hip Leonel arthroplasty PDMP PDMP Reviewed: Not Reviewed Attestations 2 Medical Necessity Statement*: Per primary service Coding Level of Care Code Acute Code for [facility] Fwd Diagnoses Closed hip fracture S72.009A
--- NOTE | 2025-10-10 14:30 | PC.NURSE ---
Rectal temp line not in correct placement with pt's squirming. Finished removing line from her rectum.
--- NOTE | 2025-10-10 15:30 | PC.NURSE ---
Dr Ritchie here at bedside. Chest tube removed. Pt tolerated very well. Daughter, Kacy notified of chest tubal removal via telephone.
--- NOTE | 2025-10-10 17:06 | PM.PROC ---
Procedure Note: Procedure: Procedure Note: Date of procedure: 10/10/25 Pre-pro cedure diagnosis: Left pneumothorax- resolved Post-pr ocedure diagnosis: same Procedure: I was consuklted to remove the estee st tube from this patient as her pne umothorax has reso lved and her respi ratory status has improved significa ntly. The patient was positioned wi th her left side u p and the bandage was removed. No ai r leak or respirat ory distress was n oted prior to the procedure. Once th e covering dressin g was removed the sutures were remov ed in the standard fashion that fixa jose the tube in pl gurpreet. At this point the patient was i nstructed to take a deep breath and the tube was remov ed quickly with no compliactions. A vaseline gauze mary carmen ssing was placed o ludin the exit site and the patient to lerated the proced ure well with no i ssues. Coding Level of Care Code Acute Code for Chg Fwd Dictated By: Quang Ritchie DO Signed By: Quang Ritchie DO Signed Date/Time: 10/10/25 0379 Coding Level of Care Code Acute Code for Chg Fwd
--- NOTE | 2025-10-10 17:30 | PC.NURSE ---
Not bloody drainage on chest tube site dressing. Re-enforced with gauze and foam tape.
--- NOTE | 2025-10-10 20:00 | XRR_ITS ---
PROCEDURE INFORMATION: Exam: XR Chest Exam date and time: 10/10/2025 8:54 PM Age: 79 years old Clinical indication: Shortness of breath; Additional info: 5hr post lt chest tube removal/extubation TECHNIQUE: Imaging protocol: Radiologic exam of the chest. Views: 1 view. COMPARISON: CR XR chest 1V portable [id number] 10/10/2025 11:59 AM FINDINGS: Tubes, catheters and devices: Right neck central line with tip at cavoatrial junction. Lungs: A few scattered nonspecific although chronic appearing pulmonary strands. Pleural spaces: Interval removal of left chest tube, with air in the soft tissues adjacent to the catheter entry site, no evidence of significant residual pneumothorax. Heart/Mediastinum: Unremarkable. No cardiomegaly. Vasculature: Aortic atherosclerosis. Bones/joints: Chronic appearing fracture of the right humeral head. XR/XR chest 1V portable [id number] IMPRESSION: Interval removal of left chest tube, with air in the soft tissues adjacent to the catheter entry site, no evidence of significant residual pneumothorax.
[2025-10-10] MEDS: pantoprazole 40 mg SDV IVP (20:39)
[2025-10-10] MEDS: heparin 5,000 unit/mL INJ 1 mL 5000 UNIT SUBCUT (20:40)
[2025-10-10] MEDS: dexmedeTOMIDine 0.9 % NaCL 400 MCG/100 ML PREMIX 10.61 MCG IV (23:36)
[2025-10-11] VITALS (78 sets, daily range): BP systolic 96–164; BP diastolic 44–97; PULSE 68–135; RESP 10–23; TEMP 36.6–37; O2SAT 90–100
[2025-10-11 03:19] LABS: Hematocrit 28.9 % (36-47); Hemoglobin 8.90 g/dL (11.27-16.99); Mean Corpuscular HGB Conc 30.8 g/dL (30-55); Mean Corpuscular Hemoglobin 28.0 pg (27-33); Mean Corpuscular Volume 90.9 fl (85-98); Nucleated Red Blood Cells % 0 %; Platelet Count 217 10^3/cmm (157-399); Red Blood Count 3.18 10^6/uL (3.85-5.65); White Blood Count 15.63 10^3/uL (3.29-11.43)
[2025-10-11 03:44] LABS: Alanine Aminotransferase 28 U/L (0-33); Albumin Level 3.2 g/dL (3.5-5.2); Alkaline Phosphatase 59 U/L (35-105); Anion Gap 19.5 (5-19); Aspartate Amino Transferase 54 U/L (0-32); Blood Urea Nitrogen 57 mg/dL (8-23); Calcium 8.5 mg/dL (8.5-10.5); Carbon Dioxide 23 mmol/L (22-29); Chloride 100 mmol/L (98-107); Globulin 2.6 g/dL (1.3-4.6); Glucose 214 mg/dL (65-115); Osmolality Calculated 308 mOsm/kg (285-295); Potassium 4.5 mmol/L (3.5-5.1); Sodium 138 mmol/L (136-145); Total Protein 5.8 g/dL (6.6-8.7)
[2025-10-11 04:37] LABS: ABG PCO2 43.2 mmHg (35-45); ABG PH Result 7.30 (7.35-7.45); Arterial Blood Gas Hematocrit 28.8 % (37-47); Blood Gas Sample Site Brachial, right; Blood Gas Sample Type Arterial; HCO3 ABG 21.2 mmol/L (22-26); PO2 ABG 91.7 mmHg (80.0-100.0); PO2 FiO2 Ratio Arterial Blood 305
[2025-10-11] MEDS: oxyCODONE 5 mg IR Tab/Cap PO ×3 (04:51→20:05)
[2025-10-11] MEDS: methylPREDNISolone sod succ 40 mg/mL INJ IVP ×2 (04:51→12:06)
--- NOTE | 2025-10-11 06:00 | XRR_ITS ---
PROCEDURE INFORMATION: Exam: XR Chest Exam date and time: 10/11/2025 7:28 AM Age: 79 years old Clinical indication: Condition or disease; Lung condition and disease; Pneumothorax; Additional info: Reassess resolution of ptx TECHNIQUE: Imaging protocol: Radiologic exam of the chest. Views: 1 view. COMPARISON: CR (CHEST, ) 10/10/2025 8:54 PM FINDINGS: Tubes, catheters and devices: Stable IJ catheter. Lungs: Unremarkable. No consolidation. Pleural spaces: Unchanged small pleural effusions. A very tiny left apical pneumothorax persists. Heart/Mediastinum: Unremarkable. No cardiomegaly. Bones/joints: Unremarkable. Soft tissues: Subcutaneous emphysema present along the left chest wall. XR/XR chest 1V portable [id number] IMPRESSION: Very tiny residual left pneumothorax.
--- NOTE | 2025-10-11 07:30 | PC.NURSE ---
Pt's tongue is purple along both sides. She finally cooperated this am for oral care
[2025-10-11] MEDS: heparin 5,000 unit/mL INJ 1 mL 5000 UNIT SUBCUT ×2 (08:44→20:06)
--- NOTE | 2025-10-11 08:47 | P.PN_ITS ---
Subjective 2 Subjective: Sleeping. Wakes up to voice. Denies pain or discomfort. Left hip pain has been improving. Vitals/I&O/Wt Last Vital Signs Temp 97.8 F 10/11/25 04:00 Pulse 83 10/11/25 07:53 Resp 14 10/11/25 07:33 BP 118/57 10/11/25 06:00 Pulse Ox 95 10/11/25 07:33 O2 Del Method Nasal Cannula 10/11/25 07:33 O2 Flow Rate 3 10/11/25 07:33 FiO2 30 10/11/25 03:52 10/10/25 10/11/25 10/11/25 22:59 06:59 14:59 Intake Total 143.138 / 737.235 73.871 / 811.106 Output Total 600 / 600 Balance 143.138 / 737.235 -526.129 / 211.106 Weight last 48 hrs Weight 61.8 kg Weight 62 kg Physical Exam 2 Narrative: This morning waking up to voice. HENMT: COMMON NORMALS: oropharynx normal Neck/C-Spine: COMMON NORMALS: no JVD OTHER: Right IJ Resp: COMMON NORMALS: normal respiratory effort and clear to auscultation bilaterally AUSCULTATION: clear to auscultation bilaterally Cardio: COMMON NORMALS: no JVD, S1 normal heart sound present, S2 normal heart sound present and No murmurs present (Cardio) RATE: tachycardic RHYTHM: a bnormal rhythm irregularly irregular HEART SOUNDS: S1 normal heart sound present and S2 normal heart sound present GI: COMMON NORMALS: Normal to inspection, nondistended, normoactive bowel sounds present, Soft to palpation and non-tender PALPATION: Yes Soft to palpation Extremity: COMMON NORMALS: no joint enlargement and no pedal edema Neuro: COMMON NORMALS: moves all extremities Skin: COMMON NORMALS: no rashes or lesions noted GENERAL SKIN EXAM: no rashes or lesions noted Urinary Catheter Management: [place]: Cath Placed During This Visit: yes Reason for Continuing Indwelling Catheter: Accurate Measurement of Urinary Output in Critically Ill Patients Urinary Catheter Date of Insertion: 10/06/25 Urinary Catheter Time of Insertion: 17:50 Data 10/11/25 02:51 10/11/25 02:51 A&P Assessment and plan 1. Type 2 diabetes mellitus without complication, with long-term current use of insulin: 2. Stage 3a chronic kidney disease: 3. Chronic anemia: 4. Acute kidney injury: 5. Closed left hip fracture: 6. Atrial fibrillation with rapid ventricular response: 7. Closed hip fracture: 8. Acute respiratory failure with hypoxia and hypercapnia: 9. Pneumothorax with hemothorax, traumatic: 10. Chronic respiratory failure with hypoxia and hypercapnia: 11. COPD (chronic obstructive pulmonary disease): 12. Septic shock: 13. Primary hypertension: 14. Mixed hyperlipidemia: 15. Nicotine abuse: 16. Chronic anticoagulation: Plan: Acute hypoxic hypercarbic respiratory failure: Extubated, so far doing well on 2-3 L nasal cannula oxygen. As per discussion with the surgeon CT removed. Reviewed x-ray, minimal residual PTX. Continue to monitor oxygenation. Supplemental oxygen, wean down as tolerated. Weaning down and off Precedex. Continue anxiety medication as needed. ST eval. Appreciate assessment. Dysphagia diet with pur?ed/thick diet with mildly thickened liquids. Maintain aspiration precautions. Resume PT/OT eval when they are back. Discussed with CM, continue with choices and arrangements for SNF. Some persistent notable leukocytosis 15,000. Reassess condition and blood counts with extubation. Per discussion with cardiology heart rate today is doing better. With being more awake in the afternoon switched over to oral Amio from Amio drip. Dig has been held for now. Will recheck level. Continue monitoring telemetry. Continued pain control. Monitor for risk of respiratory depression. Continue to monitor in ICU for now with weaning of Precedex, and postextubation with increased risk of need for reintubation with baseline comorbidities. Resume Trelegy at nighttime. Added incentive spirometer, flutter valve. Continue to reorient. - With underlying COPD, chronic respiratory failure with hypoxia and hypercapnia on home trilogy vent. Severe emphysema with large blebs. Will de-escalate IV corticosteroids. -With history of systolic and diastolic CHF - With left sided pneumothorax status post chest tube removal. - Concern for pneumonia, status post course of antibiotics -Completed vancomycin - Completed course of aztreonam - Sputum culture reviewed. Discussed risk of VAP. Moderate normal errol on culture. - Blood culture reviewed, remains negative - Solu-Medrol 40 mg IV every 8 hours, decreased to 20 mg - DuoNeb - Budesonide - Lasix if developing fluid overload Left-sided pneumothorax - Seen on chest x-ray 09/1925 at 1546, postoperatively - Status post chest tube placement by Dr. Blanco CT chest CT/CT chest wo con [id number] IMPRESSION: 1. Slightly decreased in size of left anterobasilar pneumothorax compared with prior chest x-ray. 2. Small loculated right pleural effusion. 3. Extensive emphysematous changes, with large bulla occupying the left lower lobe. 4. Several lung nodules measuring up to 4 mm in the right lung, stable compared with the 06/04/2024. 5. Small perihepatic ascites. 6. Gallbladder wall appears thickened and edematous and contains dense material, possibly sludge and cholelithiasis. Recommend CT abdomen and pelvis and/or right upper quadrant ultrasound for further evaluation. 7. Age-indeterminate compression deformity of the L2 vertebral body, new since prior exam on 06/04/2024. - Repeat chest x-ray 06/29/2025 at 11 AM shows no reaccumulation of left pneumothorax - Currently chest tube is to waterseal -No leak detected Plan Chest tube removed. Reviewed reassessment x-ray. Minimal residual pneumothorax.. - Monitor clinical status closely A-fib with RVR: Completed amiodarone transition to oral Amio per discussion with cardiology. Dig has been on hold. Recheck level. Monitor blood pressures, if maintaining without further dips consider resumption of some of her home metoprolol. Off anticoagulation due to anemia. Consider trial of prophylactic heparin. Forehead hematoma: Improving/resolved about 2 x 3 cm now 1 x 2 cm. After IV pole injury. Monitor. Acute on chronic anemia: Hemoglobin has remained steady. Trial of subcu heparin for VTE prophylaxis. - Hemoglobin 8.9. Repeat blood counts. - s/p 2 units PRBC - Repeat blood counts in the morning. - Transfuse if hemoglobin less than 8 - Will hold off on anticoagulant therapy for atrial fibrillation, DVT prophylaxis due to persistent anemia NSTEMI - Patient had nonspecific ST-T wave changes yesterday at about 6 PM - Spoke to cardiology, no acute ST or T wave changes, recommended medical management - Cardiology consulted. Note reviewed. - Cardiac echo reviewed CONCLUSIONS Technically limited quality echocardiogram because of poor ultrasonic windows. Grossly LV systolic function is borderline low. RV appears to be mildly hypokinetic. Biatrial enlargement. Mild mitral regurgitation. Moderate to severe tricuspid regurgitation. Moderate pulmonary hypertension. IVC appears to be dilated. Plan - Aspirin, statin - Anticoagulant therapy held as above Septic shock: Resolved. Off Levophed. Monitor blood pressures. Antihypertensives/metoprolol held - Secondary to pneumonia Left hip fracture XR/XR hip LT 2-3V wo/w pel* [id number] IMPRESSION: Subcapital fracture of the proximal left femur. Some improvement in pain control. Plan - Status post surgical intervention - Morphine for pain control. Caution with pain medications with encephalopathy, fluctuating blood pressure. Lidocaine patch. - Orthopedic note reviewed Resume PT, OT Acute kidney injury: Creatinine steady 2.1. Monitor CAROL. Reassess chemistry. Diastolic CHF elevated BNP. Monitor for signs of fluid overload which may necessitate resumption of some diuresis. Type 2 diabetes mellitus, moderate dose sliding scale. Monitor blood glucose History of dementia History of multiple sclerosis Full code SCDs for DVT prophylaxis, anticoagulation currently on hold as patient has postoperative anemia Protonix for GI prophylaxis PDMP PDMP Reviewed: Not Reviewed Attestations 2 Medical Necessity Statement*: Continue admission for continued weaning of Precedex, reassessment of mental status, initiation of oral diet, resumption of PT, OT, mobilization and placement arrangements, optimization and reassessment of resolution of pneumothorax and maintenance of inflation of the lung removal of CT, with underlying COPD with severe [id number] large blebs, extubation. Optimization of control of A-fib with RVR, after recent shock, with anemia, acute encephalopathy, KYLE, underlying diastolic CHF, diabetes and additional comorbidities as above. Coding Level of Care Code Critical Care >/= 30 minutes Critical care time (in minutes): 35 The high probability of a clinically significant, sudden or life threatening deterioration, as referenced in this documentation, required my full and direct attention, intervention and personal management. The critical care time shown is in addition to time spent performing any reported separately billable procedures and includes the following: [x] Data and vital sign review and interpretation [x ] Patient assessment, examination and intervention [x] Medication orders and management [x] Patient/Family updates as able [x] Care Coordination and Documentation. Diagnoses Type 2 diabetes mellitus without complication, with long-term current use of insulin E11.9; Z79.4 Diabetes mellitus emt intermediate insulin use: with emt intermediate use Diabetes mellitus complication status: without complication Stage 3a chronic kidney disease N18.31 Chronic kidney disease stage 3 subtype: stage 3a (GFR 45-59) Chronic anemia D64.9 Acute kidney injury N17.9 Closed left hip fracture S72.002A Atrial fibrillation with rapid ventricular response I48.91 Closed hip fracture S72.009A Acute respiratory failure with hypoxia and hypercapnia J96.01; J96.02 Pneumothorax with hemothorax, traumatic S27.2XXA Chronic respiratory failure with hypoxia and hypercapnia J96.11; J96.12 COPD (chronic obstructive pulmonary disease) J44.1 COPD type: COPD with acute exacerbation Septic shock A41.9; R65.21 Primary hypertension I10 Hypertension type: primary hypertension Mixed hyperlipidemia E78.2 Hyperlipidemia type: mixed hyperlipidemia Nicotine abuse Z72.0 Chronic anticoagulation Z79.01
--- NOTE | 2025-10-11 09:48 | P.PN_ITS ---
Subjective 2 Subjective: The patient is currently extubated. Telemetry shows atrial fibrillation with a controlled ventricular response rate. Blood pressure is in the normal range. Still on IV amiodarone. Medications: Medication Review Details: Current Medications Acetaminophen (Acetaminophen 325 Mg Tablet) 650 mg PO Q6H PRN PRN Reason: Mild/Mod Pain Or Temp >/= 101 Albuterol/Ipratropium (Ipratropium-Albuterol 3 Ml Neb) 3 ml INHALATION Q4H.RESPIRATORY MAKENZIE Last Admin: 10/11/25 07:32 Dose: 3 ml Aspirin (Aspirin 81 Mg Chew Tablet) 81 mg NG-TUBE DAILY MAKENZIE Last Admin: 10/11/25 04:51 Dose: 81 mg Atorvastatin Calcium (Atorvastatin 40 Mg Tablet) 40 mg PO BEDTIME MAKENZIE Last Admin: 10/10/25 20:39 Dose: 40 mg Budesonide (Budesonide 0.5 Mg/2 Ml Neb) 0.5 mg INHALATION BID.RESPIRATORY MAKENZIE Last Admin: 10/11/25 07:32 Dose: 0.5 mg Chlorhexidine Gluconate (Chlorhexidine Gluconate 4% Btl 118 Ml) 1 applic TOPICAL Q24H PRN PRN Reason: bath Escitalopram Oxalate (Escitalopram 10 Mg Tablet) 10 mg PO DAILY MAKENZIE Last Admin: 10/11/25 04:51 Dose: 10 mg Glucagon (Glucagon 1 Mg/Ml Kit 1 Ml) 1 mg IM ONCE PRN; Protocol PRN Reason: Adult Acute Hypoglycemia Nursing Prot. Heparin Sodium (Porcine) (Heparin 5,000 Unit/Ml Inj 1 Ml) 5,000 unit SUBCUT Q12H MAKENZIE Last Admin: 10/11/25 08:44 Dose: 5,000 unit AMIODARONE HCL/D5W (Amiodarone 900 Mg/500 Ml-D5w) 900 mg in 500 mls @ 0 mls/hr IV .Q0M MAKENZIE; Protocol Last Admin: 10/10/25 12:31 Dose: 0.5 mg/min, 16.67 mls/hr Dextrose (D5w) 500 mls @ 0 mls/hr IV ONCE PRN; Protocol PRN Reason: Adult Acute Hypoglycemia Prot Dextrose (D10w) 125 mls @ 750 mls/hr IV PRN PRN; Protocol PRN Reason: Adult Acute Hypoglycemia Nursing Protocol Last Infusion: 10/09/25 20:22 Dose: Infused Dextrose (D10w) 250 mls @ 1,000 mls/hr IV PRN PRN; Protocol PRN Reason: Adult Acute Hypoglycemia Nursing Protocol Propofol (Diprivan) 1,000 mg in 100 mls @ 0 mls/hr IV .Q0M COUNTS INCLUDE 234 BEDS AT THE [facility]; Protocol Last Titration: 10/10/25 06:12 Dose: Infused Norepinephrine Bitartrate (Levophed) 4 mg in 250 mls @ 0 mls/hr IV .Q0M COUNTS INCLUDE 234 BEDS AT THE [facility]; Protocol Last Titration: 10/10/25 06:12 Dose: Infused Dexmedetomidine/Sodium Chloride (Precedex) 400 mcg in 100 mls @ 0 mls/hr IV .Q0M MAKENZIE; Protocol Last Titration: 10/11/25 06:00 Dose: 0.3 mcg/kg/hr, 3.98 mls/hr Fentanyl (Sublimaze) 1,000 mcg in 100 mls @ 0 mls/hr IV .Q0M COUNTS INCLUDE 234 BEDS AT THE [facility]; Protocol Last Titration: 10/10/25 11:31 Dose: Infused Insulin Human Lispro (Insulin Lispro 100 Unit/1 Ml) 0 unit SUBCUT TIDWM COUNTS INCLUDE 234 BEDS AT THE [facility]; Protocol Last Admin: 10/11/25 08:43 Dose: 10 unit Lanolin (Lanolin Oint 7 Gm) 1 applic TOPICAL PRN PRN PRN Reason: DRY LIPS Last Admin: 10/10/25 09:23 Dose: 1 applic Lidocaine (Lidocaine 5% Patch) 1 patch TOPICAL [id number] COUNTS INCLUDE 234 BEDS AT THE [facility] Last Admin: 10/11/25 04:51 Dose: 1 patch Lorazepam (Lorazepam 0.5 Mg Tablet) 0.5 mg PO TID COUNTS INCLUDE 234 BEDS AT THE [facility] Last Admin: 10/11/25 04:51 Dose: 0.5 mg Methylprednisolone Sodium Succinate (Methylprednisolone Sod Succ 40 Mg/Ml Inj) 40 mg IVP Q8H COUNTS INCLUDE 234 BEDS AT THE [facility] Last Admin: 10/11/25 04:51 Dose: 40 mg Naloxone HCl (Naloxone 0.4 Mg/Ml Sdv) 0.1 mg IVP Q2M PRN PRN Reason: OPIATERV Ondansetron HCl (Ondansetron 2 Mg/Ml Sdv 2 Ml) 4 mg IVP Q8H PRN PRN Reason: vomiting, or N/V if npo Last Admin: 10/06/25 22:50 Dose: 4 mg Oxycodone HCl (Oxycodone 5 Mg Ir Tab/Cap) 5 mg PO TID COUNTS INCLUDE 234 BEDS AT THE [facility] Last Admin: 10/11/25 04:51 Dose: 5 mg Pantoprazole Sodium (Pantoprazole 40 Mg Sdv) 40 mg IVP Q24H COUNTS INCLUDE 234 BEDS AT THE [facility] Last Admin: 10/10/25 20:39 Dose: 40 mg Trazodone HCl (Trazodone 50 Mg Tablet) 75 mg PO BEDTIME COUNTS INCLUDE 234 BEDS AT THE [facility] Last Admin: 10/10/25 20:40 Dose: 75 mg Vitals/I&O/Wt Last Vital Signs Temp 98.5 F 10/11/25 09:00 Pulse 93 10/11/25 09:00 Resp 15 10/11/25 09:00 BP 103/47 10/11/25 09:00 Pulse Ox 96 10/11/25 09:00 O2 Del Method Nasal Cannula 10/11/25 09:00 O2 Flow Rate 2 10/11/25 09:00 FiO2 30 10/11/25 03:52 10/10/25 10/11/25 10/11/25 22:59 06:59 14:59 Intake Total 143.138 / 737.235 73.871 / 811.106 Output Total 600 / 600 Balance 143.138 / 737.235 -526.129 / 211.106 Weight last 48 hrs Weight 136 lb 3.931 oz Weight 136 lb 10.986 oz Physical Exam 2 Narrative: GENERAL: The patient is drowsy but responds to questions appropriately. Moving all extremities. HEENT: No significant pallor, icterus or lymphadenopathy.Oral cavity: There are no mucous membrane lesions. NECK: Trachea appears to be central. No masses noted. No JVD or thyromegaly appreciated. RESPIRATORY: Chest is symmetrical. No intercostals muscle retraction or any accessory muscle activation. There is no chest wall tenderness. Breath sounds are heard bilaterally. No rales or rhonchi heard. No evidence of any consolidation. BREASTS: Deferred. HEART: The heart sounds are normal. No S3 or S4. No significant murmurs. No pericardial rub ABDOMEN: No vessel pulsations or distention. No tenderness. No organomegaly appreciated. Bowel sounds are normally heard. : Deferred. RECTAL: Deferred. LYMPHATIC: No lymphadenopathy noted in the neck. EXTREMITIES: No edema or cyanosis. No clubbing. MUSCULOSKELETAL: No acute joint deformities or swelling SKIN: There are no significant rashes or ecchymosis NEUROPSYCHIATRIC: The patient is alert and oriented x3. Appears to be in a good mood. No tremors or rigidity noted. Urinary Catheter Management: Jefferson: Cath Placed During This Visit: yes Reason for Continuing Indwelling Catheter: Accurate Measurement of Urinary Output in Critically Ill Patients Urinary Catheter Date of Insertion: 10/06/25 Urinary Catheter Time of Insertion: 17:50 Data 10/11/25 02:51 10/11/25 02:51 Other Labs: Laboratory Last Values WBC 15.63 10^3/uL (3.29-11.43) H 10/11/25 02:51 RBC 3.18 10^6/uL (3.85-5.65) L 10/11/25 02:51 Hgb 8.90 g/dL (11.27-16.99) L 10/11/25 02:51 Hct 28.9 % (36-47) L 10/11/25 02:51 MCV 90.9 fl (85-98) 10/11/25 02:51 MCH 28.0 pg (27-33) 10/11/25 02:51 MCHC 30.8 g/dL (30-55) 10/11/25 02:51 RDW 16.8 % (12.1-15.1) H 10/11/25 02:51 Plt Count 217 10^3/cmm (157-399) 10/11/25 02:51 MPV 10.0 fL (7.4-10.4) 10/11/25 02:51 Neut % (Auto) 94.8 % 10/11/25 02:51 Lymph % (Auto) 2.0 % 10/11/25 02:51 Nance % (Auto) 1.9 % 10/11/25 02:51 Eos % (Auto) 0.0 % 10/11/25 02:51 Baso % (Auto) 0.1 % 10/11/25 02:51 Neut # (Auto) 14.81 10^3/uL (1.8-7.7) H 10/11/25 02:51 Lymph # (Auto) 0.3 10^3/uL (0.8-4.8) L 10/11/25 02:51 Nance # (Auto) 0.3 10^3/uL (0.2-0.9) 10/11/25 02:51 Eos # (Auto) 0.0 10^3/uL (0.0-0.8) 10/11/25 02:51 Baso # (Auto) 0.0 10^3/uL (0.0-0.1) 10/11/25 02:51 Nucleated RBC % (auto) 0 % 10/11/25 02:51 Nucleated RBCs # 0.0 /100WBC 10/11/25 02:51 PT 14.50 SECONDS (12.1-14.9) 10/10/25 02:52 INR 1.06 (0.8-1.2) 10/10/25 02:52 APTT 29.9 SECONDS (23.9-36.7) 10/06/25 16:21 Specimen Type Arterial 10/11/25 04:22 Sample Site Brachial, right 10/11/25 04:22 ABG pH 7.30 (7.35-7.45) L 10/11/25 04:22 ABG pCO2 43.2 mmHg (35-45) 10/11/25 04:22 ABG pO2 91.7 mmHg (80.0-100.0) 10/11/25 04:22 ABG PO2/FiO2 Ratio 305 10/11/25 04:22 ABG HCO3 21.2 mmol/L (22-26) L 10/11/25 04:22 ABG O2 Saturation 97.6 10/10/25 10:40 ABG Base Excess -5.0 mmol/L (-2.0-2.0) L 10/11/25 04:22 Bob Test N/a 10/11/25 04:22 A-a O2 Gradient 18.5 mmHg (5-10) H 10/10/25 10:40 Hematocrit 28.8 % (37-47) L 10/11/25 04:22 Hgb O2 Saturation 95.4 % (95-100) 10/10/25 10:40 Carboxyhemoglobin 1.0 %THgb (0.4-20.1) 10/10/25 10:40 Methemoglobin 1.2 % (0.4-1.5) 10/10/25 10:40 Total Hemoglobin 9.8 g/dL (12-16) L 10/10/25 10:40 Sodium 138.0 mmol/L (131-143) 10/10/25 10:40 Potassium 4.3 mmol/L (3.5-5.0) 10/10/25 10:40 Glucose 188.0 mg/dL (70-115) H 10/10/25 10:40 Ionized Calcium 1.2 mmol/L (1.1-1.4) 10/10/25 10:40 O2 Delivery Device Bipap 10/11/25 04:22 FiO2 30.0 % 10/11/25 04:22 Tidal Volume 0.40 10/10/25 04:55 PEEP 5.0 cmH20 10/10/25 10:40 Nurse Practitioner ID Felipe 10/11/25 04:22 Crit Value Read Back Cartr 10/07/25 14:40 Blood Gas Notified Time 1510 10/07/25 14:40 Sodium 138 mmol/L (136-145) 10/11/25 02:51 Potassium 4.5 mmol/L (3.5-5.1) 10/11/25 02:51 Chloride 100 mmol/L (98-107) 10/11/25 02:51 Carbon Dioxide 23 mmol/L (22-29) 10/11/25 02:51 Anion Gap 19.5 (5-19) H 10/11/25 02:51 BUN 57 mg/dL (8-23) H 10/11/25 02:51 Creatinine 2.1 mg/dL (0.5-0.9) H 10/11/25 02:51 GFR Calculation Not Reportable 10/11/25 02:51 Glucose 214 mg/dL (65-115) H 10/11/25 02:51 POC Glucose 262 mg/dL (70-110) H 10/11/25 07:29 Estimat Average Glucose 146 10/06/25 16:21 Hemoglobin A1c 6.7 % (4.0-6.0) H 10/06/25 16:21 Calculated Osmolality 308 mOsm/kg (285-295) H 10/11/25 02:51 Lactic Acid 1.3 mmol/L (0.5-2.2) 10/06/25 16:21 Lactate 1.2 mmol/L (0.5-2.2) 10/10/25 02:52 Calcium 8.5 mg/dL (8.5-10.5) 10/11/25 02:51 Phosphorus 4.7 mg/dL (2.5-4.5) H 10/10/25 02:52 Phosphorus Cancelled 10/10/25 02:52 Magnesium 2.1 mg/dL (1.7-2.3) 10/10/25 02:52 Magnesium Cancelled 10/10/25 02:52 Total Bilirubin 0.3 mg/dL (0.15-1.2) 10/11/25 02:51 AST 54 U/L (0-32) H 10/11/25 02:51 ALT 28 U/L (0-33) 10/11/25 02:51 Alkaline Phosphatase 59 U/L (35-105) 10/11/25 02:51 Creatine Kinase 40 U/L (26-192) 10/06/25 16:21 Troponin T Baseline 31 ng/L (0-10) H 10/07/25 18:42 Troponin T 120 Minute 26.53 ng/L (0-10) H 10/07/25 21:40 Delta Troponin T -4.47 ABS# (0-10) L 10/07/25 21:40 Troponin T Hi Sens 6Hr 26.37 ng/L (0-10) H 10/08/25 00:45 Troponin T Hi Sens 6Hr Delta -4.63 ng/L (0-12) L 10/08/25 00:45 C-Reactive Protein 34.4 mg/L (0.0-4.9) H 10/10/25 02:52 C-Reactive Protein Cancelled 10/10/25 02:52 NT-Pro-B Natriuret Pep 7733 pg/mL (0-450) H 10/10/25 02:52 NT-Pro-B Natriuret Pep Cancelled 10/10/25 02:52 Total Protein 5.8 g/dL (6.6-8.7) L 10/11/25 02:51 Albumin 3.2 g/dL (3.5-5.2) L 10/11/25 02:51 Globulin 2.6 g/dL (1.3-4.6) 10/11/25 02:51 Triglycerides 144 mg/dL (0-150) 10/06/25 16:21 Cholesterol 298 mg/dL (0-200) H 10/06/25 16:21 LDL Cholesterol, Calc 207 mg/dL (50-129) H 10/06/25 16:21 HDL Cholesterol 62 mg/dL (60-100) 10/06/25 16:21 LDL/HDL Ratio 3.34 RATIO (0.00-3.22) H 10/06/25 16:21 Cholesterol/HDL Ratio 4.81 mg/dL (0.0-4.40) H 10/06/25 16:21 Procalcitonin 1.24 ng/mL (0-0.5) H 10/10/25 02:52 Procalcitonin Cancelled 10/10/25 02:52 TSH 2.89 uIU/mL (0.27-4.20) 10/06/25 16:21 Urine Color Yellow (Yellow) 10/06/25 16:35 Urine Appearance Clear (CLEAR) 10/06/25 16:35 Urine pH 5.5 (5-7) 10/06/25 16:35 Ur Specific [place] 1.017 (1.005-1.030) 10/06/25 16:35 Urine Protein Trace (Negative) A 10/06/25 16:35 Urine Glucose (UA) Negative (Normal) 10/06/25 16:35 Urine Ketones Negative (Negative) 10/06/25 16:35 Urine Blood Negative (Negative) 10/06/25 16:35 Urine Nitrate Negative (Negative) 10/06/25 16:35 Urine Bilirubin Negative (Negative) 10/06/25 16:35 Urine Urobilinogen 0.2 mg/dL (Negative) 10/06/25 16:35 Ur Leukocyte Esterase Negative (Negative) 10/06/25 16:35 Urine RBC 0-2 /hpf (0-2) 10/06/25 16:35 Urine WBC 0-5 /hpf (0-5) 10/06/25 16:35 Ur Squamous Epith Cells 0-5 /hpf (0-5) 10/06/25 16:35 Amorphous Sediment Not Reportable 10/06/25 16:35 Urine Bacteria None seen /hpf (NONE) 10/06/25 16:35 Hyaline Casts 20.27 /lpf 10/06/25 16:35 Vancomycin Trough 9.8 ug/mL (10-15) L 10/10/25 09:38 Random Vancomycin 12.0 ug/mL (20.0-40.0) L 10/10/25 02:52 Digoxin 1.9 ng/mL (0.6-1.2) H 10/10/25 02:52 Influenza A (PCR) Negative (Negative) 10/07/25 18:38 Influenza Type B (PCR) Negative (Negative) 10/07/25 18:38 RSV (PCR) Negative (Negative) 10/07/25 18:38 SARS-CoV-2 (PCR) Negative (Negative) 10/07/25 18:38 Blood Type O Positive 10/07/25 09:54 Rho(D) Type Rh positive 10/07/25 09:54 Antibody Screen Negative 10/07/25 09:54 Crossmatch See Detail 10/07/25 09:54 A&P Assessment and plan 1. Atrial fibrillation with rapid ventricular response: This patient is known to have chronic atrial fibrillation. Currently the heart rate is under control. Diarrhea amiodarone may be discontinued after finishing the current infusion. May be started on amiodarone 400 mg p.o. daily. The goal is to gradually take her off the amiodarone, if at all possible because of her bad lung disease. 2. Congestive heart failure, unspecified HF chronicity, unspecified heart failure type: Patient is LV ejection fraction by echocardiogram is slightly depressed. Because of the technical difficulty, the ejection fraction estimation is very misleading. The views obtained were mostly subcostal. The heart failure seems to be compensated. May continue on the current pressures. 3. Primary hypertension: The blood pressure is in the normal range at this time. Continue on the current medication 4. Mixed hyperlipidemia: May continue on the current management. Follow-up evaluation as per the primary care 5. Type 2 diabetes mellitus without complication, with long-term current use of insulin: Aggressive control would be appropriate. Continue on the current management. 6. Stage 3a chronic kidney disease: The chronic kidney disease also could be a contributing factor. The BUN and creatinine level seems to be stable 7. Sepsis with acute organ dysfunction and septic shock, due to unspecified organism, unspecified organ dysfunction type: Patient is treated with empiric antibiotics. She is off the vasopressors.. Continue with all current measures. Plan: Reviewed the medical records Discussed with the clinical staff Based on the patient's clinical progress, further management decisions will be made PDMP PDMP Reviewed: Not Reviewed Attestations 2 Medical Necessity Statement*: Deferred to the primary Coding Level of Care Code 63943 Diagnoses Atrial fibrillation with rapid ventricular response I48.91 Congestive heart failure, unspecified HF chronicity, unspecified heart failure type I50.9 Heart failure chronicity: unspecified Heart failure type: unspecified Primary hypertension I10 Hypertension type: primary hypertension Mixed hyperlipidemia E78.2 Hyperlipidemia type: mixed hyperlipidemia Type 2 diabetes mellitus without complication, with long-term current use of insulin E11.9; Z79.4 Diabetes mellitus complication status: without complication 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
--- NOTE | 2025-10-11 11:30 | PC.NURSE ---
Pt OOB to chair. Maximum assist x 2 required. Pt grabbing at things I can't . She did don't stand straight up, persisted in sticking her rear end out to sit. Family at bedside. Daughter interrupted safety instructions to pt to encourage her mother repeatedly.
--- NOTE | 2025-10-11 11:48 | PM.PN ---
Subjective Subjective: Patient remains extubated currently sleeping. Per nurse she is doing well Vitals/I&O/Wt Last Vital Signs Temp 98.5 F 10/11/25 09:00 Pulse 85 10/11/25 11:07 Resp 18 10/11/25 11:00 BP 107/59 10/11/25 10:00 Pulse Ox 99 10/11/25 11:00 O2 Del Method Nasal Cannula 10/11/25 11:00 O2 Flow Rate 2 10/11/25 11:00 FiO2 30 10/11/25 03:52 10/10/25 10/11/25 10/11/25 22:59 06:59 14:59 Intake Total 143.138 / 737.235 73.871 / 811.106 15.323 / 15.323 Output Total 600 / 600 Balance 143.138 / 737.235 -526.129 / 211.106 15.323 / 15.323 Weight last 48 hrs Weight 136 lb 3.931 oz Weight 136 lb 10.986 oz Physical Exam Narrative: Resting comfortably in bed Urinary Catheter Management: Jefferson: Cath Placed During This Visit: yes Reason for Continuing Indwelling Catheter: Accurate Measurement of Urinary Output in Critically Ill Patients Urinary Catheter Date of Insertion: 10/06/25 Urinary Catheter Time of Insertion: 17:50 Data 10/11/25 02:51 10/11/25 02:51 A&P Assessment and plan 1. Closed hip fracture: Status post hip hemiarthroplasty of the left PDMP PDMP Reviewed: Not Reviewed Attestations Medical Necessity Statement*: Per primary service Coding Level of Care Code Acute Code for [facility] Fwd Diagnoses Closed hip fracture S72.009A
--- NOTE | 2025-10-11 14:06 | PC.NURSE ---
Pt back to bed. Pt I can't . She kept her knees bent and rear end out, barely able to pivot transfer with maximum assist with 2. Pt positioned to left side, resting soundly with eyes closed. Daughters debbie in room, Kacy fretted, patted and fluttered around Mom , wakened her asking her is she wanted to lie on her side, need to be repositioned, etc. Encouraged family to let pt rest as she has not had 5 minutes of rest this am. After repeating this several times, daughter calmed somewhat. Daughters and pts left to get lunch.
--- NOTE | 2025-10-11 16:40 | PC.NURSE ---
Pt wanted to get out of bed. To chair. Maximum assist x2. Pt did not even try to bear her own weight this time.
--- NOTE | 2025-10-11 16:49 | PC.NURSE ---
Lidocaine patch on left lateral abdomen removed per order.
--- NOTE | 2025-10-11 19:18 | PC.NURSE ---
Pt back to bed. SHe is very laert at this time. Still maximum assist with 2 on transfer but she participated ote this time.
[2025-10-11] MEDS: methylPREDNISolone sod succ 40 mg/mL INJ 20 MG IVP (20:05)
[2025-10-11] MEDS: pantoprazole 40 mg SDV IVP (20:06)
[2025-10-11] MEDS: dexmedeTOMIDine 0.9 % NaCL 400 MCG/100 ML PREMIX IV (20:58)
--- NOTE | 2025-10-11 21:07 | PC.NURSE ---
Patient very agitated and making repeated attempts to remove bipap. Patient has had PM meds and PRN medications for agitation. Restarted precedex at 0.1 to see if patients agitation to keep bipap on.
--- NOTE | 2025-10-11 21:28 | PC.NURSE ---
Numerous attempts to reposition patients pulse oximetry. RT notified of potential to need forehead probe. Currently spot checking patients O2. It is 95% on bipap
[2025-10-12] VITALS (74 sets, daily range): BP systolic 110–186; BP diastolic 52–114; PULSE 60–139; RESP 15–24; TEMP 36.4–37.4; O2SAT 92–100
[2025-10-12 04:18] LABS: Hematocrit 27.4 % (36-47); Hemoglobin 8.30 g/dL (11.27-16.99); Mean Corpuscular HGB Conc 30.3 g/dL (30-55); Mean Corpuscular Hemoglobin 27.6 pg (27-33); Mean Corpuscular Volume 91.0 fl (85-98); Nucleated Red Blood Cells % 0 %; Platelet Count 214 10^3/cmm (157-399); Red Blood Count 3.01 10^6/uL (3.85-5.65); White Blood Count 13.19 10^3/uL (3.29-11.43)
[2025-10-12 04:43] LABS: Digoxin 1.3 ng/mL (0.6-1.2)
[2025-10-12] MEDS: methylPREDNISolone sod succ 40 mg/mL INJ 20 MG IVP ×2 (04:43→11:20)
[2025-10-12] MEDS: oxyCODONE 5 mg IR Tab/Cap PO ×3 (04:44→20:55)
[2025-10-12 04:46] LABS: Alanine Aminotransferase 30 U/L (0-33); Albumin Level 3.4 g/dL (3.5-5.2); Alkaline Phosphatase 56 U/L (35-105); Anion Gap 18.4 (5-19); Aspartate Amino Transferase 53 U/L (0-32); Blood Urea Nitrogen 67 mg/dL (8-23); Calcium 8.7 mg/dL (8.5-10.5); Carbon Dioxide 24 mmol/L (22-29); Chloride 100 mmol/L (98-107); Globulin 2.1 g/dL (1.3-4.6); Glucose 280 mg/dL (65-115); Osmolality Calculated 315 mOsm/kg (285-295); Potassium 4.4 mmol/L (3.5-5.1); Sodium 138 mmol/L (136-145); Total Protein 5.5 g/dL (6.6-8.7)
--- NOTE | 2025-10-12 08:00 | PC.NURSE ---
Peripheral IV right forearm: removed intact. Pressure held no bleeding noted. Gauze and tape applied. This nurse went around bed to the other side, looked at right forearm, IV site bleeding subq. large purple area noted. applied more gauze and wrapped with Coban. Pt tolerated well.
[2025-10-12 08:03] LABS: Ferritin 78 ng/mL (15-150); Iron 29 ug/dL (37-145); Total Iron Binding Capacity 187 mcg/dl; Unsaturated Iron Binding 158 ug/dL (112-347)
--- NOTE | 2025-10-12 08:15 | PC.NURSE ---
Pt up to chair with max assist x 2. She is much more alert and cooperative tdoay. But still does poorly bearing her weight and standing straight. She prefers to lean forward.
--- NOTE | 2025-10-12 08:28 | PM.PN ---
Documented by User: Alyce Dickinson, COAL DELIVERER 10/12/25 09:31 Subjective Subjective: She seems to be improving slowly. Remains in atrial fibrillation with controlled ventricular rate. She is getting up to the chair. Vitals/I&O/Wt Last Vital Signs Temp 97.5 F L 10/12/25 07:30 Pulse 97 10/12/25 07:45 Resp 16 10/12/25 07:31 BP 129/53 10/12/25 07:45 Pulse Ox 100 10/12/25 07:45 O2 Del Method Nasal Cannula 10/12/25 07:45 O2 Flow Rate 2 10/12/25 07:45 FiO2 2 10/12/25 07:31 10/11/25 10/12/25 10/12/25 22:59 06:59 14:59 Intake Total 447.168 / 711.529 41.017 / 711.529 Output Total 225 / 625 400 / 625 Balance 222.168 / 86.529 -358.983 / 86.529 Weight last 48 hrs Weight 136 lb 7.458 oz Weight 136 lb 3.931 oz Physical Exam Const: COMMON NORMALS: no acute distress and patient oriented x3 Chest: COMMONS NORMALS: normal inspection of the chest and normal palpation of entire chest wall CHEST: Yes Symmetrical chest wall rise Resp: COMMON NORMALS: normal respiratory effort, No retractions and No use of accessory muscles EFFORT & INSPECTION: Yes symmetric chest movement AUSCULTATION: rales, wheezes right upper and diminished lung sounds on the left in the lower lung mejia Cardio: COMMON NORMALS: S1 normal heart sound present, S2 normal heart sound present, No gallops present (Cardio), No clicks present (Cardio), No murmurs present (Cardio) and No rub (Cardio) RHYTHM: abnormal rhythm irregularly irregular HEART SOUNDS: S1 normal heart sound present and S2 normal heart sound present PERIPHERAL PULSES: radial pulses present, posterior tibial pulses present and dorsalis pedis present Neuro: COMMON NORMALS: patient oriented x3 and moves all extremities Psych: COMMON NORMALS: mental status grossly normal and cooperative Urinary Catheter Management: Jefferson: Cath Placed During This Visit: yes Reason for Continuing Indwelling Catheter: Accurate Measurement of Urinary Output in Critically Ill Patients Urinary Catheter Date of Insertion: 10/06/25 Urinary Catheter Time of Insertion: 17:50 Data 10/13/25 05:54 10/13/25 05:54 A&P Assessment and plan 1. Congestive heart failure, unspecified HF chronicity, unspecified heart failure type: 2. Primary hypertension: 3. Atrial fibrillation: 4. Type 2 diabetes mellitus without complication, with long-term current use of insulin: 5. Stage 3a chronic kidney disease: 6. Closed left hip fracture: 7. COPD (chronic obstructive pulmonary disease): Plan: If she maintains good rate control, will try to restart digoxin if her level is better tomorrow. Continue amiodarone 400mg daily. PDMP PDMP Reviewed: Not Reviewed Attestations Medical Necessity Statement*: per hospitalist Coding Level of Care Code 84715 Diagnoses Congestive heart failure, unspecified HF chronicity, unspecified heart failure type I50.9 Heart failure chronicity: unspecified Heart failure type: unspecified Primary hypertension I10 Hypertension type: primary hypertension Atrial fibrillation I48.91 Type 2 diabetes mellitus without complication, with long-term current use of insulin E11.9; Z79.4 Diabetes mellitus complication status: without complication Diabetes mellitus detention insulin use: with detention use Stage 3a chronic kidney disease N18.31 Chronic kidney disease stage 3 subtype: stage 3a (GFR 45-59) Closed left hip fracture S72.002A COPD (chronic obstructive pulmonary disease) J44.9 Time Spent (min) 10 Documented by User: Armain Sanders MD 10/13/25 19:18 Physical Exam Urinary Catheter Management: Jefferson: Cath Placed During This Visit: yes Data 10/13/25 05:54 10/13/25 05:54 A&P Assessment and plan 1. Congestive heart failure, unspecified HF chronicity, unspecified heart failure type: 2. Primary hypertension: 3. Atrial fibrillation: 4. Type 2 diabetes mellitus without complication, with long-term current use of insulin: 5. Stage 3a chronic kidney disease: 6. Closed left hip fracture: 7. COPD (chronic obstructive pulmonary disease): Plan: Clinically she is more stable from cardiac point of view. She remains in the atrial fibrillation with better rate control. Plan is to restart digoxin and metoprolol for atrial fibrillation rate control and to leave her on amiodarone for now, the dose of which will be adjusted according to atrial fibrillation rate control. PDMP PDMP Reviewed: Not Reviewed Coding Level of Care Code 74179 Diagnoses Congestive heart failure, unspecified HF chronicity, unspecified heart failure type I50.9 Heart failure chronicity: unspecified Heart failure type: unspecified Primary hypertension I10 Hypertension type: primary hypertension Atrial fibrillation I48.91 Type 2 diabetes mellitus without complication, with long-term current use of insulin E11.9; Z79.4 Diabetes mellitus complication status: without complication Diabetes mellitus long wall mining machine helper insulin use: with long wall mining machine helper use Stage 3a chronic kidney disease N18.31 Chronic kidney disease stage 3 subtype: stage 3a (GFR 45-59) Closed left hip fracture S72.002A COPD (chronic obstructive pulmonary disease) J44.9 Time Spent (min) 10
[2025-10-12] MEDS: heparin 5,000 unit/mL INJ 1 mL 5000 UNIT SUBCUT ×2 (08:45→20:56)
--- NOTE | 2025-10-12 08:59 | XRR_ITS ---
PROCEDURE INFORMATION: Exam: XR Chest Exam date and time: 10/12/2025 10:32 AM Age: 79 years old Clinical indication: Condition or disease; Lung condition and disease; Other: Pulmonary infiltrates TECHNIQUE: Imaging protocol: Radiologic exam of the chest. Views: 1 view. COMPARISON: CR (CHEST, ) 10/11/2025 7:28 AM FINDINGS: Lungs: Emphysematous COPD. Bibasilar atelectasis or infiltrate plus small effusions. The right-sided infiltrate has improved, the left slightly worse. Mild interstitial prominence. Pleural spaces: Unremarkable. No pleural effusion. No pneumothorax. Heart/Mediastinum: Unremarkable. No cardiomegaly. Bones/joints: Unremarkable. XR/XR chest 1V portable [id number] IMPRESSION: Slight waxing and waning pulmonary infiltrates.
--- NOTE | 2025-10-12 10:00 | PC.NURSE ---
right Central Line removed intact. Hemostatis obtained. Pt tolerated very well. Securing stitches removed prior.
--- NOTE | 2025-10-12 13:13 | P.PN_ITS ---
Subjective 2 Subjective: Deidra De La Torre is a 79 year old female with past medical history of multiple sclerosis, atrial fibrillation, on anticoagulation therapy, history of congestive heart failure, history of seizure, history of dementia comes into the hospital complaining of left hip pain initially on 10/06/2025. Was also found to be in A-fib with RVR and placed on amnio drip. Taken to surgery for hip fracture repair, started having difficulty bagging and ventilating. Chest x-ray in ICU taken showed large left-sided pneumothorax. Plan to pressures at 32 on the ventilator. Has a 7.0 tube was a difficult airway per report. Was having difficulty oxygenating and ventilating postoperatively. In 10/08/2025 On ventilator tolerating well Precedex at 0.2 amiodarone 0.5 levo at 4 10/09/25 On vent tolerating well. on precedex and fentanyl gtts at 75. in 40% fio2 on vent. 10/10/2025 Tolerating SBT well on PS 10 and 5, FiO2 40%. Only on 0.9 of Precedex this morning waking up and following commands. Good cuff leak. 10/12/2025 Patient sitting up in chair, no signs of distress noted. Vitals/I&O/Wt Last Vital Signs Temp 97.5 F L 10/12/25 07:30 Pulse 100 10/12/25 11:05 Resp 16 10/12/25 11:00 BP 117/68 10/12/25 09:15 Pulse Ox 97 10/12/25 11:00 O2 Del Method Nasal Cannula 10/12/25 11:00 O2 Flow Rate 2 10/12/25 11:00 FiO2 30 10/12/25 03:38 10/11/25 10/12/25 10/12/25 22:59 06:59 14:59 Intake Total 447.168 / 670.512 41.017 / 711.529 100 / 100 Output Total 225 / 225 400 / 625 Balance 222.168 / 445.512 -358.983 / 86.529 100 / 100 Weight last 48 hrs Weight 136 lb 7.458 oz Weight 136 lb 3.931 oz Physical Exam 2 Urinary Catheter Management: Jefferson: Cath Placed During This Visit: yes Reason for Continuing Indwelling Catheter: Accurate Measurement of Urinary Output in Critically Ill Patients Urinary Catheter Date of Insertion: 10/06/25 Urinary Catheter Time of Insertion: 17:50 Data 10/12/25 03:59 10/12/25 03:59 A&P Assessment and plan 1. Pneumothorax with hemothorax, traumatic: 2. COPD (chronic obstructive pulmonary disease): Plan: # Acute hypoxic hypercarbic hypoxic and hypercapnic -Extubated 10/10/2025 -Reviewed ABG 10/10/2025 showing pH of 7.37/pCO2 42/pO2 225 PF Bronchopulmonary etiology therapy -Wean off O2 as tolerated keep O2 sat between 88 to 92% # critical airway # Left-sided pneumothorax Reviewed chest x-ray from this morning and compared to last night 10/10/2025- independently interpreted images. Has a large left-sided lower lobe bleb as confirmed on CT chest from 10/07/2025. Pigtail catheter working well. On waterseal reimaged on chest x-ray no pneumo seen today 10/10/2025 Chest x-ray reviewed 10/12/2025-no recurrence of left-sided pneumonia noted Avoid BiPAP. Instructed nurse to discontinue it. Also discussed with family not to use her home trilogy ventilator at this time. # Closed left femur hip fracture status post left hemiarthroplasty 10/07/2025 Per Ortho appreciate help # A-fib with RVR On Amio p.o. Digoxin given Reviewed cardiology note. Appreciate help # KYLE on CKD stage III -Creatinine 2.3, baseline creatinine: 0.6-labs reviewed 10/08/2025. Avoid nephrotoxic agents - Give her dose of Lasix. # Type 2 diabetes insulin sliding scale medium. Avoid hypoglycemia. Maintain blood sugars between 140-180. Dextrose drip if needed to maintain blood sugars above 70 # End-stage COPD # Chronic respiratory failure hypoxic and hypercapnic previously on home Trilogy vent-not using currently # Probable sepsis-ruled out No symptoms no cough no shortness of breath currently. White count trending down. Most most likely is due to steroids. Would discontinue at this time and start prednisone 20 mg daily taper over 3 days. Labs reviewed last WBC count from today was 13.6 # Chronic congestive heart failure -As needed Lasix # Probable smoker -Observed for withdrawals mainly nicotine patch # Hyperglycemia- # Sedation # Nutrition-advance as tolerated # DVT GI prophylaxis-SCDs and famotidine. # Goals of care-d per primary team. Discussed with at bedside 10/10/2025-she wants everything done including reintubation if needed as well as tracheostomy as if needed. I discussed with staff at bedside. # CODE STATUS- FULL # Disposition-okay to transfer to floor Needs follow-up with pulmonary postdischarge 2 to 3 weeks from now Will sign off please call again if needed Medical decision making level-moderate Moderate MDM includes number and complexity of problems actively addressed during encounter, amount and/or complexity of data reviewed/ordered [ previous or external records, resulted lab(s)/test(s), ordered lab(s)/test(s), independent historian, independent test interpretation and other healthcare professional discussion] and described risk of complication, morbidity or mortality of management as documented This documentation was created by [employer] interpreter deaf software (known for inherent interpreter deaf error). Every effort was made to assure accuracy of interpreter deaf. Any obvious errors or omissions should be clarified with the author of the document Telemedicine Consent Patient seen today via Telemedicine by agreement and consent of patient.? Telemedicine technology used during the visit includes audio and, as available, review of images.? The patient encounter is appropriate and reasonable under the circumstances given the patient?s particular presentation at this time.? The patient has been advised of the potential risks and limitations of this mode of treatment (including but not limited to the absence of in-person examination) and has agreed to be treated in a remote fashion in spite of them.? Any, and all, of the patient?s/patient?s family?s questions on this issue have been answered and I have made no promises or guarantees to the patient. PDMP PDMP Reviewed: Not Reviewed Attestations 2 Medical Necessity Statement*: Okay to moved to floor Coding Level of Care Code 08045 Diagnoses Pneumothorax with hemothorax, traumatic S27.2XXA COPD (chronic obstructive pulmonary disease) J44.9
--- NOTE | 2025-10-12 13:45 | PC.NURSE ---
Pt back to bed. Pt at bedside. Sit to stand, gait belt utilized. Pt immediately closed eyes and started resting.
--- NOTE | 2025-10-12 17:10 | PC.NURSE ---
Pt back up to chair for evening meal and speech therapy. Sit to stand, gait belt , 2 assist with maximum assist. Pt persisted in sticking her rear end out and leaning her head over bar of sit to stand, making transfer more difficult.
--- NOTE | 2025-10-12 17:26 | PM.PN ---
Subjective Subjective: She states overall she is doing well/better in terms of her breathing, although otherwise not feeling great this morning. Vitals/I&O/Wt Last Vital Signs Temp 97.5 F L 10/12/25 07:30 Pulse 107 H 10/12/25 15:32 Resp 16 10/12/25 15:24 BP 117/68 10/12/25 09:15 Pulse Ox 94 10/12/25 15:24 O2 Del Method Nasal Cannula 10/12/25 15:24 O2 Flow Rate 2 10/12/25 15:24 FiO2 30 10/12/25 03:38 10/12/25 10/12/25 10/12/25 06:59 14:59 22:59 Intake Total 41.017 / 711.529 100 / 100 Output Total 400 / 625 Balance -358.983 / 86.529 100 / 100 Weight last 48 hrs Weight 61.9 kg Weight 61.8 kg Physical Exam Const: ORIENTATION/CONSCIOUSNESS: Yes awake HENMT: COMMON NORMALS: oropharynx normal Neck/C-Spine: COMMON NORMALS: no JVD OTHER: Right IJ Resp: COMMON NORMALS: normal respiratory effort and clear to auscultation bilaterally AUSCULTATION: clear to auscultation bilaterally Cardio: COMMON NORMALS: no JVD, S1 normal heart sound present, S2 normal heart sound present and No murmurs present (Cardio) RATE: tachycardic RHYTHM: abnormal rhythm irregularly irregular HEART SOUNDS: S1 normal heart sound present and S2 normal heart sound present GI: COMMON NORMALS: Normal to inspection, nondistended, normoactive bowel sounds present, Soft to palpation and non-tender PALPATION: Yes Soft to palpation Extremity: COMMON NORMALS: no joint enlargement and no pedal edema Neuro: COMMON NORMALS: moves all extremities Skin: COMMON NORMALS: no rashes or lesions noted GENERAL SKIN EXAM: no rashes or lesions noted Urinary Catheter Management: Jefferson: Cath Placed During This Visit: yes Reason for Continuing Indwelling Catheter: Accurate Measurement of Urinary Output in Critically Ill Patients Urinary Catheter Date of Insertion: 10/06/25 Urinary Catheter Time of Insertion: 17:50 Data 10/12/25 03:59 10/12/25 03:59 A&P Assessment and plan 1. Type 2 diabetes mellitus without complication, with long-term current use of insulin: 2. Stage 3a chronic kidney disease: 3. Chronic anemia: 4. Acute kidney injury: 5. Closed left hip fracture: 6. Atrial fibrillation with rapid ventricular response: 7. Closed hip fracture: 8. Acute respiratory failure with hypoxia and hypercapnia: 9. Pneumothorax with hemothorax, traumatic: 10. Chronic respiratory failure with hypoxia and hypercapnia: 11. COPD (chronic obstructive pulmonary disease): 12. Septic shock: 13. Primary hypertension: 14. Mixed hyperlipidemia: 15. Nicotine abuse: 16. Chronic anticoagulation: Plan: Acute hypoxic hypercarbic respiratory failure: Extubated, so far doing well on 2-3 L nasal cannula oxygen. Reviewed pulmonology note. No further BiPAP, BiPAP to be avoided. Large blebs on chest x-ray. Overall mental status has been improving. May use Xanax as needed. Has not required resumption of Precedex today. Discontinue. Transfer out of ICU. Discontinue right IJ CVC. Resume PT, OT. Case management working on arrangements for SNF rehabilitation. Discussed with speech therapy, doing better today, advancing diet. Continue aspiration precautions. Completed antibiotic course for pneumonia Resume PT/OT eval when they are back. Discussed with CM, continue with choices and arrangements for SNF. Improving leukocytosis. Reassess condition and blood counts with extubation. Continued pain control. Monitor for risk of respiratory depression. Continue to monitor in ICU for now with weaning of Precedex, and postextubation with increased risk of need for reintubation with baseline comorbidities. Resume Trelegy at nighttime. Added incentive spirometer, flutter valve. Continue to reorient. - With underlying COPD, chronic respiratory failure with hypoxia and hypercapnia on home trilogy vent. Severe emphysema with large blebs. Will de-escalate IV corticosteroids. - With history of systolic and diastolic CHF - With left sided pneumothorax status post chest tube removal. - Concern for pneumonia, status post course of antibiotics -Completed vancomycin - Completed course of aztreonam - Sputum culture reviewed. Discussed risk of VAP. Moderate normal errol on culture. - Blood culture reviewed, remains negative - Has been switched over to oral prednisone. - DuoNeb - Budesonide - Lasix if developing fluid overload Left-sided pneumothorax - Seen on chest x-ray 09/1925 at 1546, postoperatively - Status post chest tube placement by Dr. Balnco CT chest CT/CT chest wo con [id number] IMPRESSION: 1. Slightly decreased in size of left anterobasilar pneumothorax compared with prior chest x-ray. 2. Small loculated right pleural effusion. 3. Extensive emphysematous changes, with large bulla occupying the left lower lobe. 4. Several lung nodules measuring up to 4 mm in the right lung, stable compared with the 06/04/2024. 5. Small perihepatic ascites. 6. Gallbladder wall appears thickened and edematous and contains dense material, possibly sludge and cholelithiasis. Recommend CT abdomen and pelvis and/or right upper quadrant ultrasound for further evaluation. 7. Age-indeterminate compression deformity of the L2 vertebral body, new since prior exam on 06/04/2024. - Repeat chest x-ray 06/29/2025 at 11 AM shows no reaccumulation of left pneumothorax - Currently chest tube is to waterseal -No leak detected Plan Chest tube removed. Reviewed reassessment x-ray. Minimal residual pneumothorax.. - Monitor clinical status closely A-fib with RVR: Completed amiodarone transition to oral Amio per discussion with cardiology. Recheck digoxin, reviewed down to 1.3. Will resume low-dose 62.5 mcg starting to Monitor blood pressures, if maintaining without further dips consider resumption of some of her home metoprolol. Off anticoagulation due to anemia. Consider trial of prophylactic heparin. Forehead hematoma: Improving/resolved about 2 x 3 cm now 1 x 2 cm. After IV pole injury. Monitor. Acute on chronic anemia: Hemoglobin has remained steady. Trial of subcu heparin for VTE prophylaxis. - Hemoglobin 8.9. Repeat blood counts. - s/p 2 units PRBC - Repeat blood counts in the morning. - Transfuse if hemoglobin less than 8 - Will hold off on anticoagulant therapy for atrial fibrillation, DVT prophylaxis due to persistent anemia NSTEMI - Patient had nonspecific ST-T wave changes yesterday at about 6 PM - Spoke to cardiology, no acute ST or T wave changes, recommended medical management - Cardiology consulted. Note reviewed. - Cardiac echo reviewed CONCLUSIONS Technically limited quality echocardiogram because of poor ultrasonic windows. Grossly LV systolic function is borderline low. RV appears to be mildly hypokinetic. Biatrial enlargement. Mild mitral regurgitation. Moderate to severe tricuspid regurgitation. Moderate pulmonary hypertension. IVC appears to be dilated. Plan - Aspirin, statin - Anticoagulant therapy held as above Septic shock: Resolved. Off Levophed. Monitor blood pressures. Antihypertensives/metoprolol held - Secondary to pneumonia Left hip fracture XR/XR hip LT 2-3V wo/w pel* [id number] IMPRESSION: Subcapital fracture of the proximal left femur. Some improvement in pain control. Plan - Status post surgical intervention - Morphine for pain control. Caution with pain medications with encephalopathy, fluctuating blood pressure. Lidocaine patch. - Orthopedic note reviewed Resume PT, OT Acute kidney injury: Creatinine steady 2.1. Monitor CAROL. Reassess chemistry. Diastolic CHF elevated BNP. Monitor for signs of fluid overload which may necessitate resumption of some diuresis. Type 2 diabetes mellitus, moderate dose sliding scale. Monitor blood glucose History of dementia History of multiple sclerosis Full code SCDs for DVT prophylaxis, anticoagulation currently on hold as patient has postoperative anemia Protonix for GI prophylaxis PDMP PDMP Reviewed: Not Reviewed Attestations Medical Necessity Statement*: Continue admission for continued reassessment of mental status, initiation of oral diet, resumption of PT, OT, mobilization and placement arrangements, optimization and reassessment of resolution of pneumothorax and maintenance of inflation of the lung removal of CT, with underlying COPD with severe any-cogk-hsh large blebs, extubation. Optimization of control of A-fib with RVR, after recent shock, with anemia, acute encephalopathy, KYLE, underlying diastolic CHF, diabetes and additional comorbidities as above. and High MDM includes amount and/or complexity of data reviewed/ordered [ previous or external records, resulted lab(s)/test(s), ordered lab(s)/test(s) and other healthcare professional discussion] as documented Diagnoses Type 2 diabetes mellitus without complication, with long-term current use of insulin E11.9; Z79.4 Diabetes mellitus prison insulin use: with terminal operations manager use Diabetes mellitus complication status: without complication Stage 3a chronic kidney disease N18.31 Chronic kidney disease stage 3 subtype: stage 3a (GFR 45-59) Chronic anemia D64.9 Acute kidney injury N17.9 Closed left hip fracture S72.002A Atrial fibrillation with rapid ventricular response I48.91 Closed hip fracture S72.009A Acute respiratory failure with hypoxia and hypercapnia J96.01; J96.02 Pneumothorax with hemothorax, traumatic S27.2XXA Chronic respiratory failure with hypoxia and hypercapnia J96.11; J96.12 COPD (chronic obstructive pulmonary disease) J44.1 COPD type: COPD with acute exacerbation Septic shock A41.9; R65.21 Primary hypertension I10 Hypertension type: primary hypertension Mixed hyperlipidemia E78.2 Hyperlipidemia type: mixed hyperlipidemia Nicotine abuse Z72.0 Chronic anticoagulation Z79.01
[2025-10-12] MEDS: pantoprazole 40 mg SDV IVP (20:55)
[2025-10-13] VITALS (45 sets, daily range): BP systolic 123–175; BP diastolic 55–111; PULSE 72–132; RESP 10–30; TEMP 36.6–37.2; O2SAT 92–100
[2025-10-13] MEDS: oxyCODONE 5 mg IR Tab/Cap PO ×2 (05:36→15:55)
[2025-10-13 06:14] LABS: Hematocrit 28.0 % (36-47); Hemoglobin 8.50 g/dL (11.27-16.99); Mean Corpuscular HGB Conc 30.4 g/dL (30-55); Mean Corpuscular Hemoglobin 27.2 pg (27-33); Mean Corpuscular Volume 89.5 fl (85-98); Nucleated Red Blood Cells % 0 %; Platelet Count 225 10^3/cmm (157-399); Red Blood Count 3.13 10^6/uL (3.85-5.65); White Blood Count 13.89 10^3/uL (3.29-11.43)
[2025-10-13 06:25] LABS: Alanine Aminotransferase 31 U/L (0-33); Albumin Level 3.3 g/dL (3.5-5.2); Alkaline Phosphatase 62 U/L (35-105); Anion Gap 14.3 (5-19); Aspartate Amino Transferase 47 U/L (0-32); Blood Urea Nitrogen 62 mg/dL (8-23); Calcium 8.6 mg/dL (8.5-10.5); Carbon Dioxide 27 mmol/L (22-29); Chloride 100 mmol/L (98-107); Globulin 2.3 g/dL (1.3-4.6); Glucose 262 mg/dL (65-115); Osmolality Calculated 311 mOsm/kg (285-295); Potassium 4.3 mmol/L (3.5-5.1); Sodium 137 mmol/L (136-145); Total Protein 5.6 g/dL (6.6-8.7)
--- NOTE | 2025-10-13 07:58 | P.PN_ITS ---
Documented by User: MARIA DE JESUS Velázquez 10/13/25 08:44 Subjective 2 Subjective: She appears more alert today, heart rate is tachycardic this morning. No chest pain or shortness of breath at rest. Vitals/I&O/Wt Last Vital Signs Temp 99.0 F 10/13/25 04:00 Pulse 105 H 10/13/25 07:56 Resp 18 10/13/25 07:52 BP 149/68 10/13/25 06:15 Pulse Ox 93 10/13/25 07:52 O2 Del Method Nasal Cannula 10/13/25 07:52 O2 Flow Rate 2 10/13/25 07:52 FiO2 30 10/12/25 03:38 10/12/25 10/13/25 10/13/25 22:59 06:59 14:59 Intake Total 1500 / 2350 Output Total 450 / 1100 650 / 1100 Balance 1050 / 1250 -650 / 1250 Weight last 48 hrs Weight 136 lb 3.931 oz Weight 136 lb 7.458 oz Physical Exam 2 Const: COMMON NORMALS: no acute distress and patient oriented x3 Chest: COMMONS NORMALS: normal inspection of the chest and normal palpation of entire chest wall CHEST: Yes Symmetrical chest wall rise Resp: COMMON NORMALS: normal respiratory effort, No retractions and No use of accessory muscles EFFORT & INSPECTION: Yes symmetric chest movement A USCULTATION: rales on the right and diminished lung sounds on the left in the lower lung mejia Cardio: COMMON NORMALS: S1 normal heart sound present, S2 normal heart sound present, No gallops present (Cardio), No clicks present (Cardio), No murmurs present (Cardio) and No rub (Cardio) RATE: tachycardic RHYTHM: abnormal rhythm irregularly irregular HEART SOUNDS: S1 normal heart sound present and S2 normal heart sound present PERIPHERAL PULSES: radial pulses present, posterior tibial pulses present and dorsalis pedis present Neuro: COMMON NORMALS: patient oriented x3 and moves all extremities Psych: COMMON NORMALS: mental status grossly normal and cooperative Urinary Catheter Management: Jefferson: Cath Placed During This Visit: yes Reason for Continuing Indwelling Catheter: Accurate Measurement of Urinary Output in Critically Ill Patients Urinary Catheter Date of Insertion: 10/06/25 Urinary Catheter Time of Insertion: 17:50 Data 10/13/25 05:54 10/13/25 05:54 Micro: Microbiology 10/07/25 18:42 Blood Culture - Final Blood NO GROWTH AFTER 5 DAYS 10/07/25 18:46 Blood Culture - Final Blood NO GROWTH AFTER 5 DAYS A&P Assessment and plan 1. Atrial fibrillation: 2. Congestive heart failure, unspecified HF chronicity, unspecified heart failure type: 3. Type 2 diabetes mellitus without complication, with long-term current use of insulin: 4. Stage 3a chronic kidney disease: 5. Chronic anemia: 6. Closed left hip fracture: 7. COPD (chronic obstructive pulmonary disease): 8. Pneumothorax with hemothorax, traumatic: Plan: Discussed with hospitalist, plan to restart home dose of metoprolol today, digoxin also restarted. Plan for discharge to rehab facility when accepted due to deconditioning, needs physical therapy. Continue amiodarone for now, terminal gauger supervisor plan to discontinue due to lung disease, if possible. Continue aspirin, statin. PDMP PDMP Reviewed: Not Reviewed Attestations 2 Medical Necessity Statement*: per hospitalist Coding Level of Care Code 64083 Diagnoses Atrial fibrillation I48.91 Congestive heart failure, unspecified HF chronicity, unspecified heart failure type I50.9 Heart failure chronicity: unspecified Heart failure type: unspecified Type 2 diabetes mellitus without complication, with long-term current use of insulin E11.9; Z79.4 Diabetes mellitus complication status: without complication Diabetes mellitus [facility] insulin use: with [facility] use Stage 3a chronic kidney disease N18.31 Chronic kidney disease stage 3 subtype: stage 3a (GFR 45-59) Chronic anemia D64.9 Closed left hip fracture S72.002A COPD (chronic obstructive pulmonary disease) J44.9 Pneumothorax with hemothorax, traumatic S27.2XXA Time Spent (min) 20 Documented by User: Armani Sanders MD 10/13/25 19:16 Physical Exam 2 Urinary Catheter Management: Jefferson: Cath Placed During This Visit: yes Data 10/13/25 05:54 10/13/25 05:54 A&P Assessment and plan 1. Atrial fibrillation: 2. Congestive heart failure, unspecified HF chronicity, unspecified heart failure type: 3. Type 2 diabetes mellitus without complication, with long-term current use of insulin: 4. Stage 3a chronic kidney disease: 5. Chronic anemia: 6. Closed left hip fracture: 7. COPD (chronic obstructive pulmonary disease): 8. Pneumothorax with hemothorax, traumatic: Plan: Discussed with hospitalist, plan to restart home dose of metoprolol today, digoxin also restarted. Plan for discharge to rehab facility when accepted due to deconditioning, needs physical therapy. Reduced dose of Amiodarone to 200 once daily for now. termite helper plan to discontinue Amiodarone due to lung disease, if possible. Continue aspirin, statin. PDMP PDMP Reviewed: Not Reviewed Coding Level of Care Code 44591 Diagnoses Atrial fibrillation I48.91 Congestive heart failure, unspecified HF chronicity, unspecified heart failure type I50.9 Heart failure chronicity: unspecified Heart failure type: unspecified Type 2 diabetes mellitus without complication, with long-term current use of insulin E11.9; Z79.4 Diabetes mellitus complication status: without complication Diabetes mellitus terminal gauger supervisor insulin use: with [facility] use Stage 3a chronic kidney disease N18.31 Chronic kidney disease stage 3 subtype: stage 3a (GFR 45-59) Chronic anemia D64.9 Closed left hip fracture S72.002A COPD (chronic obstructive pulmonary disease) J44.9 Pneumothorax with hemothorax, traumatic S27.2XXA Time Spent (min) 20
[2025-10-13] MEDS: heparin 5,000 unit/mL INJ 1 mL 5000 UNIT SUBCUT ×2 (08:11→20:49)
--- NOTE | 2025-10-13 09:29 | PC.NURSE ---
Dr. Kline renewed lorazepa and oxy as scheduled medication TID.
--- NOTE | 2025-10-13 10:41 | P.PN_ITS ---
Subjective 2 Subjective: Patient is status post hip hemiarthroplasty. Extubated in the ICU still. Tried to get her to the cardiac stepdown unit. Vitals/I&O/Wt Last Vital Signs Temp 97.8 F 10/13/25 08:00 Pulse 80 10/13/25 10:00 Resp 13 10/13/25 10:00 BP 127/63 10/13/25 10:00 Pulse Ox 93 10/13/25 10:00 O2 Del Method Nasal Cannula 10/13/25 10:00 O2 Flow Rate 2 10/13/25 10:00 FiO2 30 10/12/25 03:38 10/12/25 10/13/25 10/13/25 22:59 06:59 14:59 Intake Total 1500 / 2350 150 / 150 Output Total 450 / 450 650 / 1100 Balance 1050 / 1900 -650 / 1250 150 / 150 Weight last 48 hrs Weight 136 lb 3.931 oz Weight 136 lb 7.458 oz Physical Exam 2 Narrative: Wound clean dry intact Urinary Catheter Management: Jefferson: Cath Placed During This Visit: yes Reason for Continuing Indwelling Catheter: Accurate Measurement of Urinary Output in Critically Ill Patients Urinary Catheter Date of Insertion: 10/06/25 Urinary Catheter Time of Insertion: 17:50 Data 10/13/25 05:54 10/13/25 05:54 Micro: Microbiology 10/07/25 18:42 Blood Culture - Final Blood NO GROWTH AFTER 5 DAYS 10/07/25 18:46 Blood Culture - Final Blood NO GROWTH AFTER 5 DAYS A&P Assessment and plan 1. Closed hip fracture: Status post left hip hemiarthroplasty Follow-up orthopedic clinic 2 weeks PDMP PDMP Reviewed: Last Reviewed 10/13/25 09:38 EST by Nikunj Gallego DO Attestations 2 Medical Necessity Statement*: Per primary service Coding Level of Care Code Acute Code for Chg Fwd Diagnoses Closed hip fracture S72.009A
--- NOTE | 2025-10-13 13:47 | P.PN_ITS ---
Subjective 2 Subjective: She reports she is doing well today. She has been feeling better. Breathing is comfortable. During breakfast heart rate rhonda up to 120s-130s. Vitals/I&O/Wt Last Vital Signs Temp 98.8 F 10/13/25 12:00 Pulse 102 H 10/13/25 12:00 Resp 16 10/13/25 12:00 BP 126/59 10/13/25 12:00 Pulse Ox 100 10/13/25 12:00 O2 Del Method Nasal Cannula 10/13/25 12:00 O2 Flow Rate 2 10/13/25 12:00 FiO2 30 10/12/25 03:38 10/12/25 10/13/25 10/13/25 22:59 06:59 14:59 Intake Total 1500 / 2350 350 / 350 Output Total 450 / 450 650 / 1100 Balance 1050 / 1900 -650 / 1250 350 / 350 Weight last 48 hrs Weight 61.8 kg Weight 61.9 kg Physical Exam 2 Narrative: Sitting up in bed, having breakfast. Const: COMMON NORMALS: patient oriented x3 and alert GENERAL APPEARANCE: c ooperative ORIENTATION/CONSCIOUSNESS: Yes awake HENMT: COMMON NORMALS: oropharynx normal Neck/C-Spine: COMMON NORMALS: no JVD Resp: COMMON NORMALS: normal respiratory effort and clear to auscultation bilaterally AUSCULTATION: clear to auscultation bilaterally Cardio: COMMON NORMALS: no JVD, regular rhythm, S1 normal heart sound present, S2 normal heart sound present and No murmurs present (Cardio) RHYTHM: regular rhythm HEART SOUNDS: S1 normal heart sound present and S2 normal heart sound present GI: COMMON NORMALS: Normal to inspection, nondistended, normoactive bowel sounds present, Soft to palpation and non-tender PALPATION: Yes Soft to palpation Extremity: COMMON NORMALS: no joint enlargement and no pedal edema Neuro: COMMON NORMALS: patient oriented x3 and moves all extremities S ENSORIUM/ORIENTATION: Yes alert Skin: COMMON NORMALS: no rashes or lesions noted GENERAL SKIN EXAM: no rashes or lesions noted Urinary Catheter Management: Jefferson: Cath Placed During This Visit: no Data 10/13/25 05:54 10/13/25 05:54 Micro: Microbiology 10/07/25 18:42 Blood Culture - Final Blood NO GROWTH AFTER 5 DAYS 10/07/25 18:46 Blood Culture - Final Blood NO GROWTH AFTER 5 DAYS A&P Assessment and plan 1. Type 2 diabetes mellitus without complication, with long-term current use of insulin: 2. Stage 3a chronic kidney disease: 3. Chronic anemia: 4. Acute kidney injury: 5. Closed left hip fracture: 6. Atrial fibrillation with rapid ventricular response: 7. Closed hip fracture: 8. Acute respiratory failure with hypoxia and hypercapnia: 9. Pneumothorax with hemothorax, traumatic: 10. Chronic respiratory failure with hypoxia and hypercapnia: 11. COPD (chronic obstructive pulmonary disease): 12. Septic shock: 13. Primary hypertension: 14. Mixed hyperlipidemia: 15. Nicotine abuse: 16. Chronic anticoagulation: Plan: Acute hypoxic hypercarbic respiratory failure: She is awake alert, mental status continues to improve. Overall doing well on 2 L nasal cannula oxygen. This morning heart rates up to 120s-130s and fib with RVR while eating breakfast. BiPAP avoided per pulmonology. Large blebs on chest x-ray. Overall mental status has been improving. May use Xanax as needed. Has not required resumption of Precedex today. Discontinue. Transfer out of ICU requested, overflow from [facility] due to lack of beds. Discontinued right IJ CVC. Resumed PT, OT. Discussed with nursing, case management. Case management working on arrangements for SNF rehabilitation. Continue aspiration precautions, dysphagia diet. Recently has been improving and advanced by speech therapy. Completed antibiotic course for pneumonia Resume PT/OT eval when they are back. Discussed with CM, continue with choices and arrangements for SNF. Improving leukocytosis. Reassess condition and blood counts with extubation. Reviewed CBC. Continued pain control. Monitor for risk of respiratory depression. Continue to monitor in ICU for now with weaning of Precedex, and postextubation with increased risk of need for reintubation with baseline comorbidities. Resume Trelegy at nighttime. Added incentive spirometer, flutter valve. Continue to reorient. - With underlying COPD, chronic respiratory failure with hypoxia and hypercapnia on home trilogy vent. Severe emphysema with large blebs. Will de-escalate IV corticosteroids. - With history of systolic and diastolic CHF - With left sided pneumothorax status post chest tube removal. - Concern for pneumonia, status post course of antibiotics Some residual changes after pneumonia on chest x-ray. Monitor for signs of ongoing infection. So far has been off antibiotics. Tapering down steroids. - Completed vancomycin - Completed course of aztreonam - Sputum culture reviewed. Discussed risk of VAP. Moderate normal errol on culture. - Blood culture reviewed, remains negative - Has been switched over to oral prednisone. - DuoNeb - Budesonide - Lasix if developing fluid overload Left-sided pneumothorax - Seen on chest x-ray 09/1925 at 1546, postoperatively - Status post chest tube placement by Dr. Blanco CT chest CT/CT chest wo con [id number] IMPRESSION: 1. Slightly decreased in size of left anterobasilar pneumothorax compared with prior chest x-ray. 2. Small loculated right pleural effusion. 3. Extensive emphysematous changes, with large bulla occupying the left lower lobe. 4. Several lung nodules measuring up to 4 mm in the right lung, stable compared with the 06/04/2024. 5. Small perihepatic ascites. 6. Gallbladder wall appears thickened and edematous and contains dense material, possibly sludge and cholelithiasis. Recommend CT abdomen and pelvis and/or right upper quadrant ultrasound for further evaluation. 7. Age-indeterminate compression deformity of the L2 vertebral body, new since prior exam on 06/04/2024. - Repeat chest x-ray 06/29/2025 at 11 AM shows no reaccumulation of left pneumothorax - Currently chest tube is to waterseal -No leak detected Plan Chest tube removed. Reviewed reassessment x-ray. Minimal residual pneumothorax.. - Monitor clinical status closely A-fib with RVR: Heart rates up to 120s-130s while eating breakfast today. Reviewed chemistry, potassium is okay at 4.3. Without worsening renal function. So far has been maintaining blood pressure. Discussed with cardiology provider, will resume metoprolol. Digoxin has been resumed as well as low-dose 62.5 mcg. Continue. Continue oral amiodarone. Long-term consider weaning off amiodarone due to chronic lung disease, severe emphysema. Monitor hemoglobin with risk of bleeding with trial of prophylactic heparin. Did have a decrease in hemoglobin to 8.3-8.5 today. Recheck blood counts. Hold off on a full dose blood thinner. Forehead hematoma: Resolving. Monitor. Acute on chronic anemia: Hemoglobin has remained steady. Trial of subcu heparin for VTE prophylaxis. - Hemoglobin 8.5. Repeat blood counts. - s/p 2 units PRBC - Repeat blood counts in the morning. - Transfuse if hemoglobin less than 8 - Will hold off on anticoagulant therapy for atrial fibrillation, DVT prophylaxis due to persistent anemia NSTEMI - Patient had nonspecific ST-T wave changes yesterday at about 6 PM - Spoke to cardiology, no acute ST or T wave changes, recommended medical management - Cardiology consulted. Note reviewed. - Cardiac echo reviewed CONCLUSIONS Technically limited quality echocardiogram because of poor ultrasonic windows. Grossly LV systolic function is borderline low. RV appears to be mildly hypokinetic. Biatrial enlargement. Mild mitral regurgitation. Moderate to severe tricuspid regurgitation. Moderate pulmonary hypertension. IVC appears to be dilated. Plan - Aspirin, statin. Resume beta-moses. - Anticoagulant therapy held as above Septic shock: Resolved. Off Levophed. Monitor blood pressures. Antihypertensives/metoprolol held - Secondary to pneumonia Left hip fracture. Reviewed orthopedic note. Follow-up in clinic in 2 weeks. XR/XR hip LT 2-3V wo/w pel* [id number] IMPRESSION: Subcapital fracture of the proximal left femur. Some improvement in pain control. Plan - Status post surgical intervention - Morphine for pain control. Caution with pain medications with encephalopathy, fluctuating blood pressure. Lidocaine patch. - Orthopedic note reviewed Resume PT, OT Acute kidney injury: Creatinine today 1.9 Monitor CAROL. Reassess chemistry. Diastolic CHF elevated BNP. Monitor for signs of fluid overload which may necessitate resumption of some diuresis. Type 2 diabetes mellitus, moderate dose sliding scale. Monitor blood glucose History of dementia History of multiple sclerosis Full code SCDs for DVT prophylaxis, anticoagulation currently on hold as patient has postoperative anemia Protonix for GI prophylaxis PDMP PDMP Reviewed: Not Reviewed Attestations 2 Medical Necessity Statement*: Continue admission for continued reassessment of mental status, initiation of oral diet, resumption of PT, OT, mobilization and placement arrangements, optimization and reassessment of resolution of pneumothorax and maintenance of inflation of the lung removal of CT, with underlying COPD with severe [id number] large blebs, extubation. Optimization of control of A-fib with RVR, after recent shock, with anemia, acute encephalopathy, KYLE, underlying diastolic CHF, diabetes and additional comorbidities as above. and High MDM includes amount and/or complexity of data reviewed/ordered [ resulted lab(s)/test(s), ordered lab(s)/test(s) and other healthcare professional discussion] as documented Diagnoses Type 2 diabetes mellitus without complication, with long-term current use of insulin E11.9; Z79.4 Diabetes mellitus rectification printer insulin use: with rectification printer use Diabetes mellitus complication status: without complication Stage 3a chronic kidney disease N18.31 Chronic kidney disease stage 3 subtype: stage 3a (GFR 45-59) Chronic anemia D64.9 Acute kidney injury N17.9 Closed left hip fracture S72.002A Atrial fibrillation with rapid ventricular response I48.91 Closed hip fracture S72.009A Acute respiratory failure with hypoxia and hypercapnia J96.01; J96.02 Pneumothorax with hemothorax, traumatic S27.2XXA Chronic respiratory failure with hypoxia and hypercapnia J96.11; J96.12 COPD (chronic obstructive pulmonary disease) J44.1 COPD type: COPD with acute exacerbation Septic shock A41.9; R65.21 Primary hypertension I10 Hypertension type: primary hypertension Mixed hyperlipidemia E78.2 Hyperlipidemia type: mixed hyperlipidemia Nicotine abuse Z72.0 Chronic anticoagulation Z79.01
--- NOTE | 2025-10-13 15:54 | USR_ITS ---
PROCEDURE INFORMATION: Exam: US Duplex Right Lower Extremity Veins, Limited Exam date and time: 10/13/2025 4:25 PM Age: 79 years old Clinical indication: Pain; Foot; Right; Additional info: Assess for dvt TECHNIQUE: Imaging protocol: Real-time duplex ultrasound of the right extremity with 2-D kamara scale, color Doppler flow and spectral waveform analysis including responses to compression and other maneuvers (when performed) with image documentation. Limited exam was focused on the right lower extremity veins. COMPARISON: No relevant prior studies available. FINDINGS: Right deep veins: Unremarkable. The common femoral, femoral, proximal profunda femoral and popliteal veins are patent without thrombus. Normal Doppler waveforms. Normal compressibility and/or augmentation response. Superficial veins: Greater saphenous vein at the saphenofemoral junction is patent without thrombus. Soft tissues: Unremarkable. US/[place] [id number] IMPRESSION: No evidence of deep vein thrombosis.
--- NOTE | 2025-10-13 16:08 | PC.NURSE ---
Patient reports pain to left foot and ankle. Slight swelling and bruising noted. Dr. Castro notified. States he will order and ultrasound of her right leg. Oxycodone given for pain. Report given to Edvin. Patient transferred to 112-1 via bed.
[2025-10-13] MEDS: pantoprazole 40 mg SDV IVP (20:49)
[2025-10-14] VITALS (14 sets, daily range): BP systolic 122–181; BP diastolic 59–88; PULSE 69–90; RESP 16–26; TEMP 35.9–36.8; O2SAT 94–99; BMI 22.1
[2025-10-14 06:19] LABS: Hematocrit 29.2 % (36-47); Hemoglobin 8.80 g/dL (11.27-16.99); Mean Corpuscular HGB Conc 30.1 g/dL (30-55); Mean Corpuscular Hemoglobin 27.2 pg (27-33); Mean Corpuscular Volume 90.4 fl (85-98); Nucleated Red Blood Cells % 0 %; Platelet Count 226 10^3/cmm (157-399); Red Blood Count 3.23 10^6/uL (3.85-5.65); White Blood Count 9.83 10^3/uL (3.29-11.43)
[2025-10-14 06:47] LABS: Alanine Aminotransferase 31 U/L (0-33); Albumin Level 3.3 g/dL (3.5-5.2); Alkaline Phosphatase 68 U/L (35-105); Anion Gap 12.4 (5-19); Aspartate Amino Transferase 41 U/L (0-32); Blood Urea Nitrogen 56 mg/dL (8-23); Calcium 8.7 mg/dL (8.5-10.5); Carbon Dioxide 31 mmol/L (22-29); Chloride 101 mmol/L (98-107); Globulin 2.4 g/dL (1.3-4.6); Glucose 181 mg/dL (65-115); Osmolality Calculated 310 mOsm/kg (285-295); Potassium 4.4 mmol/L (3.5-5.1); Sodium 140 mmol/L (136-145); Total Protein 5.7 g/dL (6.6-8.7)
[2025-10-14] MEDS: heparin 5,000 unit/mL INJ 1 mL 5000 UNIT SUBCUT ×2 (08:20→20:37)
--- NOTE | 2025-10-14 11:14 | PC.SOCIAL ---
IMM Updated Updated pt on IMM. No questions voiced. Provided pt a copy. Initialed, dated, & timed copy in chart.
--- NOTE | 2025-10-14 13:17 | XRR_ITS ---
PROCEDURE INFORMATION: Exam: XR Chest Exam date and time: 10/14/2025 2:27 PM Age: 79 years old Clinical indication: Chest wall pain; Reassess ptx TECHNIQUE: Imaging protocol: Radiologic exam of the chest. Views: 1 view. COMPARISON: CR XR chest 1V portable [id number] 10/12/2025 10:32 AM FINDINGS: Lungs: Stable patchy atelectasis versus pneumonia in the right lower lobe with interval resolution of left lower lobe airspace disease. Stable mild hyperinflation of the lungs. Pleural spaces: Stable small bilateral pleural effusions. No pneumothorax. Heart/Mediastinum: Stable mild enlargement of the cardiac silhouette. Mediastinal contours are unremarkable. Vasculature: Stable vascular calcifications in the aorta. Bones/joints: Stable old ununited fracture of the proximal metaphysis of the right humerus. Stable diffuse osteopenia of the visualized bones. Stable degenerative changes in the spine and shoulders. XR/XR chest 1V portable [id number] IMPRESSION: 1. Stable patchy atelectasis versus pneumonia in the right lower lobe with interval resolution of left lower lobe airspace disease. Recommend followup chest imaging to insure resolution of these findings. 2. Stable small bilateral pleural effusions. 3. Stable old ununited fracture of the proximal metaphysis of the right humerus. 4. Incidental/nonacute findings are listed in the report.
--- NOTE | 2025-10-14 15:02 | P.DS_ITS ---
Discharge Providers Date of Admission: 10/06/25 17:50 Date of Discharge: October 14, 2025 Attending Provider at Admission: Jamir Way MD Attending Provider at Discharge: Taras Castro Primary Care Provider: Reva Govea APN Diagnoses at Discharge Discharge Diagnosis 1. Congestive heart failure, unspecified HF chronicity, unspecified heart failure type: 2. Primary hypertension: 3. Atrial fibrillation: 4. Type 2 diabetes mellitus without complication, with long-term current use of insulin: 5. Stage 3a chronic kidney disease: 6. Closed left hip fracture: 7. COPD (chronic obstructive pulmonary disease): Reason for Visit Reason for Visit: Fall, Lt hip Pain Brief History: Deidra De La Torre is a 79 year old female with a past medical history of multiple sclerosis, atrial fibrillation on anticoagulant therapy, history of CHF, history of seizure, history of dementia who presents to [facility] for a fall. Currently patient is alert oriented x 2, can follow commands, complains of left hip pain, currently in A-fib with RVR on amiodarone drip, she lives at home with her , who helps with activities of daily living, she had gone into the kitchen, when she had fallen on the left hip, denies hitting her head, denies any fevers, no chills, no dysuria, she does have atrial fibrillation, family members at bedside called her to see if she has taken her Eliquis this morning, and apparently she has not taken her Eliquis or her medications this morning. Hospital Course Hospital Course A-fib with RVR treated with amiodarone drip. Anticoagulation was held, she underwent left hip fracture repair with hemiarthroplasty, with difficulties throughout surgical procedure, elevated peak pressures, remained intubated, with finding of large left-sided pneumothorax, underwent chest tube placement with transient shock required pressor support, with possible pneumonia, treated with antibiotics, pneumothorax resolving with chest tube, received treatment for COPD with exacerbation. Ventilator weaning complicated by anxiety and acute encephalopathy superimposed on chronic mild cognitive decline, gradually improved with Precedex drip, as well as anxiety management with Ativan and pain management with hydrocodone. Weaned off the ventilator and extubated with chest tube removed on 10/10, minimal residual pneumothorax subsequently. Continue to recover from pneumonia with gradually improving and subsequent resolving leukocytosis, remained afebrile. Doing well on 2 L nasal cannula oxygen. Atrial fibrillation with RVR required additional adjustment of medications, transition from IV to oral amiodarone. Low-dose digoxin was restarted in addition to subsequent Toprol with improvement in blood pressures. Long-term due to lung disease goal will be to wean off amiodarone. At home normally uses Trelegy, but this is not continued due to pneumothorax and large blebs noted on chest x-ray with advanced emphysema. She will follow-up with pulmonology in office for further reassessment. Also assessed by cardiology due to NSTEMI, continued on medical treatment with aspirin, statin, beta-moses restarted. Echocardiogram obtained, with LV systolic function borderline low. Noted, mild MVR, moderate to severe TVR. Moderate pulmonary hypertension. She is asked to follow-up with cardiology. Held off anticoagulation at current time due to anemia, pending reassessment. Has tolerated low-dose aspirin. Mild KYLE on CKD continuing to gradually improve. Mental status gradually improved, and she has been participating with therapy, although has been quite deconditioned, due to which he is proceeding to further rehabilitation at SNF. Due to constipation bowel regimen is escalated with MiraLAX, Dulcolax for the next several days. Consider enema if needed. Repeat chest x-ray, without recurrence of pneumothorax. Noted stable old ununited fracture of the proximal metaphysis of the right humerus. She is asked to follow-up with orthopedics in office. Physical Exam Narrative: On revisit accompanied by her daughters and her . Const: COMMON NORMALS: patient oriented x3 and alert GENERAL APPEARANCE: cooperative and patient mechanically ventilated ORIENTATION/CONSCIOUSNESS: Yes awake OTHER: She is awake and alert, pleasant, conversant. HENMT: COMMON NORMALS: oropharynx normal Neck/C-Spine: COMMON NORMALS: no JVD Resp: COMMON NORMALS: normal respiratory effort and clear to auscultation bilaterally AUSCULTATION: clear to auscultation bilaterally Cardio: COMMON NORMALS: no JVD, regular rhythm, S1 normal heart sound present, S2 normal heart sound present and No murmurs present (Cardio) RATE: tachycardic RHYTHM: regular rhythm and abnormal rhythm irregularly irregular HEART SOUNDS: S1 normal heart sound present and S2 normal heart sound present GI: COMMON NORMALS: Normal to inspection, nondistended, normoactive bowel sounds present, Soft to palpation and non-tender PALPATION: Yes Soft to palpation Extremity: COMMON NORMALS: no joint enlargement and no pedal edema Neuro: COMMON NORMALS: patient oriented x3 and moves all extremities SENSORIUM/ORIENTATION: Yes alert Skin: COMMON NORMALS: no rashes or lesions noted GENERAL SKIN EXAM: no rashes or lesions noted Urinary Catheter Management: [place]: Cath Placed During This Visit: yes Reason for Continuing Indwelling Catheter: Other Urinary Catheter Date of Insertion: 10/06/25 Urinary Catheter Time of Insertion: 17:50 Discharge Data Studies Completed and Pending Completed Studies During Hospitalization Category Date Time Status CT chest wo con [id number] Stat Cat Scan 10/07/25 19:[address] head wo con* [id number] Stat Cat Scan 10/06/25 18:46 Completed CXRP [XR chest 1V portable [id number]] Routine Exams 10/10/25 20:00 Completed CXRP [XR chest 1V portable [id number]] Routine Exams 10/12/25 08:59 Completed CXRP [XR chest 1V portable [id number]] Routine Exams 10/14/25 13:17 Completed CXRP [XR chest 1V portable [id number]] Stat Exams 10/07/25 17:05 Completed XR chest 1V portable [id number] QAM Exams 10/09/25 06:00 Completed XR chest 1V portable [id number] Routine Exams 10/07/25 16:15 Completed XR chest 1V portable [id number] Routine Exams 10/07/25 18:30 Completed XR chest 1V portable [id number] Routine Exams 10/07/25 20:00 Completed XR chest 1V portable [id number] Routine Exams 10/07/25 21:00 Completed XR chest 1V portable [id number] Routine Exams 10/07/25 23:00 Completed XR chest 1V portable [id number] Routine Exams 10/08/25 04:00 Completed XR chest 1V portable 12781 Routine Exams 10/09/25 11:00 Completed XR chest 1V portable [id number] Routine Exams 10/10/25 10:29 Completed XR chest 1V portable [id number] Routine Exams 10/11/25 06:00 Completed XR chest 1V portable [id number] Stat Exams 10/06/25 15:22 Completed XR chest 1V portable 26548 Stat Exams 10/07/25 15:21 Completed XR chest 1V portable [id number] Urgent Exams 10/08/25 10:30 Completed XR hip LT 2-3V wo/w pel* [id number] Stat Exams 10/06/25 15:17 Completed XR pelvis 1-2V* 16631 Routine Exams 10/07/25 14:08 [place] [id number] Routine Ultrasound 10/13/25 15:54 Completed CV. echo complete* [id number] Routine Ultrasound 10/07/25 18:36 Completed Pending at discharge Category Date Time Status Complete Blood Count w/Auto AM LABS Lab 10/15/25 04:00 Ordered Complete Blood Count w/Auto AM LABS Lab 10/16/25 04:00 Ordered Comprehensive Metabolic Panel AM LABS Lab 10/15/25 04:00 Ordered Comprehensive Metabolic Panel AM LABS Lab 10/16/25 04:00 Ordered Occult Blood Stool [Immunochemical Fecal OCB] Routine Lab 10/12/25 07:30 Uncollected Radiology Impressions Hip/Pelvis X-Ray 10/06/25 15:17 IMPRESSION: Subcapital fracture of the proximal left femur. Head CT 10/06/25 18:46 IMPRESSION: 1. No acute intracranial abnormality. 2. Chronic findings as above. Pelvis X-Ray 10/07/25 14:08 IMPRESSION: Total left hip arthroplasty without abnormality. Chest CT 10/07/25 19:36 IMPRESSION: 1. Slightly decreased in size of left anterobasilar pneumothorax compared with prior chest x-ray. 2. Small loculated right pleural effusion. 3. Extensive emphysematous changes, with large bulla occupying the left lower lobe. 4. Several lung nodules measuring up to 4 mm in the right lung, stable compared with the 06/04/2024. 5. Small perihepatic ascites. 6. Gallbladder wall appears thickened and edematous and contains dense material, possibly sludge and cholelithiasis. Recommend CT abdomen and pelvis and/or right upper quadrant ultrasound for further evaluation. 7. Age-indeterminate compression deformity of the L2 vertebral body, new since prior exam on 06/04/2024. COMMENTS: Consistent with the [employer]'s Incidental Findings Committee white paper (J Am Griselda Radiol 2015): In patients aged 35 years and older with an incidental thyroid nodule equal to or greater than 1.[address], MRI or extrathyroidal US, further evaluation with dedicated thyroid US is recommended for patients with normal life expectancy and without comorbidities. For smaller nodules without suspicious features, no further evaluation or follow up is recommended. Venous Duplex 10/13/25 15:54 IMPRESSION: No evidence of deep vein thrombosis. Chest X-Ray 10/14/25 13:17 IMPRESSION: 1. Stable patchy atelectasis versus pneumonia in the right lower lobe with interval resolution of left lower lobe airspace disease. Recommend followup chest imaging to insure resolution of these findings. 2. Stable small bilateral pleural effusions. 3. Stable old ununited fracture of the proximal metaphysis of the right humerus. 4. Incidental/nonacute findings are listed in the report. Laboratory Results WBC 9.83 10^3/uL (3.29-11.43) 10/14/25 05:35 RBC 3.23 10^6/uL (3.85-5.65) L 10/14/25 05:35 Hgb 8.80 g/dL (11.27-16.99) L 10/14/25 05:35 Hct 29.2 % (36-47) L 10/14/25 05:35 MCV 90.4 fl (85-98) 10/14/25 05:35 MCH 27.2 pg (27-33) 10/14/25 05:35 MCHC 30.1 g/dL (30-55) 10/14/25 05:35 RDW 16.8 % (12.1-15.1) H 10/14/25 05:35 Plt Count 226 10^3/cmm (157-399) 10/14/25 05:35 MPV 10.2 fL (7.4-10.4) 10/14/25 05:35 Neut % (Auto) 80.7 % 10/14/25 05:35 Lymph % (Auto) 8.5 % 10/14/25 05:35 Nicholas % (Auto) 6.0 % 10/14/25 05:35 Eos % (Auto) 0.4 % 10/14/25 05:35 Baso % (Auto) 0.1 % 10/14/25 05:35 Neut # (Auto) 7.93 10^3/uL (1.8-7.7) H 10/14/25 05:35 Lymph # (Auto) 0.8 10^3/uL (0.8-4.8) 10/14/25 05:35 Nicholas # (Auto) 0.6 10^3/uL (0.2-0.9) 10/14/25 05:35 Eos # (Auto) 0.0 10^3/uL (0.0-0.8) 10/14/25 05:35 Baso # (Auto) 0.0 10^3/uL (0.0-0.1) 10/14/25 05:35 Nucleated RBC % (auto) 0 % 10/14/25 05:35 Nucleated RBCs # 0.0 /100WBC 10/14/25 05:35 PT 14.50 SECONDS (12.1-14.9) 10/10/25 02:52 INR 1.06 (0.8-1.2) 10/10/25 02:52 APTT 29.9 SECONDS (23.9-36.7) 10/06/25 16:21 Specimen Type Arterial 10/11/25 04:22 Sample Site Brachial, right 10/11/25 04:22 ABG pH 7.30 (7.35-7.45) L 10/11/25 04:22 ABG pCO2 43.2 mmHg (35-45) 10/11/25 04:22 ABG pO2 91.7 mmHg (80.0-100.0) 10/11/25 04:22 ABG PO2/FiO2 Ratio 305 10/11/25 04:22 ABG HCO3 21.2 mmol/L (22-26) L 10/11/25 04:22 ABG O2 Saturation 97.6 10/10/25 10:40 ABG Base Excess -5.0 mmol/L (-2.0-2.0) L 10/11/25 04:22 Bob Test N/a 10/11/25 04:22 A-a O2 Gradient 18.5 mmHg (5-10) H 10/10/25 10:40 Hematocrit 28.8 % (37-47) L 10/11/25 04:22 Hgb O2 Saturation 95.4 % (95-100) 10/10/25 10:40 Carboxyhemoglobin 1.0 %THgb (0.4-20.1) 10/10/25 10:40 Methemoglobin 1.2 % (0.4-1.5) 10/10/25 10:40 Total Hemoglobin 9.8 g/dL (12-16) L 10/10/25 10:40 Sodium 138.0 mmol/L (131-143) 10/10/25 10:40 Potassium 4.3 mmol/L (3.5-5.0) 10/10/25 10:40 Glucose 188.0 mg/dL (70-115) H 10/10/25 10:40 Ionized Calcium 1.2 mmol/L (1.1-1.4) 10/10/25 10:40 O2 Delivery Device Bipap 10/11/25 04:22 FiO2 30.0 % 10/11/25 04:22 Tidal Volume 0.40 10/10/25 04:55 PEEP 5.0 cmH20 10/10/25 10:40 Superintendent Transportation ID Felipe 10/11/25 04:22 Crit Value Read Back Cartr 10/07/25 14:40 Blood Gas Notified Time 1510 10/07/25 14:40 Sodium 140 mmol/L (136-145) 10/14/25 05:35 Potassium 4.4 mmol/L (3.5-5.1) 10/14/25 05:35 Chloride 101 mmol/L (98-107) 10/14/25 05:35 Carbon Dioxide 31 mmol/L (22-29) H 10/14/25 05:35 Anion Gap 12.4 (5-19) 10/14/25 05:35 BUN 56 mg/dL (8-23) H 10/14/25 05:35 Creatinine 1.8 mg/dL (0.5-0.9) H 10/14/25 05:35 GFR Calculation Not Reportable 10/14/25 05:35 Glucose 181 mg/dL (65-115) H 10/14/25 05:35 POC Glucose 358 mg/dL (70-110) H 10/14/25 10:54 Estimat Average Glucose 146 10/06/25 16:21 Hemoglobin A1c 6.7 % (4.0-6.0) H 10/06/25 16:21 Calculated Osmolality 310 mOsm/kg (285-295) H 10/14/25 05:35 Lactic Acid 1.3 mmol/L (0.5-2.2) 10/06/25 16:21 Lactate 1.2 mmol/L (0.5-2.2) 10/10/25 02:52 Calcium 8.7 mg/dL (8.5-10.5) 10/14/25 05:35 Phosphorus 4.7 mg/dL (2.5-4.5) H 10/10/25 02:52 Phosphorus Cancelled 10/10/25 02:52 Magnesium 2.1 mg/dL (1.7-2.3) 10/10/25 02:52 Magnesium Cancelled 10/10/25 02:52 Iron 29 ug/dL (37-145) L 10/12/25 03:59 TIBC 187 mcg/dl 10/12/25 03:59 % Saturation 15.5 % (20-50) L 10/12/25 03:59 Unsat Iron Binding 158 ug/dL (112-347) 10/12/25 03:59 Ferritin 78 ng/mL (15-150) 10/12/25 03:59 Total Bilirubin 0.3 mg/dL (0.15-1.2) 10/14/25 05:35 AST 41 U/L (0-32) H 10/14/25 05:35 ALT 31 U/L (0-33) 10/14/25 05:35 Alkaline Phosphatase 68 U/L (35-105) 10/14/25 05:35 Creatine Kinase 40 U/L (26-192) 10/06/25 16:21 Troponin T Baseline 31 ng/L (0-10) H 10/07/25 18:42 Troponin T 120 Minute 26.53 ng/L (0-10) H 10/07/25 21:40 Delta Troponin T -4.47 ABS# (0-10) L 10/07/25 21:40 Troponin T Hi Sens 6Hr 26.37 ng/L (0-10) H 10/08/25 00:45 Troponin T Hi Sens 6Hr Delta -4.63 ng/L (0-12) L 10/08/25 00:45 C-Reactive Protein 34.4 mg/L (0.0-4.9) H 10/10/25 02:52 C-Reactive Protein Cancelled 10/10/25 02:52 NT-Pro-B Natriuret Pep 7733 pg/mL (0-450) H 10/10/25 02:52 NT-Pro-B Natriuret Pep Cancelled 10/10/25 02:52 Total Protein 5.7 g/dL (6.6-8.7) L 10/14/25 05:35 Albumin 3.3 g/dL (3.5-5.2) L 10/14/25 05:35 Globulin 2.4 g/dL (1.3-4.6) 10/14/25 05:35 Triglycerides 144 mg/dL (0-150) 10/06/25 16:21 Cholesterol 298 mg/dL (0-200) H 10/06/25 16:21 LDL Cholesterol, Calc 207 mg/dL (50-129) H 10/06/25 16:21 HDL Cholesterol 62 mg/dL (60-100) 10/06/25 16:21 LDL/HDL Ratio 3.34 RATIO (0.00-3.22) H 10/06/25 16:21 Cholesterol/HDL Ratio 4.81 mg/dL (0.0-4.40) H 10/06/25 16:21 Procalcitonin 1.24 ng/mL (0-0.5) H 10/10/25 02:52 Procalcitonin Cancelled 10/10/25 02:52 TSH 2.89 uIU/mL (0.27-4.20) 10/06/25 16:21 Urine Color Yellow (Yellow) 10/06/25 16:35 Urine Appearance Clear (CLEAR) 10/06/25 16:35 Urine pH 5.5 (5-7) 10/06/25 16:35 Ur Specific [place] 1.017 (1.005-1.030) 10/06/25 16:35 Urine Protein Trace (Negative) A 10/06/25 16:35 Urine Glucose (UA) Negative (Normal) 10/06/25 16:35 Urine Ketones Negative (Negative) 10/06/25 16:35 Urine Blood Negative (Negative) 10/06/25 16:35 Urine Nitrate Negative (Negative) 10/06/25 16:35 Urine Bilirubin Negative (Negative) 10/06/25 16:35 Urine Urobilinogen 0.2 mg/dL (Negative) 10/06/25 16:35 Ur Leukocyte Esterase Negative (Negative) 10/06/25 16:35 Urine RBC 0-2 /hpf (0-2) 10/06/25 16:35 Urine WBC 0-5 /hpf (0-5) 10/06/25 16:35 Ur Squamous Epith Cells 0-5 /hpf (0-5) 10/06/25 16:35 Amorphous Sediment Not Reportable 10/06/25 16:35 Urine Bacteria None seen /hpf (NONE) 10/06/25 16:35 Hyaline Casts 20.27 /lpf 10/06/25 16:35 Vancomycin Trough 11.3 ug/mL (10-15) 10/11/25 09:59 Random Vancomycin 12.0 ug/mL (20.0-40.0) L 10/10/25 02:52 Digoxin 1.3 ng/mL (0.6-1.2) H 10/12/25 03:59 Influenza A (PCR) Negative (Negative) 10/07/25 18:38 Influenza Type B (PCR) Negative (Negative) 10/07/25 18:38 RSV (PCR) Negative (Negative) 10/07/25 18:38 SARS-CoV-2 (PCR) Negative (Negative) 10/07/25 18:38 Blood Type O Positive 10/07/25 09:54 Rho(D) Type Rh positive 10/07/25 09:54 Antibody Screen Negative 10/07/25 09:54 Crossmatch See Detail 10/07/25 09:54 Vitals Last Vital Signs Temp 97.8 F 10/14/25 08:00 Pulse 72 10/14/25 12:00 Resp 23 H 10/14/25 12:00 BP 156/78 10/14/25 12:00 Pulse Ox 95 10/14/25 12:00 O2 Del Method Nasal Cannula 10/14/25 09:09 O2 Flow Rate 2 10/14/25 09:09 FiO2 30 10/12/25 03:38 Discharge Plan Discharge Patient Disposition: Xfer SNF Condition: Stable Prescriptions: New atorvastatin 40 mg Tablet 40 mg PO BEDTIME Qty: 30 0RF amiodarone [Pacerone] 200 mg Tablet 200 mg PO DAILY Qty: 30 0RF aspirin 81 mg Tablet,Chewable 81 mg ng-tube DAILY Qty: 30 0RF prednisone 20 mg Tablet 20 mg PO DAILY Qty: 7 0RF Rx Instructions: 1 tab for 3 days, then 1/2 tab for 4 days. polyethylene glycol 3350 [Miralax] 17 gram powder in packet 17 g PO BID Qty: 30 0RF bisacodyl [Dulcolax (bisacodyl)] 10 mg suppository 10 mg IA DAILY 3 Days Qty: 12 0RF hydrocodone-acetaminophen 5-325 mg tablet 1 tab PO .q4-6h PRN (Reason: pain) 7 Days Qty: 42 0RF Rx Instructions: 1 tab orally as needed Continued cholecalciferol (vitamin D3) 10 mcg (400 unit) tablet 10 mcg PO DAILY budesonide [Pulmicort] 0.5 mg/2 mL suspension for nebulization 0.5 mg INHALATION BID PRN (Reason: Shortness Of Breath) potassium chloride 8 mEq capsule, extended release 8 meq PO DAILY Qty: 90 3RF furosemide 40 mg tablet 60 mg PO DAILY Qty: 90 3RF albuterol sulfate 2.5 mg /3 mL (0.083 %) solution for nebulization 2.5 mg inhalation Q4H PRN (Reason: Shortness Of Breath) metformin 500 mg tablet extended release 24 hr 500 mg PO QAM pantoprazole 40 mg tablet,delayed release (DR/EC) 40 mg PO QPM metoprolol tartrate 25 mg Tablet 25 mg PO BID Qty: 60 0RF alprazolam 0.5 mg tablet 0.25 mg PO TID PRN (Reason: Anxiety) Qty: 30 0RF digoxin 125 mcg (0.125 mg) tablet 0.0625 mcg PO EVERY OTHER DAY Qty: 1 0RF escitalopram oxalate 10 mg tablet 10 mg PO DAILY Qty: 90 0RF fluticasone propion-salmeterol [Wixela Inhub] 250-50 mcg/dose blister with device 1 ea INHALATION BID furosemide 20 mg tablet 60 mg PO DAILY trazodone 50 mg tablet 50 - 100 mg PO BEDTIME Discontinued Eliquis 5 mg tablet 2.5 mg PO BID Qty: 90 3RF Discharge Order = DC NOW: Discharge Order (Routine); Ordered 10/14/25 Ordered By: Taras Castro Other Ambulatory Orders: DME: BIPAP (Order) Location: None Selected Ordered By: Taras Castro Referrals: [facility] [Outside] Yoni Cordoba MD [Physician, Pulmonology] - 10/30/25 10:45 am Nikunj Gallego DO [Physician, Orthopedics] - 2 weeks Referral Note: We have notified your physician's clinic of the need for a follow-up appointment to be scheduled. If you have not heard from them within the next 2 business days, please call them directly. Alyce Dickinson FNP [Nurse Practitioner, Cardiology] - 11/03/25 4:00 pm Govea,EULALIA Ardon [Primary Care Provider, Nurse Practitioner] - 4-7 days Referral Note: Tre Hernandez will arrange for PCP to see her in the facility Discharge Diet: As Directed Discharge Activity: As per PT/OT instructions Patient Instructions: Atrial Fibrillation, Hydrocodone/Acetaminophen (By mouth) (Vicodin, [place]), Prednisone (By mouth), Aspirin (By mouth), Amiodarone (By mouth), Atorvastatin (By mouth), Acute Kidney Injury (DC), Fall Prevention for Older Adults (DC), Sepsis (DC), Acute Wound Care (DC), Acute Respiratory Failure (ED), Opioid Safety, Post Anesthesia Care, Patient Portal & Maggie Instructions Activity Restrictions/Additional Instructions: You are being discharged from the hospital today during which time you have been under the care of Dr. Gallego. You had a left femoral neck fracture. You were treated for this injury with left hip Leonel arthroplasty. You may resume you normal diet (including any special diets as directed by your primary doctor) as well as your home medications. You should follow up with you primary doctor if you have any questions regarding medication you took prior to your stay in the hospital. You may take your pain medication as prescribed. After the first few days, take your pain medication as needed. Do not drive or drink alcohol while taking your pain medication. Your injury may increase your risk of developing a blood clot,or DVT, in your arm or leg. This could potentially dislodge and travel to your lungs and become a life threatening condition called apulmonary embolus,or PE. You have been prescribed aspirin to be taken to prevent this. Frequent movement of the legs will also help prevent this from occurring. If you develop any new or worsening cough, chestpain, bloody sputum or shortness of breath, call 911 or go to the EmergencyRoom. Always keep your surgical incision/dressing clean and dry. If you experience increasing pain at your incision site, redness, swelling, increasing discharge, foul odors, or fevers (greater than 100.4), night sweats or chills you should call the office at the above number. If you feel this is an emergency you should be evaluated in the Emergency Department of a nearby hospital. Orthopedic Patient Instructions Summary: Weight Bearing: Weight-bear as tolerated Activity: Weight-bear as tolerated. Diet: Regular. Wound Care: Keep dressing clean and dry. Anticoagulation: Aspirin Pain Medication: Take only as needed. Ice, rest and elevation will be of great benefit. Please plan to follow[facility] Gallego in 1 weeks. You will need to call the clinic [phone] to schedule this visit. Thank you far allowing me to participate in your care. Do not hesitate to call the office with any questions or concerns. Continue dysphagia level 6 diet soft and bite-size food with thin liquids. Maintain aspiration precautions. Discontinue blood thinner medication (Eliquis) at this time, follow-up blood counts due to anemia. Continue low-dose aspirin. Monitor for any bleeding, dark/black stools, blood in the stool, or bleeding elsewhere. Follow-up with cardiology for reassessment of atrial fibrillation and control and continued de-escalation off of amiodarone. And follow-up of congestive heart failure. Follow-up with pulmonology for reassessment after pneumonia and pneumothorax. Complete prednisone taper. Reassess renal function after acute kidney injury. Please recheck labs on Sunday. Continue bowel regimen, consider addition of fiber to meals for constipation. Discharge Attestations Time Spent in Discharge Care*: greater than 30 min Quality Metrics Clinical Quality Measures [ No reported AMI, CVA or VTE this stay] Coding Level of Care Code 14969 Total time (in minutes) for Discharge: 55 Diagnoses Congestive heart failure, unspecified HF chronicity, unspecified heart failure type I50.9 Heart failure chronicity: unspecified Heart failure type: unspecified Primary hypertension I10 Hypertension type: primary hypertension Atrial fibrillation I48.91 Atrial fibrillation type: unspecified Type 2 diabetes mellitus without complication, with long-term current use of insulin E11.9; Z79.4 Diabetes mellitus complication status: without complication 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
--- NOTE | 2025-10-14 22:27 | PC.NURSE ---
[facility]
== END 2025-10-14 22:30 | disposition skilled nursing facility (03) | DRG 521 ==
LOC: ER 21:34 → ER IP 10-07 01:32 → CSU 10-07 11:09 → ICU 10-07 15:04 → CSU 10-13 16:12
PROVIDERS: Family Medicine; Internal Medicine; Orthopaedic Surgery; Admitting Provider Family Medicine; Emergency Provider Emergency Medicine; PCP Nurse Practitioner Family; Visit Provider Internal Medicine
PROC: 0SRS0JA Replacement of Left Hip Joint, Femoral Surface with Synthetic Substitute, Uncemented, Open Approach (ICD-10-PCS; principal; 2025-10-07 15:35)
DX: S72.012A Unspecified intracapsular fracture of left femur, initial encounter for closed fracture (principal); A41.9 Sepsis, unspecified organism; I21.4 Non-ST elevation (NSTEMI) myocardial infarction; J18.9 Pneumonia, unspecified organism; J96.22 Acute and chronic respiratory failure with hypercapnia; J96.21 Acute and chronic respiratory failure with hypoxia; R65.21 Severe sepsis with septic shock; I13.0 Hypertensive heart and chronic kidney disease with heart failure and stage 1 through stage 4 chronic kidney disease, or unspecified chronic kidney disease; N17.9 Acute kidney failure, unspecified; J93.83 Other pneumothorax; I48.92 Unspecified atrial flutter; I50.42 Chronic combined systolic (congestive) and diastolic (congestive) heart failure; I48.20 Chronic atrial fibrillation, unspecified; J44.1 Chronic obstructive pulmonary disease with (acute) exacerbation; G93.40 Encephalopathy, unspecified; S00.83XA Contusion of other part of head, initial encounter; N18.31 Chronic kidney disease, stage 3a; I27.20 Pulmonary hypertension, unspecified; E11.22 Type 2 diabetes mellitus with diabetic chronic kidney disease; F41.9 Anxiety disorder, unspecified; I07.1 Rheumatic tricuspid insufficiency; E78.2 Mixed hyperlipidemia; D63.1 Anemia in chronic kidney disease; E11.65 Type 2 diabetes mellitus with hyperglycemia; F32.A Depression, unspecified; F03.90 Unspecified dementia, unspecified severity, without behavioral disturbance, psychotic disturbance, mood disturbance, and anxiety; J43.9 Emphysema, unspecified; G35.D Multiple sclerosis, unspecified; I10 Essential (primary) hypertension; Z79.01 Long term (current) use of anticoagulants; Z79.899 Other long term (current) drug therapy; Z79.84 Long term (current) use of oral hypoglycemic drugs; Z88.0 Allergy status to penicillin; W19.XXXA Unspecified fall, initial encounter; W22.8XXA Striking against or struck by other objects, initial encounter
CPT/HCPCS: 36415; 36416; 36430; 36592; 36600; 51702; 70450; 71045; 71250; 72170; 73502; 80051; 80053; 80061; 80162; 80202; 81001; 82330; 82550; 82728; 82803; 82805; 82962; 83036; 83540; 83550; 83605; 83735; 83880; 84100; 84145; 84443; 84484; 85025; 85610; 85730; 86140; 86850; 86900; 86920; 87040; 87070; 87086; 87205; 87637; 92507; 92523; 92526; 92610; 93005; 93306; 93971; 94002; 94003; 94640; 94660; 94664; 94799; 96372; 97110; 97162; 97167; 97530; 97535; A4222; C1751; C1776; J0282; J0283; J1160; J1171; J1644; J1815; J1938; J2250; J2270; J2371; J2405; J2470; J2704; J2919; J3010; J3373; J3490; J7030; J7050; J7512; J7626; J7799; J9999; P9016; P9040; P9045

== ENCOUNTER → 2025-10-26 16:02 | Outpatient (BNVA) | payer MEDICARE, SELFPAY | PROVIDERS: PCP Nurse Practitioner Family; Visit Provider Internal Medicine | DX: J44.9 Chronic obstructive pulmonary disease, unspecified (principal); J93.9 Pneumothorax, unspecified; J96.11 Chronic respiratory failure with hypoxia; J96.12 Chronic respiratory failure with hypercapnia; Z99.81 Dependence on supplemental oxygen; Z87.891 Personal history of nicotine dependence | CPT/HCPCS: 71046; 99214; Q3014 ==

== ENCOUNTER 2025-10-27 13:25 | Outpatient (CLI) | payer MEDICARE, SELFPAY ==
--- NOTE | 2025-10-27 13:30 | CT_ITS ---
WS: [id number] CT chest wo con [id number] HISTORY: Pneumothorax seen on CXR TECHNIQUE: Axial imaging performed through the thorax. Coronal and sagittal reformats are submitted. All CT scans at [facility] use at least one of these dose optimization techniques: automated exposure control; mA and/or kV adjustment per patient size (includes targeted exams where dose is matched to clinical indication); or iterative reconstruction. CONTRAST: Omnipaque 350; 100 mL IV. DLP: 243.95 mGy.cm COMPARISON: 10/07/2025, chest radiograph 10/26/2025 and 10/14/2025 Lungs and central airway: Lungs are hyperinflated. Numerous bulla and bleb formations are identified. There is a small LEFT pneumothorax. There is an air- fluid level at the lung base. This air-fluid level appears to be contained within a large bulla. The pneumothorax may be separate from this large bulla. Compared to the CT of 10/07/2025 there does appear to be a small amount of tension component. The anterior junctional line is deviated to the RIGHT. The extent of deviation is more similar to the study of 06/04/2024. There is a small RIGHT pleural effusion. There is a small amount of subcutaneous air over the LEFT lateral chest wall. Pleura: Normal. No pleural effusion. Mild cardiomegaly. Mediastinum and donald: No adenopathy. Vessels: Moderate atherosclerosis aorta Chest wall and lower neck: No soft tissue masses. Upper abdomen: High density nodule 6 mm superior pole RIGHT kidney. Mild atrophy superior pole of each kidney. Osseous structures: Nonunion fracture RIGHT humeral neck. CT/CT chest wo con [id number] IMPRESSION: 1. Small left-sided pneumothorax. 2. Numerous large bulla and bleb formations in the periphery of the RIGHT and LEFT lungs. 3. There is an air-fluid level within the large bulla at the LEFT lung base. A ir-fluid level appears to be within a bulla and may be separate from the pneumo thorax. 4. There is very slight RIGHT deviation of the anterior junctional line sugges ting there may be a slight tension related to the pneumothorax which is new sin ce 10/07/2025. Notified Yoni Cordoba MD at 10/27/2025 2:19 PM.
== END 2025-10-27 13:26 | disposition home or self-care (01) ==
PROVIDERS: PCP Internal Medicine; Visit Provider Internal Medicine
DX: J44.9 Chronic obstructive pulmonary disease, unspecified (principal); R91.8 Other nonspecific abnormal finding of lung field; J93.9 Pneumothorax, unspecified; J96.11 Chronic respiratory failure with hypoxia; J96.12 Chronic respiratory failure with hypercapnia; Z99.81 Dependence on supplemental oxygen; M79.89 Other specified soft tissue disorders; R53.83 Other fatigue; Z87.891 Personal history of nicotine dependence
CPT/HCPCS: 71250; 99215; Q3014

== ENCOUNTER 2025-10-27 15:21 | Emergency (ER) | payer MEDICARE, SELFPAY ==
[2025-10-27] VITALS (13 sets, daily range): BP systolic 115–149; BP diastolic 58–97; PULSE 83–112; RESP 18–26; TEMP 36.8; O2SAT 92–100
--- NOTE | 2025-10-27 15:52 | W.ED.GENADLT ---
HPI - General Adult General: Chief complaint: General Medical Stated complaint: Adalid sent to be transported Time Seen by Provider: 10/27/25 15:36 History of Present Illness: 79-year-old female with a history of severe COPD with multiple blebs. She was at our facility within the last month at which time she had a hip arthroplasty done postoperatively she was difficult to extubate then developed a pneumothorax a pigtail catheter was placed which resolved the pneumothorax nicely ultimately she ended up being transferred for pulmonology services. They monitored it did not require any significant intervention. On follow-up today at the pulmonology clinic CT was done and she was found to have a small pneumothorax. She is satting in the 90s on room air which is approximately her baseline she is denying any chest pain. Associated symptoms: Reports dyspnea; Deny chest pain or rash Related Data Home Medications ?Medication ?Instructions ?Recorded ?Confirmed albuterol sulfate 2.5 mg/3 mL 2.5 mg inhalation Q4H PRN 12/29/19 10/28/25 (0.083 %) solution for nebulization Shortness Of Breath pantoprazole 40 mg tablet,delayed 40 mg PO QPM 04/10/20 10/28/25 release cholecalciferol (vitamin D3) 10 10 mcg PO DAILY 07/18/22 10/28/25 mcg (400 unit) tablet metformin 500 mg tablet,extended 500 mg PO QAM 10/15/24 10/28/25 release 24 hr fluticasone 250 mcg-salmeterol 50 1 ea inhalation BID 10/07/25 10/28/25 mcg/dose blistr powdr for inhalation (Jana Inhub) trazodone 50 mg tablet 50 mg PO BEDTIME 10/07/25 10/28/25 furosemide 20 mg tablet See Rx Instructions .Route .COMPLEX 10/26/25 10/28/25 furosemide 40 mg tablet See Rx Instructions .Route 10/26/25 10/28/25 .COMPLEX fluid build up hydrocodone 5 mg-acetaminophen 325 2 tab PO .q 4 hours PRN Pain 10/26/25 10/28/25 mg tablet bisacodyl 10 mg rectal suppository 10 mg MT DAILY PRN Constipation 10/28/25 10/28/25 budesonide 0.5 mg/2 mL suspension 0.5 mg inhalation Q12H PRN 10/28/25 10/28/25 for nebulization Shortness Of Breath Or Wheezing Previous Rx's ?Medication ?Instructions ?Recorded metoprolol tartrate 25 mg tablet 25 mg PO BID #60 tabs 04/10/20 alprazolam 0.5 mg tablet 0.25 mg (1/2 x 0.5 mg) PO TID PRN 03/13/24 Anxiety #30 tabs digoxin 125 mcg (0.125 mg) tablet 0.0625 mcg (0.0005 x 125 mcg 03/13/24 (0.125 mg)) PO EVERY OTHER DAY #1 tab escitalopram oxalate 10 mg tablet 10 mg PO DAILY #90 tabs 03/13/24 potassium chloride 8 mEq 8 meq PO DAILY #90 caps 03/03/25 capsule,extended release amiodarone 200 mg tablet (Pacerone) 200 mg PO DAILY #30 tabs 10/14/25 aspirin 81 mg chewable tablet 81 mg ng-tube DAILY #30 tabs 10/14/25 atorvastatin 40 mg tablet 40 mg PO BEDTIME #30 tabs 10/14/25 polyethylene glycol 3350 17 gram 17 g PO BID #30 ea 10/14/25 oral powder packet (Miralax) tiotropium bromide 2.5 2 inh inhalation QAM #4 grams 10/26/25 mcg/actuation mist for inhalation Allergies Allergy/AdvReac Type Severity Reaction Status Date / Time Penicillins Allergy Intermediate Unknown Verified 10/27/25 14:40 Review of Systems Const: Denies: fever(s) or chills Card: Denies: chest pain Resp: Reports: dyspnea, non-productive cough, wheezing and chest congestion GI: Denies: abdominal pain : Denies: dysuria, urinary frequency or urinary urgency Musc: Denies: neck pain or back pain Skin/Breast: Denies: rash PFSH ED PFSH: Medical History Pneumothorax with hemothorax, traumatic Stage 3a chronic kidney disease Weight loss Chest pain Multiple sclerosis Type 2 diabetes mellitus without complication, with long-term current use of insulin Anxiety and depression Mixed hyperlipidemia Hypertension COPD (chronic obstructive pulmonary disease) Surgical History History of appendectomy Family History Other Diabetes Hypertension Social History Smoking and tobacco/nicotine status: former use of tobacco/nicotine (2 ppd X 50 years. ) Quit status (tobacco/nicotine): considering quitting Alcohol intake: never Substance/Drug Use: never Lives independently: Yes Household members: spouse Marital status: Current occupational status: unemployed Do you think of yourself as: Straight/Heterosexual Current gender identity: Female Physical Exam Const: COMMON NORMALS: no acute distress GENERAL APPEARANCE: cooperative and comfortable ORIENTATION/CONSCIOUSNESS: Yes awake, Yes oriented to person, Yes oriented to place and Yes oriented to time HENMT: COMMON NORMALS: normocephalic, atraumatic and hearing grossly normal bilaterally HEAD & SCALP: normocephalic and atraumatic Resp: COMMON NORMALS: normal respiratory effort, No retractions, No use of accessory muscles and clear to auscultation bilaterally AUSCULTATION: clear to auscultation bilaterally Cardio: COMMON NORMALS: regular rate, regular rhythm and No murmurs present (Cardio) RATE: regular rate RHYTHM: regular rhythm GI: COMMON NORMALS: Soft to palpation and No hepatosplenomegaly present AUSCULTATION: Yes normoactive bowel sounds PALPATION: Yes Soft to palpation, No Tenderness to palpation present (GI), No Guarding due to palpation present (GI) and Yes No hepatosplenomegaly present Extremity: COMMON NORMALS: normal to inspection, capillary refill normal, no clubbing, cyanosis or edema, no calf tenderness and no pedal edema Neuro: SENSORIUM/ORIENTATION: Yes oriented to person, Yes oriented to place and Yes oriented to time Skin: COMMON NORMALS: no rashes or lesions noted GENERAL SKIN EXAM: no rashes or lesions noted Course Vital Signs: Vital signs: Vital Signs Temperature 98.3 F 10/27/25 15:25 Pulse Rate 77 10/28/25 16:27 Respiratory Rate 18 10/28/25 08:01 Blood Pressure 178/89 10/28/25 16:27 Pulse Oximetry 93 10/28/25 16:27 Oxygen Delivery Me thod Nasal Cannula 10/28/25 12:36 Oxygen Flow Rate 2 10/28/25 12:36 MDM - General Adult Medical Decision Making Medical decision making Social determinants: residential resident, good social support health has been deteriorating since hip fracture I reviewed the patient's medical record. I reviewed the patient's current home meds. Alternate historians: Devon Differential diagnosis: Pneumonia parapneumonic effusion pneumothorax COPD exacerbation Lab Review: No leukocytosis anemia still present but improving hemoglobin 9 2 today. No thrombocytopenia no left shift on CBC. Chemistry show worsening renal function with a creatinine of 2.4 BUN of 37 sodium 139 potassium 5. Lactic acid is 1.4 Imaging: Chest x-ray abdomen, chronic abnormal findings. There is a left pneumothorax noted. CT done same day small left-sided pneumothorax. She has several large blebs. Air-fluid level within the left Bulah at the base of the lung. Assessment of risk Level of risk: Moderate to high Hospitalization considerations: Per recommendation of Dr. Dsouza recommended transfer. Patient and family wish further evaluation given the air-fluid level in the bulla will need to see thoracic surgery. We have made arrangements for transfer to [facility] in [place] waiting on bed assignment Reexamination: Stable Assessment and plan: Patient has severe COPD no apparent pneumonia. Also has acute on chronic kidney injury. Has been started on antibiotics will adjust dose of antibiotics by pharmacy for to account for kidney function. Discussed patient with Dr. Dsouza as well as receiving physician at [facility] in [place] 10/28/2025 at 8:33 AM reviewed patient's chart will repeat labs. Her creatinine was elevated reviewed her home medications ordered meds appropriate for her current condition would not recommend Lasix or metformin at this time we will hold on the digoxin as well since her creatinine is elevated get a toxin level. Repeat her chest x-ray. She has been started on meropenem for pneumonia and her antibiotics are scheduled. Patient transferred to [facility] in good condition. Did take some time prior to bed opening up she is continued on IV antibiotics while here. Lab Data 10/28/25 09:03 10/28/25 09:03 Radiology Impressions Chest X-Ray 10/28/25 08:31 IMPRESSION: Stable to improved abnormal chest. Suggest obtaining an upright PA and lateral chest for comparison to the examination of 10/26/2025 when possible to get a more accurate determination. Foot X-Ray 10/28/25 11:26 IMPRESSION: No acute bone or joint abnormality. Laboratory Results WBC 6.40 10^3/uL (3.29-11.43) 10/28/25 09:03 RBC 3.10 10^6/uL (3.85-5.65) L 10/28/25 09:03 Hgb 8.90 g/dL (11.27-16.99) L 10/28/25 09:03 Hct 30.2 % (36-47) L 10/28/25 09:03 MCV 97.4 fl (85-98) 10/28/25 09:03 MCH 28.7 pg (27-33) 10/28/25 09:03 MCHC 29.5 g/dL (30-55) L 10/28/25 09:03 RDW 19.3 % (12.1-15.1) H 10/28/25 09:03 Plt Count 262 10^3/cmm (157-399) 10/28/25 09:03 MPV 9.6 fL (7.4-10.4) 10/28/25 09:03 Neut % (Auto) 85.7 % 10/28/25 09:03 Lymph % (Auto) 5.8 % 10/28/25 09:03 [place]pin % (Auto) 6.3 % 10/28/25 09:03 Eos % (Auto) 1.1 % 10/28/25 09:03 Baso % (Auto) 0.8 % 10/28/25 09:03 Neut # (Auto) 5.49 10^3/uL (1.8-7.7) 10/28/25 09:03 Lymph # (Auto) 0.4 10^3/uL (0.8-4.8) L 10/28/25 09:03 [place] # (Auto) 0.4 10^3/uL (0.2-0.9) 10/28/25 09:03 Eos # (Auto) 0.1 10^3/uL (0.0-0.8) 10/28/25 09:03 Baso # (Auto) 0.1 10^3/uL (0.0-0.1) 10/28/25 09:03 Nucleated RBC % (auto) 0 % 10/28/25 09:03 Nucleated RBCs # 0.0 /100WBC 10/28/25 09:03 Sodium 141 mmol/L (136-145) 10/28/25 09:03 Potassium 4.4 mmol/L (3.5-5.1) 10/28/25 09:03 Chloride 96 mmol/L (98-107) L 10/28/25 09:03 Carbon Dioxide 37 mmol/L (22-29) H 10/28/25 09:03 Anion Gap 12.4 (5-19) 10/28/25 09:03 BUN 32 mg/dL (8-23) H 10/28/25 09:03 Creatinine 1.8 mg/dL (0.5-0.9) H 10/28/25 09:03 GFR Calculation Not Reportable 10/28/25 09:03 Glucose 231 mg/dL (65-115) H 10/28/25 09:03 POC Glucose 219 mg/dL (70-110) H 10/28/25 09:06 Calculated Osmolality 306 mOsm/kg (285-295) H 10/28/25 09:03 Lactic Acid 1.4 mmol/L (0.5-2.2) 10/27/25 16:36 Calcium 8.7 mg/dL (8.5-10.5) 10/28/25 09:03 Total Bilirubin 0.3 mg/dL (0.15-1.2) 10/27/25 16:36 AST 12 U/L (0-32) 10/27/25 16:36 ALT 14 U/L (0-33) 10/27/25 16:36 Alkaline Phosphatase 122 U/L (35-105) H 10/27/25 16:36 Total Protein 6.6 g/dL (6.6-8.7) 10/27/25 16:36 Albumin 3.4 g/dL (3.5-5.2) L 10/27/25 16:36 Globulin 3.2 g/dL (1.3-4.6) 10/27/25 16:36 Urine Color Yellow (Yellow) 10/27/25 16:55 Urine Appearance Clear (CLEAR) 10/27/25 16:55 Urine pH 5.5 (5-7) 10/27/25 16:55 Ur Specific Mckinney 1.013 (1.005-1.030) 10/27/25 16:55 Urine Protein Trace (Negative) A 10/27/25 16:55 Urine Glucose (UA) Negative (Normal) 10/27/25 16:55 Urine Ketones Negative (Negative) 10/27/25 16:55 Urine Blood Negative (Negative) 10/27/25 16:55 Urine Nitrate Negative (Negative) 10/27/25 16:55 Urine Bilirubin Negative (Negative) 10/27/25 16:55 Urine Urobilinogen 0.2 mg/dL (Negative) 10/27/25 16:55 Ur Leukocyte Esterase Trace (Negative) A 10/27/25 16:55 Urine RBC 0-2 /hpf (0-2) 10/27/25 16:55 Urine WBC 6-10 /hpf (0-5) 10/27/25 16:55 Ur Squamous Epith Cells 0-5 /hpf (0-5) 10/27/25 16:55 Amorphous Sediment Not Reportable 10/27/25 16:55 Urine Bacteria None seen /hpf (NONE) 10/27/25 16:55 Hyaline Casts 12.81 /lpf 10/27/25 16:55 Digoxin 1.1 ng/mL (0.6-1.2) 10/28/25 09:03 All radiology interpretation(s) finalized by discharge EKG Data EKG 1: I personally reviewed and interpreted this EKG as follows: Interpretation: EKG 10/27/2025 1729 atrial fibrillation rate of 90. QTc 305. No acute ST elevation noted. Computer generated interpretation: Chest X-Ray 10/28/25 08:31 IMPRESSION: Stable to improved abnormal chest. Suggest obtaining an upright PA and lateral chest for comparison to the examination of 10/26/2025 when possible to get a more accurate determination. Foot X-Ray 10/28/25 11:26 IMPRESSION: No acute bone or joint abnormality. Discharge Plan Discharge Patient Disposition: Xfer Short-Term Hosp Clinical Impression: Pneumonia, Chronic respiratory failure with hypoxia and hypercapnia, Stage 3a chronic kidney disease, Type 2 diabetes mellitus without complication, with long-term current use of insulin, Pneumothorax on right Atrial fibrillation Qualifiers: Atrial fibrillation type: unspecified Qualified Code(s): I48.91 - Unspecified atrial fibrillation Condition: Stable Referrals: Gonsalo Elliott MD [Primary Care Provider, Internal Medicine] Patient Instructions: Opioid Safety, Pain Management, Patient Portal & Maggie Instructions Print Language: Portuguese Coding Level of Care Code ED Platform Attendant for [facility]
--- NOTE | 2025-10-27 16:00 | XR_ITS ---
WS: [id number] XR chest 1V portable [id number] REASON FOR EXAM: dyspnea/cough FINDINGS: The current chest x-ray is unchanged compared to the previous examination of 10/26/2025. Extensive central lobar emphysema and paraseptal emphysema producing large subpleural bullae in the lung bases and in the superior and lateral aspects of the lungs most notably on the left. There is a left pneumothorax (extent better demonstrated on today's CT scan) which is not changed compared to the previous chest x-ray of 10/26/2025. There is a large air-fluid level in the largest bullae in the left lung base demonstrated on the CT scan which is not readily appreciated on this this examination but is well seen on the lateral view of the previous study. XR/XR chest 1V portable [id number] IMPRESSION: Stable abnormal chest.
[2025-10-27 16:54] LABS: Hematocrit 31.3 % (36-47); Hemoglobin 9.20 g/dL (11.27-16.99); Mean Corpuscular HGB Conc 29.4 g/dL (30-55); Mean Corpuscular Hemoglobin 29.1 pg (27-33); Mean Corpuscular Volume 99.1 fl (85-98); Nucleated Red Blood Cells % 0 %; Platelet Count 273 10^3/cmm (157-399); Red Blood Count 3.16 10^6/uL (3.85-5.65); White Blood Count 7.65 10^3/uL (3.29-11.43)
[2025-10-27 17:12] LABS: Alanine Aminotransferase 14 U/L (0-33); Albumin Level 3.4 g/dL (3.5-5.2); Alkaline Phosphatase 122 U/L (35-105); Anion Gap 13.0 (5-19); Aspartate Amino Transferase 12 U/L (0-32); Blood Urea Nitrogen 37 mg/dL (8-23); Calcium 8.9 mg/dL (8.5-10.5); Carbon Dioxide 36 mmol/L (22-29); Chloride 95 mmol/L (98-107); Globulin 3.2 g/dL (1.3-4.6); Glucose 313 mg/dL (65-115); Osmolality Calculated 309 mOsm/kg (285-295); Potassium 5.0 mmol/L (3.5-5.1); Sodium 139 mmol/L (136-145); Total Protein 6.6 g/dL (6.6-8.7)
[2025-10-27 17:13] LABS: Lactic Sepsis W/Reflex 1.4 mmol/L (0.5-2.2)
--- NOTE | 2025-10-27 17:29 | ECG_ITS ---
[facility] Date: 2025-10-27 Pat Name: Deidra De La Torre Department: Room: Gender: Female Drop Wire Aligner: : 1945 Requested By: Alli Rose Order Number: [id number] Rasta MD: Wily Mayfield M.D. Measurements Intervals [place] Rate: 90 P: 0 GA: 0 QRS: -3 QRSD: 88 T: 120 QT: 249 QTc: 305 Interpretive Statements ATRIAL FIBRILLATION LOW QRS VOLTAGE IN EXTREMITY LEADS [QRS DEFLECTION < 0.5 mV IN LIMB LEADS] NONSPECIFIC T-WAVE ABNORMALITY Compared to ECG 10/08/2025 00:13:18 Sinus rhythm no longer present T-wave abnormality still present Electronically Signed On 10-29-2025 17:31:28 [employer]VAS [employer] JUMPBASTING by Wily Mayfield M.D. [email or web address]
[2025-10-27 17:55] LABS: Glucose Urine UA Negative (Normal); Nitrate Urine Negative (Negative); Specific Gravity, Urine 1.013 (1.005-1.030)
[2025-10-27 18:00] LABS: Add Urine Microscopic? YES
[2025-10-27] MEDS: meropenem 1,000 mg SDV 1000 MG IVP (18:12)
--- OUTSIDE RECORDS SUMMARY | 2025-10-27 18:13 | XMS_ITS | Encounter Summary ---
Author Organization [employer] [facility] Address [address] [place] [address] Care Team Providers Care Box Toe Buffer Name Role Phone Maico Valadez MD, Jef García Primary Care Provider Encounter Details Date Type Department Care Team (Latest Contact Info) Description 10/26/1998 Outpatient Historical [facility] [place] [address] [place] [address] Multiple sclerosis (Primary Dx) Social History Tobacco Use Types Packs/Day Years Used Date Smoking Tobacco: Never Assessed Comments Unknown Sex and Gender Information Value Date Recorded Sex Assigned at Not on file 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
--- OUTSIDE RECORDS SUMMARY | 2025-10-27 18:13 | XMS_ITS | Encounter Summary ---
Author Organization [employer] [facility] Address [address] [place] [address] Care Team Providers Care Client Services Administrator Name Role Phone Maico Valadez MD, Jef García Primary Care Provider Encounter Details Date Type Department Care Team (Latest Contact Info) Description 03/17/1999 Outpatient Historical [facility] eJf Nina Jr., MD [address] [place] [address] Type II or unspecified type diabetes mellitus without mention of complication, not stated as uncontrolled (Primary Dx); Multiple sclerosis Social History Tobacco Use Types Packs/Day Years Used Date Smoking Tobacco: Never Assessed Comments Unknown Sex and Gender Information Value Date Recorded Sex Assigned at Not on file 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
--- OUTSIDE RECORDS SUMMARY | 2025-10-27 18:13 | XMS_ITS | Encounter Summary ---
Author Organization [employer] [facility] Address [address] [place] [address] Care Team Providers Care Strip Machine Tender Name Role Phone Maico Valadez MD, Jef García Primary Care Provider Encounter Details Date Type Department Care Team (Latest Contact Info) Description 01/07/1998 Outpatient Historical HIS 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
--- OUTSIDE RECORDS SUMMARY | 2025-10-27 18:13 | XMS_ITS | Encounter Summary ---
Author Organization [email or web address] [facility] Address [address] [place] [address] Care Team Providers Care Cigarette Book Maker Name Role Phone Maico Valadez MD, Jef García Primary Care Provider Encounter Details Date Type Department Care Team (Latest Contact Info) Description 04/02/2003 Outpatient Historical [facility] Jef Nina Jr., MD [address] [place] [address] HYPERLIPIDEMIA NEC/NOS (Primary Dx); MULTIPLE SCLEROSIS (CMS/HCC); IDIO PERIPH NEURPTHY NOS; DEPRESSIVE DISORDER NEC Social History Tobacco Use Types Packs/Day Years Used Date Smoking Tobacco: Never Assessed Comments Unknown Sex and Gender Information Value Date Recorded Sex Assigned at Not on file 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
--- OUTSIDE RECORDS SUMMARY | 2025-10-27 18:13 | XMS_ITS | Encounter Summary ---
Author Organization [employer] [facility] Address [address] [place] [address] Care Team Providers Care Rolling Chair Pusher Name Role Phone Maico Valadez MD, Jef García Primary Care Provider Encounter Details Date Type Department Care Team (Latest Contact Info) Description 07/15/2003 Outpatient Historical [facility] Jef Nina Jr., MD [address] [place] [address] CHRONIC AIRWAY OBSTRUCTION NEC (CMS/HCC) (Primary Dx); DIABETES UNCOMPL ADULT-TYPE II (CMS/HCC); BRONCHITIS NOS; MULTIPLE SCLEROSIS (CMS/HCC) Social History Tobacco Use Types Packs/Day Years Used Date Smoking Tobacco: Never Assessed Comments Unknown Sex and Gender Information Value Date Recorded Sex Assigned at Not on file 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
--- OUTSIDE RECORDS SUMMARY | 2025-10-27 18:13 | XMS_ITS | Encounter Summary ---
Author Organization [employer] [facility] Address [address] [place] [address] Care Team Providers Care Marketing Automation Manager Name Role Phone Maico Valadez MD, Jef García Primary Care Provider Encounter Details Date Type Department Care Team (Latest Contact Info) Description 09/27/1998 Outpatient Historical [facility] Jef Nina Jr., MD [address] [place] [address] Multiple sclerosis (Primary Dx); Need vaccination-viral disease; Need for prophylactic vaccination against Streptococcus pneumoniae (pneumococcus) Social History Tobacco Use Types Packs/Day Years Used Date Smoking Tobacco: Never Assessed Comments Unknown Sex and Gender Information Value Date Recorded Sex Assigned at Not on file 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
--- OUTSIDE RECORDS SUMMARY | 2025-10-27 18:14 | XMS_ITS | Encounter Summary ---
Author Organization [employer] [facility] Address [address] [place] [address] Care Team Providers Care Combined Rail Operator Name Role Phone Maico Valadez MD, Jef García Primary Care Provider Encounter Details Date Type Department Care Team (Latest Contact Info) Description 07/01/2003 Outpatient Historical [facility] Jef Nina Jr., MD [address] [place] [address] DIABETES UNCOMPL ADULT-TYPE II (CMS/HCC) (Primary Dx); Pure hypercholesterolem; HYPERLIPIDEMIA NEC/NOS; MULTIPLE SCLEROSIS (CMS/[facility]) Social History Tobacco Use Types Packs/Day Years Used Date Smoking Tobacco: Never Assessed Comments Unknown Sex and Gender Information Value Date Recorded Sex Assigned at Not on file Legal 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 Gender Identity Not on file Sexual Orientation Not on file documented as of this encounter Plan of Treatment Not on file documented as of this encounter Visit Diagnoses Diagnosis Type II or unspecified type diabetes mellitus without mention of complication, not stated as uncontrolled- Primary Pure hypercholesterolem Pure hypercholesterolemia Other and unspecified hyperlipidemia Multiple sclerosis documented in this encounter Care Teams Combined Rail Operator Relationship Specialty Start Date End Date Jef Nina Jr., MD [address] [place] [address] PCP - General 03/27/08 documented as of this encounter
--- OUTSIDE RECORDS SUMMARY | 2025-10-27 18:14 | XMS_ITS | Encounter Summary ---
Author Organization [employer] Address [address] [place] [address] Care Team Providers Care Architectural Technician Name Role Phone Maico Valadez MD, Jef García Primary Care Provider Encounter Details Date Type Department Care Team (Latest Contact Info) Description 11/26/2003 Outpatient Historical [facility] Neurology [address], [address] [place] [address] [place] [address] [place] [address] MULTIPLE SCLEROSIS (CMS/HCC) (Primary Dx) Social History Tobacco Use Types Packs/Day Years Used Date Smoking Tobacco: Never Assessed Comments Unknown Sex and Gender Information Value Date Recorded Sex Assigned at Not on file 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
--- OUTSIDE RECORDS SUMMARY | 2025-10-27 18:14 | XMS_ITS | Encounter Summary ---
Author Organization [employer] [facility] Address [address] [place] [address] Care Team Providers Care Pecan Gatherer Name Role Phone Maico Valadez MD, Jef García Primary Care Provider Encounter Details Date Type Department Care Team (Late st Contact Info) Description 09/23/2003 Outpatient Historical [facility] Imaging Services [facility] [address] 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
--- OUTSIDE RECORDS SUMMARY | 2025-10-27 18:14 | XMS_ITS | Encounter Summary ---
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 (Primary Dx) Social History Tobacco Use Types Packs/Day Years Used Date Smoking Tobacco: Never Assessed Comments Unknown Sex and Gender Information Value Date Recorded Sex Assigned at Not on file Legal Sex Female 5:44 AM CRTTS Gender Identity Not on file Sexual Orientation Not on file documented as of this encounter Plan of Treatment Not on file documented as of this encounter Visit Diagnoses Diagnosis buttermaker continuous churn (current) use of anticoagulants- Primary Long-term (current) use of anticoagulants documented in this encounter Care Teams Library Serials Assistant Relationship Specialty Start Date End Date Jef Nina Jr., MD [address] [place] [address] PCP - General 03/27/08 documented as of this encounter
--- OUTSIDE RECORDS SUMMARY | 2025-10-27 18:14 | XMS_ITS | Encounter Summary ---
Author Organization [facility] Address [address] [place] [address] Care Team Providers Care Commodity Specialist Name Role Phone Maico Valadez MD, Jef García Primary Care Provider Encounter Details Date Type Department Care Team (Latest Contact Info) Description 09/17/2003 Outpatient Historical [facility] Neurology [address], [address] [place] [address] [place] [address] [place] [address] MULTIPLE SCLEROSIS (CMS/HCC) (Primary Dx) Social History Tobacco Use Types Packs/Day Years Used Date Smoking Tobacco: Never Assessed Comments Unknown Sex and Gender Information Value Date Recorded Sex Assigned at Not on file Legal Sex Female 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
--- OUTSIDE RECORDS SUMMARY | 2025-10-27 18:14 | XMS_ITS | Patient Health Record ---
Author Organization [facility] Address [address] [place] [address] Care Team Providers Care Candy Cooker Helper Name Role Phone Florentino Govea Primary Care Provider [phone] GOVEAFLORENTINO Unavailable Unavailable Ricky Elliott Unavailable [phone] Allergies Allergen (clinical drug ingredient) Drug/Non Drug Allergy documented on EMR Reaction Allergy Type Onset Date Status lisinopril Lisinopril cough Drug Allergy 05/28/2008 Inac tive Substance with penicillin structure and antibacterial mechanism of action (substance) Penicillins Unknown Drug Allergy 02/03/2004 Active Results Component Value Reference Range Flag Notes Scan--[id number] Reviewed date:08/07/2025 03:18:18 PM Interpretation:Abnormal Performing Lab: Notes/Report: PLT Appear Adequate Aniso Slight Poik Slight Dimorph RBC Present Elliptocytes Few Giant Platelets Present Hypochrom Moderate Polychrom Many Schistocytes Few Echinocyte(Golden Cell) Few RA Factor 94780, 78288 Reviewed date:08/07/2025 03:18:18 PM Interpretation:Normal Performing Lab: Notes/Report: Diagnosis Description: Unspecified osteoarthritis, unspecified site RA Factor 9.3 .0-14.0 IU/mL Result less than 10 Iu/ml will be considered as Negative. Pro BNP 71282 Reviewed date:08/07/2025 03:18:18 PM Interpretation:High Performing Lab: Notes/Report: Diagnosis Description: Heart failure, unspecified PBNP 343.4 .0-125.0 PG/ML HI Thyroid Stimulating Hormone (TSH) 17607 Reviewed date:08/07/2025 03:18:18 PM Interpretation:Normal Performing Lab: Notes/Report: Diagnosis Description: Other group home (current) drug therapy TSH 2.328 .358-3.740 MlU/ML Lipid Panel Reflex DLDL 8006 1, 18539 Reviewed date:08/07/2025 03:18:18 PM Interpretation:High Performing Lab: Notes/Report: Diagnosis Description: Essential (primary) hypertension Trig 352 NA Classification Guidelines:Triglyceride s Adults: >20yrs Desirable <150 Borderline High 150-199 High 200-499 Very high >=500 Children: Male 0-4 yr 22-99 5-9 yr 30-101 10-14 yr 32-125 15-19 yr 37-148 Children: Female 0-4 yr 34-112 5-9 yr 32-105 10-14 yr 37-131 15-19 yr 39-132 Chol 285 <=200 MG/DL HI HDL 51 39-96 MG/DL Reference Ranges:HDL Male: 5-9y 38-75 10-14y 37-74 15-19y 30-63 >=20y 40-59 Female: 5-9y 36-73 10-14y 37-70 15-19y 35-74 >=20y 40-59 CH/HDL 5.6 0.0-4.9 RATIO HI LDL 164 0-130 MG/DL HI LDL result is inaccurate , if Trig is >400 mg/dl. See DLDL result. Hemoglobin A1c 89170 Reviewed date:08/07/2025 03:18:18 PM Interpretation:High Performing Lab: Notes/Report: Diagnosis Description: Other group home (current) drug therapy Hgb A1c 6.9 3.8-6.4 % HI Interpretation Of Hgb A1c: 4.5-6.2 % nondiabetics. >7.0 % diabetics. EAG 151 NA Estimated Aver age Glucose(EAG). Comprehensive Metabolic Pane l (CMP) 90231 Reviewed date:08/07/2025 03:18:18 PM Interpretation:Abnormal Performing Lab: Notes/Report: Diagnosis Description: Essential (primary) hypertension Glucose Serum 205 71-110 MG/DL HI Testing p erformed at [facility], [address] [place] [address] [place] [address]. CLIA ID#: [id number] BUN 26 7-21 MG/DL HI Creat 2.08 .51-1.17 MG/DL HI V-ioedna-q-benzoquinon e imine (NAPQI) is a metabolite of acetaminophen, NAPQI concentrations of apparoximately 10 mg/L correlation to toxic levels of acetaminophen demonstrates a greater than or equil to 10% change in results. NAPQI concentrations greater than this may lead to falsely depressed results for patient samples. Use of this assay is not recommended for patients undergoing treatment with phenindione, due to the potential for falsely depressed results. GFR 23.4 NA Calculation pe rformed from GFR calculator provided by the [employer]. Glomerular Filtration rate(GRF) is the best overall index of kidney function. Normal GFR varies according to age,sex, body size, and declines with age. The [employer] recommends using the CKD-EPI Creatinine Equation(2020) to estimate GFR. BUN/Creat Ratio 12.5 12.0-20.0 % Total Protein 7.0 5.8-8.0 G/DL Albumin 4.1 3.2-4.8 G/DL Globulin 2.9 2.3-3.5 G/DL Alb/Glob 1.4 0.8-2.2 Calcium 9.5 8.7-10.4 MG/DL Sodium 136 136-145 MMOL/L Potassium 4.2 3.5-5.1 MMOL/L Chloride 90 98-107 MMOL/L LOW CO2 34.0 20.0-31.0 MMOL/L HI Anion Gap 16 5-15 HI Alk Phos 97 46-116 Bili Total .2 .3-1.2 MG/DL LOW Use of this assay is not recommended for patients undergoing treatment with eltrombopag due to the potential for falsely elevated results. AST/SGOT 16 15-37 UNIT/L ALT/SGPT 10 12-78 UNIT/L LOW Osmo Serum,Calculated 292 280-300 MOSM/KG CBC w\ Auto Diff 28760 Reviewed date:08/07/2025 03:18:18 PM Interpretation:Abnormal Performing Lab: Notes/Report: Diagnosis Description: Essential (primary) hypertension WBC 7.3 4.5-11.0 X10'3 RBC 3.12 4.00-5.20 X10'6 LOW Hgb 8.5 12.0-16.0 G/DL LOW Hct 30.2 36.0-46.0 % LOW MCV 96.8 80.0-100.0 FL MCH 27.2 27.0-31.0 PG MCHC 28.1 31.0-37.0 G/DL LOW Platelet 315 150-400 X10'3 RDW-SD 54.5 35.0-49.0 FL HI RDW-CV 15.5 12.2-15.6 % MPV 10.6 9.2-12.0 FL Neutro Auto% 72.0 40.0-70.0 % HI Lymph Auto% 14.5 22.0-44.0 % LOW [place] Auto% 7.5 3.0-7.0 % HI Eos Auto% 4.9 2.0-4.0 % HI Baso Auto% 0.7 0.0-1.0 % Imm Gran% .4 .0-.4 % Neutro Abs 5.26 .80-7.70 Absolute Neutrophil Count 5260 NA Lymph Abs 1.06 .10-4.10 [place] Abs .55 .20-1.00 Eos Abs .36 .00-.40 Baso Abs .05 .00-.20 Imm Gran Abs .03 .00-.10 NRBC# .00 .00-.20 X10'3 NRBC% .00 .00-.20 /100 intact WBC's Reason For Referral No Information Medications Medication SIG (Take, Route, Frequency, Duration) Notes Start Date End Date Status Furosemide 20 mg Tablet 2 to 3 tabs a da y as directed orally daily; Duration: 30 days Active Eliquis 5 mg Tablet 1 tab orally twice a day; Duration: 30 days Active Albuterol Sulfate (2.5 MG/3ML) 0.083% Nebulization Solution 1 amp Inhalation 4 times a day prn; Duration: 90 days Active metFORMIN HCl ER 500 mg Tablet Extended Release 24 Hour TAKE ONE TABLET BY MOUTH TWICE DAILY AFTER meals DIRECTED; Duration: 30 Unknown Escitalopram Oxalate 10 mg Tablet TAKE 1 TABLET BY MOUTH EVERY DAY; Duration: 30 Active Lisinopril 10 mg Tablet TAKE ONE TABLET BY MOUTH EVERY DAY; Duration: 60 Unknown traZODone HCl 50 mg Tablet TAKE 1 TO 2 T ABLETS BY MOUTH EVERY NIGHT AT BEDTIME; Duration: 30 Active Tamiflu 75 MG Capsule 1 capsule Orally T wice a day; Duration: 5 day(s) 01/08/2025 Unknown Metoprolol Tartrate 25 mg Tablet TAKE 1 TABLET BY MOUTH TWICE DAILY; Duration: 30 Active amLODIPine Besylate 2.5 mg Tablet TAKE ONE TABLET BY MOUTH EVERY DAY; Duration: 30 Unknown Pantoprazole Sodium 40 mg Tablet Delayed Release TAKE ONE TABLET BY MOUTH EVERY DAY; Duration: 30 Active amLODIPine Besylate 2.5 MG Tablet Oral; Duration: 30 Days Unkn own Budesonide 0.5 MG/2ML Suspension USE 1 vial PER NEBULIZER TWICE DAILY; Duration: 30 Active Escitalopram Oxalate 5 mg Tablet TAKE ONE TABLET BY MOUTH EVERY DAY in THE evening; Duration: 30 Unknown Digoxin 125 mcg Tablet TAKE 1/2 TABLET (0.0625mg) BY MOUTH EVERY OTHER DAY; Duration: 32 Active traZODone HCl 150 mg Tablet TAKE ONE TABLET BY MOUTH AT BEDTIME; Duration: 30 days Unknown ALPRAZolam 0.5 mg Tablet TAKE 1/2 TABLET BY MOUTH THREE TIMES DAILY NEEDED FOR anxiety; Duration: 30 days 05/25/2025 Active Venlafaxine HCl ER 37.5 mg Capsule Extended Release 24 Hour TAKE ONE CAPSULE BY MOUTH DAILY with food.; Duration: 30 Unknown Advair Diskus 250-50 MCG/ACT Aerosol Powder Breath Activated 1 puff Inhalation Twice a day; Duration: 90 days Active Donepezil HCl 5 MG Tablet TAKE ONE TABLE T BY MOUTH EVERY NIGHT AT BEDTIME Oral; Duration: 30 Days Unknown HYDROcodone-Acetaminophen 5-325 MG Tablet 2 tablets as needed Orally every 4 hours; Duration: 30 days 10/26/2025 11/25/2025 Active Immunizations Vaccine Route Administration Date Status Comme nts Fluzone High-Dose Quadrivale nt [facility] Unknown 10/17/2023 Refused Social History Tobacco Use: Social History Observation Description Date Details (start date - stop date) Current Smoker NA - NA Social History Depression Screening Social Info Question Answer Notes depression screening findings Findings Positive (9+ without suicidality) PHQ-9 Little interest or pleasure in doing things Several days Feeling down, depressed, or hopeless Several day s Trouble falling or staying asleep, or sleeping t oo much Several days Feeling tired or having little energy Several da ys Poor appetite or overeating More than half the d ays Feeling bad about yourself, or that you are a failure, or have let yourself or your family down Several days Trouble concentrating on thi ngs, such as reading the newspaper or watching television More than half the days Moving or speaking so slowly that other people could have noticed. Or the opposite ? being so fidgety or restless that you have been moving around a lot more than usual More than half the days Thoughts that you would be b césar off , or of hurting yourself in some way Not at all Total Score 11 Interpretation Moderate Depression Comprehensive Health Assessm ent Social Info Question Answer Notes *Social Determinants of Health Has lack of transportation kept you from medical appointments, meetings, work or from getting things needed for daily living? No Recently, have you worried t hat your food would run out before you got money to buy more? No Do you feel physically and e motionally safe where you currently live? Yes Are you worried about losing your housing? No Have you recently been marie rned that your utilities would be turned off (electricity, gas, or water)? No Availability of resources to meet daily needs? Yes What is your current housing situation? I have housing How many members of your miki n family live with you? (Including yourself) 2 pt and spouse What is the highest level of school that you have completed? High school diploma How many jobs do you work? 0 How many hours do you work o n weekly basis? Other In the past year, have you o r any family members you live with been unable to get any of the following when it was really needed? None all basic needs met How often do you see or talk to people that you care about and feel close to? More than 5 times daily basis How stressed are you? Medium not relate d to basic needs Do you have medical insuranc e through your employer? No Have you served in the [employer]? ([place]) No Tobacco Use: Social Info Question Answer Notes Tobacco Control (Standard) Tobacco use: Current smoker How often do you smoke cigarettes? Some days, but not every day How many cigarettes a day do you smoke? 5 or less Are you interested in quitting? Not ready to quit Section Notes: Depression screen 06/19/2023 s core 11 Depression screen 06/19/2023 s core 11 Depression screen 06/19/2023 s core 11 Depression screen 06/19/2023 s core 11 Depression screen 06/19/2023 s core 11 Depression screen 06/19/2023 s core 11 Depression screen 06/19/2023 s core 11 Depression screen 06/19/2023 s core 11 Depression screen 06/19/2023 s core 11 Depression screen 06/19/2023 s core 11 Depression screen 06/19/2023 s core 11 Depression screen 06/19/2023 s core 11 Depression screen 06/19/2023 s core 11 Depression screen 06/19/2023 s core 11 Depression screen 06/19/2023 s core 11 Depression screen 06/19/2023 s core 11 Depression screen 06/19/2023 s core 11 Depression screen 06/19/2023 s core 11 Depression screen 06/19/2023 s core 11 Depression screen 06/19/2023 s core 11 Depression screen 06/19/2023 s core 11 Depression screen 06/19/2023 s core 11 Depression screen 06/19/2023 s core 11 Depression screen 06/19/2023 s core 11 Depression screen 06/19/2023 s core 11 Depression screen 06/19/2023 s core 11 Depression screen 06/19/2023 s core 11 Depression screen 06/19/2023 s core 11 Depression screen 06/19/2023 s core 11 Depression screen 06/19/2023 s core 11 Problems Problem Type SNOMED Code ICD Code Onset Dates Problem Status W/U Status Risk Notes Problem Type II diabetes mellitus without complication (912628199) Type 2 diabetes mellitus without complications (E11.9) Active confirmed Problem Tobacco user (952167834) Nicotine dependence, cigarettes, uncomplicated (F17.210) Active confirmed Problem Multiple sclerosis (43812613) Multiple sclerosis (G35) Active confirmed Problem Hypertensive heart failure (38200274) Hypertensive heart disease with heart failure (I11.0) Active confirmed Problem Dependence on supplemental oxygen (330366196985) Dependence on supplemental oxygen (Z99.81) Active confirmed Problem Anxiety (76249469) Anxiety (F41.9) Active confi rmed Problem Hypersomnia (03459041) Hypersomnia (G47.10) Active confirmed Problem Recurrent major depression (02254390) Depression, major, recurrent (F33.9) Active confirmed Problem Acute exacerbation o f chronic obstructive airways disease (204561730) COPD with acute exacerbation (J44.1) Active confirmed Problem Depression (190824557) Other depression (F32.89) Active confirmed Problem Osteoarthritis (921118159) Osteoarthritis (M19.90) Active confirmed Problem Pulmonary emphysema (99172713) Pulmonary emphysema, unspecified emphysema type (J43.9) Active confirmed Problem Hypertension (30481011) Hypertension (I10) Active confirmed Problem Heart failure (89562776) Acute heart failure, unspecified heart failure type (I50.9) Active confirmed Problem Chronic hypoxemic respiratory failure (218236414) Chronic hypoxemic respiratory failure (J96.11) Active confirmed Problem Chronic obstructive pulmonary disease (52413408) COPD, moderate (J44.9) Active confirmed Problem Atrial fibrillation (23194447) Atrial fibrillation with RVR (I48.91) Active confirmed Problem Abnormal gait (80997294) Decreased mobility (R26.89) Active confirmed Problem Dyspnea on exertion (44082101) Dyspnea on exertion (R06.00) Active confirmed Problem Chronic kidney disease due to type 2 diabetes mellitus (246691464581) Chronic kidney disease due to type 2 diabetes mellitus (E11.22) Active confirmed Problem Shortness of breath (722226187) Shortness of breath (786.09) 2011 Active confirmed [id number]- Problem Adjustment disorder with depressed mood (74430799) Adjustment disorder with depressed mood (309.0) 2005 Problem resolved confirmed [id number]- Problem Multiple sclerosis (48746827) Multiple sclerosis (340) 2004 Problem resolved confirmed [id number]- Problem Female stress incontinence (25819666) Female stress incontinence (625.6) 2007 Problem resolved confirmed [id number]- Problem Wheezing (34267299) Wheezing (786.07) 2006 Problem resolved confirmed [id number]- Problem Cough (47549383) Cough (786.2) 2006 Problem resolved confirmed [id number]- Problem Generalized anxiety disorder (58036789) Anxiety, generalized (300.02) 2003 Problem resolved confirmed [id number]- Problem Vitamin D deficiency (52814323) Vitamin D deficiency (268.9) 2008 Problem resolved confirmed [id number]- Problem Hypercholesterolemia (05906216) Hypercholesterolemia (272.0) 2009 Problem resolved confirmed [id number]- Problem Moderate recurrent major depression (69916981) Major depression, recurrent episode, moderate (296.32) 2004 Problem resolved confirmed [id number]- Problem 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) Other abnormal laboratory result on blood (790.99) 2008 Problem resolved confirmed [id number]- Problem Sore throat (029682554) Sore Throat (462) 2006 Problem resolved confirmed [id number]- Problem Acne (12606942) Acne (706.1) 2004 Problem resolved confirmed [id number]- Problem Acute exacerbation o f chronic obstructive airways disease (442222896) Acute exacerbation of chronic obstructive pulmonary disease (COPD) (491.21) 2007 Problem resolved confirmed [id number]- Problem Angular cheilitis (410659935) Angular cheilitis (528.5) 2006 Problem resolved confirmed [id number]- Problem Atypical mole syndrome (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) Atypical mole (238.2) 2007 Problem resolved confirmed [id number]- Problem Hypertension (49076163) Hypertension (401.1) 2006 Problem resolved confirmed [id number]- Problem Needs influenza immunization (262728288) Vaccination against other viral diseases, Influenza (V04.81) 2007 Problem resolved confirmed [id number]- Problem Acute upper respiratory infection (89993515) Acute upper respiratory infection (465.8) 2005 Problem resolved confirmed [id number]- Problem Anxiety state (353180186) Anxiety, other type (300.09) 2004 Problem resolved confirmed [id number]- Problem Allergic rhinitis caused by pollen (71544119) Allergic rhinitis, pollen-induced (477.0) 2008 Problem resolved confirmed [id number]- Problem Acne rosacea (168452476) Acne rosacea (695.3) 2003 Problem resolved confirmed [id number]- Problem Chest discomfort (336119331) Chest discomfort (786.59) 2011 Problem resolved confirmed [id number]- Problem Acute upper respiratory infection (66897485) Upper respiratory illness (465.8) 2004 Problem resolved confirmed [id number]- Problem Mixed anxiety and depressive disorder (013171986) Depression with anxiety (300.4) 2009 Problem resolved confirmed [id number]- Problem Type II diabetes mellitus without complication (867350009) NIDDM (250.00) 2005 Problem resolved confirmed [id number]- Problem Diabetes mellitus type 2 (disorder) (53079549) Type 2 diabetes (250.00) 2003 Problem resolved confirmed [id number]- Vital Signs Heart Rate 85 /min 08/06/2025 Temperature 97.7 degrees Fahrenheit 08/06/2025 Respiratory Rate 20 /min 08/06/2025 Height-cm 175.26 cm 08/06/2025 Oximetry 99 % 08/06/2025 Blood pressure diastolic 66 mm Hg 08/06/2025 Height 69 in 08/06/2025 Blood pressure systolic 110 mm Hg 08/06/2025 Encounters Encounter Location Date Provider Diagnosis [facility] Office [address] [address] 08/06/2025 [facility] Depression screen Z13.31 ; Multiple sclerosis G35 ; Acute heart failure, unspecified heart failure type I50.9 ; Chronic kidney disease due to type 2 diabetes mellitus E11.22 ; Dependence on supplemental oxygen Z99.81 ; Osteoarthritis M19.90 ; Hypertension I10 and Drug therapy continued Z79.899 [facility] [address] [place] [address] 10/14/2025 Ricky Elliott Fracture of unspecified part of neck of left femur, subsequent encounter for closed fracture with routine healing S72.002D ; Type 2 diabetes mellitus without complications E11.9 ; Multiple sclerosis, unspecified G35.D ; COPD, moderate J44.9 ; Atrial fibrillation with RVR I48.91 and Acute kidney injury N17.9 [facility] [address] [address] 10/26/2025 [facility] [address] [address] 10/26/2025 [facility] [place] 10/09/2025 [facility] [place] 09/29/2025 [facility] [place] 08/27/2025 [facility] [place] 08/27/2025 [facility] [address] [place] [address] 08/18/2025 [facility] [place] 07/29/2025 [facility] [place] 06/29/2025 [facility] [place] 06/09/2025 [facility] [place] 05/27/2025 [facility] [place] 04/28/2025 [facility] [place] 03/27/2025 [facility] [place] 02/24/2025 [facility] [place] 02/10/[address] [facility] [place] [address] [place] [address] 01/08/2025 [facility] [place] 01/07/[address] [facility] [place] [address] [place] [address] 12/25/[address] [facility] [place] [address] [place] [address] 12/25/[address] [facility] [place] [address] [place] [address] 12/25/[address] [facility] [place] [address] [place] [address] 12/25/[address] [facility] [place] [address] [place] [address] 12/25/2024 [facility] [place] 12/11/[address] [facility] [place] [address] [place] [address] 11/20/2024 [facility] [place] 11/07/2024 [facility] Assessments Encounter Date Diagnosis (ICD Code) Assessment Notes Treatment Notes Treatment Clinical Notes Section Notes 08/06/2025 Multiple sclerosis (ICD-10 - G35) 08/06/2025 Depression screen (ICD-10 - Z13.31) 10/14/2025 Type 2 diabetes mellitus without complications (ICD-10 - E11.9) 10/14/2025 Fracture of unspecified part of neck of left femur, subsequent encounter for closed fracture with routine healing (ICD-10 - S72.002D) Medications reviewed, orders signed and documented with nursing staff. Vitals taken and recorded at [facility]. 16 mins spent in admission 08/06/2025 Acute heart failure, unspecified heart failure type (ICD-10 - I50.9) bnp 10/14/2025 Multiple sclerosis, unspecified (ICD-10 - G35.D) 10/14/2025 COPD, moderate (ICD-10 - J44.9) 08/06/2025 Chronic kidney disease due to type 2 diabetes mellitus (ICD-10 - E11.22) 10/14/2025 Atrial fibrillation with RVR (ICD-10 - I48.91) 08/06/2025 Dependence on supplemental oxygen (ICD-10 - Z99.81) o2 08/06/2025 Osteoarthritis (ICD-10 - M19.90) RA 10/14/2025 Acute kidney injury (ICD-10 - N17.9) 08/06/2025 Hypertension (ICD-10 - I10) cbc cmp lipids 08/06/2025 Drug therapy continued (ICD-10 - Z79.899) ha1c tsh 08/06/2025 Other Questions asked and answered; discharged to home.Venipunctu re performed. Left arm. One attempt, Pt. tolerated well with pressure dressing. Bleeding controlled. Dora Davila RN 10/14/2025 Other Medications reviewed, orders signed and documented with nursing staff. Vitals taken and recorded at [facility]. Plan Of Treatment No Information Insurance Providers Payer Name Payer Address Payer Phone Subscriber Number Group Number Insured Name Patient Relationship to Insured Coverage Start Date Coverage End Date [facility] Medicare Advantage PPO [address] [address] [place] [address] [id number] Deidra De La Torre Self - patient is the insured Medical (General) History Medical History History ICD Code Type 2 Diabetes multiple sclerosis High Blood Pressure hyperlipidemia Surgical History Surgery Date(Month/Year) hemorrhoidectomy; appendectomy Hospitalization History Reason Date(Month/Year) angiogram see surgical history COPD exacer
--- OUTSIDE RECORDS SUMMARY | 2025-10-27 18:15 | XMS_ITS | Encounter Summary ---
Author Organization [facility] Address [address] [place] [address] Care Team Providers Care Software Engineer Backend Name Role Phone Maico Valadez MD, Jef García Primary Care Provider Encounter Details Date Type Department Care Team (Latest Contact Info) Description 09/23/2003 Outpatient Historical [facility] Neurology [address], [address] [place] [address] [place] [address] [place] [address] MULTIPLE SCLEROSIS (CMS/HCC) (Primary Dx) Social History Tobacco Use Types Packs/Day Years Used Date Smoking Tobacco: Never Assessed Comments Unknown Sex and Gender Information Value Date Recorded Sex Assigned at Not on file 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
--- OUTSIDE RECORDS SUMMARY | 2025-10-27 18:15 | XMS_ITS | Encounter Summary ---
Author Organization [facility] Address [address] [place] [address] Care Team Providers Care Jig Boring Machine Set Up Operator Name Role Phone Maico Valadez MD, Jef García Primary Care Provider Encounter Details Date Type Department Care Team (Latest Contact Info) Description 09/11/2006 Outpatient Historical [facility] Neurology [address], [address] [place] [address] [place] [address] [place] [address] Multiple Sclerosis (CMS/HCC) (Primary Dx) Social History Tobacco Use Types Packs/Day Years Used Date Smoking Tobacco: Never Assessed Comments Unknown Sex and Gender Information Value Date Recorded Sex Assigned at Not on file 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
--- OUTSIDE RECORDS SUMMARY | 2025-10-27 18:15 | XMS_ITS | Encounter Summary ---
Author Organization [email or web address] [facility] Address [address] [place] [address] Care Team Providers Care Complaint Evaluation Supervisor Name Role Phone Maico Valadez MD, Jef García Primary Care Provider Encounter Details Date Type Department Care Team (Latest Contact Info) Description 11/20/2002 Outpatient Historical [facility] Jef Nina Jr., MD [address] [place] [address] Pure hypercholesterolem (Primary Dx); HYPERLIPIDEMIA NEC/NOS; GENERALIZED ANXIETY DIS; VACCINE FOR INFLUENZA Social History Tobacco Use Types Packs/Day Years Used Date Smoking Tobacco: Never Assessed Comments Unknown Sex and Gender Information Value Date Recorded Sex Assigned at Not on file Legal Sex Female 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 Gender Identity Not on file Sexual Orientation Not on file documented as of this encounter Plan of Treatment Not on file documented as of this encounter Visit Diagnoses Diagnosis Pure hypercholesterolem- Primary Pure hypercholesterolemia Other and unspecified hyperlipidemia Generalized anxiety disorder Need vaccination-viral disease Need for prophylactic vaccination and inoculation against other viral diseases documented in this encounter Care Teams Complaint Evaluation Supervisor Relationship Specialty Start Date End Date Jef Nina Jr., MD [address] [place] [address] PCP - General 03/27/08 documented as of this encounter
--- OUTSIDE RECORDS SUMMARY | 2025-10-27 18:15 | XMS_ITS | Encounter Summary ---
Author Organization [employer] [facility] Address [address] [place] [address] Care Team Providers Care Refinery Operator Reforming Unit Name Role Phone Maico Valadez MD, Jef García Primary Care Provider Encounter Details Date Type Department Care Team (Latest Contact Info) Description 02/18/2003 Outpatient Historical [facility] Jef Nina Jr., MD [address] [place] [address] Pure hypercholesterolem (Primary Dx); DIZZINESS AND GIDDINESS; ALLERGIC RHINITIS NOS Social History Tobacco Use Types Packs/Day Years Used Date Smoking Tobacco: Never Assessed Comments Unknown Sex and Gender Information Value Date Recorded Sex Assigned at Not on file Legal Sex Female 5: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
--- OUTSIDE RECORDS SUMMARY | 2025-10-27 18:15 | XMS_ITS | Encounter Summary ---
Author Organization [employer] [facility] Address [address] [place] [address] Care Team Providers Care University Services Program Associate Name Role Phone Maico Valadez MD, Jef García Primary Care Provider Encounter Details Date Type Department Care Team (Latest Contact Info) Description 09/02/2007 Outpatient Historical [facility] Neurology [address], [address] [place] [address] [place] [address] [place] [address] Multiple Sclerosis (CMS/HCC) (Primary Dx) Social History Tobacco Use Types Packs/Day Years Used Date Smoking Tobacco: Never Assessed Comments Unknown Sex and Gender Information Value Date Recorded Sex Assigned at Not on file Legal Sex Female 5:44 AM 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
--- OUTSIDE RECORDS SUMMARY | 2025-10-27 18:15 | XMS_ITS | Encounter Summary ---
Author Organization [employer] [facility] Address [address] [place] [address] Care Team Providers Care A P Manager Name Role Phone Maico Valadez MD, Jef García Primary Care Provider Encounter Details Date Type Department Care Team (Latest Contact Info) Description 03/31/1999 Outpatient Historical [facility] Jef Nina Jr., MD [address] [place] [address] Routine medical exam (Primary Dx); Anal or rectal pain; Multiple sclerosis; Need for prophylactic hormone replacement therapy (postmenopausal) Social History Tobacco Use Types Packs/Day Years Used Date Smoking Tobacco: Never Assessed Comments Unknown Sex and Gender Information Value Date Recorded Sex Assigned at Not on file Legal Sex Female 5:44 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
--- OUTSIDE RECORDS SUMMARY | 2025-10-27 18:15 | XMS_ITS | Encounter Summary ---
Author Organization [employer] [facility] Address [address] [place] [address] Care Team Providers Care Box Car Bracer Name Role Phone Maico Valadez MD, Jef García Primary Care Provider Encounter Details Date Type Department Care Team (Latest Contact Info) Description 11/20/2002 Outpatient Historical [facility] Jef Nina Jr., MD [address] [place] [address] PURE HYPERCHOLESTEROLEM (Primary Dx) Social History Tobacco Use Types Packs/Day Years Used Date Smoking Tobacco: Never Assessed Comments Unknown Sex and Gender Information Value Date Recorded Sex Assigned at Not on file Legal Sex Female 5:44 AM TECHNOLOGY ARCHITECT Gender Identity Not on file Sexual Orientation Not on file documented as of this encounter Plan of Treatment Not on file documented as of this encounter Visit Diagnoses Diagnosis Pure hypercholesterolemia- Primary documented in this encounter Care Teams Box Car Bracer Relationship Specialty Start Date End Date Jef Nina Jr., MD [address] [place] [address] PCP - General 03/27/08 documented as of this encounter
--- OUTSIDE RECORDS SUMMARY | 2025-10-27 18:15 | XMS_ITS | Encounter Summary ---
Author Organization [employer] [facility] Address [address] [place] [address] Care Team Providers Care Principal Military Analyst Name Role Phone Maico Valadez MD, Jef García Primary Care Provider Encounter Details Date Type Department Care Team (Latest Contact Info) Description 03/22/1999 Outpatient Historical [facility] Jef Nina Jr., MD [address] [place] [address] Pure hypercholesterolem (Primary Dx); Anxiety state, unspecified Social History Tobacco Use Types Packs/Day Years Used Date Smoking Tobacco: Never Assessed Comments Unknown Sex and Gender Information Value Date Recorded Sex Assigned at Not on file Legal Sex Female 5:44 AM SUPERINTENDENT TERMINAL Gender Identity Not on file Sexual Orientation Not on file documented as of this encounter Plan of Treatment Not on file documented as of this encounter Visit Diagnoses Diagnosis Pure hypercholesterolem- Primary Pure hypercholesterolemia Anxiety state, unspecified documented in this encounter Care Teams Principal Military Analyst Relationship Specialty Start Date End Date Jef Nina Jr., MD [address] [place] [address] PCP - General 03/27/08 documented as of this encounter
--- OUTSIDE RECORDS SUMMARY | 2025-10-27 18:15 | XMS_ITS | Encounter Summary ---
Author Organization [employer] [facility] Address [address] [place] [address] Care Team Providers Care Can Capper Name Role Phone Maico Valadez MD, Jef García Primary Care Provider Encounter Details Date Type Department Care Team (Late st Contact Info) Description 04/02/2003 Outpatient Historical [facility] Jef Nina Jr., MD [address] [place] [address] IDIO PERIPH NEURPTHY NOS (Primary Dx) Social History Tobacco Use Types Packs/Day Years Used Date Smoking Tobacco: Never Assessed Comments Unknown Sex and Gender Information Value Date Recorded Sex Assigned at Not on file Legal Sex Female 5: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
--- OUTSIDE RECORDS SUMMARY | 2025-10-27 18:16 | XMS_ITS | Encounter Summary ---
Author Organization [employer] [facility] Address [address] [place] [address] Care Team Providers Care Casting Machine Service Operator Name Role Phone Maico Valadez MD, Jef García Primary Care Provider Encounter Details Date Type Department Care Team (Latest Contact Info) Description 09/22/1999 Outpatient Historical [facility] Jef Nina Jr., MD [address] [place] [address] Pneumonia, organism unspecified(486) (Primary Dx); Multiple sclerosis Social History Tobacco Use Types Packs/Day Years Used Date Smoking Tobacco: Never Assessed Comments Unknown Sex and Gender Information Value Date Recorded Sex Assigned at Not on file Legal Sex Female 5:44 AM LINDERMAN OPERATOR Gender Identity Not on file Sexual Orientation Not on file documented as of this encounter Plan of Treatment Not on file documented as of this encounter Visit Diagnoses Diagnosis Pneumonia, organism unspecified(486)- Primary Pneumonia, organism unspecified Multiple sclerosis documented in this encounter Care Teams Casting Machine Service Operator Relationship Specialty Start Date End Date Jef Nina Jr., MD [address] [place] [address] PCP - General 03/27/08 documented as of this encounter
--- OUTSIDE RECORDS SUMMARY | 2025-10-27 18:16 | XMS_ITS | Encounter Summary ---
Author Organization [facility] Address [address] [place] [address] Care Team Providers Care Senior Contract Specialist Name Role Phone Maico Valadez MD, Jef García Primary Care Provider Encounter Details Date Type Department Care Team (Latest Contact Info) Description 08/08/2004 Outpatient Historical [facility] [place] Neurology [address], [address] [place] [address] [place] [address] [place] [address] MULTIPLE SCLEROSIS (CMS/HCC) (Primary Dx) Social History Tobacco Use Types Packs/Day Years Used Date Smoking Tobacco: Never Assessed Comments Unknown Sex and Gender Information Value Date Recorded Sex Assigned at Not on file Legal Sex Female 5:44 AM 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
--- OUTSIDE RECORDS SUMMARY | 2025-10-27 18:16 | XMS_ITS | Clinical Summary ---
Author Organization [facility] Address [address] [place]: Epic Prelude ADT [place] [address] Care Team Providers Care Medical Policy Specialist Name Role Phone Maico Valadez MD, Jef García Primary Care Provider Active Problems Problem Noted Date Diagnosed Date Multiple sclerosis 03/18/2009 Encounters Date Type Department Care Team Description 10/27/2025 Hospital Encounter [address] [facility] [address] [place] [address] Perry Feliz MD from Last 3 Months Immunizations Immunization Administration Dates Next Due (PNEUMOVAX 23)(50 YRS UP) PN EUMOCOCCAL POLYSACCHARIDE (PPV23) 0.5 ML, IM 06/22/2004,09/26/2002,09/27/1998 Influenza Seasonal Unspecifi ed Formulation IM 11/20/2002 Social History Tobacco Use Types Packs/Day Years Used Date Smoking Tobacco: Never Assessed Comments Unknown Sex and Gender Information Value Date Recorded Sex Assigned at Not on file Legal Sex Female 4:05 PM PSYCHIC READER Gender Identity Not on file Sexual Orientation Not on file Plan of Treatment Health Maintenance Due Date Last Done Comments DTAP/TDAP/TD VACCINES (1 - Tdap) 1962 ZOSTER VACCINE (1 of 2) 1993 PNEUMOCOCCAL VACCINE 50+ YEA RS (2 of 2 - PCV) 06/22/2005 06/22/2004, 09/26/2002, 09/27/1998 OSTEOPOROSIS SCREENING 2008 RSV VACCINE (60+ or ) (1 - 1-dose 75+ series) 2018 INFLUENZA VACCINE (#1) 2025 11/20/2002 Care Teams Medical Policy Specialist Relationship Specialty Start Date End Date Jef Nina Jr., MD [address] [place] [address] PCP - General 03/27/08
--- OUTSIDE RECORDS SUMMARY | 2025-10-27 18:16 | XMS_ITS | Encounter Summary ---
Author Organization [employer] [facility] Address [address] [place] [address] Care Team Providers Care Rail Car Driver Name Role Phone Maico Valadez MD, Jef García Primary Care Provider Encounter Details Date Type Department Care Team (Latest Contact Info) Description 04/27/1999 Outpatient Historical [facility] Dimas Cervantes MD [address] [place] [address] Anal or rectal pain (Primary Dx) Social History Tobacco Use Types Packs/Day Years Used Date Smoking Tobacco: Never Assessed Comments Unknown Sex and Gender Information Value Date Recorded Sex Assigned at Not on file Legal Sex Female 5:44 AM SIZING END BANDER Gender Identity Not on file Sexual Orientation Not on file documented as of this encounter Plan of Treatment Not on file documented as of this encounter Visit Diagnoses Diagnosis Anal or rectal pain- Primary documented in this encounter Care Teams Rail Car Driver Relationship Specialty Start Date End Date Jef Nina Jr., MD [address] [place] [address] PCP - General 03/27/08 documented as of this encounter
--- OUTSIDE RECORDS SUMMARY | 2025-10-27 18:18 | XMS_ITS | Encounter Summary ---
Author Organization [facility] Address [address] [place] [address] Care Team Providers Care Director Education Name Role Phone Macio Valadez MD, Jef García Primary Care Provider Encounter Details Date Type Department Care Team (Latest Contact Info) Description 11/16/2004 Outpatient Historical [facility] Neurology [address], [address] [place] [address] [place] [address] [place] [address] MULTIPLE SCLEROSIS (CMS/HCC) (Primary Dx) Social History Tobacco Use Types Packs/Day Years Used Date Smoking Tobacco: Never Assessed Comments Unknown Sex and Gender Information Value Date Recorded Sex Assigned at Not on file Legal Sex Female 5:44 AM CONTRACTS PARALEGAL Gender Identity Not on file Sexual Orientation Not on file documented as of this encounter Plan of Treatment Not on file documented as of this encounter Visit Diagnoses Diagnosis Multiple sclerosis- Primary documented in this encounter Care Teams Director Education Relationship Specialty Start Date End Date Jef Nina Jr., MD [address] [place] [phone] PCP - General 03/27/08 documented as of this encounter
--- OUTSIDE RECORDS SUMMARY | 2025-10-27 18:18 | XMS_ITS | Encounter Summary ---
Author Organization [facility] Address [address] [place] [address] Care Team Providers Care Tire Mounter Name Role Phone Maico Valadez MD, Jef García Primary Care Provider Encounter Details Date Type Department Care Team (Latest Contact Info) Description 04/20/2004 Outpatient Historical [facility] Neurology [address], [address] [place] [address] [place] [address] [place] [address] MULTIPLE SCLEROSIS (CMS/HCC) (Primary Dx) Social History Tobacco Use Types Packs/Day Years Used Date Smoking Tobacco: Never Assessed Comments Unknown Sex and Gender Information Value Date Recorded Sex Assigned at Not on file Legal Sex Female 5:44 AM COMMUNITY 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
--- OUTSIDE RECORDS SUMMARY | 2025-10-27 18:20 | XMS_ITS | Clinical Summary ---
Author Organization [facility] Address [address] [place] [address] Phone Care Team Providers Care Radiology Nurse Name Role Phone Maico Valadez MD, Jef [...] on file Legal Sex Female 5:44 AM FUEL RETROFITTING TECHNICIAN Gender Identity Not on file Sexual [...] FIT/FOBT Q 1 year Discontinued Insurance MEDICAID [place] PART A [place] B Care Teams Radiology Nurse Relationship Specialty Start Date End Date Jef Nina Jr., MD [address] [place] [address] PCP - General 03/27/08
--- OUTSIDE RECORDS SUMMARY | 2025-10-27 18:20 | XMS_ITS | Encounter Summary ---
Author Organization [facility] Address [address] [place]: [place] [address] Care Team Providers Care County Attorney Name Role Phone Maico Valadez MD, Jef García Primary Care Provider Encounter Details Date Type Department Care Team (Late st Contact Info) Description 09/10/2001 Out[place] [address] [place] [address] Social History Tobacco Use Types Packs/Day Years Used Date Smoking Tobacco: Never Assessed Comments Unknown Sex and Gender Information Value Date Recorded Sex Assigned at Not on file Legal Sex Female 5:44 AM CELL BIOLOGIST Gender Identity Not on file Sexual Orientation Not on file documented as of this encounter Plan of Treatment Not on file documented as of this encounter Visit Diagnoses Not on filedocumented in this encounter Care Teams County Attorney Relationship Specialty Start Date End Date Jef Nian Jr., MD [address] [place] [phone] PCP - General 03/27/08 documented as of this encounter
--- OUTSIDE RECORDS SUMMARY | 2025-10-27 18:21 | XMS_ITS | Encounter Summary ---
Author Organization [facility] Address [address] [place] [address] Care Team Providers Care Health Assessment And Treatment Teacher Name Role Phone Maico Valadez MD, Jef García Primary Care Provider Encounter Details Date Type Department Care Team (Latest Contact Info) Description 09/10/2001 Outpatient Historical [facility] Neurology [address], [address] [place] [address] [place] [address] [place] [address] Multiple sclerosis (Primary Dx) Social History Tobacco Use Types Packs/Day Years Used Date Smoking Tobacco: Never Assessed Comments Unknown Sex and Gender Information Value Date Recorded Sex Assigned at Not on file Legal Sex Female 5:44 AM JEWELRY TECHNICIAN Gender Identity Not on file Sexual Orientation Not on file documented as of this encounter Plan of Treatment Not on file documented as of this encounter Visit Diagnoses Diagnosis Multiple sclerosis- Primary documented in this encounter Care Teams Health Assessment And Treatment Teacher Relationship Specialty Start Date End Date Jef Nina Jr., MD [address] [place] [address] PCP - General 03/27/08 documented as of this encounter
--- OUTSIDE RECORDS SUMMARY | 2025-10-27 18:21 | XMS_ITS | Encounter Summary ---
Author Organization [employer] [facility] Address [address] [place] [address] Care Team Providers Care Rehabilitation Clerk Name Role Phone Maico Valadez MD, Jef García Primary Care Provider Encounter Details Date Type Department Care Team (Latest Contact Info) Description 12/19/2001 Outpatient Historical [facility] Jef Nina Jr., MD [address] [place] [address] Pure hypercholesterolem (Primary Dx); OSTEOPOROSIS NOS; GENERALIZED ANXIETY DIS Social History Tobacco Use Types Packs/Day Years Used Date Smoking Tobacco: Never Assessed Comments Unknown Sex and Gender Information Value Date Recorded Sex Assigned at Not on file Legal Sex Female 5:44 AM CLINICAL LABORATORY MANAGER Gender Identity Not on file Sexual Orientation Not on file documented as of this encounter Plan of Treatment Not on file documented as of this encounter Visit Diagnoses Diagnosis Pure hypercholesterolem- Primary Pure hypercholesterolemia Osteoporosis, unspecified Generalized anxiety disorder documented in this encounter Care Teams Rehabilitation Clerk Relationship Specialty Start Date End Date Jef Nian Jr., MD [address] [place] [address] PCP - General 03/27/08 documented as of this encounter
--- OUTSIDE RECORDS SUMMARY | 2025-10-27 18:21 | XMS_ITS | Encounter Summary ---
Author Organization [employer] [facility] Address [address] [place] [address] Care Team Providers Care Personal Injury Litigation Paralegal Name Role Phone Maico Valadez MD, Jef García Primary Care Provider Encounter Details Date Type Department Care Team (Latest Contact Info) Description 12/30/2001 Outpatient Historical [facility] Jef Nina Jr., MD [address] [place] [address] HYPERLIPIDEMIA NEC/NOS (Primary Dx); ACNE NEC; ROSACEA Social History Tobacco Use Types Packs/Day Years Used Date Smoking Tobacco: Never Assessed Comments Unknown Sex and Gender Information Value Date Recorded Sex Assigned at Not on file Legal Sex Female 5:44 AM INTERNATIONAL COORDINATOR Gender Identity Not on file Sexual Orientation Not on file documented as of this encounter Plan of Treatment Not on file documented as of this encounter Visit Diagnoses Diagnosis Other and unspecified hyperlipidemia- Primary Other acne Rosacea documented in this encounter Care Teams Personal Injury Litigation Paralegal Relationship Specialty Start Date End Date Jef Nina Jr., MD [address] [place] [address] PCP - General 03/27/08 documented as of this encounter
--- OUTSIDE RECORDS SUMMARY | 2025-10-27 18:22 | XMS_ITS | Encounter Summary ---
Author Organization [employer] [facility] Address [address] [place] [address] Care Team Providers Care Trailer Chief Name Role Phone Maico Valadez MD, Jef García Primary Care Provider Encounter Details Date Type Department Care Team (Late st Contact Info) Description 09/06/2000 Outpatient Historical [place] [address] [place] [address] Encounter for long-term (current) use of other medications (Primary Dx); Multiple sclerosis Social History Tobacco Use Types Packs/Day Years Used Date Smoking Tobacco: Never Assessed Comments Unknown Sex and Gender Information Value Date Recorded Sex Assigned at Not on file Legal Sex Female 5:44 AM SKOOG MACHINE OPERATOR Gender Identity Not on file Sexual Orientation Not on file documented as of this encounter Plan of Treatment Not on file documented as of this encounter Visit Diagnoses Diagnosis Encounter for long-term (current) use of other medications- Primary Multiple sclerosis documented in this encounter Care Teams Trailer Chief Relationship Specialty Start Date End Date Jef Nina Jr., MD [address] [place] [phone] PCP - General 03/27/08 documented as of this encounter
--- OUTSIDE RECORDS SUMMARY | 2025-10-27 18:22 | XMS_ITS | Encounter Summary ---
Author Organization [employer] Address [address] [place]: [place] [address] Care Team Providers Care Aluminum Boats Assembler Name Role Phone Maico Valadez MD, Jef García Primary Care Provider Encounter Details Date Type Department Care Team (Late st Contact Info) Description 01/11/2001 Outpatient Historical Jef Nina Jr., MD [address] [place] [address] Social History Tobacco Use Types Packs/Day Years Used Date Smoking Tobacco: Never Assessed Comments Unknown Sex and Gender Information Value Date Recorded Sex Assigned at Not on file Legal Sex Female 5:44 AM AUTOMOTIVE SOFTWARE ENGINEER Gender Identity Not on file Sexual Orientation Not on file documented as of this encounter Plan of Treatment Not on file documented as of this encounter Visit Diagnoses Not on filedocumented in this encounter Care Teams Aluminum Boats Assembler Relationship Specialty Start Date End Date Jef Nina Jr., MD [address] [place] [phone] PCP - General 03/27/08 documented as of this encounter
--- OUTSIDE RECORDS SUMMARY | 2025-10-27 18:22 | XMS_ITS | Encounter Summary ---
Author Organization [employer] Address [address] 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
--- OUTSIDE RECORDS SUMMARY | 2025-10-27 18:22 | XMS_ITS | Encounter Summary ---
Author Organization [employer] Address [address] 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
--- OUTSIDE RECORDS SUMMARY | 2025-10-27 18:22 | XMS_ITS | Encounter Summary ---
Author Organization [employer] [facility] Address [address] [place] [address] Care Team Providers Care Cashier Ticket Selling Name Role Phone Maico Valadez MD, Jef García Primary Care Provider Encounter Details Date Type Department Care Team (Latest Contact Info) Description 11/15/1999 Outpatient Historical HIS 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
--- OUTSIDE RECORDS SUMMARY | 2025-10-27 18:22 | XMS_ITS | Encounter Summary ---
Author Organization [employer] [facility] Address [address] [place] [address] Care Team Providers Care Crepe Machine Operator Name Role Phone Maico Valadez MD, Jef García Primary Care Provider Encounter Details Date Type Department Care Team (Latest Contact Info) Description 01/10/2001 Outpatient Historical [facility] Jef Nina Jr., MD [address] [place] [address] Multiple sclerosis (Primary Dx); Mucous polyp of cervix; Screening for malignant neoplasm of the cervix; Special screening for malignant neoplasms of other sites Social History Tobacco Use Types Packs/Day Years Used Date Smoking Tobacco: Never Assessed Comments Unknown Sex and Gender Information Value Date Recorded Sex Assigned at Not on file Legal Sex Female 5:44 AM MANAGER OF ALLIED HEALTH SERVICES Gender Identity Not on file Sexual Orientation Not on file documented as of this encounter Plan of Treatment Not on file documented as of this encounter Visit Diagnoses Diagnosis Multiple sclerosis- Primary Mucous polyp of cervix Screening for malignant neoplasm of the cervix Special screening for malignant neoplasms of other sites documented in this encounter Care Teams Crepe Machine Operator Relationship Specialty Start Date End Date Jef Nina Jr., MD [address] [place] [address] PCP - General 03/27/08 documented as of this encounter
--- OUTSIDE RECORDS SUMMARY | 2025-10-27 18:22 | XMS_ITS | Encounter Summary ---
Author Organization [employer] [facility] Address [address] [place] [address] Care Team Providers Care Manager Continuous Improvement Name Role Phone Maico Valadez MD, Jef García Primary Care Provider Encounter Details Date Type Department Care Team (Latest Contact Info) Description 11/29/2000 Outpatient Historical [facility] Jef Nina Jr., MD [address] [place] [address] Esophageal reflux (Primary Dx); Multiple sclerosis Social History Tobacco Use Types Packs/Day Years Used Date Smoking Tobacco: Never Assessed Comments Unknown Sex and Gender Information Value Date Recorded Sex Assigned at Not on file Legal Sex Female 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
--- OUTSIDE RECORDS SUMMARY | 2025-10-27 18:23 | XMS_ITS | Encounter Summary ---
Author Organization [employer] Address [address] 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
--- OUTSIDE RECORDS SUMMARY | 2025-10-27 18:23 | XMS_ITS | Encounter Summary ---
Author Organization [employer] [facility] Address [address] [place] [address] Care Team Providers Care Stonemason Supervisor Name Role Phone Maico Valadez MD, Jef García Primary Care Provider Encounter Details Date Type Department Care Team (Latest Contact Info) Description 04/25/2002 Outpatient Historical [facility] Jef Nina Jr., MD [address] [place] [address] Abn Pap Smear-Cervix (Primary Dx) Social History Tobacco Use Types Packs/Day Years Used Date Smoking Tobacco: Never Assessed Comments Unknown Sex and Gender Information Value Date Recorded Sex Assigned at Not on file Legal Sex Female 5:44 AM HEAVY THREADER Gender Identity Not on file Sexual Orientation Not on file documented as of this encounter Plan of Treatment Not on file documented as of this encounter Visit Diagnoses Diagnosis Abn Pap Smear-Cervix- Primary Abnormal Papanicolaou smear of cervix and cervical HPV documented in this encounter Care Teams Stonemason Supervisor Relationship Specialty Start Date End Date Jef Nina Jr., MD [address] [place] [address] PCP - General 03/27/08 documented as of this encounter
--- OUTSIDE RECORDS SUMMARY | 2025-10-27 18:23 | XMS_ITS | Encounter Summary ---
Author Organization [employer] Address [address] 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
--- OUTSIDE RECORDS SUMMARY | 2025-10-27 18:23 | XMS_ITS | Encounter Summary ---
Author Organization [employer] [facility] Address [address] [place] [address] Care Team Providers Care Teenage Program Director Name Role Phone Maico Valadez MD, Jef García Primary Care Provider Encounter Details Date Type Department Care Team (Latest Contact Info) Description 07/09/2002 Outpatient Historical [facility] Jef Nina Jr., MD [address] [place] [address] MULTIPLE SCLEROSIS (CMS/HCC) (Primary Dx); Abn Pap Smear-Cervix Social History Tobacco Use Types Packs/Day Years Used Date Smoking Tobacco: Never Assessed Comments Unknown Sex and Gender Information Value Date Recorded Sex Assigned at Not on file Legal Sex Female 5:44 AM SALESPERSON AUTOMOBILES Gender Identity Not on file Sexual Orientation Not on file documented as of this encounter Plan of Treatment Not on file documented as of this encounter Visit Diagnoses Diagnosis Multiple sclerosis- Primary Abn Pap Smear-Cervix Abnormal Papanicolaou smear of cervix and cervical HPV documented in this encounter Care Teams Teenage Program Director Relationship Specialty Start Date End Date Jef Nina Jr., MD [address] [place] [address] PCP - General 03/27/08 documented as of this encounter
[2025-10-27 18:24] LABS: UA Slide Review UA Slide Review Perf
--- OUTSIDE RECORDS SUMMARY | 2025-10-27 18:24 | XMS_ITS | Encounter Summary ---
Author Organization [facility] Address [address] [place] [address] Care Team Providers Care Ccna Name Role Phone Maico Valadez MD, Jef García Primary Care Provider Encounter Details Date Type Department Care Team (Latest Contact Info) Description 09/15/2002 Outpatient Historical [facility] [address], [address] [place] [address] [place] [address] [place] [address] MULTIPLE SCLEROSIS (CMS/HCC) (Primary Dx) Social History Tobacco Use Types Packs/Day Years Used Date Smoking Tobacco: Never Assessed Comments Unknown Sex and Gender Information Value Date Recorded Sex Assigned at Not on file Legal Sex Female 5:44 AM MOLASSES PREPARER Gender Identity Not on file Sexual Orientation Not on file documented as of this encounter Plan of Treatment Not on file documented as of this encounter Visit Diagnoses Diagnosis Multiple sclerosis- Primary documented in this encounter Care Teams Ccna Relationship Specialty Start Date End Date Jef Nina Jr., MD [address] [place] [phone] PCP - General 03/27/08 documented as of this encounter
--- OUTSIDE RECORDS SUMMARY | 2025-10-27 18:24 | XMS_ITS | Encounter Summary ---
Author Organization [employer] Address [address] 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
--- OUTSIDE RECORDS SUMMARY | 2025-10-27 18:24 | XMS_ITS | Encounter Summary ---
Author Organization [employer] [facility] Address [address] [place] [address] Care Team Providers Care Char Conveyor Tender Cellar Name Role Phone Maico Valadez MD, Jef García Primary Care Provider Encounter Details Date Type Department Care Team (Late st Contact Info) Description 09/26/2002 Outpatient Historical [facility] Jef Nina Jr., MD [address] [place] [address] MULTIPLE SCLEROSIS (CMS/HCC) (Primary Dx) Social History Tobacco Use Types Packs/Day Years Used Date Smoking Tobacco: Never Assessed Comments Unknown Sex and Gender Information Value Date Recorded Sex Assigned at Not on file Legal Sex Female 5:44 AM 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
--- OUTSIDE RECORDS SUMMARY | 2025-10-27 18:26 | XMS_ITS | Encounter Summary ---
Author Organization [employer] [facility] Address [address] [place] [address] Care Team Providers Care Booking Officer Name Role Phone Maico Valadez MD, Jef García Primary Care Provider Encounter Details Date Type Department Care Team (Latest Contact Info) Description 02/20/2002 Outpatient Historical [facility] Jef Nina Jr., MD [address] [place] [address] Pure hypercholesterolem (Primary Dx); DEPRESSIVE DISORDER NEC; MULTIPLE SCLEROSIS ([facility]) Social History Tobacco Use Types Packs/Day Years Used Date Smoking Tobacco: Never Assessed Comments Unknown Sex and Gender Information Value Date Recorded Sex Assigned at Not on file Legal Sex Female 5:44 AM ENTRY WRITER Gender Identity Not on file Sexual Orientation Not on file documented as of this encounter Plan of Treatment Not on file documented as of this encounter Visit Diagnoses Diagnosis Pure hypercholesterolem- Primary Pure hypercholesterolemia Depressive disorder, not elsewhere classified Multiple sclerosis documented in this encounter Care Teams Booking Officer Relationship Specialty Start Date End Date Jef Nina Jr., MD [address] [place] [address] PCP - General 03/27/08 documented as of this encounter
--- OUTSIDE RECORDS SUMMARY | 2025-10-27 18:27 | XMS_ITS | Encounter Summary ---
Author Organization [employer] [facility] Address [address] [place] [address] Care Team Providers Care Fiberglass Quality Technician Name Role Phone Maico Valadez MD, Jef García Primary Care Provider Encounter Details Date Type Department Care Team (Latest Contact Info) Description 04/03/2002 Outpatient Historical [facility] Jef Nina Jr., MD [address] [place] [address] MULTIPLE SCLEROSIS (CMS/[facility]) (Primary Dx); Abn Pap Smear-Cervix; DEPRESSIVE DISORDER NEC; TOBACCO USE DISORDER Social History Tobacco Use Types Packs/Day Years Used Date Smoking Tobacco: Never Assessed Comments Unknown Sex and Gender Information Value Date Recorded Sex Assigned at Not on file Legal Sex Female 5:44 AM ROVING TELLER Gender Identity Not on file Sexual Orientation Not on file documented as of this encounter Plan of Treatment Not on file documented as of this encounter Visit Diagnoses Diagnosis Multiple sclerosis- Primary Abn Pap Smear-Cervix Abnormal Papanicolaou smear of cervix and cervical HPV Depressive disorder, not elsewhere classified Tobacco use disorder documented in this encounter Care Teams Fiberglass Quality Technician Relationship Specialty Start Date End Date Jef Nina Jr., MD [address] [place] [address] PCP - General 03/27/08 documented as of this encounter
--- OUTSIDE RECORDS SUMMARY | 2025-10-27 18:27 | XMS_ITS | Encounter Summary ---
Author Organization [facility] Address [address] [place] [address] Care Team Providers Care Cook Helper Name Role Phone Maico Valadez MD, Jef García Primary Care Provider Encounter Details Date Type Department Care Team (Latest Contact Info) Description 02/10/2002 Outpatient Historical [facility] Jef Nina Jr., MD [address] [place] [address] Pure hypercholesterolem (Primary Dx); HYPERLIPIDEMIA NEC/NOS; AFTERCARE AGRIBUSINESS PROFESSOR USE MEDICATN Social History Tobacco Use Types Packs/Day Years Used Date Smoking Tobacco: Never Assessed Comments Unknown Sex and Gender Information Value Date Recorded Sex Assigned at Not on file Legal Sex Female 5:44 AM BENEFITS REPRESENTATIVE Gender Identity Not on file Sexual Orientation Not on file documented as of this encounter Plan of Treatment Not on file documented as of this encounter Visit Diagnoses Diagnosis Pure hypercholesterolem- Primary Pure hypercholesterolemia Other and unspecified hyperlipidemia Encounter for long-term (current) use of other medications documented in this encounter Care Teams Cook Helper Relationship Specialty Start Date End Date Jef Nina Jr., MD [address] [place] [address] PCP - General 03/27/08 documented as of this encounter
[2025-10-28] VITALS (18 sets, daily range): BP systolic 118–178; BP diastolic 57–107; PULSE 69–103; RESP 18; O2SAT 93–100
[2025-10-28] MEDS: meropenem 1,000 mg SDV 1000 MG IV (06:30)
--- NOTE | 2025-10-28 08:31 | XR_ITS ---
WS: [id number] XR chest 1V portable [id number] REASON FOR EXAM: dyspnea/cough FINDINGS: Difficult to evaluate for pneumothorax due to the significant paraseptal emphysematous subpleural bullae. There does appear to be free air remaining in the left hemithorax however the volume is not increased compared to the previous examinations. May be somewhat reduced. No other interval change or new finding. XR/XR chest 1V portable [id number] IMPRESSION: Stable to improved abnormal chest. Suggest obtaining an upright PA and lateral chest for comparison to the examina tion of 10/26/2025 when possible to get a more accurate determination.
[2025-10-28 09:17] LABS: Hematocrit 30.2 % (36-47); Hemoglobin 8.90 g/dL (11.27-16.99); Mean Corpuscular HGB Conc 29.5 g/dL (30-55); Mean Corpuscular Hemoglobin 28.7 pg (27-33); Mean Corpuscular Volume 97.4 fl (85-98); Nucleated Red Blood Cells % 0 %; Platelet Count 262 10^3/cmm (157-399); Red Blood Count 3.10 10^6/uL (3.85-5.65); White Blood Count 6.40 10^3/uL (3.29-11.43)
[2025-10-28 09:37] LABS: Anion Gap 12.4 (5-19); Blood Urea Nitrogen 32 mg/dL (8-23); Calcium 8.7 mg/dL (8.5-10.5); Carbon Dioxide 37 mmol/L (22-29); Chloride 96 mmol/L (98-107); Digoxin 1.1 ng/mL (0.6-1.2); Glucose 231 mg/dL (65-115); Osmolality Calculated 306 mOsm/kg (285-295); Potassium 4.4 mmol/L (3.5-5.1); Sodium 141 mmol/L (136-145)
--- NOTE | 2025-10-28 11:26 | XR_ITS ---
WS: [id number] XR foot RT min 3V* [id number] REASON FOR EXAM: family request FINDINGS: No acute fracture or focal bone lesion. No periosteal reaction or bone erosion. Subluxations at the PIP joints of the second through the fourth toes. 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 Sesamoids intact. Remainder of the joint spaces in the forefoot, midfoot, and hindfoot are intact and relatively well preserved. Small anterior and posterior calcaneal enthesophytes. XR/XR foot RT min 3V* [id number] IMPRESSION: No acute bone or joint abnormality.
== END 2025-10-28 16:28 | disposition short-term general hospital (02) ==
PROVIDERS: Emergency Provider Family Medicine; PCP Internal Medicine
DX: J18.9 Pneumonia, unspecified organism (principal); J96.12 Chronic respiratory failure with hypercapnia; J96.11 Chronic respiratory failure with hypoxia; J93.9 Pneumothorax, unspecified; E11.22 Type 2 diabetes mellitus with diabetic chronic kidney disease; I12.9 Hypertensive chronic kidney disease with stage 1 through stage 4 chronic kidney disease, or unspecified chronic kidney disease; N18.31 Chronic kidney disease, stage 3a; I48.91 Unspecified atrial fibrillation; Z79.4 Long term (current) use of insulin; Z87.891 Personal history of nicotine dependence; E78.2 Mixed hyperlipidemia
CPT/HCPCS: 36415; 36416; 71045; 73630; 80048; 80053; 80162; 81001; 82962; 83605; 85025; 87040; 93005; 96374; 99285; J2185; J9999